=== PATIENT | female | born 1970 | race Caucasian/White ===

== ENCOUNTER 2016-07-18 14:28 | Inpatient (IN) | payer OTHER ==
[~2016-07-18] VITALS: Ht 172.7 cm; Wt 60.0 kg
[~2016-07-18 14:28] MED LIST: ASCO500C7 PO; DIPHENHYDRAMINE TOP; ERGO500014 PO; FER325 PO; FOLI-49 PO; FURO-109 PO; GABA100C PO; HYDR-906 PO; IPRA3AMP INHALATION; KENC1 TOP; LACT20SO12 GTB; LEVO175T38 PO; MONT10TA24 PO; MULTI PO; OXYC20TA41 PO; PANT40TA4 PO; RIFA550T4 PO; THIA100T10 PO; TRAZ50TA18 PO; VENL75TA PO; ZINC TOP; ZINC220T PO
[2016-07-18 14:32] VITALS: Ht 172.7 cm; Wt 60.0 kg
[2016-07-18] MEDS ORDERED: ONDANSETRON 4 MG INJ IV STA (15:21)
[2016-07-18] MEDS ORDERED: HYDROmorphONE 1 MG/ML SYG IV STA ×2 (15:21→18:22)
--- NOTE | 2016-07-18 15:51 | RADRPT ---
PROCEDURE: XR Chest 1 View. CLINICAL INDICATION: Abnormal breath sounds, abdominal pain. TECHNIQUE: AP view of the chest was obtained. COMPARISON: None. FINDINGS: The cardiomediastinal silhouette is within normal limits. The lungs are hyperexpanded. No consolidat ions are identified. No pneumothorax is seen. Mild elevation of the right hemidiaphragm is noted. O sseous structures are intact. IMPRESSION: Hyperexpanded, clear lungs. Mild elevation of the right hemidiaphragm. RPTAT: AA .Luis Gallegos MD, Date Time Electronically viewed and signed by .Luis Gallegos MD, on 07/18/2016 15:51 .P/
[2016-07-18] MEDS ORDERED: FUROSEMIDE 40 MG INJ IV ONE (16:00)
[2016-07-18 16:26] LABS: ADD SCAN DIFF NO
[2016-07-18 16:29] LABS: BASOPHILS % 0.5 % (0.0-2.0); EOSINOPHILS # 0.1 10^3/ul (0.0-0.5); EOSINOPHILS % 2.2 % (0.0-7.0); HEMATOCRIT 38.1 % (37.0-47.0); HEMOGLOBIN 12.8 g/dl (12.0-16.0); LYMPHOCYTES # 1.8 10^3/ul (0.8-2.9); LYMPHOCYTES % 29.9 % (15.0-51.0); MEAN CORPUSCULAR HEMOGLOBIN 30.1 pg (29.0-33.0); MEAN CORPUSCULAR HGB CONC 33.6 g/dl (32.0-37.0); MEAN CORPUSCULAR VOLUME 89.6 fl (82.0-101.0); MEAN PLATELET VOLUME 9.1 fl (7.4-10.4); MONOCYTE # 0.1 10^3/ul (0.3-0.9); MONOCYTES % 2.1 % (0.0-11.0); NEUTROPHIL # 3.8 10^3/ul (1.6-7.5); NEUTROPHILS % 65.1 % (39.0-77.0); PLATELET COUNT 371 10^3/UL (140-415); RED BLOOD COUNT 4.25 10^6/ul (4.20-5.40); RED CELL DISTRIBUTION WIDTH 15.6 % (11.5-14.5); WHITE BLOOD COUNT 5.9 10^3/ul (4.8-10.8)
[2016-07-18] MEDS ORDERED: LIDOCAINE 1% (MPF) 5 ML VIAL SC ONE ×2 (16:30→20:00)
[2016-07-18 16:44] LABS: ALANINE AMINOTRANSFERASE 155 IU/L (13-69); ALBUMIN 1.9 g/dl (3.3-4.9); ALBUMIN/GLOBULIN RATIO 0.59; ALKALINE PHOSPHATASE 193 IU/L (42-121); ANION GAP 10 (8-16); ASPARTATE AMINO TRANSFERASE 274 IU/L (15-46); BLOOD UREA NITROGEN 10 mg/dl (7-20); CALCIUM 7.2 mg/dl (8.4-10.2); CARBON DIOXIDE 21 mmol/L (21-31); CHLORIDE 102 mmol/L (97-110); CREATININE 0.74 mg/dl (0.44-1.00); GLUCOSE 114 mg/dl (70-220); POTASSIUM 3.6 mmol/L (3.5-5.1); SODIUM 129 mmol/L (135-144); TOTAL PROTEIN 5.1 g/dl (6.1-8.1)
[2016-07-18 16:57] LABS: TROPONIN-I < 0.012 ng/ml (0.00-0.12)
[2016-07-18 17:33] LABS: ADD UMIC YES; URINE BILIRUBIN (Dip) NEGATIVE (NEGATIVE); URINE BLOOD (Dip) NEGATIVE (NEGATIVE); URINE COLOR LT. YELLOW (YELLOW); URINE GLUCOSE (Dip) NEGATIVE (NEGATIVE); URINE KETONES (Dip) NEGATIVE (NEGATIVE); URINE LEUKOCYTE ESTERASE (Dip) 1+ (NEGATIVE); URINE NITRITE (Dip) POSITIVE (NEGATIVE); URINE TOTAL PROTEIN (Dip) NEGATIVE (NEGATIVE); URINE UROBILINOGEN (Dip) 0.2 E.U./dL (0.1-1.0)
[2016-07-18 17:41] LABS: BACTERIA,URINE FEW; URINE RBCS NONE SEEN /HPF (0)
[2016-07-18] MEDS ORDERED: CIPROFLOXACIN 400MG/D5W 200 ML IVPB ONE (18:00)
[2016-07-18] MEDS ORDERED: ONDANSETRON 4 MG INJ IV PRN (18:30)
[2016-07-18] MEDS ORDERED: ACETAMINOPHEN 325 MG TAB PO PRN ×2 (18:30→20:00)
--- NOTE | 2016-07-18 19:23 | ERA ---
ER Documentation Chief Complaint Date/Time DATE: 07/18/16 TIME: 19:21 Chief Complaint SWOLLEN LOWER EXTREMITIES,GENERALIZED BODY RASH,GEN BODY PAIN HPI Patient is a 45-year-old female with chronic pain and thyroid disease who presents with "a lot of pain". She also feels like she has a significant amount of swelling to her upper and lower extremities. She also has an allergic reaction over her body with a red rash. The symptoms started 2 days ago. She takes pain medicines but she has run out of her pain medicines. She denies any new soaps, lotions, or medications. Upon review of old medical records she has multiple been to the ER for various complaints and she frequently gets admitted. ROS All systems reviewed and are negative except as per history of present illness. Medications Home Meds Active Scripts Gabapentin* (Neurontin*) 100 Mg Capsule, 100 MG PO BID Y for PAIN, #1 CAP Prov:EYAD BECERRA MD 01/24/16 Furosemide* (Lasix*) 40 Mg Tablet, 40 MG PO DAILY for 30 Days, TAB Prov:CHENCHO BANUELOS NP 12/30/15 Venlafaxine Hcl* (Venlafaxine Hcl*) 75 Mg Tablet, 150 MG PO DAILY for 30 Days, TAB Prov:CHENCHO BANUELOS NP 12/30/15 Triamcinolone Acetonide* (Kenalog*) 0.1%-15GM Cr, 1 APPLIC TOP BID for 30 Days Prov:CHENCHO BANUELOS NP 12/30/15 Montelukast Sodium* (Montelukast Sodium*) 10 Mg Tablet, 10 MG PO HS for 30 Days , TAB Prov:CHENCHO BANUELOS NP 12/30/15 Levothyroxine Sodium* (Levoxyl*) 175 Mcg Tablet, 175 MCG PO DAILY@06 for 30 Days , TAB Prov:CHENCHO BANUELOS NP 12/30/15 [Diphenhydramine 1%/Zinc Cr] 1 APPLIC CR No Conflict Check, 1 APPLIC TOP Q6 for 30 Days Prov:CHENCHO BANUELOS NP 12/30/15 Reported Medications Ipratropium-Albuterol (Ipratropium-Albuterol) 0.5-3 Mg/3 Ml Ampul.neb, 3 ML INHALATION Q4 Y for SHORTNESS OF BREATH, #30 VIAL 01/27/16 Thiamine* (Thiamine*) 100 Mg Tablet, 100 MG PO DAILY, TAB 01/27/16 Ascorbic Acid* (Vitamin C*) 500 Mg Capsule.sa, 500 MG PO DAILY, CAP 01/06/16 Zinc Sulfate* (Zinc Sulfate*) 220 Mg Tablet, 220 MG PO DAILY, TAB 01/06/16 Oxycodone Hcl* (Oxycontin*) 20 Mg Tab.er.12h, 10 MG PO BID, TAB 01/06/16 Discontinued Reported Medications Hydrocodone/Acetaminophen ([place] 5-325 Tablet) 1 Each Tablet, 1 EACH PO Q6 Y for PAIN, TAB 01/27/16 Multivitamins* (Theragran*) 1 Tab Tab, 1 TAB PO DAILY, TAB 01/06/16 Trazodone Hcl* (Trazodone Hcl*) 50 Mg Tablet, 50 MG PO QHS, #30 TAB 09/22/15 Discontinued Scripts Pantoprazole* (Pantoprazole*) 40 Mg Tablet.dr, 40 MG PO DAILY for 30 Days Prov:EYAD BECERRA MD 01/19/16 Lactulose* (Cephulac*) 20 Gm/30 Ml Soln, 20 GM GTB Q6 for 30 Days Prov:EYAD BECERRA MD 01/19/16 Rifaximin* (Xifaxan*) 550 Mg Tablet, 550 MG PO BID for 15 Days, TAB Prov:EYAD BECERRA MD 01/19/16 Folic Acid* (Folic Acid*) 1 Mg Tablet, 1 MG PO DAILY for 30 Days, TAB Prov:CHENCHO BANUELOS NP 12/30/15 Ferrous Sulfate* (Ferrous Sulfate*) 325 Mg Tabec, 325 MG PO TID for 30 Days, TAB Prov:CHENCHO BANUELOS NP 12/30/15 Ergocalciferol* (Drisdol* (Vitamin D2)) 50,000 Unit Capsule, 12030 UNIT PO Th@ 09 for 90 Days, CAP needs level repeated in 3 months and adjust dose per level. Prov:CEHNCHO BANUELOS NP 12/30/15 Allergies Allergies: Coded Allergies: Sulfa (Sulfonamide Antibiotics) (Verified Allergy, Intermediate, 07/18/16) prochlorperazine (Verified Allergy, Intermediate, 07/18/16) Penicillins (Unverified Allergy, Unknown, 07/18/16) cefaclor (Unverified Allergy, Unknown, 07/18/16) penicillin V (Verified Allergy, Unknown, 07/18/16) PMhx/Soc History of Surgery: Yes (see notes) Anesthesia Reaction: No Hx Neurological Disorder: Yes (AMS,COMA) Hx Respiratory Disorders: Yes (ASTHMA) Hx Cardiac Disorders: No Hx Psychiatric Problems: Yes (DEPRESSION) Hx Miscellaneous Medical Probl: Yes (see notes) Hx Alcohol Use: Yes Hx Substance Use: No Hx Tobacco Use: No Smoking Status: Never smoker FmHx Family History: diabetes Physical Exam Vitals Vital Signs Date Time Temp Pulse Resp B/P Pulse Ox O2 Delivery O2 Flow Rate FiO2 07/18/16 16:35 88 17 113/71 99 Room Air 07/18/16 14:32 98.2 126 18 110/75 98 Physical Exam Const: Mild distress Head: Atraumatic Eyes: Normal Conjunctiva ENT: Normal External Ears, Nose and Mouth. Neck: Full range of motion..~ No meningismus. Resp: Clear to auscultation bilaterally Cardio: Regular rate and rhythm, no murmurs Abd: Soft, non tender, non distended. Normal bowel sounds Skin: Diffuse erythematous rash with blanching Back: No midline or flank tenderness Ext: Upper and lower extremity swelling bilaterally Neur: Awake and alert Psych: Normal Mood and Affect Result Diagram: 07/18/16 1610 07/18/16 1610 Results 24 hrs Laboratory Tests Test 07/18/16 16:10 07/18/16 16:15 White Blood Count 5.910^3/ul Red Blood Count 4.2510^6/ul Hemoglobin 12.8g/dl Hematocrit 38.1% Mean Corpuscular Volume 89.6fl Mean Corpuscular Hemoglobin 30.1pg Mean Corpuscular Hemoglobin Concent 33.6g/dl Red Cell Distribution Width 15.6% Platelet Count 81183^3/UL Mean Platelet Volume 9.1fl Neutrophils % 65.1% Lymphocytes % 29.9% Monocytes % 2.1% Eosinophils % 2.2% Basophils % 0.5% Nucleated Red Blood Cells % 0.0/100WBC Neutrophils # 3.810^3/ul Lymphocytes # 1.810^3/ul Monocytes # 0.110^3/ul Eosinophils # 0.110^3/ul Basophils # 0.010^3/ul Nucleated Red Blood Cells # 0.010^3/ul Sodium Level 129mmol/L Potassium Level 3.6mmol/L Chloride Level 102mmol/L Carbon Dioxide Level 21mmol/L Anion Gap 10 Blood Urea Nitrogen 10mg/dl Creatinine 0.74mg/dl Glucose Level 114mg/dl Calcium Level 7.2mg/dl Total Bilirubin 0.0mg/dl Direct Bilirubin 0.00mg/dl Indirect Bilirubin 0.0mg/dl Aspartate Amino Transf (AST/SGOT) 274IU/L Alanine Aminotransferase (ALT/SGPT) 155IU/L Alkaline Phosphatase 193IU/L Troponin I < 0.012ng/ml Total Protein 5.1g/dl Albumin 1.9g/dl Globulin 3.20g/dl Albumin/Globulin Ratio 0.59 Lipase < 10U/L Urine Color LT. YELLOW Urine Clarity CLEAR Urine pH 6.0 Urine Specific [place] <=1.005 Urine Ketones NEGATIVE Urine Nitrite POSITIVE Urine Bilirubin NEGATIVE Urine Urobilinogen 0.2 E.U./dL Urine Leukocyte Esterase 1+ Urine Microscopic RBC NONE SEEN/HPF Urine Microscopic WBC 2-5/HPF Urine Bacteria FEW Urine Hemoglobin NEGATIVE Urine Glucose NEGATIVE% Urine Total Protein NEGATIVE Current Medications Medications (Trade) Dose Ordered Sig/Kristy Route PRN Reason Start Time Stop Time Status Last Admin Dose Admin Hydromorphone HCl (Dilaudid) 1 mg ONCE STAT IV 07/18/16 15:21 07/18/16 15:22 DC 07/18/16 16:33 Ondansetron HCl (Zofran Inj) 4 mg ONCE STAT IV 07/18/16 15:21 07/18/16 15:22 DC 07/18/16 16:33 Furosemide (Lasix) 40 mg ONCE ONCE IV 07/18/16 16:00 07/18/16 16:01 DC 07/18/16 16:35 Lidocaine 5 ml 5 ml ONCE ONCE SC 07/18/16 16:30 07/18/16 16:31 DC Ciprofloxacin/ Dextrose (Cipro Ivpb) 200 ml @ 200 mls/hr ONCE ONCE IVPB 07/18/16 18:00 07/18/16 18:59 DC 07/18/16 18:07 Ondansetron HCl (Zofran Inj) 4 mg BRIDGE ORDER PRN IV NAUSEA AND/OR VOMITING 07/18/16 18:30 07/19/16 18:29 Acetaminophen (Tylenol Tab) 650 mg ER BRIDGE PRN PO MILD PAIN/FEVER 07/18/16 18:30 07/19/16 18:29 Hydromorphone HCl (Dilaudid) 1 mg ONCE STAT IV 07/18/16 18:22 07/18/16 18:23 DC 07/18/16 19:13 Procedures/MDM EKG read by me: Rate/Rhythm: Regular rate and rhythm at a normal rate Intervals: Normal Impression: No evidence of ischemia or arrhythmia Patient is a 45-year-old female presents with acute anasarca. She has lymphedema diffusely. The patient was also found to have acute cystitis and will be given Cipro IV as she does have allergies to sulfa and penicillin. She has hyponatremia with a sodium of 129. I do believe that she requires admission to the hospital I spoke with Dr. Montanez from the panel team for admission. The patient will be admitted to a medical surgical bed. I am unclear as to the cause of her rash at this time but it does not appear to be cellulitis. There is no petechia or purpura. Departure Diagnosis: Primary Impression: Hyponatremia Additional Impressions: Swelling Anasarca Cystitis Condition: GRACE Cooley MD Jul 18, 2016 19:23
[2016-07-18] MEDS ORDERED: GABAPENTIN 100 MG CAP PO PRN (20:00)
[2016-07-18] MEDS ORDERED: NACL 0.9% 3 ML SYG IV SCH (20:00)
[2016-07-18] MEDS ORDERED: hydrALAzine 20 MG INJ IV PRN (20:00)
[2016-07-18] MEDS ORDERED: NA PHOSPHATE/BIPHOS 133 ML ENEMA PR PRN (20:00)
[2016-07-18] MEDS ORDERED: LORAZEPAM 2 MG INJ IV PRN (20:00)
[2016-07-18] MEDS ORDERED: ALBUTEROL/IPRATROPIUM (NEB) 3 ML AMP HHN PRN (20:00)
[2016-07-18] MEDS ORDERED: DOCUSATE SODIUM 100 MG CAP PO PRN (20:00)
[2016-07-18] MEDS ORDERED: NITROGLYCERIN (SL) 0.4 MG TAB SL PRN (20:00)
[2016-07-18] MEDS ORDERED: oxyCODONE (CR) 20 MG TAB [oxyCONTIN] PO SCH (21:00)
[2016-07-18 21:44] VITALS: TEMP 98
[2016-07-18 22:39] VITALS: BP 113/68; PULSE 81; RESP 18
[2016-07-18] MEDS: oxyCODONE (CR) 10 MG TAB [oxyCONTIN] PO SCH (23:48)
[2016-07-18] MEDS: MONTELUKAST 10 MG TAB PO SCH (23:48)
[2016-07-18] MEDS: HEPARIN 5,000 UNIT/0.5 ML VIAL SC SCH (23:49)
[2016-07-19] MEDS: morphine 2 MG INJ IV PRN ×5 (01:29→19:51)
[2016-07-19] MEDS: TRIAMCINOLONE ACET 0.1% 15 GM CR TOP SCH ×3 (01:29→21:37)
[2016-07-19] MEDS: HYDROCODONE/APAP (5/325) TAB PO PRN ×3 (02:53→22:55)
[2016-07-19] MEDS ORDERED: ZOLPIDEM 5 MG TAB PO PRN (04:00)
[2016-07-19] MEDS: PANTOPRAZOLE (EC) 40 MG TAB PO SCH (05:59)
[2016-07-19] MEDS: LEVOTHYROXINE 175 MCG TAB PO SCH (05:59)
[2016-07-19 06:19] LABS: CHOL/HDL RATIO 2.8 RATIO
[2016-07-19 06:41] LABS: THYROID STIMULATING HORMONE 41.2 MIU/L (0.465-4.680)
[2016-07-19 08:25] VITALS: BP 111/59; RESP 16
[2016-07-19] MEDS: ZINC SULFATE 220 MG CAP PO SCH (09:58)
[2016-07-19] MEDS: ASCORBIC ACID 500 MG TAB PO SCH (09:58)
[2016-07-19] MEDS: oxyCODONE (CR) 10 MG TAB [oxyCONTIN] PO SCH ×2 (09:58→21:36)
[2016-07-19] MEDS: VENLAFAXINE 75 MG TABLET PO SCH (09:58)
[2016-07-19] MEDS: THIAMINE 100 MG TAB PO SCH (09:58)
[2016-07-19] MEDS: HEPARIN 5,000 UNIT/0.5 ML VIAL SC SCH ×2 (10:01→21:38)
[2016-07-19 10:55] LABS: ADD SCAN DIFF NO
[2016-07-19 11:01] LABS: POTASSIUM 3.3 mmol/L (3.5-5.1)
[2016-07-19 11:03] LABS: CREATININE 0.88 mg/dl (0.44-1.00)
[2016-07-19 11:04] LABS: CALCIUM 6.9 mg/dl (8.4-10.2); MAGNESIUM 1.4 mg/dl (1.7-2.5); PHOSPHORUS 3.2 mg/dl (2.5-4.9)
[2016-07-19 11:05] LABS: BASOPHILS % 0.5 % (0.0-2.0); EOSINOPHILS # 0.2 10^3/ul (0.0-0.5); EOSINOPHILS % 2.3 % (0.0-7.0); HEMATOCRIT 34.4 % (37.0-47.0); HEMOGLOBIN 11.7 g/dl (12.0-16.0); LYMPHOCYTES # 2.6 10^3/ul (0.8-2.9); LYMPHOCYTES % 39.3 % (15.0-51.0); MEAN CORPUSCULAR HEMOGLOBIN 30.2 pg (29.0-33.0); MEAN CORPUSCULAR VOLUME 88.7 fl (82.0-101.0); MEAN PLATELET VOLUME 9.9 fl (7.4-10.4); MONOCYTE # 0.2 10^3/ul (0.3-0.9); MONOCYTES % 3.5 % (0.0-11.0); NEUTROPHIL # 3.5 10^3/ul (1.6-7.5); NEUTROPHILS % 54.2 % (39.0-77.0); PLATELET COUNT 344 10^3/UL (140-415); RED BLOOD COUNT 3.88 10^6/ul (4.20-5.40); RED CELL DISTRIBUTION WIDTH 15.5 % (11.5-14.5); WHITE BLOOD COUNT 6.5 10^3/ul (4.8-10.8)
[2016-07-19] MEDS ORDERED: MAGNESIUM SULFATE 2 GM/50 ML 50 ML IVPB ONE (14:30)
[2016-07-19] MEDS ORDERED: DIPHENHYDRAMINE 25 MG CAP PO PRN (15:00)
[2016-07-19] MEDS: FUROSEMIDE 40 MG INJ IV SCH ×2 (15:00→17:44)
--- NOTE | 2016-07-19 15:28 | HP ---
DATE OF ADMISSION: 07/18/2016 The patient was seen and examined by me on 07/18/2016. CHIEF COMPLAINT: Lower extremity swelling and body rash. HISTORY OF PRESENT ILLNESS: A 45-year-old female with a past medical history of chronic pain syndro me, hypothyroidism, status post gastric bypass surgery in the past, pain and opioid dependence, depr ession, GERD, prior diarrhea, alcoholic liver disease and asthma, who presents with significant swel ling of her both upper and lower extremities. She is also complaining of "a lot of pain". Apparent ly she has not been taking her home thyroid medicine or her Lasix medicine as well. She was last ad mitted at our hospital from 02/03/2016 to 2015. At that time she was treated for acute jernigan es in the sensation of her bilateral legs, chronic anemia and also for possible inflammatory bowel d isease at that time. Presently the patient has been having some nausea symptoms, but no upper or lo wer GI bleeding, no fevers or chills, no chest pain or shortness of breath. Apparently, she has bee n living at home with her parents over the last 2 weeks after spending some time in a nursing facili ty before that. PAST MEDICAL HISTORY: As stated above. ALLERGIES: 1. PENICILLIN. 2. SULFA MEDICINES. 3. CEFACLOR. 4. PENICILLIN V. 5. PROCHLORPERAZINE. HOME MEDICATIONS: Based on documentation includes: 1. Ipratropium/albuterol 2. Neurontin 100 mg b.i.d. p.r.n. 3. OxyContin 100 mg b.i.d. 4. Venlafaxine 150 mg daily. 5. Lasix 40 mg p.o. daily. 6. Zinc sulfate 220 mg daily. 7. Singulair 10 mg at bedtime. 8. Levoxyl 175 mcg daily. 9. Kenalog, apply topically b.i.d. 10. Vitamin C 500 mg daily. 11. Thiamine 100 mg daily. 12. Benadryl/zinc topically every 6 hours. SOCIAL HISTORY: Former heavy alcohol abuse history and former smoker. No IV drug abuse. FAMILY HISTORY: Positive for diabetes. PAST SURGICAL HISTORY: Looks like SVT with ablation in the past. Gastric bypass surgery in the pas t. Cholecystectomy in the past. PHYSICAL EXAMINATION: VITAL SIGNS: Today T-max 98.2, pulse 88 to 126, respirations 17 to 18, blood pressure 113/71, satur ating at 99% on room air. GENERAL: The patient is lying in bed, answering questions appropriately, slightly lethargic, but in no acute distress. HEENT: Pupils are equal, round, and react to light. Extraocular muscles intact. NECK: Supple. No thyromegaly. LUNGS: Clear to auscultation bilaterally. CARDIOVASCULAR: S1, S2 heard. No rubs or gallops. ABDOMEN: Soft, nontender, nondistended. Normal bowel sounds. No rebound or guarding. MUSCULOSKELETAL: 1+ pitting edema of the bilateral lower extremities to the thighs. SKIN: Diffuse erythematous rash with blanching. NEUROLOGIC: No focal deficits. LABORATORIES: CBC is completely normal. The basic metabolic panel is normal, except sodium is 129. AST is 274, ALT is 155, alkaline phosphatase is 193. Troponin is negative x1. Lipase is normal. Free T4 is low at 0.09 and TSH is high at 41.2. IMAGING: Chest x-ray was performed and shows hyperexpanded clear lungs. ASSESSMENT AND PLAN: This is a 45-year-old female coming in with generalized weakness and lower ext remity swelling. 1. Generalized weakness and lower extremity swelling, most likely secondary to medicine noncomplian ce, as she has history of what looks like end-stage liver disease. Possibly rule out , so will admit the patient to the med/surg floor. Will put her on Lasix medication as well and get a PT and OT consult as well, as she will need physical therapy. 2. Blanching rash. Unclear source. Will continue Kenalog and order for Benadryl as well. Will ch stephanie a TSH, A1c, and lipid panel. 3. History of pain and opioid dependence. Will continue her long-acting opioid medicines at home a nd also morphine p.r.n. Will monitor for any signs of any respiratory depression or hypotension. 4. History of gastric bypass surgery. Continue to monitor for now. 5. Hypothyroidism. Again, will put her back on levothyroxine. Apparently, she admits to not takin g her medicines every day at home and her thyroid panel seems to indicate that. 6. History of depression. Again, she is on Ativan p.r.n. Also continue Effexor. 7. History of gastroesophageal reflux disease. She is on Protonix. 8. Questionable alcoholic liver disease. Continue to monitor for now. Check an ammonia level as w ell. 9. Gastrointestinal prophylaxis. PPI. 10. Deep venous thrombosis prophylaxis. Heparin subcutaneously. Dictated By: TOSIN MACIAS Conf#: [id number] DID#: [id number]
[2016-07-19] MEDS ORDERED: AZTREONAM 2 GM in SOD CHLORIDE 0.9% 100 ML IVPB SCH (15:30)
[2016-07-19 19:54] VITALS: BP 112/69; PULSE 101; RESP 18
[2016-07-19] MEDS: MONTELUKAST 10 MG TAB PO SCH (21:37)
[2016-07-20] MEDS: morphine 2 MG INJ IV PRN ×4 (00:18→10:16)
[2016-07-20 05:28] LABS: ADD SCAN DIFF NO
[2016-07-20 05:36] LABS: BASOPHILS % 0.4 % (0.0-2.0); EOSINOPHILS # 0.3 10^3/ul (0.0-0.5); HEMATOCRIT 30.4 % (37.0-47.0); HEMOGLOBIN 10.6 g/dl (12.0-16.0); LYMPHOCYTES # 3.2 10^3/ul (0.8-2.9); LYMPHOCYTES % 61.4 % (15.0-51.0); MEAN CORPUSCULAR HEMOGLOBIN 30.6 pg (29.0-33.0); MEAN CORPUSCULAR HGB CONC 34.9 g/dl (32.0-37.0); MEAN CORPUSCULAR VOLUME 87.9 fl (82.0-101.0); MEAN PLATELET VOLUME 9.4 fl (7.4-10.4); MONOCYTE # 0.2 10^3/ul (0.3-0.9); MONOCYTES % 4.4 % (0.0-11.0); NEUTROPHIL # 1.5 10^3/ul (1.6-7.5); NEUTROPHILS % 28.6 % (39.0-77.0); PLATELET COUNT 234 10^3/UL (140-415); RED BLOOD COUNT 3.46 10^6/ul (4.20-5.40); RED CELL DISTRIBUTION WIDTH 15.1 % (11.5-14.5); WHITE BLOOD COUNT 5.2 10^3/ul (4.8-10.8)
[2016-07-20 05:44] LABS: MAGNESIUM 1.7 mg/dl (1.7-2.5)
[2016-07-20] MEDS: LEVOTHYROXINE 175 MCG TAB PO SCH (05:49)
[2016-07-20] MEDS: FUROSEMIDE 40 MG INJ IV SCH ×2 (05:49→19:25)
[2016-07-20] MEDS: PANTOPRAZOLE (EC) 40 MG TAB PO SCH (05:49)
[2016-07-20 06:07] LABS: POTASSIUM 3.6 mmol/L (3.5-5.1)
[2016-07-20 06:10] LABS: CREATININE 0.84 mg/dl (0.44-1.00)
--- NOTE | 2016-07-20 07:42 | PN ---
DATE: 07/19/2016 SUBJECTIVE: The patient more awake, asking about pain medications, complaining of a rash, slightly itchy, but otherwise no acute events overnight. Seen by physical therapy, nutrition team. OBJECTIVE: VITAL SIGNS: Stable. GENERAL: The patient is lying in bed, in no acute distress. HEENT: Pupils equal, round, reactive to light. Extraocular muscles intact. NECK: Supple, no thyromegaly. LUNGS: Clear to auscultation bilaterally. CARDIOVASCULAR: S1, S2 heard. No rubs or gallops. ABDOMEN: Soft, nontender, nondistended. Normal bowel sounds. No rebound or guarding. MUSCULOSKELETAL: 1+ pitting edema bilateral lower extremities to the thighs. NEUROLOGIC: No focal deficits. SKIN: There is still a diffuse erythematous rash with blanching noted on the upper and lower extrem ities bilaterally. LABORATORY DATA: CBC is normal. Basic metabolic panel is normal except the magnesium is 1.4, sodiu m is 131, potassium is 3.3. ASSESSMENT AND PLAN: A 45-year-old female coming in with lower extremity swelling, possible noncomp liance of medications, cystitis and weakness. 1. Weakness and lower extremity swelling. Again, continue Lasix for now. Continue PT monitoring a s well. Check an ammonia level given her history of possible end-stage liver disease as well. Lucy tor ins and outs. 2. Rash. Again, continue Kenalog and Benadryl as well. Follow up wound care nurse recommendations as well. 3. History of opioid dependency and cautiously use OxyContin for now. 4. History of gastric bypass. Continue proton pump inhibitor. 5. History of depression. Continue Effexor and Ativan p.r.n. 6. History of liver disease with lower extremity swelling. Continue Lasix. 7. Gastrointestinal prophylaxis, proton pump inhibitor. 8. Deep venous thrombosis prophylaxis, heparin. Dictated By: TOSIN MACIAS Conf#: [id number] DID#: [id number]
[2016-07-20] MEDS: HYDROCODONE/APAP (5/325) TAB PO PRN (07:50)
[2016-07-20 08:43] VITALS: BP 102/67; RESP 16
[2016-07-20] MEDS ORDERED: AZTREONAM 2 GM in SOD CHLORIDE 0.9% 100 ML IVPB SCH (09:00)
[2016-07-20] MEDS: ASCORBIC ACID 500 MG TAB PO SCH (09:14)
[2016-07-20] MEDS: ZINC SULFATE 220 MG CAP PO SCH (09:14)
[2016-07-20] MEDS: THIAMINE 100 MG TAB PO SCH (09:14)
[2016-07-20] MEDS: VENLAFAXINE 75 MG TABLET PO SCH (09:14)
[2016-07-20] MEDS: oxyCODONE (CR) 10 MG TAB [oxyCONTIN] PO SCH ×2 (09:15→21:27)
[2016-07-20] MEDS: HEPARIN 5,000 UNIT/0.5 ML VIAL SC SCH ×2 (09:15→21:28)
--- NOTE | 2016-07-20 10:11 | RADRPT ---
PROCEDURE: Left upper extremity venous ultrasound CLINICAL INDICATION: Left arm pain and swelling. Deep venous thrombosis. TECHNIQUE: Ricci scale, color doppler, spectral doppler ultrasound imaging of the venous system of the left upper extremity. Augmentation maneuvers were utilized. COMPARISON: No prior studies are available for comparison. FINDINGS: LEFT: Internal jugular vein: Patent. Subclavian vein: Patent. Axillary vein: Patent. Brachial vein: Patent. Basilic vein: Patent. Cephalic vein: Patent. Radial vein: Patent. Ulnar vein: Patent. IMPRESSION: No evidence of a deep vein thrombosis involving the left upper extremity. RPTAT: AADD .Tim Armijo MD, MD Date Time Electronically viewed and signed by .Tim Armijo MD, on 07/20/2016 10:10 .B/
[2016-07-20] MEDS: GABAPENTIN 100 MG CAP PO SCH ×2 (10:15→21:26)
[2016-07-20] MEDS: TRIAMCINOLONE ACET 0.1% 15 GM CR TOP SCH ×2 (13:00→21:00)
[2016-07-20] MEDS: IMIPENEM-CILAST 500MG IV (PMX) 100 ML IVPB SCH ×2 (13:14→22:10)
[2016-07-20] MEDS ORDERED: oxyCODONE 15 MG TAB PO PRN (14:00)
--- NOTE | 2016-07-20 14:10 | PN ---
Date/Time of Note Date/Time of Note DATE: 07/20/16 TIME: 14:06 Assessment/Plan VTE Prophylaxis VTE Prophylaxis Intervention: heparin Lines/Catheters IV Catheter Type (from Nrs): Saline Lock Urinary Cath still in place: Yes Reason Cath still needed: urinary retention Assessment/Plan Chief Complaint/Hosp Course ASSESSMENT AND PLAN: 45-year-old female coming in with lower extremity swelling , possible noncompliance of medications, cystitis and weakness. 1. Weakness and lower extremity swelling - slowly improving, possibly sec to liver ds and non-compliance. - Again, continue Lasix for now. - f/u ammonia level given her history of possible end-stage liver disease as well. - Monitor ins and outs. 2. Rash: - will continue Kenalog and Benadryl as well. - will also add solumedrol - Follow up wound care nurse recommendations as well. 3. History of opioid dependency - appreciate pain/palliative consult - pain meds per their rec's 4. History of gastric bypass. Continue proton pump inhibitor. 5. History of depression. Continue Effexor and Ativan p.r.n. 6. History of liver disease with lower extremity swelling. - Continue Lasix. 7. Gastrointestinal prophylaxis, proton pump inhibitor. 8. Deep venous thrombosis prophylaxis, heparin. Problems: Subjective 24 Hr Interval Summary Free Text/Dictation No acute events overnight, seen by palliative team. Exam/Review of Systems Vital Signs Vitals Vital Signs Date Time Temp Pulse Resp B/P Pulse Ox O2 Delivery O2 Flow Rate FiO2 07/20/16 08:43 98.1 91 16 102/67 93 07/19/16 19:54 Room Air Intake and Output 07/19/16 07/19/16 07/20/16 15:00 23:00 07:00 Intake Total 1190 ml 400 ml Output Total 300 ml Balance 1190 ml 100 ml Exam GENERAL: The patient is lying in bed, in no acute distress. HEENT: Pupils equal, round, reactive to light. Extraocular muscles intact. NECK: Supple, no thyromegaly. LUNGS: Clear to auscultation bilaterally. CARDIOVASCULAR: S1, S2 heard. No rubs or gallops. ABDOMEN: Soft, nontender, nondistended. Normal bowel sounds. No rebound or guarding. MUSCULOSKELETAL: 1+ pitting edema bilateral lower extremities to the thighs. NEUROLOGIC: No focal deficits. SKIN: some diffuse erythematous rash with blanching noted on the upper and lower extremities bilaterally. Results Result Diagram: 07/20/16 0500 07/20/16 0500 Results 24 hrs Laboratory Tests Test 07/20/16 05:00 White Blood Count 5.2 Red Blood Count 3.46 L Hemoglobin 10.6 L Hematocrit 30.4 L Mean Corpuscular Volume 87.9 Mean Corpuscular Hemoglobin 30.6 Mean Corpuscular Hemoglobin Concent 34.9 Red Cell Distribution Width 15.1 H Platelet Count 234 # Mean Platelet Volume 9.4 Neutrophils % 28.6 L Lymphocytes % 61.4 H Monocytes % 4.4 Eosinophils % 5.0 Basophils % 0.4 Nucleated Red Blood Cells % 0.0 Neutrophils # 1.5 L Lymphocytes # 3.2 H Monocytes # 0.2 L Eosinophils # 0.3 Basophils # 0.0 Nucleated Red Blood Cells # 0.0 Sodium Level 128 L Potassium Level 3.6 Chloride Level 95 L Carbon Dioxide Level 27 Anion Gap 10 Blood Urea Nitrogen 14 Creatinine 0.84 Glucose Level 70 # Calcium Level 7.0 L Phosphorus Level 3.0 Magnesium Level 1.7 Medications Medications Current Medications Ondansetron HCl (Zofran Inj) 4 mg Q6H PRN IV NAUSEA AND/OR VOMITING; Start at 20:00 Acetaminophen (Tylenol Tab) 650 mg Q6H PRN PO PAIN LEVEL 1-3 OR FEVER; Start at 20:00 Docusate Sodium (Colace) 100 mg Q12H PRN PO CONSTIPATION; Start 07/18/16 at 20: 00 Magnesium Hydroxide (Milk Of Mag) 30 ml DAILY PRN PO CONSTIPATION; Start at 20:00 Sodium Biphosphate/ Sodium Phosphate (Fleet Enema) 133 ml DAILY PRN [place] CONSTIPATION; Start 07/18/16 at 20:00 Pantoprazole (Protonix Tab) 40 mg DAILY@06 PO Last administered on 07/20/16 05 :49; Admin Dose 40 MG; Start 07/19/16 at 06:00 Heparin Sodium (Porcine) (Heparin (5000 Units/0.5 ml)) 5,000 unit Q12 SC Last administered on 07/20/16 09:15; Admin Dose 5,000 UNIT; Start 07/18/16 at 21:00 Hydralazine HCl (Apresoline) 10 mg Q6H PRN IV ELEVATED BLOOD PRESSURE; Start at 20:00 Nitroglycerin (Nitroglycerin (Sl Tab) 0.4 Mg) 1 tab Q5M PRN SL ANGINA; Start at 20:00 Ascorbic Acid (Vitamin C) 500 mg DAILY PO Last administered on 07/20/16 09:14 ; Admin Dose 500 MG; Start 07/19/16 at 09:00 Levothyroxine Sodium (Synthroid) 175 mcg DAILY@06 PO Last administered on 05:49; Admin Dose 175 MCG; Start 07/19/16 at 06:00 Montelukast Sodium (Singulair) 10 mg HS PO Last administered on 07/19/16 21:37 ; Admin Dose 10 MG; Start 07/18/16 at 21:00 Thiamine HCl (Vitamin B1) 100 mg DAILY PO Last administered on 07/20/16 09:14 ; Admin Dose 100 MG; Start 07/19/16 at 09:00 Triamcinolone Acetonide (Kenalog 0.1% Cr) 1 applic BID TOP Last administered on 07/20/16 13:00; Admin Dose 1 APPLIC; Start 07/18/16 at 21:00 Venlafaxine HCl (Effexor) 150 mg DAILY PO Last administered on 07/20/16 09:14 ; Admin Dose 150 MG; Start 07/19/16 at 09:00 Zinc Sulfate (Zinc Sulfate) 220 mg DAILY PO Last administered on 07/20/16 09: 14; Admin Dose 220 MG; Start 07/19/16 at 09:00 Diphenhydramine HCl (Benadryl) 25 mg Q6H PRN PO ITCHING; Start 07/19/16 at 15: 00 Gabapentin 100 mg 100 mg BID PO Last administered on 07/20/16 10:15; Admin Dose 100 MG; Start 07/20/16 at 09:00 Imipenem/ Cilastatin Sodium (Primaxin 500 Mg/ 100 ml (Pmx)) 100 ml @ 100 mls/ hr Q8 IVPB Last administered on 07/20/16 13:14; Admin Dose 100 MLS/HR; Start 07/20/16 at 12:00 Non-Formulary Medication . BID TOP ; Start 07/20/16 at 21:00 Oxycodone HCl (Oxycontin) 30 mg BID PO ; Start 07/20/16 at 21:00 Oxycodone HCl (Roxicodone) 15 mg Q6H PRN PO PAIN LEVEL 4-6; Start 07/20/16 at 14:00 TOSIN ENCARNACION Jul 20, 2016 14:10
[2016-07-20] MEDS ORDERED: LIDOCAINE 1% (MPF) 5 ML VIAL SC ONE ×2 (14:30→15:00)
--- NOTE | 2016-07-20 18:57 | RADRPT ---
PROCEDURE: XR Chest. CLINICAL INDICATION: PICC placement TECHNIQUE: AP chest x-ray, portable COMPARISON: 07/18/2016 FINDINGS: There is interval placement of a left PICC with the tip at the cavoatrial junction. The lungs are h yperexpanded but clear. No focal opacification is seen. The patient's right arm soft tissues overl ies the right lateral thorax. The cardiomediastinal silhouette is unremarkable. The osseous struct ures are unremarkable. Surgical clips are noted in the right lower neck. IMPRESSION: Interval placement of left PICC with the tip overlying the cavoatrial junction. No evidence of pneum othorax. Otherwise, no significant interval change. RPTAT: QQ .Dov Adair MD, Date Time Electronically viewed and signed by .Dov Adair MD, on 07/20/2016 18:57 .A/
[2016-07-20] MEDS: METHYLPREDNISOLONE 40 MG INJ IV SCH ×2 (19:25→22:10)
[2016-07-20] MEDS ORDERED: SOD CHLORIDE 0.9% 100 ML ONE (20:52)
[2016-07-20] MEDS: MONTELUKAST 10 MG TAB PO SCH (21:27)
[2016-07-20 21:39] VITALS: BP 108/79; RESP 18
[2016-07-20] MEDS: TRIAMCINOLONE ACETONIDE 0.1% TOP SCH (21:59)
[2016-07-21] MEDS: oxyCODONE 5 MG TAB PO PRN ×4 (00:26→18:40)
[2016-07-21] MEDS: LEVOTHYROXINE 175 MCG TAB PO SCH (05:40)
[2016-07-21] MEDS: PANTOPRAZOLE (EC) 40 MG TAB PO SCH (05:40)
[2016-07-21] MEDS: METHYLPREDNISOLONE 40 MG INJ IV SCH ×3 (05:40→21:40)
[2016-07-21] MEDS: IMIPENEM-CILAST 500MG IV (PMX) 100 ML IVPB SCH ×3 (05:40→21:40)
[2016-07-21] MEDS: FUROSEMIDE 40 MG INJ IV SCH ×2 (05:46→18:05)
[2016-07-21 07:27] LABS: ADD SCAN DIFF NO
[2016-07-21 07:35] LABS: HEMOGLOBIN 12.1 g/dl (12.0-16.0); MEAN CORPUSCULAR HGB CONC 35.6 g/dl (32.0-37.0); MEAN CORPUSCULAR VOLUME 87.2 fl (82.0-101.0); MEAN PLATELET VOLUME 9.8 fl (7.4-10.4); PLATELET COUNT 238 10^3/UL (140-415); RED CELL DISTRIBUTION WIDTH 14.4 % (11.5-14.5); WHITE BLOOD COUNT 2.1 10^3/ul (4.8-10.8)
[2016-07-21 07:52] LABS: POTASSIUM 3.7 mmol/L (3.5-5.1)
[2016-07-21 07:53] VITALS: BP 132/73; RESP 20
[2016-07-21 07:54] LABS: CREATININE 0.77 mg/dl (0.44-1.00)
[2016-07-21 07:55] LABS: CALCIUM 7.2 mg/dl (8.4-10.2)
[2016-07-21] MEDS: TRIAMCINOLONE ACET 0.1% 15 GM CR TOP SCH ×2 (09:00→21:00)
[2016-07-21 10:17] LABS: LYMPHOCYTES # 0.8 10^3/ul (0.8-2.9); NEUTROPHIL # 1.3 10^3/ul (1.6-7.5)
[2016-07-21 10:26] LABS: PLATELET ESTIMATE PLT APPEAR ADEQUATE
[2016-07-21] MEDS: HEPARIN 5,000 UNIT/0.5 ML VIAL SC SCH ×2 (10:26→20:40)
[2016-07-21] MEDS: ONDANSETRON 4 MG INJ IV PRN ×2 (10:28→20:48)
[2016-07-21] MEDS: GABAPENTIN 100 MG CAP PO SCH ×2 (10:28→20:38)
[2016-07-21] MEDS: THIAMINE 100 MG TAB PO SCH (10:28)
[2016-07-21] MEDS: oxyCODONE (CR) 10 MG TAB [oxyCONTIN] PO SCH ×2 (10:29→20:39)
[2016-07-21] MEDS: VENLAFAXINE 75 MG TABLET PO SCH (10:29)
[2016-07-21] MEDS: ZINC SULFATE 220 MG CAP PO SCH (10:30)
[2016-07-21] MEDS: TRIAMCINOLONE ACETONIDE 0.1% TOP SCH ×2 (10:30→20:41)
[2016-07-21] MEDS: ASCORBIC ACID 500 MG TAB PO SCH (10:30)
--- NOTE | 2016-07-21 10:45 | RADRPT ---
PROCEDURE: Ultrasound guidance for placement of needle in left upper extremity vein. CLINICAL INDICATION: Venous access. TECHNIQUE: Limited sonography of the left upper extremity was performed. Ultrasound images were recorded and s tored in the patient's medical record. COMPARISON: None. FINDINGS: The ultrasound images demonstrate a patent left upper extremity vein. The PICC line was inserted by the PICC line nurse. IMPRESSION: 1. Ultrasound guidance for a needle placement in a left upper extremity vein. 2. The left upper extremity vein is patent. RPTAT: QQ .Abebe Goel MD, MD Date Time Electronically viewed and signed by .Abebe Goel MD, MD on 07/21/2016 10:44 .R/
--- NOTE | 2016-07-21 14:40 | PN ---
Date/Time of Note Date/Time of Note DATE: 07/21/16 TIME: 14:28 Assessment/Plan VTE Prophylaxis VTE Prophylaxis Intervention: heparin Lines/Catheters IV Catheter Type (from Nrs): PICC Line Central line still needed: Yes Urinary Cath still in place: Yes Reason Cath still needed: urinary retention Assessment/Plan Chief Complaint/Hosp Course ASSESSMENT AND PLAN: 45-year-old female coming in with lower extremity swelling , possible noncompliance of medications, cystitis and weakness. 1. Weakness and lower extremity swelling - slowly improving, possibly sec to liver ds and non-compliance. - Again, continue Lasix for now. - f/u ammonia level given her history of possible end-stage liver disease as well. - Monitor ins and outs. 2. Rash: - will continue Kenalog and Benadryl as well. - continue solumedrol IV for now - Follow up wound care nurse recommendations as well. 3. History of opioid dependency - appreciate pain/palliative consult - pain meds per their rec's 4. History of gastric bypass. Continue proton pump inhibitor. 5. History of depression. Continue Effexor and Ativan p.r.n. 6. History of liver disease with lower extremity swelling. - Continue Lasix. 7. Gastrointestinal prophylaxis, proton pump inhibitor. 8. Deep venous thrombosis prophylaxis, heparin. Problems: Subjective 24 Hr Interval Summary Free Text/Dictation No acute events overnight, had PICC placement yesterday. Exam/Review of Systems Vital Signs Vitals Vital Signs Date Time Temp Pulse Resp B/P Pulse Ox O2 Delivery O2 Flow Rate FiO2 07/21/16 07:53 98.6 81 20 132/73 98 07/19/16 19:54 Room Air Intake and Output 07/20/16 07/20/16 07/21/16 15:00 23:00 07:00 Intake Total 100 ml 1280 ml 200 ml Output Total 2400 ml Balance 100 ml -1120 ml 200 ml Exam GENERAL: The patient is lying in bed, in no acute distress. HEENT: Pupils equal, round, reactive to light. Extraocular muscles intact. NECK: Supple, no thyromegaly. LUNGS: Clear to auscultation bilaterally. CARDIOVASCULAR: S1, S2 heard. No rubs or gallops. ABDOMEN: Soft, nontender, nondistended. Normal bowel sounds. No rebound or guarding. MUSCULOSKELETAL: 1+ pitting edema bilateral lower extremities to the thighs. NEUROLOGIC: No focal deficits. SKIN: some diffuse erythematous rash with blanching noted on the upper and lower extremities bilaterally. Results Result Diagram: 07/21/1642907/21/16429 Results 24 hrs Laboratory Tests Test 07/21/16 04:30 White Blood Count 2.1 #L Red Blood Count 3.90 L Hemoglobin 12.1 Hematocrit 34.0 L Mean Corpuscular Volume 87.2 Mean Corpuscular Hemoglobin 31.0 Mean Corpuscular Hemoglobin Concent 35.6 Red Cell Distribution Width 14.4 Platelet Count 238 Mean Platelet Volume 9.8 Neutrophils % 62.0 Band Neutrophils % 1.0 Lymphocytes % 36.0 Monocytes % 1.0 Neutrophils # 1.3 L Lymphocytes # 0.8 Monocytes # 0.0 L Platelet Estimate PLT APPEAR ADEQUATE Sodium Level 127 L Potassium Level 3.7 Chloride Level 89 L Carbon Dioxide Level 28 Anion Gap 14 Blood Urea Nitrogen 17 Creatinine 0.77 Glucose Level 108 Calcium Level 7.2 L Ammonia 31 H Medications Medications Current Medications Ondansetron HCl (Zofran Inj) 4 mg Q6H PRN IV NAUSEA AND/OR VOMITING Last administered on 07/21/16 10:28; Admin Dose 4 MG; Start 07/18/16 at 20:00 Acetaminophen (Tylenol Tab) 650 mg Q6H PRN PO PAIN LEVEL 1-3 OR FEVER; Start at 20:00 Docusate Sodium (Colace) 100 mg Q12H PRN PO CONSTIPATION; Start 07/18/16 at 20: 00 Magnesium Hydroxide (Milk Of Mag) 30 ml DAILY PRN PO CONSTIPATION; Start at 20:00 Sodium Biphosphate/ Sodium Phosphate (Fleet Enema) 133 ml DAILY PRN [place] CONSTIPATION; Start 07/18/16 at 20:00 Pantoprazole (Protonix Tab) 40 mg DAILY@06 PO Last administered on 07/21/16 05 :40; Admin Dose 40 MG; Start 07/19/16 at 06:00 Heparin Sodium (Porcine) (Heparin (5000 Units/0.5 ml)) 5,000 unit Q12 SC Last administered on 07/21/16 10:26; Admin Dose 5,000 UNIT; Start 07/18/16 at 21:00 Hydralazine HCl (Apresoline) 10 mg Q6H PRN IV ELEVATED BLOOD PRESSURE; Start at 20:00 Nitroglycerin (Nitroglycerin (Sl Tab) 0.4 Mg) 1 tab Q5M PRN SL ANGINA; Start at 20:00 Ascorbic Acid (Vitamin C) 500 mg DAILY PO Last administered on 07/21/16 10:30 ; Admin Dose 500 MG; Start 07/19/16 at 09:00 Levothyroxine Sodium (Synthroid) 175 mcg DAILY@06 PO Last administered on 05:40; Admin Dose 175 MCG; Start 07/19/16 at 06:00 Montelukast Sodium (Singulair) 10 mg HS PO Last administered on 07/20/16 21:27 ; Admin Dose 10 MG; Start 07/18/16 at 21:00 Thiamine HCl (Vitamin B1) 100 mg DAILY PO Last administered on 07/21/16 10:28 ; Admin Dose 100 MG; Start 07/19/16 at 09:00 Triamcinolone Acetonide (Kenalog 0.1% Cr) 1 applic BID TOP Last administered on 07/20/16 13:00; Admin Dose 1 APPLIC; Start 07/18/16 at 21:00 Venlafaxine HCl (Effexor) 150 mg DAILY PO Last administered on 07/21/16 10:29 ; Admin Dose 150 MG; Start 07/19/16 at 09:00 Zinc Sulfate (Zinc Sulfate) 220 mg DAILY PO Last administered on 07/21/16 10: 30; Admin Dose 220 MG; Start 07/19/16 at 09:00 Diphenhydramine HCl (Benadryl) 25 mg Q6H PRN PO ITCHING; Start 07/19/16 at 15: 00 Gabapentin 100 mg 100 mg BID PO Last administered on 07/21/16 10:28; Admin Dose 100 MG; Start 07/20/16 at 09:00 Imipenem/ Cilastatin Sodium (Primaxin 500 Mg/ 100 ml (Pmx)) 100 ml @ 100 mls/ hr Q8 IVPB Last administered on 07/21/16 13:42; Admin Dose 100 MLS/HR; Start 07/20/16 at 12:00 Non-Formulary Medication . BID TOP Last administered on 07/21/16 10:30; Admin Dose 1 EA; Start 07/20/16 at 21:00 Oxycodone HCl (Oxycontin) 30 mg BID PO Last administered on 07/21/16 10:29; Admin Dose 30 MG; Start 07/20/16 at 21:00 Methylprednisolone Sodium Succinate (Solu-Medrol) 40 mg Q8 IV Last administered on 07/21/16 13:42; Admin Dose 40 MG; Start 07/20/16 at 14:30 Oxycodone HCl (Roxicodone) 15 mg Q6H PRN PO PAIN LEVEL 4-6 Last administered on 07/21/16 12:49; Admin Dose 15 MG; Start 07/20/16 at 15:00 IV Flush (NS 10 ml) 10 ml PRN PRN IV IV PROTOCOL; Start 07/20/16 at 21:30 TOSIN ENCARNACION Jul 21, 2016 14:40
[2016-07-21 20:20] VITALS: BP 108/75; RESP 18
[2016-07-21] MEDS: MONTELUKAST 10 MG TAB PO SCH (20:41)
[2016-07-22] MEDS: DIPHENHYDRAMINE 50 MG INJ IV PRN (00:35)
[2016-07-22] MEDS: oxyCODONE 5 MG TAB PO PRN ×3 (04:29→18:39)
[2016-07-22] MEDS: IMIPENEM-CILAST 500MG IV (PMX) 100 ML IVPB SCH ×3 (05:27→21:55)
[2016-07-22] MEDS: LEVOTHYROXINE 175 MCG TAB PO SCH (05:27)
[2016-07-22] MEDS: PANTOPRAZOLE (EC) 40 MG TAB PO SCH (05:27)
[2016-07-22] MEDS: METHYLPREDNISOLONE 40 MG INJ IV SCH ×3 (05:27→21:53)
[2016-07-22] MEDS: FUROSEMIDE 40 MG INJ IV SCH ×2 (05:28→17:31)
[2016-07-22 08:08] LABS: ADD SCAN DIFF NO
[2016-07-22 08:15] LABS: HEMATOCRIT 34.5 % (37.0-47.0); HEMOGLOBIN 11.8 g/dl (12.0-16.0); LYMPHOCYTES # 1.5 10^3/ul (0.8-2.9); LYMPHOCYTES % 37.1 % (15.0-51.0); MEAN CORPUSCULAR HEMOGLOBIN 30.1 pg (29.0-33.0); MEAN CORPUSCULAR HGB CONC 34.2 g/dl (32.0-37.0); MEAN PLATELET VOLUME 9.5 fl (7.4-10.4); MONOCYTE # 0.2 10^3/ul (0.3-0.9); MONOCYTES % 3.9 % (0.0-11.0); NEUTROPHIL # 2.4 10^3/ul (1.6-7.5); NEUTROPHILS % 57.8 % (39.0-77.0); PLATELET COUNT 225 10^3/UL (140-415); RED BLOOD COUNT 3.92 10^6/ul (4.20-5.40); RED CELL DISTRIBUTION WIDTH 14.1 % (11.5-14.5); WHITE BLOOD COUNT 4.1 10^3/ul (4.8-10.8)
[2016-07-22 08:16] VITALS: BP 115/78; RESP 17
[2016-07-22 08:27] LABS: POTASSIUM 3.4 mmol/L (3.5-5.1)
[2016-07-22 08:30] LABS: CREATININE 1.01 mg/dl (0.44-1.00)
[2016-07-22 08:31] LABS: CALCIUM 7.5 mg/dl (8.4-10.2)
[2016-07-22] MEDS: HEPARIN 5,000 UNIT/0.5 ML VIAL SC SCH ×2 (08:34→21:55)
[2016-07-22] MEDS: THIAMINE 100 MG TAB PO SCH (08:34)
[2016-07-22] MEDS: ZINC SULFATE 220 MG CAP PO SCH (08:34)
[2016-07-22] MEDS: GABAPENTIN 100 MG CAP PO SCH ×2 (08:35→21:52)
[2016-07-22] MEDS: VENLAFAXINE 75 MG TABLET PO SCH (08:35)
[2016-07-22] MEDS: ASCORBIC ACID 500 MG TAB PO SCH (08:35)
[2016-07-22] MEDS: oxyCODONE (CR) 10 MG TAB [oxyCONTIN] PO SCH ×2 (08:35→21:52)
[2016-07-22] MEDS: TRIAMCINOLONE ACETONIDE 0.1% TOP SCH ×2 (08:41→22:02)
--- NOTE | 2016-07-22 12:45 | PN ---
Date/Time of Note Date/Time of Note DATE: 07/22/16 TIME: 12:42 Assessment/Plan VTE Prophylaxis VTE Prophylaxis Intervention: heparin Lines/Catheters IV Catheter Type (from Nrsg): PICC Line Central line still needed: Yes Urinary Cath still in place: Yes Reason Cath still needed: urinary retention Assessment/Plan Chief Complaint/Hosp Course ASSESSMENT AND PLAN: 45-year-old female coming in with lower extremity swelling , possible noncompliance of medications, cystitis and weakness. 1. Weakness and lower extremity swelling - slowly improving, possibly sec to liver ds and non-compliance. - Again, continue Lasix for now. - f/u ammonia level given her history of possible end-stage liver disease as well. - Monitor ins and outs. 2. Rash - improved - will continue Kenalog and Benadryl as well. - continue solumedrol IV for now - Follow up wound care nurse recommendations as well. 3. History of opioid dependency - appreciate pain/palliative consult - pain meds per their rec's 4. History of gastric bypass. Continue proton pump inhibitor. 5. History of depression. Continue Effexor and Ativan p.r.n. 6. History of liver disease with lower extremity swelling. - Continue Lasix. 7. Gastrointestinal prophylaxis, proton pump inhibitor. 8. Deep venous thrombosis prophylaxis, heparin. Problems: Subjective 24 Hr Interval Summary Free Text/Dictation Pt had no acute events overnight. Exam/Review of Systems Vital Signs Vitals Vital Signs Date Time Temp Pulse Resp B/P Pulse Ox O2 Delivery O2 Flow Rate FiO2 07/22/16 08:16 98.3 89 17 115/78 92 07/19/16 19:54 Room Air Intake and Output 07/21/16 07/21/16 07/22/16 15:00 23:00 07:00 Intake Total 100 ml 1120 ml 680 ml Output Total 1450 ml 1800 ml Balance 100 ml -330 ml -1120 ml Exam GENERAL: The patient is lying in bed, in no acute distress. HEENT: Pupils equal, round, reactive to light. Extraocular muscles intact. NECK: Supple, no thyromegaly. LUNGS: Clear to auscultation bilaterally. CARDIOVASCULAR: S1, S2 heard. No rubs or gallops. ABDOMEN: Soft, nontender, nondistended. Normal bowel sounds. No rebound or guarding. MUSCULOSKELETAL: 1+ pitting edema bilateral lower extremities to the thighs. NEUROLOGIC: No focal deficits. SKIN: less erythematous rash with blanching noted on the upper and lower extremities bilaterally. Results Result Diagram: 07/22/16 0740 07/22/16 0740 Results 24 hrs Laboratory Tests Test 07/22/16 07:40 White Blood Count 4.1 #L Red Blood Count 3.92 L Hemoglobin 11.8 L Hematocrit 34.5 L Mean Corpuscular Volume 88.0 Mean Corpuscular Hemoglobin 30.1 Mean Corpuscular Hemoglobin Concent 34.2 Red Cell Distribution Width 14.1 Platelet Count 225 Mean Platelet Volume 9.5 Neutrophils % 57.8 Lymphocytes % 37.1 Monocytes % 3.9 Eosinophils % 0.0 Basophils % 0.0 Nucleated Red Blood Cells % 0.0 Neutrophils # 2.4 Lymphocytes # 1.5 Monocytes # 0.2 L Eosinophils # 0.0 Basophils # 0.0 Nucleated Red Blood Cells # 0.0 Sodium Level 128 L Potassium Level 3.4 L Chloride Level 84 L Carbon Dioxide Level 36 H Anion Gap 11 Blood Urea Nitrogen 21 H Creatinine 1.01 H Glucose Level 96 Calcium Level 7.5 L Medications Medications Current Medications Ondansetron HCl (Zofran Inj) 4 mg Q6H PRN IV NAUSEA AND/OR VOMITING Last administered on 07/21/16 20:48; Admin Dose 4 MG; Start 07/18/16 at 20:00 Acetaminophen (Tylenol Tab) 650 mg Q6H PRN PO PAIN LEVEL 1-3 OR FEVER; Start at 20:00 Docusate Sodium (Colace) 100 mg Q12H PRN PO CONSTIPATION; Start 07/18/16 at 20: 00 Magnesium Hydroxide (Milk Of Mag) 30 ml DAILY PRN PO CONSTIPATION; Start at 20:00 Sodium Biphosphate/ Sodium Phosphate (Fleet Enema) 133 ml DAILY PRN HI CONSTIPATION; Start 07/18/16 at 20:00 Pantoprazole (Protonix Tab) 40 mg DAILY@06 PO Last administered on 07/22/16 05 :27; Admin Dose 40 MG; Start 07/19/16 at 06:00 Heparin Sodium (Porcine) (Heparin (5000 Units/0.5 ml)) 5,000 unit Q12 SC Last administered on 07/22/16 08:34; Admin Dose 5,000 UNIT; Start 07/18/16 at 21:00 Hydralazine HCl (Apresoline) 10 mg Q6H PRN IV ELEVATED BLOOD PRESSURE; Start at 20:00 Nitroglycerin (Nitroglycerin (Sl Tab) 0.4 Mg) 1 tab Q5M PRN SL ANGINA; Start at 20:00 Ascorbic Acid (Vitamin C) 500 mg DAILY PO Last administered on 07/22/16 08:35 ; Admin Dose 500 MG; Start 07/19/16 at 09:00 Levothyroxine Sodium (Synthroid) 175 mcg DAILY@06 PO Last administered on 05:27; Admin Dose 175 MCG; Start 07/19/16 at 06:00 Montelukast Sodium (Singulair) 10 mg HS PO Last administered on 07/21/16 20:41 ; Admin Dose 10 MG; Start 07/18/16 at 21:00 Thiamine HCl (Vitamin B1) 100 mg DAILY PO Last administered on 07/22/16 08:34 ; Admin Dose 100 MG; Start 07/19/16 at 09:00 Triamcinolone Acetonide (Kenalog 0.1% Cr) 1 applic BID TOP Last administered on 07/20/16 13:00; Admin Dose 1 APPLIC; Start 07/18/16 at 21:00; Status Future Hold Venlafaxine HCl (Effexor) 150 mg DAILY PO Last administered on 07/22/16 08:35 ; Admin Dose 150 MG; Start 07/19/16 at 09:00 Zinc Sulfate (Zinc Sulfate) 220 mg DAILY PO Last administered on 07/22/16 08: 34; Admin Dose 220 MG; Start 07/19/16 at 09:00 Diphenhydramine HCl (Benadryl) 25 mg Q6H PRN PO ITCHING; Start 07/19/16 at 15: 00 Gabapentin 100 mg 100 mg BID PO Last administered on 07/22/16 08:35; Admin Dose 100 MG; Start 07/20/16 at 09:00 Imipenem/ Cilastatin Sodium (Primaxin 500 Mg/ 100 ml (Pmx)) 100 ml @ 100 mls/ hr Q8 IVPB Last administered on 07/22/16 05:27; Admin Dose 100 MLS/HR; Start 07/20/16 at 12:00 Non-Formulary Medication . BID TOP Last administered on 07/22/16 08:41; Admin Dose 1 EA; Start 07/20/16 at 21:00 Oxycodone HCl (Oxycontin) 30 mg BID PO Last administered on 07/22/16 08:35; Admin Dose 30 MG; Start 07/20/16 at 21:00 Methylprednisolone Sodium Succinate (Solu-Medrol) 40 mg Q8 IV Last administered on 07/22/16 05:27; Admin Dose 40 MG; Start 07/20/16 at 14:30 Oxycodone HCl (Roxicodone) 15 mg Q6H PRN PO PAIN LEVEL 4-6 Last administered on 07/22/16 12:23; Admin Dose 15 MG; Start 07/20/16 at 15:00 IV Flush (NS 10 ml) 10 ml PRN PRN IV IV PROTOCOL; Start 07/20/16 at 21:30 Diphenhydramine HCl (Benadryl) 50 mg QHS PRN IV INSOMNIA Last administered on 00:35; Admin Dose 50 MG; Start 07/21/16 at 18:30 Lactulose (Enulose) 10 gm Q8 PO ; Start 07/22/16 at 14:00 TOSIN ENCARNACION Jul 22, 2016 12:45
[2016-07-22] MEDS: LACTULOSE 30ML CUP PO SCH ×2 (13:26→21:55)
[2016-07-22] MEDS: ONDANSETRON 4 MG INJ IV PRN (15:15)
[2016-07-22 21:20] VITALS: BP 109/79; RESP 18
[2016-07-22] MEDS: MONTELUKAST 10 MG TAB PO SCH (21:53)
[2016-07-23] MEDS: oxyCODONE 5 MG TAB PO PRN ×3 (01:21→18:47)
[2016-07-23] MEDS: DIPHENHYDRAMINE 50 MG INJ IV PRN (01:22)
[2016-07-23] MEDS: LACTULOSE 30ML CUP PO SCH ×3 (05:37→21:58)
[2016-07-23] MEDS: FUROSEMIDE 40 MG INJ IV SCH (05:37)
[2016-07-23] MEDS: LEVOTHYROXINE 175 MCG TAB PO SCH (05:38)
[2016-07-23] MEDS: METHYLPREDNISOLONE 40 MG INJ IV SCH ×3 (05:38→21:56)
[2016-07-23] MEDS: PANTOPRAZOLE (EC) 40 MG TAB PO SCH (05:38)
[2016-07-23] MEDS: IMIPENEM-CILAST 500MG IV (PMX) 100 ML IVPB SCH ×3 (05:42→21:57)
[2016-07-23 06:52] LABS: ADD SCAN DIFF NO
[2016-07-23 06:54] LABS: HEMATOCRIT 33.3 % (37.0-47.0); HEMOGLOBIN 11.4 g/dl (12.0-16.0); LYMPHOCYTES # 1.7 10^3/ul (0.8-2.9); LYMPHOCYTES % 35.7 % (15.0-51.0); MEAN CORPUSCULAR HEMOGLOBIN 30.6 pg (29.0-33.0); MEAN CORPUSCULAR HGB CONC 34.2 g/dl (32.0-37.0); MEAN CORPUSCULAR VOLUME 89.5 fl (82.0-101.0); MEAN PLATELET VOLUME 9.7 fl (7.4-10.4); MONOCYTE # 0.2 10^3/ul (0.3-0.9); MONOCYTES % 4.8 % (0.0-11.0); NEUTROPHIL # 2.9 10^3/ul (1.6-7.5); NEUTROPHILS % 58.9 % (39.0-77.0); PLATELET COUNT 181 10^3/UL (140-415); RED BLOOD COUNT 3.72 10^6/ul (4.20-5.40); RED CELL DISTRIBUTION WIDTH 14.4 % (11.5-14.5); WHITE BLOOD COUNT 4.8 10^3/ul (4.8-10.8)
[2016-07-23 07:41] VITALS: BP 118/80; RESP 20
[2016-07-23 07:44] LABS: POTASSIUM 3.7 mmol/L (3.5-5.1)
[2016-07-23 07:46] LABS: CREATININE 0.82 mg/dl (0.44-1.00)
[2016-07-23 07:47] LABS: CALCIUM 7.3 mg/dl (8.4-10.2)
[2016-07-23] MEDS: GABAPENTIN 100 MG CAP PO SCH ×2 (08:53→21:59)
[2016-07-23] MEDS: VENLAFAXINE 75 MG TABLET PO SCH (08:53)
[2016-07-23] MEDS: ASCORBIC ACID 500 MG TAB PO SCH (08:53)
[2016-07-23] MEDS: ZINC SULFATE 220 MG CAP PO SCH (08:53)
[2016-07-23] MEDS: THIAMINE 100 MG TAB PO SCH (08:53)
[2016-07-23] MEDS: oxyCODONE (CR) 10 MG TAB [oxyCONTIN] PO SCH ×2 (08:54→22:06)
[2016-07-23] MEDS: HEPARIN 5,000 UNIT/0.5 ML VIAL SC SCH ×2 (08:54→21:58)
[2016-07-23] MEDS: TRIAMCINOLONE ACETONIDE 0.1% TOP SCH ×2 (08:56→22:11)
--- NOTE | 2016-07-23 11:17 | PN ---
Date/Time of Note Date/Time of Note DATE: 07/23/16 TIME: 11:15 Assessment/Plan VTE Prophylaxis VTE Prophylaxis Intervention: SCD's Lines/Catheters IV Catheter Type (from Nrsg): PICC Line Central line still needed: Yes Urinary Cath still in place: Yes Reason Cath still needed: other (indicate) (Patient requests to leave in place despite awareness of riskd) Assessment/Plan Assessment/Plan 45-year-old female coming in with lower extremity swelling, skin rash and weakness. 1. Weakness and lower extremity swelling 2. Rash : ?Vasculitis- improved 3. Opioid dependency - appreciate pain/palliative consult - pain meds per their rec's 4. S/p gastric bypass. Continue proton pump inhibitor. 5. Chronic depression. : stable 6. Alcoholic liver disease with lower extremity swelling. 7. ESBL UTI 8. Weight loss + elevated CA 19-9, CA 125. and CEA 9. Colonic ulcerations on last colonoscopy with possible IBD on path 10. Episodes of confusion with elevated ammonia 11. Hyponatremia: ?cause 12. Constipation, ?OIC 13. Noncompliance Plan: * Nephro consult for hyponatremia * Oncology consult for elevated tumor markers * GI consult for IBD mgt * increase dosing of lactulose to help with constipation as well as ammonia levels * Continue abx for UTI * Continue steroids for rash * Continue all meds and supportive care * Gastrointestinal prophylaxis, proton pump inhibitor. * Deep venous thrombosis prophylaxis, heparin. Subjective 24 Hr Interval Summary Free Text/Dictation rash is improving sweling has gone down c/o constipation Exam/Review of Systems Vital Signs Vitals Vital Signs Date Time Temp Pulse Resp B/P Pulse Ox O2 Delivery O2 Flow Rate FiO2 07/23/16 07:41 97.7 85 20 118/80 95 07/19/16 19:54 Room Air Intake and Output 07/22/16 07/22/16 07/23/16 14:59 22:59 06:59 Intake Total 100 ml 600 ml 920 ml Output Total 2750 ml 2000 ml Balance 100 ml -2150 ml -1080 ml Exam Constitutional: alert, frail, oriented, No distress Psych: nl mood/affect Head: atraumatic, normocephalic Eyes: PERRL, No icteric ENMT: mucosa pink and moist Neck: supple Respiratory: clear to auscultation, diminished breath sounds Cardiovascular: regular rate and rhythm, No murmurs/extra sounds Gastrointestinal: bowel sounds, distended (mildly), soft Extremities: No edema Neurological: nl mental status, nl speech Skin: No rash or lesions Results Result Diagram: 07/23/1653407/23/16534 Results 24 hrs Laboratory Tests Test 07/23/16 05:35 White Blood Count 4.8 Red Blood Count 3.72 L Hemoglobin 11.4 L Hematocrit 33.3 L Mean Corpuscular Volume 89.5 Mean Corpuscular Hemoglobin 30.6 Mean Corpuscular Hemoglobin Concent 34.2 Red Cell Distribution Width 14.4 Platelet Count 181 Mean Platelet Volume 9.7 Neutrophils % 58.9 Lymphocytes % 35.7 Monocytes % 4.8 Eosinophils % 0.0 Basophils % 0.0 Nucleated Red Blood Cells % 0.0 Neutrophils # 2.9 Lymphocytes # 1.7 Monocytes # 0.2 L Eosinophils # 0.0 Basophils # 0.0 Nucleated Red Blood Cells # 0.0 Sodium Level 128 L Potassium Level 3.7 Chloride Level 85 L Carbon Dioxide Level 35 H Anion Gap 12 Blood Urea Nitrogen 28 H Creatinine 0.82 Glucose Level 73 Calcium Level 7.3 L Ammonia 32 H Medications Medications Current Medications Ondansetron HCl (Zofran Inj) 4 mg Q6H PRN IV NAUSEA AND/OR VOMITING Last administered on 07/22/16 15:15; Admin Dose 4 MG; Start 07/18/16 at 20:00 Acetaminophen (Tylenol Tab) 650 mg Q6H PRN PO PAIN LEVEL 1-3 OR FEVER Last administered on 07/23/16 05:39; Admin Dose 650 MG; Start 07/18/16 at 20:00 Docusate Sodium (Colace) 100 mg Q12H PRN PO CONSTIPATION Last administered on 21:58; Admin Dose 100 MG; Start 07/18/16 at 20:00 Magnesium Hydroxide (Milk Of Mag) 30 ml DAILY PRN PO CONSTIPATION; Start at 20:00 Sodium Biphosphate/ Sodium Phosphate (Fleet Enema) 133 ml DAILY PRN [place] CONSTIPATION; Start 07/18/16 at 20:00 Pantoprazole (Protonix Tab) 40 mg DAILY@06 PO Last administered on 07/23/16 05: 38; Admin Dose 40 MG; Start 07/19/16 at 06:00 Heparin Sodium (Porcine) (Heparin (5000 Units/0.5 ml)) 5,000 unit Q12 SC Last administered on 07/23/16 08:54; Admin Dose 5,000 UNIT; Start 07/18/16 at 21:00 Hydralazine HCl (Apresoline) 10 mg Q6H PRN IV ELEVATED BLOOD PRESSURE; Start at 20:00 Nitroglycerin (Nitroglycerin (Sl Tab) 0.4 Mg) 1 tab Q5M PRN SL ANGINA; Start at 20:00 Ascorbic Acid (Vitamin C) 500 mg DAILY PO Last administered on 07/23/16 08:53; Admin Dose 500 MG; Start 07/19/16 at 09:00 Levothyroxine Sodium (Synthroid) 175 mcg DAILY@06 PO Last administered on 05:38; Admin Dose 175 MCG; Start 07/19/16 at 06:00 Montelukast Sodium (Singulair) 10 mg HS PO Last administered on 07/22/16 21:53 ; Admin Dose 10 MG; Start 07/18/16 at 21:00 Thiamine HCl (Vitamin B1) 100 mg DAILY PO Last administered on 07/23/16 08:53; Admin Dose 100 MG; Start 07/19/16 at 09:00 Triamcinolone Acetonide (Kenalog 0.1% Cr) 1 applic BID TOP Last administered on 07/20/16 13:00; Admin Dose 1 APPLIC; Start 07/18/16 at 21:00; Status Future Hold Venlafaxine HCl (Effexor) 150 mg DAILY PO Last administered on 07/23/16 08:53; Admin Dose 150 MG; Start 07/19/16 at 09:00 Zinc Sulfate (Zinc Sulfate) 220 mg DAILY PO Last administered on 07/23/16 08:53 ; Admin Dose 220 MG; Start 07/19/16 at 09:00 Diphenhydramine HCl (Benadryl) 25 mg Q6H PRN PO ITCHING; Start 07/19/16 at 15: 00 Gabapentin 100 mg 100 mg BID PO Last administered on 07/23/16 08:53; Admin Dose 100 MG; Start 07/20/16 at 09:00 Imipenem/ Cilastatin Sodium (Primaxin 500 Mg/ 100 ml (Pmx)) 100 ml @ 100 mls/ hr Q8 IVPB Last administered on 07/23/16 05:42; Admin Dose 100 MLS/HR; Start at 12:00 Non-Formulary Medication . BID TOP Last administered on 07/23/16 08:56; Admin Dose 1 EA; Start 07/20/16 at 21:00 Oxycodone HCl (Oxycontin) 30 mg BID PO Last administered on 07/23/16 08:54; Admin Dose 30 MG; Start 07/20/16 at 21:00 Methylprednisolone Sodium Succinate (Solu-Medrol) 40 mg Q8 IV Last administered on 07/23/16 05:38; Admin Dose 40 MG; Start 07/20/16 at 14:30 Oxycodone HCl (Roxicodone) 15 mg Q6H PRN PO PAIN LEVEL 4-6 Last administered on 07/23/16 01:21; Admin Dose 15 MG; Start 07/20/16 at 15:00 IV Flush (NS 10 ml) 10 ml PRN PRN IV IV PROTOCOL; Start 07/20/16 at 21:30 Diphenhydramine HCl (Benadryl) 50 mg QHS PRN IV INSOMNIA Last administered on 01:22; Admin Dose 50 MG; Start 07/21/16 at 18:30 Lactulose (Enulose) 10 gm Q8 PO Last administered on 07/23/16 05:37; Admin Dose 10 GM; Start 07/22/16 at 14:00 Procedures Procedures PT EVALUATION Pt is a 45 y.o. female admitted due to sudden onset of rashes/B UE and LE swelling. PMH: chronic pain, thyroidectomy, asthma, depression/anxiety. Pt agreeable to work with PT. PLOF: Per pt, was hospitalized for a coma in Mar 2016 > SNF x 2 months > currently staying with parents in a single level home with no steps in/out. Was I with bed mob, transfers, self care, ADLs. I with household mobility (uses FWW prn) and a W/C for community mobility. Father helps on "bad days" but not frequently. Also owns 3n1 commode Precautions: Fall risk CLOF: Pt A/Ox4. Pleasant and cooperative. Follows commands well. Reports 9/10 constant headache/L/S pain, also reported wrist pain at IV site. Refer to eval for details. Pt presents with generalized weakness: grossly 4-/5 with no ROM limitations. Has h/o peripheral neuropathy but light touch/pressure intact. + pitting edema L>R LE. Pt educated on safety, POC, recommendations, bed mob/log roll, transfers, gt using FWW with good return understanding. Pt req min A w/ bed mob: HOB elevated/BR used - max cues for log roll tech with fair return demo. Req assist along trunk to achieve upright sitting due to pain in wrist when pushing off. Min A with STS and Mod A with toilet transfers due to LE weakness. Gt x 30' with CGA: slow reciprocal step pattern, wide SUSHANT, antalgic w / mild instability due to neuropathy/weakness/dizziness/lightheadedness but no LOB. Pt deferred progressing gt due to pain/fatigue. Pt returned back to bed in semi landers w/ call light within reach/bed alarm activated/lines in place. Pt 's mobility limited by L/S pain, deconditioned state, generalized weakness, neuropathy, dizziness/lightheadedness, gt instability. Pt cleared to perform OOB with nursing using FWW. Pt will be seen daily x 5 for LOS or until goals met. D/C recommendations: Home with HHPT vs SNF pending pt's hospital course. Owns recommended equipment. Ct chest abd pelvis with contrast shows 1. multiple pulmonary nodular opcities abd peribronchial thickening suspicious for infection / inflammation 2. s/p thyroid surgery 3. s/p gastric bypass 4. Non specific colonic wall thickening 5. Uterine soft tissue masses concerning for fibroids TRINIDAD GOODE July 23, 2016 11:17
[2016-07-23] MEDS ORDERED: MAGNESIUM CITRATE 300 ML BTL PO ONE (12:00)
[2016-07-23 13:11] LABS: CARCINOEMBRYONIC ANTIGEN 33.4 ng/ml (0.0-5.0)
--- NOTE | 2016-07-23 17:08 | CONS ---
DATE OF ADMISSION: 07/18/2016 DATE OF CONSULTATION: 07/23/2016 TYPE OF CONSULTATION: Nephrology. REASON FOR CONSULTATION: Anasarca with acute kidney injury, hyponatremia, sodium was persistently l ow to 127. HISTORY OF PRESENT ILLNESS: This is a 45-year-old female who has a past medical history of supraven tricular tachycardia in 2011, asthma, depression, anxiety, history of previous thyroidectomy in 1996 , history of gastric bypass surgery done in 2002, history of cholecystectomy in 1996. The patient w as recently admitted to the outside hospital and had a very long rehabilitation course at the [facility] where she had a CT chest, abdomen and pelvis with an oral and IV contrast done which was negative for any acute intraabdominal finding but the patient persistent ly has weight loss and she becomes gradually cachectic. She had tumor markers checked over there wh ich shows elevated tumor markers. In the [facility], the patient had a CEA of 33, CA 19-9 is 199. CA125 is 119. Her ammonia level was also slightly elevated. The patient has acute k idney injury with her creatinine bumped up to 1.01, which is very much higher than her baseline crea tinine and her sodium dropped down to 127. Renal has been consulted for anasarca, fluid overload an d hyponatremia. REVIEW OF SYSTEMS: Positive for generalized swelling, shortness of breath, weakness, fatigue and le g edema. Other review of systems has been obtained and is negative except what is mentioned in the history of present illness. PAST MEDICAL HISTORY: As per the HPI. PAST SURGICAL HISTORY: History of a thyroidectomy, cholecystectomy and gastric bypass 2002. SOCIAL HISTORY: The patient denies any smoking, alcohol or recreational drug use. FAMILY HISTORY: Not available. PHYSICAL EXAMINATION: VITAL SIGNS: Temperature 97.7, heart rate 85, respiration 20, blood pressure 118/80, saturation is 95% on room air. GENERAL: Awake, alert, in no distress. HEENT: Normal. Oropharynx clear. NECK: Supple, no JVD, no lymphadenopathy. LUNGS: Decreased breath sounds at both lung bases. HEART: S1, S2, tachycardia, no murmur. GENERAL: Cachectic, thin built lady. HEART: S1, S2, with regular rhythm. ABDOMEN: Soft, tender to palpation diffusely with a protuberant abdomen. EXTREMITIES: 2+ pitting edema diffusely. Also has sacral and buttock edema. NEUROLOGICAL: Nonfocal, intact. PSYCHIATRIC: Appropriate affect and mood. LABORATORY DATA/DIAGNOSTIC IMAGING: Sodium 127, potassium 3.7, chloride 85, bicarbonate 35, BUN 28, creatinine 0.8, glucose 73, calcium 7.3, ammonia 32, magnesium 1.7. Urinalysis shows 1+ leukocyte esterase, positive nitrite and negative protein. WBC 4.8, hemoglobin 11.4, platelet count 181. The re is a PICC line insertion in place. Chest x-ray shows hyperexpanded clear lungs, mild elevation o f the right hemidiaphragm. Left upper extremity Doppler ultrasound negative for DVT. IMPRESSION AND PLAN: This is a 45-year-old female with: 1. Anasarca with significant lower extremity edema, rule out nephrotic syndrome. 2. Hyponatremia likely secondary to fluid overload in the setting of anasarca. 3. Possible chronic kidney disease, low proteinuric. 4. Acute kidney injury on chronic kidney disease secondary to prerenal azotemia and the fluid overl oad secondary to anasarca. 5. Cachexia, rule out malignancy. 6. History of gastric bypass surgery. 7. History of a thyroidectomy. 8. History of gallbladder removal. 9. History of depression, anxiety and asthma. 10. The patient likely has anasarca. I will order I albumin 25% at 100 mL prior to getting her di uresis with Lasix. 11. Heparin for DVT prophylaxis. 12. The patient currently seen in the med/surg floor. She had a previous CT abdomen and pelvis don e. 13. The patient previously had a CT chest, abdomen and pelvis with oral and IV contrast done at the [facility] which has been unremarkable, but she has a persistently e levated tumor marker including a CEA, CA 19-9 and CA125. She will likely need a GI consultation for workup of this Cachexia to rule out any malignancy. 14. Continue the current diuresis with Lasix 40 mg IV daily along with IV albumin. 15. Ultrasound of the pelvis has been done. Report is pending at this time. We will continue to f ollow this patient along with the primary service. 16. The patient currently seen in the med/surg floor and she will be followed up along with the [facility] pitalist service. Thank you, Dr. Srinivasan, for this consultation. Dictated By: BECCA CALDERÓN MD, KP/PAUL Conf#: [id number] DID#: [id number]
--- NOTE | 2016-07-23 17:12 | RADRPT ---
PROCEDURE: US Pelvis. CLINICAL INDICATION: Pelvic pain. TECHNIQUE: The pelvis was evaluated with transabdominal and transvaginal sonography in the axial a nd sagittal planes. COMPARISON: No prior study is available for comparison. FINDINGS: The uterus measures 5.7 x 3.0 x 3.4 cm. There is no uterine enlargement or mass. The endometrium i s not well seen. The ovaries are not visualized. There is a small amount of free fluid. A Bojorquez c atheter is present in the bladder. There is no pelvic mass visualized. IMPRESSION: 1. Normal appearance of the uterus. 2. Endometrium and ovaries not visualized. 3. Small amount of free fluid, likely physiologic. 4. Bojorquez catheter in the bladder. RPTAT: QQ .Abebe Goel MD, Date Time Electronically viewed and signed by .Abebe Goel MD, on 07/23/2016 17:12 .R/
[2016-07-23 18:08] LABS: IRON 43 ug/dl (35-150)
[2016-07-23 18:17] LABS: TOTAL IRON BINDING CAPACITY 166 ug/dl (241-421)
[2016-07-23 19:15] LABS: FOLATE 12.1 ng/ml (2.8-20.0)
[2016-07-23 20:09] VITALS: BP 110/75; RESP 20
[2016-07-23] MEDS ORDERED: ALBUMIN HUMAN 25% 100 ML IV SCH (21:00)
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
[2016-07-23] MEDS: MONTELUKAST 10 MG TAB PO SCH (22:00)
[2016-07-23] MEDS: MAGNESIUM HYDROXIDE 30ML CUP PO PRN (22:04)
[2016-07-24] MEDS: oxyCODONE 5 MG TAB PO PRN ×4 (01:16→17:47)
[2016-07-24] MEDS: LACTULOSE 30ML CUP PO SCH ×3 (05:11→21:40)
[2016-07-24] MEDS: METHYLPREDNISOLONE 40 MG INJ IV SCH ×3 (05:11→21:40)
[2016-07-24] MEDS: LEVOTHYROXINE 175 MCG TAB PO SCH (05:11)
[2016-07-24] MEDS: PANTOPRAZOLE (EC) 40 MG TAB PO SCH (05:13)
[2016-07-24] MEDS: IMIPENEM-CILAST 500MG IV (PMX) 100 ML IVPB SCH ×3 (05:31→21:40)
[2016-07-24 07:39] VITALS: BP 107/66; RESP 20
[2016-07-24 08:39] LABS: ADD SCAN DIFF NO
[2016-07-24 08:49] LABS: HEMATOCRIT 32.3 % (37.0-47.0); HEMOGLOBIN 10.7 g/dl (12.0-16.0); LYMPHOCYTES # 0.9 10^3/ul (0.8-2.9); LYMPHOCYTES % 20.2 % (15.0-51.0); MEAN CORPUSCULAR HGB CONC 33.1 g/dl (32.0-37.0); MEAN CORPUSCULAR VOLUME 90.5 fl (82.0-101.0); MEAN PLATELET VOLUME 9.8 fl (7.4-10.4); MONOCYTE # 0.2 10^3/ul (0.3-0.9); NEUTROPHIL # 3.4 10^3/ul (1.6-7.5); NEUTROPHILS % 75.4 % (39.0-77.0); PLATELET COUNT 178 10^3/UL (140-415); RED BLOOD COUNT 3.57 10^6/ul (4.20-5.40); RED CELL DISTRIBUTION WIDTH 14.4 % (11.5-14.5); WHITE BLOOD COUNT 4.5 10^3/ul (4.8-10.8)
[2016-07-24 08:59] LABS: CALCIUM 7.4 mg/dl (8.4-10.2); CREATININE 0.68 mg/dl (0.44-1.00); POTASSIUM 3.7 mmol/L (3.5-5.1)
[2016-07-24] MEDS: oxyCODONE (CR) 10 MG TAB [oxyCONTIN] PO SCH ×2 (08:59→21:39)
[2016-07-24] MEDS ORDERED: FUROSEMIDE 40 MG INJ IV SCH (09:00)
[2016-07-24] MEDS: HEPARIN 5,000 UNIT/0.5 ML VIAL SC SCH ×4 (09:00→21:39)
[2016-07-24] MEDS: THIAMINE 100 MG TAB PO SCH (09:40)
[2016-07-24] MEDS: GABAPENTIN 100 MG CAP PO SCH ×2 (09:40→21:39)
[2016-07-24] MEDS: VENLAFAXINE 75 MG TABLET PO SCH (09:40)
[2016-07-24] MEDS: ASCORBIC ACID 500 MG TAB PO SCH (09:40)
[2016-07-24] MEDS: ZINC SULFATE 220 MG CAP PO SCH (09:41)
[2016-07-24] MEDS: TRIAMCINOLONE ACETONIDE 0.1% TOP SCH ×2 (09:42→21:41)
[2016-07-24] MEDS: ALBUMIN HUMAN 25% 100 ML IV SCH (11:14)
[2016-07-24] MEDS ORDERED: SOD CHLORIDE 0.45% 1,000 ML IV SCH (11:30)
--- NOTE | 2016-07-24 13:35 | PN ---
Date/Time of Note Date/Time of Note DATE: 07/24/16 TIME: 13:32 Assessment/Plan VTE Prophylaxis VTE Prophylaxis Intervention: other (per primary) Lines/Catheters IV Catheter Type (from Nrs): PICC Line Central line still needed: Yes Urinary Cath still in place: Yes Reason Cath still needed: other (indicate) (debility) Assessment/Plan Assessment/Plan No site for tumor so far. These may be false positive results. HE4 pending but US of pelvis is not suggestive of ovarian tumor. We will f/u tomorrow. Subjective 24 Hr Interval Summary Free Text/Dictation Pt alert and comfortable. Exam/Review of Systems Vital Signs Vitals Vital Signs Date Time Temp Pulse Resp B/P Pulse Ox O2 Delivery O2 Flow Rate FiO2 07/24/16 07:39 97.8 83 20 107/66 96 Intake and Output 07/23/16 07/23/16 07/24/16 15:00 23:00 07:00 Intake Total 980 ml 800 ml Output Total 1000 ml 700 ml Balance -20 ml 100 ml Exam Constitutional: alert, oriented Respiratory: clear to auscultation Cardiovascular: regular rate and rhythm Gastrointestinal: soft Results Result Diagram: 07/24/16 0728 07/24/1628 Results 24 hrs Laboratory Tests Test 07/23/16 14:25 07/24/16 07:28 Iron Level 43 Total Iron Binding Capacity 166 L Percent Iron Saturation 26 Ferritin 105.0 Alpha Fetoprotein 3.06 Vitamin B12 Level 781 Folate 12.1 White Blood Count 4.5 L Red Blood Count 3.57 L Hemoglobin 10.7 L Hematocrit 32.3 L Mean Corpuscular Volume 90.5 Mean Corpuscular Hemoglobin 30.0 Mean Corpuscular Hemoglobin Concent 33.1 Red Cell Distribution Width 14.4 Platelet Count 178 Mean Platelet Volume 9.8 Neutrophils % 75.4 Lymphocytes % 20.2 Monocytes % 4.0 Eosinophils % 0.0 Basophils % 0.0 Nucleated Red Blood Cells % 0.0 Neutrophils # 3.4 Lymphocytes # 0.9 Monocytes # 0.2 L Eosinophils # 0.0 Basophils # 0.0 Nucleated Red Blood Cells # 0.0 Sodium Level 127 L Potassium Level 3.7 Chloride Level 88 L Carbon Dioxide Level 36 H Anion Gap 7 L Blood Urea Nitrogen 21 H Creatinine 0.68 Glucose Level 222 #H Calcium Level 7.4 L Medications Medications Current Medications Ondansetron HCl (Zofran Inj) 4 mg Q6H PRN IV NAUSEA AND/OR VOMITING Last administered on 07/22/16 15:15; Admin Dose 4 MG; Start 07/18/16 at 20:00 Acetaminophen (Tylenol Tab) 650 mg Q6H PRN PO PAIN LEVEL 1-3 OR FEVER Last administered on 07/23/16 05:39; Admin Dose 650 MG; Start 07/18/16 at 20:00 Docusate Sodium (Colace) 100 mg Q12H PRN PO CONSTIPATION Last administered on 21:58; Admin Dose 100 MG; Start 07/18/16 at 20:00 Magnesium Hydroxide (Milk Of Mag) 30 ml DAILY PRN PO CONSTIPATION Last administered on 07/23/16 22:04; Admin Dose 30 ML; Start 07/18/16 at 20:00 Sodium Biphosphate/ Sodium Phosphate (Fleet Enema) 133 ml DAILY PRN NC CONSTIPATION; Start 07/18/16 at 20:00 Pantoprazole (Protonix Tab) 40 mg DAILY@06 PO Last administered on 07/24/16 05: 13; Admin Dose 40 MG; Start 07/19/16 at 06:00 Heparin Sodium (Porcine) (Heparin (5000 Units/0.5 ml)) 5,000 unit Q12 SC Last administered on 07/23/16 21:58; Admin Dose 5,000 UNIT; Start 07/18/16 at 21:00 Hydralazine HCl (Apresoline) 10 mg Q6H PRN IV ELEVATED BLOOD PRESSURE; Start at 20:00 Nitroglycerin (Nitroglycerin (Sl Tab) 0.4 Mg) 1 tab Q5M PRN SL ANGINA; Start at 20:00 Ascorbic Acid (Vitamin C) 500 mg DAILY PO Last administered on 07/24/16 09:40; Admin Dose 500 MG; Start 07/19/16 at 09:00 Levothyroxine Sodium (Synthroid) 175 mcg DAILY@06 PO Last administered on 05:11; Admin Dose 175 MCG; Start 07/19/16 at 06:00 Montelukast Sodium (Singulair) 10 mg HS PO Last administered on 07/23/16 22:00 ; Admin Dose 10 MG; Start 07/18/16 at 21:00 Thiamine HCl (Vitamin B1) 100 mg DAILY PO Last administered on 07/24/16 09:40; Admin Dose 100 MG; Start 07/19/16 at 09:00 Triamcinolone Acetonide (Kenalog 0.1% Cr) 1 applic BID TOP Last administered on 07/20/16 13:00; Admin Dose 1 APPLIC; Start 07/18/16 at 21:00; Status Future Hold Venlafaxine HCl (Effexor) 150 mg DAILY PO Last administered on 07/24/16 09:40; Admin Dose 150 MG; Start 07/19/16 at 09:00 Zinc Sulfate (Zinc Sulfate) 220 mg DAILY PO Last administered on 07/24/16 09:41 ; Admin Dose 220 MG; Start 07/19/16 at 09:00 Diphenhydramine HCl (Benadryl) 25 mg Q6H PRN PO ITCHING; Start 07/19/16 at 15: 00 Gabapentin 100 mg 100 mg BID PO Last administered on 07/24/16 09:40; Admin Dose 100 MG; Start 07/20/16 at 09:00 Imipenem/ Cilastatin Sodium (Primaxin 500 Mg/ 100 ml (Pmx)) 100 ml @ 100 mls/ hr Q8 IVPB Last administered on 07/24/16 05:31; Admin Dose 100 MLS/HR; Start at 12:00 Non-Formulary Medication . BID TOP Last administered on 07/24/16 09:42; Admin Dose 1 EA; Start 07/20/16 at 21:00 Oxycodone HCl (Oxycontin) 30 mg BID PO Last administered on 07/24/16 08:59; Admin Dose 30 MG; Start 07/20/16 at 21:00 Methylprednisolone Sodium Succinate (Solu-Medrol) 40 mg Q8 IV Last administered on 07/24/16 13:26; Admin Dose 40 MG; Start 07/20/16 at 14:30 Oxycodone HCl (Roxicodone) 15 mg Q6H PRN PO PAIN LEVEL 4-6 Last administered on 07/24/16 11:14; Admin Dose 15 MG; Start 07/20/16 at 15:00 IV Flush (NS 10 ml) 10 ml PRN PRN IV IV PROTOCOL; Start 07/20/16 at 21:30 Diphenhydramine HCl (Benadryl) 50 mg QHS PRN IV INSOMNIA Last administered on 01:22; Admin Dose 50 MG; Start 07/21/16 at 18:30 Lactulose 20 gm 20 gm Q8 PO Last administered on 07/24/16 13:26; Admin Dose 20 GM; Start 07/23/16 at 14:00 Albumin Human 100 ml @ 100 mls/hr DAILY IV Last administered on 07/24/16 11:14 ; Admin Dose 100 MLS/HR; Start 07/24/16 at 09:00 Sodium Chloride (1/2 NS) 1,000 ml @ 60 mls/hr [id number] IV Last administered on 07/24/16 13:26; Admin Dose 60 MLS/HR; Start 07/24/16 at 11:30; Stop 07/25/16 at 04 :09 Furosemide (Lasix) 20 mg DAILY IV ; Start 07/25/16 at 09:00 ALEXA LYNN MD July 24, 2016 13:35
--- NOTE | 2016-07-24 15:16 | PN ---
Date/Time of Note Date/Time of Note DATE: 07/24/16 TIME: 15:13 Assessment/Plan VTE Prophylaxis VTE Prophylaxis Intervention: heparin Lines/Catheters IV Catheter Type (from Nrsg): PICC Line Central line still needed: Yes Urinary Cath still in place: Yes Reason Cath still needed: other (indicate) Assessment/Plan Assessment/Plan 45-year-old female coming in with lower extremity swelling, skin rash and weakness. 1. Weakness and lower extremity swelling: resolved 2. Rash : ?Vasculitis- improved 3. Opioid dependency - appreciate pain/palliative consult - pain meds per their rec's 4. S/p gastric bypass. Continue proton pump inhibitor. 5. Chronic depression. : stable 6. Alcoholic liver disease with lower extremity swelling. 7. ESBL UTI 8. Weight loss + elevated CA 19-9, CA 125. and CEA 9. Colonic ulcerations on last colonoscopy with possible IBD on path 10. Episodes of confusion with elevated ammonia 11. Hyponatremia: 2/2 fluid overload 12. Constipation, ?OIC 13. Noncompliance Plan: * Confusion is l;ikely opioid associated, patient is resistant to adjusting pain meds at this time, will defer to pain mgt * GI consult for IBD mgt * Continue lactulose * Continue abx for UTI * Continue steroids for rash * Continue all meds and supportive care * Gastrointestinal prophylaxis, proton pump inhibitor. * Deep venous thrombosis prophylaxis, heparin. * Case mgt to wok on placment if indicated by PT, patient should be ready for d/ c by tomorrow Subjective 24 Hr Interval Summary Free Text/Dictation * mild episode of confusion overnight Exam/Review of Systems Vital Signs Vitals Vital Signs Date Time Temp Pulse Resp B/P Pulse Ox O2 Delivery O2 Flow Rate FiO2 07/24/16 07:39 97.8 83 20 107/66 96 Intake and Output 07/23/16 07/23/16 07/24/16 15:00 23:00 07:00 Intake Total 980 ml 800 ml Output Total 1000 ml 700 ml Balance -20 ml 100 ml Exam Constitutional: alert, frail, oriented, No distress Psych: nl mood/affect Head: atraumatic, normocephalic Eyes: PERRL, No icteric ENMT: mucosa pink and moist Neck: supple Respiratory: clear to auscultation, diminished breath sounds Cardiovascular: regular rate and rhythm, No murmurs/extra sounds Gastrointestinal: bowel sounds, distended (mildly), soft Extremities: No edema Neurological: nl mental status, nl speech Skin: No rash or lesions Results Result Diagram: 07/24/1672707/24/16 0728 Results 24 hrs Laboratory Tests Test 07/24/16 07:28 White Blood Count 4.5 L Red Blood Count 3.57 L Hemoglobin 10.7 L Hematocrit 32.3 L Mean Corpuscular Volume 90.5 Mean Corpuscular Hemoglobin 30.0 Mean Corpuscular Hemoglobin Concent 33.1 Red Cell Distribution Width 14.4 Platelet Count 178 Mean Platelet Volume 9.8 Neutrophils % 75.4 Lymphocytes % 20.2 Monocytes % 4.0 Eosinophils % 0.0 Basophils % 0.0 Nucleated Red Blood Cells % 0.0 Neutrophils # 3.4 Lymphocytes # 0.9 Monocytes # 0.2 L Eosinophils # 0.0 Basophils # 0.0 Nucleated Red Blood Cells # 0.0 Sodium Level 127 L Potassium Level 3.7 Chloride Level 88 L Carbon Dioxide Level 36 H Anion Gap 7 L Blood Urea Nitrogen 21 H Creatinine 0.68 Glucose Level 222 #H Calcium Level 7.4 L Medications Medications Current Medications Ondansetron HCl (Zofran Inj) 4 mg Q6H PRN IV NAUSEA AND/OR VOMITING Last administered on 07/22/16 15:15; Admin Dose 4 MG; Start 07/18/16 at 20:00 Acetaminophen (Tylenol Tab) 650 mg Q6H PRN PO PAIN LEVEL 1-3 OR FEVER Last administered on 07/23/16 05:39; Admin Dose 650 MG; Start 07/18/16 at 20:00 Docusate Sodium (Colace) 100 mg Q12H PRN PO CONSTIPATION Last administered on 21:58; Admin Dose 100 MG; Start 07/18/16 at 20:00 Magnesium Hydroxide (Milk Of Mag) 30 ml DAILY PRN PO CONSTIPATION Last administered on 07/23/16 22:04; Admin Dose 30 ML; Start 07/18/16 at 20:00 Sodium Biphosphate/ Sodium Phosphate (Fleet Enema) 133 ml DAILY PRN [place] CONSTIPATION; Start 07/18/16 at 20:00 Pantoprazole (Protonix Tab) 40 mg DAILY@06 PO Last administered on 07/24/16 05: 13; Admin Dose 40 MG; Start 07/19/16 at 06:00 Heparin Sodium (Porcine) (Heparin (5000 Units/0.5 ml)) 5,000 unit Q12 SC Last administered on 07/23/16 21:58; Admin Dose 5,000 UNIT; Start 07/18/16 at 21:00 Hydralazine HCl (Apresoline) 10 mg Q6H PRN IV ELEVATED BLOOD PRESSURE; Start at 20:00 Nitroglycerin (Nitroglycerin (Sl Tab) 0.4 Mg) 1 tab Q5M PRN SL ANGINA; Start at 20:00 Ascorbic Acid (Vitamin C) 500 mg DAILY PO Last administered on 07/24/16 09:40; Admin Dose 500 MG; Start 07/19/16 at 09:00 Levothyroxine Sodium (Synthroid) 175 mcg DAILY@06 PO Last administered on 05:11; Admin Dose 175 MCG; Start 07/19/16 at 06:00 Montelukast Sodium (Singulair) 10 mg HS PO Last administered on 07/23/16 22:00 ; Admin Dose 10 MG; Start 07/18/16 at 21:00 Thiamine HCl (Vitamin B1) 100 mg DAILY PO Last administered on 07/24/16 09:40; Admin Dose 100 MG; Start 07/19/16 at 09:00 Triamcinolone Acetonide (Kenalog 0.1% Cr) 1 applic BID TOP Last administered on 07/20/16 13:00; Admin Dose 1 APPLIC; Start 07/18/16 at 21:00; Status Future Hold Venlafaxine HCl (Effexor) 150 mg DAILY PO Last administered on 07/24/16 09:40; Admin Dose 150 MG; Start 07/19/16 at 09:00 Zinc Sulfate (Zinc Sulfate) 220 mg DAILY PO Last administered on 07/24/16 09:41 ; Admin Dose 220 MG; Start 07/19/16 at 09:00 Diphenhydramine HCl (Benadryl) 25 mg Q6H PRN PO ITCHING; Start 07/19/16 at 15: 00 Gabapentin 100 mg 100 mg BID PO Last administered on 07/24/16 09:40; Admin Dose 100 MG; Start 07/20/16 at 09:00 Imipenem/ Cilastatin Sodium (Primaxin 500 Mg/ 100 ml (Pmx)) 100 ml @ 100 mls/ hr Q8 IVPB Last administered on 07/24/16 14:56; Admin Dose 100 MLS/HR; Start at 12:00 Non-Formulary Medication . BID TOP Last administered on 07/24/16 09:42; Admin Dose 1 EA; Start 07/20/16 at 21:00 Oxycodone HCl (Oxycontin) 30 mg BID PO Last administered on 07/24/16 08:59; Admin Dose 30 MG; Start 07/20/16 at 21:00 Methylprednisolone Sodium Succinate (Solu-Medrol) 40 mg Q8 IV Last administered on 07/24/16 13:26; Admin Dose 40 MG; Start 07/20/16 at 14:30 Oxycodone HCl (Roxicodone) 15 mg Q6H PRN PO PAIN LEVEL 4-6 Last administered on 07/24/16 11:14; Admin Dose 15 MG; Start 07/20/16 at 15:00 IV Flush (NS 10 ml) 10 ml PRN PRN IV IV PROTOCOL; Start 07/20/16 at 21:30 Diphenhydramine HCl (Benadryl) 50 mg QHS PRN IV INSOMNIA Last administered on 01:22; Admin Dose 50 MG; Start 07/21/16 at 18:30 Lactulose 20 gm 20 gm Q8 PO Last administered on 07/24/16 13:26; Admin Dose 20 GM; Start 07/23/16 at 14:00 Albumin Human 100 ml @ 100 mls/hr DAILY IV Last administered on 07/24/16 11:14 ; Admin Dose 100 MLS/HR; Start 07/24/16 at 09:00 Sodium Chloride (1/2 NS) 1,000 ml @ 60 mls/hr [id number] IV Last administered on 07/24/16 13:26; Admin Dose 60 MLS/HR; Start 07/24/16 at 11:30; Stop 07/25/16 at 04 :09 Furosemide (Lasix) 20 mg DAILY IV ; Start 07/25/16 at 09:00 Procedures Procedures PROCEDURE: US Pelvis. CLINICAL INDICATION: Pelvic pain. TECHNIQUE: The pelvis was evaluated with transabdominal and transvaginal sonography in the axial and sagittal planes. COMPARISON: No prior study is available for comparison. FINDINGS: The uterus measures 5.7 x 3.0 x 3.4 cm. There is no uterine enlargement or mass. The endometrium is not well seen. The ovaries are not visualized. There is a small amount of free fluid. A Bojorquez catheter is present in the bladder. There is no pelvic mass visualized. IMPRESSION: 1. Normal appearance of the uterus. 2. Endometrium and ovaries not visualized. 3. Small amount of free fluid, likely physiologic. 4. Bojorquez catheter in the bladder. RPTAT: QQ .Abebe Goel MD, MD Date Time Electronically viewed and signed by .Abebe Goel MD, on 07/23/2016 17:12 .R/ CC: TRINIDAD GOODE BOLATITO M. July 24, 2016 15:16
--- NOTE | 2016-07-24 16:03 | CONS ---
DATE OF ADMISSION: 07/18/2016 DATE OF CONSULTATION: 07/24/2016 PAIN MANAGEMENT CONSULTATION REFERRING PHYSICIAN: Dr. Rogerio Montanez. REASON FOR REFERRAL: The patient has total body pain by history. HISTORY OF PRESENT ILLNESS: This is a 45-year-old female who has a history of cirrhosis and chronic pain syndrome who is being seen by a pain management physician outside the hospital for a history o f upper back pain, bilateral shoulder discomfort of unclear etiology. She states she is having pain all the time in her bilateral shoulders and back, exacerbated by minimal movement associated with i t. Denies systemic symptoms, nausea, vomiting, fevers, chills, cough, shortness of breath and state s this a lancinating radiating pain, but only located in bilateral shoulders and upper neck. There is no radiation into her lower spine and/or flanks or anterior chest wall or in her head. She state s that as an outpatient, she has been taking a combination of Neurontin, OxyContin and oxycodone fo r pain management. With those medications, states she gets significant relief of her discomfort. F rom her history, she has not asked for higher doses of pain control medications in a long time, seem s to be controlled on those dosages of 100 mg b.i.d. of oxycodone. The patient is nonalcoholic or s ubstance abuser. She has rated her pain as 5/10, alleviated with her current pain control medicatio ns and p.r.n. pain control medications. She rates it as a 10/10 when it is exacerbated severely. Current medications are enough, according to the patient, to control her pain and clinically on exam ination she appears to be comfortable. Physical functioning is acceptable, according to the patien t. Family or social relationships are not significant for this consultation. Her mood seems to be p ositive. Sleep patterns are good. Overall function is good prior to this hospitalization. She has no other symptoms of itching, mental cloudiness or sweating. She was admitted for generalized fat igue, presumably secondary to complications and end-stage liver disease. Severity of her pain is co nsidered moderate to severe. MEDICATIONS: Please refer to reconciliation sheet. ALLERGIES: 1. PENICILLIN. 2. SULFA DRUGS. 3. CEFACLOR. 4. PEN-VEE K. 5. PROCHLORPERAZINE. SOCIAL HISTORY: The patient lives with friends. She is not . She has never been . She has no children. She has no brothers or sisters or parents alive. Former alcohol user, nonsmo ker. REVIEW OF SYSTEMS: Entirely per history of present illness. PHYSICAL EXAMINATION: GENERAL: Shows an ashen-appearing female who is in no major acute distress. HEENT: She is normocephalic and atraumatic. Anicteric, acyanotic on examination. CHEST: Distant breath sounds throughout both lung carmona. COR: S1, S2, without S3, S4, murmur, gallop, rub. Normal rate, normal rhythm. ABDOMEN: Grossly benign and nontender, without organomegaly, masses, tenderness, rebound or periton eal signs. EXTREMITIES: Grossly without clubbing, cyanosis or edema. LABORATORY TESTS: White blood cell count of 4.5, hemoglobin is 10.7, hematocrit 32.3, MCV of 90.5, platelet count 178,000. Chemistries: Serum sodium 127, potassium 3.7, chloride ____, bicarbonate 3 6, BUN of ____, creatinine 0.68, blood sugar 222. ASSESSMENT AND PLAN: This is a 45-year-old female who unfortunately has end-stage liver disease, pr esumed to be secondary to excessive alcohol consumption who has been clean and dry for many, many ye ars prior to this hospitalization, but still suffers the consequences of end-stage liver disease. S he has a plain management history. Please refer to the above. She is being seen by a pain managem ent physician is now treatment outpatient. She does not seem to be drug seeking under any circumsta nces. The amount of OxyContin that is listed in her admission medications are wrong, and in fact, s he states she takes lesser amounts of OxyContin, 30 mg b.i.d., which I will represcribe. There is n o indication to change her medications and she is well controlled. I will lower the dose of p.r.n. medications of oxycodone to 15 mg q. 6 hours as compared to 30 mg q. 6 hours. She is in agreement w ith the treatment plan. My only concern is that the conflicting data on the use of oxycodone with e nd-stage liver disease. Pain control medications at that time are absolutely contraindicated includ e morphine, Vicodin and [place] , those medications. Oxycodone is still unclear. Dilaudid seems to b e safe, but still not necessarily agreed upon by all clinicians. Fentanyl is safe as well as morph ine, but I believe this lady is high risk of complications associated with long-acting opioids excep t the ones she is currently taking, which she seems to have tolerated very well. I will restart tho se and patient should be referred back to her pain management doctor in the community. I suggest no t writing any pain control medications at discharge. Dictated By: MARIA LUZ MARIE MD LP/NTS Conf#: [id number] DID#: [id number]
[2016-07-24] MEDS ORDERED: BISACODYL (EC) 5 MG TAB PO ONE (17:00)
[2016-07-24] MEDS ORDERED: MAGNESIUM CITRATE 300 ML BTL PO ONE (17:30)
[2016-07-24] MEDS ORDERED: POLYETHYLENE GLYCOL 3350 119 GM POWDER PO ONE (18:30)
--- NOTE | 2016-07-24 19:01 | CONS ---
Date/Time of Note Date/Time of Note DATE: 07/24/16 TIME: 18:30 Assessment/Plan Assessment/Plan Additional Assessment/Plan Assessment * Abdominal pain/Constipation * Chronic pain syndrome * Alcoholic Liver disease * Hx of gastric bypass * Hx of colonic ulcers * Elevated CEA,19-9,125 * UTI resolving Plan * continue present management * colonoscopy risk and benefits ex[plained to patient and agreed with planned [ procedure Consultation Date/Type/Reason Admit Date/Time Jul 18, 2016 at 18:02 Date of Consultation: July 24, 2016 Type of Consultation: Gastroenterology Reason for Consultation IBD Referring Provider: TRINIDAD GOODE Hx of Present Illness 45 year old female with past medical history of chronic pain syndrome, hypothyroidism,s/p gastric bypass,opiod dependence ,GERD,alcoholic liver cirrhosis,hx of colonoscopy deep segmental areas of ulceration in the hepatic flexure,ileocecal valve and cecum who was admitted with chief complaint significant swelling of arms and legs.Patient stayed in the [facility] still complaining on and off abdominal pain with constipation denies any diarrhea, hematochezia,nausea ,vomiting and afebrile .Present hemoglobin 11.4 anemia,WBC 4.5,CEA 33.4 Ca 19-9 199, Ca 125 119.Pelvic ultrasound is unremarkable. Psychological: nl mood/affect Past Surgical History Past Surgical Hx: other Social History Smoking Status: Never smoker Exam/Review of Systems Vital Signs Vitals Vital Signs Date Time Temp Pulse Resp B/P Pulse Ox O2 Delivery O2 Flow Rate FiO2 07/24/16 07:39 97.8 83 20 107/66 96 Intake and Output 07/23/16 07/23/16 07/24/16 15:00 23:00 07:00 Intake Total 980 ml 800 ml Output Total 1000 ml 700 ml Balance -20 ml 100 ml Results Result Diagram: 07/24/16 0728 07/24/16 0728 Results 24 hrs Laboratory Tests Test 07/24/16 07:28 White Blood Count 4.5 L Red Blood Count 3.57 L Hemoglobin 10.7 L Hematocrit 32.3 L Mean Corpuscular Volume 90.5 Mean Corpuscular Hemoglobin 30.0 Mean Corpuscular Hemoglobin Concent 33.1 Red Cell Distribution Width 14.4 Platelet Count 178 Mean Platelet Volume 9.8 Neutrophils % 75.4 Lymphocytes % 20.2 Monocytes % 4.0 Eosinophils % 0.0 Basophils % 0.0 Nucleated Red Blood Cells % 0.0 Neutrophils # 3.4 Lymphocytes # 0.9 Monocytes # 0.2 L Eosinophils # 0.0 Basophils # 0.0 Nucleated Red Blood Cells # 0.0 Sodium Level 127 L Potassium Level 3.7 Chloride Level 88 L Carbon Dioxide Level 36 H Anion Gap 7 L Blood Urea Nitrogen 21 H Creatinine 0.68 Glucose Level 222 #H Calcium Level 7.4 L Medications Medications Current Medications Ondansetron HCl (Zofran Inj) 4 mg Q6H PRN IV NAUSEA AND/OR VOMITING Last administered on 07/22/16 15:15; Admin Dose 4 MG; Start 07/18/16 at 20:00 Acetaminophen (Tylenol Tab) 650 mg Q6H PRN PO PAIN LEVEL 1-3 OR FEVER Last administered on 07/23/16 05:39; Admin Dose 650 MG; Start 07/18/16 at 20:00 Docusate Sodium (Colace) 100 mg Q12H PRN PO CONSTIPATION Last administered on 21:58; Admin Dose 100 MG; Start 07/18/16 at 20:00 Magnesium Hydroxide (Milk Of Mag) 30 ml DAILY PRN PO CONSTIPATION Last administered on 07/23/16 22:04; Admin Dose 30 ML; Start 07/18/16 at 20:00 Sodium Biphosphate/ Sodium Phosphate (Fleet Enema) 133 ml DAILY PRN [place] CONSTIPATION; Start 07/18/16 at 20:00 Pantoprazole (Protonix Tab) 40 mg DAILY@06 PO Last administered on 07/24/16 05: 13; Admin Dose 40 MG; Start 07/19/16 at 06:00 Heparin Sodium (Porcine) (Heparin (5000 Units/0.5 ml)) 5,000 unit Q12 SC Last administered on 07/23/16 21:58; Admin Dose 5,000 UNIT; Start 07/18/16 at 21:00 Hydralazine HCl (Apresoline) 10 mg Q6H PRN IV ELEVATED BLOOD PRESSURE; Start at 20:00 Nitroglycerin (Nitroglycerin (Sl Tab) 0.4 Mg) 1 tab Q5M PRN SL ANGINA; Start at 20:00 Ascorbic Acid (Vitamin C) 500 mg DAILY PO Last administered on 07/24/16 09:40; Admin Dose 500 MG; Start 07/19/16 at 09:00 Levothyroxine Sodium (Synthroid) 175 mcg DAILY@06 PO Last administered on 05:11; Admin Dose 175 MCG; Start 07/19/16 at 06:00 Montelukast Sodium (Singulair) 10 mg HS PO Last administered on 07/23/16 22:00 ; Admin Dose 10 MG; Start 07/18/16 at 21:00 Thiamine HCl (Vitamin B1) 100 mg DAILY PO Last administered on 07/24/16 09:40; Admin Dose 100 MG; Start 07/19/16 at 09:00 Triamcinolone Acetonide (Kenalog 0.1% Cr) 1 applic BID TOP Last administered on 07/20/16 13:00; Admin Dose 1 APPLIC; Start 07/18/16 at 21:00; Status Future Hold Venlafaxine HCl (Effexor) 150 mg DAILY PO Last administered on 07/24/16 09:40; Admin Dose 150 MG; Start 07/19/16 at 09:00 Zinc Sulfate (Zinc Sulfate) 220 mg DAILY PO Last administered on 07/24/16 09:41 ; Admin Dose 220 MG; Start 07/19/16 at 09:00 Diphenhydramine HCl (Benadryl) 25 mg Q6H PRN PO ITCHING; Start 07/19/16 at 15: 00 Gabapentin 100 mg 100 mg BID PO Last administered on 07/24/16 09:40; Admin Dose 100 MG; Start 07/20/16 at 09:00 Imipenem/ Cilastatin Sodium (Primaxin 500 Mg/ 100 ml (Pmx)) 100 ml @ 100 mls/ hr Q8 IVPB Last administered on 07/24/16 14:56; Admin Dose 100 MLS/HR; Start at 12:00 Non-Formulary Medication . BID TOP Last administered on 07/24/16 09:42; Admin Dose 1 EA; Start 07/20/16 at 21:00 Oxycodone HCl (Oxycontin) 30 mg BID PO Last administered on 07/24/16 08:59; Admin Dose 30 MG; Start 07/20/16 at 21:00 Methylprednisolone Sodium Succinate (Solu-Medrol) 40 mg Q8 IV Last administered on 07/24/16 13:26; Admin Dose 40 MG; Start 07/20/16 at 14:30 Oxycodone HCl (Roxicodone) 15 mg Q6H PRN PO PAIN LEVEL 4-6 Last administered on 07/24/16 17:47; Admin Dose 15 MG; Start 07/20/16 at 15:00 IV Flush (NS 10 ml) 10 ml PRN PRN IV IV PROTOCOL; Start 07/20/16 at 21:30 Diphenhydramine HCl (Benadryl) 50 mg QHS PRN IV INSOMNIA Last administered on 01:22; Admin Dose 50 MG; Start 07/21/16 at 18:30 Lactulose 20 gm 20 gm Q8 PO Last administered on 07/24/16 13:26; Admin Dose 20 GM; Start 07/23/16 at 14:00 Albumin Human 100 ml @ 100 mls/hr DAILY IV Last administered on 07/24/16 11:14 ; Admin Dose 100 MLS/HR; Start 07/24/16 at 09:00 Sodium Chloride (1/2 NS) 1,000 ml @ 60 mls/hr [id number] IV Last administered on 07/24/16 13:26; Admin Dose 60 MLS/HR; Start 07/24/16 at 11:30; Stop 07/25/16 at 04 :09 Furosemide (Lasix) 20 mg DAILY IV ; Start 07/25/16 at 09:00 Polyethylene Glycol (Miralax) 119 gm ONCE ONCE PO ; Start 07/24/16 at 18:30; Stop 07/24/16 at 18:31 THUY VILLELA MD July 24, 2016 18:40
--- NOTE | 2016-07-24 19:03 | CONS ---
Date/Time of Note Date/Time of Note DATE: 07/24/16 TIME: 19:01 Assessment/Plan Assessment/Plan Additional Assessment/Plan 1. Anasarca with significant lower extremity edema, rule out nephrotic syndrome. 2. Hyponatremia likely secondary to fluid overload in the setting of anasarca. 3. Possible chronic kidney disease, low proteinuric. 4. Acute kidney injury on chronic kidney disease secondary to prerenal azotemia and the fluid overload secondary to anasarca. 5. Cachexia, rule out malignancy. 6. History of gastric bypass surgery. 7. History of a thyroidectomy. 8. History of gallbladder removal. 9. History of depression, anxiety and asthma. plan: IV lasix with IV albumin Pelvis US normal BP stable Cr stable but Na still low change lasix to 20mg IV daily [place] gray Consultation Date/Type/Reason Admit Date/Time Jul 18, 2016 at 18:02 Initial Consult Date Type of Consultation: Gastroenterology Referring Provider: TRINIDAD GOODE Exam/Review of Systems Vital Signs Vitals Vital Signs Date Time Temp Pulse Resp B/P Pulse Ox O2 Delivery O2 Flow Rate FiO2 07/24/16 07:39 97.8 83 20 107/66 96 Intake and Output 07/23/16 07/23/16 07/24/16 15:00 23:00 07:00 Intake Total 980 ml 800 ml Output Total 1000 ml 700 ml Balance -20 ml 100 ml Exam GENERAL: Awake, alert, in no distress. HEENT: Normal. Oropharynx clear. NECK: Supple, no JVD, no lymphadenopathy. LUNGS: Decreased breath sounds at both lung bases. HEART: S1, S2, tachycardia, no murmur. GENERAL: Cachectic, thin built lady. HEART: S1, S2, with regular rhythm. ABDOMEN: Soft, tender to palpation diffusely with a protuberant abdomen. EXTREMITIES: 2+ pitting edema diffusely. Also has sacral and buttock edema. NEUROLOGICAL: Nonfocal, intact. PSYCHIATRIC: Appropriate affect and mood. Results Result Diagram: 07/24/1628 07/24/16727 Results 24 hrs Laboratory Tests Test 07/24/16 07:28 White Blood Count 4.5 L Red Blood Count 3.57 L Hemoglobin 10.7 L Hematocrit 32.3 L Mean Corpuscular Volume 90.5 Mean Corpuscular Hemoglobin 30.0 Mean Corpuscular Hemoglobin Concent 33.1 Red Cell Distribution Width 14.4 Platelet Count 178 Mean Platelet Volume 9.8 Neutrophils % 75.4 Lymphocytes % 20.2 Monocytes % 4.0 Eosinophils % 0.0 Basophils % 0.0 Nucleated Red Blood Cells % 0.0 Neutrophils # 3.4 Lymphocytes # 0.9 Monocytes # 0.2 L Eosinophils # 0.0 Basophils # 0.0 Nucleated Red Blood Cells # 0.0 Sodium Level 127 L Potassium Level 3.7 Chloride Level 88 L Carbon Dioxide Level 36 H Anion Gap 7 L Blood Urea Nitrogen 21 H Creatinine 0.68 Glucose Level 222 #H Calcium Level 7.4 L Medications Medications Current Medications Ondansetron HCl (Zofran Inj) 4 mg Q6H PRN IV NAUSEA AND/OR VOMITING Last administered on 07/22/16 15:15; Admin Dose 4 MG; Start 07/18/16 at 20:00 Acetaminophen (Tylenol Tab) 650 mg Q6H PRN PO PAIN LEVEL 1-3 OR FEVER Last administered on 07/23/16 05:39; Admin Dose 650 MG; Start 07/18/16 at 20:00 Docusate Sodium (Colace) 100 mg Q12H PRN PO CONSTIPATION Last administered on 21:58; Admin Dose 100 MG; Start 07/18/16 at 20:00 Magnesium Hydroxide (Milk Of Mag) 30 ml DAILY PRN PO CONSTIPATION Last administered on 07/23/16 22:04; Admin Dose 30 ML; Start 07/18/16 at 20:00 Sodium Biphosphate/ Sodium Phosphate (Fleet Enema) 133 ml DAILY PRN [place] CONSTIPATION; Start 07/18/16 at 20:00 Pantoprazole (Protonix Tab) 40 mg DAILY@06 PO Last administered on 07/24/16 05: 13; Admin Dose 40 MG; Start 07/19/16 at 06:00 Heparin Sodium (Porcine) (Heparin (5000 Units/0.5 ml)) 5,000 unit Q12 SC Last administered on 07/23/16 21:58; Admin Dose 5,000 UNIT; Start 07/18/16 at 21:00 Hydralazine HCl (Apresoline) 10 mg Q6H PRN IV ELEVATED BLOOD PRESSURE; Start at 20:00 Nitroglycerin (Nitroglycerin (Sl Tab) 0.4 Mg) 1 tab Q5M PRN SL ANGINA; Start at 20:00 Ascorbic Acid (Vitamin C) 500 mg DAILY PO Last administered on 07/24/16 09:40; Admin Dose 500 MG; Start 07/19/16 at 09:00 Levothyroxine Sodium (Synthroid) 175 mcg DAILY@06 PO Last administered on 05:11; Admin Dose 175 MCG; Start 07/19/16 at 06:00 Montelukast Sodium (Singulair) 10 mg HS PO Last administered on 07/23/16 22:00 ; Admin Dose 10 MG; Start 07/18/16 at 21:00 Thiamine HCl (Vitamin B1) 100 mg DAILY PO Last administered on 07/24/16 09:40; Admin Dose 100 MG; Start 07/19/16 at 09:00 Triamcinolone Acetonide (Kenalog 0.1% Cr) 1 applic BID TOP Last administered on 07/20/16 13:00; Admin Dose 1 APPLIC; Start 07/18/16 at 21:00; Status Future Hold Venlafaxine HCl (Effexor) 150 mg DAILY PO Last administered on 07/24/16 09:40; Admin Dose 150 MG; Start 07/19/16 at 09:00 Zinc Sulfate (Zinc Sulfate) 220 mg DAILY PO Last administered on 07/24/16 09:41 ; Admin Dose 220 MG; Start 07/19/16 at 09:00 Diphenhydramine HCl (Benadryl) 25 mg Q6H PRN PO ITCHING; Start 07/19/16 at 15: 00 Gabapentin 100 mg 100 mg BID PO Last administered on 07/24/16 09:40; Admin Dose 100 MG; Start 07/20/16 at 09:00 Imipenem/ Cilastatin Sodium (Primaxin 500 Mg/ 100 ml (Pmx)) 100 ml @ 100 mls/ hr Q8 IVPB Last administered on 07/24/16 14:56; Admin Dose 100 MLS/HR; Start at 12:00 Non-Formulary Medication . BID TOP Last administered on 07/24/16 09:42; Admin Dose 1 EA; Start 07/20/16 at 21:00 Oxycodone HCl (Oxycontin) 30 mg BID PO Last administered on 07/24/16 08:59; Admin Dose 30 MG; Start 07/20/16 at 21:00 Methylprednisolone Sodium Succinate (Solu-Medrol) 40 mg Q8 IV Last administered on 07/24/16 13:26; Admin Dose 40 MG; Start 07/20/16 at 14:30 Oxycodone HCl (Roxicodone) 15 mg Q6H PRN PO PAIN LEVEL 4-6 Last administered on 07/24/16 17:47; Admin Dose 15 MG; Start 07/20/16 at 15:00 IV Flush (NS 10 ml) 10 ml PRN PRN IV IV PROTOCOL; Start 07/20/16 at 21:30 Diphenhydramine HCl (Benadryl) 50 mg QHS PRN IV INSOMNIA Last administered on 01:22; Admin Dose 50 MG; Start 07/21/16 at 18:30 Lactulose 20 gm 20 gm Q8 PO Last administered on 07/24/16 13:26; Admin Dose 20 GM; Start 07/23/16 at 14:00 Albumin Human 100 ml @ 100 mls/hr DAILY IV Last administered on 07/24/16 11:14 ; Admin Dose 100 MLS/HR; Start 07/24/16 at 09:00 Sodium Chloride (1/2 NS) 1,000 ml @ 60 mls/hr [id number] IV Last administered on 07/24/16 13:26; Admin Dose 60 MLS/HR; Start 07/24/16 at 11:30; Stop 07/25/16 at 04 :09 Furosemide (Lasix) 20 mg DAILY IV ; Start 07/25/16 at 09:00 BECCA CALDERÓN MD July 24, 2016 19:03
[2016-07-24 20:06] LABS: CARCINOEMBRYONIC ANTIGEN 29.8 ng/ml (0.0-5.0)
[2016-07-24 20:43] VITALS: BP 109/78; RESP 19
[2016-07-24] MEDS: MONTELUKAST 10 MG TAB PO SCH (21:39)
[2016-07-25] MEDS: MAGNESIUM HYDROXIDE 30ML CUP PO PRN (04:43)
[2016-07-25 05:20] LABS: ADD SCAN DIFF NO
[2016-07-25 05:25] LABS: HEMATOCRIT 31.5 % (37.0-47.0); HEMOGLOBIN 10.5 g/dl (12.0-16.0); LYMPHOCYTES # 1.2 10^3/ul (0.8-2.9); LYMPHOCYTES % 26.8 % (15.0-51.0); MEAN CORPUSCULAR HEMOGLOBIN 30.3 pg (29.0-33.0); MEAN CORPUSCULAR HGB CONC 33.3 g/dl (32.0-37.0); MEAN CORPUSCULAR VOLUME 90.8 fl (82.0-101.0); MEAN PLATELET VOLUME 9.3 fl (7.4-10.4); MONOCYTE # 0.2 10^3/ul (0.3-0.9); MONOCYTES % 3.5 % (0.0-11.0); NEUTROPHIL # 3.2 10^3/ul (1.6-7.5); NEUTROPHILS % 69.1 % (39.0-77.0); PLATELET COUNT 142 10^3/UL (140-415); RED BLOOD COUNT 3.47 10^6/ul (4.20-5.40); RED CELL DISTRIBUTION WIDTH 14.6 % (11.5-14.5); WHITE BLOOD COUNT 4.6 10^3/ul (4.8-10.8)
[2016-07-25] MEDS: POLYETHYLENE GLYCOL 3350 119 GM POWDER PO ONE ×2 (05:38→05:46)
[2016-07-25 05:39] LABS: POTASSIUM 3.4 mmol/L (3.5-5.1)
[2016-07-25] MEDS: LEVOTHYROXINE 175 MCG TAB PO SCH (05:39)
[2016-07-25] MEDS: IMIPENEM-CILAST 500MG IV (PMX) 100 ML IVPB SCH ×3 (05:39→22:21)
[2016-07-25] MEDS: METHYLPREDNISOLONE 40 MG INJ IV SCH ×3 (05:39→22:21)
[2016-07-25] MEDS: LACTULOSE 30ML CUP PO SCH ×3 (05:39→22:21)
[2016-07-25] MEDS: oxyCODONE 5 MG TAB PO PRN ×3 (05:39→19:01)
[2016-07-25] MEDS: PANTOPRAZOLE (EC) 40 MG TAB PO SCH (05:40)
[2016-07-25 05:41] LABS: CREATININE 0.5 mg/dl (0.44-1.00)
[2016-07-25] MEDS ORDERED: BISACODYL (EC) 5 MG TAB PO ONE (08:00)
[2016-07-25] MEDS: VENLAFAXINE 75 MG TABLET PO SCH (08:33)
[2016-07-25] MEDS: THIAMINE 100 MG TAB PO SCH (08:33)
[2016-07-25] MEDS: ZINC SULFATE 220 MG CAP PO SCH (08:34)
[2016-07-25] MEDS: GABAPENTIN 100 MG CAP PO SCH ×2 (08:34→20:53)
[2016-07-25] MEDS: ASCORBIC ACID 500 MG TAB PO SCH (08:34)
[2016-07-25] MEDS: oxyCODONE (CR) 10 MG TAB [oxyCONTIN] PO SCH ×2 (08:34→20:53)
[2016-07-25] MEDS: ALBUMIN HUMAN 25% 100 ML IV SCH (08:37)
[2016-07-25] MEDS ORDERED: FUROSEMIDE 20 MG INJ IV SCH (09:00)
[2016-07-25] MEDS: TRIAMCINOLONE ACETONIDE 0.1% TOP SCH ×3 (09:00→20:57)
[2016-07-25] MEDS: HEPARIN 5,000 UNIT/0.5 ML VIAL SC SCH ×2 (09:00→20:54)
--- NOTE | 2016-07-25 14:24 | CONS ---
DATE OF ADMISSION: 07/18/2016 DATE OF CONSULTATION: 07/25/2016 HEMATOLOGY/ONCOLOGY PROGRESS NOTE SUBJECTIVE: Patient has no new complaints other than being hungry. She is being kept n.p.o. for c olonoscopy. OBJECTIVE: VITAL SIGNS: Temperature 98.5, pulse 76 per minute, respirations 19, blood pressure 109/78 and puls e oximetry is 100%, SKIN: No ecchymosis or petechiae. There is an erythematous, dry rash along the belt line on the a nterior abdomen. Does not carrie. No bullae or vesicles. HEENT: No mucosal lesions. No scleral icterus. NECK: Supple, no jugular venous distention or thyroid enlargement. CHEST: Clear to auscultation and percussion. No rhonchi, wheezes, rales or rubs. NODES: No palpable lymphadenopathy in lymph node bearing area. ABDOMEN: Flat and soft. There are no distinct masses. The liver, however, is palpable 5 to 6 cm b elow the right costal margin in the midclavicular line. It is firm to the touch. EXTREMITIES: No clubbing, edema or cyanosis. No palpable cords or Homans sign. NEUROLOGIC: Normal. Sodium 132, potassium 4.2, creatinine 0.5, BUN 13. Repeat CEA is 29.8, CA 19-9 is 269 and CA-125 is 27. Alpha fetoprotein is 3.06. ASSESSMENT: 1. Alcoholic liver disease. 2. Elevated tumor markers, etiology unknown. PLAN: The patient is to have a colonoscopy today to further evaluate for possible colonic lesion ve rsus colitis or inflammatory bowel disease. Dictated By: JACKSON BENITEZ MD, SR/NTS Conf#: [id number] DID#: [id number]
[2016-07-25 15:45] VITALS: BP 120/88; PULSE 78; RESP 18
[2016-07-25 18:04] VITALS: BP 123/83; PULSE 70; RESP 18
--- NOTE | 2016-07-25 18:38 | PN ---
Date/Time of Note Date/Time of Note DATE: 07/25/16 TIME: 18:35 Assessment/Plan VTE Prophylaxis VTE Prophylaxis Intervention: heparin Lines/Catheters IV Catheter Type (from Nrsg): PICC Line Central line still needed: Yes Urinary Cath still in place: Yes Reason Cath still needed: other (indicate) Assessment/Plan Assessment/Plan 45-year-old female coming in with lower extremity swelling, skin rash and weakness. 1. Weakness and lower extremity swelling: resolved 2. Rash : ?Vasculitis- improved 3. Opioid dependency - appreciate pain/palliative consult - pain meds per their rec's 4. S/p gastric bypass. Continue proton pump inhibitor. 5. Chronic depression. : stable 6. Alcoholic liver disease with lower extremity swelling. 7. ESBL UTI 8. Weight loss + elevated CA 19-9, CA 125. and CEA : these could be related to Gastric bypass surgery? 9. Colonic ulcerations on last colonoscopy with possible IBD on path 10. Episodes of confusion with elevated ammonia 11. Hyponatremia: 2/2 fluid overload 12. Constipation, ?OIC 13. Noncompliance Plan: * Colonoscopy today * Continue lactulose * Continue abx for UTI * Continue steroids for rash * Continue all meds and supportive care * Gastrointestinal prophylaxis, proton pump inhibitor. * Deep venous thrombosis prophylaxis, heparin. * Case mgt to wok on placement if indicated by PT, patient should be ready for d /c by tomorrow Subjective 24 Hr Interval Summary Constitutional: improved, no complaints Exam/Review of Systems Vital Signs Vitals Vital Signs Date Time Temp Pulse Resp B/P Pulse Ox O2 Delivery O2 Flow Rate FiO2 07/25/16 18:04 70 18 123/83 100 Room Air 07/24/16 20:43 98.5 Intake and Output 07/24/16 07/24/16 07/25/16 15:00 23:00 07:00 Intake Total 100 ml 2380 ml 760 ml Output Total 4300 ml 800 ml Balance 100 ml -1920 ml -40 ml Exam Constitutional: alert, frail, oriented, No distress Psych: nl mood/affect Head: atraumatic, normocephalic Eyes: PERRL, No icteric ENMT: mucosa pink and moist Neck: supple Respiratory: clear to auscultation, diminished breath sounds Cardiovascular: regular rate and rhythm, No murmurs/extra sounds Gastrointestinal: bowel sounds, distended (mildly), soft Extremities: No edema Neurological: nl mental status, nl speech Skin: No rash or lesions Results Result Diagram: 07/25/1643907/25/16439 Results 24 hrs Laboratory Tests Test 07/25/16 04:40 White Blood Count 4.6 L Red Blood Count 3.47 L Hemoglobin 10.5 L Hematocrit 31.5 L Mean Corpuscular Volume 90.8 Mean Corpuscular Hemoglobin 30.3 Mean Corpuscular Hemoglobin Concent 33.3 Red Cell Distribution Width 14.6 H Platelet Count 142 # Mean Platelet Volume 9.3 Neutrophils % 69.1 Lymphocytes % 26.8 Monocytes % 3.5 Eosinophils % 0.0 Basophils % 0.0 Nucleated Red Blood Cells % 0.0 Neutrophils # 3.2 Lymphocytes # 1.2 Monocytes # 0.2 L Eosinophils # 0.0 Basophils # 0.0 Nucleated Red Blood Cells # 0.0 Sodium Level 132 L Potassium Level 3.4 L Chloride Level 90 L Carbon Dioxide Level 33 H Anion Gap 12 Blood Urea Nitrogen 13 Creatinine 0.50 Glucose Level 130 # Calcium Level 8.0 L Medications Medications Current Medications Ondansetron HCl (Zofran Inj) 4 mg Q6H PRN IV NAUSEA AND/OR VOMITING Last administered on 07/22/16 15:15; Admin Dose 4 MG; Start 07/18/16 at 20:00 Acetaminophen (Tylenol Tab) 650 mg Q6H PRN PO PAIN LEVEL 1-3 OR FEVER Last administered on 07/23/16 05:39; Admin Dose 650 MG; Start 07/18/16 at 20:00 Docusate Sodium (Colace) 100 mg Q12H PRN PO CONSTIPATION Last administered on 21:58; Admin Dose 100 MG; Start 07/18/16 at 20:00 Magnesium Hydroxide (Milk Of Mag) 30 ml DAILY PRN PO CONSTIPATION Last administered on 07/25/16 04:43; Admin Dose 30 ML; Start 07/18/16 at 20:00 Sodium Biphosphate/ Sodium Phosphate (Fleet Enema) 133 ml DAILY PRN [place] CONSTIPATION; Start 07/18/16 at 20:00 Pantoprazole (Protonix Tab) 40 mg DAILY@06 PO Last administered on 07/25/16 05: 40; Admin Dose 40 MG; Start 07/19/16 at 06:00 Heparin Sodium (Porcine) (Heparin (5000 Units/0.5 ml)) 5,000 unit Q12 SC Last administered on 07/23/16 21:58; Admin Dose 5,000 UNIT; Start 07/18/16 at 21:00 Hydralazine HCl (Apresoline) 10 mg Q6H PRN IV ELEVATED BLOOD PRESSURE; Start at 20:00 Nitroglycerin (Nitroglycerin (Sl Tab) 0.4 Mg) 1 tab Q5M PRN SL ANGINA; Start at 20:00 Ascorbic Acid (Vitamin C) 500 mg DAILY PO Last administered on 07/25/16 08:34; Admin Dose 500 MG; Start 07/19/16 at 09:00 Levothyroxine Sodium (Synthroid) 175 mcg DAILY@06 PO Last administered on 05:39; Admin Dose 175 MCG; Start 07/19/16 at 06:00 Montelukast Sodium (Singulair) 10 mg HS PO Last administered on 07/24/16 21:39 ; Admin Dose 10 MG; Start 07/18/16 at 21:00 Thiamine HCl (Vitamin B1) 100 mg DAILY PO Last administered on 07/25/16 08:33; Admin Dose 100 MG; Start 07/19/16 at 09:00 Triamcinolone Acetonide (Kenalog 0.1% Cr) 1 applic BID TOP Last administered on 07/20/16 13:00; Admin Dose 1 APPLIC; Start 07/18/16 at 21:00; Status Future Hold Venlafaxine HCl (Effexor) 150 mg DAILY PO Last administered on 07/25/16 08:33; Admin Dose 150 MG; Start 07/19/16 at 09:00 Zinc Sulfate (Zinc Sulfate) 220 mg DAILY PO Last administered on 07/25/16 08:34 ; Admin Dose 220 MG; Start 07/19/16 at 09:00 Diphenhydramine HCl (Benadryl) 25 mg Q6H PRN PO ITCHING; Start 07/19/16 at 15: 00 Gabapentin 100 mg 100 mg BID PO Last administered on 07/25/16 08:34; Admin Dose 100 MG; Start 07/20/16 at 09:00 Imipenem/ Cilastatin Sodium (Primaxin 500 Mg/ 100 ml (Pmx)) 100 ml @ 100 mls/ hr Q8 IVPB Last administered on 07/25/16 05:39; Admin Dose 100 MLS/HR; Start at 12:00; Stop 07/25/16 at 23:45 Non-Formulary Medication . BID TOP Last administered on 07/25/16 09:00; Admin Dose 1 EA; Start 07/20/16 at 21:00 Oxycodone HCl (Oxycontin) 30 mg BID PO Last administered on 07/25/16 08:34; Admin Dose 30 MG; Start 07/20/16 at 21:00 Methylprednisolone Sodium Succinate (Solu-Medrol) 40 mg Q8 IV Last administered on 07/25/16 05:39; Admin Dose 40 MG; Start 07/20/16 at 14:30 Oxycodone HCl (Roxicodone) 15 mg Q6H PRN PO PAIN LEVEL 4-6 Last administered on 07/25/16 12:27; Admin Dose 15 MG; Start 07/20/16 at 15:00 IV Flush (NS 10 ml) 10 ml PRN PRN IV IV PROTOCOL; Start 07/20/16 at 21:30 Diphenhydramine HCl (Benadryl) 50 mg QHS PRN IV INSOMNIA Last administered on 01:22; Admin Dose 50 MG; Start 07/21/16 at 18:30 Lactulose 20 gm 20 gm Q8 PO Last administered on 07/25/16 05:39; Admin Dose 20 GM; Start 07/23/16 at 14:00 Albumin Human 100 ml @ 100 mls/hr DAILY IV Last administered on 07/25/16 08:37 ; Admin Dose 100 MLS/HR; Start 07/24/16 at 09:00 Meropenem (Merrem 1 Gm/100 ml (Pmx)) 100 ml @ 200 mls/hr Q8 IVPB ; Start at 06:00 Furosemide (Lasix) 20 mg DAILY PO ; Start 07/26/16 at 09:00 TRINIDAD GODOE July 25, 2016 18:38
[2016-07-25] MEDS: MONTELUKAST 10 MG TAB PO SCH (20:54)
[2016-07-25 21:03] VITALS: BP 120/81; RESP 18
[2016-07-26] MEDS: MEROPENEM 1 GM/100 ML (PMX) 100 ML IVPB SCH ×3 (05:31→23:24)
[2016-07-26] MEDS: PANTOPRAZOLE (EC) 40 MG TAB PO SCH (05:32)
[2016-07-26] MEDS: LACTULOSE 30ML CUP PO SCH ×3 (05:32→21:20)
[2016-07-26] MEDS: METHYLPREDNISOLONE 40 MG INJ IV SCH ×2 (05:32→14:17)
[2016-07-26 05:53] LABS: ADD SCAN DIFF NO
[2016-07-26] MEDS: oxyCODONE 5 MG TAB PO PRN ×3 (05:57→18:06)
[2016-07-26 06:09] LABS: HEMATOCRIT 31.6 % (37.0-47.0); HEMOGLOBIN 10.3 g/dl (12.0-16.0); LYMPHOCYTES # 1.2 10^3/ul (0.8-2.9); LYMPHOCYTES % 29.2 % (15.0-51.0); MEAN CORPUSCULAR HEMOGLOBIN 29.9 pg (29.0-33.0); MEAN CORPUSCULAR HGB CONC 32.6 g/dl (32.0-37.0); MEAN CORPUSCULAR VOLUME 91.6 fl (82.0-101.0); MEAN PLATELET VOLUME 9.6 fl (7.4-10.4); MONOCYTE # 0.1 10^3/ul (0.3-0.9); MONOCYTES % 2.7 % (0.0-11.0); NEUTROPHIL # 2.7 10^3/ul (1.6-7.5); NEUTROPHILS % 67.4 % (39.0-77.0); PLATELET COUNT 171 10^3/UL (140-415); RED BLOOD COUNT 3.45 10^6/ul (4.20-5.40); RED CELL DISTRIBUTION WIDTH 14.7 % (11.5-14.5)
[2016-07-26 06:29] LABS: POTASSIUM 3.7 mmol/L (3.5-5.1)
[2016-07-26 06:32] LABS: CALCIUM 8.2 mg/dl (8.4-10.2); CREATININE 0.56 mg/dl (0.44-1.00)
[2016-07-26 08:00] VITALS: BP 107/67; RESP 18
[2016-07-26] MEDS: oxyCODONE (CR) 10 MG TAB [oxyCONTIN] PO SCH ×2 (09:03→21:22)
[2016-07-26] MEDS: ZINC SULFATE 220 MG CAP PO SCH (09:04)
[2016-07-26] MEDS: ASCORBIC ACID 500 MG TAB PO SCH (09:04)
[2016-07-26] MEDS: GABAPENTIN 100 MG CAP PO SCH ×2 (09:04→21:22)
[2016-07-26] MEDS: LEVOTHYROXINE 175 MCG TAB PO SCH (09:04)
[2016-07-26] MEDS: VENLAFAXINE 75 MG TABLET PO SCH (09:04)
[2016-07-26] MEDS: THIAMINE 100 MG TAB PO SCH (09:04)
[2016-07-26] MEDS: ALBUMIN HUMAN 25% 100 ML IV SCH (09:09)
[2016-07-26] MEDS: FUROSEMIDE 20 MG TAB PO SCH (09:12)
[2016-07-26] MEDS: HEPARIN 5,000 UNIT/0.5 ML VIAL SC SCH ×2 (09:13→21:00)
[2016-07-26] MEDS: TRIAMCINOLONE ACETONIDE 0.1% TOP SCH ×2 (09:21→21:25)
--- NOTE | 2016-07-26 10:56 | CONS ---
Date/Time of Note Date/Time of Note DATE: 07/26/16 TIME: 10:54 Assessment/Plan Assessment/Plan Additional Assessment/Plan 1. Anasarca with significant lower extremity edema, rule out nephrotic syndrome. 2. Hyponatremia likely secondary to fluid overload in the setting of anasarca. 3. Possible chronic kidney disease, low proteinuric. 4. Acute kidney injury on chronic kidney disease secondary to prerenal azotemia and the fluid overload secondary to anasarca. 5. Cachexia, rule out malignancy. 6. History of gastric bypass surgery. 7. History of a thyroidectomy. 8. History of gallbladder removal. 9. History of depression, anxiety and asthma. plan: S/p IV lasix with albumin Pelvis US normal S/p Colonoscopy na normal, BP stable, Cr normal change lasix to 20mg po daily will vanessa gray Consultation Date/Type/Reason Admit Date/Time Jul 18, 2016 at 18:02 Type of Consultation: NEPHROLOGY Reason for Consultation acute kidney injury, Hyponatremia Referring Provider: TRINIDAD GOODE 24 HR Interval Summary Free Text/Dictation doing ok, BP stable, Na normal, Cr normal Exam/Review of Systems Vital Signs Vitals Vital Signs Date Time Temp Pulse Resp B/P Pulse Ox O2 Delivery O2 Flow Rate FiO2 07/25/16 21:03 97.8 88 18 120/81 100 07/25/16 18:04 Room Air Intake and Output 07/25/16 07/25/16 07/26/16 15:00 23:00 07:00 Intake Total 100 ml 100 ml 680 ml Output Total 1500 ml 800 ml Balance -1400 ml 100 ml -120 ml Exam GENERAL: Awake, alert, in no distress. HEENT: Normal. Oropharynx clear. NECK: Supple, no JVD, no lymphadenopathy. LUNGS: Decreased breath sounds at both lung bases. HEART: S1, S2, tachycardia, no murmur. GENERAL: Cachectic, thin built lady. HEART: S1, S2, with regular rhythm. ABDOMEN: Soft, tender to palpation diffusely with a protuberant abdomen. EXTREMITIES: 2+ pitting edema diffusely. Also has sacral and buttock edema. NEUROLOGICAL: Nonfocal, intact. PSYCHIATRIC: Appropriate affect and mood. Results Result Diagram: 07/26/16 0537 07/26/16 0537 Results 24 hrs Laboratory Tests Test 07/26/16 05:37 White Blood Count 4.0 L Red Blood Count 3.45 L Hemoglobin 10.3 L Hematocrit 31.6 L Mean Corpuscular Volume 91.6 Mean Corpuscular Hemoglobin 29.9 Mean Corpuscular Hemoglobin Concent 32.6 Red Cell Distribution Width 14.7 H Platelet Count 171 # Mean Platelet Volume 9.6 Neutrophils % 67.4 Lymphocytes % 29.2 Monocytes % 2.7 Eosinophils % 0.0 Basophils % 0.0 Nucleated Red Blood Cells % 0.0 Neutrophils # 2.7 Lymphocytes # 1.2 Monocytes # 0.1 L Eosinophils # 0.0 Basophils # 0.0 Nucleated Red Blood Cells # 0.0 Sodium Level 132 L Potassium Level 3.7 Chloride Level 93 L Carbon Dioxide Level 30 Anion Gap 13 Blood Urea Nitrogen 9 Creatinine 0.56 Glucose Level 134 Calcium Level 8.2 L Medications Medications Current Medications Ondansetron HCl (Zofran Inj) 4 mg Q6H PRN IV NAUSEA AND/OR VOMITING Last administered on 07/22/16 15:15; Admin Dose 4 MG; Start 07/18/16 at 20:00 Acetaminophen (Tylenol Tab) 650 mg Q6H PRN PO PAIN LEVEL 1-3 OR FEVER Last administered on 07/23/16 05:39; Admin Dose 650 MG; Start 07/18/16 at 20:00 Docusate Sodium (Colace) 100 mg Q12H PRN PO CONSTIPATION Last administered on 21:58; Admin Dose 100 MG; Start 07/18/16 at 20:00 Magnesium Hydroxide (Milk Of Mag) 30 ml DAILY PRN PO CONSTIPATION Last administered on 07/25/16 04:43; Admin Dose 30 ML; Start 07/18/16 at 20:00 Sodium Biphosphate/ Sodium Phosphate (Fleet Enema) 133 ml DAILY PRN [place] CONSTIPATION; Start 07/18/16 at 20:00 Pantoprazole (Protonix Tab) 40 mg DAILY@06 PO Last administered on 07/26/16 05: 32; Admin Dose 40 MG; Start 07/19/16 at 06:00 Heparin Sodium (Porcine) (Heparin (5000 Units/0.5 ml)) 5,000 unit Q12 SC Last administered on 07/26/16 09:13; Admin Dose 5,000 UNIT; Start 07/18/16 at 21:00 Hydralazine HCl (Apresoline) 10 mg Q6H PRN IV ELEVATED BLOOD PRESSURE; Start at 20:00 Nitroglycerin (Nitroglycerin (Sl Tab) 0.4 Mg) 1 tab Q5M PRN SL ANGINA; Start at 20:00 Ascorbic Acid (Vitamin C) 500 mg DAILY PO Last administered on 07/26/16 09:04; Admin Dose 500 MG; Start 07/19/16 at 09:00 Montelukast Sodium (Singulair) 10 mg HS PO Last administered on 07/25/16 20:54 ; Admin Dose 10 MG; Start 07/18/16 at 21:00 Thiamine HCl (Vitamin B1) 100 mg DAILY PO Last administered on 07/26/16 09:04; Admin Dose 100 MG; Start 07/19/16 at 09:00 Triamcinolone Acetonide (Kenalog 0.1% Cr) 1 applic BID TOP Last administered on 07/20/16 13:00; Admin Dose 1 APPLIC; Start 07/18/16 at 21:00; Status Future Hold Venlafaxine HCl (Effexor) 150 mg DAILY PO Last administered on 07/26/16 09:04; Admin Dose 150 MG; Start 07/19/16 at 09:00 Zinc Sulfate (Zinc Sulfate) 220 mg DAILY PO Last administered on 07/26/16 09:04 ; Admin Dose 220 MG; Start 07/19/16 at 09:00 Diphenhydramine HCl (Benadryl) 25 mg Q6H PRN PO ITCHING; Start 07/19/16 at 15: 00 Gabapentin (Neurontin) 100 mg BID PO Last administered on 07/26/16 09:04; Admin Dose 100 MG; Start 07/20/16 at 09:00 Non-Formulary Medication . BID TOP Last administered on 07/26/16 09:21; Admin Dose 1 EA; Start 07/20/16 at 21:00 Oxycodone HCl (Oxycontin) 30 mg BID PO Last administered on 07/26/16 09:03; Admin Dose 30 MG; Start 07/20/16 at 21:00 Methylprednisolone Sodium Succinate (Solu-Medrol) 40 mg Q8 IV Last administered on 07/26/16 05:32; Admin Dose 40 MG; Start 07/20/16 at 14:30 Oxycodone HCl (Roxicodone) 15 mg Q6H PRN PO PAIN LEVEL 4-6 Last administered on 07/26/16 05:57; Admin Dose 15 MG; Start 07/20/16 at 15:00 IV Flush (NS 10 ml) 10 ml PRN PRN IV IV PROTOCOL; Start 07/20/16 at 21:30 Diphenhydramine HCl (Benadryl) 50 mg QHS PRN IV INSOMNIA Last administered on 01:22; Admin Dose 50 MG; Start 07/21/16 at 18:30 Lactulose 20 gm 20 gm Q8 PO Last administered on 07/26/16 05:32; Admin Dose 20 GM; Start 07/23/16 at 14:00 Albumin Human 100 ml @ 100 mls/hr DAILY IV Last administered on 07/26/16 09:09 ; Admin Dose 100 MLS/HR; Start 07/24/16 at 09:00 Meropenem (Merrem 1 Gm/100 ml (Pmx)) 100 ml @ 200 mls/hr Q8 IVPB Last administered on 07/26/16 05:31; Admin Dose 200 MLS/HR; Start 07/26/16 at 06:00 Furosemide (Lasix) 20 mg DAILY PO Last administered on 07/26/16 09:12; Admin Dose 20 MG; Start 07/26/16 at 09:00 Levothyroxine Sodium (Synthroid) 175 mcg DAILY@06 PO Last administered on 09:04; Admin Dose 175 MCG; Start 07/26/16 at 06:00 BECCA CALDERÓN MD July 26, 2016 10:56
--- NOTE | 2016-07-26 13:41 | QN ---
Documentation Comment Pt had colonoscopy done but report not available. I will check back later. Note that elevated tumor markers were found but these are not diagnostic for malignancy. ALEXA LYNN MD July 26, 2016 13:41
--- NOTE | 2016-07-26 14:44 | PN ---
Date/Time of Note Date/Time of Note DATE: 07/26/16 TIME: 14:37 Assessment/Plan VTE Prophylaxis VTE Prophylaxis Intervention: SCD's Lines/Catheters IV Catheter Type (from Nrsg): PICC Line Central line still needed: Yes Urinary Cath still in place: Yes Reason Cath still needed: other (indicate) (not needed) Assessment/Plan Assessment/Plan 45-year-old female coming in with lower extremity swelling, skin rash and weakness. 1. Weakness and lower extremity swelling: resolved 2. Rash : ?Vasculitis- improved 3. Opioid dependency - appreciate pain/palliative consult - pain meds per their rec's 4. S/p gastric bypass. Continue proton pump inhibitor. 5. Chronic depression. : stable 6. Alcoholic liver disease with lower extremity swelling. 7. ESBL UTI 8. Weight loss + elevated CA 19-9, CA 125. and CEA : these could be related to Gastric bypass surgery? 9. Colonic ulcerations on last colonoscopy with possible IBD on path 10. Episodes of confusion with elevated ammonia 11. Hyponatremia: 2/2 fluid overload 12. Constipation, ?OIC 13. Noncompliance Plan: * MRI brain / d/c howard / PT assessment * Continue all meds and supportive care * Gastrointestinal prophylaxis, proton pump inhibitor. * Deep venous thrombosis prophylaxis, heparin. * Case mgt to wok on placement if indicated by PT, patient should be ready for d /c by tomorrow Subjective 24 Hr Interval Summary Free Text/Dictation still reporting confusion and now blurry vision Exam/Review of Systems Vital Signs Vitals Vital Signs Date Time Temp Pulse Resp B/P Pulse Ox O2 Delivery O2 Flow Rate FiO2 07/26/16 08:00 98.4 104 18 107/67 96 07/25/16 18:04 Room Air Intake and Output 07/25/16 07/25/16 07/26/16 15:00 23:00 07:00 Intake Total 100 ml 100 ml 680 ml Output Total 1500 ml 800 ml Balance -1400 ml 100 ml -120 ml Exam Constitutional: alert, frail, oriented, No distress Psych: nl mood/affect Head: normocephalic Eyes: PERRL, icteric ENMT: mucosa pink and moist Neck: supple Respiratory: clear to auscultation, diminished breath sounds Cardiovascular: regular rate and rhythm, No murmurs/extra sounds Gastrointestinal: ascites, bowel sounds, distended, soft Extremities: No edema Neurological: nl mental status, No focal weakness Results Result Diagram: 07/26/16 0537 07/26/16 0537 Results 24 hrs Laboratory Tests Test 07/26/16 05:37 White Blood Count 4.0 L Red Blood Count 3.45 L Hemoglobin 10.3 L Hematocrit 31.6 L Mean Corpuscular Volume 91.6 Mean Corpuscular Hemoglobin 29.9 Mean Corpuscular Hemoglobin Concent 32.6 Red Cell Distribution Width 14.7 H Platelet Count 171 # Mean Platelet Volume 9.6 Neutrophils % 67.4 Lymphocytes % 29.2 Monocytes % 2.7 Eosinophils % 0.0 Basophils % 0.0 Nucleated Red Blood Cells % 0.0 Neutrophils # 2.7 Lymphocytes # 1.2 Monocytes # 0.1 L Eosinophils # 0.0 Basophils # 0.0 Nucleated Red Blood Cells # 0.0 Sodium Level 132 L Potassium Level 3.7 Chloride Level 93 L Carbon Dioxide Level 30 Anion Gap 13 Blood Urea Nitrogen 9 Creatinine 0.56 Glucose Level 134 Calcium Level 8.2 L Medications Medications Current Medications Ondansetron HCl (Zofran Inj) 4 mg Q6H PRN IV NAUSEA AND/OR VOMITING Last administered on 07/22/16 15:15; Admin Dose 4 MG; Start 07/18/16 at 20:00 Acetaminophen (Tylenol Tab) 650 mg Q6H PRN PO PAIN LEVEL 1-3 OR FEVER Last administered on 07/23/16 05:39; Admin Dose 650 MG; Start 07/18/16 at 20:00 Docusate Sodium (Colace) 100 mg Q12H PRN PO CONSTIPATION Last administered on 21:58; Admin Dose 100 MG; Start 07/18/16 at 20:00 Magnesium Hydroxide (Milk Of Mag) 30 ml DAILY PRN PO CONSTIPATION Last administered on 07/25/16 04:43; Admin Dose 30 ML; Start 07/18/16 at 20:00 Sodium Biphosphate/ Sodium Phosphate (Fleet Enema) 133 ml DAILY PRN [place] CONSTIPATION; Start 07/18/16 at 20:00 Pantoprazole (Protonix Tab) 40 mg DAILY@06 PO Last administered on 07/26/16 05: 32; Admin Dose 40 MG; Start 07/19/16 at 06:00 Heparin Sodium (Porcine) (Heparin (5000 Units/0.5 ml)) 5,000 unit Q12 SC Last administered on 07/26/16 09:13; Admin Dose 5,000 UNIT; Start 07/18/16 at 21:00 Hydralazine HCl (Apresoline) 10 mg Q6H PRN IV ELEVATED BLOOD PRESSURE; Start at 20:00 Nitroglycerin (Nitroglycerin (Sl Tab) 0.4 Mg) 1 tab Q5M PRN SL ANGINA; Start at 20:00 Ascorbic Acid (Vitamin C) 500 mg DAILY PO Last administered on 07/26/16 09:04; Admin Dose 500 MG; Start 07/19/16 at 09:00 Montelukast Sodium (Singulair) 10 mg HS PO Last administered on 07/25/16 20:54 ; Admin Dose 10 MG; Start 07/18/16 at 21:00 Thiamine HCl (Vitamin B1) 100 mg DAILY PO Last administered on 07/26/16 09:04; Admin Dose 100 MG; Start 07/19/16 at 09:00 Triamcinolone Acetonide (Kenalog 0.1% Cr) 1 applic BID TOP Last administered on 07/20/16 13:00; Admin Dose 1 APPLIC; Start 07/18/16 at 21:00; Status Future Hold Venlafaxine HCl (Effexor) 150 mg DAILY PO Last administered on 07/26/16 09:04; Admin Dose 150 MG; Start 07/19/16 at 09:00 Zinc Sulfate (Zinc Sulfate) 220 mg DAILY PO Last administered on 07/26/16 09:04 ; Admin Dose 220 MG; Start 07/19/16 at 09:00 Diphenhydramine HCl (Benadryl) 25 mg Q6H PRN PO ITCHING; Start 07/19/16 at 15: 00 Gabapentin (Neurontin) 100 mg BID PO Last administered on 07/26/16 09:04; Admin Dose 100 MG; Start 07/20/16 at 09:00 Non-Formulary Medication . BID TOP Last administered on 07/26/16 09:21; Admin Dose 1 EA; Start 07/20/16 at 21:00 Oxycodone HCl (Oxycontin) 30 mg BID PO Last administered on 07/26/16 09:03; Admin Dose 30 MG; Start 07/20/16 at 21:00 Methylprednisolone Sodium Succinate (Solu-Medrol) 40 mg Q8 IV Last administered on 07/26/16 14:17; Admin Dose 40 MG; Start 07/20/16 at 14:30 Oxycodone HCl (Roxicodone) 15 mg Q6H PRN PO PAIN LEVEL 4-6 Last administered on 07/26/16 12:10; Admin Dose 15 MG; Start 07/20/16 at 15:00 IV Flush (NS 10 ml) 10 ml PRN PRN IV IV PROTOCOL; Start 07/20/16 at 21:30 Diphenhydramine HCl (Benadryl) 50 mg QHS PRN IV INSOMNIA Last administered on 01:22; Admin Dose 50 MG; Start 07/21/16 at 18:30 Lactulose 20 gm 20 gm Q8 PO Last administered on 07/26/16 14:17; Admin Dose 20 GM; Start 07/23/16 at 14:00 Albumin Human 100 ml @ 100 mls/hr DAILY IV Last administered on 07/26/16 09:09 ; Admin Dose 100 MLS/HR; Start 07/24/16 at 09:00 Meropenem (Merrem 1 Gm/100 ml (Pmx)) 100 ml @ 200 mls/hr Q8 IVPB Last administered on 07/26/16 14:17; Admin Dose 200 MLS/HR; Start 07/26/16 at 06:00 Furosemide (Lasix) 20 mg DAILY PO Last administered on 07/26/16 09:12; Admin Dose 20 MG; Start 07/26/16 at 09:00 Levothyroxine Sodium (Synthroid) 175 mcg DAILY@06 PO Last administered on 09:04; Admin Dose 175 MCG; Start 07/26/16 at 06:00 TRINIDAD GOODE July 26, 2016 14:44
[2016-07-26 16:39] LABS: ANA SCREEN NEGATIVE (NEGATIVE)
--- NOTE | 2016-07-26 17:58 | PN ---
Date/Time of Note Date/Time of Note DATE: 07/26/16 TIME: 17:55 Assessment/Plan VTE Prophylaxis VTE Prophylaxis Intervention: SCD's Lines/Catheters IV Catheter Type (from Nrs): PICC Line Central line still needed: Yes Urinary Cath still in place: Yes Reason Cath still needed: urinary retention Assessment/Plan Chief Complaint/Hosp Course Problems: Assessment/Plan Assessment * Abdominal pain/Constipation * Chronic pain syndrome * Alcoholic Liver disease * Hx of gastric bypass * Hx of colonic ulcers * Elevated CEA,19-9,125 * UTI resolving Plan * continue present management Subjective 24 Hr Interval Summary Free Text/Dictation * Course reviewed with RN * patient seen and examined * Colonoscopy 07/25/2016 suboptimal preparation no gross lesions moderate sized internal hemorrhoids Exam/Review of Systems Vital Signs Vitals Vital Signs Date Time Temp Pulse Resp B/P Pulse Ox O2 Delivery O2 Flow Rate FiO2 07/26/16 08:00 98.4 104 18 107/67 96 07/25/16 18:04 Room Air Intake and Output 07/25/16 07/25/16 07/26/16 15:00 23:00 07:00 Intake Total 100 ml 100 ml 680 ml Output Total 1500 ml 800 ml Balance -1400 ml 100 ml -120 ml Exam Constitutional: alert, oriented Neck: non-tender, supple Respiratory: clear to auscultation, normal air movement Cardiovascular: nl pulses, regular rate and rhythm Gastrointestinal: non-tender, soft Musculoskeletal: nl gait and stance Extremities: normal pulses Neurological: nl speech Results Result Diagram: 07/26/16 0537 07/26/16 0537 Results 24 hrs Laboratory Tests Test 07/26/16 05:37 White Blood Count 4.0 L Red Blood Count 3.45 L Hemoglobin 10.3 L Hematocrit 31.6 L Mean Corpuscular Volume 91.6 Mean Corpuscular Hemoglobin 29.9 Mean Corpuscular Hemoglobin Concent 32.6 Red Cell Distribution Width 14.7 H Platelet Count 171 # Mean Platelet Volume 9.6 Neutrophils % 67.4 Lymphocytes % 29.2 Monocytes % 2.7 Eosinophils % 0.0 Basophils % 0.0 Nucleated Red Blood Cells % 0.0 Neutrophils # 2.7 Lymphocytes # 1.2 Monocytes # 0.1 L Eosinophils # 0.0 Basophils # 0.0 Nucleated Red Blood Cells # 0.0 Sodium Level 132 L Potassium Level 3.7 Chloride Level 93 L Carbon Dioxide Level 30 Anion Gap 13 Blood Urea Nitrogen 9 Creatinine 0.56 Glucose Level 134 Calcium Level 8.2 L Medications Medications Current Medications Ondansetron HCl (Zofran Inj) 4 mg Q6H PRN IV NAUSEA AND/OR VOMITING Last administered on 07/22/16 15:15; Admin Dose 4 MG; Start 07/18/16 at 20:00 Acetaminophen (Tylenol Tab) 650 mg Q6H PRN PO PAIN LEVEL 1-3 OR FEVER Last administered on 07/23/16 05:39; Admin Dose 650 MG; Start 07/18/16 at 20:00 Docusate Sodium (Colace) 100 mg Q12H PRN PO CONSTIPATION Last administered on 21:58; Admin Dose 100 MG; Start 07/18/16 at 20:00 Magnesium Hydroxide (Milk Of Mag) 30 ml DAILY PRN PO CONSTIPATION Last administered on 07/25/16 04:43; Admin Dose 30 ML; Start 07/18/16 at 20:00 Sodium Biphosphate/ Sodium Phosphate (Fleet Enema) 133 ml DAILY PRN [place] CONSTIPATION; Start 07/18/16 at 20:00 Pantoprazole (Protonix Tab) 40 mg DAILY@06 PO Last administered on 07/26/16 05: 32; Admin Dose 40 MG; Start 07/19/16 at 06:00 Heparin Sodium (Porcine) (Heparin (5000 Units/0.5 ml)) 5,000 unit Q12 SC Last administered on 07/26/16 09:13; Admin Dose 5,000 UNIT; Start 07/18/16 at 21:00 Hydralazine HCl (Apresoline) 10 mg Q6H PRN IV ELEVATED BLOOD PRESSURE; Start at 20:00 Nitroglycerin (Nitroglycerin (Sl Tab) 0.4 Mg) 1 tab Q5M PRN SL ANGINA; Start at 20:00 Ascorbic Acid (Vitamin C) 500 mg DAILY PO Last administered on 07/26/16 09:04; Admin Dose 500 MG; Start 07/19/16 at 09:00 Montelukast Sodium (Singulair) 10 mg HS PO Last administered on 07/25/16 20:54 ; Admin Dose 10 MG; Start 07/18/16 at 21:00 Thiamine HCl (Vitamin B1) 100 mg DAILY PO Last administered on 07/26/16 09:04; Admin Dose 100 MG; Start 07/19/16 at 09:00 Triamcinolone Acetonide (Kenalog 0.1% Cr) 1 applic BID TOP Last administered on 07/20/16 13:00; Admin Dose 1 APPLIC; Start 07/18/16 at 21:00; Status Future Hold Venlafaxine HCl (Effexor) 150 mg DAILY PO Last administered on 07/26/16 09:04; Admin Dose 150 MG; Start 07/19/16 at 09:00 Zinc Sulfate (Zinc Sulfate) 220 mg DAILY PO Last administered on 07/26/16 09:04 ; Admin Dose 220 MG; Start 07/19/16 at 09:00 Diphenhydramine HCl (Benadryl) 25 mg Q6H PRN PO ITCHING; Start 07/19/16 at 15: 00 Gabapentin (Neurontin) 100 mg BID PO Last administered on 07/26/16 09:04; Admin Dose 100 MG; Start 07/20/16 at 09:00 Non-Formulary Medication . BID TOP Last administered on 07/26/16 09:21; Admin Dose 1 EA; Start 07/20/16 at 21:00 Oxycodone HCl (Oxycontin) 30 mg BID PO Last administered on 07/26/16 09:03; Admin Dose 30 MG; Start 07/20/16 at 21:00 Oxycodone HCl (Roxicodone) 15 mg Q6H PRN PO PAIN LEVEL 4-6 Last administered on 07/26/16 12:10; Admin Dose 15 MG; Start 07/20/16 at 15:00 IV Flush (NS 10 ml) 10 ml PRN PRN IV IV PROTOCOL; Start 07/20/16 at 21:30 Diphenhydramine HCl (Benadryl) 50 mg QHS PRN IV INSOMNIA Last administered on 01:22; Admin Dose 50 MG; Start 07/21/16 at 18:30 Lactulose 20 gm 20 gm Q8 PO Last administered on 07/26/16 14:17; Admin Dose 20 GM; Start 07/23/16 at 14:00 Albumin Human 100 ml @ 100 mls/hr DAILY IV Last administered on 07/26/16 09:09 ; Admin Dose 100 MLS/HR; Start 07/24/16 at 09:00 Meropenem (Merrem 1 Gm/100 ml (Pmx)) 100 ml @ 200 mls/hr Q8 IVPB Last administered on 07/26/16 14:17; Admin Dose 200 MLS/HR; Start 07/26/16 at 06:00 Furosemide (Lasix) 20 mg DAILY PO Last administered on 07/26/16 09:12; Admin Dose 20 MG; Start 07/26/16 at 09:00 Levothyroxine Sodium (Synthroid) 175 mcg DAILY@06 PO Last administered on 09:04; Admin Dose 175 MCG; Start 07/26/16 at 06:00 Prednisone (Prednisone) 40 mg ONCE ONCE PO ; Start 07/27/16 at 09:00; Stop at 09:01 Prednisone (Prednisone) 30 mg ONCE ONCE PO ; Start 07/28/16 at 09:00; Stop at 09:01 Prednisone (Prednisone) 20 mg ONCE ONCE PO ; Start 07/29/16 at 09:00; Stop at 09:01 Prednisone (Prednisone) 10 mg ONCE ONCE PO ; Start 07/30/16 at 09:00; Stop at 09:01 THUY VILLELA MD July 26, 2016 17:58
[2016-07-26 21:20] VITALS: BP 113/77; RESP 20
[2016-07-26] MEDS: MONTELUKAST 10 MG TAB PO SCH (21:23)
[2016-07-27] MEDS: oxyCODONE 5 MG TAB PO PRN ×3 (00:12→12:30)
[2016-07-27] MEDS: MEROPENEM 1 GM/100 ML (PMX) 100 ML IVPB SCH ×2 (06:18→14:19)
[2016-07-27] MEDS: PANTOPRAZOLE (EC) 40 MG TAB PO SCH (06:19)
[2016-07-27] MEDS: LEVOTHYROXINE 175 MCG TAB PO SCH (06:19)
[2016-07-27] MEDS: LACTULOSE 30ML CUP PO SCH (06:19)
--- NOTE | 2016-07-27 07:40 | RADRPT ---
PROCEDURE: MR Brain without contrast. CLINICAL INDICATION: Altered level of consciousness. Visual disturbance. TECHNIQUE: MRI brain without contrast was performed. Examination was performed on the high field MRI with the following sequences: Coronal gradient echo, sagittal T1-weighted, fast spin echo axial T2-weighted, axial FLAIR, axial diffusion-weighted images, and axial ADC map images. COMPARISON: CT scan of the brain dated 01/06/2016 which was normal. FINDINGS: The ventricles and sulci are symmetric and normal. The escoto-white matter differentiation is preserv ed. No abnormal intra-axial or extra-axial fluid collection or mass lesion is identified. No hemor rhage or midline shift is seen. The clivus, sella turcica, corpus callosum, and midline structures are all unremarkable. The brainstem and posterior fossa structures are unremarkable. The cerebellop ontine angle regions are clear. No skull base abnormality is seen. The diffusion weighted images demonstrate no evidence of infarct. The surrounding bony calvarium and soft tissue scalp is unremarkable. The orbits, as visualized, ar e unremarkable. The paranasal sinuses are clear IMPRESSION: 1. Normal noncontrast MRI of the brain. RPTAT: QQ .Abebe Goel MD, MD Date Time Electronically viewed and signed by .Abebe Goel MD, on 07/27/2016 07:40 .R/
[2016-07-27 08:01] VITALS: BP 119/82; RESP 16
[2016-07-27] MEDS: oxyCODONE (CR) 10 MG TAB [oxyCONTIN] PO SCH (08:40)
[2016-07-27] MEDS: VENLAFAXINE 75 MG TABLET PO SCH (08:40)
[2016-07-27] MEDS: FUROSEMIDE 20 MG TAB PO SCH (08:42)
[2016-07-27] MEDS: GABAPENTIN 100 MG CAP PO SCH (08:42)
[2016-07-27] MEDS: ZINC SULFATE 220 MG CAP PO SCH (08:43)
[2016-07-27] MEDS: THIAMINE 100 MG TAB PO SCH (08:43)
[2016-07-27] MEDS: ASCORBIC ACID 500 MG TAB PO SCH (08:43)
[2016-07-27] MEDS: ALBUMIN HUMAN 25% 100 ML IV SCH (08:44)
[2016-07-27] MEDS: HEPARIN 5,000 UNIT/0.5 ML VIAL SC SCH ×2 (08:49→09:00)
[2016-07-27] MEDS ORDERED: predniSONE 20 MG TAB PO ONE ×2 (09:00→11:00)
[2016-07-27] MEDS ORDERED: hydrOXYzine HCL 25 MG TAB PO PRN (11:00)
--- NOTE | 2016-07-27 11:22 | PN ---
Date/Time of Note Date/Time of Note DATE: 07/27/16 TIME: 11:19 Assessment/Plan VTE Prophylaxis VTE Prophylaxis Intervention: other (per primary) Lines/Catheters IV [facility] Line Urinary Cath still in place: Yes Assessment/Plan Assessment/Plan Colonoscopy did not show tumor. No further evaluation suggested. Nonspecific elevation of a variety of tumor markers is likely false positive result due to her other medical issues. Suggest serial f/u in a few months to see if there is any trend or change. Subjective 24 Hr Interval Summary Free Text/Dictation No new issues. Exam/Review of Systems Vital Signs Vitals Vital Signs Date Time Temp Pulse Resp B/P Pulse Ox O2 Delivery O2 Flow Rate FiO2 07/27/16 08:01 98.7 84 16 119/82 93 07/25/16 18:04 Room Air Intake and Output 07/26/16 07/26/16 07/27/16 15:00 23:00 07:00 Intake Total 960 ml 840 ml Output Total 500 ml Balance -500 ml 960 ml 840 ml Exam Constitutional: alert, oriented Head: normocephalic Neck: supple Respiratory: clear to auscultation Cardiovascular: regular rate and rhythm Results Result Diagram: 07/26/16 0537 07/26/16 0537 Medications Medications Current Medications Ondansetron HCl (Zofran Inj) 4 mg Q6H PRN IV NAUSEA AND/OR VOMITING Last administered on 07/22/16 15:15; Admin Dose 4 MG; Start 07/18/16 at 20:00 Acetaminophen (Tylenol Tab) 650 mg Q6H PRN PO PAIN LEVEL 1-3 OR FEVER Last administered on 07/23/16 05:39; Admin Dose 650 MG; Start 07/18/16 at 20:00 Docusate Sodium (Colace) 100 mg Q12H PRN PO CONSTIPATION Last administered on 21:58; Admin Dose 100 MG; Start 07/18/16 at 20:00 Magnesium Hydroxide (Milk Of Mag) 30 ml DAILY PRN PO CONSTIPATION Last administered on 07/25/16 04:43; Admin Dose 30 ML; Start 07/18/16 at 20:00 Sodium Biphosphate/ Sodium Phosphate (Fleet Enema) 133 ml DAILY PRN [place] CONSTIPATION; Start 07/18/16 at 20:00 Pantoprazole (Protonix Tab) 40 mg DAILY@06 PO Last administered on 07/27/16 06: 19; Admin Dose 40 MG; Start 07/19/16 at 06:00 Heparin Sodium (Porcine) (Heparin (5000 Units/0.5 ml)) 5,000 unit Q12 SC Last administered on 07/26/16 09:13; Admin Dose 5,000 UNIT; Start 07/18/16 at 21:00 Hydralazine HCl (Apresoline) 10 mg Q6H PRN IV ELEVATED BLOOD PRESSURE; Start at 20:00 Nitroglycerin (Nitroglycerin (Sl Tab) 0.4 Mg) 1 tab Q5M PRN SL ANGINA; Start at 20:00 Ascorbic Acid (Vitamin C) 500 mg DAILY PO Last administered on 07/27/16 08:43; Admin Dose 500 MG; Start 07/19/16 at 09:00 Montelukast Sodium (Singulair) 10 mg HS PO Last administered on 07/26/16 21:23 ; Admin Dose 10 MG; Start 07/18/16 at 21:00 Thiamine HCl (Vitamin B1) 100 mg DAILY PO Last administered on 07/27/16 08:43; Admin Dose 100 MG; Start 07/19/16 at 09:00 Triamcinolone Acetonide (Kenalog 0.1% Cr) 1 applic BID TOP Last administered on 07/20/16 13:00; Admin Dose 1 APPLIC; Start 07/18/16 at 21:00; Status Future Hold Venlafaxine HCl (Effexor) 150 mg DAILY PO Last administered on 07/27/16 08:40; Admin Dose 150 MG; Start 07/19/16 at 09:00 Zinc Sulfate (Zinc Sulfate) 220 mg DAILY PO Last administered on 07/27/16 08:43 ; Admin Dose 220 MG; Start 07/19/16 at 09:00 Diphenhydramine HCl (Benadryl) 25 mg Q6H PRN PO ITCHING; Start 07/19/16 at 15: 00 Gabapentin (Neurontin) 100 mg BID PO Last administered on 07/27/16 08:42; Admin Dose 100 MG; Start 07/20/16 at 09:00 Non-Formulary Medication . BID TOP Last administered on 07/26/16 21:25; Admin Dose 1 EA; Start 07/20/16 at 21:00 Oxycodone HCl (Oxycontin) 30 mg BID PO Last administered on 07/27/16 08:40; Admin Dose 30 MG; Start 07/20/16 at 21:00 Oxycodone HCl (Roxicodone) 15 mg Q6H PRN PO PAIN LEVEL 4-6 Last administered on 07/27/16 06:18; Admin Dose 15 MG; Start 07/20/16 at 15:00 IV Flush (NS 10 ml) 10 ml PRN PRN IV IV PROTOCOL; Start 07/20/16 at 21:30 Diphenhydramine HCl (Benadryl) 50 mg QHS PRN IV INSOMNIA Last administered on 01:22; Admin Dose 50 MG; Start 07/21/16 at 18:30 Lactulose 20 gm 20 gm Q8 PO Last administered on 07/27/16 06:19; Admin Dose 20 GM; Start 07/23/16 at 14:00 Albumin Human 100 ml @ 100 mls/hr DAILY IV Last administered on 07/27/16 08:44 ; Admin Dose 100 MLS/HR; Start 07/24/16 at 09:00 Meropenem (Merrem 1 Gm/100 ml (Pmx)) 100 ml @ 200 mls/hr Q8 IVPB Last administered on 07/27/16 06:18; Admin Dose 200 MLS/HR; Start 07/26/16 at 06:00 Furosemide (Lasix) 20 mg DAILY PO Last administered on 07/27/16 08:42; Admin Dose 20 MG; Start 07/26/16 at 09:00 Levothyroxine Sodium (Synthroid) 175 mcg DAILY@06 PO Last administered on 06:19; Admin Dose 175 MCG; Start 07/26/16 at 06:00 Prednisone (Prednisone) 30 mg ONCE ONCE PO ; Start 07/28/16 at 09:00; Stop at 09:01 Prednisone (Prednisone) 20 mg ONCE ONCE PO ; Start 07/29/16 at 09:00; Stop at 09:01 Prednisone (Prednisone) 10 mg ONCE ONCE PO ; Start 07/30/16 at 09:00; Stop at 09:01 Hydroxyzine HCl (Atarax) 50 mg Q6 PRN PO ITCHING; Start 07/27/16 at 11:00 ALEXA LYNN MD July 27, 2016 11:22
--- NOTE | 2016-07-27 11:47 | CONS ---
Date/Time of Note Date/Time of Note DATE: 07/27/16 TIME: 11:46 Assessment/Plan Assessment/Plan Additional Assessment/Plan 1. Anasarca with significant lower extremity edema, rule out nephrotic syndrome. 2. Hyponatremia likely secondary to fluid overload in the setting of anasarca. 3. Possible chronic kidney disease, low proteinuric. 4. Acute kidney injury on chronic kidney disease secondary to prerenal azotemia and the fluid overload secondary to anasarca. 5. Cachexia, rule out malignancy. 6. History of gastric bypass surgery. 7. History of a thyroidectomy. 8. History of gallbladder removal. 9. History of depression, anxiety and asthma. plan: S/p IV lasix with albumin - improved anasarca Pelvis US normal colonoscopy negative for any tumour Na 132, BP stable, Cr normal changed lasix to 20mg po daily will vanessa gray Consultation Date/Type/Reason Admit Date/Time Jul 18, 2016 at 18:02 Type of Consultation: NEPHROLOGY Referring Provider: TRINIDAD GOODE 24 HR Interval Summary Free Text/Dictation c/o dizziness, blurry vision, Headache, Multiple Complaints, MRI brain negative Exam/Review of Systems Vital Signs Vitals Vital Signs Date Time Temp Pulse Resp B/P Pulse Ox O2 Delivery O2 Flow Rate FiO2 07/27/16 08:01 98.7 84 16 119/82 93 07/25/16 18:04 Room Air Intake and Output 07/26/16 07/26/16 07/27/16 15:00 23:00 07:00 Intake Total 960 ml 840 ml Output Total 500 ml Balance -500 ml 960 ml 840 ml Exam GENERAL: Awake, alert, in no distress. HEENT: Normal. Oropharynx clear. NECK: Supple, no JVD, no lymphadenopathy. LUNGS: Decreased breath sounds at both lung bases. HEART: S1, S2, tachycardia, no murmur. GENERAL: Cachectic, thin built lady. HEART: S1, S2, with regular rhythm. ABDOMEN: Soft, tender to palpation diffusely with a protuberant abdomen. EXTREMITIES: 2+ pitting edema diffusely. Also has sacral and buttock edema. NEUROLOGICAL: Nonfocal, intact. PSYCHIATRIC: Appropriate affect and mood. Results Result Diagram: 07/26/16 0537 07/26/16 05 Medications Medications Current Medications Ondansetron HCl (Zofran Inj) 4 mg Q6H PRN IV NAUSEA AND/OR VOMITING Last administered on 07/22/16 15:15; Admin Dose 4 MG; Start 07/18/16 at 20:00 Acetaminophen (Tylenol Tab) 650 mg Q6H PRN PO PAIN LEVEL 1-3 OR FEVER Last administered on 07/23/16 05:39; Admin Dose 650 MG; Start 07/18/16 at 20:00 Docusate Sodium (Colace) 100 mg Q12H PRN PO CONSTIPATION Last administered on 21:58; Admin Dose 100 MG; Start 07/18/16 at 20:00 Magnesium Hydroxide (Milk Of Mag) 30 ml DAILY PRN PO CONSTIPATION Last administered on 07/25/16 04:43; Admin Dose 30 ML; Start 07/18/16 at 20:00 Sodium Biphosphate/ Sodium Phosphate (Fleet Enema) 133 ml DAILY PRN DE CONSTIPATION; Start 07/18/16 at 20:00 Pantoprazole (Protonix Tab) 40 mg DAILY@06 PO Last administered on 07/27/16 06: 19; Admin Dose 40 MG; Start 07/19/16 at 06:00 Heparin Sodium (Porcine) (Heparin (5000 Units/0.5 ml)) 5,000 unit Q12 SC Last administered on 07/26/16 09:13; Admin Dose 5,000 UNIT; Start 07/18/16 at 21:00 Hydralazine HCl (Apresoline) 10 mg Q6H PRN IV ELEVATED BLOOD PRESSURE; Start at 20:00 Nitroglycerin (Nitroglycerin (Sl Tab) 0.4 Mg) 1 tab Q5M PRN SL ANGINA; Start at 20:00 Ascorbic Acid (Vitamin C) 500 mg DAILY PO Last administered on 07/27/16 08:43; Admin Dose 500 MG; Start 07/19/16 at 09:00 Montelukast Sodium (Singulair) 10 mg HS PO Last administered on 07/26/16 21:23 ; Admin Dose 10 MG; Start 07/18/16 at 21:00 Thiamine HCl (Vitamin B1) 100 mg DAILY PO Last administered on 07/27/16 08:43; Admin Dose 100 MG; Start 07/19/16 at 09:00 Triamcinolone Acetonide (Kenalog 0.1% Cr) 1 applic BID TOP Last administered on 07/20/16 13:00; Admin Dose 1 APPLIC; Start 07/18/16 at 21:00; Status Future Hold Venlafaxine HCl (Effexor) 150 mg DAILY PO Last administered on 07/27/16 08:40; Admin Dose 150 MG; Start 07/19/16 at 09:00 Zinc Sulfate (Zinc Sulfate) 220 mg DAILY PO Last administered on 07/27/16 08:43 ; Admin Dose 220 MG; Start 07/19/16 at 09:00 Diphenhydramine HCl (Benadryl) 25 mg Q6H PRN PO ITCHING; Start 07/19/16 at 15: 00 Gabapentin (Neurontin) 100 mg BID PO Last administered on 07/27/16 08:42; Admin Dose 100 MG; Start 07/20/16 at 09:00 Non-Formulary Medication . BID TOP Last administered on 07/26/16 21:25; Admin Dose 1 EA; Start 07/20/16 at 21:00 Oxycodone HCl (Oxycontin) 30 mg BID PO Last administered on 07/27/16 08:40; Admin Dose 30 MG; Start 07/20/16 at 21:00 Oxycodone HCl (Roxicodone) 15 mg Q6H PRN PO PAIN LEVEL 4-6 Last administered on 07/27/16 06:18; Admin Dose 15 MG; Start 07/20/16 at 15:00 IV Flush (NS 10 ml) 10 ml PRN PRN IV IV PROTOCOL; Start 07/20/16 at 21:30 Diphenhydramine HCl (Benadryl) 50 mg QHS PRN IV INSOMNIA Last administered on 01:22; Admin Dose 50 MG; Start 07/21/16 at 18:30 Lactulose 20 gm 20 gm Q8 PO Last administered on 07/27/16 06:19; Admin Dose 20 GM; Start 07/23/16 at 14:00 Albumin Human 100 ml @ 100 mls/hr DAILY IV Last administered on 07/27/16 08:44 ; Admin Dose 100 MLS/HR; Start 07/24/16 at 09:00 Meropenem (Merrem 1 Gm/100 ml (Pmx)) 100 ml @ 200 mls/hr Q8 IVPB Last administered on 07/27/16 06:18; Admin Dose 200 MLS/HR; Start 07/26/16 at 06:00 Furosemide (Lasix) 20 mg DAILY PO Last administered on 07/27/16 08:42; Admin Dose 20 MG; Start 07/26/16 at 09:00 Levothyroxine Sodium (Synthroid) 175 mcg DAILY@06 PO Last administered on 06:19; Admin Dose 175 MCG; Start 07/26/16 at 06:00 Prednisone (Prednisone) 30 mg ONCE ONCE PO ; Start 07/28/16 at 09:00; Stop at 09:01 Prednisone (Prednisone) 20 mg ONCE ONCE PO ; Start 07/29/16 at 09:00; Stop at 09:01 Prednisone (Prednisone) 10 mg ONCE ONCE PO ; Start 07/30/16 at 09:00; Stop at 09:01 Hydroxyzine HCl (Atarax) 50 mg Q6 PRN PO ITCHING; Start 07/27/16 at 11:00 BECCA CALDERÓN MD July 27, 2016 11:47
--- NOTE | 2016-07-27 12:42 | CONS ---
Date/Time of Note Date/Time of Note DATE: 07/27/16 TIME: 12:34 Assessment/Plan Assessment/Plan Additional Assessment/Plan Abdominal pain/Constipation, improved Chronic pain syndrome Alcoholic Liver disease Hx of gastric bypass Hx of colonic ulcers Elevated CEA,19-9,125 UTI Plan: Monitor LFTs Continue with hemodynamic recommendation of repeat tumor markers in a few months to see if there is any trend or change. Advance diet as tolerated Further recommendations pending clinical course Patient seen in collaboration with Dr. Castro Consultation Date/Type/Reason Admit Date/Time Jul 18, 2016 at 18:02 Initial Consult Date 07/24/16 Type of Consultation: Gastroenterology Referring Provider: TRINIDAD GOODE 24 HR Interval Summary Free Text/Dictation Tolerating diet Denies abdominal pain Exam/Review of Systems Vital Signs Vitals Vital Signs Date Time Temp Pulse Resp B/P Pulse Ox O2 Delivery O2 Flow Rate FiO2 07/27/16 08:01 98.7 84 16 119/82 93 07/25/16 18:04 Room Air Intake and Output 07/26/16 07/26/16 07/27/16 15:00 23:00 07:00 Intake Total 100 ml 1060 ml 840 ml Output Total 500 ml Balance -400 ml 1060 ml 840 ml Exam Constitutional: alert, oriented, thin Psych: nl mood/affect Head: normocephalic Eyes: EOMI, nl conjunctiva, nl lids ENMT: nl external ears & nose, nl lips & teeth, nl nasal mucosa & septum Respiratory: clear to auscultation, normal air movement Cardiovascular: regular rate and rhythm Gastrointestinal: soft, nontender Musculoskeletal: nl extremities to inspection Neurological: ICU REGISTERED NURSE II-XII intact Results Result Diagram: 07/26/16 0537 07/26/16 0537 Medications Medications Current Medications Ondansetron HCl (Zofran Inj) 4 mg Q6H PRN IV NAUSEA AND/OR VOMITING Last administered on 07/22/16 15:15; Admin Dose 4 MG; Start 07/18/16 at 20:00 Acetaminophen (Tylenol Tab) 650 mg Q6H PRN PO PAIN LEVEL 1-3 OR FEVER Last administered on 07/23/16 05:39; Admin Dose 650 MG; Start 07/18/16 at 20:00 Docusate Sodium (Colace) 100 mg Q12H PRN PO CONSTIPATION Last administered on 21:58; Admin Dose 100 MG; Start 07/18/16 at 20:00 Magnesium Hydroxide (Milk Of Mag) 30 ml DAILY PRN PO CONSTIPATION Last administered on 07/25/16 04:43; Admin Dose 30 ML; Start 07/18/16 at 20:00 Sodium Biphosphate/ Sodium Phosphate (Fleet Enema) [address] CONSTIPATION; Start 07/18/16 at 20:00 Pantoprazole (Protonix Tab) 40 mg DAILY@06 PO Last administered on 07/27/16 06: 19; Admin Dose 40 MG; Start 07/19/16 at 06:00 Heparin Sodium (Porcine) (Heparin (5000 Units/0.5 ml)) 5,000 unit Q12 SC Last administered on 07/26/16 09:13; Admin Dose 5,000 UNIT; Start 07/18/16 at 21:00 Hydralazine HCl (Apresoline) 10 mg Q6H PRN IV ELEVATED BLOOD PRESSURE; Start at 20:00 Nitroglycerin (Nitroglycerin (Sl Tab) 0.4 Mg) 1 tab Q5M PRN SL ANGINA; Start at 20:00 Ascorbic Acid (Vitamin C) 500 mg DAILY PO Last administered on 07/27/16 08:43; Admin Dose 500 MG; Start 07/19/16 at 09:00 Montelukast Sodium (Singulair) 10 mg HS PO Last administered on 07/26/16 21:23 ; Admin Dose 10 MG; Start 07/18/16 at 21:00 Thiamine HCl (Vitamin B1) 100 mg DAILY PO Last administered on 07/27/16 08:43; Admin Dose 100 MG; Start 07/19/16 at 09:00 Triamcinolone Acetonide (Kenalog 0.1% Cr) 1 applic BID TOP Last administered on 07/20/16 13:00; Admin Dose 1 APPLIC; Start 07/18/16 at 21:00; Status Future Hold Venlafaxine HCl (Effexor) 150 mg DAILY PO Last administered on 07/27/16 08:40; Admin Dose 150 MG; Start 07/19/16 at 09:00 Zinc Sulfate (Zinc Sulfate) 220 mg DAILY PO Last administered on 07/27/16 08:43 ; Admin Dose 220 MG; Start 07/19/16 at 09:00 Diphenhydramine HCl (Benadryl) 25 mg Q6H PRN PO ITCHING; Start 07/19/16 at 15: 00 Gabapentin (Neurontin) 100 mg BID PO Last administered on 07/27/16 08:42; Admin Dose 100 MG; Start 07/20/16 at 09:00 Non-Formulary Medication . BID TOP Last administered on 07/26/16 21:25; Admin Dose 1 EA; Start 07/20/16 at 21:00 Oxycodone HCl (Oxycontin) 30 mg BID PO Last administered on 07/27/16 08:40; Admin Dose 30 MG; Start 07/20/16 at 21:00 Oxycodone HCl (Roxicodone) 15 mg Q6H PRN PO PAIN LEVEL 4-6 Last administered on 07/27/16 06:18; Admin Dose 15 MG; Start 07/20/16 at 15:00 IV Flush (NS 10 ml) 10 ml PRN PRN IV IV PROTOCOL; Start 07/20/16 at 21:30 Diphenhydramine HCl (Benadryl) 50 mg QHS PRN IV INSOMNIA Last administered on 01:22; Admin Dose 50 MG; Start 07/21/16 at 18:30 Lactulose 20 gm 20 gm Q8 PO Last administered on 07/27/16 06:19; Admin Dose 20 GM; Start 07/23/16 at 14:00 Albumin Human 100 ml @ 100 mls/hr DAILY IV Last administered on 07/27/16 08:44 ; Admin Dose 100 MLS/HR; Start 07/24/16 at 09:00 Meropenem (Merrem 1 Gm/100 ml (Pmx)) 100 ml @ 200 mls/hr Q8 IVPB Last administered on 07/27/16 06:18; Admin Dose 200 MLS/HR; Start 07/26/16 at 06:00 Furosemide (Lasix) 20 mg DAILY PO Last administered on 07/27/16 08:42; Admin Dose 20 MG; Start 07/26/16 at 09:00 Levothyroxine Sodium (Synthroid) 175 mcg DAILY@06 PO Last administered on 06:19; Admin Dose 175 MCG; Start 07/26/16 at 06:00 Prednisone (Prednisone) 30 mg ONCE ONCE PO ; Start 07/28/16 at 09:00; Stop at 09:01 Prednisone (Prednisone) 20 mg ONCE ONCE PO ; Start 07/29/16 at 09:00; Stop at 09:01 Prednisone (Prednisone) 10 mg ONCE ONCE PO ; Start 07/30/16 at 09:00; Stop at 09:01 Hydroxyzine HCl (Atarax) 50 mg Q6 PRN PO ITCHING Last administered on 07/27/16t 11:47; Admin Dose 50 MG; Start 07/27/16 at 11:00 BRANDI LINDSEY July 27, 2016 12:42
[2016-07-27] MEDS ORDERED: GABA100C14 PO (13:28)
[2016-07-27] MEDS ORDERED: Lactulose PO (13:28)
[2016-07-27] MEDS ORDERED: CLOB60CR2 TOP (13:28)
[2016-07-27] MEDS ORDERED: LAS20 PO (13:28)
[2016-07-27] MEDS ORDERED: PANT40TA4 PO (13:28)
[2016-07-27] MEDS ORDERED: HYDR-842 PO (13:28)
[2016-07-27] MEDS ORDERED: POTA20LI5 PO (13:29)
[2016-07-27] MEDS ORDERED: BEN25 PO (13:30)
--- NOTE | 2016-07-27 13:33 | PDOCDIS ---
Discharge Instructions DIAGNOSIS Discharge Diagnosis: Weakness and swelling CONDITION Patient Condition: Stable HOME CARE INSTRUCTIONS: Special Diet: 2 gm Na ACTIVITY: Activity Restrictions: Slowly Increase Activity Rest between Activity FOLLOW UP/APPOINTMENTS Appointments 1. Call Dr. Lerma's office for follow-up. He can help with your cancer or blood issues. Name, Degree: Cornell Lerma MD Specialty: Oncology, Hematology Comments: Office Address: [address] [place] [address] [address] [place] [address] Office Office 2. Followup with your primary doctor within the next 1-2 weeks. If you don't have one please let someone know, we can give you resources that may help you pick one. You may call Dr Murray Hartman's office. he's accepting new patients Name, Degree: Murray Hartman MD Specialty: Internal Medicine Comments: Office Address: [address] [place] [address] [address] [place] [address] Office Office You may also call your insurance company to assign one to you. Review your medication list with your nurse before leaving and if you need new prescriptions please let your nurse know. I may have made changes to your home medications or given you new prescriptions , please let your primary doctor know as well. Stay compliant with your medications and report any side effects to your PCP or pharmacist. Return to the ER if you have any concerns and cannot reach your doctors or call your insurance company, they usually have a nurse that can help you. TRINIDAD GOODE July 27, 2016 13:33
[2016-07-27] MEDS ORDERED: MULTI PO (13:36)
[2016-07-27] MEDS ORDERED: PRED10TA PO (13:36)
[2016-07-27] MEDS ORDERED: OXYC10TA63 PO (13:37)
--- NOTE | 2016-07-27 13:48 | DS ---
Date/Time of Note Date/Time of Note DATE: 07/27/16 TIME: 13:41 Discharge Summary Admission/Discharge Info Admit Date/Time Jul 18, 2016 at 18:02 Discharge Date/Time 07/27/16 . Final Diagnosis 45-year-old female coming in with lower extremity swelling, skin rash and weakness. 1. Weakness and lower extremity swelling: resolved 2. Rash : ?Vasculitis- improved 3. Opioid dependency - appreciate pain/palliative consult - pain meds per their rec's 4. S/p gastric bypass. Continue proton pump inhibitor. 5. Chronic depression. : stable 6. Alcoholic liver disease with lower extremity swelling. 7. ESBL UTI : s/p treatment 8. Weight loss + elevated CA 19-9, CA 125. and CEA : these could be related to Gastric bypass surgery? 9. Colonic ulcerations on last colonoscopy, resolved on colonoscopy 10. Episodes of confusion with elevated ammonia 11. Hyponatremia: 2/2 fluid overload: improved 12. Constipation, ?OIC : resolved 13. Noncompliance . Patient Condition: Stable Consults * K Devan: Nephrology * Lenin Castro: GI * L Hemant: Pain mgt * S Maria Guadalupe: Oncology . Procedures 1. Colonoscopy 07/25/2016 suboptimal preparation no gross lesions moderate sized internal hemorrhoids 2. PROCEDURE: Ultrasound guidance for placement of needle in left upper extremity vein. CLINICAL INDICATION: Venous access. TECHNIQUE: Limited sonography of the left upper extremity was performed. Ultrasound images were recorded and stored in the patient's medical record. COMPARISON: None. FINDINGS: The ultrasound images demonstrate a patent left upper extremity vein. The PICC line was inserted by the PICC line nurse. IMPRESSION: 1. Ultrasound guidance for a needle placement in a left upper extremity vein. 2. The left upper extremity vein is patent. RPTAT: QQ .Abebe Goel MD, Date Time Electronically viewed and signed by .Abebe Goel MD, MD on 07/21/2016 10:44 .R/ CC: TOSIN ENCARNACION. 3. PROCEDURE: Left upper extremity venous ultrasound CLINICAL INDICATION: Left arm pain and swelling. Deep venous thrombosis. TECHNIQUE: Ricci scale, color doppler, spectral doppler ultrasound imaging of the venous system of the left upper extremity. Augmentation maneuvers were utilized. COMPARISON: No prior studies are available for comparison. FINDINGS: LEFT: Internal jugular vein: Patent. Subclavian vein: Patent. Axillary vein: Patent. Brachial vein: Patent. Basilic vein: Patent. Cephalic vein: Patent. Radial vein: Patent. Ulnar vein: Patent. IMPRESSION: No evidence of a deep vein thrombosis involving the left upper extremity. RPTAT: AADD .Tim Armijo MD, Date Time Electronically viewed and signed by .Tim Armijo MD, MD on 07/20/2016 10:10 PROCEDURE: US Pelvis. CLINICAL INDICATION: Pelvic pain. TECHNIQUE: The pelvis was evaluated with transabdominal and transvaginal sonography in the axial and sagittal planes. COMPARISON: No prior study is available for comparison. FINDINGS: The uterus measures 5.7 x 3.0 x 3.4 cm. There is no uterine enlargement or mass. The endometrium is not well seen. The ovaries are not visualized. There is a small amount of free fluid. A Bojorquez catheter is present in the bladder. There is no pelvic mass visualized. IMPRESSION: 1. Normal appearance of the uterus. 2. Endometrium and ovaries not visualized. 3. Small amount of free fluid, likely physiologic. 4. Bojorquez catheter in the bladder. RPTAT: QQ .Abebe Goel MD, MD Date Time Electronically viewed and signed by .Abebe Goel MD, on 07/23/2016 17:12 PROCEDURE: MR Brain without contrast. CLINICAL INDICATION: Altered level of consciousness. Visual disturbance. TECHNIQUE: MRI brain without contrast was performed. Examination was performed on the high field MRI with the following sequences: Coronal gradient echo, sagittal T1-weighted, fast spin echo axial T2-weighted, axial FLAIR, axial diffusion-weighted images, and axial ADC map images. COMPARISON: CT scan of the brain dated 01/06/2016 which was normal. FINDINGS: The ventricles and sulci are symmetric and normal. The ricci-white matter differentiation is preserved. No abnormal intra-axial or extra-axial fluid collection or mass lesion is identified. No hemorrhage or midline shift is seen. The clivus, sella turcica, corpus callosum, and midline structures are all unremarkable. The brainstem and posterior fossa structures are unremarkable. The cerebellopontine angle regions are clear. No skull base abnormality is seen. The diffusion weighted images demonstrate no evidence of infarct. The surrounding bony calvarium and soft tissue scalp is unremarkable. The orbits, as visualized, are unremarkable. The paranasal sinuses are clear IMPRESSION: 1. Normal noncontrast MRI of the brain. RPTAT: QQ .Abebe Goel MD, MD Date Time Electronically viewed and signed by .Abebe Goel MD, MD on 07/27/2016 07:40 Hospital Course 45-year-old unfortunate female with multiple comorbidities who came in because of weakness and rash primarily. She was found to have ESBL UTI which likely was the source of her weakness and her rash responded to steroid therapy. The cause of it however is still unclear. She is recommended to follow-up outpatient with dermatology. However her hospitalization was complicated by a history of elevated tumor markers for which the source was unclear. She was worked up with CT of the chest abdomen and pelvis with IV contrast which displayed no masses or tumor source. She was seen by gastroenterology and underwent a colonoscopy that was also unremarkable. Except for hemorrhoids. She has had a previous colonoscopy that was concerning for colonic ulcers and possible inflammatory bowel disease, but this was not seen on the repeat colonoscopy. She also had an MRI of the brain that also showed no acute abnormalities. She was seen by physical therapy, and the patient did well in terms of regaining her strength I was able to ambulate around the house multiple times prior to being discharged on her own. At this time the patient has been assessed by myself and is stable for discharge. Of note is that she also has a history of opioid dependence and chronic pain and she was managed for this by Pain management. . Home Meds Active Scripts Oxycodone Hcl* (Oxycontin*) 10 Mg Tab.sr.12h, 30 MG PO BID for 30 Days Prov:MONICA GOODEAMBROSIO Rhoades07/27/16 Prednisone (Prednisone) 10 Mg Tab, 10 MG PO DAILY, #21 TAB Take 6 tablets tomorrow July 28, 2016 Take 5 tablets on July 29, 2016 Take 4 tablets on July 30, 2016 Take 3 tablets on July 31, 2016 Take 2 tablets on August 01, 2016 Take 1 tablet on August 02, 2016 Then stop. Prov:RUSSELTRINIDAD Rhoades07/27/16 Multivitamins* (Theragran*) 1 Tab Tab, 1 TAB PO DAILY for 30 Days, TAB Prov:MONICA GOODEAMBROSIO 07/27/16 Diphenhydramine Hcl* (Benadryl*) 25 Mg Cap, 25 MG PO Q6H Y for ITCHING, #30 CAP Prov:TRINIDAD GOODE07/27/16 Potassium Chloride* (Potassium Chloride*) 20 Meq/15 Ml Liquid, 10 MEQ PO DAILY for 30 Days, ML Prov:TRINIDAD GOODE 07/27/16 Clobetasol Propionate* (Clobetasol Propionate*) 60 Gm Cream.gm., 1 APPLIC TOP BID, #1 TUB Prov:RUSSELTRINIDAD 07/27/16 Pantoprazole* (Pantoprazole*) 40 Mg Tablet.dr, 40 MG PO DAILY@06 for 30 Days, 2 Refills Prov:TRINIDAD GOODE 07/27/16 [Lactulose] 20 GM/30 ML SOLN No Conflict Check, 20 GM PO Q8 for 30 Days, 4 Refills Prov:PIEDAD GOODEO M. 07/27/16 Furosemide (Lasix) 20 Mg Tab, 20 MG PO DAILY for 30 Days, TAB Prov:PIEDAD GOODEO M. 07/27/16 Hydroxyzine Hcl* (Atarax*) 25 Mg Tab, 50 MG PO Q6 Y for ITCHING, #30 TAB 1 Refill Prov:PIEDAD GOODEO M. 07/27/16 Gabapentin* (Gabapentin*) 100 Mg Capsule, 100 MG PO BID for 30 Days, CAP 2 Refills Prov:PIEDAD GOODEO M. 07/27/16 Venlafaxine Hcl* (Venlafaxine Hcl*) 75 Mg Tablet, 150 MG PO DAILY for 30 Days, TAB Prov:CHENCHO BANUELOS NP 12/30/15 Montelukast Sodium* (Montelukast Sodium*) 10 Mg Tablet, 10 MG PO HS for 30 Days , TAB Prov:CHENCHO BANUELOS V. [employer] 12/30/15 Levothyroxine Sodium* (Levoxyl*) 175 Mcg Tablet, 175 MCG PO DAILY@06 for 30 Days , TAB Prov:CHENCHO BANUELOS V. [employer] SCI[employer]IST 12/30/15 [Diphenhydramine 1%/Zinc Cr] 1 APPLIC CR No Conflict Check, 1 APPLIC TOP Q6 for 30 Days Prov:CHENCHO BANUELOS V. [employer] SCI[employer]IST 12/30/15 Reported Medications Ipratropium-Albuterol (Ipratropium-Albuterol) 0.5-3 Mg/3 Ml Ampul.neb, 3 ML INHALATION Q4 Y for SHORTNESS OF BREATH, #30 VIAL 01/27/16 Thiamine* (Thiamine*) 100 Mg Tablet, 100 MG PO DAILY, TAB 01/27/16 Ascorbic Acid* (Vitamin C*) 500 Mg Capsule.sa, 500 MG PO DAILY, CAP 01/06/16 Zinc Sulfate* (Zinc Sulfate*) 220 Mg Tablet, 220 MG PO DAILY, TAB 01/06/16 Discontinued Scripts Gabapentin* (Neurontin*) 100 Mg Capsule, 100 MG PO BID Y for PAIN, #1 CAP Prov:EYAD BECERRA MD 01/24/16 Furosemide* (Lasix*) 40 Mg Tablet, 40 MG PO DAILY for 30 Days, TAB Prov:CHENCHO BANUELOS NP 12/30/15 Triamcinolone Acetonide* (Kenalog*) 0.1%-15GM Cr, 1 APPLIC TOP BID for 30 Days Prov:CHENCHO BANUELOS NP 12/30/15 Follow-up Plan * Patient needs close outpatient follow-up with the following doctors: 1. Oncology Dr. Cornell Lerma 2. Primary care doctor to get a referral to dermatology for rash. 3. Dr. Dick Hartman for nephrology. TRINIDAD GOODE July 27, 2016 13:48
--- NOTE | 2016-07-27 16:09 | GILP ---
DATE OF PROCEDURE: 07/25/2016 PROCEDURE: Colonoscopy to cecum. BRIEF HISTORY AND INDICATIONS: The patient is being evaluated for colorectal cancer screening. PREMEDICATION: Monitored anesthesia care by anesthesiologist. SURGEON: Thuy Castro MD INSTRUMENT USED: Olympus colonoscope. PREPARATION: Suboptimal. TECHNIQUE: After informed consent, with the patient/relatives understanding the procedure, its indic ations potential risks and complications, including but not limited to: allergic reaction, bleeding, perforation, infection, missed lesions and after all pertinent questions were answered to the patie nt's satisfaction, the patient/relatives signed the witnessed informed consent. Following this, premedication was administered slowly IV push by under careful cardiovascular and re spiratory monitoring with pulse oximetry, automatic blood pressure and wooden furniture polisher. Once the sedativ e effect was achieved, the patient was placed in the left lateral decubitus position, digital rectal examination was performed. The colonoscope was then introduced and advanced under visual control th roughout all segments of the colon including: the rectum, sigmoid, descending colon, splenic flexure , transverse colon, hepatic flexure, ascending colon and finally reaching the cecum which was clearl y identified by transillumination, finger indentation and the ileocecal valve. Careful examination o f the mucosa of the lower gastrointestinal tract both on insertion as well as withdrawal of the inst rument disclosed the following findings: Rectal Examination: No evidence of perirectal disease, no masses. Colonic Mucosa: The colonic mucosa is partially obscured, approximately 30 to 40% due to suboptimal preparation. No gross lesions are identified. The ileocecal valve is clearly identified and appea rs unremarkable. The instrument was then withdrawn, and on withdrawal of the instrument, no additional abnormalities were noted with the exception of moderate sized internal hemorrhoids. The patient tolerated the pro cedure well and was transferred out of the Endoscopy Suite awake and in good condition to continue r ecovery under observation. IMPRESSION: 1. Suboptimal preparation with 30% of the colonic mucosa obscured. 2. No gross lesions identified. 3. Moderate sized internal hemorrhoids. PLAN: Advance diet and reevaluate in 6 to 12 months. Dictated By: THUY CASTRO MS/PAUL Conf#: [id number] DID#: [id number]
[2016-07-28] MEDS ORDERED: predniSONE 10 MG TAB PO ONE (09:00)
[2016-07-29] MEDS ORDERED: predniSONE 20 MG TAB PO ONE (09:00)
[2016-07-30] MEDS ORDERED: predniSONE 10 MG TAB PO ONE (09:00)
== END 2016-07-27 15:29 | disposition home or self-care (01) | DRG 698 ==
LOC: E/R 14:28 → PP2 18:02
PROVIDERS: ADMIT Hospitalist; ATTEND Hospitalist
PROC: 02HV33Z Insertion of Infusion Device into Superior Vena Cava, Percutaneous Approach (ICD-10-PCS; principal; 2016-07-20)
PROC: 0DJD8ZZ Inspection of Lower Intestinal Tract, Via Natural or Artificial Opening Endoscopic (ICD-10-PCS; 2016-07-25)
DX: N04.9 Nephrotic syndrome with unspecified morphologic changes (principal); E43 Unspecified severe protein-calorie malnutrition; N17.9 Acute kidney failure, unspecified; E87.1 Hypo-osmolality and hyponatremia; N30.00 Acute cystitis without hematuria; F11.20 Opioid dependence, uncomplicated; K70.9 Alcoholic liver disease, unspecified; G89.29 Other chronic pain; R21 Rash and other nonspecific skin eruption; E03.9 Hypothyroidism, unspecified; Z98.84 Bariatric surgery status; Z87.891 Personal history of nicotine dependence; F32.9 Major depressive disorder, single episode, unspecified; K21.9 Gastro-esophageal reflux disease without esophagitis; T38.1X6A Underdosing of thyroid hormones and substitutes, initial encounter; R97.0 Elevated carcinoembryonic antigen [CEA]; R97.1 Elevated cancer antigen 125 [CA 125]; B96.20 Unspecified Escherichia coli [E. coli] as the cause of diseases classified elsewhere; Z16.12 Extended spectrum beta lactamase (ESBL) resistance; R63.4 Abnormal weight loss; Z68.20 Body mass index [BMI] 20.0-20.9, adult; M25.512 Pain in left shoulder; M25.511 Pain in right shoulder; M54.9 Dorsalgia, unspecified; R41.82 Altered mental status, unspecified; Z66 Do not resuscitate
CPT/HCPCS: 36415; 36569; 70551; 71010; 76830; 76856; 76937; 80048; 80053; 80061; 81001; 81003; 82105; 82140; 82378; 82607; 82728; 82746; 83036; 83540; 83690; 83735; 84100; 84439; 84443; 84484; 85025; 86038; 86226; 86300; 86301; 86304; 86305; 86430; 86800; 87081; 87086; 93005; 93971; 96365; 96366; 96375; 96376; 97110; 97116; 97162; 97530; J1940; J0743; J0744; J1170; J1200; J1644; J2185; J2270; J2405; J2920; J3475; J7512; P9047

== ENCOUNTER 2016-08-28 22:59 | Inpatient (IN) | payer OTHER ==
[~2016-08-28] VITALS: Ht 172.7 cm; Wt 51.8 kg
[~2016-08-28 22:59] MED LIST changes: +BEN25 PO; +CLOB60CR2 TOP; -ERGO500014 PO; -FER325 PO; -FOLI-49 PO; -FURO-109 PO; -GABA100C PO; +GABA100C14 PO; +HYDR-842 PO; -HYDR-906 PO; -KENC1 TOP; -LACT20SO12 GTB; +LAS20 PO; +Lactulose PO; +OXYC10TA63 PO; -OXYC20TA41 PO; +POTA20LI5 PO; +PRED10TA PO; -RIFA550T4 PO; -TRAZ50TA18 PO
[2016-08-28 23:49] VITALS: Ht 172.7 cm; Wt 51.8 kg
[2016-08-29 00:19] VITALS: BP 108/58; RESP 16
[2016-08-29] MEDS ORDERED: VANCOMYCIN IV PER PHARMACY XX SCH (00:30)
[2016-08-29] MEDS ORDERED: ONDANSETRON 4 MG INJ IV PRN (00:30)
[2016-08-29] MEDS ORDERED: VANCOMYCIN 1 GM in NS 250 ML IVPB ONE (01:00)
[2016-08-29] MEDS: oxyCODONE (CR) 10 MG TAB [oxyCONTIN] PO SCH ×3 (01:18→13:19)
[2016-08-29 01:52] LABS: ADD SCAN DIFF NO
[2016-08-29 01:54] LABS: BASOPHILS % 0.3 % (0.0-2.0); EOSINOPHILS % 0.3 % (0.0-7.0); HEMATOCRIT 29.2 % (37.0-47.0); HEMOGLOBIN 9.4 g/dl (12.0-16.0); LYMPHOCYTES # 2.6 10^3/ul (0.8-2.9); LYMPHOCYTES % 38.5 % (15.0-51.0); MEAN CORPUSCULAR HGB CONC 32.2 g/dl (32.0-37.0); MEAN CORPUSCULAR VOLUME 93.3 fl (82.0-101.0); MEAN PLATELET VOLUME 10.2 fl (7.4-10.4); MONOCYTE # 0.6 10^3/ul (0.3-0.9); MONOCYTES % 9.4 % (0.0-11.0); NEUTROPHIL # 3.4 10^3/ul (1.6-7.5); NEUTROPHILS % 51.2 % (39.0-77.0); PLATELET COUNT 325 10^3/UL (140-415); RED BLOOD COUNT 3.13 10^6/ul (4.20-5.40); RED CELL DISTRIBUTION WIDTH 18.2 % (11.5-14.5); WHITE BLOOD COUNT 6.6 10^3/ul (4.8-10.8)
[2016-08-29 02:20] LABS: ALBUMIN 2.5 g/dl (3.3-4.9); BILIRUBIN,DIRECT 0.1 mg/dl (0.00-0.20); BILIRUBIN,INDIRECT 0.9 mg/dl (0-1.1); CALCIUM 7.7 mg/dl (8.4-10.2); CREATININE 0.58 mg/dl (0.44-1.00); MAGNESIUM 1.6 mg/dl (1.7-2.5); PHOSPHORUS 2.5 mg/dl (2.5-4.9); POTASSIUM 3.6 mmol/L (3.5-5.1)
[2016-08-29] MEDS: morphine 2 MG INJ IV PRN ×4 (02:26→16:03)
[2016-08-29] MEDS: LEVOTHYROXINE 150 MCG TAB PO SCH (06:51)
[2016-08-29] MEDS ORDERED: FURO-110 PO (07:07)
[2016-08-29] MEDS ORDERED: TOLT4CAP PO (07:09)
[2016-08-29 07:48] VITALS: BP 107/60; RESP 19
[2016-08-29] MEDS ORDERED: morphine (ER) 15 MG TAB PO SCH (09:00)
[2016-08-29] MEDS ORDERED: VANCOMYCIN 750 MG in SOD CHLORIDE 0.9% 150 ML IVPB SCH (09:00)
[2016-08-29] MEDS: FOLIC ACID 1 MG TAB PO SCH (09:50)
[2016-08-29] MEDS: MULTIVITAMINS/MINERALS TAB PO SCH (09:50)
[2016-08-29] MEDS: THIAMINE 100 MG TAB PO SCH (09:50)
[2016-08-29] MEDS: FAMOTIDINE 20 MG TAB PO SCH (09:50)
[2016-08-29] MEDS: GABAPENTIN 300 MG CAP PO SCH ×3 (09:50→21:04)
[2016-08-29] MEDS: VENLAFAXINE 75 MG TABLET PO SCH ×2 (09:55→21:04)
[2016-08-29] MEDS: HEPARIN 5,000 UNIT/0.5 ML VIAL SC SCH ×2 (10:06→22:17)
[2016-08-29] MEDS ORDERED: MAGNESIUM SULFATE 1 GM/D5W 100 ML IVPB ONE (11:30)
[2016-08-29 12:32] LABS: COMPLEMENT C3 50 mg/dl (88-165); COMPLEMENT C4 25 mg/dl (14-44)
[2016-08-29] MEDS: METHYLPREDNISOLONE 125 MG INJ IV SCH ×2 (13:19→22:09)
[2016-08-29] MEDS: GENTAMICIN 0.3% 5 ML OPH BOTH EYES SCH ×2 (13:20→21:07)
[2016-08-29] MEDS: FUROSEMIDE 40 MG INJ IV SCH ×2 (13:39→18:08)
[2016-08-29] MEDS: AZTREONAM 2 GM in SOD CHLORIDE 0.9% 100 ML IVPB SCH ×2 (13:49→21:07)
[2016-08-29] MEDS ORDERED: MULTIVIT/MIN/FOLATE/IRON/PREN TAB PO SCH (14:30)
[2016-08-29] MEDS: LACTOBACILLUS RHAMNOSUS CAP PO SCH ×2 (18:08→21:05)
[2016-08-29] MEDS: MULTIVIT/MIN/FOLATE/IRON/PREN TAB PO SCH (18:08)
[2016-08-29 18:35] LABS: ADD UMIC NO; UR BILIRUBIN (Dip) NEGATIVE (NEGATIVE); UR BLOOD (Dip) NEGATIVE (NEGATIVE); UR CLARITY CLEAR (CLEAR); UR COLOR LT. YELLOW (YELLOW); UR GLUCOSE (Dip) NEGATIVE (NEGATIVE); UR KETONES (Dip) NEGATIVE (NEGATIVE); UR LEUKOCYTE ESTERASE (Dip) NEGATIVE (NEGATIVE); UR NITRITE (Dip) NEGATIVE (NEGATIVE); UR TOTAL PROTEIN (Dip) NEGATIVE (NEGATIVE); UR UROBILINOGEN (Dip) 0.2 E.U./dL (0.1-1.0)
[2016-08-29] MEDS: morphine 4 MG/ML VIAL IV PRN ×2 (19:02→22:10)
[2016-08-29 20:10] VITALS: BP 126/76; RESP 18
[2016-08-29] MEDS: traZODone 50 MG TAB PO SCH (21:00)
[2016-08-29] MEDS: MONTELUKAST 10 MG TAB PO SCH (21:04)
[2016-08-29] MEDS: morphine (ER) 30 MG TAB PO SCH ×2 (21:04→21:49)
[2016-08-29] MEDS: FISH OIL 1,000 MG CAP PO SCH (21:05)
--- NOTE | 2016-08-29 23:11 | CONS ---
DATE OF ADMISSION: 08/28/2016 DATE OF CONSULTATION: 08/29/2016 TYPE OF CONSULTATION: Infectious Disease. REASON FOR CONSULTATION: Antibiotic management. HISTORY OF PRESENT ILLNESS: Dawna Hung is a 46-year-old white female who comes in now with diffuse r jesu and is being seen for antibiotic management. She was last hospitalized in June of 2016. At th at time, she had also lower extremity swelling and body rash. Her past problems include: 1. Chronic pain syndrome. 2. Hypothyroidism. 3. Status post gastric bypass surgery in the past. 4. Pain and opioid dependence. 5. Depression. 6. GERD. 7. Prior history of diarrhea. 8. Alcoholic liver disease and asthma. At that time, she presented with swelling of both of her upper and lower extremities. She HAS MULTI PLE ALLERGIES. At the present time, she comes in complaining of rash on both of her legs but with t he left leg much worse. She is also edematous and was given some diuretics for that. PAST MEDICAL HISTORY: Operations: Status post gastric bypass, status post cholecystectomy, status post SVT with ablation. FAMILY HISTORY: Positive for diabetes. SOCIAL HISTORY: She was a heavy alcohol abuser. Former smoker. No IV drug abuse. ALLERGIES: 1. PENICILLIN. 2. SULFA. 3. CEFACLOR. 3. PROCHLORPERAZINE. REVIEW OF SYSTEMS: Otherwise is noncontributory. PHYSICAL EXAMINATION: GENERAL: The patient is a thin female who looks older than her stated age, in no acute distress. VITAL SIGNS: Stable. She is afebrile. SKIN: She has significant rash. Cellulitis on the left lower extremity going all the way up to her thigh and groin, and she has cellulitis in the right lower extremity. There is also some evidence of loosening of the skin, maybe some exfoliation. HEENT: Within normal limits. NECK: Supple. LYMPH NODES: None palpable. CHEST: Decreased breath sounds at the bases. HEART: Without murmur or gallop. ABDOMEN: Soft, nontender, without organosplenomegaly or masses. EXTREMITIES: As noted, she has edema of the lower extremities with diffuse erythematous rash with b lanching. During her last hospitalization, question whether she had vasculitis as the result of rash. She was opioid dependent. She had a history of gastric bypass, chronic depression. She also had ESBL UTI during her last hospitalization. Currently, we have no other history to go on. She had a laparosco pic ventral hernia repair in the past. LABORATORY DATA: Her white count was 6.6, H and H 9.4 and 29.2, platelet count 325,000. BUN and cr eatinine was 12/0.58. Urine was negative. Complement C3 was 50, C4 was 25. She was started on vancomycin and aztreonam because of her allergies and also on methylprednisolone 60 mg q.8. I would also wonder as to whether pemphigus has been worked up in this particular patient. Vasculit is certainly is a possibility or probability. I will dictate my findings to the hospitalist. Dictated By: PIPPA HUNTLEY MD, JD/PAUL Conf#: [id number] DID#: [id number]
[2016-08-30] MEDS: VANCOMYCIN 1 GM in NS 250 ML IVPB SCH (00:41)
[2016-08-30] MEDS: morphine 4 MG/ML VIAL IV PRN ×7 (01:12→21:58)
[2016-08-30] MEDS: METHYLPREDNISOLONE 125 MG INJ IV SCH ×3 (05:19→21:56)
[2016-08-30] MEDS: FUROSEMIDE 40 MG INJ IV SCH ×2 (05:19→18:05)
[2016-08-30] MEDS: LEVOTHYROXINE 150 MCG TAB PO SCH (05:19)
[2016-08-30 05:30] LABS: ADD SCAN DIFF NO
[2016-08-30 06:11] LABS: CALCIUM 7.9 mg/dl (8.4-10.2); CREATININE 0.59 mg/dl (0.44-1.00); POTASSIUM 4.7 mmol/L (3.5-5.1)
[2016-08-30 06:17] LABS: MAGNESIUM 1.6 mg/dl (1.7-2.5); PHOSPHORUS 3.3 mg/dl (2.5-4.9)
[2016-08-30 06:37] LABS: HEMATOCRIT 31.1 % (37.0-47.0); HEMOGLOBIN 10.2 g/dl (12.0-16.0); LYMPHOCYTES # 0.7 10^3/ul (0.8-2.9); LYMPHOCYTES % 19.2 % (15.0-51.0); MEAN CORPUSCULAR HEMOGLOBIN 30.4 pg (29.0-33.0); MEAN CORPUSCULAR HGB CONC 32.8 g/dl (32.0-37.0); MEAN CORPUSCULAR VOLUME 92.6 fl (82.0-101.0); MEAN PLATELET VOLUME 10.6 fl (7.4-10.4); MONOCYTE # 0.1 10^3/ul (0.3-0.9); MONOCYTES % 2.4 % (0.0-11.0); NEUTROPHIL # 2.6 10^3/ul (1.6-7.5); NEUTROPHILS % 78.1 % (39.0-77.0); PLATELET COUNT 278 10^3/UL (140-415); RED BLOOD COUNT 3.36 10^6/ul (4.20-5.40); RED CELL DISTRIBUTION WIDTH 17.6 % (11.5-14.5); WHITE BLOOD COUNT 3.4 10^3/ul (4.8-10.8)
[2016-08-30 08:21] VITALS: BP 128/80; RESP 16
[2016-08-30] MEDS: FISH OIL 1,000 MG CAP PO SCH ×2 (09:00→21:00)
[2016-08-30] MEDS: AZTREONAM 2 GM in SOD CHLORIDE 0.9% 100 ML IVPB SCH ×2 (09:02→22:35)
[2016-08-30] MEDS: LACTOBACILLUS RHAMNOSUS CAP PO SCH ×2 (09:04→21:56)
[2016-08-30] MEDS: GABAPENTIN 300 MG CAP PO SCH ×3 (09:04→21:57)
[2016-08-30] MEDS: MULTIVIT/MIN/FOLATE/IRON/PREN TAB PO SCH (09:05)
[2016-08-30] MEDS: FAMOTIDINE 20 MG TAB PO SCH (09:05)
[2016-08-30] MEDS: VENLAFAXINE 75 MG TABLET PO SCH ×2 (09:05→21:57)
[2016-08-30] MEDS: THIAMINE 100 MG TAB PO SCH (09:05)
[2016-08-30] MEDS: MULTIVITAMINS/MINERALS TAB PO SCH (09:05)
[2016-08-30] MEDS: FOLIC ACID 1 MG TAB PO SCH (09:06)
[2016-08-30] MEDS: morphine (ER) 30 MG TAB PO SCH ×2 (09:07→21:56)
[2016-08-30] MEDS: GENTAMICIN 0.3% 5 ML OPH BOTH EYES SCH ×2 (09:07→21:55)
[2016-08-30] MEDS: HEPARIN 5,000 UNIT/0.5 ML VIAL SC SCH ×2 (09:26→22:20)
[2016-08-30] MEDS ORDERED: MAGNESIUM SULFATE 1 GM/D5W 100 ML IVPB ONE (12:00)
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
[2016-08-30 12:55] LABS: ANA SCREEN NEGATIVE (NEGATIVE)
[2016-08-30] MEDS: FLUTICASONE 0.05% 16 GM NAS SPRAY NASAL SCH (13:52)
--- NOTE | 2016-08-30 16:13 | PN ---
DATE: 08/30/2016 INFECTIOUS DISEASE PROGRESS NOTE SUBJECTIVE: No acute changes. The patient is alert, looks comfortable. No fevers. WBC 3.4, platelets 278, BUN 12, creatinine 0.59. MICROBIOLOGY: Cultures remain negative. ANTIMICROBIALS: The patient is on vancomycin and aztreonam. ALLERGIES: 1. PENICILLIN. 2. SULFA. 3. CEFACLOR. PHYSICAL EXAMINATION: GENERAL: This is a cachectic, well-developed, middle-aged woman, who is alert, in no distress. HEENT: Head atraumatic, normocephalic. Sclerae anicteric. Buccal mucosa pink. NECK: Supple. CHEST: Chest rise is symmetrical. Breath sounds clear. HEART: S1, S2. ABDOMEN: Soft. Bowel tones present. EXTREMITIES: With bilateral edema, erythema, left lower extremity more than right, with multiple lesions and peeling skin peeling, mostly on the soles and palms. ASSESSMENT: 1. Lower extremity cellulitis, left more than right, with some peeling of the skin. Rule out pemphigoid disease. 2. History of ETOH abuse. 3. History of recurrent sepsis, urinary tract infection, pneumonia. 4. Cachexia and chronic pain syndrome. 5. Alcoholic liver cirrhosis. 6. History of gastric bypass surgery in the past. PLAN: The patient remains stable, overall improving. Continue the present care. Continue on the current antibiotics. Pain management as per primary team. Consider skin bx Dictated By: SAMEER ESQUEDA OCEAN LIFEGUARD SPECIALIST for [facility]/PAUL Conf#: [id number] DID#: [id number] MILLY
[2016-08-30 19:48] VITALS: BP 143/95; RESP 18
[2016-08-30] MEDS: traZODone 50 MG TAB PO SCH (21:00)
[2016-08-30] MEDS: MONTELUKAST 10 MG TAB PO SCH (21:56)
[2016-08-31] MEDS: morphine 4 MG/ML VIAL IV PRN ×7 (00:42→21:13)
[2016-08-31] MEDS: VANCOMYCIN 1 GM in NS 250 ML IVPB SCH (00:48)
[2016-08-31] MEDS ORDERED: VITAMIN A & D 5 GM OINT PACKET TOP ONE (01:42)
[2016-08-31] MEDS: FUROSEMIDE 40 MG INJ IV SCH (05:51)
[2016-08-31] MEDS: LEVOTHYROXINE 150 MCG TAB PO SCH (05:51)
[2016-08-31] MEDS: METHYLPREDNISOLONE 125 MG INJ IV SCH (05:52)
[2016-08-31 06:03] LABS: ADD SCAN DIFF NO
[2016-08-31 06:07] LABS: BASOPHILS % 0.1 % (0.0-2.0); HEMATOCRIT 27.8 % (37.0-47.0); HEMOGLOBIN 9.3 g/dl (12.0-16.0); LYMPHOCYTES # 1.3 10^3/ul (0.8-2.9); LYMPHOCYTES % 9.6 % (15.0-51.0); MEAN CORPUSCULAR HEMOGLOBIN 31.2 pg (29.0-33.0); MEAN CORPUSCULAR HGB CONC 33.5 g/dl (32.0-37.0); MEAN CORPUSCULAR VOLUME 93.3 fl (82.0-101.0); MEAN PLATELET VOLUME 9.8 fl (7.4-10.4); MONOCYTE # 0.7 10^3/ul (0.3-0.9); MONOCYTES % 4.6 % (0.0-11.0); NEUTROPHIL # 11.9 10^3/ul (1.6-7.5); NEUTROPHILS % 85.1 % (39.0-77.0); PLATELET COUNT 349 10^3/UL (140-415); RED BLOOD COUNT 2.98 10^6/ul (4.20-5.40); RED CELL DISTRIBUTION WIDTH 17.4 % (11.5-14.5)
[2016-08-31 06:25] LABS: MAGNESIUM 1.7 mg/dl (1.7-2.5); PHOSPHORUS 3.3 mg/dl (2.5-4.9)
[2016-08-31 06:26] LABS: CALCIUM 8.5 mg/dl (8.4-10.2); CREATININE 0.63 mg/dl (0.44-1.00); POTASSIUM 3.6 mmol/L (3.5-5.1)
[2016-08-31 07:29] VITALS: BP 119/80; RESP 18
--- NOTE | 2016-08-31 07:38 | PN ---
DATE: 08/30/2016 SUBJECTIVE: The patient seen by pain management and infectious disease team. States some improveme nt in her overall symptoms. No acute events overnight. Awaiting the results of the rheumatology la b workup. OBJECTIVE: VITAL SIGNS: The patient is with mild tachycardia, otherwise stable. GENERAL: The patient is lying in bed, appears lethargic but alert and answering questions. No acut e distress. HEENT: Pupils equal, round, react to light. Extraocular muscles intact. NECK: Supple, no thyromegaly. LUNGS: Clear to auscultation bilaterally. CARDIOVASCULAR: S1, S2 heard. No rubs or gallops. ABDOMEN: Soft, nontender, nondistended. Normal bowel sounds. No rebound or guarding. MUSCULOSKELETAL: Slightly decreased redness on her anterior thighs and feet. Only 1+ pitting edema bilateral lower extremities to the mid calves now. Still slightly warm and red, right greater than left, but again improved since yesterday. Bilateral hands on the palmar aspects less redness, less warmth, although still present. Less bullous findings on the bilateral heels of the feet, no disch arge noted. NEUROLOGIC: No focal deficits. LABORATORY DATA: CBC is normal. Magnesium is 1.6, phosphorus 3.3. Basic metabolic panel was orestes l. The complement levels show C3 is a little low at 50, C4 is normal at 25. ASSESSMENT AND PLAN: A 46-year-old female with history of chronic pain syndrome, prior alcohol use, pain and opioid dependence, cirrhosis, hypothyroidism, history of gastric bypass surgery and depre ssion, who presents with weakness and bilateral hands and lower extremity rash and cellulitis with p ossible bullous skin findings as well. 1. Bilateral cellulitis and rash in the hands and feet again along with bullous findings. Unclear if this is pemphigus. In any event, the patient has family member, specifically mom has a history o f lupus. The patient has had this on and off rash going on for the last few months. She has had at least 3 or 4 admissions to the hospital because of this. We are waiting the final results of SHARONA, anti-double stranded DNA, antismooth muscle antibody test. Complement 3 was low, complement 4 level s are normal. Follow up the final results of these tests. If there are any abnormalities, will con occupational therapist aide rheumatology consult at that time. In the meantime, for her hands and feet continue steroids and broad-spectrum antibiotics. Give Tylenol p.r.n. pain, fevers. There appears to be improvement in the redness and symptoms as well. Less warmth. Follow up recommendations from wound consult car e team and ID team as well. 2. History of cirrhosis. Again, she has lower extremity edema as well. She is on Lasix as well. She has less lower extremity edema since admission. Continue Lasix cautiously. Monitor BUN and cre atinine levels, monitor urine output, monitor the lower extremity swelling as well. 3. History of depression. Continue Effexor and trazodone. 4. Chronic pain syndrome and history of opioid dependence. Appreciate pain management consult neri mmendations. Continue MS Contin at current dose and also morphine sulfate IV p.r.n. 5. History of hypothyroidism. Continue levothyroxine. Also, follow up OT and PT consults, those a re pending. 6. History of gastric bypass. Continue to monitor for now. 7. Gastrointestinal prophylaxis. Pepcid. 8. Deep venous thrombosis prophylaxis. Heparin subcutaneously. Dictated By: TOSIN MACIAS Conf#: [id number] DID#: [id number]
[2016-08-31] MEDS: FISH OIL 1,000 MG CAP PO SCH (09:00)
[2016-08-31] MEDS: THIAMINE 100 MG TAB PO SCH (09:05)
[2016-08-31] MEDS: FLUTICASONE 0.05% 16 GM NAS SPRAY NASAL SCH (09:05)
[2016-08-31] MEDS: GENTAMICIN 0.3% 5 ML OPH BOTH EYES SCH ×2 (09:05→21:12)
[2016-08-31] MEDS: FAMOTIDINE 20 MG TAB PO SCH (09:06)
[2016-08-31] MEDS: MULTIVIT/MIN/FOLATE/IRON/PREN TAB PO SCH (09:06)
[2016-08-31] MEDS: LACTOBACILLUS RHAMNOSUS CAP PO SCH ×2 (09:06→21:14)
[2016-08-31] MEDS: FOLIC ACID 1 MG TAB PO SCH (09:06)
[2016-08-31] MEDS: GABAPENTIN 300 MG CAP PO SCH ×3 (09:06→21:15)
[2016-08-31] MEDS: VENLAFAXINE 75 MG TABLET PO SCH ×2 (09:06→21:14)
[2016-08-31] MEDS: morphine (ER) 30 MG TAB PO SCH ×2 (09:07→21:15)
[2016-08-31] MEDS: HEPARIN 5,000 UNIT/0.5 ML VIAL SC SCH ×2 (09:17→21:32)
[2016-08-31] MEDS: AZTREONAM 2 GM in SOD CHLORIDE 0.9% 100 ML IVPB SCH ×2 (09:20→21:35)
[2016-08-31] MEDS: MULTIVITAMINS/MINERALS TAB PO SCH (09:20)
--- NOTE | 2016-08-31 11:06 | PN ---
Date/Time of Note Date/Time of Note DATE: 08/31/16 TIME: 10:57 Assessment/Plan VTE Prophylaxis VTE Prophylaxis Intervention: heparin Lines/Catheters IV Catheter Type (from Nrsg): Saline Lock Urinary Cath still in place: Yes Reason Cath still needed: urinary retention Assessment/Plan Chief Complaint/Hosp Course ASSESSMENT AND PLAN: 46-year-old female with history of chronic pain syndrome, prior alcohol use, pain and opioid dependence, cirrhosis, hypothyroidism, history of gastric bypass surgery and depression, who presents with weakness and bilateral hands and lower extremity rash and cellulitis with possible bullous skin findings as well. 1. Bilateral cellulitis and rash in the hands and feet again along with bullous findings - much improved now. There appears to be improvement in the redness and symptoms as well. Less warmth. Unclear if this is pemphigus. In any event, the patient has family member, specifically mom has a history of lupus. The patient has had this on and off rash going on for the last few months. She has had at least 3 or 4 admissions to the hospital because of this. SHARONA neg. anti-double stranded DNA, antismooth muscle antibody test are pending. Complement 3 was low, complement 4 levels are normal. - Follow up the final results of these tests. If there are any abnormalities , will consider rheumatology consult at that time. - continue steroids and broad-spectrum antibiotics. - Give Tylenol p.r.n. pain, fevers. - Follow up recommendations from wound consult care team and ID team as well. 2. LE swelling - looking back at last CT A/P, this was Jan 2016 - and it actually showed nL liver contour at that time - so unclear if pt actually has cirrhosis. Again, she has lower extremity edema as well. She is on Lasix as well. She has less lower extremity edema since admission on Lasix IV. - Monitor BUN and creatinine levels, monitor urine output, monitor the lower extremity swelling as well. - will check 2D ECHO and BNP levels - r/o CHF - will get GI consult (she saw Dr Munoz last week in office, was awaiting outpt EGD then) - consider repeat CT A/P as well. 3. History of depression. Continue Effexor and trazodone. 4. Chronic pain syndrome and history of opioid dependence. Appreciate pain management consult recommendations. Continue MS Contin at current dose and also morphine sulfate IV p.r.n. 5. History of hypothyroidism. Continue levothyroxine. Also, follow up OT and PT consults, those are pending. 6. History of gastric bypass. Continue to monitor for now. 7. Gastrointestinal prophylaxis. Pepcid. 8. Deep venous thrombosis prophylaxis. Heparin subcutaneously. 10. elevated tumor markers - last admission one month ago she was evaluated by Heme/Onc team who determined her elevated tumor markers was a non-specific finding, likely non-cancer related. But they recommended repeat tumor markers - which we will do today. Problems: Subjective 24 Hr Interval Summary Free Text/Dictation Pt has less LE swelling. Asking about her tumor markers (ordered on last admssion). Exam/Review of Systems Vital Signs Vitals Vital Signs Date Time Temp Pulse Resp B/P Pulse Ox O2 Delivery O2 Flow Rate FiO2 08/31/16 07:29 97.3 105 18 119/80 95 Intake and Output 08/30/16 08/30/16 08/31/16 15:00 23:00 07:00 Intake Total 200 ml 1380 ml 750 ml Output Total 700 ml 1200 ml Balance 200 ml 680 ml -450 ml Exam GENERAL: The patient is lying in bed, appears lethargic but alert and answering questions. No acute distress. HEENT: Pupils equal, round, react to light. Extraocular muscles intact. NECK: Supple, no thyromegaly. LUNGS: Clear to auscultation bilaterally. CARDIOVASCULAR: S1, S2 heard. No rubs or gallops. ABDOMEN: Soft, nontender, nondistended. Normal bowel sounds. No rebound or guarding. MUSCULOSKELETAL: Decreased redness on her anterior thighs and feet.1+ pitting edema bilateral lower extremities to the mid calves now. Less warm and red, right greater than left, but again improved since yesterday. Bilateral hands on the palmar aspects less redness, less warmth. Less bullous findings on the bilateral heels of the feet, dry blister now, no discharge noted. NEUROLOGIC: No focal deficits. Results Result Diagram: 08/31/16 0520 08/31/16 0520 Results 24 hrs Laboratory Tests Test 08/31/16 05:20 White Blood Count 14.0 #H Red Blood Count 2.98 L Hemoglobin 9.3 L Hematocrit 27.8 L Mean Corpuscular Volume 93.3 Mean Corpuscular Hemoglobin 31.2 Mean Corpuscular Hemoglobin Concent 33.5 Red Cell Distribution Width 17.4 H Platelet Count 349 # Mean Platelet Volume 9.8 Neutrophils % 85.1 H Lymphocytes % 9.6 L Monocytes % 4.6 Eosinophils % 0.0 Basophils % 0.1 Nucleated Red Blood Cells % 0.0 Neutrophils # 11.9 H Lymphocytes # 1.3 Monocytes # 0.7 Eosinophils # 0.0 Basophils # 0.0 Nucleated Red Blood Cells # 0.0 Sodium Level 140 Potassium Level 3.6 Chloride Level 104 Carbon Dioxide Level 28 Anion Gap 12 Blood Urea Nitrogen 14 Creatinine 0.63 Glucose Level 178 Calcium Level 8.5 Phosphorus Level 3.3 Magnesium Level 1.7 Medications Medications Current Medications Famotidine (Pepcid) 20 mg DAILY PO Last administered on 08/31/16 09:06; Admin Dose 20 MG; Start 08/29/16 at 09:00 Thiamine HCl (Vitamin B1) 100 mg DAILY PO Last administered on 08/31/16 09:05; Admin Dose 100 MG; Start 08/29/16 at 09:00 Gabapentin (Neurontin) 300 mg TID PO Last administered on 08/31/16 09:06; Admin Dose 300 MG; Start 08/29/16 at 09:00 Levothyroxine Sodium (Synthroid) 150 mcg DAILY@06 PO Last administered on 05:51; Admin Dose 150 MCG; Start 08/29/16 at 06:00 Folic Acid (Folic Acid) 1 mg DAILY PO Last administered on 08/31/16 09:06; Admin Dose 1 MG; Start 08/29/16 at 09:00 Montelukast Sodium (Singulair) 10 mg HS PO Last administered on 08/30/16 21:56 ; Admin Dose 10 MG; Start 08/29/16 at 21:00 Multivitamins/ Minerals (Theragran-M) 1 tab DAILY PO Last administered on 09:20; Admin Dose 1 TAB; Start 08/29/16 at 09:00 Ondansetron HCl (Zofran Inj) 4 mg Q6H PRN IV NAUSEA AND/OR VOMITING; Start 08/29 at 00:30 Heparin Sodium (Porcine) (Heparin (5000 Units/0.5 ml)) 5,000 unit BID SC Last administered on 08/31/16 09:17; Admin Dose 5,000 UNIT; Start 08/29/16 at 09:00 Trazodone HCl (Desyrel) 50 mg HS PO ; Start 08/29/16 at 21:00 Venlafaxine HCl (Effexor) 150 mg DAILY PO Last administered on 08/31/16 09:06; Admin Dose 150 MG; Start 08/29/16 at 09:00 Venlafaxine HCl 75 mg 75 mg HS PO Last administered on 08/30/16 21:57; Admin Dose 75 MG; Start 08/29/16 at 21:00 Vancomycin HCl 250 ml @ 125 mls/hr Q24H IVPB Last administered on 08/31/16 00: 48; Admin Dose 125 MLS/HR; Start 08/30/16 at 00:00 Aztreonam/Sodium Chloride (Azactam/NS) 100 ml @ 100 mls/hr Q12 IVPB Last administered on 08/31/16 09:20; Admin Dose 100 MLS/HR; Start 08/29/16 at 11:30 Gentamicin Sulfate (Gentamicin 0.3% Oph Drop) 1 drop BID BOTH EYES Last administered on 08/31/16 09:05; Admin Dose 1 DROP; Start 08/29/16 at 12:00 Methylprednisolone Sodium Succinate (Solu-Medrol) 60 mg Q8 IV Last administered on 08/31/16 05:52; Admin Dose 60 MG; Start 08/29/16 at 12:00 Prenat Multivit/ [place]/Iron/Folic Ac ( S) 1 tab DAILY PO Last administered on 08/31/16 09:06; Admin Dose 1 TAB; Start 08/29/16 at 14:30 Lactobacillus Acidophilus/ Rhamnosus (Culturelle) 1 cap BID PO Last administered on 08/31/16 09:06; Admin Dose 1 CAP; Start 08/29/16 at 14:30 Morphine Sulfate (Ms Contin (Er)) 30 mg BID PO Last administered on 08/31/16 09 :07; Admin Dose 30 MG; Start 08/29/16 at 21:00 Morphine Sulfate (morphine) 3 mg Q3H PRN IV BREAKTHROUGH PAIN Last administered on 08/31/16 09:07; Admin Dose 3 MG; Start 08/29/16 at 18:00 Fluticasone Propionate (Flonase 0.05% Nasal) 1 spray DAILY NASAL Last administered on 08/31/16t 09:05; Admin Dose 1 SPRAY; Start 08/30/16 at 13:30 Miscellaneous Information (*Rx Drug Level Order Reminder*) VANCOMYCIN TROUGH LEVEL... ONCE ONCE XX ; Start 08/31/16 at 23:00; Stop 08/31/16 at 23:01 Tolterodine Tartrate (Detrol La) 2 mg DAILY PO ; Start 08/31/16 at 12:00 TOSIN ENCARNACION Aug 31, 2016 11:06
[2016-08-31] MEDS ORDERED: BARIUM SULF 2% 450 ML BTL (BERRY SMOOTHIE) PO ONE (11:30)
[2016-08-31] MEDS ORDERED: TOLTERODINE (SR) 2 MG CAP PO SCH (12:00)
[2016-08-31 13:11] LABS: CANCER ANTIGEN 125 68.8 U/ml (0.0-35.0); CARCINOEMBRYONIC ANTIGEN 34.8 ng/ml (0.0-5.0)
--- NOTE | 2016-08-31 13:23 | CONS ---
Date/Time of Note Date/Time of Note DATE: 08/31/16 TIME: 13:22 Assessment/Plan Assessment/Plan Chief Complaint/Hosp Course SUBJECTIVE: No acute changes. The patient is alert, eating lunch, c/o extremities pain, looks comfortable. No fevers. MICROBIOLOGY: Cultures remain negative. ANTIMICROBIALS: Vancomycin and aztreonam. ALLERGIES: 1. PENICILLIN. 2. SULFA. 3. CEFACLOR. PHYSICAL EXAMINATION: GENERAL: This is a cachectic, well-developed, middle-aged woman, who is alert, in no distress. HEENT: Head atraumatic, normocephalic. Sclerae anicteric. Buccal mucosa pink. NECK: Supple. CHEST: Chest rise is symmetrical. Breath sounds clear. HEART: S1, S2. ABDOMEN: Soft. Bowel tones present. EXTREMITIES: With bilateral edema, erythema, left lower extremity more than right, with multiple lesions and peeling skin peeling, mostly on the soles and palms. ASSESSMENT: 1. Lower extremity cellulitis, left more than right, with increased peeling of the skin on palms and soles==> rule out pemphigoid disease, started on steroids. 2. History of ETOH abuse. 3. History of recurrent sepsis, urinary tract infection, pneumonia. 4. Cachexia and chronic pain syndrome. 5. Alcoholic liver cirrhosis. 6. History of gastric bypass surgery in the past. PLAN: The patient remains stable. Continue the present care. Continue on the current antibiotics. Pain management as per primary team. Consider skin bx DW pt Problems: Consultation Date/Type/Reason Admit Date/Time Aug 28, 2016 at 22:59 Initial Consult Date Type of Consultation: ID Exam/Review of Systems Vital Signs Vitals Vital Signs Date Time Temp Pulse Resp B/P Pulse Ox O2 Delivery O2 Flow Rate FiO2 08/31/16 07:29 97.3 105 18 119/80 95 Intake and Output 08/30/16 08/30/16 08/31/16 15:00 23:00 07:00 Intake Total 200 ml 1380 ml 750 ml Output Total 700 ml 1200 ml Balance 200 ml 680 ml -450 ml Results Result Diagram: 08/31/16 0520 08/31/16 0520 Results 24 hrs Laboratory Tests Test 08/31/16 05:20 08/31/16 11:48 White Blood Count 14.0 #H Red Blood Count 2.98 L Hemoglobin 9.3 L Hematocrit 27.8 L Mean Corpuscular Volume 93.3 Mean Corpuscular Hemoglobin 31.2 Mean Corpuscular Hemoglobin Concent 33.5 Red Cell Distribution Width 17.4 H Platelet Count 349 # Mean Platelet Volume 9.8 Neutrophils % 85.1 H Lymphocytes % 9.6 L Monocytes % 4.6 Eosinophils % 0.0 Basophils % 0.1 Nucleated Red Blood Cells % 0.0 Neutrophils # 11.9 H Lymphocytes # 1.3 Monocytes # 0.7 Eosinophils # 0.0 Basophils # 0.0 Nucleated Red Blood Cells # 0.0 Sodium Level 140 Potassium Level 3.6 Chloride Level 104 Carbon Dioxide Level 28 Anion Gap 12 Blood Urea Nitrogen 14 Creatinine 0.63 Glucose Level 178 Calcium Level 8.5 Phosphorus Level 3.3 Magnesium Level 1.7 B-Type Natriuretic Peptide 2310 H Medications Medications Current Medications Famotidine (Pepcid) 20 mg DAILY PO Last administered on 08/31/16 09:06; Admin Dose 20 MG; Start 08/29/16 at 09:00 Thiamine HCl (Vitamin B1) 100 mg DAILY PO Last administered on 08/31/16 09:05; Admin Dose 100 MG; Start 08/29/16 at 09:00 Gabapentin (Neurontin) 300 mg TID PO Last administered on 08/31/16 12:11; Admin Dose 300 MG; Start 08/29/16 at 09:00 Levothyroxine Sodium (Synthroid) 150 mcg DAILY@06 PO Last administered on 05:51; Admin Dose 150 MCG; Start 08/29/16 at 06:00 Folic Acid (Folic Acid) 1 mg DAILY PO Last administered on 08/31/16 09:06; Admin Dose 1 MG; Start 08/29/16 at 09:00 Montelukast Sodium (Singulair) 10 mg HS PO Last administered on 08/30/16 21:56 ; Admin Dose 10 MG; Start 08/29/16 at 21:00 Multivitamins/ Minerals (Theragran-M) 1 tab DAILY PO Last administered on 09:20; Admin Dose 1 TAB; Start 08/29/16 at 09:00 Ondansetron HCl (Zofran Inj) 4 mg Q6H PRN IV NAUSEA AND/OR VOMITING; Start 08/29 at 00:30 Heparin Sodium (Porcine) (Heparin (5000 Units/0.5 ml)) 5,000 unit BID SC Last administered on 08/31/16 09:17; Admin Dose 5,000 UNIT; Start 08/29/16 at 09:00 Trazodone HCl (Desyrel) 50 mg HS PO ; Start 08/29/16 at 21:00 Venlafaxine HCl (Effexor) 150 mg DAILY PO Last administered on 08/31/16 09:06; Admin Dose 150 MG; Start 08/29/16 at 09:00 Venlafaxine HCl 75 mg 75 mg HS PO Last administered on 08/30/16 21:57; Admin Dose 75 MG; Start 08/29/16 at 21:00 Vancomycin HCl 250 ml @ 125 mls/hr Q24H IVPB Last administered on 08/31/16 00: 48; Admin Dose 125 MLS/HR; Start 08/30/16 at 00:00 Aztreonam/Sodium Chloride (Azactam/NS) 100 ml @ 100 mls/hr Q12 IVPB Last administered on 08/31/16 09:20; Admin Dose 100 MLS/HR; Start 08/29/16 at 11:30 Gentamicin Sulfate (Gentamicin 0.3% Oph Drop) 1 drop BID BOTH EYES Last administered on 08/31/16 09:05; Admin Dose 1 DROP; Start 08/29/16 at 12:00 Prenat Multivit/ Addison/Iron/Folic Ac ( S) 1 tab DAILY PO Last administered on 08/31/16 09:06; Admin Dose 1 TAB; Start 08/29/16 at 14:30 Lactobacillus Acidophilus/ Rhamnosus (Culturelle) 1 cap BID PO Last administered on 08/31/16 09:06; Admin Dose 1 CAP; Start 08/29/16 at 14:30 Morphine Sulfate (Ms Contin (Er)) 30 mg BID PO Last administered on 08/31/16 09 :07; Admin Dose 30 MG; Start 08/29/16 at 21:00 Morphine Sulfate (morphine) 3 mg Q3H PRN IV BREAKTHROUGH PAIN Last administered on 08/31/16 12:12; Admin Dose 3 MG; Start 08/29/16 at 18:00 Fluticasone Propionate (Flonase 0.05% Nasal) 1 spray DAILY NASAL Last administered on 6/9/17at 09:05; Admin Dose 1 SPRAY; Start 08/30/16 at 13:30 Miscellaneous Information (*Rx Drug Level Order Reminder*) VANCOMYCIN TROUGH LEVEL... ONCE ONCE XX ; Start 08/31/16 at 23:00; Stop 08/31/16 at 23:01 Methylprednisolone Sodium Succinate (Solu-Medrol) 40 mg BID IV ; Start 08/31/16 at 21:00 Furosemide (Lasix) 40 mg DAILY@06 IV ; Start 09/01/16 at 06:00 Mupirocin (Bactroban) 1 applic BID TOP ; Start 08/31/16 at 12:30 Tolterodine Tartrate (Detrol La) 2 mg QHS PO ; Start 08/31/16 at 21:00 SAMEER ESQUEDA NP Aug 31, 2016 13:23
[2016-08-31] MEDS: MUPIROCIN 2% 22 GM OINT TOP SCH ×2 (13:30→21:14)
[2016-08-31] MEDS ORDERED: BARIUM SULFATE 0.1% 450 ML BTL (VOLUMEN) PO ONE (14:49)
--- NOTE | 2016-08-31 15:12 | PN ---
DATE: 08/31/2016 PAIN MANAGEMENT FOLLOWUP NOTE SUBJECTIVE: Today I had a long conversation with Ms. Hung once again. She still tends to bargain f or more pain medication, higher doses, but does state that her pain is under better control with the current regimen that she is taking compared to her prehospitalization medications. Her mood does n ot appear to be depressed. If anything, she looks improved from that standpoint, and she is smiling . Denies any side effects, mental confusion, nausea, vomiting, constipation, fatigue, or excessive drowsiness. I get no reports from nursing staff that she is demanding higher doses nor is she aminah ng the on-call physician to have him prescribe higher doses of current medications. OBJECTIVE: CHEST: Clear. CORONARY: S1, S2, without S3, S4, murmur, gallop, rub. Normal rate, normal rhythm. ABDOMEN: Grossly benign. NEUROLOGICAL: She is oriented x3. Cranial nerves II through XII are grossly intact. Motor and sen tunde findings are grossly within normal limits. ASSESSMENT AND PLAN: From a pain management standpoint, she seems to be doing well. Reviewing her laboratory tests, her white blood cell count is up to 14,000, hemoglobin 9.3, hematocrit 27.8. Prim curtis care provider is Dr. Montanez, and he is, I am sure, addressing those issues. Dictated By: MARIA LUZ MARIE MD, LP/PAUL Conf#: [id number] DID#: [id number]
--- NOTE | 2016-08-31 15:54 | RADRPT ---
Echocardiogram Report Patient Name: CHAVO GODINEZ Gender: Female Date: 1970 Study Date: 31-Aug-2016 [employer] Investigator: Oneil [facility] Location: [id number] Ref. Physician: TOSIN ENCARNACION Quality: Adequate Procedures: Transthoracic echocardiogram with complete 2D, M-Mode, and doppler examination. Indications: LE Swelling. 2D/M Mode Doppler Measurement Value Normal Ranges Measurement Value Normal Ranges LVIDd 2D 3.8 3.5 - 5.6 cm AV Peak Mohan 1.3 m/sec LVIDs 2D 2.5 2.1 - 4.1 cm AV Peak PG 6.6 mmHg LVPWd 2D 1.1 0.6 - 1.1 cm LVOT Peak Mohan 1.1 m/sec IVSd 2D 1.1 0.6 - 1.1 cm LVOT Peak PG 5.0 mmHg AoR Diam 2D 2.1 2.0 - 3.7 cm MV E Peak Mohan 1.0 m/sec EDV 2D 63.7 cm3 MV A Peak Mohan 0.8 m/sec ESV 2D 15.2 cm3 MV E/A 1.2 LA Dimen 2D 3.4 2.3 - 4.0 cm MV Decel Time 196 msec MV Decel Cheatham 5 MV E/A 1.2 TR Peak Mohan 3.0 m/sec TR Peak PG 36.3 mmHg RVSP 39.0 mmHg Findings Left Ventricle: Normal left ventricular systolic function. Normal left ventricular cavity size. Left ventricular wall thickness upper limits of normal. Ejection fraction is visually estimated at 5560 %. Tissue Doppler/Mitral Doppler indices are consistent with impaired relaxation (Stage I diastolic dysfunction). Right Ventricle: Normal right ventricular size. Normal right ventricular systolic function. Left Atrium: The left atrium is normal in size. Right Atrium: The right atrium is normal in size. Mitral Valve: Mitral valve leaflets appear mildly thickened. Moderate mitral valve regurgitation. Aortic Valve: Normal appearance of the aortic valve. No significant aortic stenosis or insufficiency. Tricuspid Valve: Normal appearance of the tricuspid valve. Estimated peak PA systolic pressure 39 mmHg. There is mild tricuspid regurgitation. Pericardium: Normal pericardium with no significant pericardial effusion. Aorta: Normal aortic root. IVC: Normal size and normal respiratory collapse consistent with normal right atrial pressure. Conclusions 1.Normal left ventricular systolic function. Normal left ventricular cavity size. Left ventricular wall thickness upper limits of normal. Ejection fraction is visually estimated at 55-60 %. Tissue Doppler/Mitral Doppler indices are consistent with impaired relaxation (Stage I diastolic dysfunction). 2.Mitral valve leaflets appear mildly thickened. Moderate mitral valve regurgitation. 3.Normal appearance of the tricuspid valve. Estimated peak PA systolic pressure 39 mmHg. There is mild tricuspid regurgitation. Electronically Signed By: Blaise Tomlin 31-Aug-2016 15:53:27 -0700 Patient Name: CHAVO GODINEZ Study Date: 31-Aug-2016 [id number]
[2016-08-31] MEDS ORDERED: IOHEXOL 100 ML ONE (16:12)
[2016-08-31] MEDS ORDERED: SOD CHLORIDE 0.9% 100 ML ONE (16:12)
[2016-08-31] MEDS ORDERED: LIDOCAINE 1% (MPF) 5 ML VIAL SC ONE (17:00)
[2016-08-31 19:38] VITALS: BP 130/86; RESP 20
[2016-08-31] MEDS: traZODone 50 MG TAB PO SCH (21:00)
[2016-08-31] MEDS: METHYLPREDNISOLONE 40 MG INJ IV SCH (21:13)
[2016-08-31] MEDS: MONTELUKAST 10 MG TAB PO SCH (21:14)
[2016-08-31] MEDS: TOLTERODINE (SR) 2 MG CAP PO SCH (21:42)
[2016-09-01] MEDS: VANCOMYCIN 1 GM in NS 250 ML IVPB SCH (00:20)
[2016-09-01] MEDS: morphine 4 MG/ML VIAL IV PRN ×7 (00:20→21:09)
[2016-09-01] MEDS: traZODone 50 MG TAB PO SCH ×2 (00:21→21:00)
[2016-09-01] MEDS: FUROSEMIDE 40 MG INJ IV SCH (05:29)
[2016-09-01] MEDS: LEVOTHYROXINE 150 MCG TAB PO SCH (05:30)
[2016-09-01 05:44] LABS: ADD SCAN DIFF NO
[2016-09-01 05:49] LABS: BASOPHILS % 0.1 % (0.0-2.0); HEMATOCRIT 27.9 % (37.0-47.0); HEMOGLOBIN 8.9 g/dl (12.0-16.0); LYMPHOCYTES # 1.1 10^3/ul (0.8-2.9); LYMPHOCYTES % 15.3 % (15.0-51.0); MEAN CORPUSCULAR HEMOGLOBIN 30.1 pg (29.0-33.0); MEAN CORPUSCULAR HGB CONC 31.9 g/dl (32.0-37.0); MEAN CORPUSCULAR VOLUME 94.3 fl (82.0-101.0); MEAN PLATELET VOLUME 9.9 fl (7.4-10.4); MONOCYTE # 0.2 10^3/ul (0.3-0.9); NEUTROPHIL # 5.9 10^3/ul (1.6-7.5); NEUTROPHILS % 81.2 % (39.0-77.0); PLATELET COUNT 319 10^3/UL (140-415); RED BLOOD COUNT 2.96 10^6/ul (4.20-5.40); RED CELL DISTRIBUTION WIDTH 17.8 % (11.5-14.5); WHITE BLOOD COUNT 7.3 10^3/ul (4.8-10.8)
[2016-09-01 06:19] LABS: CALCIUM 8.3 mg/dl (8.4-10.2); CREATININE 0.82 mg/dl (0.44-1.00); POTASSIUM 3.8 mmol/L (3.5-5.1)
[2016-09-01 07:41] VITALS: BP 108/72; RESP 18
[2016-09-01] MEDS: GENTAMICIN 0.3% 5 ML OPH BOTH EYES SCH ×2 (08:26→21:23)
[2016-09-01] MEDS: MUPIROCIN 2% 22 GM OINT TOP SCH ×2 (08:26→21:23)
[2016-09-01] MEDS: THIAMINE 100 MG TAB PO SCH (08:26)
[2016-09-01] MEDS: MULTIVIT/MIN/FOLATE/IRON/PREN TAB PO SCH (08:27)
[2016-09-01] MEDS: VENLAFAXINE 75 MG TABLET PO SCH ×2 (08:27→21:22)
[2016-09-01] MEDS: LACTOBACILLUS RHAMNOSUS CAP PO SCH ×2 (08:27→21:22)
[2016-09-01] MEDS: FOLIC ACID 1 MG TAB PO SCH (08:27)
[2016-09-01] MEDS: FAMOTIDINE 20 MG TAB PO SCH (08:27)
[2016-09-01] MEDS: METHYLPREDNISOLONE 40 MG INJ IV SCH ×2 (08:27→21:22)
[2016-09-01] MEDS: MULTIVITAMINS/MINERALS TAB PO SCH (08:27)
[2016-09-01] MEDS: GABAPENTIN 300 MG CAP PO SCH ×3 (08:27→21:22)
[2016-09-01] MEDS: FLUTICASONE 0.05% 16 GM NAS SPRAY NASAL SCH (08:28)
[2016-09-01] MEDS: HEPARIN 5,000 UNIT/0.5 ML VIAL SC SCH ×2 (09:01→21:35)
[2016-09-01] MEDS: morphine (ER) 30 MG TAB PO SCH ×2 (09:17→22:07)
[2016-09-01] MEDS: AZTREONAM 2 GM in SOD CHLORIDE 0.9% 100 ML IVPB SCH ×2 (09:18→21:39)
--- NOTE | 2016-09-01 10:56 | PN ---
Date/Time of Note Date/Time of Note DATE: 09/01/16 TIME: 10:48 Assessment/Plan VTE Prophylaxis VTE Prophylaxis Intervention: heparin Lines/Catheters IV Catheter Type (from Nrsg): Saline Lock Urinary Cath still in place: Yes Reason Cath still needed: urinary retention Assessment/Plan Chief Complaint/Hosp Course ASSESSMENT AND PLAN: 46-year-old female with history of chronic pain syndrome, prior alcohol use, pain and opioid dependence, cirrhosis, hypothyroidism, history of gastric bypass surgery and depression, who presents with weakness and bilateral hands and lower extremity rash and cellulitis with possible bullous skin findings as well. 1. Bilateral cellulitis and rash in the hands and feet again along with bullous findings - much improved now. There appears to be improvement in the redness and symptoms as well. Less warmth. Unclear if this is pemphigus. In any event, the patient has family member, specifically mom has a history of lupus. The patient has had this on and off rash going on for the last few months. She has had at least 3 or 4 admissions to the hospital because of this. SHARONA neg. anti-double stranded DNA = nL levels; antismooth muscle antibody test are pending. Complement 3 was low, complement 4 levels are normal. - Follow up the final results of these tests. Based on prelim results, does not appear to be lupus at this point. - continue steroids (tapering down) and broad-spectrum antibiotics. - Tylenol p.r.n. pain, fevers. - Follow up recommendations from wound consult care team and ID team as well. 2. LE swelling - looking back at last CT A/P, this was Jan 2016 - and it actually showed nL liver contour at that time - so unclear if pt actually has cirrhosis. Again, she has lower extremity edema as well. She is on Lasix as well. ECHO performed (see results below). She has less lower extremity edema since admission on Lasix IV. BNP = 2300. - Monitor BUN and creatinine levels, monitor urine output, monitor the lower extremity swelling as well. - continue IV lasix for now 3. History of depression. Continue Effexor and trazodone. 4. Chronic pain syndrome and history of opioid dependence. Appreciate pain management consult recommendations. - Continue MS Contin at current dose, morphine sulfate IV p.r.n. 5. History of hypothyroidism. - Continue levothyroxine. Also, follow up OT and PT consults, those are pending. 6. History of gastric bypass. Continue to monitor for now. 7. Gastrointestinal prophylaxis. Pepcid. 8. Deep venous thrombosis prophylaxis. Heparin subcutaneously. 10. elevated tumor markers - last admission one month ago she was evaluated by Heme/Onc team who determined her elevated tumor markers was a non-specific finding, likely non-cancer related. But they recommended repeat tumor markers as outpt, they are still elevated . - f/u GI consult rec's (she saw Dr Munoz last week in the office, was awaiting outpt EGD then) - CT A/P w/pancreatic protocol is pending - r/p pancreas pathology since tumor markers elevated (elevated Ca 19-9, 125, and CEA) Problems: Subjective 24 Hr Interval Summary Free Text/Dictation Pt worked with PT. Could not get CT scan yesterday, awaiting PICC placement today, then CT A/P (Pancreas protocol) to be performed after that. Exam/Review of Systems Vital Signs Vitals Vital Signs Date Time Temp Pulse Resp B/P Pulse Ox O2 Delivery O2 Flow Rate FiO2 09/01/16 07:41 97.8 100 18 108/72 98 Intake and Output 08/31/16 08/31/16 09/01/16 15:00 23:00 07:00 Intake Total 100 ml 1060 ml 1050 ml Output Total 1900 ml 1500 ml Balance 100 ml -840 ml -450 ml Exam GENERAL: The patient is lying in bed, appears lethargic but alert and answering questions. No acute distress. HEENT: Pupils equal, round, react to light. Extraocular muscles intact. NECK: Supple, no thyromegaly. LUNGS: Clear to auscultation bilaterally. CARDIOVASCULAR: S1, S2 heard. No rubs or gallops. ABDOMEN: Soft, nontender, nondistended. Normal bowel sounds. No rebound or guarding. MUSCULOSKELETAL: Decreased redness on her anterior thighs and feet. 1+ pitting edema bilateral lower extremities to the mid calves now. Less warm and red, right greater than left, but again improved since yesterday. Bilateral hands on the palmar aspects less redness, less warmth. Less bullous findings on the bilateral heels of the feet, dry blister now, no discharge noted. NEUROLOGIC: No focal deficits. Results Result Diagram: 09/01/16 0518 09/01/16 0518 Results 24 hrs Laboratory Tests Test 08/31/16 11:48 08/31/16 23:11 09/01/16 05:18 B-Type Natriuretic Peptide 2310 H Alpha Fetoprotein 1.56 Carcinoembryonic Antigen 34.8 H CA 19-9 Antigen 141.0 H CA 125 Antigen 68.8 H Vancomycin Level Trough 7.7 L White Blood Count 7.3 # Red Blood Count 2.96 L Hemoglobin 8.9 L Hematocrit 27.9 L Mean Corpuscular Volume 94.3 Mean Corpuscular Hemoglobin 30.1 Mean Corpuscular Hemoglobin Concent 31.9 L Red Cell Distribution Width 17.8 H Platelet Count 319 Mean Platelet Volume 9.9 Neutrophils % 81.2 H Lymphocytes % 15.3 Monocytes % 3.0 Eosinophils % 0.0 Basophils % 0.1 Nucleated Red Blood Cells % 0.0 Neutrophils # 5.9 Lymphocytes # 1.1 Monocytes # 0.2 L Eosinophils # 0.0 Basophils # 0.0 Nucleated Red Blood Cells # 0.0 Sodium Level 140 Potassium Level 3.8 Chloride Level 104 Carbon Dioxide Level 31 Anion Gap 9 Blood Urea Nitrogen 12 Creatinine 0.82 Glucose Level 154 Calcium Level 8.3 L Medications Medications Current Medications Famotidine (Pepcid) 20 mg DAILY PO Last administered on 09/01/16 08:27; Admin Dose 20 MG; Start 08/29/16 at 09:00 Thiamine HCl (Vitamin B1) 100 mg DAILY PO Last administered on 09/01/16 08:26 ; Admin Dose 100 MG; Start 08/29/16 at 09:00 Gabapentin (Neurontin) 300 mg TID PO Last administered on 09/01/16 08:27; Admin Dose 300 MG; Start 08/29/16 at 09:00 Levothyroxine Sodium (Synthroid) 150 mcg DAILY@06 PO Last administered on 05:30; Admin Dose 150 MCG; Start 08/29/16 at 06:00 Folic Acid (Folic Acid) 1 mg DAILY PO Last administered on 09/01/16 08:27; Admin Dose 1 MG; Start 08/29/16 at 09:00 Montelukast Sodium (Singulair) 10 mg HS PO Last administered on 08/31/16 21:14 ; Admin Dose 10 MG; Start 08/29/16 at 21:00 Multivitamins/ Minerals (Theragran-M) 1 tab DAILY PO Last administered on 08:27; Admin Dose 1 TAB; Start 08/29/16 at 09:00 Ondansetron HCl (Zofran Inj) 4 mg Q6H PRN IV NAUSEA AND/OR VOMITING; Start 08/29 at 00:30 Heparin Sodium (Porcine) (Heparin (5000 Units/0.5 ml)) 5,000 unit BID SC Last administered on 09/01/16 09:01; Admin Dose 5,000 UNIT; Start 08/29/16 at 09:00 Trazodone HCl (Desyrel) 50 mg HS PO Last administered on 09/01/16 00:21; Admin Dose 50 MG; Start 08/29/16 at 21:00 Venlafaxine HCl (Effexor) 150 mg DAILY PO Last administered on 09/01/16 08:27 ; Admin Dose 150 MG; Start 08/29/16 at 09:00 Venlafaxine HCl 75 mg 75 mg HS PO Last administered on 08/31/16 21:14; Admin Dose 75 MG; Start 08/29/16 at 21:00 Aztreonam/Sodium Chloride (Azactam/NS) 100 ml @ 100 mls/hr Q12 IVPB Last administered on 09/01/16 09:18; Admin Dose 100 MLS/HR; Start 08/29/16 at 11:30 Gentamicin Sulfate (Gentamicin 0.3% Oph Drop) 1 drop BID BOTH EYES Last administered on 09/01/16 08:26; Admin Dose 1 DROP; Start 08/29/16 at 12:00 Prenat Multivit/ Hat Conditioner/Iron/Folic Ac ( S) 1 tab DAILY PO Last administered on 09/01/16 08:27; Admin Dose 1 TAB; Start 08/29/16 at 14:30 Lactobacillus Acidophilus/ Rhamnosus (Culturelle) 1 cap BID PO Last administered on 09/01/16 08:27; Admin Dose 1 CAP; Start 08/29/16 at 14:30 Morphine Sulfate (Ms Contin (Er)) 30 mg BID PO Last administered on 09/01/16 09:17; Admin Dose 30 MG; Start 08/29/16 at 21:00 Morphine Sulfate (morphine) 3 mg Q3H PRN IV BREAKTHROUGH PAIN Last administered on 09/01/16 08:29; Admin Dose 3 MG; Start 08/29/16 at 18:00 Fluticasone Propionate (Flonase 0.05% Nasal) 1 spray DAILY NASAL Last administered on 09/01/16 08:28; Admin Dose 1 SPRAY; Start 08/30/16 at 13:30 Methylprednisolone Sodium Succinate (Solu-Medrol) 40 mg BID IV Last administered on 09/01/16 08:27; Admin Dose 40 MG; Start 08/31/16 at 21:00 Furosemide (Lasix) 40 mg DAILY@06 IV Last administered on 09/01/16 05:29; Admin Dose 40 MG; Start 09/01/16 at 06:00 Mupirocin (Bactroban) 1 applic BID TOP Last administered on 09/01/16 08:26; Admin Dose 1 APPLIC; Start 08/31/16 at 12:30 Tolterodine Tartrate 2 mg 2 mg QHS PO Last administered on 08/31/16 21:42; Admin Dose 2 MG; Start 08/31/16 at 21:00 Vancomycin HCl/ Sodium Chloride (Vancocin/NS) 150 ml @ 75 mls/hr Q12H IVPB ; Start 09/01/16 at 12:00 Procedures Procedures 2D ECHO (08/31/16): Conclusions 1. Normal left ventricular systolic function. Normal left ventricular cavity size. Left ventricular wall thickness upper limits of normal. Ejection fraction is visually estimated at 55-60 %. Tissue Doppler/Mitral Doppler indices are consistent with impaired relaxation (Stage I diastolic dysfunction). 2. Mitral valve leaflets appear mildly thickened. Moderate mitral valve regurgitation. 3. Normal appearance of the tricuspid valve. Estimated peak PA systolic pressure 39 mmHg. There is mild tricuspid regurgitation. TOSIN ENCARNACION Sep 01, 2016 10:56
[2016-09-01] MEDS: VANCOMYCIN 750 MG in SOD CHLORIDE 0.9% 150 ML IVPB SCH (11:34)
[2016-09-01] MEDS ORDERED: VANCOMYCIN 1 GM in NS 250 ML IVPB SCH (12:00)
[2016-09-01] MEDS ORDERED: LIDOCAINE 1% (MPF) 5 ML VIAL SC ONE (12:30)
--- NOTE | 2016-09-01 13:30 | RADRPT ---
PROCEDURE: Ultrasound guidance for PICC line placement by PICC line nurse. CLINICAL INDICATION: Central IV access TECHNIQUE: Ultrasound guidance was provided to PICC line nurse. Limited scanning of the upper ext remity veins is performed. COMPARISON: None FINDINGS: Limited scans of the upper extremity shows patent upper extremity veins. IMPRESSION: Ultrasound guidance provided to PICC line nurse for PICC line placement. RPTAT: QQ .Bruno Rubio MD, Date Time Electronically viewed and signed by .Bruno Rubio MD, on 09/01/2016 13:30 .L/
--- NOTE | 2016-09-01 13:34 | RADRPT ---
PROCEDURE: XR Chest. CLINICAL INDICATION: PICC line placement TECHNIQUE: Single frontal chest x-ray. COMPARISON: 07/20/2016 FINDINGS: The lungs are clear of acute infiltrates, edema, effusions, or masses. There is a left arm PICC line in place with tip in the superior vena cava.. The cardiomediastinal silhouette is unremarkable. Th e osseous structures are intact. IMPRESSION: No acute cardiopulmonary disease. Left arm PICC line in place with tip in the superior vena cava. Call report: A call report of the findings was made to patient's nurse on 09/01/2016 1:33:51 PM. RPTAT: QQ .Bruno Rubio MD, Date Time Electronically viewed and signed by .Bruno Rubio MD, on 09/01/2016 13:34 .L/
--- NOTE | 2016-09-01 14:20 | CONS ---
DATE OF ADMISSION: 08/28/2016 DATE OF CONSULTATION: 08/31/2016 TYPE OF CONSULTATION: Gastroenterology. Dear Dr. Encarnacion, Thank you for the referral. HISTORY OF PRESENT ILLNESS: The patient is a 46-year-old female admitted to the hospital for diffus e ____. She has chronic pain syndrome, hypothyroidism. She is status post gastric bypass surgery in the past. Also opioid dependence, depression, GERD, alcoholic liver disease and bronchial asthma. During her last hospitalization her CEA was elevated, it was around 34, patient underwent colonosco py which was negative. She was referred to my office and we were planning to do endoscopy as an out patient, but patient got admitted to this facility. PAST MEDICAL HISTORY: Gastric bypass surgery, cholecystectomy, SVT ablation. FAMILY HISTORY: Positive for diabetes. SOCIAL HISTORY: Heavy alcohol abuser, former smoker. ALLERGIES 1. PENICILLIN. 2. SULFA. 3. CEFACLOR. 4. PROCHLORPERAZINE. REVIEW OF SYSTEMS: Negative. PHYSICAL EXAMINATION GENERAL: Thin built, nourished, not in distress. VITAL SIGNS: Stable. HEENT: Unremarkable. NECK: Supple, no thyromegaly, no lymphadenopathy. CARDIOVASCULAR: No murmur, gallop or click. LUNGS: Clear. ABDOMEN: Benign. EXTREMITIES: No edema. CENTRAL NERVOUS SYSTEM: Grossly within normal limit. LABORATORY DATA: Shows hematocrit of 29 to 27, normochromic, normocytic. RDW is elevated to ____, p latelet count is normal. The chemistry shows a CEA of 34.8. CA 19-9 is 141, which is elevated and CA-125 is also elevated to 68, that is a mild elevation. Liver function test shows a mild elevation of her SGOT to 64 and alkaline phosphatase was also elevated to 159. The patient had a CAT scan do ne on 02/11/2016 which showed cholecystectomy and physiological dilatation of extrahepatic duct, gas tric bypass and hiatal hernia. IMPRESSION: 1. Bilateral cellulitis of the hands and feet with a bullous finding, much improved on a steroid an d antibiotic. 2. Depression. 3. Chronic pain syndrome. 4. Hypothyroidism. 5. Status post gastric bypass surgery. 6. Elevated CA 19-9 and CEA. PLAN: At this point, is to do a pancreatic protocol CAT scan. Continue present care. The patient is already scheduled for EGD as an outpatient. Will review CT scan once it is done. The patient's pedal edema may be due to hypoalbuminemia, which in turn is due to gastric bypass surg robbi. Again, cirrhosis also needs to be ruled out. Dictated By: AMBER NELSON/PAUL Conf#: [id number] DID#: [id number] CC: AMBER FERRO MD; TOSIN ENCARNACION;*EndCC*
--- NOTE | 2016-09-01 15:06 | CONS ---
Date/Time of Note Date/Time of Note DATE: 09/01/16 TIME: 15:05 Assessment/Plan Assessment/Plan Additional Assessment/Plan IMPRESSION: 1. Bilateral cellulitis of the hands and feet with a bullous finding, much improved on a steroid and antibiotic. 2. Depression. 3. Chronic pain syndrome. 4. Hypothyroidism. 5. Status post gastric bypass surgery. 6. Elevated CA 19-9 and CEA. 7. Severe palmar erythema 8. Hypoalbuminemia Plan We will review CT scan of abdomen once it is done. If it is negative we will proceed with EGD. Consultation Date/Type/Reason Admit Date/Time Aug 28, 2016 at 22:59 Initial Consult Date Type of Consultation: ID [id number] HR Interval Summary Constitutional: improved Exam/Review of Systems Vital Signs Vitals Vital Signs Date Time Temp Pulse Resp B/P Pulse Ox O2 Delivery O2 Flow Rate FiO2 09/01/16 07:41 97.8 100 18 108/72 98 Intake and Output 08/31/16 08/31/16 09/01/16 15:00 23:00 07:00 Intake Total 100 ml 1060 ml 1050 ml Output Total 1900 ml 1500 ml Balance 100 ml -840 ml -450 ml Exam Constitutional: alert, oriented, well developed Psych: nl mood/affect, no complaints Head: atraumatic, normocephalic Eyes: EOMI, PERRL, nl conjunctiva, nl lids, nl sclera ENMT: nl external ears & nose, nl lips & teeth, nl nasal mucosa & septum Neck: non-tender, supple Respiratory: clear to auscultation, normal air movement Cardiovascular: nl pulses, regular rate and rhythm Gastrointestinal: nl liver, spleen, non-tender, soft Musculoskeletal: nl extremities to inspection, nl gait and stance Extremities: normal pulses 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0 Eosinophils % 0.0 Basophils % 0.1 Nucleated Red Blood Cells % 0.0 Neutrophils # 5.9 Lymphocytes # 1.1 Monocytes # 0.2 L Eosinophils # 0.0 Basophils # 0.0 Nucleated Red Blood Cells # 0.0 Sodium Level 140 Potassium Level 3.8 Chloride Level 104 Carbon Dioxide Level 31 Anion Gap 9 Blood Urea Nitrogen 12 Creatinine 0.82 Glucose Level 154 Calcium Level 8.3 L Medications Medications Current Medications Famotidine (Pepcid) 20 mg DAILY PO Last administered on 09/01/16 08:27; Admin Dose 20 MG; Start 08/29/16 at 09:00 Thiamine HCl (Vitamin B1) 100 mg DAILY PO Last administered on 09/01/16 08:26 ; Admin Dose 100 MG; Start 08/29/16 at 09:00 Gabapentin (Neurontin) 300 mg TID PO Last administered on 09/01/16 14:31; Admin Dose 300 MG; Start 08/29/16 at 09:00 Levothyroxine Sodium (Synthroid) 150 mcg DAILY@06 PO Last administered on 05:30; Admin Dose 150 MCG; Start 08/29/16 at 06:00 Folic Acid (Folic Acid) 1 mg DAILY PO Last administered on 09/01/16 08:27; Admin Dose 1 MG; Start 08/29/16 at 09:00 Montelukast Sodium (Singulair) 10 mg HS PO Last administered on 08/31/16 21:14 ; Admin Dose 10 MG; Start 08/29/16 at 21:00 Multivitamins/ Minerals (Theragran-M) 1 tab DAILY PO Last administered on 08:27; Admin Dose 1 TAB; Start 08/29/16 at 09:00 Ondansetron HCl (Zofran Inj) 4 mg Q6H PRN IV NAUSEA AND/OR VOMITING; Start 08/29 at 00:30 Heparin Sodium (Porcine) (Heparin (5000 Units/0.5 ml)) 5,000 unit BID SC Last administered on 09/01/16 09:01; Admin Dose 5,000 UNIT; Start 08/29/16 at 09:00 Trazodone HCl (Desyrel) 50 mg HS PO Last administered on 09/01/16 00:21; Admin Dose 50 MG; Start 08/29/16 at 21:00 Venlafaxine HCl (Effexor) 150 mg DAILY PO Last administered on 09/01/16 08:27 ; Admin Dose 150 MG; Start 08/29/16 at 09:00 Venlafaxine HCl 75 mg 75 mg HS PO Last administered on 08/31/16 21:14; Admin Dose 75 MG; Start 08/29/16 at 21:00 Aztreonam/Sodium Chloride (Azactam/NS) 100 ml @ 100 mls/hr Q12 IVPB Last administered on 09/01/16 09:18; Admin Dose 100 MLS/HR; Start 08/29/16 at 11:30 Gentamicin Sulfate (Gentamicin 0.3% Oph Drop) 1 drop BID BOTH EYES Last administered on 09/01/16 08:26; Admin Dose 1 DROP; Start 08/29/16 at 12:00; Stop 09/02/16 at 08:00 Prenat Multivit/ Pediatric Genetic Counselor/Iron/Folic Ac ( S) 1 tab DAILY PO Last administered on 09/01/16 08:27; Admin Dose 1 TAB; Start 08/29/16 at 14:30 Lactobacillus Acidophilus/ Rhamnosus (Culturelle) 1 cap BID PO Last administered on 09/01/16 08:27; Admin Dose 1 CAP; Start 08/29/16 at 14:30 Morphine Sulfate (Ms Contin (Er)) 30 mg BID PO Last administered on 09/01/16 09:17; Admin Dose 30 MG; Start 08/29/16 at 21:00 Morphine Sulfate (morphine) 3 mg Q3H PRN IV BREAKTHROUGH PAIN Last administered on 09/01/16 14:32; Admin Dose 3 MG; Start 08/29/16 at 18:00 Fluticasone Propionate (Flonase 0.05% Nasal) 1 spray DAILY NASAL Last administered on 09/01/16 08:28; Admin Dose 1 SPRAY; Start 08/30/16 at 13:30 Methylprednisolone Sodium Succinate (Solu-Medrol) 40 mg BID IV Last administered on 09/01/16 08:27; Admin Dose 40 MG; Start 08/31/16 at 21:00 Furosemide (Lasix) 40 mg DAILY@06 IV Last administered on 09/01/16 05:29; Admin Dose 40 MG; Start 09/01/16 at 06:00 Mupirocin (Bactroban) 1 applic BID TOP Last administered on 09/01/16 08:26; Admin Dose 1 APPLIC; Start 08/31/16 at 12:30 Tolterodine Tartrate 2 mg 2 mg QHS PO Last administered on 08/31/16 21:42; Admin Dose 2 MG; Start 08/31/16 at 21:00 Vancomycin HCl/ Sodium Chloride (Vancocin/NS) 150 ml @ 75 mls/hr Q12H IVPB Last administered on 09/01/16 11:34; Admin Dose 75 MLS/HR; Start 09/01/16 at 12 :00 AMBER FERRO MD Sep 01, 2016 15:06
[2016-09-01] MEDS ORDERED: BARIUM SULFATE 0.1% 450 ML BTL (VOLUMEN) PO ONE (15:07)
[2016-09-01] MEDS ORDERED: SOD CHLORIDE 0.9% 100 ML ONE (18:18)
[2016-09-01] MEDS ORDERED: IODIXANOL LOCM 100 ML BTL ONE (18:18)
--- NOTE | 2016-09-01 18:51 | CONS ---
Date/Time of Note Date/Time of Note DATE: 09/01/16 TIME: 18:49 Assessment/Plan Assessment/Plan Chief Complaint/Hosp Course SUBJECTIVE: No acute changes. The patient is alert, looks comfortable. No fevers. MICROBIOLOGY: Cultures remain negative. ANTIMICROBIALS: Vancomycin and aztreonam. ALLERGIES: 1. PENICILLIN. 2. SULFA. 3. CEFACLOR. PHYSICAL EXAMINATION: GENERAL: This is a cachectic, well-developed, middle-aged woman, who is alert, in no distress. HEENT: Head atraumatic, normocephalic. Sclerae anicteric. Buccal mucosa pink. NECK: Supple. CHEST: Chest rise is symmetrical. Breath sounds clear. HEART: S1, S2. ABDOMEN: Soft. Bowel tones present. EXTREMITIES: With bilateral edema, erythema, left lower extremity more than right, with multiple lesions and peeling skin peeling, mostly on the soles and palms. ASSESSMENT: 1. Lower extremity cellulitis, left more than right, with increased peeling of the skin on palms and soles==> rule out pemphigoid disease, remains on steroids. 2. History of ETOH abuse. 3. History of recurrent sepsis, urinary tract infection, pneumonia. 4. Cachexia and chronic pain syndrome. 5. Alcoholic liver cirrhosis. 6. History of gastric bypass surgery in the past. 7. Elevated CA 19-9 and CEA. 8. 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 Continue the present care. Continue on the current antibiotics. Pain management as per primary team. GI rec-s noted, pending EGD [facility] staff Problems: Consultation Date/Type/Reason Admit Date/Time Aug 28, 2016 at 22:59 Type of Consultation: ID Exam/Review of Systems Vital Signs Vitals Vital Signs Date Time Temp Pulse Resp B/P Pulse Ox O2 Delivery O2 Flow Rate FiO2 09/01/16 07:41 97.8 100 18 108/72 98 Intake and Output 08/31/16 08/31/16 09/01/16 15:00 23:00 07:00 Intake Total 100 ml 1060 ml 1050 ml Output Total 1900 ml 1500 ml Balance 100 ml -840 ml -450 ml Results Result Diagram: 09/01/16 0518 09/01/16517 Results 24 hrs Laboratory Tests Test 08/31/16 23:11 09/01/16 05:18 Vancomycin Level Trough 7.7 L White Blood Count 7.3 # Red Blood Count 2.96 L Hemoglobin 8.9 L Hematocrit 27.9 L Mean Corpuscular Volume 94.3 Mean Corpuscular Hemoglobin 30.1 Mean Corpuscular Hemoglobin Concent 31.9 L Red Cell Distribution Width 17.8 H Platelet Count 319 Mean Platelet Volume 9.9 Neutrophils % 81.2 H Lymphocytes % 15.3 Monocytes % 3.0 Eosinophils % 0.0 Basophils % 0.1 Nucleated Red Blood Cells % 0.0 Neutrophils # 5.9 Lymphocytes # 1.1 Monocytes # 0.2 L Eosinophils # 0.0 Basophils # 0.0 Nucleated Red Blood Cells # 0.0 Sodium Level 140 Potassium Level 3.8 Chloride Level 104 Carbon Dioxide Level 31 Anion Gap 9 Blood Urea Nitrogen 12 Creatinine 0.82 Glucose Level 154 Calcium Level 8.3 L Medications Medications Current Medications Famotidine (Pepcid) 20 mg DAILY PO Last administered on 09/01/16 08:27; Admin Dose 20 MG; Start 08/29/16 at 09:00 Thiamine HCl (Vitamin B1) 100 mg DAILY PO Last administered on 09/01/16 08:26 ; Admin Dose 100 MG; Start 08/29/16 at 09:00 Gabapentin (Neurontin) 300 mg TID PO Last administered on 09/01/16 14:31; Admin Dose 300 MG; Start 08/29/16 at 09:00 Levothyroxine Sodium (Synthroid) 150 mcg DAILY@06 PO Last administered on 05:30; Admin Dose 150 MCG; Start 08/29/16 at 06:00 Folic Acid (Folic Acid) 1 mg DAILY PO Last administered on 09/01/16 08:27; Admin Dose 1 MG; Start 08/29/16 at 09:00 Montelukast Sodium (Singulair) 10 mg HS PO Last administered on 08/31/16 21:14 ; Admin Dose 10 MG; Start 08/29/16 at 21:00 Multivitamins/ Minerals (Theragran-M) 1 tab DAILY PO Last administered on 08:27; Admin Dose 1 TAB; Start 08/29/16 at 09:00 Ondansetron HCl (Zofran Inj) 4 mg Q6H PRN IV NAUSEA AND/OR VOMITING; Start 08/29 at 00:30 Heparin Sodium (Porcine) (Heparin (5000 Units/0.5 ml)) 5,000 unit BID SC Last administered on 09/01/16 09:01; Admin Dose 5,000 UNIT; Start 08/29/16 at 09:00 Trazodone HCl (Desyrel) 50 mg HS PO Last administered on 09/01/16 00:21; Admin Dose 50 MG; Start 08/29/16 at 21:00 Venlafaxine HCl (Effexor) 150 mg DAILY PO Last administered on 09/01/16 08:27 ; Admin Dose 150 MG; Start 08/29/16 at 09:00 Venlafaxine HCl 75 mg 75 mg HS PO Last administered on 08/31/16 21:14; Admin Dose 75 MG; Start 08/29/16 at 21:00 Aztreonam/Sodium Chloride (Azactam/NS) 100 ml @ 100 mls/hr Q12 IVPB Last administered on 09/01/16 09:18; Admin Dose 100 MLS/HR; Start 08/29/16 at 11:30 Gentamicin Sulfate (Gentamicin 0.3% Oph Drop) 1 drop BID BOTH EYES Last administered on 09/01/16 08:26; Admin Dose 1 DROP; Start 08/29/16 at 12:00; Stop 09/02/16 at 08:00 Prenat Multivit/ Buggyman/Iron/Folic Ac ( S) 1 tab DAILY PO Last administered on 09/01/16 08:27; Admin Dose 1 TAB; Start 08/29/16 at 14:30 Lactobacillus Acidophilus/ Rhamnosus (Culturelle) 1 cap BID PO Last administered on 09/01/16 08:27; Admin Dose 1 CAP; Start 08/29/16 at 14:30 Morphine Sulfate (Ms Contin (Er)) 30 mg BID PO Last administered on 09/01/16 09:17; Admin Dose 30 MG; Start 08/29/16 at 21:00 Morphine Sulfate (morphine) 3 mg Q3H PRN IV BREAKTHROUGH PAIN Last administered on 09/01/16 17:34; Admin Dose 3 MG; Start 08/29/16 at 18:00 Fluticasone Propionate (Flonase 0.05% Nasal) 1 spray DAILY NASAL Last administered on 09/01/16 08:28; Admin Dose 1 SPRAY; Start 08/30/16 at 13:30 Methylprednisolone Sodium Succinate (Solu-Medrol) 40 mg BID IV Last administered on 09/01/16 08:27; Admin Dose 40 MG; Start 08/31/16 at 21:00 Furosemide (Lasix) 40 mg DAILY@06 IV Last administered on 09/01/16 05:29; Admin Dose 40 MG; Start 09/01/16 at 06:00 Mupirocin (Bactroban) 1 applic BID TOP Last administered on 09/01/16 08:26; Admin Dose 1 APPLIC; Start 08/31/16 at 12:30 Tolterodine Tartrate 2 mg 2 mg QHS PO Last administered on 08/31/16 21:42; Admin Dose 2 MG; Start 08/31/16 at 21:00 Vancomycin HCl/ Sodium Chloride (Vancocin/NS) 150 ml @ 75 mls/hr Q12H IVPB Last administered on 09/01/16 11:34; Admin Dose 75 MLS/HR; Start 09/01/16 at 12 :00 SAMEER ESQUEDA NP Sep 01, 2016 18:51
--- NOTE | 2016-09-01 19:07 | RADRPT ---
PROCEDURE: CT Abdomen and Pelvis with and without contrast. Multiphasic contrast and enterography protocol. CLINICAL INDICATION: Abdominal pain. Rule out cirrhosis versus pancreatic carcinoma. TECHNIQUE: CT scan of the abdomen and pelvis with and without contrast was performed. The patient was scanned both before and following the uncomplicated intravenous administration of 100 cc of Vis ipaque 320. Arterial and venous phase scanning following contrast administration was performed. Amish ginal precontrast scan obtained on 08/31/2016 however due to contrast extravasation, postcontrast sc ans were obtained on 09/01/2016. 800 cc of Volumen administered orally. Coronal and sagittal reform atted images were obtained from the axial source images. Images were reviewed on a high-resolution [employer] workstation. Total DLP = 686 mGy-cm. CTDIVol = 12 mGy. COMPARISON: 02/11/2016 FINDINGS: CT abdomen and pelvis: The lung bases are clear. The heart size is normal in size. The liver is normal in size and densit y without focal mass or intrahepatic biliary dilatation. The spleen is normal in size and homogeneo us in density. The pancreas is atrophic without evidence of mass or ductal dilatation.. The gallb ladder has been removed. There is physiologic ectasia of the common bile duct unchanged.. The adre nal glands are normal. The kidneys are symmetrically unremarkable. No urolithiasis, obstructive ur opathy, or solid mass lesion is seen. The stomach is partially collapsed, but is grossly unremarkable. There is a moderate hiatal hernia. Postsurgical changes are seen in the gastric fundus from prior bypass surgery. The small bowels are mildly distended throughout the abdomen.. The colon and rectum are mildly distended with retained f eces.. The pelvic organs are normal. The bladder is partially decompressed with balloon tip Bojorquez c atheter in place.. There is no abdominal or pelvic adenopathy, free fluid, free air, mass or mesente julia inflammation. The aorta is normal in caliber. The osseous structures are unremarkable. No osteolytic or osteoblast ic lesions are identified. There is mild diffuse subcutaneous edema and pelvis.. IMPRESSION: 1. Status post cholecystectomy with physiologic ectasia of the common bile duct. 2. Moderate hiatal hernia. 3. Status post gastric bypass surgery. 4. Mild small and large bowel distension suggestive of ileus. 5. Diffuse subcutaneous edema. 6. Otherwise unremarkable multiphasic CT abdomen and pelvis without acute pathology identified. The re is no CT evidence of cirrhosis or pancreatic mass. Overall findings appear unchanged since prior exam. RPTAT: QQ .Bruno Rubio MD, MD Date Time Electronically viewed and signed by .Bruno Rubio MD, MD on 09/01/2016 19:06 .L/
[2016-09-01 19:25] VITALS: BP 137/89; RESP 20
[2016-09-01] MEDS: TOLTERODINE (SR) 2 MG CAP PO SCH (21:21)
[2016-09-01] MEDS: MONTELUKAST 10 MG TAB PO SCH (21:22)
[2016-09-01] MEDS ORDERED: VITAMIN A & D 5 GM OINT PACKET TOP ONE (22:14)
[2016-09-02] MEDS: morphine 4 MG/ML VIAL IV PRN ×8 (00:15→21:50)
[2016-09-02] MEDS: VANCOMYCIN 750 MG in SOD CHLORIDE 0.9% 150 ML IVPB SCH ×2 (00:25→12:36)
[2016-09-02 05:59] LABS: ADD SCAN DIFF NO
[2016-09-02 06:13] LABS: HEMATOCRIT 27.8 % (37.0-47.0); LYMPHOCYTES # 0.8 10^3/ul (0.8-2.9); LYMPHOCYTES % 7.3 % (15.0-51.0); MEAN CORPUSCULAR HEMOGLOBIN 30.7 pg (29.0-33.0); MEAN CORPUSCULAR HGB CONC 32.4 g/dl (32.0-37.0); MEAN CORPUSCULAR VOLUME 94.9 fl (82.0-101.0); MEAN PLATELET VOLUME 9.7 fl (7.4-10.4); MONOCYTE # 0.6 10^3/ul (0.3-0.9); MONOCYTES % 5.6 % (0.0-11.0); NEUTROPHIL # 9.5 10^3/ul (1.6-7.5); NEUTROPHILS % 86.5 % (39.0-77.0); PLATELET COUNT 303 10^3/UL (140-415); RED BLOOD COUNT 2.93 10^6/ul (4.20-5.40); RED CELL DISTRIBUTION WIDTH 17.7 % (11.5-14.5)
[2016-09-02] MEDS: FUROSEMIDE 40 MG INJ IV SCH (06:37)
[2016-09-02] MEDS: LEVOTHYROXINE 150 MCG TAB PO SCH (06:37)
[2016-09-02 06:42] LABS: CALCIUM 8.2 mg/dl (8.4-10.2); CREATININE 0.66 mg/dl (0.44-1.00); POTASSIUM 3.5 mmol/L (3.5-5.1)
[2016-09-02 08:07] VITALS: BP 129/92; RESP 18
[2016-09-02] MEDS: LACTOBACILLUS RHAMNOSUS CAP PO SCH ×2 (09:24→20:31)
[2016-09-02] MEDS: GABAPENTIN 300 MG CAP PO SCH ×3 (09:24→20:30)
[2016-09-02] MEDS: THIAMINE 100 MG TAB PO SCH (09:24)
[2016-09-02] MEDS: FAMOTIDINE 20 MG TAB PO SCH (09:24)
[2016-09-02] MEDS: VENLAFAXINE 75 MG TABLET PO SCH ×2 (09:24→20:30)
[2016-09-02] MEDS: MULTIVITAMINS/MINERALS TAB PO SCH (09:24)
[2016-09-02] MEDS: FOLIC ACID 1 MG TAB PO SCH (09:24)
[2016-09-02] MEDS: MULTIVIT/MIN/FOLATE/IRON/PREN TAB PO SCH (09:24)
[2016-09-02] MEDS: MUPIROCIN 2% 22 GM OINT TOP SCH ×2 (09:25→20:31)
[2016-09-02] MEDS: METHYLPREDNISOLONE 40 MG INJ IV SCH ×2 (09:25→20:28)
[2016-09-02] MEDS: FLUTICASONE 0.05% 16 GM NAS SPRAY NASAL SCH (09:25)
[2016-09-02] MEDS: HEPARIN 5,000 UNIT/0.5 ML VIAL SC SCH ×2 (09:28→20:41)
[2016-09-02] MEDS: morphine (ER) 30 MG TAB PO SCH ×2 (10:30→20:31)
[2016-09-02] MEDS: AZTREONAM 2 GM in SOD CHLORIDE 0.9% 100 ML IVPB SCH ×2 (11:06→20:29)
[2016-09-02] MEDS ORDERED: NA PHOSPHATE/BIPHOS 133 ML ENEMA PR ONE ×2 (13:30→17:30)
--- NOTE | 2016-09-02 13:54 | PN ---
Date/Time of Note Date/Time of Note DATE: 09/02/16 TIME: 13:40 Assessment/Plan VTE Prophylaxis VTE Prophylaxis Intervention: heparin Lines/Catheters IV Catheter Type (from Nrsg): PICC Line Central line still needed: Yes Urinary Cath still in place: Yes Reason Cath still needed: urinary retention Assessment/Plan Chief Complaint/Hosp Course ASSESSMENT AND PLAN: 46-year-old female with history of chronic pain syndrome, prior alcohol use, pain and opioid dependence, cirrhosis, hypothyroidism, history of gastric bypass surgery and depression, who presents with weakness and bilateral hands and lower extremity rash and cellulitis with possible bullous skin findings as well. 1. Bilateral cellulitis and rash in the hands and feet again along with bullous findings - was improving, but redness in palms more pronounced now. There appears to be improvement in the redness and symptoms in B/L LE. Less warmth. Unclear if this is pemphigus. In any event, the patient has family member, specifically mom has a history of lupus. The patient has had this on and off rash going on for the last few months. She has had at least 3 or 4 admissions to the hospital because of this. SHARONA neg. anti-double stranded DNA = nL levels; antismooth muscle antibody test are pending. Complement 3 was low, complement 4 levels are normal. - Follow up the final results of these tests. Based on prelim results, does not appear to be lupus at this point. - continue steroids (tapering down) and broad-spectrum antibiotics. - Tylenol p.r.n. pain, fevers. - kenalog cream to palms today BID - Follow up recommendations from wound consult care team and ID team as well. 2. LE swelling - looking back at last CT A/P, this was Jan 2016 - and it actually showed nL liver contour at that time - so unclear if pt actually has cirrhosis. Again, she has lower extremity edema as well. She is on Lasix as well. ECHO performed and CT A/P with pancreatic protocol (see results below) - actually shows no signs of pancreas mass or any cirrhosis. She has less lower extremity edema since admission on Lasix IV. BNP = 2300. - Monitor BUN and creatinine levels, monitor urine output, monitor the lower extremity swelling as well. - continue IV lasix for now 3. History of depression. Continue Effexor and trazodone. 4. Chronic pain syndrome and history of opioid dependence. Appreciate pain management consult recommendations. - Continue MS Contin at current dose, morphine sulfate IV p.r.n. 5. History of hypothyroidism. - Continue levothyroxine. Also, follow up OT and PT consults, those are pending. 6. History of gastric bypass. Continue to monitor for now. 7. Gastrointestinal prophylaxis. Pepcid. 8. Deep venous thrombosis prophylaxis. Heparin subcutaneously. 10. elevated tumor markers - last admission one month ago she was evaluated by Heme/Onc team who determined her elevated tumor markers was a non-specific finding, likely non-cancer related. But they recommended repeat tumor markers as outpt, they are still elevated on repeat draws this admission. Pt also complains of some lymph node enlargement in her inguinal areas B/L. CT A/P with pancreatic protocol (see results below) - actually shows no signs of pancreas mass or any cirrhosis. - f/u GI consult rec's - for EGD tomorrow - will reconsult Heme/Onc team to evalutate the elevated tumor markers and consideration for possible BM biopsy? Dispo: with pt's palmar rash reappearing, may need transfer to teaching facility (ie: [facility], [facility], [facility]) for further derm workup (ie: pemphigus or other ), especially if EGD results neg, and no further Heme/Onc rec's. F/u final lupus w/u lab's, and HIV test (pending) Problems: Subjective 24 Hr Interval Summary Free Text/Dictation Pt complaining of redness in palms again. Seen by GI team, Ct A/P performed. Exam/Review of Systems Vital Signs Vitals Vital Signs Date Time Temp Pulse Resp B/P Pulse Ox O2 Delivery O2 Flow Rate FiO2 09/02/16 08:07 98.1 102 18 129/92 97 Intake and Output 09/01/16 09/01/16 09/02/16 15:00 23:00 07:00 Intake Total 100 ml 1330 ml 950 ml Output Total 2100 ml 2000 ml Balance 100 ml -770 ml -1050 ml Exam GENERAL: The patient is lying in bed, answering questions. No acute distress. HEENT: Pupils equal, round, react to light. Extraocular muscles intact. NECK: Supple, no thyromegaly. LUNGS: Clear to auscultation bilaterally. CARDIOVASCULAR: S1, S2 heard. No rubs or gallops. ABDOMEN: Soft, nontender, nondistended. Normal bowel sounds. No rebound or guarding. MUSCULOSKELETAL: Decreased redness on her anterior thighs and feet. 1+ pitting edema bilateral lower extremities to the mid calves now. Less warm and red, right greater than left, but again improved since yesterday. Bilateral hands on the palmar aspects actually show increased redness, some warmth. Some + bullous findings on the bilateral heels of the feet, dry blisters, no discharge noted. NEUROLOGIC: No focal deficits. Results Result Diagram: 09/02/1615 09/02/1615 Results 24 hrs Laboratory Tests Test 09/02/16 05:15 White Blood Count 11.0 #H Red Blood Count 2.93 L Hemoglobin 9.0 L Hematocrit 27.8 L Mean Corpuscular Volume 94.9 Mean Corpuscular Hemoglobin 30.7 Mean Corpuscular Hemoglobin Concent 32.4 Red Cell Distribution Width 17.7 H Platelet Count 303 Mean Platelet Volume 9.7 Neutrophils % 86.5 H Lymphocytes % 7.3 L Monocytes % 5.6 Eosinophils % 0.0 Basophils % 0.0 Nucleated Red Blood Cells % 0.0 Neutrophils # 9.5 H Lymphocytes # 0.8 Monocytes # 0.6 Eosinophils # 0.0 Basophils # 0.0 Nucleated Red Blood Cells # 0.0 Sodium Level 139 Potassium Level 3.5 Chloride Level 101 Carbon Dioxide Level 32 H Anion Gap 10 Blood Urea Nitrogen 12 Creatinine 0.66 Glucose Level 119 Calcium Level 8.2 L Medications Medications Current Medications Famotidine (Pepcid) 20 mg DAILY PO Last administered on 09/02/16 09:24; Admin Dose 20 MG; Start 08/29/16 at 09:00 Thiamine HCl (Vitamin B1) 100 mg DAILY PO Last administered on 09/02/16 09:24 ; Admin Dose 100 MG; Start 08/29/16 at 09:00 Gabapentin (Neurontin) 300 mg TID PO Last administered on 09/02/16 12:41; Admin Dose 300 MG; Start 08/29/16 at 09:00 Levothyroxine Sodium (Synthroid) 150 mcg DAILY@06 PO Last administered on 06:37; Admin Dose 150 MCG; Start 08/29/16 at 06:00 Folic Acid (Folic Acid) 1 mg DAILY PO Last administered on 09/02/16 09:24; Admin Dose 1 MG; Start 08/29/16 at 09:00 Montelukast Sodium (Singulair) 10 mg HS PO Last administered on 09/01/16 21:22 ; Admin Dose 10 MG; Start 08/29/16 at 21:00 Multivitamins/ Minerals (Theragran-M) 1 tab DAILY PO Last administered on 09:24; Admin Dose 1 TAB; Start 08/29/16 at 09:00 Ondansetron HCl (Zofran Inj) 4 mg Q6H PRN IV NAUSEA AND/OR VOMITING; Start 08/29 at 00:30 Heparin Sodium (Porcine) (Heparin (5000 Units/0.5 ml)) 5,000 unit BID SC Last administered on 09/02/16 09:28; Admin Dose 5,000 UNIT; Start 08/29/16 at 09:00 Trazodone HCl (Desyrel) 50 mg HS PO Last administered on 09/01/16 00:21; Admin Dose 50 MG; Start 08/29/16 at 21:00 Venlafaxine HCl (Effexor) 150 mg DAILY PO Last administered on 09/02/16 09:24 ; Admin Dose 150 MG; Start 08/29/16 at 09:00 Venlafaxine HCl 75 mg 75 mg HS PO Last administered on 09/01/16 21:22; Admin Dose 75 MG; Start 08/29/16 at 21:00 Aztreonam/Sodium Chloride (Azactam/NS) 100 ml @ 100 mls/hr Q12 IVPB Last administered on 09/02/16 11:06; Admin Dose 100 MLS/HR; Start 08/29/16 at 11:30 Prenat Multivit/ [place]/Iron/Folic Ac ( S) 1 tab DAILY PO Last administered on 09/02/16 09:24; Admin Dose 1 TAB; Start 08/29/16 at 14:30 Lactobacillus Acidophilus/ Rhamnosus (Culturelle) 1 cap BID PO Last administered on 09/02/16 09:24; Admin Dose 1 CAP; Start 08/29/16 at 14:30 Morphine Sulfate (Ms Contin (Er)) 30 mg BID PO Last administered on 09/02/16 10:30; Admin Dose 30 MG; Start 08/29/16 at 21:00 Morphine Sulfate (morphine) 3 mg Q3H PRN IV BREAKTHROUGH PAIN Last administered on 09/02/16 12:36; Admin Dose 3 MG; Start 08/29/16 at 18:00 Fluticasone Propionate (Flonase 0.05% Nasal) 1 spray DAILY NASAL Last administered on 09/02/16 09:25; Admin Dose 1 SPRAY; Start 08/30/16 at 13:30 Methylprednisolone Sodium Succinate (Solu-Medrol) 40 mg BID IV Last administered on 09/02/16 09:25; Admin Dose 40 MG; Start 08/31/16 at 21:00 Furosemide (Lasix) 40 mg DAILY@06 IV Last administered on 09/02/16 06:37; Admin Dose 40 MG; Start 09/01/16 at 06:00 Mupirocin (Bactroban) 1 applic BID TOP Last administered on 09/02/16 09:25; Admin Dose 1 APPLIC; Start 08/31/16 at 12:30 Tolterodine Tartrate 2 mg 2 mg QHS PO Last administered on 09/01/16 21:21; Admin Dose 2 MG; Start 08/31/16 at 21:00 Vancomycin HCl/ Sodium Chloride (Vancocin/NS) 150 ml @ 75 mls/hr Q12H IVPB Last administered on 09/02/16 12:36; Admin Dose 75 MLS/HR; Start 09/01/16 at 12 :00 IV Flush (NS 10 ml) 10 ml PRN PRN IV FLUSH LINE; Start 09/01/16 at 19:30 Miscellaneous Information (*Rx Drug Level Order Reminder*) VANCOMYCIN TROUGH AT 2300 ONCE ONCE XX ; Start 09/02/16 at 23:00; Stop 09/02/16 at 23:01 Triamcinolone Acetonide (Kenalog 0.025% Lotion) 1 applic BID TOP ; Start at 14:00; Status UNV Procedures Procedures CT A/P with pancreatic protocol: IMPRESSION: 1. Status post cholecystectomy with physiologic ectasia of the common bile duct. 2. Moderate hiatal hernia. 3. Status post gastric bypass surgery. 4. Mild small and large bowel distension suggestive of ileus. 5. Diffuse subcutaneous edema. 6. Otherwise unremarkable multiphasic CT abdomen and pelvis without acute pathology identified. There is no CT evidence of cirrhosis or pancreatic mass. Overall findings appear unchanged since prior exam. TOSIN ENCARNACION. Sep 02, 2016 13:54
[2016-09-02] MEDS: TRIAMCINOLONE ACET 0.025% 60 ML LOT TOP SCH ×2 (15:32→20:32)
[2016-09-02] MEDS: LACTULOSE 30ML CUP PO SCH ×2 (18:31→21:49)
--- NOTE | 2016-09-02 19:10 | CONS ---
Date/Time of Note Date/Time of Note DATE: 09/02/16 TIME: 19:08 Assessment/Plan Assessment/Plan Additional Assessment/Plan IMPRESSION: 1. Bilateral cellulitis of the hands and feet with a bullous finding, much improved on a steroid and antibiotic. 2. Depression. 3. Chronic pain syndrome. 4. Hypothyroidism. 5. Status post gastric bypass surgery. 6. Elevated CA 19-9 and CEA. 7. Severe palmar erythema 8. Hypoalbuminemia Plan CT scan abdomen negative,EGD tomorrow Consultation Date/Type/Reason Admit Date/Time Aug 28, 2016 at 22:59 Type of Consultation: ID [id number] HR Interval Summary Free Text/Dictation abdominal pain Exam/Review of Systems Vital Signs Vitals Vital Signs Date Time Temp Pulse Resp B/P Pulse Ox O2 Delivery O2 Flow Rate FiO2 09/02/16 08:07 98.1 102 18 129/92 97 Intake and Output 09/01/16 09/01/16 09/02/16 15:00 23:00 07:00 Intake Total 100 ml 1330 ml 950 ml Output Total 2100 ml 2000 ml Balance 100 ml -770 ml -1050 ml Exam Constitutional: alert, oriented, well developed Psych: nl mood/affect, no complaints Head: atraumatic, normocephalic Eyes: EOMI, PERRL, nl conjunctiva, nl lids, nl sclera ENMT: nl external ears & nose, nl lips & teeth, nl nasal mucosa & septum Neck: non-tender, supple Respiratory: clear to auscultation, normal air movement Cardiovascular: nl pulses, regular rate and rhythm Gastrointestinal: nl liver, spleen, non-tender, soft Musculoskeletal: nl extremities to inspection, nl gait and stance Extremities: normal pulses Neurological: [employer] II-XII intact, nl mental status, nl speech, nl strength Skin: nl turgor, No rash or lesions Lymph: nl lymph nodes Results Result Diagram: 09/02/16 0515 09/02/16 0515 Results 24 hrs Laboratory Tests Test 09/02/16 05:15 09/02/16 14:25 White Blood Count 11.0 #H Red Blood Count 2.93 L Hemoglobin 9.0 L Hematocrit 27.8 L Mean Corpuscular Volume 94.9 Mean Corpuscular Hemoglobin 30.7 Mean Corpuscular Hemoglobin Concent 32.4 Red Cell Distribution Width 17.7 H Platelet Count 303 Mean Platelet Volume 9.7 Neutrophils % 86.5 H Lymphocytes % 7.3 L Monocytes % 5.6 Eosinophils % 0.0 Basophils % 0.0 Nucleated Red Blood Cells % 0.0 Neutrophils # 9.5 H Lymphocytes # 0.8 Monocytes # 0.6 Eosinophils # 0.0 Basophils # 0.0 Nucleated Red Blood Cells # 0.0 Sodium Level 139 Potassium Level 3.5 Chloride Level 101 Carbon Dioxide Level 32 H Anion Gap 10 Blood Urea Nitrogen 12 Creatinine 0.66 Glucose Level 119 Calcium Level 8.2 L Ammonia 34 H HIV (1&2) Antibody NEGATIVE Medications Medications Current Medications Famotidine (Pepcid) 20 mg DAILY PO Last administered on 09/02/16 09:24; Admin Dose 20 MG; Start 08/29/16 at 09:00 Thiamine HCl (Vitamin B1) 100 mg DAILY PO Last administered on 09/02/16 09:24 ; Admin Dose 100 MG; Start 08/29/16 at 09:00 Gabapentin (Neurontin) 300 mg TID PO Last administered on 09/02/16 12:41; Admin Dose 300 MG; Start 08/29/16 at 09:00 Levothyroxine Sodium (Synthroid) 150 mcg DAILY@06 PO Last administered on 06:37; Admin Dose 150 MCG; Start 08/29/16 at 06:00 Folic Acid (Folic Acid) 1 mg DAILY PO Last administered on 09/02/16 09:24; Admin Dose 1 MG; Start 08/29/16 at 09:00 Montelukast Sodium (Singulair) 10 mg HS PO Last administered on 09/01/16 21:22 ; Admin Dose 10 MG; Start 08/29/16 at 21:00 Multivitamins/ Minerals (Theragran-M) 1 tab DAILY PO Last administered on 09:24; Admin Dose 1 TAB; Start 08/29/16 at 09:00 Ondansetron HCl (Zofran Inj) 4 mg Q6H PRN IV NAUSEA AND/OR VOMITING; Start 08/29 at 00:30 Heparin Sodium (Porcine) (Heparin (5000 Units/0.5 ml)) 5,000 unit BID SC Last administered on 09/02/16 09:28; Admin Dose 5,000 UNIT; Start 08/29/16 at 09:00 Trazodone HCl (Desyrel) 50 mg HS PO Last administered on 09/01/16 00:21; Admin Dose 50 MG; Start 08/29/16 at 21:00 Venlafaxine HCl (Effexor) 150 mg DAILY PO Last administered on 09/02/16 09:24 ; Admin Dose 150 MG; Start 08/29/16 at 09:00 Venlafaxine HCl 75 mg 75 mg HS PO Last administered on 09/01/16 21:22; Admin Dose 75 MG; Start 08/29/16 at 21:00 Aztreonam/Sodium Chloride (Azactam/NS) 100 ml @ 100 mls/hr Q12 IVPB Last administered on 09/02/16 11:06; Admin Dose 100 MLS/HR; Start 08/29/16 at 11:30 Prenat Multivit/ [place]/Iron/Folic Ac ( S) 1 tab DAILY PO Last administered on 09/02/16 09:24; Admin Dose 1 TAB; Start 08/29/16 at 14:30 Lactobacillus Acidophilus/ Rhamnosus (Culturelle) 1 cap BID PO Last administered on 09/02/16 09:24; Admin Dose 1 CAP; Start 08/29/16 at 14:30 Morphine Sulfate (Ms Contin (Er)) 30 mg BID PO Last administered on 09/02/16 10:30; Admin Dose 30 MG; Start 08/29/16 at 21:00 Morphine Sulfate (morphine) 3 mg Q3H PRN IV BREAKTHROUGH PAIN Last administered on 09/02/16 18:31; Admin Dose 3 MG; Start 08/29/16 at 18:00 Fluticasone Propionate (Flonase 0.05% Nasal) 1 spray DAILY NASAL Last administered on 09/02/16 09:25; Admin Dose 1 SPRAY; Start 08/30/16 at 13:30 Methylprednisolone Sodium Succinate (Solu-Medrol) 40 mg BID IV Last administered on 09/02/16 09:25; Admin Dose 40 MG; Start 08/31/16 at 21:00 Furosemide (Lasix) 40 mg DAILY@06 IV Last administered on 09/02/16 06:37; Admin Dose 40 MG; Start 09/01/16 at 06:00 Mupirocin (Bactroban) 1 applic BID TOP Last administered on 09/02/16 09:25; Admin Dose 1 APPLIC; Start 08/31/16 at 12:30 Tolterodine Tartrate 2 mg 2 mg QHS PO Last administered on 09/01/16 21:21; Admin Dose 2 MG; Start 08/31/16 at 21:00 Vancomycin HCl/ Sodium Chloride (Vancocin/NS) 150 ml @ 75 mls/hr Q12H IVPB Last administered on 09/02/16 12:36; Admin Dose 75 MLS/HR; Start 09/01/16 at 12 :00 IV Flush (NS 10 ml) 10 ml PRN PRN IV FLUSH LINE; Start 09/01/16 at 19:30 Miscellaneous Information (*Rx Drug Level Order Reminder*) VANCOMYCIN TROUGH AT 2300 ONCE ONCE XX ; Start 09/02/16 at 23:00; Stop 09/02/16 at 23:01 Triamcinolone Acetonide (Kenalog 0.025% Lotion) APPLY TO palms of hand BID TOP Last administered on 09/02/16 15:32; Admin Dose 1 APPLIC; Start 09/02/16 at 14: 30 Lactulose (Enulose) 20 gm Q8 PO Last administered on 09/02/16 18:31; Admin Dose 20 GM; Start 09/02/16 at 17:30 AMBER FERRO MD Sep 02, 2016 19:10
[2016-09-02 19:40] VITALS: BP 117/74; RESP 18
[2016-09-02] MEDS: MONTELUKAST 10 MG TAB PO SCH (20:31)
--- NOTE | 2016-09-02 20:45 | CONS ---
Date/Time of Note Date/Time of Note DATE: 09/02/16 TIME: 20:41 Assessment/Plan Assessment/Plan Chief Complaint/Hosp Course SUBJECTIVE: No acute changes. The patient is alert, looks comfortable. No fevers. C/o pain in her palms MICROBIOLOGY: Cultures remain negative. ANTIMICROBIALS: Vancomycin, Aztreonam==> day #5. ALLERGIES: 1. PENICILLIN. 2. SULFA. 3. CEFACLOR. PHYSICAL EXAMINATION: GENERAL: This is a cachectic, well-developed, middle-aged woman, who is alert, in no distress. HEENT: Head atraumatic, normocephalic. Sclerae anicteric. Buccal mucosa pink. NECK: Supple. CHEST: Chest rise is symmetrical. Breath sounds clear. HEART: S1, S2. ABDOMEN: Soft. Bowel tones present. EXTREMITIES: With bilateral edema, erythema, left lower extremity more than right, with multiple lesions and peeling skin peeling, mostly on the soles and palms. ASSESSMENT: 1. B lower extremity cellulitis, left more than right, with peeling of the skin on palms and soles==> now with skin completed peeled of her palms with erythema 2. History of ETOH abuse. 3. History of recurrent sepsis, urinary tract infection, pneumonia. 4. Cachexia and chronic pain syndrome. 5. Alcoholic liver cirrhosis. 6. History of gastric bypass surgery in the past. 7. Elevated CA 19-9 and CEA. 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 PLAN: Clinically stable. Continue the present care. Continue on the current antibiotics. Apply moisturizer to palms [facility] staff Problems: Consultation Date/Type/Reason Admit Date/Time Aug 28, 2016 at 22:59 Type of Consultation: ID Exam/Review of Systems Vital Signs Vitals Vital Signs Date Time Temp Pulse Resp B/P Pulse Ox O2 Delivery O2 Flow Rate FiO2 09/02/16 19:40 97.6 106 18 117/74 97 Intake and Output 09/01/16 09/01/16 09/02/16 15:00 23:00 07:00 Intake Total 100 ml 1330 ml 950 ml Output Total 2100 ml 2000 ml Balance 100 ml -770 ml -1050 ml Results Result Diagram: 09/02/16 0515 09/02/16 0515 Results 24 hrs Laboratory Tests Test 09/02/16 05:15 09/02/16 14:25 White Blood Count 11.0 #H Red Blood Count 2.93 L Hemoglobin 9.0 L Hematocrit 27.8 L Mean Corpuscular Volume 94.9 Mean Corpuscular Hemoglobin 30.7 Mean Corpuscular Hemoglobin Concent 32.4 Red Cell Distribution Width 17.7 H Platelet Count 303 Mean Platelet Volume 9.7 Neutrophils % 86.5 H Lymphocytes % 7.3 L Monocytes % 5.6 Eosinophils % 0.0 Basophils % 0.0 Nucleated Red Blood Cells % 0.0 Neutrophils # 9.5 H Lymphocytes # 0.8 Monocytes # 0.6 Eosinophils # 0.0 Basophils # 0.0 Nucleated Red Blood Cells # 0.0 Sodium Level 139 Potassium Level 3.5 Chloride Level 101 Carbon Dioxide Level 32 H Anion Gap 10 Blood Urea Nitrogen 12 Creatinine 0.66 Glucose Level 119 Calcium Level 8.2 L Ammonia 34 H HIV (1&2) Antibody NEGATIVE Medications Medications Current Medications Famotidine (Pepcid) 20 mg DAILY PO Last administered on 09/02/16 09:24; Admin Dose 20 MG; Start 08/29/16 at 09:00 Thiamine HCl (Vitamin B1) 100 mg DAILY PO Last administered on 09/02/16 09:24 ; Admin Dose 100 MG; Start 08/29/16 at 09:00 Gabapentin (Neurontin) 300 mg TID PO Last administered on 09/02/16 20:30; Admin Dose 300 MG; Start 08/29/16 at 09:00 Levothyroxine Sodium (Synthroid) 150 mcg DAILY@06 PO Last administered on 06:37; Admin Dose 150 MCG; Start 08/29/16 at 06:00 Folic Acid (Folic Acid) 1 mg DAILY PO Last administered on 09/02/16 09:24; Admin Dose 1 MG; Start 08/29/16 at 09:00 Montelukast Sodium (Singulair) 10 mg HS PO Last administered on 09/02/16 20:31 ; Admin Dose 10 MG; Start 08/29/16 at 21:00 Multivitamins/ Minerals (Theragran-M) 1 tab DAILY PO Last administered on 09:24; Admin Dose 1 TAB; Start 08/29/16 at 09:00 Ondansetron HCl (Zofran Inj) 4 mg Q6H PRN IV NAUSEA AND/OR VOMITING; Start 08/29 at 00:30 Heparin Sodium (Porcine) (Heparin (5000 Units/0.5 ml)) 5,000 unit BID SC Last administered on 09/02/16 09:28; Admin Dose 5,000 UNIT; Start 08/29/16 at 09:00 Trazodone HCl (Desyrel) 50 mg HS PO Last administered on 09/01/16 00:21; Admin Dose 50 MG; Start 08/29/16 at 21:00 Venlafaxine HCl (Effexor) 150 mg DAILY PO Last administered on 09/02/16 09:24 ; Admin Dose 150 MG; Start 08/29/16 at 09:00 Venlafaxine HCl 75 mg 75 mg HS PO Last administered on 09/02/16 20:30; Admin Dose 75 MG; Start 08/29/16 at 21:00 Aztreonam/Sodium Chloride (Azactam/NS) 100 ml @ 100 mls/hr Q12 IVPB Last administered on 09/02/16 20:29; Admin Dose 100 MLS/HR; Start 08/29/16 at 11:30 Prenat Multivit/ [place]/Iron/Folic Ac ( S) 1 tab DAILY PO Last administered on 09/02/16 09:24; Admin Dose 1 TAB; Start 08/29/16 at 14:30 Lactobacillus Acidophilus/ Rhamnosus (Culturelle) 1 cap BID PO Last administered on 09/02/16 20:31; Admin Dose 1 CAP; Start 08/29/16 at 14:30 Morphine Sulfate (Ms Contin (Er)) 30 mg BID PO Last administered on 09/02/16 20:31; Admin Dose 30 MG; Start 08/29/16 at 21:00 Morphine Sulfate (morphine) 3 mg Q3H PRN IV BREAKTHROUGH PAIN Last administered on 09/02/16 18:31; Admin Dose 3 MG; Start 08/29/16 at 18:00 Fluticasone Propionate (Flonase 0.05% Nasal) 1 spray DAILY NASAL Last administered on 09/02/16 09:25; Admin Dose 1 SPRAY; Start 08/30/16 at 13:30 Methylprednisolone Sodium Succinate (Solu-Medrol) 40 mg BID IV Last administered on 09/02/16 20:28; Admin Dose 40 MG; Start 08/31/16 at 21:00 Furosemide (Lasix) 40 mg DAILY@06 IV Last administered on 09/02/16 06:37; Admin Dose 40 MG; Start 09/01/16 at 06:00 Mupirocin (Bactroban) 1 applic BID TOP Last administered on 09/02/16 20:31; Admin Dose 1 APPLIC; Start 08/31/16 at 12:30 Tolterodine Tartrate 2 mg 2 mg QHS PO Last administered on 09/01/16 21:21; Admin Dose 2 MG; Start 08/31/16 at 21:00 Vancomycin HCl/ Sodium Chloride (Vancocin/NS) 150 ml @ 75 mls/hr Q12H IVPB Last administered on 09/02/16 12:36; Admin Dose 75 MLS/HR; Start 09/01/16 at 12 :00 IV Flush (NS 10 ml) 10 ml PRN PRN IV FLUSH LINE; Start 09/01/16 at 19:30 Miscellaneous Information (*Rx Drug Level Order Reminder*) VANCOMYCIN TROUGH AT 2300 ONCE ONCE XX ; Start 09/02/16 at 23:00; Stop 09/02/16 at 23:01 Triamcinolone Acetonide (Kenalog 0.025% Lotion) APPLY TO palms of hand BID TOP Last administered on 09/02/16 20:32; Admin Dose 1 APPLIC; Start 09/02/16 at 14: 30 Lactulose (Enulose) 20 gm Q8 PO Last administered on 09/02/16 18:31; Admin Dose 20 GM; Start 09/02/16 at 17:30 SAMEER ESQUEDA NP Sep 02, 2016 20:45
[2016-09-02] MEDS: traZODone 50 MG TAB PO SCH (21:00)
[2016-09-02] MEDS: TOLTERODINE (SR) 2 MG CAP PO SCH (21:49)
[2016-09-03] VITALS (9 sets, daily range): BP systolic 136–157; BP diastolic 87–106; PULSE 80–101; RESP 15–36
[2016-09-03] MEDS: traZODone 50 MG TAB PO SCH (00:21)
[2016-09-03] MEDS: VANCOMYCIN 750 MG in SOD CHLORIDE 0.9% 150 ML IVPB SCH ×3 (01:20→14:24)
[2016-09-03] MEDS: morphine 4 MG/ML VIAL IV PRN ×5 (01:21→21:30)
[2016-09-03] MEDS: LEVOTHYROXINE 150 MCG TAB PO SCH (06:00)
[2016-09-03] MEDS: FUROSEMIDE 40 MG INJ IV SCH ×2 (06:00→10:39)
[2016-09-03] MEDS: LACTULOSE 30ML CUP PO SCH ×3 (06:00→21:35)
[2016-09-03 06:38] LABS: ADD SCAN DIFF NO
[2016-09-03 06:54] LABS: HEMATOCRIT 26.7 % (37.0-47.0); HEMOGLOBIN 8.5 g/dl (12.0-16.0); LYMPHOCYTES # 1.1 10^3/ul (0.8-2.9); LYMPHOCYTES % 14.9 % (15.0-51.0); MEAN CORPUSCULAR HEMOGLOBIN 30.9 pg (29.0-33.0); MEAN CORPUSCULAR HGB CONC 31.8 g/dl (32.0-37.0); MEAN CORPUSCULAR VOLUME 97.1 fl (82.0-101.0); MONOCYTE # 0.3 10^3/ul (0.3-0.9); MONOCYTES % 3.8 % (0.0-11.0); NEUTROPHIL # 6.2 10^3/ul (1.6-7.5); NEUTROPHILS % 80.8 % (39.0-77.0); PLATELET COUNT 268 10^3/UL (140-415); RED BLOOD COUNT 2.75 10^6/ul (4.20-5.40); RED CELL DISTRIBUTION WIDTH 17.9 % (11.5-14.5); WHITE BLOOD COUNT 7.6 10^3/ul (4.8-10.8)
[2016-09-03] MEDS ORDERED: LIDOCAINE 2% (SDV) 5 ML INJ ONE (07:00)
[2016-09-03 07:06] LABS: CALCIUM 8.5 mg/dl (8.4-10.2); CREATININE 0.61 mg/dl (0.44-1.00); POTASSIUM 3.6 mmol/L (3.5-5.1)
[2016-09-03] MEDS: FAMOTIDINE 20 MG TAB PO SCH ×2 (09:00→10:38)
[2016-09-03] MEDS: HEPARIN 5,000 UNIT/0.5 ML VIAL SC SCH ×2 (09:00→21:00)
[2016-09-03] MEDS: GABAPENTIN 300 MG CAP PO SCH ×5 (09:00→21:32)
[2016-09-03] MEDS: THIAMINE 100 MG TAB PO SCH ×2 (09:00→10:38)
[2016-09-03] MEDS: LACTOBACILLUS RHAMNOSUS CAP PO SCH ×3 (09:00→21:31)
[2016-09-03] MEDS: MUPIROCIN 2% 22 GM OINT TOP SCH ×3 (09:00→21:36)
[2016-09-03] MEDS: morphine (ER) 30 MG TAB PO SCH ×3 (09:00→21:59)
[2016-09-03] MEDS: FLUTICASONE 0.05% 16 GM NAS SPRAY NASAL SCH ×2 (09:00→10:40)
[2016-09-03] MEDS: TRIAMCINOLONE ACET 0.025% 60 ML LOT TOP SCH ×3 (09:00→21:37)
[2016-09-03] MEDS: FOLIC ACID 1 MG TAB PO SCH ×2 (09:00→10:39)
[2016-09-03] MEDS: MULTIVIT/MIN/FOLATE/IRON/PREN TAB PO SCH ×2 (09:00→10:38)
[2016-09-03] MEDS: METHYLPREDNISOLONE 40 MG INJ IV SCH ×3 (09:00→21:33)
[2016-09-03] MEDS: MULTIVITAMINS/MINERALS TAB PO SCH ×2 (09:00→10:38)
[2016-09-03] MEDS: VENLAFAXINE 75 MG TABLET PO SCH ×3 (09:00→21:35)
[2016-09-03] MEDS: AZTREONAM 2 GM in SOD CHLORIDE 0.9% 100 ML IVPB SCH ×2 (09:44→21:35)
--- NOTE | 2016-09-03 10:49 | CONS ---
Date/Time of Note Date/Time of Note DATE: 09/03/16 TIME: 10:43 Consultation Date/Type/Reason Admit Date/Time Aug 28, 2016 at 22:59 Initial Consult Date Type of Consultation: ID 24 HR Interval Summary Free Text/Dictation HISTORY OF PRESENT ILLNESS: This is a 46-year-old female who is well known to me from prior hospitalizations who presented at this time with left lower extremity cellulitis and groin cellulitis. Patient was admitted primarily for left lower extremity cellulitis but diffuse rash in her upper medial aspect of her thigh also. She has a history of chronic pain syndrome that I have seen her for in the past. She describes generalized pain that she was seen by a pain management doctor in the community for. She states that bilateral shoulders and cervical spine has been a constant chronic discomfort. Patient continues to attempt to bargain with me for higher doses of pain control medications. I have discussed her clinical findings with nursing staff and I agree based on physical examination that there are no indications to change her current dose rescheduling of opioids, especially since her left lower extremity cellulitis is improving Constitutional: requiring IVF Exam/Review of Systems Vital Signs Vitals Vital Signs Date Time Temp Pulse Resp B/P Pulse Ox O2 Delivery O2 Flow Rate FiO2 09/02/16 19:40 97.6 106 18 117/74 97 Intake and Output 09/02/16 09/02/16 09/03/16 15:00 23:00 07:00 Intake Total 250 ml 1900 ml 1030 ml Output Total 2100 ml 900 ml Balance 250 ml -200 ml 130 ml Exam Skin: other Additional Comments Left lower extremity rachel decrease in erythema, non-streaking without flocculence , lymphadenopathy and 2+ pitting edema. Results Pain management No change in her current opioid prescribing. Alternative encouragement and distraction. Supportive measures encouraged to patient. Result Diagram: 09/03/16 0615 09/03/16 0615 Results 24 hrs Laboratory Tests Test 09/02/16 14:25 09/02/16 23:10 09/03/16 06:15 Ammonia 34 H HIV (1&2) Antibody NEGATIVE Vancomycin Level Trough 11.1 White Blood Count 7.6 # Red Blood Count 2.75 L Hemoglobin 8.5 L Hematocrit 26.7 L Mean Corpuscular Volume 97.1 Mean Corpuscular Hemoglobin 30.9 Mean Corpuscular Hemoglobin Concent 31.8 L Red Cell Distribution Width 17.9 H Platelet Count 268 Mean Platelet Volume 10.0 Neutrophils % 80.8 H Lymphocytes % 14.9 L Monocytes % 3.8 Eosinophils % 0.0 Basophils % 0.0 Nucleated Red Blood Cells % 0.0 Neutrophils # 6.2 Lymphocytes # 1.1 Monocytes # 0.3 Eosinophils # 0.0 Basophils # 0.0 Nucleated Red Blood Cells # 0.0 Sodium Level 144 Potassium Level 3.6 Chloride Level 105 Carbon Dioxide Level 30 Anion Gap 13 Blood Urea Nitrogen 14 Creatinine 0.61 Glucose Level 94 Calcium Level 8.5 Medications Medications Current Medications Famotidine (Pepcid) 20 mg DAILY PO Last administered on 09/03/16 10:38; Admin Dose 20 MG; Start 08/29/16 at 09:00 Thiamine HCl (Vitamin B1) 100 mg DAILY PO Last administered on 09/03/16 10:38 ; Admin Dose 100 MG; Start 08/29/16 at 09:00 Gabapentin (Neurontin) 300 mg TID PO Last administered on 09/03/16 10:38; Admin Dose 300 MG; Start 08/29/16 at 09:00 Levothyroxine Sodium (Synthroid) 150 mcg DAILY@06 PO Last administered on 06:37; Admin Dose 150 MCG; Start 08/29/16 at 06:00 Folic Acid (Folic Acid) 1 mg DAILY PO Last administered on 09/03/16 10:39; Admin Dose 1 MG; Start 08/29/16 at 09:00 Montelukast Sodium (Singulair) 10 mg HS PO Last administered on 09/02/16 20:31 ; Admin Dose 10 MG; Start 08/29/16 at 21:00 Multivitamins/ Minerals (Theragran-M) 1 tab DAILY PO Last administered on 10:38; Admin Dose 1 TAB; Start 08/29/16 at 09:00 Ondansetron HCl (Zofran Inj) 4 mg Q6H PRN IV NAUSEA AND/OR VOMITING; Start 08/29 at 00:30 Heparin Sodium (Porcine) (Heparin (5000 Units/0.5 ml)) 5,000 unit BID SC Last administered on 09/02/16 09:28; Admin Dose 5,000 UNIT; Start 08/29/16 at 09:00 Trazodone HCl (Desyrel) 50 mg HS PO Last administered on 09/03/16 00:21; Admin Dose 50 MG; Start 08/29/16 at 21:00 Venlafaxine HCl (Effexor) 150 mg DAILY PO Last administered on 09/03/16 10:39 ; Admin Dose 150 MG; Start 08/29/16 at 09:00 Venlafaxine HCl 75 mg 75 mg HS PO Last administered on 09/02/16 20:30; Admin Dose 75 MG; Start 08/29/16 at 21:00 Aztreonam/Sodium Chloride (Azactam/NS) 100 ml @ 100 mls/hr Q12 IVPB Last administered on 09/03/16 09:44; Admin Dose 100 MLS/HR; Start 08/29/16 at 11:30 Prenat Multivit/ [place]/Iron/Folic Ac ( S) 1 tab DAILY PO Last administered on 09/03/16 10:38; Admin Dose 1 TAB; Start 08/29/16 at 14:30 Lactobacillus Acidophilus/ Rhamnosus (Culturelle) 1 cap BID PO Last administered on 09/03/16 10:38; Admin Dose 1 CAP; Start 08/29/16 at 14:30 Morphine Sulfate (Ms Contin (Er)) 30 mg BID PO Last administered on 09/03/16 10:39; Admin Dose 30 MG; Start 08/29/16 at 21:00 Morphine Sulfate (morphine) 3 mg Q3H PRN IV BREAKTHROUGH PAIN Last administered on 09/03/16 09:52; Admin Dose 3 MG; Start 08/29/16 at 18:00 Fluticasone Propionate (Flonase 0.05% Nasal) 1 spray DAILY NASAL Last administered on 09/03/16 10:40; Admin Dose 1 SPRAY; Start 08/30/16 at 13:30 Methylprednisolone Sodium Succinate (Solu-Medrol) 40 mg BID IV Last administered on 09/03/16 09:40; Admin Dose 40 MG; Start 08/31/16 at 21:00 Furosemide (Lasix) 40 mg DAILY@06 IV Last administered on 09/03/16 10:39; Admin Dose 40 MG; Start 09/01/16 at 06:00 Mupirocin (Bactroban) 1 applic BID TOP Last administered on 09/03/16 10:40; Admin Dose 1 APPLIC; Start 08/31/16 at 12:30 Tolterodine Tartrate 2 mg 2 mg QHS PO Last administered on 09/02/16 21:49; Admin Dose 2 MG; Start 08/31/16 at 21:00 Vancomycin HCl/ Sodium Chloride (Vancocin/NS) 150 ml @ 75 mls/hr Q12H IVPB Last administered on 09/03/16 01:20; Admin Dose 75 MLS/HR; Start 09/01/16 at 12 :00 IV Flush (NS 10 ml) 10 ml PRN PRN IV FLUSH LINE; Start 09/01/16 at 19:30 Triamcinolone Acetonide (Kenalog 0.025% Lotion) APPLY TO palms of hand BID TOP Last administered on 09/03/16 10:41; Admin Dose 1 APPLIC; Start 09/02/16 at 14: 30 Lactulose (Enulose) 20 gm Q8 PO Last administered on 09/02/16 21:49; Admin Dose 20 GM; Start 09/02/16 at 17:30 MARIA LUZ MARIE Sep 03, 2016 10:49
--- NOTE | 2016-09-03 12:53 | PN ---
Date/Time of Note Date/Time of Note DATE: 09/03/16 TIME: 12:53 Assessment/Plan VTE Prophylaxis VTE Prophylaxis Intervention: SCD's Lines/Catheters IV Catheter Type (from Nrsg): PICC Line Central line still needed: No Urinary Cath still in place: No Assessment/Plan Assessment/Plan 46-year-old female with history of chronic pain syndrome, prior alcohol use, pain and opioid dependence, cirrhosis, hypothyroidism, history of gastric bypass surgery and depression, presented with weakness and bilateral hands and lower extremity rash #rash: d/dx includes cellulitis v pemphigus v other -abx as advised by ID -cont steroids (topical and systemic) #elevated tumor markers: etio unclear. CT 02/07 without pancreatic/hepatic mass -EGD today #chronic pain: palliative/pain management on consult, appreciate assistance #depression: cont home meds:hypothyroid: cont synthroid dispo pending improvement in rash, EGD results Subjective 24 Hr Interval Summary Free Text/Dictation Pt in endoscopy suite at time of my attempted evaluation (1230pm) Exam/Review of Systems Vital Signs Vitals Vital Signs Date Time Temp Pulse Resp B/P Pulse Ox O2 Delivery O2 Flow Rate FiO2 09/02/16 19:40 97.6 106 18 117/74 97 Intake and Output 09/02/16 09/02/16 09/03/16 15:00 23:00 07:00 Intake Total 250 ml 1900 ml 1030 ml Output Total 2100 ml 900 ml Balance 250 ml -200 ml 130 ml Exam unable to exam pt as she was not in her room at time of my attempted evaluation Results Result Diagram: 09/03/16 0615 09/03/16 0615 Results 24 hrs Laboratory Tests Test 09/02/16 14:25 09/02/16 23:10 09/03/16 06:15 Ammonia 34 H HIV (1&2) Antibody NEGATIVE Vancomycin Level Trough 11.1 White Blood Count 7.6 # Red Blood Count 2.75 L Hemoglobin 8.5 L Hematocrit 26.7 L Mean Corpuscular Volume 97.1 Mean Corpuscular Hemoglobin 30.9 Mean Corpuscular Hemoglobin Concent 31.8 L Red Cell Distribution Width 17.9 H Platelet Count 268 Mean Platelet Volume 10.0 Neutrophils % 80.8 H Lymphocytes % 14.9 L Monocytes % 3.8 Eosinophils % 0.0 Basophils % 0.0 Nucleated Red Blood Cells % 0.0 Neutrophils # 6.2 Lymphocytes # 1.1 Monocytes # 0.3 Eosinophils # 0.0 Basophils # 0.0 Nucleated Red Blood Cells # 0.0 Sodium Level 144 Potassium Level 3.6 Chloride Level 105 Carbon Dioxide Level 30 Anion Gap 13 Blood Urea Nitrogen 14 Creatinine 0.61 Glucose Level 94 Calcium Level 8.5 Medications Medications Current Medications Famotidine (Pepcid) 20 mg DAILY PO Last administered on 09/03/16 10:38; Admin Dose 20 MG; Start 08/29/16 at 09:00 Thiamine HCl (Vitamin B1) 100 mg DAILY PO Last administered on 09/03/16 10:38 ; Admin Dose 100 MG; Start 08/29/16 at 09:00 Gabapentin (Neurontin) 300 mg TID PO Last administered on 09/03/16 10:38; Admin Dose 300 MG; Start 08/29/16 at 09:00 Levothyroxine Sodium (Synthroid) 150 mcg DAILY@06 PO Last administered on 06:37; Admin Dose 150 MCG; Start 08/29/16 at 06:00 Folic Acid (Folic Acid) 1 mg DAILY PO Last administered on 09/03/16 10:39; Admin Dose 1 MG; Start 08/29/16 at 09:00 Montelukast Sodium (Singulair) 10 mg HS PO Last administered on 09/02/16 20:31 ; Admin Dose 10 MG; Start 08/29/16 at 21:00 Multivitamins/ Minerals (Theragran-M) 1 tab DAILY PO Last administered on 10:38; Admin Dose 1 TAB; Start 08/29/16 at 09:00 Ondansetron HCl (Zofran Inj) 4 mg Q6H PRN IV NAUSEA AND/OR VOMITING; Start 08/29 at 00:30 Heparin Sodium (Porcine) (Heparin (5000 Units/0.5 ml)) 5,000 unit BID SC Last administered on 09/02/16 09:28; Admin Dose 5,000 UNIT; Start 08/29/16 at 09:00 Trazodone HCl (Desyrel) 50 mg HS PO Last administered on 09/03/16 00:21; Admin Dose 50 MG; Start 08/29/16 at 21:00 Venlafaxine HCl (Effexor) 150 mg DAILY PO Last administered on 09/03/16 10:39 ; Admin Dose 150 MG; Start 08/29/16 at 09:00 Venlafaxine HCl 75 mg 75 mg HS PO Last administered on 09/02/16 20:30; Admin Dose 75 MG; Start 08/29/16 at 21:00 Aztreonam/Sodium Chloride (Azactam/NS) 100 ml @ 100 mls/hr Q12 IVPB Last administered on 09/03/16 09:44; Admin Dose 100 MLS/HR; Start 08/29/16 at 11:30 Prenat Multivit/ [place]/Iron/Folic Ac ( S) 1 tab DAILY PO Last administered on 09/03/16 10:38; Admin Dose 1 TAB; Start 08/29/16 at 14:30 Lactobacillus Acidophilus/ Rhamnosus (Culturelle) 1 cap BID PO Last administered on 09/03/16 10:38; Admin Dose 1 CAP; Start 08/29/16 at 14:30 Morphine Sulfate (Ms Contin (Er)) 30 mg BID PO Last administered on 09/03/16 10:39; Admin Dose 30 MG; Start 08/29/16 at 21:00 Morphine Sulfate (morphine) 3 mg Q3H PRN IV BREAKTHROUGH PAIN Last administered on 09/03/16 09:52; Admin Dose 3 MG; Start 08/29/16 at 18:00 Fluticasone Propionate (Flonase 0.05% Nasal) 1 spray DAILY NASAL Last administered on 09/03/16 10:40; Admin Dose 1 SPRAY; Start 08/30/16 at 13:30 Methylprednisolone Sodium Succinate (Solu-Medrol) 40 mg BID IV Last administered on 09/03/16 09:40; Admin Dose 40 MG; Start 08/31/16 at 21:00 Furosemide (Lasix) 40 mg DAILY@06 IV Last administered on 09/03/16 10:39; Admin Dose 40 MG; Start 09/01/16 at 06:00 Mupirocin (Bactroban) 1 applic BID TOP Last administered on 09/03/16 10:40; Admin Dose 1 APPLIC; Start 08/31/16 at 12:30 Tolterodine Tartrate 2 mg 2 mg QHS PO Last administered on 09/02/16 21:49; Admin Dose 2 MG; Start 08/31/16 at 21:00 Vancomycin HCl/ Sodium Chloride (Vancocin/NS) 150 ml @ 75 mls/hr Q12H IVPB Last administered on 09/03/16 01:20; Admin Dose 75 MLS/HR; Start 09/01/16 at 12 :00 IV Flush (NS 10 ml) 10 ml PRN PRN IV FLUSH LINE; Start 09/01/16 at 19:30 Triamcinolone Acetonide (Kenalog 0.025% Lotion) APPLY TO palms of hand BID TOP Last administered on 09/03/16 10:41; Admin Dose 1 APPLIC; Start 09/02/16 at 14: 30 Lactulose (Enulose) 20 gm Q8 PO Last administered on 09/02/16 21:49; Admin Dose 20 GM; Start 09/02/16 at 17:30 Procedures Procedures HIV neg, SHARONA neg, C3 slightly low OLLIE YUEN MD Sep 03, 2016 12:53
[2016-09-03] MEDS ORDERED: PROPOFOL 40 ML ONE (12:57)
--- NOTE | 2016-09-03 13:39 | CONS ---
Date/Time of Note Date/Time of Note DATE: 09/03/16 TIME: 13:39 Assessment/Plan Assessment/Plan Chief Complaint/Hosp Course SUBJECTIVE: No acute changes. The patient is alert, looks comfortable. No fevers. MICROBIOLOGY: Cultures remain negative. ANTIMICROBIALS: Vancomycin, Aztreonam==> day #6 ALLERGIES: 1. PENICILLIN. 2. SULFA. 3. CEFACLOR. PHYSICAL EXAMINATION: GENERAL: This is a cachectic, well-developed, middle-aged woman, who is alert, in no distress. HEENT: Head atraumatic, normocephalic. Sclerae anicteric. Buccal mucosa pink. NECK: Supple. CHEST: Chest rise is symmetrical. Breath sounds clear. HEART: S1, S2. ABDOMEN: Soft. Bowel tones present. EXTREMITIES: With bilateral edema, erythema, left lower extremity more than right, with multiple lesions and peeling skin peeling, mostly on the soles and palms. ASSESSMENT: 1. B lower extremity cellulitis, left more than right, with peeling of the skin on palms and soles==> now with skin completed peeled of her palms with erythema 2. History of ETOH abuse. 3. History of recurrent sepsis, urinary tract infection, pneumonia. 4. Cachexia and chronic pain syndrome. 5. Alcoholic liver cirrhosis. 6. History of gastric bypass surgery in the past. 7. Elevated CA 19-9 and CEA. 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 PLAN: Clinically stable. Continue the present care. Continue on the current antibiotics. Apply moisturizer to palms DW staff Problems: Consultation Date/Type/Reason Admit Date/Time Aug 28, 2016 at 22:59 Type of Consultation: ID Exam/Review of Systems Vital Signs Vitals Vital Signs Date Time Temp Pulse Resp B/P Pulse Ox O2 Delivery O2 Flow Rate FiO2 09/03/16 13:09 Non Rebreather 15 09/03/16 12:57 98.1 101 24 138/94 94 Intake and Output 09/02/16 09/02/16 09/03/16 15:00 23:00 07:00 Intake Total 250 ml 1900 ml 1030 ml Output Total 2100 ml 900 ml Balance 250 ml -200 ml 130 ml Results Result Diagram: 6/12/17 0615 6/12/17 0615 Results 24 hrs Laboratory Tests Test 09/02/16 14:25 09/02/16 23:10 09/03/16 06:15 Ammonia 34 H HIV (1&2) Antibody NEGATIVE Vancomycin Level Trough 11.1 White Blood Count 7.6 # Red Blood Count 2.75 L Hemoglobin 8.5 L Hematocrit 26.7 L Mean Corpuscular Volume 97.1 Mean Corpuscular Hemoglobin 30.9 Mean Corpuscular Hemoglobin Concent 31.8 L Red Cell Distribution Width 17.9 H Platelet Count 268 Mean Platelet Volume 10.0 Neutrophils % 80.8 H Lymphocytes % 14.9 L Monocytes % 3.8 Eosinophils % 0.0 Basophils % 0.0 Nucleated Red Blood Cells % 0.0 Neutrophils # 6.2 Lymphocytes # 1.1 Monocytes # 0.3 Eosinophils # 0.0 Basophils # 0.0 Nucleated Red Blood Cells # 0.0 Sodium Level 144 Potassium Level 3.6 Chloride Level 105 Carbon Dioxide Level 30 Anion Gap 13 Blood Urea Nitrogen 14 Creatinine 0.61 Glucose Level 94 Calcium Level 8.5 Medications Medications Current Medications Famotidine (Pepcid) 20 mg DAILY PO Last administered on 09/03/16 10:38; Admin Dose 20 MG; Start 08/29/16 at 09:00 Thiamine HCl (Vitamin B1) 100 mg DAILY PO Last administered on 09/03/16 10:38 ; Admin Dose 100 MG; Start 08/29/16 at 09:00 Gabapentin (Neurontin) 300 mg TID PO Last administered on 09/03/16 10:38; Admin Dose 300 MG; Start 08/29/16 at 09:00 Levothyroxine Sodium (Synthroid) 150 mcg DAILY@06 PO Last administered on 06:37; Admin Dose 150 MCG; Start 08/29/16 at 06:00 Folic Acid (Folic Acid) 1 mg DAILY PO Last administered on 09/03/16 10:39; Admin Dose 1 MG; Start 08/29/16 at 09:00 Montelukast Sodium (Singulair) 10 mg HS PO Last administered on 09/02/16 20:31 ; Admin Dose 10 MG; Start 08/29/16 at 21:00 Multivitamins/ Minerals (Theragran-M) 1 tab DAILY PO Last administered on 10:38; Admin Dose 1 TAB; Start 08/29/16 at 09:00 Ondansetron HCl (Zofran Inj) 4 mg Q6H PRN IV NAUSEA AND/OR VOMITING; Start 08/29 at 00:30 Heparin Sodium (Porcine) (Heparin (5000 Units/0.5 ml)) 5,000 unit BID SC Last administered on 09/02/16 09:28; Admin Dose 5,000 UNIT; Start 08/29/16 at 09:00 Trazodone HCl (Desyrel) 50 mg HS PO Last administered on 09/03/16 00:21; Admin Dose 50 MG; Start 08/29/16 at 21:00 Venlafaxine HCl (Effexor) 150 mg DAILY PO Last administered on 09/03/16 10:39 ; Admin Dose 150 MG; Start 08/29/16 at 09:00 Venlafaxine HCl 75 mg 75 mg HS PO Last administered on 09/02/16 20:30; Admin Dose 75 MG; Start 08/29/16 at 21:00 Aztreonam/Sodium Chloride (Azactam/NS) 100 ml @ 100 mls/hr Q12 IVPB Last administered on 09/03/16 09:44; Admin Dose 100 MLS/HR; Start 08/29/16 at 11:30 Prenat Multivit/ [employer]/Iron/Folic Ac ( S) 1 tab DAILY PO Last administered on 09/03/16 10:38; Admin Dose 1 TAB; Start 08/29/16 at 14:30 Lactobacillus Acidophilus/ Rhamnosus (Culturelle) 1 cap BID PO Last administered on 09/03/16 10:38; Admin Dose 1 CAP; Start 08/29/16 at 14:30 Morphine Sulfate (Ms Contin (Er)) 30 mg BID PO Last administered on 09/03/16 10:39; Admin Dose 30 MG; Start 08/29/16 at 21:00 Morphine Sulfate (morphine) 3 mg Q3H PRN IV BREAKTHROUGH PAIN Last administered on 09/03/16 13:32; Admin Dose 3 MG; Start 08/29/16 at 18:00 Fluticasone Propionate (Flonase 0.05% Nasal) 1 spray DAILY NASAL Last administered on 09/03/16 10:40; Admin Dose 1 SPRAY; Start 08/30/16 at 13:30 Methylprednisolone Sodium Succinate (Solu-Medrol) 40 mg BID IV Last administered on 09/03/16 09:40; Admin Dose 40 MG; Start 08/31/16 at 21:00 Furosemide (Lasix) 40 mg DAILY@06 IV Last administered on 09/03/16 10:39; Admin Dose 40 MG; Start 09/01/16 at 06:00 Mupirocin (Bactroban) 1 applic BID TOP Last administered on 09/03/16 10:40; Admin Dose 1 APPLIC; Start 08/31/16 at 12:30 Tolterodine Tartrate 2 mg 2 mg QHS PO Last administered on 09/02/16 21:49; Admin Dose 2 MG; Start 08/31/16 at 21:00 Vancomycin HCl/ Sodium Chloride (Vancocin/NS) 150 ml @ 75 mls/hr Q12H IVPB Last administered on 09/03/16 01:20; Admin Dose 75 MLS/HR; Start 09/01/16 at 12 :00 IV Flush (NS 10 ml) 10 ml PRN PRN IV FLUSH LINE; Start 09/01/16 at 19:30 Triamcinolone Acetonide (Kenalog 0.025% Lotion) APPLY TO palms of hand BID TOP Last administered on 09/03/16 10:41; Admin Dose 1 APPLIC; Start 09/02/16 at 14: 30 Lactulose (Enulose) 20 gm Q8 PO Last administered on 09/02/16 21:49; Admin Dose 20 GM; Start 09/02/16 at 17:30 Metoclopramide HCl (Reglan) 10 mg Q6 IV ; Start 09/03/16 at 18:00 SAMEER ESQUEDA NP Sep 03, 2016 13:39
[2016-09-03] MEDS ORDERED: SOD CHLORIDE 0.9% 100 ML ONE (17:39)
[2016-09-03] MEDS ORDERED: IOHEXOL 300MG/ML 150 ML BTL ONE (17:39)
--- NOTE | 2016-09-03 17:40 | CONS ---
DATE OF ADMISSION: 08/28/2016 DATE OF CONSULTATION: 09/03/2016 MEDICAL ONCOLOGY CONSULTATION REQUESTING PHYSICIAN: Dr. Montanez REASON FOR CONSULTATION: Possible malignancy. Dear Dr. Montanez, Thank you very much for asking me to see this very interesting and pleasant patient in oncologic con sultation. As you may recall, I did see this patient on her last admission to [facility] on 07/18/2016. At that time, the patient was admitted because of elevated tumor markers. T cindye markers had originally been drawn in early May of 2016 at the senior [facility] where the patient is a resident. At that time, the patient had a CA-125 of 32.4, CA19-9 was 30.8, and CEA was 31.7. The patient, upon admission to the hospital, had a CEA of 34, CA19-1 of 199, and a CA-12 5 of 119. It is not clear why the patient ever had the original marker studies drawn. The workup did not reve al any evidence of malignancy. The patient is now admitted to [facility] on 08/29/2016. Apparently, the patient at that time had a diffuse rash and bilateral edema of the arms and legs. Since that time, the patient has had resolution of edema but has had desquamation of the plantar and palmar aspects of feet and hands. On admission to the hospital, the patient had a white count of 6600, hemoglobin 9.4, hematocrit 29.2 , MCV 93.3, MCH 30, MCHC 32.2, RDW 18.2, and platelet count of 325,000. Today, the patient's white count is 6700, hemoglobin 8.5, hematocrit 26.7, and platelet count 268,000. On admission, the patie nt's comprehensive metabolic panel was normal except for calcium of 7.7 and albumin of 2.5. Protein was 5. Alkaline phosphatase 159, AST 64, ALT 45. Total bilirubin 1 and indirect 0.1. Today, the patient's sodium is 144, potassium 3.6, creatinine 0.61, BUN 14. Ammonia on 09/02/2016 was 34. Repeat marker studies have included a CEA of 34.8, CA19-9 of 141, and CA-125 of 68.8. The patient has had a CT scan of the abdomen and pelvis which shows evidence of previous cholecystec bernard. There is also history of a previous gastric bypass surgery with mild small and large bowel di stention suggestive of ileus. There is diffuse subcutaneous edema. There were no other abnormaliti es noted. There was no evidence of cirrhosis or any pancreatic abnormalities noted. The patient's past history is included in my previous consultation of 07/23/2016. The patient has h ad multiple medical problems in the past. She has a history of chronic pain syndrome and has been o n chronic opioids because of this. The patient has had recurrent lower extremity edema in the past. PAST MEDICAL PROBLEMS: Include iatrogenic hypothyroidism. She had a thyroidectomy done many years ago for what appears to have been a goiter. The patient's other medical problems include a history of IBS with intermittent diarrhea and constipation. She does have a history of heavy alcohol use in the past and states she has a history of alcoholic liver disease. The patient has had a cholecystectomy and also gastric bypass surgery done laparoscopically in the p ast. The patient has lost over 180 pounds. She has not had symptoms of "dumping." The patient has had ablation for paroxysmal supraventricular tachycardia. MEDICATIONS: At the time of admission included 1. Neurontin 100 mg twice a day. 2. OxyContin 100 mg twice a day. 3. Venlafaxine 150 mg daily. 4. Singulair 10 mg at bedtime. 5. Levothyroxine 175 mcg daily. 6. Vitamin C 500 mg daily. 7. Thiamine 100 mg daily. ALLERGIES: THE PATIENT IS STATED TO BE ALLERGIC TO 1. PENICILLIN. 2. SULFA. 3. CEFACLOR 4. PROCHLORPERAZINE. SOCIAL HISTORY: The patient is unmarried. As noted, she has been a previously heavy alcohol user a nd smoker. She is rather vague about all these findings. FAMILY HISTORY: Includes a history of diabetes. PHYSICAL EXAMINATION: GENERAL: At this time reveals a well-developed but chronically ill-appearing female who is in no ac yared distress. VITAL SIGNS: Temperature 98.1, pulse 80 per minute and regular, respirations 15, blood pressure 147 /96, and pulse oximetry is 99% on room air. SKIN: Pale. No ecchymoses or petechiae. There is marked erythema and desquamation of the palmar a spects of the hands and plantar aspects of the feet. HEENT: Normocephalic. No evidence of trauma. The pupils are equal, round, and reactive to light a nd accommodation. Sclerae are nonicteric. Oral mucosa is pale but without lesions, although there seems to be some mild erythema surrounding the lips. There are no mucosal ulcerations. Tongue is w ell papillated. No gingival hyperplasia. NECK: Supple, no jugular venous distention or thyroid enlargement. No carotid bruits. CHEST: Clear to auscultation and percussion. No rhonchi, wheezes, rales, or rubs. BREASTS: No masses, skin retraction, or nipple inversion. NODES: No palpable lymphadenopathy in lymph node bearing area. HEART: Regular sinus rhythm, no S3, S4, or murmurs. ABDOMEN: Mildly distended but soft. There are no distinct masses or ascites. Bowel sounds are act marlon. EXTREMITIES: Good range of motion. No clubbing or cyanosis. There is trace edema of bilateral ank les. No palpable cords or Homans sign. As noted, there is diffuse erythema and desquamation of the palms of the hands and soles of the feet. No vesicles or bolus formations seen at this time. DISCUSSION: At this time, it is unclear what the cause for the patient's initial rash and desquamat ion of the palms of the hands and soles and feet. The patient states that this, she feels, is due t o edema, and definitely, some skin changes can occur from edema, but it is rarely on the palms and s oles. The patient has not been on any new medications or had any other evidence of infection. She has not been on any chemotherapeutic agents which would cause a "hand-foot syndrome." The patient has had excessive weight loss since her gastric bypass and does look poorly nourished. I doubt that these findings are related to a vitamin deficiency as she apparently has been on thiami n. We will, however, check thiamin levels, riboflavin levels, and Pyridoxine levels. Although unlikely, I would also consider the possibility of porphyria cutanea tarda as a cause for t he hand and foot changes. We will request serum for total porphyrins as well as spot urine for porp hyrin. Other possibilities for this type of change in hands and feet can include dyshidrotic eczema. The patient was initially seen because of the elevated marker levels. It is still unclear why these were ever drawn to begin with. Fortunately, there are no signs or symptoms to suggest a malignancy . The patient has had a CT scan of the abdomen and pelvis on this admission. On last admission, magali mcrae did have an MRI of the brain as well as a pelvic ultrasound. These were normal. A chest x-ray do ne on last admission was normal as well. A previous CT scan of the chest done on 06/05/2016 demonstrated "numerous bilateral tree-in-bud like opacities in the lung which were felt to most likely represent bronchiolitis. There were no parenc hymal masses or lymphadenopathy. We will repeat a CT scan of the chest with and without contrast. We will also obtain a bone scan. I do not see any organ to biopsy at this time. I am not clear that a random bone marrow aspiration and biopsy is necessary. Once again, thank you very much for the opportunity of participating in the medical care of this james y interesting and pleasant patient. I will be happy to follow this patient with you and assist in h er oncologic evaluation and followup as necessary. Dictated By: JACKSON BENITEZ MD SR/NTS Conf#: [id number] DID#: [id number]
[2016-09-03] MEDS: METOCLOPRAMIDE 10 MG INJ IV SCH (18:07)
--- NOTE | 2016-09-03 19:58 | RADRPT ---
PROCEDURE: CT CHEST WITH AND WITHOUT CONTRAST CLINICAL INDICATION: Possible lung cancer, tobacco use TECHNIQUE: Volumetrically acquired images of the thorax obtained with and without intravenous cont rast were reformatted in the axial, coronal, and sagittal planes. A total of 90 cc of Omnipaque-300 was used intravenously without complication. CTDI = 0.4 mGy; DLP = 140, 172 mGy-cm. One or more of t he following dose reduction techniques were used: Automated exposure control. Adjustment of the mA and/or kV according to patient size. Use of iterative reconstruction technique . COMPARISON: CT abdomen from 09/01/2016 and chest x-ray from 09/01/2016. FINDINGS: FINDINGS: LOWER NECK AND CHEST WALL: Surgical clips are seen in the thyroid bed. AIRWAYS: The trachea and large airways are normal. Mild bronchial wall thickening is seen. LUNGS: Mild centrilobular emphysema is seen as well as peribronchiolar ground-glass seen in the midd le lobe and left lower lobe. No definite suspicious nodules, masses, or consolidation. PLEURA: Unremarkable. No pleural thickening or effusions. MEDIASTINUM: No mediastinal mass. LYMPH NODES: No significant axillary, hilar, or mediastinal lymphadenopathy by CT size criteria. CARDIAC: The heart size is normal. No pericardial effusion. VASCULAR: The aorta and main pulmonary artery are normal in caliber. There is a PICC line from the left with the tip terminating in the deep right atrium. OSSEOUS: No suspicious osseous lesions. Limited evaluation of the upper abdomen demonstrates a prior cholecystectomy. There is dilatation of the esophagus with a fluid level. There is postsurgical changes seen in the fascial esophageal jillian ction. Minimal wall thickening of the distal esophagus is present. IMPRESSION: 1. Mild centrilobular emphysema and smoking related airways disease/chronic bronchitis. Areas of pe ribronchial ground-glass is seen in the middle lobe and left lower lobe which may represent peribron chiolar inflammation from aspiration. No definite suspicious nodules or masses. 2. Aortic and coronary atherosclerosis. 3. Status post gastric bypass surgery. There is thickening of the distal esophagus/gastroesophagea l anastomosis. Findings may suggest inflammation, or other process cannot be fully excluded. Consi jose correlation with endoscopy if clinically indicated. There is a patulous esophagus with a fluid level. 4. Status post cholecystectomy. RPTAT:PP .Raul Marcano MD, MD Date Time Electronically viewed and signed by .Raul Marcano MD, on 09/03/2016 19:58 .V/
--- NOTE | 2016-09-03 21:31 | GILP ---
DATE OF PROCEDURE: PROCEDURE PERFORMED: EGD with biopsy. INDICATION: A 46-year-old female undergoing this procedure for dysphagia. She had a surgery for hi atal hernia and also gastric bypass surgery. Besides, patient has palmar erythema called tylosis. The purpose of this procedure is to rule out esophageal malignancy or stomal ulcer. INFORMED CONSENT: The risk of the procedure, related and unrelated complications, anesthetic risks, alternatives discussed. Informed consent was obtained. DESCRIPTION OF PROCEDURE: The patient was brought to the GI lab, sedated by the anesthesiologist. After optimal sedation, scope was passed with much ease into esophagus. Multiple whitish plaques se en. Each one was about 2 to 3 mm in diameter in the proximal and mid portion of the esophagus. Sco pe was advanced further down and from the GE junction at the anastomotic site, the entire stomach wa s filled with solid food. Managed to push the food to the side and enter through the anastomosis in to both the loops and both the loops appeared normal. Scope was withdrawn. The whitish plaques wer e biopsied, making sure that no veins were involved in taking biopsy. Some of the whitish plaques w ere on the veins, which were running in the center varicose vein, grade I. Scope was removed with g ood patient tolerance. IMPRESSION: 1. Severe gastroparesis. 2. Food in the stomach obstructing the view. 3. Patent afferent and efferent loops. 4. Whitish plaque in the esophagus, diminutive. Two of them were biopsied. No bleeding seen. PLAN: Start the patient on Reglan. Keep her on a liquid diet. The patient's gastroparesis might b e related to the vagotomy. Also will review histopathology and patient definitely would need EGD pe riodically to rule out or to look for early esophageal cancer. Dictated By: AMBER NELSON/PAUL Conf#: [id number] DID#: [id number] CC: AMBER FERRO MD; TOSIN ENCARNACION;*EndCC*
[2016-09-03] MEDS: TOLTERODINE (SR) 2 MG CAP PO SCH (21:32)
[2016-09-03] MEDS: MONTELUKAST 10 MG TAB PO SCH (21:33)
[2016-09-04] MEDS ORDERED: ALBUTEROL 18 GM INHALER INH PRN
[2016-09-04] MEDS ORDERED: ALBUTEROL/IPRATROPIUM (NEB) 3 ML AMP HHN PRN
[2016-09-04] MEDS: morphine 4 MG/ML VIAL IV PRN ×6 (00:28→23:07)
[2016-09-04] MEDS: traZODone 50 MG TAB PO SCH ×2 (00:28→23:08)
[2016-09-04] MEDS: VANCOMYCIN 750 MG in SOD CHLORIDE 0.9% 150 ML IVPB SCH ×2 (00:28→12:39)
[2016-09-04] MEDS: METOCLOPRAMIDE 10 MG INJ IV SCH ×5 (00:28→23:07)
[2016-09-04] MEDS: LEVOTHYROXINE 150 MCG TAB PO SCH (06:09)
[2016-09-04] MEDS: LACTULOSE 30ML CUP PO SCH ×3 (06:09→23:07)
[2016-09-04] MEDS: FUROSEMIDE 40 MG INJ IV SCH (06:16)
[2016-09-04 07:41] VITALS: BP 118/74; RESP 20
[2016-09-04] MEDS: HEPARIN 5,000 UNIT/0.5 ML VIAL SC SCH ×2 (09:48→21:00)
[2016-09-04] MEDS: METHYLPREDNISOLONE 40 MG INJ IV SCH ×2 (09:50→20:58)
[2016-09-04] MEDS: FLUTICASONE 0.05% 16 GM NAS SPRAY NASAL SCH (09:50)
[2016-09-04] MEDS: THIAMINE 100 MG TAB PO SCH (09:51)
[2016-09-04] MEDS: GABAPENTIN 300 MG CAP PO SCH ×3 (09:51→20:59)
[2016-09-04] MEDS: MUPIROCIN 2% 22 GM OINT TOP SCH ×2 (09:51→21:00)
[2016-09-04] MEDS: MULTIVITAMINS/MINERALS TAB PO SCH (09:51)
[2016-09-04] MEDS: FAMOTIDINE 20 MG TAB PO SCH (09:51)
[2016-09-04] MEDS: VENLAFAXINE 75 MG TABLET PO SCH ×2 (09:51→20:59)
[2016-09-04] MEDS: LACTOBACILLUS RHAMNOSUS CAP PO SCH ×2 (09:51→20:59)
[2016-09-04] MEDS: FOLIC ACID 1 MG TAB PO SCH (09:51)
[2016-09-04] MEDS: MULTIVIT/MIN/FOLATE/IRON/PREN TAB PO SCH (09:51)
[2016-09-04] MEDS: morphine (ER) 30 MG TAB PO SCH ×2 (09:52→20:58)
[2016-09-04] MEDS: AZTREONAM 2 GM in SOD CHLORIDE 0.9% 100 ML IVPB SCH (09:52)
[2016-09-04] MEDS: TRIAMCINOLONE ACET 0.025% 60 ML LOT TOP SCH ×2 (09:53→21:00)
--- NOTE | 2016-09-04 13:11 | CONS ---
Date/Time of Note Date/Time of Note DATE: 09/04/16 TIME: 13:09 Assessment/Plan Assessment/Plan Chief Complaint/Hosp Course SUBJECTIVE: No acute changes. The patient is alert, looks comfortable. No fevers. MICROBIOLOGY: Cultures remain negative. ANTIMICROBIALS: Vancomycin, Aztreonam==> day #7 ALLERGIES: 1. PENICILLIN. 2. SULFA. 3. CEFACLOR. PHYSICAL EXAMINATION: GENERAL: This is a cachectic, well-developed, middle-aged woman, who is alert, in no distress. HEENT: Head atraumatic, normocephalic. Sclerae anicteric. Buccal mucosa pink. NECK: Supple. CHEST: Chest rise is symmetrical. Breath sounds clear. HEART: S1, S2. ABDOMEN: Soft. Bowel tones present. EXTREMITIES: Resolved BLE edema and erythema ASSESSMENT: 1. B lower extremity cellulitis==> resolved 2. History of ETOH abuse. 3. History of recurrent sepsis, urinary tract infection, pneumonia. 4. Cachexia and chronic pain syndrome. 5. Alcoholic liver cirrhosis. 6. History of gastric bypass surgery in the past. 7. Elevated CA 19-9 and CEA. 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 Severe gastroparesis===> s/p EGD PLAN: Clinically stable. Will dc abx and monitor. Continue the present care. Apply moisturizer to palms, f/u GI rec-s [facility] staff Problems: Consultation Date/Type/Reason Admit Date/Time Aug 28, 2016 at 22:59 Type of Consultation: ID Exam/Review of Systems Vital Signs Vitals Vital Signs Date Time Temp Pulse Resp B/P Pulse Ox O2 Delivery O2 Flow Rate FiO2 09/04/16 07:41 98.1 109 20 118/74 96 09/03/16 13:57 Room Air 09/03/16 13:27 2.0 Intake and Output 09/03/16 09/03/16 09/04/16 15:00 23:00 07:00 Intake Total 300 ml 1410 ml 750 ml Output Total 3400 ml 400 ml Balance 300 ml -1990 ml 350 ml Results Result Diagram: 09/03/16 0615 09/03/16 0615 Medications Medications Current Medications Famotidine (Pepcid) 20 mg DAILY PO Last administered on 09/04/16t 09:51; Admin Dose 20 MG; Start 08/29/16 at 09:00 Thiamine HCl (Vitamin B1) 100 mg DAILY PO Last administered on 09/04/16 09:51 ; Admin Dose 100 MG; Start 08/29/16 at 09:00 Gabapentin (Neurontin) 300 mg TID PO Last administered on 09/04/16 12:39; Admin Dose 300 MG; Start 08/29/16 at 09:00 Levothyroxine Sodium (Synthroid) 150 mcg DAILY@06 PO Last administered on 06:09; Admin Dose 150 MCG; Start 08/29/16 at 06:00 Folic Acid (Folic Acid) 1 mg DAILY PO Last administered on 09/04/16 09:51; Admin Dose 1 MG; Start 08/29/16 at 09:00 Montelukast Sodium (Singulair) 10 mg HS PO Last administered on 09/03/16 21:33 ; Admin Dose 10 MG; Start 08/29/16 at 21:00 Multivitamins/ Minerals (Theragran-M) 1 tab DAILY PO Last administered on 09:51; Admin Dose 1 TAB; Start 08/29/16 at 09:00 Ondansetron HCl (Zofran Inj) 4 mg Q6H PRN IV NAUSEA AND/OR VOMITING; Start 08/29 at 00:30 Heparin Sodium (Porcine) (Heparin (5000 Units/0.5 ml)) 5,000 unit BID SC Last administered on 09/04/16 09:48; Admin Dose 5,000 UNIT; Start 08/29/16 at 09:00 Trazodone HCl (Desyrel) 50 mg HS PO Last administered on 09/04/16 00:28; Admin Dose 50 MG; Start 08/29/16 at 21:00 Venlafaxine HCl (Effexor) 150 mg DAILY PO Last administered on 09/04/16 09:51 ; Admin Dose 150 MG; Start 08/29/16 at 09:00 Venlafaxine HCl 75 mg 75 mg HS PO Last administered on 09/03/16 21:35; Admin Dose 75 MG; Start 08/29/16 at 21:00 Aztreonam/Sodium Chloride (Azactam/NS) 100 ml @ 100 mls/hr Q12 IVPB Last administered on 6/13/17at 09:52; Admin Dose 100 MLS/HR; Start 08/29/16 at 11:30 Prenat Multivit/ [place]/Iron/Folic Ac ( S) 1 tab DAILY PO Last administered on 09/04/16 09:51; Admin Dose 1 TAB; Start 08/29/16 at 14:30 Lactobacillus Acidophilus/ Rhamnosus (Culturelle) 1 cap BID PO Last administered on 09/04/16 09:51; Admin Dose 1 CAP; Start 08/29/16 at 14:30 Morphine Sulfate (Ms Contin (Er)) 30 mg BID PO Last administered on 09/04/16 09:52; Admin Dose 30 MG; Start 08/29/16 at 21:00 Morphine Sulfate (morphine) 3 mg Q3H PRN IV BREAKTHROUGH PAIN Last administered on 09/04/16 11:11; Admin Dose 3 MG; Start 08/29/16 at 18:00 Fluticasone Propionate (Flonase 0.05% Nasal) 1 spray DAILY NASAL Last administered on 09/04/16 09:50; Admin Dose 1 SPRAY; Start 08/30/16 at 13:30 Methylprednisolone Sodium Succinate (Solu-Medrol) 40 mg BID IV Last administered on 09/04/16 09:50; Admin Dose 40 MG; Start 08/31/16 at 21:00 Furosemide (Lasix) 40 mg DAILY@06 IV Last administered on 09/04/16 06:16; Admin Dose 40 MG; Start 09/01/16 at 06:00 Mupirocin (Bactroban) 1 applic BID TOP Last administered on 09/04/16 09:51; Admin Dose 1 APPLIC; Start 08/31/16 at 12:30 Tolterodine Tartrate 2 mg 2 mg QHS PO Last administered on 09/03/16 21:32; Admin Dose 2 MG; Start 08/31/16 at 21:00 Vancomycin HCl/ Sodium Chloride (Vancocin/NS) 150 ml @ 75 mls/hr Q12H IVPB Last administered on 09/04/16 12:39; Admin Dose 75 MLS/HR; Start 09/01/16 at 12 :00 IV Flush (NS 10 ml) 10 ml PRN PRN IV FLUSH LINE; Start 09/01/16 at 19:30 Triamcinolone Acetonide (Kenalog 0.025% Lotion) APPLY TO palms of hand BID TOP Last administered on 09/04/16 09:53; Admin Dose 1 APPLIC; Start 09/02/16 at 14: 30 Lactulose (Enulose) 20 gm Q8 PO Last administered on 09/04/16 06:09; Admin Dose 20 GM; Start 09/02/16 at 17:30 Metoclopramide HCl (Reglan) 10 mg Q6 IV Last administered on 09/04/16 12:39; Admin Dose 10 MG; Start 09/03/16 at 18:00 SAMEER ESQUEDA NP Sep 04, 2016 13:11
--- NOTE | 2016-09-04 13:42 | CONS ---
Date/Time of Note Date/Time of Note DATE: 09/04/16 TIME: 13:36 Assessment/Plan Assessment/Plan Additional Assessment/Plan Cervical spine osteoarthritis osteopenia Left lower extremity cellulitis... Resolved Left lower extremity edema.... Resolved Chronic pain syndrome Opioid dependency Anxiety syndrome Patient is still bargaining with me for higher doses of opioids I have explained to her the rationale that she is improving and there is no indication to increase her opioids. In addition I explained her that intravenous opioids are much stronger than oral that she was taking prior to admission. We will continue to support but not increase opioids, encouraged distraction therapy alternative forms of pain management other than opioid. Consultation Date/Type/Reason Admit Date/Time Aug 28, 2016 at 22:59 Type of Consultation: ID Reason for Consultation She denies nausea vomiting constipation itching mental cloudiness or fatigue, she continues to bargain for higher doses of pain control. When I tell her this is not indicated she becomes anxious and agitated. She asked for frequent and early renewal I believe she is his pain medication response to situational stressors or anxiety and she has insists on certain pain control medications. On presentation she appeared to be unkempt dehydrated malnourished patient has no overall severe side effect associate with her current pain medication physical functioning is improved mood is has continued to be the same which is passive sleep patterns and overall functioning is unchanged Exam/Review of Systems Vital Signs Vitals Vital Signs Date Time Temp Pulse Resp B/P Pulse Ox O2 Delivery O2 Flow Rate FiO2 09/04/16 07:41 98.1 109 20 118/74 96 09/03/16 13:57 Room Air 09/03/16 13:27 2.0 Intake and Output 09/03/16 09/03/16 09/04/16 15:00 23:00 07:00 Intake Total 300 ml 1410 ml 750 ml Output Total 3400 ml 400 ml Balance 300 ml -1990 ml 350 ml Exam Extremities: No calf tenderness, No clubbing, No cyanosis, No edema, No normal pulses, No other, No palpable cord, No pitting pedal edema, No tenderness Neurological: No NURSING AIDE II-XII intact, No DTR's symmetric, No confused, No focal weakness, No lethargic, No nl mental status, No nl speech, No nl strength, No numbness, No other, No reflexes, No unresponsive Results Result Diagram: 09/03/1615 09/03/1615 Medications Medications Current Medications Famotidine (Pepcid) 20 mg DAILY PO Last administered on 09/04/16 09:51; Admin Dose 20 MG; Start 08/29/16 at 09:00 Thiamine HCl (Vitamin B1) 100 mg DAILY PO Last administered on 09/04/16 09:51 ; Admin Dose 100 MG; Start 08/29/16 at 09:00 Gabapentin (Neurontin) 300 mg TID PO Last administered on 09/04/16 12:39; Admin Dose 300 MG; Start 08/29/16 at 09:00 Levothyroxine Sodium (Synthroid) 150 mcg DAILY@06 PO Last administered on 06:09; Admin Dose 150 MCG; Start 08/29/16 at 06:00 Folic Acid (Folic Acid) 1 mg DAILY PO Last administered on 09/04/16 09:51; Admin Dose 1 MG; Start 08/29/16 at 09:00 Montelukast Sodium (Singulair) 10 mg HS PO Last administered on 09/03/16 21:33 ; Admin Dose 10 MG; Start 08/29/16 at 21:00 Multivitamins/ Minerals (Theragran-M) 1 tab DAILY PO Last administered on 09:51; Admin Dose 1 TAB; Start 08/29/16 at 09:00 Ondansetron HCl (Zofran Inj) 4 mg Q6H PRN IV NAUSEA AND/OR VOMITING; Start 08/29 at 00:30 Heparin Sodium (Porcine) (Heparin (5000 Units/0.5 ml)) 5,000 unit BID SC Last administered on 09/04/16 09:48; Admin Dose 5,000 UNIT; Start 08/29/16 at 09:00 Trazodone HCl (Desyrel) 50 mg HS PO Last administered on 09/04/16 00:28; Admin Dose 50 MG; Start 08/29/16 at 21:00 Venlafaxine HCl (Effexor) 150 mg DAILY PO Last administered on 09/04/16 09:51 ; Admin Dose 150 MG; Start 08/29/16 at 09:00 Venlafaxine HCl (Effexor) 75 mg HS PO Last administered on 09/03/16 21:35; Admin Dose 75 MG; Start 08/29/16 at 21:00 Prenat Multivit/ [place]/Iron/Folic Ac ( S) 1 tab DAILY PO Last administered on 09/04/16 09:51; Admin Dose 1 TAB; Start 08/29/16 at 14:30 Lactobacillus Acidophilus/ Rhamnosus (Culturelle) 1 cap BID PO Last administered on 09/04/16 09:51; Admin Dose 1 CAP; Start 08/29/16 at 14:30 Morphine Sulfate (Ms Contin (Er)) 30 mg BID PO Last administered on 09/04/16 09:52; Admin Dose 30 MG; Start 08/29/16 at 21:00 Morphine Sulfate (morphine) 3 mg Q3H PRN IV BREAKTHROUGH PAIN Last administered on 09/04/16 11:11; Admin Dose 3 MG; Start 08/29/16 at 18:00 Fluticasone Propionate (Flonase 0.05% Nasal) 1 spray DAILY NASAL Last administered on 09/04/16 09:50; Admin Dose 1 SPRAY; Start 08/30/16 at 13:30 Methylprednisolone Sodium Succinate (Solu-Medrol) 40 mg BID IV Last administered on 09/04/16 09:50; Admin Dose 40 MG; Start 08/31/16 at 21:00 Furosemide (Lasix) 40 mg DAILY@06 IV Last administered on 09/04/16 06:16; Admin Dose 40 MG; Start 09/01/16 at 06:00 Mupirocin (Bactroban) 1 applic BID TOP Last administered on 09/04/16 09:51; Admin Dose 1 APPLIC; Start 08/31/16 at 12:30 Tolterodine Tartrate (Detrol La) 2 mg QHS PO Last administered on 09/03/16 21: 32; Admin Dose 2 MG; Start 08/31/16 at 21:00 IV Flush (NS 10 ml) 10 ml PRN PRN IV FLUSH LINE; Start 09/01/16 at 19:30 Triamcinolone Acetonide (Kenalog 0.025% Lotion) APPLY TO palms of hand BID TOP Last administered on 09/04/16 09:53; Admin Dose 1 APPLIC; Start 09/02/16 at 14: 30 Lactulose (Enulose) 20 gm Q8 PO Last administered on 09/04/16 06:09; Admin Dose 20 GM; Start 09/02/16 at 17:30 Metoclopramide HCl (Reglan) 10 mg Q6 IV Last administered on 09/04/16 12:39; Admin Dose 10 MG; Start 09/03/16 at 18:00 MARIA LUZ MARIE Sep 04, 2016 13:42
--- NOTE | 2016-09-04 14:39 | PN ---
Date/Time of Note Date/Time of Note DATE: 09/04/16 TIME: 14:32 Assessment/Plan VTE Prophylaxis VTE Prophylaxis Intervention: SCD's Lines/Catheters IV Catheter Type (from Nrsg): PICC Line Central line still needed: No Urinary Cath still in place: Yes Reason Cath still needed: other (indicate) (24 hours urine collection) Assessment/Plan Assessment/Plan 46-year-old female with history of chronic pain syndrome, prior alcohol use, pain and opioid dependence, cirrhosis, hypothyroidism, history of gastric bypass surgery and depression, presented with weakness and bilateral hands and lower extremity rash #rash: d/dx includes cellulitis v pemphigus v other -LE cellulitis resolved per ID. abx to be stopped -cont steroids (topical and systemic) for hands #protein calorie malnutrition: etio unclear. possibly 2/2 insufficient food access v consequence of her previous bypass surgery v other -work up ongoing. 24 urine collection ordered by other provider. Of note, UA without protein -check pre albumin #elevated tumor markers: etio and clinical significanc unclear. CT 02/07 without pancreatic/hepatic mass CT chest and EGD yesterdday also unremarkable heme/onc following, appreciated assistance #chronic pain: palliative/pain management on consult, appreciate assistance #depression: cont home meds #hypothyroid: cont synthroid dispo pending discharge arrangements Subjective 24 Hr Interval Summary Free Text/Dictation Pt reports LE swelling MUCH MUCH improved from admission. She is very concerned about her discharge disposition as she is homeless. Exam/Review of Systems Vital Signs Vitals Vital Signs Date Time Temp Pulse Resp B/P Pulse Ox O2 Delivery O2 Flow Rate FiO2 09/04/16 07:41 98.1 109 20 118/74 96 09/03/16 13:57 Room Air 09/03/16 13:27 2.0 Intake and Output 09/03/16 09/03/16 09/04/16 15:00 23:00 07:00 Intake Total 300 ml 1410 ml 750 ml Output Total 3400 ml 400 ml Balance 300 ml -1990 ml 350 ml Exam nad, thin, laying in bed +cachectic with temporal wasting no mrg lungs clear abd soft erythema of palms and soles, evidence of denudation of top layer of skin Results Result Diagram: 09/03/1661409/03/16614 Medications Medications Current Medications Famotidine (Pepcid) 20 mg DAILY PO Last administered on 09/04/16 09:51; Admin Dose 20 MG; Start 08/29/16 at 09:00 Thiamine HCl (Vitamin B1) 100 mg DAILY PO Last administered on 09/04/16 09:51 ; Admin Dose 100 MG; Start 08/29/16 at 09:00 Gabapentin (Neurontin) 300 mg TID PO Last administered on 09/04/16 12:39; Admin Dose 300 MG; Start 08/29/16 at 09:00 Levothyroxine Sodium (Synthroid) 150 mcg DAILY@06 PO Last administered on 06:09; Admin Dose 150 MCG; Start 08/29/16 at 06:00 Folic Acid (Folic Acid) 1 mg DAILY PO Last administered on 09/04/16 09:51; Admin Dose 1 MG; Start 08/29/16 at 09:00 Montelukast Sodium (Singulair) 10 mg HS PO Last administered on 09/03/16 21:33 ; Admin Dose 10 MG; Start 08/29/16 at 21:00 Multivitamins/ Minerals (Theragran-M) 1 tab DAILY PO Last administered on 09:51; Admin Dose 1 TAB; Start 08/29/16 at 09:00 Ondansetron HCl (Zofran Inj) 4 mg Q6H PRN IV NAUSEA AND/OR VOMITING; Start 08/29 at 00:30 Heparin Sodium (Porcine) (Heparin (5000 Units/0.5 ml)) 5,000 unit BID SC Last administered on 09/04/16 09:48; Admin Dose 5,000 UNIT; Start 08/29/16 at 09:00 Trazodone HCl (Desyrel) 50 mg HS PO Last administered on 09/04/16 00:28; Admin Dose 50 MG; Start 08/29/16 at 21:00 Venlafaxine HCl (Effexor) 150 mg DAILY PO Last administered on 09/04/16 09:51 ; Admin Dose 150 MG; Start 08/29/16 at 09:00 Venlafaxine HCl (Effexor) 75 mg HS PO Last administered on 09/03/16 21:35; Admin Dose 75 MG; Start 08/29/16 at 21:00 Prenat Multivit/ [place]/Iron/Folic Ac ( S) 1 tab DAILY PO Last administered on 09/04/16 09:51; Admin Dose 1 TAB; Start 08/29/16 at 14:30 Lactobacillus Acidophilus/ Rhamnosus (Culturelle) 1 cap BID PO Last administered on 09/04/16 09:51; Admin Dose 1 CAP; Start 08/29/16 at 14:30 Morphine Sulfate (Ms Contin (Er)) 30 mg BID PO Last administered on 09/04/16 09:52; Admin Dose 30 MG; Start 08/29/16 at 21:00 Morphine Sulfate (morphine) 3 mg Q3H PRN IV BREAKTHROUGH PAIN Last administered on 09/04/16 11:11; Admin Dose 3 MG; Start 08/29/16 at 18:00 Fluticasone Propionate (Flonase 0.05% Nasal) 1 spray DAILY NASAL Last administered on 09/04/16 09:50; Admin Dose 1 SPRAY; Start 08/30/16 at 13:30 Methylprednisolone Sodium Succinate (Solu-Medrol) 40 mg BID IV Last administered on 09/04/16 09:50; Admin Dose 40 MG; Start 08/31/16 at 21:00 Furosemide (Lasix) 40 mg DAILY@06 IV Last administered on 09/04/16 06:16; Admin Dose 40 MG; Start 09/01/16 at 06:00 Mupirocin (Bactroban) 1 applic BID TOP Last administered on 09/04/16 09:51; Admin Dose 1 APPLIC; Start 08/31/16 at 12:30 Tolterodine Tartrate (Detrol La) 2 mg QHS PO Last administered on 09/03/16 21: 32; Admin Dose 2 MG; Start 08/31/16 at 21:00 IV Flush (NS 10 ml) 10 ml PRN PRN IV FLUSH LINE; Start 09/01/16 at 19:30 Triamcinolone Acetonide (Kenalog 0.025% Lotion) APPLY TO palms of hand BID TOP Last administered on 09/04/16 09:53; Admin Dose 1 APPLIC; Start 09/02/16 at 14: 30 Lactulose (Enulose) 20 gm Q8 PO Last administered on 09/04/16 13:37; Admin Dose 20 GM; Start 09/02/16 at 17:30 Metoclopramide HCl (Reglan) 10 mg Q6 IV Last administered on 09/04/16t 12:39; Admin Dose 10 MG; Start 09/03/16 at 18:00 Procedures Procedures EGD and CT results reviewed and discussed with patient OLLIE YUEN MD Sep 04, 2016 14:39
--- NOTE | 2016-09-04 19:12 | CONS ---
Date/Time of Note Date/Time of Note DATE: 09/04/16 TIME: 19:11 Assessment/Plan Assessment/Plan Additional Assessment/Plan Additional Assessment/Plan IMPRESSION: 1. Bilateral cellulitis of the hands and feet with a bullous finding, much improved on a steroid and antibiotic. 2. Depression. 3. Chronic pain syndrome. 4. Hypothyroidism. 5. Status post gastric bypass surgery. 6. Elevated CA 19-9 and CEA. 7. Severe palmar erythema 8. Hypoalbuminemia Plan Advance her diet Reglan IV Monitor CEA periodically Consultation Date/Type/Reason Admit Date/Time Aug 28, 2016 at 22:59 Type of Consultation: ID 24 HR Interval Summary Free Text/Dictation Patient is hungry, wants solid food Exam/Review of Systems Vital Signs Vitals Vital Signs Date Time Temp Pulse Resp B/P Pulse Ox O2 Delivery O2 Flow Rate FiO2 09/04/16 07:41 98.1 109 20 118/74 96 09/03/16 13:57 Room Air 09/03/16 13:27 2.0 Intake and Output 09/03/16 09/03/16 09/04/16 15:00 23:00 07:00 Intake Total 300 ml 1410 ml 750 ml Output Total 3400 ml 400 ml Balance 300 ml -1990 ml 350 ml Exam Constitutional: alert, oriented, well developed Psych: nl mood/affect, no complaints Head: atraumatic, normocephalic Eyes: EOMI, PERRL, nl conjunctiva, nl lids, nl sclera ENMT: nl external ears & nose, nl lips & teeth, nl nasal mucosa & septum Neck: non-tender, supple Respiratory: clear to auscultation, normal air movement Cardiovascular: nl pulses, regular rate and rhythm Gastrointestinal: nl liver, spleen, non-tender, soft Musculoskeletal: nl extremities to inspection, nl gait and stance Extremities: normal pulses Neurological: CAN LINE OPERATOR II-XII intact, nl mental status, nl speech, nl strength Skin: nl turgor, No rash or lesions Lymph: nl lymph nodes Results Result Diagram: 09/03/1661409/03/16614 Results 24 hrs Laboratory Tests Test 09/04/16 16:35 Prealbumin 11.4 L Medications Medications Current Medications Famotidine (Pepcid) 20 mg DAILY PO Last administered on 09/04/16t 09:51; Admin Dose 20 MG; Start 08/29/16 at 09:00 Thiamine HCl (Vitamin B1) 100 mg DAILY PO Last administered on 09/04/16 09:51 ; Admin Dose 100 MG; Start 08/29/16 at 09:00 Gabapentin (Neurontin) 300 mg TID PO Last administered on 09/04/16 12:39; Admin Dose 300 MG; Start 08/29/16 at 09:00 Levothyroxine Sodium (Synthroid) 150 mcg DAILY@06 PO Last administered on 06:09; Admin Dose 150 MCG; Start 08/29/16 at 06:00 Folic Acid (Folic Acid) 1 mg DAILY PO Last administered on 09/04/16 09:51; Admin Dose 1 MG; Start 08/29/16 at 09:00 Montelukast Sodium (Singulair) 10 mg HS PO Last administered on 09/03/16 21:33 ; Admin Dose 10 MG; Start 08/29/16 at 21:00 Multivitamins/ Minerals (Theragran-M) 1 tab DAILY PO Last administered on 09:51; Admin Dose 1 TAB; Start 08/29/16 at 09:00 Ondansetron HCl (Zofran Inj) 4 mg Q6H PRN IV NAUSEA AND/OR VOMITING; Start 08/29 at 00:30 Heparin Sodium (Porcine) (Heparin (5000 Units/0.5 ml)) 5,000 unit BID SC Last administered on 09/04/16 09:48; Admin Dose 5,000 UNIT; Start 08/29/16 at 09:00 Trazodone HCl (Desyrel) 50 mg HS PO Last administered on 09/04/16 00:28; Admin Dose 50 MG; Start 08/29/16 at 21:00 Venlafaxine HCl (Effexor) 150 mg DAILY PO Last administered on 09/04/16 09:51 ; Admin Dose 150 MG; Start 08/29/16 at 09:00 Venlafaxine HCl (Effexor) 75 mg HS PO Last administered on 09/03/16 21:35; Admin Dose 75 MG; Start 08/29/16 at 21:00 Prenat Multivit/ School Librarian/Iron/Folic Ac ( S) 1 tab DAILY PO Last administered on 09/04/16 09:51; Admin Dose 1 TAB; Start 08/29/16 at 14:30 Lactobacillus Acidophilus/ Rhamnosus (Culturelle) 1 cap BID PO Last administered on 09/04/16 09:51; Admin Dose 1 CAP; Start 08/29/16 at 14:30 Morphine Sulfate (Ms Contin (Er)) 30 mg BID PO Last administered on 09/04/16 09:52; Admin Dose 30 MG; Start 08/29/16 at 21:00 Morphine Sulfate (morphine) 3 mg Q3H PRN IV BREAKTHROUGH PAIN Last administered on 09/04/16 18:01; Admin Dose 3 MG; Start 08/29/16 at 18:00 Fluticasone Propionate (Flonase 0.05% Nasal) 1 spray DAILY NASAL Last administered on 09/04/16 09:50; Admin Dose 1 SPRAY; Start 08/30/16 at 13:30 Methylprednisolone Sodium Succinate (Solu-Medrol) 40 mg BID IV Last administered on 09/04/16 09:50; Admin Dose 40 MG; Start 08/31/16 at 21:00 Mupirocin (Bactroban) 1 applic BID TOP Last administered on 09/04/16 09:51; Admin Dose 1 APPLIC; Start 08/31/16 at 12:30 Tolterodine Tartrate (Detrol La) 2 mg QHS PO Last administered on 09/03/16 21: 32; Admin Dose 2 MG; Start 08/31/16 at 21:00 IV Flush (NS 10 ml) 10 ml PRN PRN IV FLUSH LINE; Start 09/01/16 at 19:30 Triamcinolone Acetonide (Kenalog 0.025% Lotion) APPLY TO palms of hand BID TOP Last administered on 09/04/16 09:53; Admin Dose 1 APPLIC; Start 09/02/16 at 14: 30 Lactulose (Enulose) 20 gm Q8 PO Last administered on 09/04/16 13:37; Admin Dose 20 GM; Start 09/02/16 at 17:30 Metoclopramide HCl (Reglan) 10 mg Q6 IV Last administered on 09/04/16 18:01; Admin Dose 10 MG; Start 09/03/16 at 18:00 Furosemide (Lasix) 40 mg DAILY@06 PO ; Start 09/05/16 at 06:00 AMBER FERRO MD Sep 04, 2016 19:12
[2016-09-04 20:00] VITALS: BP 133/85; RESP 18
--- NOTE | 2016-09-04 20:34 | PN ---
DATE: 09/04/2016 SUBJECTIVE: The patient states she is not feeling well today. States that she has felt "sweaty." She denies any shaking chills. OBJECTIVE: GENERAL: The patient is a well-developed, but chronically ill-appearing female who is in no acute d istress. VITAL SIGNS: Temperature 98.1, pulse 110 per minute and regular, respirations 20, blood pressure 11 8/74, pulse oximetry 96%. SKIN: Pale. No ecchymoses. No petechiae or rashes. There is palmar and plantar erythema noted pr eviously, although it is less pronounced today. The desquamation is present. There is no bullous o r vesicle formation. HEENT: Normocephalic. No scleral icterus. Oral mucosa is moist without lesions. Mucosa is pale. NECK: Supple. No jugular venous distention or thyroid enlargement. CHEST: Decreased breath sounds in both bases, but no rhonchi, wheezes, rales, or rubs. HEART: Sinus tachycardia. No S3, S4, or murmurs. NODES: No palpable lymphadenopathy in lymph node bearing area. ABDOMEN: Soft. Mildly distended. There are no masses. Bowel sounds are active. EXTREMITIES: Good range of motion. No clubbing or cyanosis. There is bilateral trace pedal edema. The desquamation and erythema of the palmar aspects of the hands and plantar aspects of the feet a re noted above. LABORATORY DATA: All the lab ordered yesterday is still pending. IMAGING: CT scan of the chest does show some evidence of mild central lobular emphysema. There is evidence of the known gastric bypass. No other abnormalities are noted. There are no masses. No m esenteric or retroperitoneal lymphadenopathy. ASSESSMENT: 1. Rash with cellulitis and desquamation of palms and soles. 2. Malnutrition. 3. Elevated tumor markers, unclear etiology. 4. Chronic pain syndrome. PLAN: There is still no evidence of any malignancy. The patient's clinical presentation also suggests the possibility of bullous pemphigus. Unfortunate ly, the patient has received systemic corticosteroids and had what appears to be a resolution of the acute process. This, however, will make a biopsy proven diagnosis difficult until the process beco mes acute again. Other studies such as urine and serum porphyrin levels are pending. Dictated By: JACKSON BENITEZ MD SR/NTS Conf#: [id number] DID#: [id number] CC: TOSIN ENCARNACION;*[facility]*
[2016-09-04] MEDS: TOLTERODINE (SR) 2 MG CAP PO SCH (20:59)
[2016-09-04] MEDS: MONTELUKAST 10 MG TAB PO SCH (20:59)
--- NOTE | 2016-09-04 22:10 | RADRPT ---
PROCEDURE: Nuclear medicine whole-body bone scan CLINICAL INDICATION: History of cancer. Evaluate for metastatic disease. TECHNIQUE: 22.8 mCi of technetium-99m MDP was administered intravenously. Planar imaging of the w hole-body was performed in the anterior and posterior views. Spot images were obtained as well. Im ages were reviewed on the high resolution PACS workstation. COMPARISON: CT scan chest dated 09/03/2016 FINDINGS: There is normal uptake throughout the appendicular and axial skeleton. Normal physiologic activity is seen within the kidneys and bladder. Increase activity in the large joints of the body are seen as well consistent with degenerative disease. No abnormal hypermetabolic focus is identified to chavez sole neoplasm. The patient has a Bojorquez catheter in place. IMPRESSION: 1. Negative whole body bone scan. 2. No evidence for neoplastic disease. RPTAT: PP .Lane Wilson MD, Date Time Electronically viewed and signed by .Lane Wilson MD, on 09/04/2016 22:09 .B/
[2016-09-05] MEDS: LACTULOSE 30ML CUP PO SCH ×3 (05:56→21:12)
[2016-09-05] MEDS: morphine 4 MG/ML VIAL IV PRN ×6 (05:56→23:45)
[2016-09-05] MEDS: METOCLOPRAMIDE 10 MG INJ IV SCH ×4 (05:56→23:45)
[2016-09-05] MEDS: LEVOTHYROXINE 150 MCG TAB PO SCH (05:57)
[2016-09-05] MEDS: FUROSEMIDE 40 MG TAB PO SCH (06:00)
[2016-09-05 07:40] VITALS: BP 128/82; RESP 19
[2016-09-05] MEDS: VENLAFAXINE 75 MG TABLET PO SCH ×2 (08:13→20:35)
[2016-09-05] MEDS: LACTOBACILLUS RHAMNOSUS CAP PO SCH ×2 (08:13→20:35)
[2016-09-05] MEDS: MULTIVITAMINS/MINERALS TAB PO SCH (08:13)
[2016-09-05] MEDS: FOLIC ACID 1 MG TAB PO SCH (08:13)
[2016-09-05] MEDS: THIAMINE 100 MG TAB PO SCH (08:13)
[2016-09-05] MEDS: FLUTICASONE 0.05% 16 GM NAS SPRAY NASAL SCH (08:14)
[2016-09-05] MEDS: METHYLPREDNISOLONE 40 MG INJ IV SCH (08:14)
[2016-09-05] MEDS: GABAPENTIN 300 MG CAP PO SCH ×3 (08:14→20:34)
[2016-09-05] MEDS: FAMOTIDINE 20 MG TAB PO SCH (08:14)
[2016-09-05] MEDS: MULTIVIT/MIN/FOLATE/IRON/PREN TAB PO SCH (08:14)
[2016-09-05] MEDS: morphine (ER) 30 MG TAB PO SCH ×2 (08:14→21:12)
[2016-09-05] MEDS: MUPIROCIN 2% 22 GM OINT TOP SCH ×2 (08:15→20:38)
[2016-09-05] MEDS: TRIAMCINOLONE ACET 0.025% 60 ML LOT TOP SCH ×2 (08:16→20:38)
[2016-09-05] MEDS: HEPARIN 5,000 UNIT/0.5 ML VIAL SC SCH ×2 (08:31→20:41)
--- NOTE | 2016-09-05 09:24 | PN ---
Date/Time of Note Date/Time of Note DATE: 09/05/16 TIME: 09:23 Assessment/Plan VTE Prophylaxis VTE Prophylaxis Intervention: SCD's Lines/Catheters IV Catheter Type (from Nrsg): PICC Line Central line still needed: No Urinary Cath still in place: Yes Reason Cath still needed: other (indicate) (NOT NEEDED) Assessment/Plan Assessment/Plan 46-year-old female with history of chronic pain syndrome, prior alcohol use, pain and opioid dependence, cirrhosis, hypothyroidism, history of gastric bypass surgery and depression, presented with weakness and bilateral hands and lower extremity rash #rash: d/dx includes cellulitis v pemphigus v other -LE cellulitis resolved per ID. abx to be stopped -cont steroids (topical and systemic) for hands and feet-->CONVERT IV STEROIDS TO PO high dose steroids started .. Consider dose reduction 7 days after steroid initiation to prednisone 0.75 mg/kg (currently on 1 mg/kg) #LE edema: resolved -lasix converted to PO #protein calorie malnutrition: etio unclear. possibly 2/2 insufficient food access v consequence of her previous bypass surgery v other -work up ongoing. 24 urine collection ordered by other provider completed this AM -check pre albumin #elevated tumor markers: etio and clinical significanc unclear. CT 02/07 without pancreatic/hepatic mass CT chest and EGD 09.03 also unremarkable heme/onc following, appreciated assistance-->no evidence of malignancy #chronic pain: palliative/pain management on consult, appreciate assistance #depression: cont home meds #hypothyroid: cont synthroid dispo pending discharge arrangements Subjective 24 Hr Interval Summary Free Text/Dictation Pt feeling a little fatigued today. Hasn't been out of bed much. Exam/Review of Systems Vital Signs Vitals Vital Signs Date Time Temp Pulse Resp B/P Pulse Ox O2 Delivery O2 Flow Rate FiO2 09/05/16 07:40 98.5 87 19 128/82 96 09/03/16 13:57 Room Air 09/03/16 13:27 2.0 Intake and Output 09/04/16 09/04/16 09/05/16 15:00 23:00 07:00 Intake Total 250 ml 680 ml Output Total 600 ml Balance 250 ml 80 ml Exam nad, laying in bed no mrg lungs clear abd soft palms less red than yesterday, soles of feet unchanged Results Result Diagram: 09/03/1615 09/03/16 0615 Results 24 hrs Laboratory Tests Test 09/04/16 16:35 Prealbumin 11.4 L Medications Medications Current Medications Famotidine (Pepcid) 20 mg DAILY PO Last administered on 09/05/16 08:14; Admin Dose 20 MG; Start 08/29/16 at 09:00 Thiamine HCl (Vitamin B1) 100 mg DAILY PO Last administered on 09/05/16 08:13 ; Admin Dose 100 MG; Start 08/29/16 at 09:00 Gabapentin (Neurontin) 300 mg TID PO Last administered on 09/05/16 08:14; Admin Dose 300 MG; Start 08/29/16 at 09:00 Levothyroxine Sodium (Synthroid) 150 mcg DAILY@06 PO Last administered on 05:57; Admin Dose 150 MCG; Start 08/29/16 at 06:00 Folic Acid (Folic Acid) 1 mg DAILY PO Last administered on 09/05/16 08:13; Admin Dose 1 MG; Start 08/29/16 at 09:00 Montelukast Sodium (Singulair) 10 mg HS PO Last administered on 09/04/16 20:59 ; Admin Dose 10 MG; Start 08/29/16 at 21:00 Multivitamins/ Minerals (Theragran-M) 1 tab DAILY PO Last administered on 08:13; Admin Dose 1 TAB; Start 08/29/16 at 09:00 Ondansetron HCl (Zofran Inj) 4 mg Q6H PRN IV NAUSEA AND/OR VOMITING; Start 08/29 at 00:30 Heparin Sodium (Porcine) (Heparin (5000 Units/0.5 ml)) 5,000 unit BID SC Last administered on 09/05/16 08:31; Admin Dose 5,000 UNIT; Start 08/29/16 at 09:00 Trazodone HCl (Desyrel) 50 mg HS PO Last administered on 09/04/16 23:08; Admin Dose 50 MG; Start 08/29/16 at 21:00 Venlafaxine HCl (Effexor) 150 mg DAILY PO Last administered on 09/05/16 08:13 ; Admin Dose 150 MG; Start 08/29/16 at 09:00 Venlafaxine HCl (Effexor) 75 mg HS PO Last administered on 09/04/16 20:59; Admin Dose 75 MG; Start 08/29/16 at 21:00 Prenat Multivit/ Meat Cutter/Iron/Folic Ac ( S) 1 tab DAILY PO Last administered on 09/05/16 08:14; Admin Dose 1 TAB; Start 08/29/16 at 14:30 Lactobacillus Acidophilus/ Rhamnosus (Culturelle) 1 cap BID PO Last administered on 09/05/16 08:13; Admin Dose 1 CAP; Start 08/29/16 at 14:30 Morphine Sulfate (Ms Contin (Er)) 30 mg BID PO Last administered on 09/05/16 08:14; Admin Dose 30 MG; Start 08/29/16 at 21:00 Morphine Sulfate (morphine) 3 mg Q3H PRN IV BREAKTHROUGH PAIN Last administered on 09/05/16 05:56; Admin Dose 3 MG; Start 08/29/16 at 18:00 Fluticasone Propionate (Flonase 0.05% Nasal) 1 spray DAILY NASAL Last administered on 09/05/16 08:14; Admin Dose 1 SPRAY; Start 08/30/16 at 13:30 Methylprednisolone Sodium Succinate (Solu-Medrol) 40 mg BID IV Last administered on 09/05/16 08:14; Admin Dose 40 MG; Start 08/31/16 at 21:00 Mupirocin (Bactroban) 1 applic BID TOP Last administered on 09/05/16 08:15; Admin Dose 1 APPLIC; Start 08/31/16 at 12:30 Tolterodine Tartrate (Detrol La) 2 mg QHS PO Last administered on 09/04/16 20: 59; Admin Dose 2 MG; Start 08/31/16 at 21:00 IV Flush (NS 10 ml) 10 ml PRN PRN IV FLUSH LINE; Start 09/01/16 at 19:30 Triamcinolone Acetonide (Kenalog 0.025% Lotion) APPLY TO palms of hand BID TOP Last administered on 09/05/16 08:16; Admin Dose 1 APPLIC; Start 09/02/16 at 14: 30 Lactulose (Enulose) 20 gm Q8 PO Last administered on 09/05/16 05:56; Admin Dose 20 GM; Start 09/02/16 at 17:30 Metoclopramide HCl (Reglan) 10 mg Q6 IV Last administered on 09/05/16 05:56; Admin Dose 10 MG; Start 09/03/16 at 18:00 Furosemide (Lasix) 40 mg DAILY@06 PO Last administered on 09/05/16 06:00; Admin Dose 40 MG; Start 09/05/16 at 06:00 OLLIE YUEN MD Sep 05, 2016 09:24
[2016-09-05] MEDS: NYSTATIN SUSP 5 ML CUP PO SCH ×3 (13:27→20:34)
--- NOTE | 2016-09-05 14:37 | CONS ---
Date/Time of Note Date/Time of Note DATE: 09/05/16 TIME: 14:35 Assessment/Plan Assessment/Plan Chief Complaint/Hosp Course SUBJECTIVE: No acute changes. The patient is alert, feels weak, looks comfortable. No fevers. MICROBIOLOGY: Cultures remain negative. ALLERGIES: 1. PENICILLIN. 2. SULFA. 3. CEFACLOR. PHYSICAL EXAMINATION: GENERAL: This is a cachectic, well-developed, middle-aged woman, who is alert, in no distress. HEENT: Head atraumatic, normocephalic. Sclerae anicteric. Buccal mucosa pink. NECK: Supple. CHEST: Chest rise is symmetrical. Breath sounds clear. HEART: S1, S2. ABDOMEN: Soft. Bowel tones present. EXTREMITIES: Resolved BLE edema and erythema ASSESSMENT: 1. B lower extremity cellulitis==> resolved ?pemphigoid 2. History of ETOH abuse. 3. History of recurrent sepsis, urinary tract infection, pneumonia. 4. Cachexia and chronic pain syndrome. 5. Alcoholic liver cirrhosis. 6. History of gastric bypass surgery in the past. 7. Elevated CA 19-9 and CEA. 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 Severe gastroparesis===> s/p EGD PLAN: Stable. Off abx. Continue the present care. F/u recommendations of consultants DW staff/pt Problems: Consultation Date/Type/Reason Admit Date/Time Aug 28, 2016 at 22:59 Type of Consultation: ID Exam/Review of Systems Vital Signs Vitals Vital Signs Date Time Temp Pulse Resp B/P Pulse Ox O2 Delivery O2 Flow Rate FiO2 09/05/16 07:40 98.5 87 19 128/82 96 09/03/16 13:57 Room Air 09/03/16 13:27 2.0 Intake and Output 09/04/16 09/04/16 09/05/16 15:00 23:00 07:00 Intake Total 250 ml 680 ml Output Total 600 ml Balance 250 ml 80 ml Results Result Diagram: 09/03/16 0615 09/03/16 0615 Results 24 hrs Laboratory Tests Test 09/04/16 16:35 Prealbumin 11.4 L Medications Medications Current Medications Famotidine (Pepcid) 20 mg DAILY PO Last administered on 09/05/16t 08:14; Admin Dose 20 MG; Start 08/29/16 at 09:00 Thiamine HCl (Vitamin B1) 100 mg DAILY PO Last administered on 09/05/16 08:13 ; Admin Dose 100 MG; Start 08/29/16 at 09:00 Gabapentin (Neurontin) 300 mg TID PO Last administered on 09/05/16 12:20; Admin Dose 300 MG; Start 08/29/16 at 09:00 Levothyroxine Sodium (Synthroid) 150 mcg DAILY@06 PO Last administered on 05:57; Admin Dose 150 MCG; Start 08/29/16 at 06:00 Folic Acid (Folic Acid) 1 mg DAILY PO Last administered on 09/05/16 08:13; Admin Dose 1 MG; Start 08/29/16 at 09:00 Montelukast Sodium (Singulair) 10 mg HS PO Last administered on 09/04/16 20:59 ; Admin Dose 10 MG; Start 08/29/16 at 21:00 Multivitamins/ Minerals (Theragran-M) 1 tab DAILY PO Last administered on 08:13; Admin Dose 1 TAB; Start 08/29/16 at 09:00 Ondansetron HCl (Zofran Inj) 4 mg Q6H PRN IV NAUSEA AND/OR VOMITING; Start 08/29 at 00:30 Heparin Sodium (Porcine) (Heparin (5000 Units/0.5 ml)) 5,000 unit BID SC Last administered on 09/05/16 08:31; Admin Dose 5,000 UNIT; Start 08/29/16 at 09:00 Trazodone HCl (Desyrel) 50 mg HS PO Last administered on 09/04/16 23:08; Admin Dose 50 MG; Start 08/29/16 at 21:00 Venlafaxine HCl (Effexor) 150 mg DAILY PO Last administered on 09/05/16 08:13 ; Admin Dose 150 MG; Start 08/29/16 at 09:00 Venlafaxine HCl (Effexor) 75 mg HS PO Last administered on 09/04/16 20:59; Admin Dose 75 MG; Start 08/29/16 at 21:00 Prenat Multivit/ [place]/Iron/Folic Ac ( S) 1 tab DAILY PO Last administered on 09/05/16 08:14; Admin Dose 1 TAB; Start 08/29/16 at 14:30 Lactobacillus Acidophilus/ Rhamnosus (Culturelle) 1 cap BID PO Last administered on 09/05/16 08:13; Admin Dose 1 CAP; Start 08/29/16 at 14:30 Morphine Sulfate (Ms Contin (Er)) 30 mg BID PO Last administered on 09/05/16 08:14; Admin Dose 30 MG; Start 08/29/16 at 21:00 Morphine Sulfate (morphine) 3 mg Q3H PRN IV BREAKTHROUGH PAIN Last administered on 09/05/16 13:33; Admin Dose 3 MG; Start 08/29/16 at 18:00 Fluticasone Propionate (Flonase 0.05% Nasal) 1 spray DAILY NASAL Last administered on 09/05/16 08:14; Admin Dose 1 SPRAY; Start 08/30/16 at 13:30 Mupirocin (Bactroban) 1 applic BID TOP Last administered on 09/05/16 08:15; Admin Dose 1 APPLIC; Start 08/31/16 at 12:30 Tolterodine Tartrate (Detrol La) 2 mg QHS PO Last administered on 09/04/16 20: 59; Admin Dose 2 MG; Start 08/31/16 at 21:00 IV Flush (NS 10 ml) 10 ml PRN PRN IV FLUSH LINE; Start 09/01/16 at 19:30 Triamcinolone Acetonide (Kenalog 0.025% Lotion) APPLY TO palms of hand BID TOP Last administered on 09/05/16 08:16; Admin Dose 1 APPLIC; Start 09/02/16 at 14: 30 Lactulose (Enulose) 20 gm Q8 PO Last administered on 09/05/16 13:27; Admin Dose 20 GM; Start 09/02/16 at 17:30 Metoclopramide HCl (Reglan) 10 mg Q6 IV Last administered on 09/05/16 12:20; Admin Dose 10 MG; Start 09/03/16 at 18:00 Furosemide (Lasix) 40 mg DAILY@06 PO Last administered on 09/05/16 06:00; Admin Dose 40 MG; Start 09/05/16 at 06:00 Prednisone (Prednisone) 50 mg DAILY PO ; Start 09/06/16 at 09:00 Nystatin (Nystatin Susp) 5 ml QID PO Last administered on 6/14/17at 13:27; Admin Dose 5 ML; Start 09/05/16 at 13:00 SAMEER ESQUEDA NP Sep 05, 2016 14:36
--- NOTE | 2016-09-05 17:26 | PN ---
DATE: 09/05/2016 MEDICAL ONCOLOGY PROGRESS NOTE The patient is basically unchanged. The patient has had a bone scan which does not show any evidence of metastatic disease or any other abnormalities. The patient has had upper GI endoscopy which did show evidence of gastroparesis. Th e patient has been started metoclopramide. Biopsies taken during that procedure show no significant pathology. There is no evidence of maligna ncy, no evidence of fungal organisms. Still pending are the studies for porphyria, although I certainly feel this is highly unlikely. As noted, it will be difficult at this time to make any diagnosis regarding the patient's dermatolog ic issues as she has been started on corticosteroids which have been effective in relieving symptoms . Dictated By: JACKSON BENITEZ MD, SR/PAUL Conf#: [id number] DID#: [id number]
[2016-09-05] MEDS: MONTELUKAST 10 MG TAB PO SCH (20:35)
[2016-09-05] MEDS: TOLTERODINE (SR) 2 MG CAP PO SCH (20:35)
[2016-09-05 20:42] VITALS: BP 135/83; RESP 18
[2016-09-05] MEDS: traZODone 50 MG TAB PO SCH ×2 (21:00→23:52)
--- NOTE | 2016-09-06 03:13 | CONS ---
DATE OF ADMISSION: 08/28/2016 DATE OF CONSULTATION: GASTROINTESTINAL CONSULTATION HISTORY OF PRESENT ILLNESS: A 46-year-old female with a history of gastric bypass surgery, was admi tted for abdominal pain and redness in the arm, and also rash in the lower extremity. The patient w as started on steroids and antibiotics and condition improved. The patient underwent upper endoscop y for abdominal pain and high CEA level. Colonoscopy a few months ago was negative. Upper endoscop y revealed severe gastroparesis, and there was some whitish plaque-like lesion in the esophagus. Bi opsies came negative and patient was started on Reglan for her gastroparesis. She has no nausea, no vomiting. OBJECTIVE: VITALS: Stable. ABDOMEN: Benign. LUNGS: Clear. EXTREMITIES: No edema except for a palmar erythema. CENTRAL NERVOUS SYSTEM: Grossly within normal limits. IMPRESSION: 1. Lower extremity cellulitis which is responding to antibiotic and steroid. 2. Chronic pain syndrome. 3. Gastroparesis. 4. Status post gastric bypass surgery. 5. High CEA level, the etiology is unclear at this point. CAT scan is negative. EGD and colonosco py both negative. Bone scan also was negative. 6. Depression. 7. Hypothyroidism. PLAN: At this point is to continue PPI and Reglan. Continue antibiotic as per ID. Patient's CEA n eeds to be monitored periodically. Dictated By: AMBER NELSON/NTS Conf#: [id number] DID#: [id number] CC: TOSIN ENCARNACION;*EndCC*
[2016-09-06] MEDS: morphine 4 MG/ML VIAL IV PRN ×6 (05:31→21:50)
[2016-09-06] MEDS: LACTULOSE 30ML CUP PO SCH ×3 (05:31→21:49)
[2016-09-06] MEDS: METOCLOPRAMIDE 10 MG INJ IV SCH ×3 (05:31→17:36)
[2016-09-06] MEDS: LEVOTHYROXINE 150 MCG TAB PO SCH (05:31)
[2016-09-06] MEDS: FUROSEMIDE 40 MG TAB PO SCH ×2 (06:00→08:52)
[2016-09-06 07:32] VITALS: BP 147/88; RESP 20
[2016-09-06] MEDS: NYSTATIN SUSP 5 ML CUP PO SCH ×4 (08:50→20:56)
[2016-09-06] MEDS: predniSONE 50 MG TAB PO SCH (08:51)
[2016-09-06] MEDS: MULTIVIT/MIN/FOLATE/IRON/PREN TAB PO SCH (08:51)
[2016-09-06] MEDS: MULTIVITAMINS/MINERALS TAB PO SCH (08:51)
[2016-09-06] MEDS: VENLAFAXINE 75 MG TABLET PO SCH ×2 (08:51→20:57)
[2016-09-06] MEDS: FOLIC ACID 1 MG TAB PO SCH (08:51)
[2016-09-06] MEDS: THIAMINE 100 MG TAB PO SCH (08:51)
[2016-09-06] MEDS: FAMOTIDINE 20 MG TAB PO SCH (08:51)
[2016-09-06] MEDS: LACTOBACILLUS RHAMNOSUS CAP PO SCH ×2 (08:51→20:57)
[2016-09-06] MEDS: FLUTICASONE 0.05% 16 GM NAS SPRAY NASAL SCH (08:53)
[2016-09-06] MEDS: morphine (ER) 30 MG TAB PO SCH ×2 (08:53→20:57)
[2016-09-06] MEDS: MUPIROCIN 2% 22 GM OINT TOP SCH ×2 (08:53→20:58)
[2016-09-06] MEDS: GABAPENTIN 300 MG CAP PO SCH ×3 (08:53→20:57)
[2016-09-06] MEDS: TRIAMCINOLONE ACET 0.025% 60 ML LOT TOP SCH ×2 (08:54→20:58)
[2016-09-06] MEDS: HEPARIN 5,000 UNIT/0.5 ML VIAL SC SCH ×2 (09:19→21:12)
--- NOTE | 2016-09-06 12:54 | PN ---
Date/Time of Note Date/Time of Note DATE: 09/06/16 TIME: 12:50 Assessment/Plan VTE Prophylaxis VTE Prophylaxis Intervention: other (per primary MD) Lines/Catheters IV Catheter Type (from Nrsg): PICC Line Central line still needed: Yes Urinary Cath still in place: Yes Reason Cath still needed: other (indicate) (weakness) Assessment/Plan Assessment/Plan Rash is slowly improving per patient and other notes. Porphyria studies pending. Malnutrition is still present but she says she is eating better. Continue current plans. No signs of cancer despite marginally elevated tumor markers. Subjective 24 Hr Interval Summary Free Text/Dictation Pt is comfortable. She says that rash is improving. Exam/Review of Systems Vital Signs Vitals Vital Signs Date Time Temp Pulse Resp B/P Pulse Ox O2 Delivery O2 Flow Rate FiO2 09/06/16 07:32 98.4 20 147/88 93 09/05/16 20:42 94 09/05/16 20:00 Room Air 09/03/16 13:27 2.0 Intake and Output 09/05/16 09/05/16 09/06/16 15:00 23:00 07:00 Intake Total 1340 ml 340 ml Output Total 2400 ml 400 ml Balance -1060 ml -60 ml Exam Constitutional: alert, oriented Head: normocephalic Eyes: nl conjunctiva ENMT: nl external ears & nose Neck: supple Respiratory: clear to auscultation Cardiovascular: regular rate and rhythm Gastrointestinal: soft Skin: other (redness and desquamation of the palms and soles) Results Result Diagram: 09/03/16 0615 09/03/16 0615 Medications Medications Current Medications Famotidine (Pepcid) 20 mg DAILY PO Last administered on 09/06/16 08:51; Admin Dose 20 MG; Start 08/29/16 at 09:00 Thiamine HCl (Vitamin B1) 100 mg DAILY PO Last administered on 09/06/16 08:51 ; Admin Dose 100 MG; Start 08/29/16 at 09:00 Gabapentin (Neurontin) 300 mg TID PO Last administered on 09/06/16 12:14; Admin Dose 300 MG; Start 08/29/16 at 09:00 Levothyroxine Sodium (Synthroid) 150 mcg DAILY@06 PO Last administered on 05:31; Admin Dose 150 MCG; Start 08/29/16 at 06:00 Folic Acid (Folic Acid) 1 mg DAILY PO Last administered on 09/06/16 08:51; Admin Dose 1 MG; Start 08/29/16 at 09:00 Montelukast Sodium (Singulair) 10 mg HS PO Last administered on 09/05/16 20:35 ; Admin Dose 10 MG; Start 08/29/16 at 21:00 Multivitamins/ Minerals (Theragran-M) 1 tab DAILY PO Last administered on 08:51; Admin Dose 1 TAB; Start 08/29/16 at 09:00 Ondansetron HCl (Zofran Inj) 4 mg Q6H PRN IV NAUSEA AND/OR VOMITING; Start 08/29 at 00:30 Heparin Sodium (Porcine) (Heparin (5000 Units/0.5 ml)) 5,000 unit BID SC Last administered on 09/06/16 09:19; Admin Dose 5,000 UNIT; Start 08/29/16 at 09:00 Trazodone HCl (Desyrel) 50 mg HS PO Last administered on 09/05/16 23:52; Admin Dose 50 MG; Start 08/29/16 at 21:00 Venlafaxine HCl (Effexor) 150 mg DAILY PO Last administered on 09/06/16 08:51 ; Admin Dose 150 MG; Start 08/29/16 at 09:00 Venlafaxine HCl (Effexor) 75 mg HS PO Last administered on 09/05/16 20:35; Admin Dose 75 MG; Start 08/29/16 at 21:00 Prenat Multivit/ [place]/Iron/Folic Ac ( S) 1 tab DAILY PO Last administered on 09/06/16 08:51; Admin Dose 1 TAB; Start 08/29/16 at 14:30 Lactobacillus Acidophilus/ Rhamnosus (Culturelle) 1 cap BID PO Last administered on 09/06/16 08:51; Admin Dose 1 CAP; Start 08/29/16 at 14:30 Morphine Sulfate (Ms Contin (Er)) 30 mg BID PO Last administered on 09/06/16 08:53; Admin Dose 30 MG; Start 08/29/16 at 21:00 Morphine Sulfate (morphine) 3 mg Q3H PRN IV BREAKTHROUGH PAIN Last administered on 09/06/16 12:15; Admin Dose 3 MG; Start 08/29/16 at 18:00 Fluticasone Propionate (Flonase 0.05% Nasal) 1 spray DAILY NASAL Last administered on 09/06/16 08:53; Admin Dose 1 SPRAY; Start 08/30/16 at 13:30 Mupirocin (Bactroban) 1 applic BID TOP Last administered on 09/06/16 08:53; Admin Dose 1 APPLIC; Start 08/31/16 at 12:30 Tolterodine Tartrate (Detrol La) 2 mg QHS PO Last administered on 09/05/16 20: 35; Admin Dose 2 MG; Start 08/31/16 at 21:00 IV Flush (NS 10 ml) 10 ml PRN PRN IV FLUSH LINE; Start 09/01/16 at 19:30 Triamcinolone Acetonide (Kenalog 0.025% Lotion) APPLY TO palms of hand BID TOP Last administered on 09/06/16 08:54; Admin Dose 1 APPLIC; Start 09/02/16 at 14: 30 Lactulose (Enulose) 20 gm Q8 PO Last administered on 09/06/16 05:31; Admin Dose 20 GM; Start 09/02/16 at 17:30 Metoclopramide HCl (Reglan) 10 mg Q6 IV Last administered on 09/06/16 12:14; Admin Dose 10 MG; Start 09/03/16 at 18:00 Furosemide (Lasix) 40 mg DAILY@06 PO Last administered on 09/06/16 08:52; Admin Dose 40 MG; Start 09/05/16 at 06:00 Prednisone (Prednisone) 50 mg DAILY PO Last administered on 09/06/16 08:51; Admin Dose 50 MG; Start 09/06/16 at 09:00 Nystatin (Nystatin Susp) 5 ml QID PO Last administered on 09/06/16 12:14; Admin Dose 5 ML; Start 09/05/16 at 13:00 ALEXA LYNN MD Sep 06, 2016 12:54
--- NOTE | 2016-09-06 17:09 | PN ---
Date/Time of Note Date/Time of Note DATE: 09/06/16 TIME: 17:09 Assessment/Plan VTE Prophylaxis VTE Prophylaxis Intervention: SCD's Lines/Catheters IV Catheter Type (from Nrsg): PICC Line Central line still needed: No Urinary Cath still in place: No Assessment/Plan Assessment/Plan 46-year-old female with history of chronic pain syndrome, prior alcohol use, pain and opioid dependence, cirrhosis, hypothyroidism, history of gastric bypass surgery and depression, presented with weakness and bilateral hands and lower extremity rash #rash: d/dx includes cellulitis v pemphigus v other -LE cellulitis resolved per ID. abx to be stopped -cont steroids (topical and systemic) for hands and feet-->CONVERTED IV STEROIDS TO PO high dose steroids started .. Consider dose reduction 7 days after steroid initiation to prednisone 0.75 mg/kg (currently on 1 mg/kg) #LE edema: resolved -cont PO lasix #protein calorie malnutrition: etio unclear. possibly 2/2 insufficient food access v consequence of her previous bypass surgery v other -work up ongoing. 24 urine collection ordered by other provider completed this AM #elevated tumor markers: etio and clinical significanc unclear. CT 02/07 without pancreatic/hepatic mass CT chest and EGD 09.03 also unremarkable heme/onc following, appreciated assistance-->no evidence of malignancy #chronic pain: palliative/pain management on consult, appreciate assistance #depression: cont home meds #hypothyroid: cont synthroid dispo pending discharge arrangements Subjective 24 Hr Interval Summary Free Text/Dictation Feels ok. Exam/Review of Systems Vital Signs Vitals Vital Signs Date Time Temp Pulse Resp B/P Pulse Ox O2 Delivery O2 Flow Rate FiO2 09/06/16 07:32 98.4 20 147/88 93 09/05/16 20:42 94 09/05/16 20:00 Room Air 09/03/16 13:27 2.0 Intake and Output 09/05/16 09/05/16 09/06/16 15:00 23:00 07:00 Intake Total 1340 ml 340 ml Output Total 2400 ml 400 ml Balance -1060 ml -60 ml Exam +cachectic no mrg lungs clear abd soft rash improving Results Result Diagram: 09/03/1661409/03/16614 Medications Medications Current Medications Famotidine (Pepcid) 20 mg DAILY PO Last administered on 09/06/16 08:51; Admin Dose 20 MG; Start 08/29/16 at 09:00 Thiamine HCl (Vitamin B1) 100 mg DAILY PO Last administered on 09/06/16 08:51 ; Admin Dose 100 MG; Start 08/29/16 at 09:00 Gabapentin (Neurontin) 300 mg TID PO Last administered on 09/06/16 12:14; Admin Dose 300 MG; Start 08/29/16 at 09:00 Levothyroxine Sodium (Synthroid) 150 mcg DAILY@06 PO Last administered on 05:31; Admin Dose 150 MCG; Start 08/29/16 at 06:00 Folic Acid (Folic Acid) 1 mg DAILY PO Last administered on 09/06/16 08:51; Admin Dose 1 MG; Start 08/29/16 at 09:00 Montelukast Sodium (Singulair) 10 mg HS PO Last administered on 09/05/16 20:35 ; Admin Dose 10 MG; Start 08/29/16 at 21:00 Multivitamins/ Minerals (Theragran-M) 1 tab DAILY PO Last administered on 08:51; Admin Dose 1 TAB; Start 08/29/16 at 09:00 Ondansetron HCl (Zofran Inj) 4 mg Q6H PRN IV NAUSEA AND/OR VOMITING; Start 08/29 at 00:30 Heparin Sodium (Porcine) (Heparin (5000 Units/0.5 ml)) 5,000 unit BID SC Last administered on 09/06/16 09:19; Admin Dose 5,000 UNIT; Start 08/29/16 at 09:00 Trazodone HCl (Desyrel) 50 mg HS PO Last administered on 09/05/16 23:52; Admin Dose 50 MG; Start 08/29/16 at 21:00 Venlafaxine HCl (Effexor) 150 mg DAILY PO Last administered on 09/06/16 08:51 ; Admin Dose 150 MG; Start 08/29/16 at 09:00 Venlafaxine HCl (Effexor) 75 mg HS PO Last administered on 09/05/16 20:35; Admin Dose 75 MG; Start 08/29/16 at 21:00 Prenat Multivit/ [place]/Iron/Folic Ac ( S) 1 tab DAILY PO Last administered on 09/06/16 08:51; Admin Dose 1 TAB; Start 08/29/16 at 14:30 Lactobacillus Acidophilus/ Rhamnosus (Culturelle) 1 cap BID PO Last administered on 09/06/16 08:51; Admin Dose 1 CAP; Start 08/29/16 at 14:30 Morphine Sulfate (Ms Contin (Er)) 30 mg BID PO Last administered on 09/06/16 08:53; Admin Dose 30 MG; Start 08/29/16 at 21:00 Morphine Sulfate (morphine) 3 mg Q3H PRN IV BREAKTHROUGH PAIN Last administered on 09/06/16 15:27; Admin Dose 3 MG; Start 08/29/16 at 18:00 Fluticasone Propionate (Flonase 0.05% Nasal) 1 spray DAILY NASAL Last administered on 09/06/16 08:53; Admin Dose 1 SPRAY; Start 08/30/16 at 13:30 Mupirocin (Bactroban) 1 applic BID TOP Last administered on 09/06/16 08:53; Admin Dose 1 APPLIC; Start 08/31/16 at 12:30 Tolterodine Tartrate (Detrol La) 2 mg QHS PO Last administered on 09/05/16 20: 35; Admin Dose 2 MG; Start 08/31/16 at 21:00 IV Flush (NS 10 ml) 10 ml PRN PRN IV FLUSH LINE; Start 09/01/16 at 19:30 Triamcinolone Acetonide (Kenalog 0.025% Lotion) APPLY TO palms of hand BID TOP Last administered on 09/06/16 08:54; Admin Dose 1 APPLIC; Start 09/02/16 at 14: 30 Lactulose (Enulose) 20 gm Q8 PO Last administered on 09/06/16 14:23; Admin Dose 20 GM; Start 09/02/16 at 17:30 Metoclopramide HCl (Reglan) 10 mg Q6 IV Last administered on 09/06/16 12:14; Admin Dose 10 MG; Start 09/03/16 at 18:00 Furosemide (Lasix) 40 mg DAILY@06 PO Last administered on 09/06/16 08:52; Admin Dose 40 MG; Start 09/05/16 at 06:00 Prednisone (Prednisone) 50 mg DAILY PO Last administered on 09/06/16 08:51; Admin Dose 50 MG; Start 09/06/16 at 09:00 Nystatin (Nystatin Susp) 5 ml QID PO Last administered on 09/06/16 12:14; Admin Dose 5 ML; Start 09/05/16 at 13:00 OLLIE YUEN MD Sep 06, 2016 17:09
--- NOTE | 2016-09-06 19:33 | CONS ---
Date/Time of Note Date/Time of Note DATE: 09/06/16 TIME: 19:32 Assessment/Plan Assessment/Plan Additional Assessment/Plan IMPRESSION: 1. Lower extremity cellulitis which is responding to antibiotic and steroid. 2. Chronic pain syndrome. 3. Gastroparesis. 4. Status post gastric bypass surgery. 5. High CEA level, the etiology is unclear at this point. CAT scan is negative. EGD and colonoscopy both negative. Bone scan also was negative. 6. Depression. 7. Hypothyroidism. 8. Palmar erythema 9. Anemia PLAN: At this point is to continue PPI and Reglan. Continue antibiotic as per ID. Patient's CEA needs to be monitored periodically. Workup for porphyria is in process Consultation Date/Type/Reason Admit Date/Time Aug 28, 2016 at 22:59 Type of Consultation: ID 24 HR Interval Summary Constitutional: improved Exam/Review of Systems Vital Signs Vitals Vital Signs Date Time Temp Pulse Resp B/P Pulse Ox O2 Delivery O2 Flow Rate FiO2 09/06/16 07:32 98.4 20 147/88 93 09/05/16 20:42 94 09/05/16 20:00 Room Air 09/03/16 13:27 2.0 Intake and Output 09/05/16 09/05/16 09/06/16 15:00 23:00 07:00 Intake Total 1340 ml 340 ml Output Total 2400 ml 400 ml Balance -1060 ml -60 ml Exam Constitutional: alert, oriented, well developed Psych: nl mood/affect, no complaints Head: atraumatic, normocephalic Eyes: EOMI, PERRL, nl conjunctiva, nl lids, nl sclera ENMT: nl external ears & nose, nl lips & teeth, nl nasal mucosa & septum Neck: non-tender, supple Respiratory: clear to auscultation, normal air movement Cardiovascular: nl pulses, regular rate and rhythm Gastrointestinal: nl liver, spleen, non-tender, soft Musculoskeletal: nl extremities to inspection, nl gait and stance Extremities: normal pulses Neurological: HOSPITAL [employer]INIC ASSISTANT II-XII intact, nl mental status, nl speech, nl strength Skin: nl turgor, No rash or lesions Lymph: nl lymph nodes Results Result Diagram: 09/03/1661409/03/16614 Medications Medications Current Medications Famotidine (Pepcid) 20 mg DAILY PO Last administered on 09/06/16 08:51; Admin Dose 20 MG; Start 08/29/16 at 09:00 Thiamine HCl (Vitamin B1) 100 mg DAILY PO Last administered on 09/06/16 08:51 ; Admin Dose 100 MG; Start 08/29/16 at 09:00 Gabapentin (Neurontin) 300 mg TID PO Last administered on 09/06/16 12:14; Admin Dose 300 MG; Start 08/29/16 at 09:00 Levothyroxine Sodium (Synthroid) 150 mcg DAILY@06 PO Last administered on 05:31; Admin Dose 150 MCG; Start 08/29/16 at 06:00 Folic Acid (Folic Acid) 1 mg DAILY PO Last administered on 09/06/16 08:51; Admin Dose 1 MG; Start 08/29/16 at 09:00 Montelukast Sodium (Singulair) 10 mg HS PO Last administered on 09/05/16 20:35 ; Admin Dose 10 MG; Start 08/29/16 at 21:00 Multivitamins/ Minerals (Theragran-M) 1 tab DAILY PO Last administered on 08:51; Admin Dose 1 TAB; Start 08/29/16 at 09:00 Ondansetron HCl (Zofran Inj) 4 mg Q6H PRN IV NAUSEA AND/OR VOMITING; Start 08/29 at 00:30 Heparin Sodium (Porcine) (Heparin (5000 Units/0.5 ml)) 5,000 unit BID SC Last administered on 09/06/16 09:19; Admin Dose 5,000 UNIT; Start 08/29/16 at 09:00 Trazodone HCl (Desyrel) 50 mg HS PO Last administered on 09/05/16 23:52; Admin Dose 50 MG; Start 08/29/16 at 21:00 Venlafaxine HCl (Effexor) 150 mg DAILY PO Last administered on 09/06/16 08:51 ; Admin Dose 150 MG; Start 08/29/16 at 09:00 Venlafaxine HCl (Effexor) 75 mg HS PO Last administered on 09/05/16 20:35; Admin Dose 75 MG; Start 08/29/16 at 21:00 Prenat Multivit/ [place]/Iron/Folic Ac ( S) 1 tab DAILY PO Last administered on 09/06/16 08:51; Admin Dose 1 TAB; Start 08/29/16 at 14:30 Lactobacillus Acidophilus/ Rhamnosus (Culturelle) 1 cap BID PO Last administered on 09/06/16 08:51; Admin Dose 1 CAP; Start 08/29/16 at 14:30 Morphine Sulfate (Ms Contin (Er)) 30 mg BID PO Last administered on 09/06/16 08:53; Admin Dose 30 MG; Start 08/29/16 at 21:00 Morphine Sulfate (morphine) 3 mg Q3H PRN IV BREAKTHROUGH PAIN Last administered on 09/06/16 18:45; Admin Dose 3 MG; Start 08/29/16 at 18:00 Fluticasone Propionate (Flonase 0.05% Nasal) 1 spray DAILY NASAL Last administered on 09/06/16 08:53; Admin Dose 1 SPRAY; Start 08/30/16 at 13:30 Mupirocin (Bactroban) 1 applic BID TOP Last administered on 09/06/16 08:53; Admin Dose 1 APPLIC; Start 08/31/16 at 12:30 Tolterodine Tartrate (Detrol La) 2 mg QHS PO Last administered on 09/05/16 20: 35; Admin Dose 2 MG; Start 08/31/16 at 21:00 IV Flush (NS 10 ml) 10 ml PRN PRN IV FLUSH LINE; Start 09/01/16 at 19:30 Triamcinolone Acetonide (Kenalog 0.025% Lotion) APPLY TO palms of hand BID TOP Last administered on 09/06/16 08:54; Admin Dose 1 APPLIC; Start 09/02/16 at 14: 30 Lactulose (Enulose) 20 gm Q8 PO Last administered on 09/06/16 14:23; Admin Dose 20 GM; Start 09/02/16 at 17:30 Metoclopramide HCl (Reglan) 10 mg Q6 IV Last administered on 09/06/16 17:36; Admin Dose 10 MG; Start 09/03/16 at 18:00 Furosemide (Lasix) 40 mg DAILY@06 PO Last administered on 09/06/16 08:52; Admin Dose 40 MG; Start 09/05/16 at 06:00 Prednisone (Prednisone) 50 mg DAILY PO Last administered on 09/06/16 08:51; Admin Dose 50 MG; Start 09/06/16 at 09:00 Nystatin (Nystatin Susp) 5 ml QID PO Last administered on 09/06/16 17:36; Admin Dose 5 ML; Start 09/05/16 at 13:00 AMBER FERRO MD Sep 06, 2016 19:33
[2016-09-06 20:00] VITALS: BP 147/94; RESP 18
[2016-09-06] MEDS: MONTELUKAST 10 MG TAB PO SCH (20:57)
[2016-09-06] MEDS: TOLTERODINE (SR) 2 MG CAP PO SCH (20:57)
[2016-09-06] MEDS: traZODone 50 MG TAB PO SCH (21:00)
[2016-09-07] MEDS: traZODone 50 MG TAB PO SCH ×2 (00:54→21:06)
[2016-09-07] MEDS: METOCLOPRAMIDE 10 MG INJ IV SCH ×5 (00:54→23:13)
[2016-09-07] MEDS: morphine 4 MG/ML VIAL IV PRN ×8 (00:54→23:25)
[2016-09-07] MEDS: FUROSEMIDE 40 MG TAB PO SCH ×2 (06:00→09:00)
[2016-09-07] MEDS: LACTULOSE 30ML CUP PO SCH ×3 (06:36→21:06)
[2016-09-07] MEDS: LEVOTHYROXINE 150 MCG TAB PO SCH (06:36)
[2016-09-07 08:20] VITALS: BP 115/75; RESP 18
[2016-09-07] MEDS: FLUTICASONE 0.05% 16 GM NAS SPRAY NASAL SCH (08:58)
[2016-09-07] MEDS: MUPIROCIN 2% 22 GM OINT TOP SCH ×2 (08:58→20:20)
[2016-09-07] MEDS: VENLAFAXINE 75 MG TABLET PO SCH ×2 (08:59→20:19)
[2016-09-07] MEDS: morphine (ER) 30 MG TAB PO SCH ×2 (09:00→21:06)
[2016-09-07] MEDS: FAMOTIDINE 20 MG TAB PO SCH (09:00)
[2016-09-07] MEDS: MULTIVITAMINS/MINERALS TAB PO SCH (09:00)
[2016-09-07] MEDS: THIAMINE 100 MG TAB PO SCH (09:00)
[2016-09-07] MEDS: GABAPENTIN 300 MG CAP PO SCH ×3 (09:00→20:19)
[2016-09-07] MEDS: MULTIVIT/MIN/FOLATE/IRON/PREN TAB PO SCH (09:01)
[2016-09-07] MEDS: predniSONE 50 MG TAB PO SCH (09:01)
[2016-09-07] MEDS: NYSTATIN SUSP 5 ML CUP PO SCH ×4 (09:01→20:18)
[2016-09-07] MEDS: LACTOBACILLUS RHAMNOSUS CAP PO SCH ×2 (09:01→20:19)
[2016-09-07] MEDS: FOLIC ACID 1 MG TAB PO SCH (09:01)
[2016-09-07] MEDS: TRIAMCINOLONE ACET 0.025% 60 ML LOT TOP SCH ×2 (09:02→20:22)
[2016-09-07] MEDS: HEPARIN 5,000 UNIT/0.5 ML VIAL SC SCH ×2 (09:10→20:27)
--- NOTE | 2016-09-07 09:43 | PN ---
DATE: 09/07/2016 SUBJECTIVE: The patient states that she is now feeling relatively well. Is tolerating metocloprami de. She has had no nausea, vomiting or symptoms of reflux. OBJECTIVE: GENERAL: The patient is a well-developed, chronically ill-appearing female, who is in no acute dist ress. VITAL SIGNS: Temperature 98.8, pulse 100 per minute and regular, respirations 18, blood pressure 11 5/75, pulse oximetry 95% on room air. SKIN: Pale. No ecchymosis, petechiae or rashes. There is desquamation of the palmar aspects of th e hands and plantar aspects of the feet. There is no bullous or vesicle formation. HEENT: Normocephalic. No evidence of trauma. The pupils are equal, round and react to light and a ccommodation. Sclerae are nonicteric. Oral mucosa is moist, without lesions. It is pale. Tongue is well papillated. No gingival hyperplasia, no hypertrophy of Waldeyer's ring. NECK: Supple. No jugular venous distention or thyroid enlargement. CHEST: Clear to auscultation and percussion. No rhonchi, wheezes, rales or rubs. NODES: No palpable lymphadenopathy in any lymph node-bearing area. HEART: Sinus tachycardia. No S3, S4 or murmurs. ABDOMEN: Soft. No masses, no ascites. EXTREMITIES: No clubbing or cyanosis. No palpable cords or Homans sign. There are changes noted o n the palmar aspects of the hands and the plantar aspects of the feet. NEUROLOGIC: Normal. ASSESSMENT: 1. Rash with cellulitis and desquamation of the palms of the hands and soles of the feet. 2. Malnutrition. 3. Elevated tumor markers, without obvious malignancy. 4. Chronic pain syndrome. The patient has no recurrence of the dermatologic issues that have resulted in the patient's admissi on. She does remain on prednisone, presently receiving 50 mg on a daily basis. The patient had another extensive evaluation and has not been found to have a malignancy. This is t he third such evaluation the patient has gone through since she was found to have elevated tumor mar kers. As previously noted, obtaining tumor markers as a "screening" often results in false positive results and initiates extensive workup, which is often not revealing. 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 There are no further hematologic or oncologic recommendations at this time. Discharge, however, may prove to be a problem, as this patient was admitted to the hospital from a homeless intermediate rather than from a halfway facility. Dictated By: JACKSON BENITEZ MD, SR/PAUL Conf#: [id number] DID#: [id number]
--- NOTE | 2016-09-07 09:51 | PN ---
Date/Time of Note Date/Time of Note DATE: 09/07/16 TIME: 09:51 Assessment/Plan VTE Prophylaxis VTE Prophylaxis Intervention: SCD's Lines/Catheters IV Catheter Type (from Nrsg): PICC Line Central line still needed: No Urinary Cath still in place: No Assessment/Plan Assessment/Plan 46-year-old female with history of chronic pain syndrome, prior alcohol use, pain and opioid dependence, cirrhosis, hypothyroidism, history of gastric bypass surgery and depression, presented with weakness and bilateral hands and lower extremity rash #rash: d/dx includes cellulitis v pemphigus v other -LE cellulitis resolved per ID. abx to be stopped -cont steroids (topical and systemic) for hands and feet-->CONVERTED IV STEROIDS TO PO high dose steroids started .. Consider dose reduction 7 days after steroid initiation to prednisone 0.75 mg/kg (currently on 1 mg/kg) defer for now given ongoing hand peeling WILL NEED DERM F/U AT DISCHARGE #LE edema: resolved -cont PO lasix #protein calorie malnutrition: etio unclear. possibly 2/2 insufficient food access v consequence of her previous bypass surgery v other -work up ongoing. 24 urine collection ordered by other provider completed 09.06 #elevated tumor markers: etio and clinical significanc unclear. CT 02/07 without pancreatic/hepatic mass CT chest and EGD 09.03 also unremarkable heme/onc following, appreciated assistance-->no evidence of malignancy #chronic pain: palliative/pain management on consult, appreciate assistance #depression: cont home meds #hypothyroid: cont synthroid dispo pending discharge arrangements Subjective 24 Hr Interval Summary Free Text/Dictation Feels ok. Hands still peeling. Anxious about potential discharge. Exam/Review of Systems Vital Signs Vitals Vital Signs Date Time Temp Pulse Resp B/P Pulse Ox O2 Delivery O2 Flow Rate FiO2 09/07/16 08:20 98.8 100 18 115/75 95 09/06/16 20:00 Room Air 09/03/16 13:27 2.0 Intake and Output 09/06/16 09/06/16 09/07/16 15:00 23:00 07:00 Intake Total 2480 ml 600 ml Output Total 2900 ml 450 ml Balance -420 ml 150 ml Exam nad, sitting up in bed, eating breakfast no mrg lungs clear abd soft still with peeling on pals Results Result Diagram: 09/03/1661409/03/16614 Medications Medications Current Medications Famotidine (Pepcid) 20 mg DAILY PO Last administered on 09/07/16 09:00; Admin Dose 20 MG; Start 08/29/16 at 09:00 Thiamine HCl (Vitamin B1) 100 mg DAILY PO Last administered on 09/07/16 09:00 ; Admin Dose 100 MG; Start 08/29/16 at 09:00 Gabapentin (Neurontin) 300 mg TID PO Last administered on 09/07/16 09:00; Admin Dose 300 MG; Start 08/29/16 at 09:00 Levothyroxine Sodium (Synthroid) 150 mcg DAILY@06 PO Last administered on 06:36; Admin Dose 150 MCG; Start 08/29/16 at 06:00 Folic Acid (Folic Acid) 1 mg DAILY PO Last administered on 09/07/16 09:01; Admin Dose 1 MG; Start 08/29/16 at 09:00 Montelukast Sodium (Singulair) 10 mg HS PO Last administered on 09/06/16 20:57 ; Admin Dose 10 MG; Start 08/29/16 at 21:00 Multivitamins/ Minerals (Theragran-M) 1 tab DAILY PO Last administered on 09:00; Admin Dose 1 TAB; Start 08/29/16 at 09:00 Ondansetron HCl (Zofran Inj) 4 mg Q6H PRN IV NAUSEA AND/OR VOMITING; Start 08/29 at 00:30 Heparin Sodium (Porcine) (Heparin (5000 Units/0.5 ml)) 5,000 unit BID SC Last administered on 09/07/16 09:10; Admin Dose 5,000 UNIT; Start 08/29/16 at 09:00 Trazodone HCl (Desyrel) 50 mg HS PO Last administered on 09/05/16 23:52; Admin Dose 50 MG; Start 08/29/16 at 21:00 Venlafaxine HCl (Effexor) 150 mg DAILY PO Last administered on 09/07/16 08:59 ; Admin Dose 150 MG; Start 08/29/16 at 09:00 Venlafaxine HCl (Effexor) 75 mg HS PO Last administered on 09/06/16 20:57; Admin Dose 75 MG; Start 08/29/16 at 21:00 Prenat Multivit/ [place]/Iron/Folic Ac ( S) 1 tab DAILY PO Last administered on 09/07/16 09:01; Admin Dose 1 TAB; Start 08/29/16 at 14:30 Lactobacillus Acidophilus/ Rhamnosus (Culturelle) 1 cap BID PO Last administered on 09/07/16 09:01; Admin Dose 1 CAP; Start 08/29/16 at 14:30 Morphine Sulfate (Ms Contin (Er)) 30 mg BID PO Last administered on 09/07/16 09:00; Admin Dose 30 MG; Start 08/29/16 at 21:00 Morphine Sulfate (morphine) 3 mg Q3H PRN IV BREAKTHROUGH PAIN Last administered on 09/07/16 08:03; Admin Dose 3 MG; Start 08/29/16 at 18:00 Fluticasone Propionate (Flonase 0.05% Nasal) 1 spray DAILY NASAL Last administered on 09/07/16 08:58; Admin Dose 1 SPRAY; Start 08/30/16 at 13:30 Mupirocin (Bactroban) 1 applic BID TOP Last administered on 09/07/16 08:58; Admin Dose 1 APPLIC; Start 08/31/16 at 12:30 Tolterodine Tartrate (Detrol La) 2 mg QHS PO Last administered on 09/06/16 20: 57; Admin Dose 2 MG; Start 08/31/16 at 21:00 IV Flush (NS 10 ml) 10 ml PRN PRN IV FLUSH LINE; Start 09/01/16 at 19:30 Triamcinolone Acetonide (Kenalog 0.025% Lotion) APPLY TO palms of hand BID TOP Last administered on 09/07/16 09:02; Admin Dose 1 APPLIC; Start 09/02/16 at 14: 30 Lactulose (Enulose) 20 gm Q8 PO Last administered on 09/07/16 06:36; Admin Dose 20 GM; Start 09/02/16 at 17:30 Metoclopramide HCl (Reglan) 10 mg Q6 IV Last administered on 09/07/16 06:36; Admin Dose 10 MG; Start 09/03/16 at 18:00 Furosemide (Lasix) 40 mg DAILY@06 PO Last administered on 09/07/16 09:00; Admin Dose 40 MG; Start 09/05/16 at 06:00 Prednisone (Prednisone) 50 mg DAILY PO Last administered on 09/07/16 09:01; Admin Dose 50 MG; Start 09/06/16 at 09:00 Nystatin (Nystatin Susp) 5 ml QID PO Last administered on 09/07/16 09:01; Admin Dose 5 ML; Start 09/05/16 at 13:00 OLLIE YUEN MD Sep 07, 2016 09:51
--- NOTE | 2016-09-07 12:11 | CONS ---
Date/Time of Note Date/Time of Note DATE: 09/07/16 TIME: 12:10 Assessment/Plan Assessment/Plan Additional Assessment/Plan OBJECTIVE: VITALS: Stable. ABDOMEN: Benign. LUNGS: Clear. EXTREMITIES: No edema except for a palmar erythema. CENTRAL NERVOUS SYSTEM: Grossly within normal limits. IMPRESSION: 1. Lower extremity cellulitis which is responding to antibiotic and steroid. 2. Chronic pain syndrome. 3. Gastroparesis. 4. Status post gastric bypass surgery. 5. High CEA level, high CA 19 9the etiology is unclear at this point. CAT scan is negative. EGD and colonoscopy both negative. Bone scan also was negative. 6. Depression. 7. Hypothyroidism. PLAN: At this point is to continue PPI and Reglan. Continue antibiotic as per ID. Patient's CEA needs to be monitored periodically. Patient's problem might be absorption of the nutrient. We will start her on thiamine Consultation Date/Type/Reason Admit Date/Time Aug 28, 2016 at 22:59 Type of Consultation: ID 24 HR Interval Summary Free Text/Dictation Patient is eating 100% despite that she is unable to gain weight and pre- albumin is also low Exam/Review of Systems Vital Signs Vitals Vital Signs Date Time Temp Pulse Resp B/P Pulse Ox O2 Delivery O2 Flow Rate FiO2 09/07/16 08:20 98.8 100 18 115/75 95 09/06/16 20:00 Room Air 09/03/16 13:27 2.0 Intake and Output 09/06/16 09/06/16 09/07/16 15:00 23:00 07:00 Intake Total 2480 ml 600 ml Output Total 2900 ml 450 ml Balance -420 ml 150 ml Exam Constitutional: alert, oriented, well developed Psych: nl mood/affect, no complaints Head: atraumatic, normocephalic Eyes: EOMI, PERRL, nl conjunctiva, nl lids, nl sclera ENMT: nl external ears & nose, nl lips & teeth, nl nasal mucosa & septum Neck: non-tender, supple Respiratory: clear to auscultation, normal air movement Cardiovascular: nl pulses, regular rate and rhythm Gastrointestinal: nl liver, spleen, non-tender, soft Musculoskeletal: nl extremities to inspection, nl gait and stance Extremities: normal pulses 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, nl mental status, nl speech, nl strength Skin: nl turgor, No rash or lesions Lymph: nl lymph nodes Results Result Diagram: 09/03/1615 09/03/16 0615 Results 24 hrs Laboratory Tests Test 09/07/16 11:47 Lab Scanned Report REFERENCE LAB Medications Medications Current Medications Famotidine (Pepcid) 20 mg DAILY PO Last administered on 09/07/16 09:00; Admin Dose 20 MG; Start 08/29/16 at 09:00 Thiamine HCl (Vitamin B1) 100 mg DAILY PO Last administered on 09/07/16 09:00 ; Admin Dose 100 MG; Start 08/29/16 at 09:00 Gabapentin (Neurontin) 300 mg TID PO Last administered on 09/07/16 09:00; Admin Dose 300 MG; Start 08/29/16 at 09:00 Levothyroxine Sodium (Synthroid) 150 mcg DAILY@06 PO Last administered on 06:36; Admin Dose 150 MCG; Start 08/29/16 at 06:00 Folic Acid (Folic Acid) 1 mg DAILY PO Last administered on 09/07/16 09:01; Admin Dose 1 MG; Start 08/29/16 at 09:00 Montelukast Sodium (Singulair) 10 mg HS PO Last administered on 09/06/16 20:57 ; Admin Dose 10 MG; Start 08/29/16 at 21:00 Multivitamins/ Minerals (Theragran-M) 1 tab DAILY PO Last administered on 09:00; Admin Dose 1 TAB; Start 08/29/16 at 09:00 Ondansetron HCl (Zofran Inj) 4 mg Q6H PRN IV NAUSEA AND/OR VOMITING; Start 08/29 at 00:30 Heparin Sodium (Porcine) (Heparin (5000 Units/0.5 ml)) 5,000 unit BID SC Last administered on 09/07/16 09:10; Admin Dose 5,000 UNIT; Start 08/29/16 at 09:00 Trazodone HCl (Desyrel) 50 mg HS PO Last administered on 09/05/16 23:52; Admin Dose 50 MG; Start 08/29/16 at 21:00 Venlafaxine HCl (Effexor) 150 mg DAILY PO Last administered on 09/07/16 08:59 ; Admin Dose 150 MG; Start 08/29/16 at 09:00 Venlafaxine HCl (Effexor) 75 mg HS PO Last administered on 09/06/16 20:57; Admin Dose 75 MG; Start 08/29/16 at 21:00 Prenat Multivit/ [place]/Iron/Folic Ac ( S) 1 tab DAILY PO Last administered on 09/07/16 09:01; Admin Dose 1 TAB; Start 08/29/16 at 14:30 Lactobacillus Acidophilus/ Rhamnosus (Culturelle) 1 cap BID PO Last administered on 09/07/16 09:01; Admin Dose 1 CAP; Start 08/29/16 at 14:30 Morphine Sulfate (Ms Contin (Er)) 30 mg BID PO Last administered on 09/07/16 09:00; Admin Dose 30 MG; Start 08/29/16 at 21:00 Morphine Sulfate (morphine) 3 mg Q3H PRN IV BREAKTHROUGH PAIN Last administered on 09/07/16 11:12; Admin Dose 3 MG; Start 08/29/16 at 18:00 Fluticasone Propionate (Flonase 0.05% Nasal) 1 spray DAILY NASAL Last administered on 09/07/16 08:58; Admin Dose 1 SPRAY; Start 08/30/16 at 13:30 Mupirocin (Bactroban) 1 applic BID TOP Last administered on 09/07/16 08:58; Admin Dose 1 APPLIC; Start 08/31/16 at 12:30 Tolterodine Tartrate (Detrol La) 2 mg QHS PO Last administered on 09/06/16 20: 57; Admin Dose 2 MG; Start 08/31/16 at 21:00 IV Flush (NS 10 ml) 10 ml PRN PRN IV FLUSH LINE; Start 09/01/16 at 19:30 Triamcinolone Acetonide (Kenalog 0.025% Lotion) APPLY TO palms of hand BID TOP Last administered on 09/07/16 09:02; Admin Dose 1 APPLIC; Start 09/02/16 at 14: 30 Lactulose (Enulose) 20 gm Q8 PO Last administered on 09/07/16 06:36; Admin Dose 20 GM; Start 09/02/16 at 17:30 Metoclopramide HCl (Reglan) 10 mg Q6 IV Last administered on 09/07/16 11:12; Admin Dose 10 MG; Start 09/03/16 at 18:00 Furosemide (Lasix) 40 mg DAILY@06 PO Last administered on 09/07/16 09:00; Admin Dose 40 MG; Start 09/05/16 at 06:00 Prednisone (Prednisone) 50 mg DAILY PO Last administered on 09/07/16 09:01; Admin Dose 50 MG; Start 09/06/16 at 09:00 Nystatin (Nystatin Susp) 5 ml QID PO Last administered on 09/07/16 09:01; Admin Dose 5 ML; Start 09/05/16 at 13:00 Acetaminophen (Tylenol Tab) 325 mg Q4H PRN PO PAIN AND OR ELEVATED TEMP; Start 09/07/16 at 10:00 AMBER FERRO MD Sep 07, 2016 12:11
[2016-09-07 20:00] VITALS: BP 135/97; RESP 20
[2016-09-07] MEDS: MONTELUKAST 10 MG TAB PO SCH (20:19)
[2016-09-07] MEDS: TOLTERODINE (SR) 2 MG CAP PO SCH (20:19)
[2016-09-08] MEDS: morphine 4 MG/ML VIAL IV PRN ×7 (02:49→21:19)
[2016-09-08] MEDS: FUROSEMIDE 40 MG TAB PO SCH ×2 (06:00→09:09)
[2016-09-08] MEDS: LEVOTHYROXINE 150 MCG TAB PO SCH (06:04)
[2016-09-08] MEDS: LACTULOSE 30ML CUP PO SCH ×3 (06:04→22:57)
[2016-09-08] MEDS: METOCLOPRAMIDE 10 MG INJ IV SCH ×3 (06:04→18:12)
[2016-09-08 08:12] VITALS: BP 110/76; RESP 18
[2016-09-08] MEDS: THIAMINE 100 MG TAB PO SCH (09:08)
[2016-09-08] MEDS: MULTIVIT/MIN/FOLATE/IRON/PREN TAB PO SCH (09:08)
[2016-09-08] MEDS: GABAPENTIN 300 MG CAP PO SCH ×3 (09:09→20:30)
[2016-09-08] MEDS: VENLAFAXINE 75 MG TABLET PO SCH ×2 (09:09→20:30)
[2016-09-08] MEDS: NYSTATIN SUSP 5 ML CUP PO SCH ×4 (09:09→20:30)
[2016-09-08] MEDS: MUPIROCIN 2% 22 GM OINT TOP SCH ×2 (09:09→20:31)
[2016-09-08] MEDS: LACTOBACILLUS RHAMNOSUS CAP PO SCH ×2 (09:09→20:30)
[2016-09-08] MEDS: predniSONE 50 MG TAB PO SCH (09:09)
[2016-09-08] MEDS: MULTIVITAMINS/MINERALS TAB PO SCH (09:09)
[2016-09-08] MEDS: FOLIC ACID 1 MG TAB PO SCH (09:09)
[2016-09-08] MEDS: FAMOTIDINE 20 MG TAB PO SCH (09:09)
[2016-09-08] MEDS: FLUTICASONE 0.05% 16 GM NAS SPRAY NASAL SCH (09:10)
[2016-09-08] MEDS: TRIAMCINOLONE ACET 0.025% 60 ML LOT TOP SCH ×2 (09:10→20:32)
[2016-09-08] MEDS: HEPARIN 5,000 UNIT/0.5 ML VIAL SC SCH (09:28)
[2016-09-08] MEDS: morphine (ER) 30 MG TAB PO SCH ×2 (09:53→20:30)
--- NOTE | 2016-09-08 13:15 | PN ---
Date/Time of Note Date/Time of Note DATE: 09/08/16 TIME: 13:14 Assessment/Plan VTE Prophylaxis VTE Prophylaxis Intervention: SCD's Lines/Catheters IV Catheter Type (from Nrsg): PICC Line Central line still needed: No Urinary Cath still in place: No Assessment/Plan Assessment/Plan 46-year-old female with history of chronic pain syndrome, prior alcohol use, pain and opioid dependence, cirrhosis, hypothyroidism, history of gastric bypass surgery and depression, presented with weakness and bilateral hands and lower extremity rash #rash: suspect pemphigus; s/p cellulitis treatment -cont steroids (topical and systemic) for hands and feet-->CONVERTED IV STEROIDS TO PO high dose steroids started .. Consider dose reduction 7 days after peeling significantly improves to prednisone 0.75 mg/kg (currently on 1 mg/kg) defer for now given ongoing hand peeling WILL NEED DERM F/U AT DISCHARGE #LE edema: resolved -cont PO lasix #protein calorie malnutrition: etio unclear. possibly 2/2 insufficient food access v consequence of her previous bypass surgery v other -work up ongoing. 24 urine collection ordered by other provider completed 09.06 #elevated tumor markers: etio and clinical significanc unclear. CT 02/07 without pancreatic/hepatic mass CT chest and EGD 09.03 also unremarkable heme/onc following, appreciated assistance-->no evidence of malignancy #chronic pain: palliative/pain management on consult, appreciate assistance #depression: cont home meds #hypothyroid: cont synthroid dispo pending discharge arrangements Subjective 24 Hr Interval Summary Free Text/Dictation Pt requesting DVT prophx be changed to daily Exam/Review of Systems Vital Signs Vitals Vital Signs Date Time Temp Pulse Resp B/P Pulse Ox O2 Delivery O2 Flow Rate FiO2 09/08/16 08:12 98.0 95 18 110/76 95 09/06/16 20:00 Room Air Intake and Output 09/07/16 09/07/16 09/08/16 15:00 23:00 07:00 Intake Total 1360 ml 800 ml Output Total 800 ml Balance 1360 ml 0 ml Exam nad, sitting up in bed, +temporal wasting no mrg lungs clear abd soft palmar peeling stable Medications Medications Current Medications Famotidine (Pepcid) 20 mg DAILY PO Last administered on 09/08/16t 09:09; Admin Dose 20 MG; Start 08/29/16 at 09:00 Thiamine HCl (Vitamin B1) 100 mg DAILY PO Last administered on 09/08/16 09:08 ; Admin Dose 100 MG; Start 08/29/16 at 09:00 Gabapentin (Neurontin) 300 mg TID PO Last administered on 09/08/16 12:17; Admin Dose 300 MG; Start 08/29/16 at 09:00 Levothyroxine Sodium (Synthroid) 150 mcg DAILY@06 PO Last administered on 06:04; Admin Dose 150 MCG; Start 08/29/16 at 06:00 Folic Acid (Folic Acid) 1 mg DAILY PO Last administered on 09/08/16 09:09; Admin Dose 1 MG; Start 08/29/16 at 09:00 Montelukast Sodium (Singulair) 10 mg HS PO Last administered on 09/07/16 20:19 ; Admin Dose 10 MG; Start 08/29/16 at 21:00 Multivitamins/ Minerals (Theragran-M) 1 tab DAILY PO Last administered on 09:09; Admin Dose 1 TAB; Start 08/29/16 at 09:00 Ondansetron HCl (Zofran Inj) 4 mg Q6H PRN IV NAUSEA AND/OR VOMITING; Start 08/29 at 00:30 Trazodone HCl (Desyrel) 50 mg HS PO Last administered on 09/07/16 21:06; Admin Dose 50 MG; Start 08/29/16 at 21:00 Venlafaxine HCl (Effexor) 150 mg DAILY PO Last administered on 09/08/16 09:09 ; Admin Dose 150 MG; Start 08/29/16 at 09:00 Venlafaxine HCl (Effexor) 75 mg HS PO Last administered on 09/07/16 20:19; Admin Dose 75 MG; Start 08/29/16 at 21:00 Prenat Multivit/ [place]/Iron/Folic Ac ( S) 1 tab DAILY PO Last administered on 09/08/16 09:08; Admin Dose 1 TAB; Start 08/29/16 at 14:30 Lactobacillus Acidophilus/ Rhamnosus (Culturelle) 1 cap BID PO Last administered on 09/08/16 09:09; Admin Dose 1 CAP; Start 08/29/16 at 14:30 Morphine Sulfate (Ms Contin (Er)) 30 mg BID PO Last administered on 09/08/16 09:53; Admin Dose 30 MG; Start 08/29/16 at 21:00 Morphine Sulfate (morphine) 3 mg Q3H PRN IV BREAKTHROUGH PAIN Last administered on 09/08/16 12:17; Admin Dose 3 MG; Start 08/29/16 at 18:00 Fluticasone Propionate (Flonase 0.05% Nasal) 1 spray DAILY NASAL Last administered on 09/08/16 09:10; Admin Dose 1 SPRAY; Start 08/30/16 at 13:30 Mupirocin (Bactroban) 1 applic BID TOP Last administered on 09/08/16 09:09; Admin Dose 1 APPLIC; Start 08/31/16 at 12:30 Tolterodine Tartrate (Detrol La) 2 mg QHS PO Last administered on 09/07/16 20: 19; Admin Dose 2 MG; Start 08/31/16 at 21:00 IV Flush (NS 10 ml) 10 ml PRN PRN IV FLUSH LINE; Start 09/01/16 at 19:30 Triamcinolone Acetonide (Kenalog 0.025% Lotion) APPLY TO palms of hand BID TOP Last administered on 09/08/16 09:10; Admin Dose 1 APPLIC; Start 09/02/16 at 14: 30 Lactulose (Enulose) 20 gm Q8 PO Last administered on 09/08/16 06:04; Admin Dose 20 GM; Start 09/02/16 at 17:30 Metoclopramide HCl (Reglan) 10 mg Q6 IV Last administered on 09/08/16 12:17; Admin Dose 10 MG; Start 09/03/16 at 18:00 Furosemide (Lasix) 40 mg DAILY@06 PO Last administered on 09/08/16 09:09; Admin Dose 40 MG; Start 09/05/16 at 06:00 Prednisone (Prednisone) 50 mg DAILY PO Last administered on 09/08/16 09:09; Admin Dose 50 MG; Start 09/06/16 at 09:00 Nystatin (Nystatin Susp) 5 ml QID PO Last administered on 09/08/16 12:17; Admin Dose 5 ML; Start 09/05/16 at 13:00 Acetaminophen (Tylenol Tab) 325 mg Q4H PRN PO PAIN AND OR ELEVATED TEMP; Start 09/07/16 at 10:00 OLLIE YUEN MD Sep 08, 2016 13:15
[2016-09-08] MEDS: ACETAMINOPHEN 325 MG TAB PO PRN (15:19)
[2016-09-08 20:00] VITALS: BP 108/74; RESP 20
[2016-09-08] MEDS: MONTELUKAST 10 MG TAB PO SCH (20:30)
[2016-09-08] MEDS: TOLTERODINE (SR) 2 MG CAP PO SCH (20:31)
[2016-09-08] MEDS: traZODone 50 MG TAB PO SCH (22:57)
[2016-09-09] MEDS: morphine 4 MG/ML VIAL IV PRN ×7 (00:30→23:19)
[2016-09-09] MEDS: METOCLOPRAMIDE 10 MG INJ IV SCH ×5 (00:30→23:18)
[2016-09-09] MEDS: ACETAMINOPHEN 325 MG TAB PO PRN (00:31)
[2016-09-09] MEDS: LACTULOSE 30ML CUP PO SCH ×3 (06:10→21:28)
[2016-09-09] MEDS: LEVOTHYROXINE 150 MCG TAB PO SCH (06:11)
[2016-09-09 07:27] VITALS: BP 111/75; RESP 18
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
[2016-09-09] MEDS: FAMOTIDINE 20 MG TAB PO SCH (09:24)
[2016-09-09] MEDS: NYSTATIN SUSP 5 ML CUP PO SCH ×4 (09:24→21:26)
[2016-09-09] MEDS: GABAPENTIN 300 MG CAP PO SCH ×3 (09:24→21:26)
[2016-09-09] MEDS: FOLIC ACID 1 MG TAB PO SCH (09:24)
[2016-09-09] MEDS: LACTOBACILLUS RHAMNOSUS CAP PO SCH ×2 (09:24→21:26)
[2016-09-09] MEDS: MULTIVIT/MIN/FOLATE/IRON/PREN TAB PO SCH (09:25)
[2016-09-09] MEDS: FLUTICASONE 0.05% 16 GM NAS SPRAY NASAL SCH (09:25)
[2016-09-09] MEDS: FUROSEMIDE 40 MG TAB PO SCH (09:25)
[2016-09-09] MEDS: MUPIROCIN 2% 22 GM OINT TOP SCH ×2 (09:25→21:27)
[2016-09-09] MEDS: THIAMINE 100 MG TAB PO SCH (09:26)
[2016-09-09] MEDS: MULTIVITAMINS/MINERALS TAB PO SCH (09:26)
[2016-09-09] MEDS: morphine (ER) 30 MG TAB PO SCH ×2 (09:26→21:26)
[2016-09-09] MEDS: predniSONE 50 MG TAB PO SCH (09:26)
[2016-09-09] MEDS: TRIAMCINOLONE ACET 0.025% 60 ML LOT TOP SCH ×2 (09:27→21:31)
[2016-09-09] MEDS: VENLAFAXINE 75 MG TABLET PO SCH ×2 (09:38→21:26)
[2016-09-09] MEDS: ENOXAPARIN 40 MG/0.4 ML SYG SC SCH (10:14)
--- NOTE | 2016-09-09 11:50 | PN ---
Date/Time of Note Date/Time of Note DATE: 09/09/16 TIME: 11:49 Assessment/Plan VTE Prophylaxis VTE Prophylaxis Intervention: SCD's Lines/Catheters IV Catheter Type (from Nrsg): PICC Line Central line still needed: No Urinary Cath still in place: No Assessment/Plan Assessment/Plan 46-year-old female with history of chronic pain syndrome, prior alcohol use, pain and opioid dependence, cirrhosis, hypothyroidism, history of gastric bypass surgery and depression, presented with weakness and bilateral hands and lower extremity rash #sweating: check TSH, HIV #rash: suspect pemphigus; s/p cellulitis treatment -cont steroids (topical and systemic) for hands and feet-->CONVERTED IV STEROIDS TO PO high dose steroids started .. Consider dose reduction 7 days after peeling significantly improves to prednisone 0.75 mg/kg (currently on 1 mg/kg) defer for now given ongoing hand peeling WILL NEED DERM F/U AT DISCHARGE #LE edema: resolved -cont PO lasix #protein calorie malnutrition: etio unclear. possibly 2/2 insufficient food access v consequence of her previous bypass surgery v other -work up ongoing. 24 urine collection ordered by other provider completed . #elevated tumor markers: etio and clinical significanc unclear. CT 02/07 without pancreatic/hepatic mass CT chest and EGD 09.03 also unremarkable heme/onc following, appreciated assistance-->no evidence of malignancy #chronic pain: palliative/pain management on consult, appreciate assistance #depression: cont home meds #hypothyroid: cont synthroid dispo pending discharge arrangements Subjective 24 Hr Interval Summary Free Text/Dictation nad, reports occ nighttime sweating Exam/Review of Systems Vital Signs Vitals Vital Signs Date Time Temp Pulse Resp B/P Pulse Ox O2 Delivery O2 Flow Rate FiO2 09/09/16 07:27 98.2 101 18 111/75 99 09/06/16 20:00 Room Air Intake and Output 09/08/16 09/08/16 09/09/16 15:00 23:00 07:00 Intake Total 1440 ml 1000 ml Output Total 1100 ml Balance 1440 ml -100 ml Exam nad, temporal wasting no mrg lungs clear abd soft +mild palmar peeling Results Results 24 hrs Laboratory Tests Test 09/09/16 10:50 Ammonia 19 Medications Medications Current Medications Famotidine (Pepcid) 20 mg DAILY PO Last administered on 09/09/16 09:24; Admin Dose 20 MG; Start 08/29/16 at 09:00 Thiamine HCl (Vitamin B1) 100 mg DAILY PO Last administered on 09/09/16 09:26 ; Admin Dose 100 MG; Start 08/29/16 at 09:00 Gabapentin (Neurontin) 300 mg TID PO Last administered on 09/09/16 09:24; Admin Dose 300 MG; Start 08/29/16 at 09:00 Levothyroxine Sodium (Synthroid) 150 mcg DAILY@06 PO Last administered on 06:11; Admin Dose 150 MCG; Start 08/29/16 at 06:00 Folic Acid (Folic Acid) 1 mg DAILY PO Last administered on 09/09/16 09:24; Admin Dose 1 MG; Start 08/29/16 at 09:00 Montelukast Sodium (Singulair) 10 mg HS PO Last administered on 09/08/16 20:30 ; Admin Dose 10 MG; Start 08/29/16 at 21:00 Multivitamins/ Minerals (Theragran-M) 1 tab DAILY PO Last administered on 09:26; Admin Dose 1 TAB; Start 08/29/16 at 09:00 Ondansetron HCl (Zofran Inj) 4 mg Q6H PRN IV NAUSEA AND/OR VOMITING; Start 08/29 at 00:30 Trazodone HCl (Desyrel) 50 mg HS PO Last administered on 09/08/16 22:57; Admin Dose 50 MG; Start 08/29/16 at 21:00 Venlafaxine HCl (Effexor) 150 mg DAILY PO Last administered on 09/09/16 09:38 ; Admin Dose 150 MG; Start 08/29/16 at 09:00 Venlafaxine HCl (Effexor) 75 mg HS PO Last administered on 09/08/16 20:30; Admin Dose 75 MG; Start 08/29/16 at 21:00 Prenat Multivit/ [place]ermon/Iron/Folic Ac ( S) 1 tab DAILY PO Last administered on 09/09/16 09:25; Admin Dose 1 TAB; Start 08/29/16 at 14:30 Lactobacillus Acidophilus/ Rhamnosus (Culturelle) 1 cap BID PO Last administered on 09/09/16 09:24; Admin Dose 1 CAP; Start 08/29/16 at 14:30 Morphine Sulfate (Ms Contin (Er)) 30 mg BID PO Last administered on 09/09/16 09:26; Admin Dose 30 MG; Start 08/29/16 at 21:00 Morphine Sulfate (morphine) 3 mg Q3H PRN IV BREAKTHROUGH PAIN Last administered on 09/09/16 09:30; Admin Dose 3 MG; Start 08/29/16 at 18:00 Fluticasone Propionate (Flonase 0.05% Nasal) 1 spray DAILY NASAL Last administered on 09/09/16 09:25; Admin Dose 1 SPRAY; Start 08/30/16 at 13:30 Mupirocin (Bactroban) 1 applic BID TOP Last administered on 09/09/16 09:25; Admin Dose 1 APPLIC; Start 08/31/16 at 12:30 Tolterodine Tartrate (Detrol La) 2 mg QHS PO Last administered on 09/08/16 20: 31; Admin Dose 2 MG; Start 08/31/16 at 21:00 IV Flush (NS 10 ml) 10 ml PRN PRN IV FLUSH LINE; Start 09/01/16 at 19:30 Triamcinolone Acetonide (Kenalog 0.025% Lotion) APPLY TO palms of hand BID TOP Last administered on 09/09/16 09:27; Admin Dose 1 APPLIC; Start 09/02/16 at 14: 30 Lactulose (Enulose) 20 gm Q8 PO Last administered on 09/09/16 06:10; Admin Dose 20 GM; Start 09/02/16 at 17:30 Metoclopramide HCl (Reglan) 10 mg Q6 IV Last administered on 09/09/16 06:10; Admin Dose 10 MG; Start 09/03/16 at 18:00 Furosemide (Lasix) 40 mg DAILY@06 PO Last administered on 09/09/16 09:25; Admin Dose 40 MG; Start 09/05/16 at 06:00 Prednisone (Prednisone) 50 mg DAILY PO Last administered on 09/09/16 09:26; Admin Dose 50 MG; Start 09/06/16 at 09:00 Nystatin (Nystatin Susp) 5 ml QID PO Last administered on 09/09/16 09:24; Admin Dose 5 ML; Start 09/05/16 at 13:00 Acetaminophen (Tylenol Tab) 325 mg Q4H PRN PO PAIN AND OR ELEVATED TEMP Last administered on 09/09/16 00:31; Admin Dose 325 MG; Start 09/07/16 at 10:00 Enoxaparin Sodium (Lovenox) 40 mg DAILY SC Last administered on 09/09/16 10:14 ; Admin Dose 40 MG; Start 09/09/16 at 09:00 OLLIE YUEN MD Sep 09, 2016 11:50
[2016-09-09] MEDS: HYDROPHILIC BASE 454 GM OINT TOP SCH ×2 (13:00→21:00)
[2016-09-09] MEDS: MINERAL OIL 240 ML LOT TOP SCH ×2 (15:00→21:00)
--- NOTE | 2016-09-09 19:02 | CONS ---
Date/Time of Note Date/Time of Note DATE: 09/09/16 TIME: 19:01 Assessment/Plan Assessment/Plan Additional Assessment/Plan IMPRESSION: 1. Lower extremity cellulitis which is responding to antibiotic and steroid. 2. Chronic pain syndrome. 3. Gastroparesis. 4. Status post gastric bypass surgery. 5. High CEA level, high CA 19 9the etiology is unclear at this point. CAT scan is negative. EGD and colonoscopy both negative. Bone scan also was negative. 6. Depression. 7. Hypothyroidism. PLAN: At this point is to continue PPI and Reglan. Continue antibiotic as per ID. Patient's CEA needs to be monitored periodically. Patient's problem might be absorption of the nutrient. continue thiamine Consultation Date/Type/Reason Admit Date/Time Aug 28, 2016 at 22:59 Type of Consultation: ID 24 HR Interval Summary Constitutional: improved Exam/Review of Systems Vital Signs Vitals Vital Signs Date Time Temp Pulse Resp B/P Pulse Ox O2 Delivery O2 Flow Rate FiO2 09/09/16 07:27 98.2 101 18 111/75 99 09/06/16 20:00 Room Air Intake and Output 09/08/16 09/08/16 09/09/16 15:00 23:00 07:00 Intake Total 1440 ml 1000 ml Output Total 1100 ml Balance 1440 ml -100 ml Exam Constitutional: alert, oriented, well developed Psych: nl mood/affect, no complaints Head: atraumatic, normocephalic Eyes: EOMI, PERRL, nl conjunctiva, nl lids, nl sclera ENMT: nl external ears & nose, nl lips & teeth, nl nasal mucosa & septum Neck: non-tender, supple Respiratory: clear to auscultation, normal air movement Cardiovascular: nl pulses, regular rate and rhythm Gastrointestinal: nl liver, spleen, non-tender, soft Musculoskeletal: nl extremities to inspection, nl gait and stance Extremities: normal pulses Neurological: 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-XII 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, nl mental status, nl speech, nl strength Skin: nl turgor, No rash or lesions Lymph: nl lymph nodes Results Results 24 hrs Laboratory Tests Test 09/09/16 10:50 09/09/16 11:58 09/09/16 11:59 Ammonia 19 Lab Scanned Report REFERENCE LAB REFERENCE LAB Medications Medications Current Medications Famotidine (Pepcid) 20 mg DAILY PO Last administered on 09/09/16 09:24; Admin Dose 20 MG; Start 08/29/16 at 09:00 Thiamine HCl (Vitamin B1) 100 mg DAILY PO Last administered on 09/09/16 09:26 ; Admin Dose 100 MG; Start 08/29/16 at 09:00 Gabapentin (Neurontin) 300 mg TID PO Last administered on 09/09/16 12:37; Admin Dose 300 MG; Start 08/29/16 at 09:00 Levothyroxine Sodium (Synthroid) 150 mcg DAILY@06 PO Last administered on 06:11; Admin Dose 150 MCG; Start 08/29/16 at 06:00 Folic Acid (Folic Acid) 1 mg DAILY PO Last administered on 09/09/16 09:24; Admin Dose 1 MG; Start 08/29/16 at 09:00 Montelukast Sodium (Singulair) 10 mg HS PO Last administered on 09/08/16 20:30 ; Admin Dose 10 MG; Start 08/29/16 at 21:00 Multivitamins/ Minerals (Theragran-M) 1 tab DAILY PO Last administered on 09:26; Admin Dose 1 TAB; Start 08/29/16 at 09:00 Ondansetron HCl (Zofran Inj) 4 mg Q6H PRN IV NAUSEA AND/OR VOMITING; Start 08/29 at 00:30 Trazodone HCl (Desyrel) 50 mg HS PO Last administered on 09/08/16 22:57; Admin Dose 50 MG; Start 08/29/16 at 21:00 Venlafaxine HCl (Effexor) 150 mg DAILY PO Last administered on 09/09/16 09:38 ; Admin Dose 150 MG; Start 08/29/16 at 09:00 Venlafaxine HCl (Effexor) 75 mg HS PO Last administered on 09/08/16 20:30; Admin Dose 75 MG; Start 08/29/16 at 21:00 Prenat Multivit/ Reed/Iron/Folic Ac ( S) 1 tab DAILY PO Last administered on 09/09/16 09:25; Admin Dose 1 TAB; Start 08/29/16 at 14:30 Lactobacillus Acidophilus/ Rhamnosus (Culturelle) 1 cap BID PO Last administered on 09/09/16 09:24; Admin Dose 1 CAP; Start 08/29/16 at 14:30 Morphine Sulfate (Ms Contin (Er)) 30 mg BID PO Last administered on 09/09/16 09:26; Admin Dose 30 MG; Start 08/29/16 at 21:00 Morphine Sulfate (morphine) 3 mg Q3H PRN IV BREAKTHROUGH PAIN Last administered on 09/09/16 16:40; Admin Dose 3 MG; Start 08/29/16 at 18:00 Fluticasone Propionate (Flonase 0.05% Nasal) 1 spray DAILY NASAL Last administered on 09/09/16 09:25; Admin Dose 1 SPRAY; Start 08/30/16 at 13:30 Mupirocin (Bactroban) 1 applic BID TOP Last administered on 09/09/16 09:25; Admin Dose 1 APPLIC; Start 08/31/16 at 12:30 Tolterodine Tartrate (Detrol La) 2 mg QHS PO Last administered on 09/08/16 20: 31; Admin Dose 2 MG; Start 08/31/16 at 21:00 IV Flush (NS 10 ml) 10 ml PRN PRN IV FLUSH LINE; Start 09/01/16 at 19:30 Triamcinolone Acetonide (Kenalog 0.025% Lotion) APPLY TO palms of hand BID TOP Last administered on 09/09/16 09:27; Admin Dose 1 APPLIC; Start 09/02/16 at 14: 30 Lactulose (Enulose) 20 gm Q8 PO Last administered on 09/09/16 14:53; Admin Dose 20 GM; Start 09/02/16 at 17:30 Metoclopramide HCl (Reglan) 10 mg Q6 IV Last administered on 09/09/16 18:37; Admin Dose 10 MG; Start 09/03/16 at 18:00 Furosemide (Lasix) 40 mg DAILY@06 PO Last administered on 09/09/16 09:25; Admin Dose 40 MG; Start 09/05/16 at 06:00 Prednisone (Prednisone) 50 mg DAILY PO Last administered on 09/09/16 09:26; Admin Dose 50 MG; Start 09/06/16 at 09:00 Nystatin (Nystatin Susp) 5 ml QID PO Last administered on 09/09/16 16:39; Admin Dose 5 ML; Start 09/05/16 at 13:00 Acetaminophen (Tylenol Tab) 325 mg Q4H PRN PO PAIN AND OR ELEVATED TEMP Last administered on 09/09/16 00:31; Admin Dose 325 MG; Start 09/07/16 at 10:00 Enoxaparin Sodium (Lovenox) 40 mg DAILY SC Last administered on 09/09/16 10:14 ; Admin Dose 40 MG; Start 09/09/16 at 09:00 Mineral Oil (Eucerin Lotion) 1 applic BID TOP ; Start 09/09/16 at 15:00 Hydrophilic Base (Aquaphor Oint 454 Gm) 1 applic BID TOP ; Start 09/09/16 at 13: 00 AMBER FERRO MD Sep 09, 2016 19:02
[2016-09-09 20:21] VITALS: BP 118/76; RESP 18
[2016-09-09] MEDS: traZODone 50 MG TAB PO SCH (21:00)
--- NOTE | 2016-09-09 21:12 | CONS ---
DATE OF ADMISSION: 08/28/2016 DATE OF CONSULTATION: HISTORY OF PRESENT ILLNESS: The patient is a 46-year-old female with a history of gastric bypass villatoro mario, came with a rash both in the lower extremities and upper extremities and was started on stero id and antibiotic. Rash improved, but she continues to have palmar erythema. The patient has been losing weight despite good appetite and albumin remains low. OBJECTIVE: VITAL SIGNS: Stable. ABDOMEN: Benign. LUNGS: Clear. EXTREMITIES: No edema. CENTRAL NERVOUS SYSTEM: Grossly within normal limits. LABORATORY DATA: Hematocrit is stable, which is at 26.7. IMPRESSION: 1. Anemia. 2. Status post gastric bypass surgery. 3. 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 4. Cachexia, most probably related to poor absorption of nutrients. 5. High CEA around 34. 6. Palmar erythema. PLAN: Continue present care. Continue thiamine. Refrain from alcohol altogether and will repeat E GD as an outpatient, examining the gastric pouch and both the limbs of gastric bypass surgery. Dictated By: AMBER NELSON/PAUL Conf#: [id number] DID#: [id number] CC: TOSIN ENCARNACION;*EndCC*
[2016-09-09] MEDS: MONTELUKAST 10 MG TAB PO SCH (21:26)
[2016-09-09] MEDS: TOLTERODINE (SR) 2 MG CAP PO SCH (21:33)
[2016-09-10] MEDS: morphine 4 MG/ML VIAL IV PRN ×5 (05:16→20:51)
[2016-09-10] MEDS: LEVOTHYROXINE 150 MCG TAB PO SCH (05:16)
[2016-09-10] MEDS: LACTULOSE 30ML CUP PO SCH ×3 (05:16→21:41)
[2016-09-10] MEDS: METOCLOPRAMIDE 10 MG INJ IV SCH ×3 (05:16→17:43)
[2016-09-10 06:52] LABS: THYROID STIMULATING HORMONE 0.106 MIU/L (0.465-4.680)
[2016-09-10 07:22] VITALS: BP 103/62; RESP 18
[2016-09-10 07:53] LABS: MISC REFERRAL TEST SEE SCANNED REPORT.
--- NOTE | 2016-09-10 08:03 | PN ---
DATE: 09/10/2016 SUBJECTIVE: The patient states that she is feeling well. She has no complaints at this time. She does feel that she has had some abdominal distention and some facial swelling. She is having normal bowel movements and no nausea or vomiting. OBJECTIVE GENERAL: The patient is a well-developed, chronically ill-appearing female who is in no acute distr ess. VITAL SIGNS: Temperature 98.3, pulse 104, respirations 18, blood pressure 103/62, pulse oximetry 94 % on room air. SKIN: Pale. No ecchymosis, no petechiae or rashes. There is minimal palmar or plantar erythema at this time. No further desquamation. No vesicle or bullous formation. HEENT: Mild alopecia. No mucosal lesions. No scleral icterus. NECK: Supple, no jugular venous distention or thyroid enlargement. CHEST: Clear to auscultation and percussion. No rhonchi, wheezes, rales or rubs. NODES: No palpable lymphadenopathy in lymph node bearing area. HEART: Sinus tachycardia. No S3, S4 or murmurs. ABDOMEN: Distended but soft. Bowel sounds are active. There is no ascites. EXTREMITIES: No clubbing, no edema or cyanosis. No palpable cords or Homans sign is noted. There is no further desquamation of the palmar aspects of hands or plantar aspect of the feet. No vesicle or bullous formation. LABORATORIES: The total plasma porphyrin is 3.4, which is within normal range. Still pending is th e urine porphyrin studies. All of vitamin assays which were obtained are normal as well including v itamin B2 and B6. ASSESSMENT: 1. 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 2. Malnutrition. 3. Elevated tumor markers without evidence of malignancy. 4. Chronic pain syndrome. At this time, I have no further recommendations. PLAN: Still awaiting urine results to rule out the possibility porphyria cutanea tarda as reasons f or the patient's desquamating lesions on the hands and feet. I would emphasized again that elevated tumor markers do not necessarily mean a presence of malignanc y and should not be used "screening" as was done in this patient. Dictated By: JACKSON BENITEZ MD, SR/NTS Conf#: [id number] [facility]#: [id number]
[2016-09-10] MEDS: HYDROPHILIC BASE 454 GM OINT TOP SCH ×2 (09:00→21:40)
[2016-09-10] MEDS: MINERAL OIL 240 ML LOT TOP SCH ×2 (09:00→21:00)
[2016-09-10] MEDS: NYSTATIN SUSP 5 ML CUP PO SCH ×4 (09:39→21:36)
[2016-09-10] MEDS: THIAMINE 100 MG TAB PO SCH (09:39)
[2016-09-10] MEDS: VENLAFAXINE 75 MG TABLET PO SCH ×2 (09:39→21:36)
[2016-09-10] MEDS: FOLIC ACID 1 MG TAB PO SCH (09:39)
[2016-09-10] MEDS: FAMOTIDINE 20 MG TAB PO SCH (09:39)
[2016-09-10] MEDS: TRIAMCINOLONE ACET 0.025% 60 ML LOT TOP SCH ×2 (09:39→21:41)
[2016-09-10] MEDS: LACTOBACILLUS RHAMNOSUS CAP PO SCH ×2 (09:39→21:36)
[2016-09-10] MEDS: MULTIVIT/MIN/FOLATE/IRON/PREN TAB PO SCH (09:40)
[2016-09-10] MEDS: FUROSEMIDE 40 MG TAB PO SCH (09:40)
[2016-09-10] MEDS: GABAPENTIN 300 MG CAP PO SCH ×3 (09:40→21:36)
[2016-09-10] MEDS: predniSONE 50 MG TAB PO SCH (09:40)
[2016-09-10] MEDS: MULTIVITAMINS/MINERALS TAB PO SCH (09:40)
[2016-09-10] MEDS: MUPIROCIN 2% 22 GM OINT TOP SCH ×2 (09:42→21:38)
[2016-09-10] MEDS: FLUTICASONE 0.05% 16 GM NAS SPRAY NASAL SCH (09:42)
[2016-09-10] MEDS: morphine (ER) 30 MG TAB PO SCH ×2 (09:42→21:41)
[2016-09-10] MEDS: ENOXAPARIN 40 MG/0.4 ML SYG SC SCH (09:52)
[2016-09-10 20:00] VITALS: BP 118/82; RESP 18
[2016-09-10] MEDS: traZODone 50 MG TAB PO SCH (21:00)
[2016-09-10] MEDS: TOLTERODINE (SR) 2 MG CAP PO SCH (21:36)
[2016-09-10] MEDS: MONTELUKAST 10 MG TAB PO SCH (21:36)
--- NOTE | 2016-09-10 21:39 | CONS ---
Date/Time of Note Date/Time of Note DATE: 09/10/16 TIME: 21:37 Assessment/Plan Assessment/Plan Additional Assessment/Plan IMPRESSION: 1. Anemia. 2. Status post gastric bypass surgery. 3. 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 4. Cachexia, most probably related to poor absorption of nutrients. 5. High CEA around 34. 6. Palmar erythema. PLAN: Continue present care. Continue thiamine. Refrain from alcohol altogether and will repeat EGD as an outpatient, examining the gastric pouch and both the limbs of gastric bypass surgery. Consultation Date/Type/Reason Admit Date/Time Aug 28, 2016 at 22:59 Type of Consultation: ID Exam/Review of Systems Vital Signs Vitals Vital Signs Date Time Temp Pulse Resp B/P Pulse Ox O2 Delivery O2 Flow Rate FiO2 09/10/16 07:22 98.3 104 18 103/62 94 09/06/16 20:00 Room Air Intake and Output 09/09/16 09/09/16 09/10/16 15:00 23:00 07:00 Intake Total 600 ml Balance 600 ml Exam Constitutional: alert, oriented, well developed Psych: nl mood/affect, no complaints Head: atraumatic, normocephalic Eyes: EOMI, PERRL, nl conjunctiva, nl lids, nl sclera ENMT: nl external ears & nose, nl lips & teeth, nl nasal mucosa & septum Neck: non-tender, supple Respiratory: clear to auscultation, normal air movement Cardiovascular: nl pulses, regular rate and rhythm Gastrointestinal: nl liver, spleen, non-tender, soft Musculoskeletal: nl extremities to inspection, nl gait and stance Extremities: normal pulses 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, nl mental status, nl speech, nl strength Skin: nl turgor, No rash or lesions Lymph: nl lymph nodes Results Results 24 hrs Laboratory Tests Test 09/10/16 05:10 Thyroid Stimulating Hormone (TSH) 0.106 L HIV (1&2) Antibody NEGATIVE Medications Medications Current Medications Famotidine (Pepcid) 20 mg DAILY PO Last administered on 09/10/16 09:39; Admin Dose 20 MG; Start 08/29/16 at 09:00 Thiamine HCl (Vitamin B1) 100 mg DAILY PO Last administered on 09/10/16 09:39 ; Admin Dose 100 MG; Start 08/29/16 at 09:00 Gabapentin (Neurontin) 300 mg TID PO Last administered on 09/10/16 12:58; Admin Dose 300 MG; Start 08/29/16 at 09:00 Levothyroxine Sodium (Synthroid) 150 mcg DAILY@06 PO Last administered on 05:16; Admin Dose 150 MCG; Start 08/29/16 at 06:00 Folic Acid (Folic Acid) 1 mg DAILY PO Last administered on 09/10/16 09:39; Admin Dose 1 MG; Start 08/29/16 at 09:00 Montelukast Sodium (Singulair) 10 mg HS PO Last administered on 09/09/16 21:26 ; Admin Dose 10 MG; Start 08/29/16 at 21:00 Multivitamins/ Minerals (Theragran-M) 1 tab DAILY PO Last administered on 09:40; Admin Dose 1 TAB; Start 08/29/16 at 09:00 Ondansetron HCl (Zofran Inj) 4 mg Q6H PRN IV NAUSEA AND/OR VOMITING; Start 08/29 at 00:30 Trazodone HCl (Desyrel) 50 mg HS PO Last administered on 09/08/16 22:57; Admin Dose 50 MG; Start 08/29/16 at 21:00 Venlafaxine HCl (Effexor) 150 mg DAILY PO Last administered on 09/10/16 09:39 ; Admin Dose 150 MG; Start 08/29/16 at 09:00 Venlafaxine HCl (Effexor) 75 mg HS PO Last administered on 09/09/16 21:26; Admin Dose 75 MG; Start 08/29/16 at 21:00 Prenat Multivit/ [place]/Iron/Folic Ac ( S) 1 tab DAILY PO Last administered on 09/10/16 09:40; Admin Dose 1 TAB; Start 08/29/16 at 14:30 Lactobacillus Acidophilus/ Rhamnosus (Culturelle) 1 cap BID PO Last administered on 09/10/16 09:39; Admin Dose 1 CAP; Start 08/29/16 at 14:30 Morphine Sulfate (Ms Contin (Er)) 30 mg BID PO Last administered on 09/10/16 09:42; Admin Dose 30 MG; Start 08/29/16 at 21:00 Morphine Sulfate (morphine) 3 mg Q3H PRN IV BREAKTHROUGH PAIN Last administered on 09/10/16 20:51; Admin Dose 3 MG; Start 08/29/16 at 18:00 Fluticasone Propionate (Flonase 0.05% Nasal) 1 spray DAILY NASAL Last administered on 09/10/16 09:42; Admin Dose 1 SPRAY; Start 08/30/16 at 13:30 Mupirocin (Bactroban) 1 applic BID TOP Last administered on 09/10/16 09:42; Admin Dose 1 APPLIC; Start 08/31/16 at 12:30 Tolterodine Tartrate (Detrol La) 2 mg QHS PO Last administered on 09/09/16 21: 33; Admin Dose 2 MG; Start 08/31/16 at 21:00 IV Flush (NS 10 ml) 10 ml PRN PRN IV FLUSH LINE; Start 09/01/16 at 19:30 Triamcinolone Acetonide (Kenalog 0.025% Lotion) APPLY TO palms of hand BID TOP Last administered on 09/10/16 09:39; Admin Dose 1 APPLIC; Start 09/02/16 at 14: 30 Lactulose (Enulose) 20 gm Q8 PO Last administered on 09/10/16 13:44; Admin Dose 20 GM; Start 09/02/16 at 17:30 Metoclopramide HCl (Reglan) 10 mg Q6 IV Last administered on 09/10/16 17:43; Admin Dose 10 MG; Start 09/03/16 at 18:00 Furosemide (Lasix) 40 mg DAILY@06 PO Last administered on 09/10/16 09:40; Admin Dose 40 MG; Start 09/05/16 at 06:00 Prednisone (Prednisone) 50 mg DAILY PO Last administered on 09/10/16 09:40; Admin Dose 50 MG; Start 09/06/16 at 09:00 Nystatin (Nystatin Susp) 5 ml QID PO Last administered on 09/10/16 17:43; Admin Dose 5 ML; Start 09/05/16 at 13:00 Acetaminophen (Tylenol Tab) 325 mg Q4H PRN PO PAIN AND OR ELEVATED TEMP Last administered on 09/09/16 00:31; Admin Dose 325 MG; Start 09/07/16 at 10:00 Enoxaparin Sodium (Lovenox) 40 mg DAILY SC Last administered on 09/10/16t 09:52 ; Admin Dose 40 MG; Start 09/09/16 at 09:00 Mineral Oil (Eucerin Lotion) 1 applic BID TOP ; Start 09/09/16 at 15:00 Hydrophilic Base (Aquaphor Oint 454 Gm) 1 applic BID TOP ; Start 09/09/16 at 13: 00 AMBER FERRO MD Sep 10, 2016 21:39
--- NOTE | 2016-09-10 21:50 | PN ---
Date/Time of Note Date/Time of Note DATE: 09/10/16 TIME: 21:50 Assessment/Plan Lines/Catheters IV Catheter Type (from Nrsg): PICC Line Urinary Cath still in place: No Assessment/Plan Assessment/Plan #rash: suspect pemphigus; s/p cellulitis treatment -cont steroids (topical and systemic) for hands and feet #LE edema: resolved -cont PO lasix #protein calorie malnutrition: etio unclear. possibly 2/2 insufficient food access v consequence of her previous bypass surgery v other -work up ongoing. 24 urine collection ordered by other provider completed . #elevated tumor markers: etio and clinical significanc unclear. CT 02/07 without pancreatic/hepatic mass CT chest and EGD 09.03 also unremarkable heme/onc following, appreciated assistance-->no evidence of malignancy #chronic pain: palliative/pain management on consult, appreciate assistance #depression: cont home meds #hypothyroid: cont synthroid Exam/Review of Systems Vital Signs Vitals Vital Signs Date Time Temp Pulse Resp B/P Pulse Ox O2 Delivery O2 Flow Rate FiO2 09/10/16 07:22 98.3 104 18 103/62 94 09/06/16 20:00 Room Air Intake and Output 09/09/16 09/09/16 09/10/16 15:00 23:00 07:00 Intake Total 600 ml Balance 600 ml Exam Constitutional: alert, oriented Head: atraumatic, normocephalic Eyes: EOMI, PERRL Respiratory: clear to auscultation, normal air movement Cardiovascular: regular rate and rhythm Gastrointestinal: distended, soft Extremities: normal pulses Skin: rash or lesions Results Results 24 hrs Laboratory Tests Test 09/10/16 05:10 Thyroid Stimulating Hormone (TSH) 0.106 L HIV (1&2) Antibody NEGATIVE Medications Medications Current Medications Famotidine (Pepcid) 20 mg DAILY PO Last administered on 09/10/16 09:39; Admin Dose 20 MG; Start 08/29/16 at 09:00 Thiamine HCl (Vitamin B1) 100 mg DAILY PO Last administered on 09/10/16 09:39 ; Admin Dose 100 MG; Start 08/29/16 at 09:00 Gabapentin (Neurontin) 300 mg TID PO Last administered on 09/10/16 21:36; Admin Dose 300 MG; Start 08/29/16 at 09:00 Levothyroxine Sodium (Synthroid) 150 mcg DAILY@06 PO Last administered on 05:16; Admin Dose 150 MCG; Start 08/29/16 at 06:00 Folic Acid (Folic Acid) 1 mg DAILY PO Last administered on 09/10/16 09:39; Admin Dose 1 MG; Start 08/29/16 at 09:00 Montelukast Sodium (Singulair) 10 mg HS PO Last administered on 09/10/16 21:36 ; Admin Dose 10 MG; Start 08/29/16 at 21:00 Multivitamins/ Minerals (Theragran-M) 1 tab DAILY PO Last administered on 09:40; Admin Dose 1 TAB; Start 08/29/16 at 09:00 Ondansetron HCl (Zofran Inj) 4 mg Q6H PRN IV NAUSEA AND/OR VOMITING; Start 08/29 at 00:30 Trazodone HCl (Desyrel) 50 mg HS PO Last administered on 09/08/16 22:57; Admin Dose 50 MG; Start 08/29/16 at 21:00 Venlafaxine HCl (Effexor) 150 mg DAILY PO Last administered on 09/10/16 09:39 ; Admin Dose 150 MG; Start 08/29/16 at 09:00 Venlafaxine HCl (Effexor) 75 mg HS PO Last administered on 09/10/16 21:36; Admin Dose 75 MG; Start 08/29/16 at 21:00 Prenat Multivit/ [place]/Iron/Folic Ac ( S) 1 tab DAILY PO Last administered on 09/10/16 09:40; Admin Dose 1 TAB; Start 08/29/16 at 14:30 Lactobacillus Acidophilus/ Rhamnosus (Culturelle) 1 cap BID PO Last administered on 09/10/16 21:36; Admin Dose 1 CAP; Start 08/29/16 at 14:30 Morphine Sulfate (Ms Contin (Er)) 30 mg BID PO Last administered on 09/10/16 21:41; Admin Dose 30 MG; Start 08/29/16 at 21:00 Morphine Sulfate (morphine) 3 mg Q3H PRN IV BREAKTHROUGH PAIN Last administered on 09/10/16 20:51; Admin Dose 3 MG; Start 08/29/16 at 18:00 Fluticasone Propionate (Flonase 0.05% Nasal) 1 spray DAILY NASAL Last administered on 09/10/16 09:42; Admin Dose 1 SPRAY; Start 08/30/16 at 13:30 Mupirocin (Bactroban) 1 applic BID TOP Last administered on 09/10/16 21:38; Admin Dose 1 APPLIC; Start 08/31/16 at 12:30 Tolterodine Tartrate (Detrol La) 2 mg QHS PO Last administered on 09/10/16 21: 36; Admin Dose 2 MG; Start 08/31/16 at 21:00 IV Flush (NS 10 ml) 10 ml PRN PRN IV FLUSH LINE; Start 09/01/16 at 19:30 Triamcinolone Acetonide (Kenalog 0.025% Lotion) APPLY TO palms of hand BID TOP Last administered on 09/10/16 21:41; Admin Dose 1 APPLIC; Start 09/02/16 at 14: 30 Lactulose (Enulose) 20 gm Q8 PO Last administered on 09/10/16 13:44; Admin Dose 20 GM; Start 09/02/16 at 17:30 Metoclopramide HCl (Reglan) 10 mg Q6 IV Last administered on 09/10/16 17:43; Admin Dose 10 MG; Start 09/03/16 at 18:00 Furosemide (Lasix) 40 mg DAILY@06 PO Last administered on 09/10/16 09:40; Admin Dose 40 MG; Start 09/05/16 at 06:00 Prednisone (Prednisone) 50 mg DAILY PO Last administered on 09/10/16 09:40; Admin Dose 50 MG; Start 09/06/16 at 09:00 Nystatin (Nystatin Susp) 5 ml QID PO Last administered on 09/10/16 21:36; Admin Dose 5 ML; Start 09/05/16 at 13:00 Acetaminophen (Tylenol Tab) 325 mg Q4H PRN PO PAIN AND OR ELEVATED TEMP Last administered on 09/09/16 00:31; Admin Dose 325 MG; Start 09/07/16 at 10:00 Enoxaparin Sodium (Lovenox) 40 mg DAILY SC Last administered on 09/10/16 09:52 ; Admin Dose 40 MG; Start 09/09/16 at 09:00 Mineral Oil (Eucerin Lotion) 1 applic BID TOP ; Start 09/09/16 at 15:00 Hydrophilic Base (Aquaphor Oint 454 Gm) 1 applic BID TOP Last administered on t 21:40; Admin Dose 1 APPLIC; Start 09/09/16 at 13:00 DOMINICK MCKEON MD Sep 10, 2016 21:50 DOMINICK MCKEON MD Sep 10, 2016 21:50
[2016-09-11] MEDS: METOCLOPRAMIDE 10 MG INJ IV SCH ×4 (00:23→18:40)
[2016-09-11] MEDS: morphine 4 MG/ML VIAL IV PRN ×6 (00:26→21:04)
[2016-09-11] MEDS: LACTULOSE 30ML CUP PO SCH ×3 (06:00→22:07)
[2016-09-11] MEDS: FUROSEMIDE 40 MG TAB PO SCH ×2 (06:00→10:01)
[2016-09-11] MEDS: LEVOTHYROXINE 150 MCG TAB PO SCH (06:39)
[2016-09-11 07:31] VITALS: BP 112/77; RESP 18
--- NOTE | 2016-09-11 07:58 | PN ---
DATE: 09/11/2016 HEMATOLOGY AND ONCOLOGY PROGRESS NOTE SUBJECTIVE: The patient is stable. She has no new physical complaints, nor any findings on examina tion. LABORATORY DATA: The only lab pending is the urine for porphyrins. This was collected and submitte d on September 04. Remainder of workup has thus far been negative. As previously noted, I do not recommend repeated "m arker studies." There has been repeated evaluation for underlying malignancy which has been negativ e. As previously noted, these marker studies are not intended as diagnostic or screening studies. Dictated By: JACKSON BENITEZ MD SR/NTS Conf#: [id number] DID#: [id number]
[2016-09-11] MEDS: HYDROPHILIC BASE 454 GM OINT TOP SCH ×2 (09:00→21:03)
--- NOTE | 2016-09-11 09:00 | CONS ---
Date/Time of Note Date/Time of Note DATE: 09/11/16 TIME: 08:59 Assessment/Plan Assessment/Plan Additional Assessment/Plan Assessment/Plan Additional Assessment/Plan IMPRESSION: 1. Anemia. 2. Status post gastric bypass surgery. 3. 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 4. Cachexia, most probably related to poor absorption of nutrients. 5. High CEA around 34. 6. Palmar erythema. 7. Pedal edema resolved PLAN: Continue present care. Continue thiamine. Refrain from alcohol altogether and will repeat EGD as an outpatient, examining the gastric pouch and both the limbs of gastric bypass surgery. I doubt patient has porphyria Consultation Date/Type/Reason Admit Date/Time Aug 28, 2016 at 22:59 Type of Consultation: ID [id number] HR Interval Summary Free Text/Dictation Patient is a chronic pain Exam/Review of Systems Vital Signs Vitals Vital Signs Date Time Temp Pulse Resp B/P Pulse Ox O2 Delivery O2 Flow Rate FiO2 09/11/16 07:31 98.4 92 18 112/77 100 Intake and Output 09/10/16 09/10/16 09/11/16 15:00 23:00 07:00 Intake Total 960 ml 640 ml Output Total 900 ml Balance 960 ml -260 ml Exam Constitutional: alert, oriented, well developed Psych: nl mood/affect, no complaints Head: atraumatic, normocephalic Eyes: EOMI, PERRL, nl conjunctiva, nl lids, nl sclera ENMT: nl external ears & nose, nl lips & teeth, nl nasal mucosa & septum Neck: non-tender, supple Respiratory: clear to auscultation, normal air movement Cardiovascular: nl pulses, regular rate and rhythm Gastrointestinal: nl liver, spleen, non-tender, soft Musculoskeletal: nl extremities to inspection, nl gait and stance Extremities: normal pulses 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, nl mental status, nl speech, nl strength Skin: nl turgor, No rash or lesions Lymph: nl lymph nodes Medications Medications Current Medications Famotidine (Pepcid) 20 mg DAILY PO Last administered on 09/10/16 09:39; Admin Dose 20 MG; Start 08/29/16 at 09:00 Thiamine HCl (Vitamin B1) 100 mg DAILY PO Last administered on 09/10/16 09:39 ; Admin Dose 100 MG; Start 08/29/16 at 09:00 Gabapentin (Neurontin) 300 mg TID PO Last administered on 09/10/16 21:36; Admin Dose 300 MG; Start 08/29/16 at 09:00 Levothyroxine Sodium (Synthroid) 150 mcg DAILY@06 PO Last administered on 06:39; Admin Dose 150 MCG; Start 08/29/16 at 06:00 Folic Acid (Folic Acid) 1 mg DAILY PO Last administered on 09/10/16 09:39; Admin Dose 1 MG; Start 08/29/16 at 09:00 Montelukast Sodium (Singulair) 10 mg HS PO Last administered on 09/10/16 21:36 ; Admin Dose 10 MG; Start 08/29/16 at 21:00 Multivitamins/ Minerals (Theragran-M) 1 tab DAILY PO Last administered on 09:40; Admin Dose 1 TAB; Start 08/29/16 at 09:00 Ondansetron HCl (Zofran Inj) 4 mg Q6H PRN IV NAUSEA AND/OR VOMITING; Start 08/29 at 00:30 Trazodone HCl (Desyrel) 50 mg HS PO Last administered on 09/08/16 22:57; Admin Dose 50 MG; Start 08/29/16 at 21:00 Venlafaxine HCl (Effexor) 150 mg DAILY PO Last administered on 09/10/16 09:39 ; Admin Dose 150 MG; Start 08/29/16 at 09:00 Venlafaxine HCl (Effexor) 75 mg HS PO Last administered on 09/10/16 21:36; Admin Dose 75 MG; Start 08/29/16 at 21:00 Prenat Multivit/ Vice President Of Recruiting/Iron/Folic Ac ( S) 1 tab DAILY PO Last administered on 09/10/16 09:40; Admin Dose 1 TAB; Start 08/29/16 at 14:30 Lactobacillus Acidophilus/ Rhamnosus (Culturelle) 1 cap BID PO Last administered on 09/10/16 21:36; Admin Dose 1 CAP; Start 08/29/16 at 14:30 Morphine Sulfate (Ms Contin (Er)) 30 mg BID PO Last administered on 09/10/16 21:41; Admin Dose 30 MG; Start 08/29/16 at 21:00 Morphine Sulfate (morphine) 3 mg Q3H PRN IV BREAKTHROUGH PAIN Last administered on 09/11/16 08:23; Admin Dose 3 MG; Start 08/29/16 at 18:00 Fluticasone Propionate (Flonase 0.05% Nasal) 1 spray DAILY NASAL Last administered on 09/10/16 09:42; Admin Dose 1 SPRAY; Start 08/30/16 at 13:30 Mupirocin (Bactroban) 1 applic BID TOP Last administered on 09/10/16 21:38; Admin Dose 1 APPLIC; Start 08/31/16 at 12:30 Tolterodine Tartrate (Detrol La) 2 mg QHS PO Last administered on 09/10/16 21: 36; Admin Dose 2 MG; Start 08/31/16 at 21:00 IV Flush (NS 10 ml) 10 ml PRN PRN IV FLUSH LINE; Start 09/01/16 at 19:30 Triamcinolone Acetonide (Kenalog 0.025% Lotion) APPLY TO palms of hand BID TOP Last administered on 09/10/16 21:41; Admin Dose 1 APPLIC; Start 09/02/16 at 14: 30 Lactulose (Enulose) 20 gm Q8 PO Last administered on 09/10/16 13:44; Admin Dose 20 GM; Start 09/02/16 at 17:30 Metoclopramide HCl (Reglan) 10 mg Q6 IV Last administered on 09/11/16 06:39; Admin Dose 10 MG; Start 09/03/16 at 18:00 Furosemide (Lasix) 40 mg DAILY@06 PO Last administered on 09/10/16 09:40; Admin Dose 40 MG; Start 09/05/16 at 06:00 Prednisone (Prednisone) 50 mg DAILY PO Last administered on 09/10/16 09:40; Admin Dose 50 MG; Start 09/06/16 at 09:00 Nystatin (Nystatin Susp) 5 ml QID PO Last administered on 09/10/16 21:36; Admin Dose 5 ML; Start 09/05/16 at 13:00 Acetaminophen (Tylenol Tab) 325 mg Q4H PRN PO PAIN AND OR ELEVATED TEMP Last administered on 09/09/16 00:31; Admin Dose 325 MG; Start 09/07/16 at 10:00 Enoxaparin Sodium (Lovenox) 40 mg DAILY SC Last administered on 09/10/16 09:52 ; Admin Dose 40 MG; Start 09/09/16 at 09:00 Mineral Oil (Eucerin Lotion) 1 applic BID TOP ; Start 09/09/16 at 15:00 Hydrophilic Base (Aquaphor Oint 454 Gm) 1 applic BID TOP Last administered on 21:40; Admin Dose 1 APPLIC; Start 09/09/16 at 13:00 AMBER FERRO MD Sep 11, 2016 09:00
[2016-09-11] MEDS: predniSONE 50 MG TAB PO SCH (09:51)
[2016-09-11] MEDS: MULTIVITAMINS/MINERALS TAB PO SCH (09:51)
[2016-09-11] MEDS: VENLAFAXINE 75 MG TABLET PO SCH ×2 (09:51→21:02)
[2016-09-11] MEDS: GABAPENTIN 300 MG CAP PO SCH ×3 (09:51→21:02)
[2016-09-11] MEDS: FAMOTIDINE 20 MG TAB PO SCH (09:51)
[2016-09-11] MEDS: LACTOBACILLUS RHAMNOSUS CAP PO SCH ×2 (09:51→21:02)
[2016-09-11] MEDS: MULTIVIT/MIN/FOLATE/IRON/PREN TAB PO SCH (09:51)
[2016-09-11] MEDS: THIAMINE 100 MG TAB PO SCH (09:51)
[2016-09-11] MEDS: FOLIC ACID 1 MG TAB PO SCH (09:52)
[2016-09-11] MEDS: NYSTATIN SUSP 5 ML CUP PO SCH ×4 (09:52→21:02)
[2016-09-11] MEDS: MUPIROCIN 2% 22 GM OINT TOP SCH ×2 (09:52→21:03)
[2016-09-11] MEDS: FLUTICASONE 0.05% 16 GM NAS SPRAY NASAL SCH (09:52)
[2016-09-11] MEDS: morphine (ER) 30 MG TAB PO SCH ×2 (09:52→22:08)
[2016-09-11] MEDS: TRIAMCINOLONE ACET 0.025% 60 ML LOT TOP SCH ×2 (09:53→21:03)
[2016-09-11] MEDS: MINERAL OIL 240 ML LOT TOP SCH ×2 (09:54→21:00)
[2016-09-11] MEDS: ENOXAPARIN 40 MG/0.4 ML SYG SC SCH (10:10)
[2016-09-11 19:23] VITALS: BP 115/79; RESP 20
[2016-09-11] MEDS: traZODone 50 MG TAB PO SCH (21:00)
[2016-09-11] MEDS: MONTELUKAST 10 MG TAB PO SCH (21:02)
[2016-09-11] MEDS: TOLTERODINE (SR) 2 MG CAP PO SCH (21:02)
--- NOTE | 2016-09-11 23:52 | PN ---
Date/Time of Note Date/Time of Note DATE: 09/11/16 TIME: 23:51 Assessment/Plan VTE Prophylaxis VTE Prophylaxis Intervention: SCD's Lines/Catheters IV Catheter Type (from Nrs): Saline Lock Urinary Cath still in place: No Assessment/Plan Assessment/Plan #rash: suspect pemphigus; s/p cellulitis treatment -cont steroids (topical and systemic) for hands and feet #LE edema: resolved -cont PO lasix #protein calorie malnutrition: etio unclear. possibly 2/2 insufficient food access v consequence of her previous bypass surgery v other -work up ongoing. 24 urine collection ordered by other provider completed . #elevated tumor markers: etio and clinical significanc unclear. CT 02/07 without pancreatic/hepatic mass CT chest and EGD 09.03 also unremarkable heme/onc following, appreciated assistance-->no evidence of malignancy #chronic pain: palliative/pain management on consult, appreciate assistance #depression: cont home meds #hypothyroid: cont synthroid Subjective 24 Hr Interval Summary Free Text/Dictation c/o generalized pain Exam/Review of Systems Vital Signs Vitals Vital Signs Date Time Temp Pulse Resp B/P Pulse Ox O2 Delivery O2 Flow Rate FiO2 09/11/16 19:23 98.6 108 20 115/79 96 Intake and Output 09/10/16 09/10/16 09/11/16 15:00 23:00 07:00 Intake Total 960 ml 640 ml Output Total 900 ml Balance 960 ml -260 ml Exam Constitutional: alert, oriented Head: atraumatic, normocephalic Eyes: EOMI, PERRL Respiratory: clear to auscultation, normal air movement Cardiovascular: regular rate and rhythm Gastrointestinal: distended, soft Extremities: normal pulses Skin: rash or lesions Medications Medications Current Medications Famotidine (Pepcid) 20 mg DAILY PO Last administered on 09/11/16 09:51; Admin Dose 20 MG; Start 08/29/16 at 09:00 Thiamine HCl (Vitamin B1) 100 mg DAILY PO Last administered on 09/11/16 09:51 ; Admin Dose 100 MG; Start 08/29/16 at 09:00 Gabapentin (Neurontin) 300 mg TID PO Last administered on 09/11/16 21:02; Admin Dose 300 MG; Start 08/29/16 at 09:00 Levothyroxine Sodium (Synthroid) 150 mcg DAILY@06 PO Last administered on 06:39; Admin Dose 150 MCG; Start 08/29/16 at 06:00 Folic Acid (Folic Acid) 1 mg DAILY PO Last administered on 09/11/16 09:52; Admin Dose 1 MG; Start 08/29/16 at 09:00 Montelukast Sodium (Singulair) 10 mg HS PO Last administered on 09/11/16 21:02 ; Admin Dose 10 MG; Start 08/29/16 at 21:00 Multivitamins/ Minerals (Theragran-M) 1 tab DAILY PO Last administered on 09:51; Admin Dose 1 TAB; Start 08/29/16 at 09:00 Ondansetron HCl (Zofran Inj) 4 mg Q6H PRN IV NAUSEA AND/OR VOMITING; Start 08/29 at 00:30 Trazodone HCl (Desyrel) 50 mg HS PO Last administered on 09/08/16 22:57; Admin Dose 50 MG; Start 08/29/16 at 21:00 Venlafaxine HCl (Effexor) 150 mg DAILY PO Last administered on 09/11/16 09:51 ; Admin Dose 150 MG; Start 08/29/16 at 09:00 Venlafaxine HCl (Effexor) 75 mg HS PO Last administered on 09/11/16 21:02; Admin Dose 75 MG; Start 08/29/16 at 21:00 Prenat Multivit/ Nursery School Attendant/Iron/Folic Ac ( S) 1 tab DAILY PO Last administered on 09/11/16 09:51; Admin Dose 1 TAB; Start 08/29/16 at 14:30 Lactobacillus Acidophilus/ Rhamnosus (Culturelle) 1 cap BID PO Last administered on 09/11/16 21:02; Admin Dose 1 CAP; Start 08/29/16 at 14:30 Morphine Sulfate (Ms Contin (Er)) 30 mg BID PO Last administered on 09/11/16 22:08; Admin Dose 30 MG; Start 08/29/16 at 21:00 Morphine Sulfate (morphine) 3 mg Q3H PRN IV BREAKTHROUGH PAIN Last administered on 09/11/16 21:04; Admin Dose 3 MG; Start 08/29/16 at 18:00 Fluticasone Propionate (Flonase 0.05% Nasal) 1 spray DAILY NASAL Last administered on 09/11/16 09:52; Admin Dose 1 SPRAY; Start 08/30/16 at 13:30 Mupirocin (Bactroban) 1 applic BID TOP Last administered on 09/11/16 21:03; Admin Dose 1 APPLIC; Start 08/31/16 at 12:30 Tolterodine Tartrate (Detrol La) 2 mg QHS PO Last administered on 09/11/16 21: 02; Admin Dose 2 MG; Start 08/31/16 at 21:00 IV Flush (NS 10 ml) 10 ml PRN PRN IV FLUSH LINE; Start 09/01/16 at 19:30 Triamcinolone Acetonide (Kenalog 0.025% Lotion) APPLY TO palms of hand BID TOP Last administered on 09/11/16 21:03; Admin Dose 1 APPLIC; Start 09/02/16 at 14: 30 Lactulose (Enulose) 20 gm Q8 PO Last administered on 09/11/16 22:07; Admin Dose 20 GM; Start 09/02/16 at 17:30 Metoclopramide HCl (Reglan) 10 mg Q6 IV Last administered on 09/11/16 18:40; Admin Dose 10 MG; Start 09/03/16 at 18:00 Furosemide (Lasix) 40 mg DAILY@06 PO Last administered on 09/11/16 10:01; Admin Dose 40 MG; Start 09/05/16 at 06:00 Prednisone (Prednisone) 50 mg DAILY PO Last administered on 09/11/16 09:51; Admin Dose 50 MG; Start 09/06/16 at 09:00 Nystatin (Nystatin Susp) 5 ml QID PO Last administered on 09/11/16 21:02; Admin Dose 5 ML; Start 09/05/16 at 13:00 Acetaminophen (Tylenol Tab) 325 mg Q4H PRN PO PAIN AND OR ELEVATED TEMP Last administered on 09/09/16 00:31; Admin Dose 325 MG; Start 09/07/16 at 10:00 Enoxaparin Sodium (Lovenox) 40 mg DAILY SC Last administered on 09/11/16 10:10 ; Admin Dose 40 MG; Start 09/09/16 at 09:00 Hydrophilic Base (Aquaphor Oint 454 Gm) 1 applic BID TOP Last administered on 21:03; Admin Dose 1 APPLIC; Start 09/09/16 at 13:00 Mineral Oil (Eucerin Lotion) 1 applic BID TOP ; Start 09/11/16 at 10:21 DOMINICK MCKEON MD Sep 11, 2016 23:52 Gabapentin (Neurontin) 300 mg TID PO Last administered on 09/11/16 21:02; Admin Dose 300 MG; Start 08/29/16 at 09:00 Levothyroxine Sodium (Synthroid) 150 mcg DAILY@06 PO Last administered on 06:39; Admin Dose 150 MCG; Start 08/29/16 at 06:00 Folic Acid (Folic Acid) 1 mg DAILY PO Last administered on 09/11/16 09:52; Admin Dose 1 MG; Start 08/29/16 at 09:00 Montelukast Sodium (Singulair) 10 mg HS PO Last administered on 09/11/16 21:02 ; Admin Dose 10 MG; Start 08/29/16 at 21:00 Multivitamins/ Minerals (Theragran-M) 1 tab DAILY PO Last administered on 09:51; Admin Dose 1 TAB; Start 08/29/16 at 09:00 Ondansetron HCl (Zofran Inj) 4 mg Q6H PRN IV NAUSEA AND/OR VOMITING; Start 08/29 at 00:30 Trazodone HCl (Desyrel) 50 mg HS PO Last administered on 09/08/16 22:57; Admin Dose 50 MG; Start 08/29/16 at 21:00 Venlafaxine HCl (Effexor) 150 mg DAILY PO Last administered on 09/11/16 09:51 ; Admin Dose 150 MG; Start 08/29/16 at 09:00 Venlafaxine HCl (Effexor) 75 mg HS PO Last administered on 09/11/16 21:02; Admin Dose 75 MG; Start 08/29/16 at 21:00 Prenat Multivit/ [place]/Iron/Folic Ac ( S) 1 tab DAILY PO Last administered on 09/11/16 09:51; Admin Dose 1 TAB; Start 08/29/16 at 14:30 Lactobacillus Acidophilus/ Rhamnosus (Culturelle) 1 cap BID PO Last administered on 09/11/16 21:02; Admin Dose 1 CAP; Start 08/29/16 at 14:30 Morphine Sulfate (Ms Contin (Er)) 30 mg BID PO Last administered on 09/11/16 22:08; Admin Dose 30 MG; Start 08/29/16 at 21:00 Morphine Sulfate (morphine) 3 mg Q3H PRN IV BREAKTHROUGH PAIN Last administered on 09/11/16 21:04; Admin Dose 3 MG; Start 08/29/16 at 18:00 Fluticasone Propionate (Flonase 0.05% Nasal) 1 spray DAILY NASAL Last administered on 09/11/16 09:52; Admin Dose 1 SPRAY; Start 08/30/16 at 13:30 Mupirocin (Bactroban) 1 applic BID TOP Last administered on 09/11/16 21:03; Admin Dose 1 APPLIC; Start 08/31/16 at 12:30 Tolterodine Tartrate (Detrol La) 2 mg QHS PO Last administered on 09/11/16 21: 02; Admin Dose 2 MG; Start 08/31/16 at 21:00 IV Flush (NS 10 ml) 10 ml PRN PRN IV FLUSH LINE; Start 09/01/16 at 19:30 Triamcinolone Acetonide (Kenalog 0.025% Lotion) APPLY TO palms of hand BID TOP Last administered on 09/11/16 21:03; Admin Dose 1 APPLIC; Start 09/02/16 at 14: 30 Lactulose (Enulose) 20 gm Q8 PO Last administered on 09/11/16 22:07; Admin Dose 20 GM; Start 09/02/16 at 17:30 Metoclopramide HCl (Reglan) 10 mg Q6 IV Last administered on 09/11/16 18:40; Admin Dose 10 MG; Start 09/03/16 at 18:00 Furosemide (Lasix) 40 mg DAILY@06 PO Last administered on 09/11/16 10:01; Admin Dose 40 MG; Start 09/05/16 at 06:00 Prednisone (Prednisone) 50 mg DAILY PO Last administered on 09/11/16 09:51; Admin Dose 50 MG; Start 09/06/16 at 09:00 Nystatin (Nystatin Susp) 5 ml QID PO Last administered on 6/20/17at 21:02; Admin Dose 5 ML; Start 09/05/16 at 13:00 Acetaminophen (Tylenol Tab) 325 mg Q4H PRN PO PAIN AND OR ELEVATED TEMP Last administered on 09/09/16 00:31; Admin Dose 325 MG; Start 09/07/16 at 10:00 Enoxaparin Sodium (Lovenox) 40 mg DAILY SC Last administered on 09/11/16 10:10 ; Admin Dose 40 MG; Start 09/09/16 at 09:00 Hydrophilic Base (Aquaphor Oint 454 Gm) 1 applic BID TOP Last administered on 21:03; Admin Dose 1 APPLIC; Start 09/09/16 at 13:00 Mineral Oil (Eucerin Lotion) 1 applic BID TOP ; Start 09/11/16 at 10:21 DOMINICK MCKEON MD Sep 11, 2016 23:52
[2016-09-12] MEDS ORDERED: BISACODYL 10 MG SUPP PR PRN
[2016-09-12] MEDS ORDERED: MAGNESIUM HYDROXIDE 30ML CUP PO PRN
[2016-09-12] MEDS: METOCLOPRAMIDE 10 MG INJ IV SCH ×5 (00:09→23:43)
[2016-09-12] MEDS: morphine 4 MG/ML VIAL IV PRN ×7 (00:10→23:43)
[2016-09-12] MEDS: FUROSEMIDE 40 MG TAB PO SCH ×2 (06:00→10:13)
[2016-09-12] MEDS: LACTULOSE 30ML CUP PO SCH ×3 (06:38→21:52)
[2016-09-12] MEDS: LEVOTHYROXINE 150 MCG TAB PO SCH (06:38)
[2016-09-12 07:46] VITALS: BP 129/90; RESP 18
--- NOTE | 2016-09-12 07:57 | PN ---
DATE: 09/12/2016 HEMATOLOGY AND ONCOLOGY PROGRESS NOTE SUBJECTIVE: The patient again remains clinically unchanged. The patient has no recurrence of dermatologic findings which were present at the time of admission. Workup thus far has been negative. Still awaiting the results of the urine collection for porphyrin s. As previously noted, there is no evidence of malignancy to account for the patient's increased " tumor markers." I will follow the patient's medical record to awaiting the results of this urine study, but malena e will see the patient on a p.r.n. basis. Once again, thank you very much for the opportunity of participating in the medical care of this james y interesting and pleasant patient. Dictated By: JACKSON BENITEZ MD SR/NTS Conf#: [id number] DID#: [id number]
[2016-09-12] MEDS: HYDROPHILIC BASE 454 GM OINT TOP SCH ×2 (09:00→20:46)
[2016-09-12] MEDS: VENLAFAXINE 75 MG TABLET PO SCH ×2 (09:56→20:43)
[2016-09-12] MEDS: THIAMINE 100 MG TAB PO SCH (09:56)
[2016-09-12] MEDS: FAMOTIDINE 20 MG TAB PO SCH (09:57)
[2016-09-12] MEDS: MULTIVIT/MIN/FOLATE/IRON/PREN TAB PO SCH (09:57)
[2016-09-12] MEDS: MULTIVITAMINS/MINERALS TAB PO SCH (09:57)
[2016-09-12] MEDS: GABAPENTIN 300 MG CAP PO SCH ×3 (09:57→20:44)
[2016-09-12] MEDS: LACTOBACILLUS RHAMNOSUS CAP PO SCH ×2 (09:58→20:43)
[2016-09-12] MEDS: FOLIC ACID 1 MG TAB PO SCH (09:58)
[2016-09-12] MEDS: FLUTICASONE 0.05% 16 GM NAS SPRAY NASAL SCH (09:59)
[2016-09-12] MEDS: NYSTATIN SUSP 5 ML CUP PO SCH ×4 (09:59→22:02)
[2016-09-12 10:00] VITALS: BP 135/90; PULSE 101
[2016-09-12] MEDS: TRIAMCINOLONE ACET 0.025% 60 ML LOT TOP SCH ×2 (10:00→20:45)
[2016-09-12] MEDS: MUPIROCIN 2% 22 GM OINT TOP SCH ×2 (10:00→20:49)
[2016-09-12] MEDS: predniSONE 50 MG TAB PO SCH (10:11)
[2016-09-12] MEDS: MINERAL OIL 240 ML LOT TOP SCH ×2 (10:11→20:47)
[2016-09-12] MEDS: ENOXAPARIN 40 MG/0.4 ML SYG SC SCH (10:47)
[2016-09-12] MEDS: morphine (ER) 30 MG TAB PO SCH ×2 (11:27→21:52)
[2016-09-12] MEDS ORDERED: PRED10TA PO (12:35)
--- NOTE | 2016-09-12 12:39 | PDOCDIS ---
Discharge Instructions CONDITION Patient Condition: Stable HOME CARE INSTRUCTIONS: Special Diet: REGULAR DIET ACTIVITY: Activity Restrictions: Slowly Increase Activity FOLLOW UP/APPOINTMENTS Appointments follow-up with primary care doctor OTHER ORDERS: Other Orders: Call 911 and Go to the nearest ER if you if rash returns, for severe pain, shortness of breath, fever, chills DOMINICK MCKEON MD Sep 12, 2016 12:39
--- NOTE | 2016-09-12 19:45 | CONS ---
Date/Time of Note Date/Time of Note DATE: 09/12/16 TIME: 19:44 Assessment/Plan Assessment/Plan Additional Assessment/Plan IMPRESSION: 1. Anemia. 2. Status post gastric bypass surgery. 3. 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 4. Cachexia, most probably related to poor absorption of nutrients. 5. High CEA around 34. 6. Palmar erythema. 7. Pedal edema resolved PLAN: Continue present care. Continue thiamine. Refrain from alcohol altogether and will repeat EGD as an outpatient, examining the gastric pouch and both the limbs of gastric bypass surgery. Consultation Date/Type/Reason Admit Date/Time Aug 28, 2016 at 22:59 Type of Consultation: ID [id number] HR Interval Summary Constitutional: improved Exam/Review of Systems Vital Signs Vitals Vital Signs Date Time Temp Pulse Resp B/P Pulse Ox O2 Delivery O2 Flow Rate FiO2 09/12/16 10:00 101 135/90 09/12/16 07:46 98.1 18 98 Intake and Output 09/11/16 09/11/16 09/12/16 15:00 23:00 07:00 Intake Total 1850 ml 360 ml Output Total 1700 ml 700 ml Balance 150 ml -340 ml Exam Constitutional: alert, oriented, well developed Psych: nl mood/affect, no complaints Head: atraumatic, normocephalic Eyes: EOMI, PERRL, nl conjunctiva, nl lids, nl sclera ENMT: nl external ears & nose, nl lips & teeth, nl nasal mucosa & septum Neck: non-tender, supple Respiratory: clear to auscultation, normal air movement Cardiovascular: nl pulses, regular rate and rhythm Gastrointestinal: nl liver, spleen, non-tender, soft Musculoskeletal: nl extremities to inspection, nl gait and stance Extremities: normal pulses Neurological: CERTIFIED 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 TECHNICIAN II-XII intact, nl mental status, nl speech, nl strength Skin: nl turgor, No rash or lesions Lymph: nl lymph nodes Medications Medications Current Medications Famotidine (Pepcid) 20 mg DAILY PO Last administered on 09/12/16 09:57; Admin Dose 20 MG; Start 08/29/16 at 09:00 Thiamine HCl (Vitamin B1) 100 mg DAILY PO Last administered on 09/12/16 09:56 ; Admin Dose 100 MG; Start 08/29/16 at 09:00 Gabapentin (Neurontin) 300 mg TID PO Last administered on 09/12/16 13:15; Admin Dose 300 MG; Start 08/29/16 at 09:00 Levothyroxine Sodium (Synthroid) 150 mcg DAILY@06 PO Last administered on 06:38; Admin Dose 150 MCG; Start 08/29/16 at 06:00 Folic Acid (Folic Acid) 1 mg DAILY PO Last administered on 09/12/16 09:58; Admin Dose 1 MG; Start 08/29/16 at 09:00 Montelukast Sodium (Singulair) 10 mg HS PO Last administered on 09/11/16 21:02 ; Admin Dose 10 MG; Start 08/29/16 at 21:00 Multivitamins/ Minerals (Theragran-M) 1 tab DAILY PO Last administered on 09:57; Admin Dose 1 TAB; Start 08/29/16 at 09:00 Ondansetron HCl (Zofran Inj) 4 mg Q6H PRN IV NAUSEA AND/OR VOMITING; Start 08/29 at 00:30 Trazodone HCl (Desyrel) 50 mg HS PO Last administered on 09/08/16 22:57; Admin Dose 50 MG; Start 08/29/16 at 21:00 Venlafaxine HCl (Effexor) 150 mg DAILY PO Last administered on 09/12/16 09:56 ; Admin Dose 150 MG; Start 08/29/16 at 09:00 Venlafaxine HCl (Effexor) 75 mg HS PO Last administered on 09/11/16 21:02; Admin Dose 75 MG; Start 08/29/16 at 21:00 Prenat Multivit/ [place]/Iron/Folic Ac ( S) 1 tab DAILY PO Last administered on 09/12/16 09:57; Admin Dose 1 TAB; Start 08/29/16 at 14:30 Lactobacillus Acidophilus/ Rhamnosus (Culturelle) 1 cap BID PO Last administered on 09/12/16 09:58; Admin Dose 1 CAP; Start 08/29/16 at 14:30 Morphine Sulfate (Ms Contin (Er)) 30 mg BID PO Last administered on 09/12/16 11:27; Admin Dose 30 MG; Start 08/29/16 at 21:00 Morphine Sulfate (morphine) 3 mg Q3H PRN IV BREAKTHROUGH PAIN Last administered on 09/12/16 17:15; Admin Dose 3 MG; Start 08/29/16 at 18:00 Fluticasone Propionate (Flonase 0.05% Nasal) 1 spray DAILY NASAL Last administered on 09/12/16 09:59; Admin Dose 1 SPRAY; Start 08/30/16 at 13:30 Mupirocin (Bactroban) 1 applic BID TOP Last administered on 09/12/16 10:00; Admin Dose 1 APPLIC; Start 08/31/16 at 12:30 Tolterodine Tartrate (Detrol La) 2 mg QHS PO Last administered on 09/11/16 21: 02; Admin Dose 2 MG; Start 08/31/16 at 21:00 IV Flush (NS 10 ml) 10 ml PRN PRN IV FLUSH LINE; Start 09/01/16 at 19:30 Triamcinolone Acetonide (Kenalog 0.025% Lotion) APPLY TO palms of hand BID TOP Last administered on 09/12/16 10:00; Admin Dose 1 APPLIC; Start 09/02/16 at 14: 30 Lactulose (Enulose) 20 gm Q8 PO Last administered on 09/12/16 14:55; Admin Dose 20 GM; Start 09/02/16 at 17:30 Metoclopramide HCl (Reglan) 10 mg Q6 IV Last administered on 09/12/16 18:32; Admin Dose 10 MG; Start 09/03/16 at 18:00 Furosemide (Lasix) 40 mg DAILY@06 PO Last administered on 09/12/16 10:13; Admin Dose 40 MG; Start 09/05/16 at 06:00 Prednisone (Prednisone) 50 mg DAILY PO Last administered on 09/12/16 10:11; Admin Dose 50 MG; Start 09/06/16 at 09:00 Nystatin (Nystatin Susp) 5 ml QID PO Last administered on 09/12/16 18:31; Admin Dose 5 ML; Start 09/05/16 at 13:00 Acetaminophen (Tylenol Tab) 325 mg Q4H PRN PO PAIN AND OR ELEVATED TEMP Last administered on 09/09/16 00:31; Admin Dose 325 MG; Start 09/07/16 at 10:00 Enoxaparin Sodium (Lovenox) 40 mg DAILY SC Last administered on 09/12/16 10:47 ; Admin Dose 40 MG; Start 09/09/16 at 09:00 Hydrophilic Base (Aquaphor Oint 454 Gm) 1 applic BID TOP Last administered on 09:00; Admin Dose 1 APPLIC; Start 09/09/16 at 13:00 Mineral Oil (Eucerin Lotion) 1 applic BID TOP Last administered on 09/12/16 10 :11; Admin Dose 1 APPLIC; Start 09/11/16 at 10:21 Magnesium Hydroxide (Milk Of Mag) 30 ml DAILY PRN PO CONSTIPATION Last administered on 09/12/16 00:09; Admin Dose 30 ML; Start 09/12/16 at 00:00 Bisacodyl (Dulcolax Supp) 10 mg DAILY PRN [place] CONSTIPATION Last administered on 09/12/16 06:38; Admin Dose 10 MG; Start 09/12/16 at 00:00 AMBER FERRO MD Sep 12, 2016 19:45
[2016-09-12 19:53] VITALS: BP 127/60; RESP 20
[2016-09-12 20:03] VITALS: BP 126/75; RESP 20
[2016-09-12] MEDS: TOLTERODINE (SR) 2 MG CAP PO SCH (20:43)
[2016-09-12] MEDS: MONTELUKAST 10 MG TAB PO SCH (20:44)
[2016-09-12] MEDS: traZODone 50 MG TAB PO SCH (21:00)
[2016-09-13] MEDS: METOCLOPRAMIDE 10 MG INJ IV SCH ×3 (06:03→18:30)
[2016-09-13] MEDS: LACTULOSE 30ML CUP PO SCH ×3 (06:03→21:38)
[2016-09-13] MEDS: LEVOTHYROXINE 150 MCG TAB PO SCH (06:03)
[2016-09-13] MEDS: morphine 4 MG/ML VIAL IV PRN ×3 (06:03→14:05)
[2016-09-13 08:13] VITALS: BP 124/84; RESP 18
[2016-09-13] MEDS: morphine (ER) 30 MG TAB PO SCH ×2 (08:44→21:37)
[2016-09-13] MEDS: GABAPENTIN 300 MG CAP PO SCH ×3 (08:45→21:37)
[2016-09-13] MEDS: LACTOBACILLUS RHAMNOSUS CAP PO SCH ×2 (08:45→21:36)
[2016-09-13] MEDS: predniSONE 50 MG TAB PO SCH (08:45)
[2016-09-13] MEDS: FOLIC ACID 1 MG TAB PO SCH (08:45)
[2016-09-13] MEDS: THIAMINE 100 MG TAB PO SCH (08:45)
[2016-09-13] MEDS: NYSTATIN SUSP 5 ML CUP PO SCH ×4 (08:45→21:37)
[2016-09-13] MEDS: MULTIVITAMINS/MINERALS TAB PO SCH (08:45)
[2016-09-13] MEDS: VENLAFAXINE 75 MG TABLET PO SCH ×2 (08:45→21:37)
[2016-09-13] MEDS: MULTIVIT/MIN/FOLATE/IRON/PREN TAB PO SCH (08:45)
[2016-09-13] MEDS: FAMOTIDINE 20 MG TAB PO SCH (08:45)
[2016-09-13] MEDS: FLUTICASONE 0.05% 16 GM NAS SPRAY NASAL SCH (08:48)
[2016-09-13] MEDS: MUPIROCIN 2% 22 GM OINT TOP SCH ×2 (08:48→21:40)
[2016-09-13] MEDS: HYDROPHILIC BASE 454 GM OINT TOP SCH ×2 (08:49→21:38)
[2016-09-13] MEDS: MINERAL OIL 240 ML LOT TOP SCH ×2 (08:49→21:39)
[2016-09-13] MEDS: TRIAMCINOLONE ACET 0.025% 60 ML LOT TOP SCH ×2 (08:50→21:39)
[2016-09-13] MEDS: ENOXAPARIN 40 MG/0.4 ML SYG SC SCH (08:57)
--- NOTE | 2016-09-13 13:30 | PN ---
Date/Time of Note Date/Time of Note DATE: 09/13/16 TIME: 13:25 Assessment/Plan VTE Prophylaxis VTE Prophylaxis Intervention: LMWH Lines/Catheters IV Catheter Type (from Nrs): PICC Line Central line still needed: Yes Urinary Cath still in place: No Assessment/Plan Assessment/Plan #rash: suspect pemphigus; s/p cellulitis treatment -cont steroids (topical and systemic) for hands and feet #LE edema: resolved -cont PO lasix #protein calorie malnutrition: etio unclear. possibly 2/2 insufficient food access v consequence of her previous bypass surgery v other -work up ongoing. 24 urine collection ordered by other provider completed 09.06 #elevated tumor markers: etio and clinical significanc unclear. CT 02/07 without pancreatic/hepatic mass CT chest and EGD 09.03 also unremarkable heme/onc following, appreciated assistance-->no evidence of malignancy #chronic pain: palliative/pain management on consult, appreciate assistance #depression: cont home meds #hypothyroid: cont synthroid Subjective 24 Hr Interval Summary Free Text/Dictation no acute events overnight Exam/Review of Systems Vital Signs Vitals Vital Signs Date Time Temp Pulse Resp B/P Pulse Ox O2 Delivery O2 Flow Rate FiO2 09/13/16 08:13 98.3 92 18 124/84 96 Intake and Output 09/12/16 09/12/16 09/13/16 15:00 23:00 07:00 Intake Total 1600 ml 980 ml Balance 1600 ml 980 ml Results Results 24 hrs Laboratory Tests Test 09/13/16 11:22 Lab Scanned Report REFERENCE LAB Medications Medications Current Medications Famotidine (Pepcid) 20 mg DAILY PO Last administered on 09/13/16 08:45; Admin Dose 20 MG; Start 08/29/16 at 09:00 Thiamine HCl (Vitamin B1) 100 mg DAILY PO Last administered on 09/13/16 08:45 ; Admin Dose 100 MG; Start 08/29/16 at 09:00 Gabapentin (Neurontin) 300 mg TID PO Last administered on 09/13/16 08:45; Admin Dose 300 MG; Start 08/29/16 at 09:00 Levothyroxine Sodium (Synthroid) 150 mcg DAILY@06 PO Last administered on 06:03; Admin Dose 150 MCG; Start 08/29/16 at 06:00 Folic Acid (Folic Acid) 1 mg DAILY PO Last administered on 09/13/16 08:45; Admin Dose 1 MG; Start 08/29/16 at 09:00 Montelukast Sodium (Singulair) 10 mg HS PO Last administered on 09/12/16 20:44 ; Admin Dose 10 MG; Start 08/29/16 at 21:00 Multivitamins/ Minerals (Theragran-M) 1 tab DAILY PO Last administered on 08:45; Admin Dose 1 TAB; Start 08/29/16 at 09:00 Ondansetron HCl (Zofran Inj) 4 mg Q6H PRN IV NAUSEA AND/OR VOMITING; Start 08/29 at 00:30 Trazodone HCl (Desyrel) 50 mg HS PO Last administered on 09/08/16 22:57; Admin Dose 50 MG; Start 08/29/16 at 21:00 Venlafaxine HCl (Effexor) 150 mg DAILY PO Last administered on 09/13/16 08:45 ; Admin Dose 150 MG; Start 08/29/16 at 09:00 Venlafaxine HCl (Effexor) 75 mg HS PO Last administered on 09/12/16 20:43; Admin Dose 75 MG; Start 08/29/16 at 21:00 Prenat Multivit/ Service Crew Supervisor/Iron/Folic Ac ( S) 1 tab DAILY PO Last administered on 09/13/16 08:45; Admin Dose 1 TAB; Start 08/29/16 at 14:30 Lactobacillus Acidophilus/ Rhamnosus (Culturelle) 1 cap BID PO Last administered on 09/13/16 08:45; Admin Dose 1 CAP; Start 08/29/16 at 14:30 Morphine Sulfate (Ms Contin (Er)) 30 mg BID PO Last administered on 09/13/16 08:44; Admin Dose 30 MG; Start 08/29/16 at 21:00 Morphine Sulfate (morphine) 3 mg Q3H PRN IV BREAKTHROUGH PAIN Last administered on 09/13/16 10:38; Admin Dose 3 MG; Start 08/29/16 at 18:00 Fluticasone Propionate (Flonase 0.05% Nasal) 1 spray DAILY NASAL Last administered on 09/13/16 08:48; Admin Dose 1 SPRAY; Start 08/30/16 at 13:30 Mupirocin (Bactroban) 1 applic BID TOP Last administered on 09/13/16 08:48; Admin Dose 1 APPLIC; Start 08/31/16 at 12:30 Tolterodine Tartrate (Detrol La) 2 mg QHS PO Last administered on 09/12/16 20: 43; Admin Dose 2 MG; Start 08/31/16 at 21:00 IV Flush (NS 10 ml) 10 ml PRN PRN IV FLUSH LINE; Start 09/01/16 at 19:30 Triamcinolone Acetonide (Kenalog 0.025% Lotion) APPLY TO palms of hand BID TOP Last administered on 09/13/16 08:50; Admin Dose 1 APPLIC; Start 09/02/16 at 14: 30 Lactulose (Enulose) 20 gm Q8 PO Last administered on 09/13/16 06:03; Admin Dose 20 GM; Start 09/02/16 at 17:30 Metoclopramide HCl (Reglan) 10 mg Q6 IV Last administered on 09/13/16 12:19; Admin Dose 10 MG; Start 09/03/16 at 18:00 Furosemide (Lasix) 40 mg DAILY@06 PO Last administered on 09/12/16 10:13; Admin Dose 40 MG; Start 09/05/16 at 06:00 Prednisone (Prednisone) 50 mg DAILY PO Last administered on 09/13/16 08:45; Admin Dose 50 MG; Start 09/06/16 at 09:00 Nystatin (Nystatin Susp) 5 ml QID PO Last administered on 09/13/16 08:45; Admin Dose 5 ML; Start 09/05/16 at 13:00 Acetaminophen (Tylenol Tab) 325 mg Q4H PRN PO PAIN AND OR ELEVATED TEMP Last administered on 09/09/16 00:31; Admin Dose 325 MG; Start 09/07/16 at 10:00 Enoxaparin Sodium (Lovenox) 40 mg DAILY SC Last administered on 09/13/16 08:57 ; Admin Dose 40 MG; Start 09/09/16 at 09:00 Hydrophilic Base (Aquaphor Oint 454 Gm) 1 applic BID TOP Last administered on 08:49; Admin Dose 1 APPLIC; Start 09/09/16 at 13:00 Mineral Oil (Eucerin Lotion) 1 applic BID TOP Last administered on 09/13/16 08 :49; Admin Dose 1 APPLIC; Start 09/11/16 at 10:21 Magnesium Hydroxide (Milk Of Mag) 30 ml DAILY PRN PO CONSTIPATION Last administered on 09/12/16 00:09; Admin Dose 30 ML; Start 09/12/16 at 00:00 Bisacodyl (Dulcolax Supp) 10 mg DAILY PRN [place] CONSTIPATION Last administered on 09/12/16 06:38; Admin Dose 10 MG; Start 09/12/16 at 00:00 DOMINICK MCKEON MD Sep 13, 2016 13:30
[2016-09-13] MEDS ORDERED: PRED10TA PO (13:40)
--- NOTE | 2016-09-13 17:52 | CONS ---
Date/Time of Note Date/Time of Note DATE: 09/13/16 TIME: 17:50 Assessment/Plan Assessment/Plan Additional Assessment/Plan Assessment/Plan Cervical spine osteoarthritis osteopenia Left lower extremity cellulitis... Resolved Left lower extremity edema.... Resolved Chronic pain syndrome Opioid dependency Anxiety syndrome Suggest continue with current pain control, alternative forms of pain management including distraction yoga as an outpatient. Strongly suggested she goes into a [facility] environment or assisted living. Consultation Date/Type/Reason Admit Date/Time Aug 28, 2016 at 22:59 Type of Consultation: ID Exam/Review of Systems Vital Signs Vitals Vital Signs Date Time Temp Pulse Resp B/P Pulse Ox O2 Delivery O2 Flow Rate FiO2 09/13/16 08:13 98.3 92 18 124/84 96 Intake and Output 09/12/16 09/12/16 09/13/16 15:00 23:00 07:00 Intake Total 1600 ml 980 ml Balance 1600 ml 980 ml Results Results 24 hrs Laboratory Tests Test 09/13/16 11:22 Lab Scanned Report REFERENCE LAB Medications Medications Current Medications Famotidine (Pepcid) 20 mg DAILY PO Last administered on 09/13/16 08:45; Admin Dose 20 MG; Start 08/29/16 at 09:00 Thiamine HCl (Vitamin B1) 100 mg DAILY PO Last administered on 09/13/16 08:45 ; Admin Dose 100 MG; Start 08/29/16 at 09:00 Gabapentin (Neurontin) 300 mg TID PO Last administered on 09/13/16 14:02; Admin Dose 300 MG; Start 08/29/16 at 09:00 Levothyroxine Sodium (Synthroid) 150 mcg DAILY@06 PO Last administered on 06:03; Admin Dose 150 MCG; Start 08/29/16 at 06:00 Folic Acid (Folic Acid) 1 mg DAILY PO Last administered on 09/13/16 08:45; Admin Dose 1 MG; Start 08/29/16 at 09:00 Montelukast Sodium (Singulair) 10 mg HS PO Last administered on 09/12/16 20:44 ; Admin Dose 10 MG; Start 08/29/16 at 21:00 Multivitamins/ Minerals (Theragran-M) 1 tab DAILY PO Last administered on 08:45; Admin Dose 1 TAB; Start 08/29/16 at 09:00 Ondansetron HCl (Zofran Inj) 4 mg Q6H PRN IV NAUSEA AND/OR VOMITING; Start 08/29 at 00:30 Trazodone HCl (Desyrel) 50 mg HS PO Last administered on 09/08/16 22:57; Admin Dose 50 MG; Start 08/29/16 at 21:00 Venlafaxine HCl (Effexor) 150 mg DAILY PO Last administered on 09/13/16 08:45 ; Admin Dose 150 MG; Start 08/29/16 at 09:00 Venlafaxine HCl (Effexor) 75 mg HS PO Last administered on 09/12/16 20:43; Admin Dose 75 MG; Start 08/29/16 at 21:00 Prenat Multivit/ [place]/Iron/Folic Ac ( S) 1 tab DAILY PO Last administered on 09/13/16 08:45; Admin Dose 1 TAB; Start 08/29/16 at 14:30 Lactobacillus Acidophilus/ Rhamnosus (Culturelle) 1 cap BID PO Last administered on 09/13/16 08:45; Admin Dose 1 CAP; Start 08/29/16 at 14:30 Morphine Sulfate (Ms Contin (Er)) 30 mg BID PO Last administered on 09/13/16 08:44; Admin Dose 30 MG; Start 08/29/16 at 21:00; Status Future Hold Fluticasone Propionate (Flonase 0.05% Nasal) 1 spray DAILY NASAL Last administered on 09/13/16 08:48; Admin Dose 1 SPRAY; Start 08/30/16 at 13:30 Mupirocin (Bactroban) 1 applic BID TOP Last administered on 09/13/16 08:48; Admin Dose 1 APPLIC; Start 08/31/16 at 12:30 Tolterodine Tartrate (Detrol La) 2 mg QHS PO Last administered on 09/12/16 20: 43; Admin Dose 2 MG; Start 08/31/16 at 21:00 IV Flush (NS 10 ml) 10 ml PRN PRN IV FLUSH LINE; Start 09/01/16 at 19:30 Triamcinolone Acetonide (Kenalog 0.025% Lotion) APPLY TO palms of hand BID TOP Last administered on 09/13/16 08:50; Admin Dose 1 APPLIC; Start 09/02/16 at 14: 30 Lactulose (Enulose) 20 gm Q8 PO Last administered on 09/13/16 06:03; Admin Dose 20 GM; Start 09/02/16 at 17:30 Metoclopramide HCl (Reglan) 10 mg Q6 IV Last administered on 09/13/16 12:19; Admin Dose 10 MG; Start 09/03/16 at 18:00 Furosemide (Lasix) 40 mg DAILY@06 PO Last administered on 09/12/16 10:13; Admin Dose 40 MG; Start 09/05/16 at 06:00 Prednisone (Prednisone) 50 mg DAILY PO Last administered on 09/13/16 08:45; Admin Dose 50 MG; Start 09/06/16 at 09:00 Nystatin (Nystatin Susp) 5 ml QID PO Last administered on 09/13/16 14:02; Admin Dose 5 ML; Start 09/05/16 at 13:00 Acetaminophen (Tylenol Tab) 325 mg Q4H PRN PO PAIN AND OR ELEVATED TEMP Last administered on 09/09/16 00:31; Admin Dose 325 MG; Start 09/07/16 at 10:00 Enoxaparin Sodium (Lovenox) 40 mg DAILY SC Last administered on 09/13/16 08:57 ; Admin Dose 40 MG; Start 09/09/16 at 09:00 Hydrophilic Base (Aquaphor Oint 454 Gm) 1 applic BID TOP Last administered on 08:49; Admin Dose 1 APPLIC; Start 09/09/16 at 13:00 Mineral Oil (Eucerin Lotion) 1 applic BID TOP Last administered on 09/13/16 08 :49; Admin Dose 1 APPLIC; Start 09/11/16 at 10:21 Magnesium Hydroxide (Milk Of Mag) 30 ml DAILY PRN PO CONSTIPATION Last administered on 09/12/16 00:09; Admin Dose 30 ML; Start 09/12/16 at 00:00 Bisacodyl (Dulcolax Supp) 10 mg DAILY PRN [place] CONSTIPATION Last administered on 09/12/16 06:38; Admin Dose 10 MG; Start 09/12/16 at 00:00 Oxycodone HCl (Oxycontin) 30 mg Q12H PO ; Start 09/13/16 at 18:00; Status Future hold PEMBROOK,MARIA LUZ J Sep 13, 2016 17:51
[2016-09-13] MEDS ORDERED: oxyCODONE (CR) 10 MG TAB [oxyCONTIN] PO SCH ×2 (18:00→21:00)
[2016-09-13 19:28] VITALS: BP 140/90; RESP 20
[2016-09-13] MEDS ORDERED: traMADol 50 MG TAB PO PRN (19:30)
[2016-09-13] MEDS: OXYCODONE/ACETAMINOPHEN (5/325) TAB PO PRN (19:57)
[2016-09-13] MEDS: traZODone 50 MG TAB PO SCH (21:00)
[2016-09-13] MEDS: MONTELUKAST 10 MG TAB PO SCH (21:37)
[2016-09-13] MEDS: TOLTERODINE (SR) 2 MG CAP PO SCH (21:37)
[2016-09-14] MEDS: METOCLOPRAMIDE 10 MG INJ IV SCH ×3 (00:32→13:41)
[2016-09-14] MEDS: OXYCODONE/ACETAMINOPHEN (5/325) TAB PO PRN ×4 (00:33→13:41)
[2016-09-14] MEDS: LEVOTHYROXINE 150 MCG TAB PO SCH (06:36)
[2016-09-14] MEDS: LACTULOSE 30ML CUP PO SCH ×2 (06:36→13:40)
[2016-09-14] MEDS: FUROSEMIDE 40 MG TAB PO SCH (07:49)
[2016-09-14 07:52] VITALS: BP 139/94; RESP 18
[2016-09-14] MEDS: morphine (ER) 30 MG TAB PO SCH ×2 (09:00→10:33)
[2016-09-14] MEDS: FLUTICASONE 0.05% 16 GM NAS SPRAY NASAL SCH (09:08)
[2016-09-14] MEDS: NYSTATIN SUSP 5 ML CUP PO SCH ×2 (09:09→13:40)
[2016-09-14] MEDS: GABAPENTIN 300 MG CAP PO SCH ×2 (09:09→13:41)
[2016-09-14] MEDS: MULTIVITAMINS/MINERALS TAB PO SCH (09:09)
[2016-09-14] MEDS: THIAMINE 100 MG TAB PO SCH (09:09)
[2016-09-14] MEDS: MULTIVIT/MIN/FOLATE/IRON/PREN TAB PO SCH (09:10)
[2016-09-14] MEDS: predniSONE 50 MG TAB PO SCH (09:10)
[2016-09-14] MEDS: FOLIC ACID 1 MG TAB PO SCH (09:10)
[2016-09-14] MEDS: VENLAFAXINE 75 MG TABLET PO SCH (09:10)
[2016-09-14] MEDS: FAMOTIDINE 20 MG TAB PO SCH (09:11)
[2016-09-14] MEDS: LACTOBACILLUS RHAMNOSUS CAP PO SCH (09:11)
[2016-09-14] MEDS: MUPIROCIN 2% 22 GM OINT TOP SCH (09:13)
[2016-09-14] MEDS: HYDROPHILIC BASE 454 GM OINT TOP SCH (09:21)
[2016-09-14] MEDS: TRIAMCINOLONE ACET 0.025% 60 ML LOT TOP SCH (09:21)
[2016-09-14] MEDS: MINERAL OIL 240 ML LOT TOP SCH (09:21)
[2016-09-14] MEDS: ENOXAPARIN 40 MG/0.4 ML SYG SC SCH (09:26)
== END 2016-09-14 15:00 | disposition home or self-care (01) | DRG 603 ==
LOC: MS2 22:59
PROVIDERS: ADMIT Hospitalist; ATTEND Hospitalist
PROC: 02HV33Z Insertion of Infusion Device into Superior Vena Cava, Percutaneous Approach (ICD-10-PCS; principal; 2016-09-01)
PROC: 0DB28ZX Excision of Middle Esophagus, Via Natural or Artificial Opening Endoscopic, Diagnostic (ICD-10-PCS; 2016-09-03)
PROC: 0DB18ZX Excision of Upper Esophagus, Via Natural or Artificial Opening Endoscopic, Diagnostic (ICD-10-PCS; 2016-09-03)
DX: L03.116 Cellulitis of left lower limb (principal); R64 Cachexia; E46 Unspecified protein-calorie malnutrition; K70.30 Alcoholic cirrhosis of liver without ascites; K31.84 Gastroparesis; F11.20 Opioid dependence, uncomplicated; L12.9 Pemphigoid, unspecified; Z68.1 Body mass index [BMI] 19.9 or less, adult; E88.09 Other disorders of plasma-protein metabolism, not elsewhere classified; L03.115 Cellulitis of right lower limb; D64.9 Anemia, unspecified; E03.9 Hypothyroidism, unspecified; F32.9 Major depressive disorder, single episode, unspecified; F41.9 Anxiety disorder, unspecified; G89.4 Chronic pain syndrome; R23.8 Other skin changes; R60.0 Localized edema; L85.1 Acquired keratosis [keratoderma] palmaris et plantaris; L53.8 Other specified erythematous conditions; M85.88 Other specified disorders of bone density and structure, other site; M47.9 Spondylosis, unspecified; R97.0 Elevated carcinoembryonic antigen [CEA]; R23.4 Changes in skin texture; Z22.322 Carrier or suspected carrier of Methicillin resistant Staphylococcus aureus; Z98.84 Bariatric surgery status; Z87.440 Personal history of urinary (tract) infections; Z87.01 Personal history of pneumonia (recurrent); Z87.891 Personal history of nicotine dependence; Z88.0 Allergy status to penicillin; Z88.2 Allergy status to sulfonamides; Z88.8 Allergy status to other drugs, medicaments and biological substances
CPT/HCPCS: 36569; 71010; 71270; 74178; 76937; 78306; 80048; 80053; 80202; 80307; 81003; 82105; 82140; 82378; 83735; 83880; 84100; 84120; 84134; 84425; 84443; 85025; 86038; 86160; 86226; 86235; 86300; 86301; 86304; 86703; 87040; 87081; 87086; 88305; 88312; 88313; 93306; 97110; 97116; 97162; 97166; 97530; A9503; C1769; J1644; J1650; J1940; J2270; J2765; J2920; J2930; J3370; J3475; J7512; Q9967

== ENCOUNTER 2016-11-10 17:40 | Inpatient (IN) | payer OTHER ==
[~2016-11-10] VITALS: Ht 172.7 cm; Wt 57.4 kg
[~2016-11-10 17:40] MED LIST changes: -DIPHENHYDRAMINE TOP; +TOLT4CAP PO; -ZINC TOP
[2016-11-10 19:38] VITALS: Ht 172.7 cm; Wt 57.4 kg
[2016-11-10 20:02] VITALS: PULSE 100
[2016-11-10 20:21] VITALS: BP 112/85; RESP 18
[2016-11-10] MEDS ORDERED: LEVOFLOXACIN 500MG/D5W (PMX) 100 ML IVPB SCH (21:30)
[2016-11-10] MEDS ORDERED: ONDANSETRON 4 MG INJ IV PRN (21:30)
[2016-11-10] MEDS ORDERED: oxyCODONE 15 MG TAB PO PRN (23:00)
[2016-11-10] MEDS: morphine (ER) 15 MG TAB PO SCH (23:52)
[2016-11-11] VITALS (11 sets, daily range): BP systolic 113–131; BP diastolic 74–82; PULSE 98–119; RESP 16–18
[2016-11-11] MEDS: PANTOPRAZOLE (EC) 40 MG TAB PO SCH (05:43)
[2016-11-11] MEDS: LEVOTHYROXINE 150 MCG TAB PO SCH (05:43)
[2016-11-11] MEDS ORDERED: oxyCODONE (CR) 15 MG TAB [oxyCONTIN] PO SCH (06:00)
[2016-11-11] MEDS: morphine (ER) 15 MG TAB PO SCH ×3 (06:39→21:34)
[2016-11-11 07:37] LABS: ALBUMIN 1.6 g/dl (3.3-4.9); ALBUMIN/GLOBULIN RATIO 0.53; BILIRUBIN,DIRECT 0.3 mg/dl (0.00-0.20); BILIRUBIN,INDIRECT 0.9 mg/dl (0-1.1); BILIRUBIN,TOTAL 1.2 mg/dl (0.2-1.3); CALCIUM 6.8 mg/dl (8.4-10.2); CREATININE 0.93 mg/dl (0.44-1.00); MAGNESIUM 1.4 mg/dl (1.7-2.5); POTASSIUM 3.4 mmol/L (3.5-5.1); TOTAL PROTEIN 4.6 g/dl (6.1-8.1)
[2016-11-11] MEDS ORDERED: predniSONE 10 MG TAB PO SCH (09:00)
[2016-11-11] MEDS: ALBUMIN HUMAN 25% 100 ML IV SCH ×2 (09:06→18:21)
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
[2016-11-11] MEDS ORDERED: MAGNESIUM SULFATE 2 GM/50 ML 50 ML IVPB ONE ×2 (09:30→10:00)
[2016-11-11] MEDS ORDERED: LEVOFLOXACIN 500MG/D5W (PMX) 100 ML IVPB SCH ×2 (09:30→13:00)
[2016-11-11] MEDS ORDERED: METHYLPREDNISOLONE 40 MG INJ IV SCH (09:30)
[2016-11-11] MEDS ORDERED: POTASSIUM CHLORIDE 250 ML IVPB ONE ×2 (09:30→10:00)
[2016-11-11] MEDS: HEPARIN 5,000 UNIT/0.5 ML VIAL SC SCH ×2 (09:32→20:41)
[2016-11-11] MEDS: FUROSEMIDE 20 MG INJ IV SCH (09:34)
[2016-11-11] MEDS: SUCRALFATE 1 GM TAB PO SCH ×4 (09:34→20:38)
[2016-11-11] MEDS: DOCUSATE SODIUM 100 MG CAP PO SCH ×2 (09:34→20:38)
[2016-11-11] MEDS: FOLIC ACID 1 MG TAB PO SCH (09:35)
[2016-11-11] MEDS: METOPROLOL 25 MG TAB PO SCH ×2 (09:35→09:40)
[2016-11-11] MEDS: VENLAFAXINE (XR) 75 MG CAP PO SCH (09:35)
[2016-11-11] MEDS: GABAPENTIN 300 MG CAP PO SCH ×2 (09:35→20:38)
[2016-11-11] MEDS: MULTIVITAMINS THERAPEUTIC TAB PO SCH (09:36)
[2016-11-11 10:08] LABS: EOSINOPHILS % 0.5 % (0.0-7.0); HEMATOCRIT 24.9 % (37.0-47.0); HEMOGLOBIN 8.9 g/dl (12.0-16.0); LYMPHOCYTES # 1.8 10^3/ul (0.8-2.9); MEAN CORPUSCULAR HGB CONC 35.7 g/dl (32.0-37.0); MEAN CORPUSCULAR VOLUME 83.8 fl (82.0-101.0); MEAN PLATELET VOLUME 10.9 fl (7.4-10.4); MONOCYTE # 0.3 10^3/ul (0.3-0.9); MONOCYTES % 4.8 % (0.0-11.0); NEUTROPHILS % 64.2 % (39.0-77.0); PLATELET COUNT 104 10^3/UL (140-415); RED BLOOD COUNT 2.97 10^6/ul (4.20-5.40); RED CELL DISTRIBUTION WIDTH 17.2 % (11.5-14.5)
--- NOTE | 2016-11-11 10:19 | PN ---
Date/Time of Note Date/Time of Note DATE: 11/11/16 TIME: 10:12 Assessment/Plan VTE Prophylaxis VTE Prophylaxis Intervention: heparin Lines/Catheters IV Catheter Type (from Nrsg): Saline Lock Assessment/Plan Chief Complaint/Hosp Course Assessment/Plan: 46-year-old female with a past medical history of chronic pain syndrome, hypothyroidism, status post gastric bypass surgery in the past, pain and opioid dependence, depression, GERD, alcoholic liver disease, asthma presents with lower extremity redness and blistering, likely cellulitis, history of noncompliance as well. 1. Lower extremity erythema and swelling-likely secondary to cellulitis -Continue steroid and antibiotic -Continue Lasix IV -PT and OT consult 2. Headache: Head CT at the outside hospital was negative for acute processes -Pain management-we will consult 3. Hyponatremia, per outside hospital record-here is 127 Asymptomatic, monitor for now BMP every morning 4. History of alcoholic liver disease-although no cirrhosis identified on last CT scan from August 2016. Her liver disease could be a contributing factor to lower extremity swelling -Continue diuresis 5. Opioid dependency Pain management consult will be helpful here-placed -Based on prior plan of treatment for this, continue MS Contin 3 times daily only for now, follow-up final pain management consult recommendations 6. History of positive tumor markers with elevated CA 19-9, CA 125. and CEA : Patient has in the past been evaluated by oncology. CT chest/abdomen/pelvis was negative for malignancy. Colonoscopy also without finding of malignancy. -Per oncology on last admission in August 2069, no need to do additional workup and no need to order additional tumor markers, monitor for now 7. History of Gastric bypass. Continue proton pump inhibitor. 8. Chronic depression -Continue antidepressant Problems: Subjective 24 Hr Interval Summary Free Text/Dictation No acute events overnight, again patient still asking for increased pain meds. Exam/Review of Systems Vital Signs Vitals Vital Signs Date Time Temp Pulse Resp B/P Pulse Ox O2 Delivery O2 Flow Rate FiO2 11/11/16 08:47 106 11/11/16 08:47 98.7 17 113/74 97 Intake and Output 11/10/16 11/10/16 11/11/16 15:00 23:00 07:00 Intake Total 100 ml Balance 100 ml Exam Constitutional: other (Appears weak. In speaking slowly. sleepy but arousable) Head: other (There is a well-healed scar to upper forehead and frontal scalp) Neck: Supple Respiratory: clear to auscultation, normal air movement Cardiovascular: nl pulses, regular rate and rhythm Gastrointestinal: non-tender, soft Extremities: other (Bilateral upper and lower extremity erythema and pitting edema.) Results Result Diagram: 11/11/16 0821 11/11/16 0625 Results 24 hrs Laboratory Tests Test 11/11/16 06:25 11/11/16 08:21 Sodium Level 127 L Potassium Level 3.4 L Chloride Level 99 Carbon Dioxide Level 24 Anion Gap 7 L Blood Urea Nitrogen 9 Creatinine 0.93 Glucose Level 84 Calcium Level 6.8 L Phosphorus Level 3.0 Magnesium Level 1.4 L Total Bilirubin 1.2 Direct Bilirubin 0.30 H Indirect Bilirubin 0.9 Aspartate Amino Transf (AST/SGOT) 40 Alanine Aminotransferase (ALT/SGPT) 47 Alkaline Phosphatase 155 H Total Protein 4.6 L Albumin 1.6 L Globulin 3.00 Albumin/Globulin Ratio 0.53 White Blood Count 6.0 # Red Blood Count 2.97 L Hemoglobin 8.9 L Hematocrit 24.9 L Mean Corpuscular Volume 83.8 Mean Corpuscular Hemoglobin 30.0 Mean Corpuscular Hemoglobin Concent 35.7 Red Cell Distribution Width 17.2 H Platelet Count 104 #L Mean Platelet Volume 10.9 H Neutrophils % 64.2 Lymphocytes % 30.0 Monocytes % 4.8 Eosinophils % 0.5 Basophils % 0.0 Nucleated Red Blood Cells % 0.0 Neutrophils # (Manual) 4 Lymphocytes # 1.8 Monocytes # 0.3 Eosinophils # 0.0 Basophils # 0.0 Nucleated Red Blood Cells # 0.0 Medications Medications Current Medications Furosemide (Lasix) 20 mg DAILY IV Last administered on 11/11/16 09:34; Admin Dose 20 MG; Start 11/11/16 at 09:00 Ondansetron HCl (Zofran Inj) 4 mg Q6H PRN IV NAUSEA AND/OR VOMITING; Start at 21:30 Heparin Sodium (Porcine) (Heparin (5000 Units/0.5 ml)) 5,000 unit BID SC Last administered on 11/11/16 09:32; Admin Dose 5,000 UNIT; Start 11/11/16 at 09:00 Docusate Sodium (Colace) 100 mg BID PO Last administered on 11/11/16 09:34; Admin Dose 100 MG; Start 11/11/16 at 09:00 Folic Acid (Folic Acid) 1 mg DAILY PO Last administered on 11/11/16 09:35; Admin Dose 1 MG; Start 11/11/16 at 09:00 Multivitamins Therapeutic (Theragran) 1 tab DAILY PO Last administered on 09:36; Admin Dose 1 TAB; Start 11/11/16 at 09:00 Pantoprazole (Protonix Tab) 40 mg DAILY@06 PO Last administered on 11/11/16 05 :43; Admin Dose 40 MG; Start 11/11/16 at 06:00 Gabapentin (Neurontin) 300 mg BID PO Last administered on 11/11/16 09:35; Admin Dose 300 MG; Start 11/11/16 at 09:00 Levothyroxine Sodium (Synthroid) 150 mcg DAILY@06 PO Last administered on 05:43; Admin Dose 150 MCG; Start 11/11/16 at 06:00 Metoprolol Tartrate (Lopressor) 25 mg BID PO Last administered on 11/11/16 09: 35; Admin Dose 25 MG; Start 11/11/16 at 09:00 Montelukast Sodium (Singulair) 10 mg HS PO ; Start 11/11/16 at 21:00 Sucralfate (Carafate) 1 gm QID PO Last administered on 11/11/16 09:34; Admin Dose 1 GM; Start 11/11/16 at 09:00 Trazodone HCl 50 mg 50 mg HS PO ; Start 11/11/16 at 21:00 Levofloxacin/ Dextrose (Levaquin 500mg/ D5W 100 ml (Pmx)) 100 ml @ 100 mls/hr Q24H IVPB ; Start 11/11/16 at 13:00 Oxycodone HCl (Roxicodone) 15 mg TID PRN PO PAIN Last administered on 09:04; Admin Dose 15 MG; Start 11/10/16 at 23:00 Venlafaxine HCl 150 mg 150 mg DAILY PO Last administered on 11/11/16 09:35; Admin Dose 150 MG; Start 11/11/16 at 09:00 Albumin Human 100 ml @ 100 mls/hr Q8H IV Last administered on 8/20/17at 09:06 ; Admin Dose 100 MLS/HR; Start 11/11/16 at 09:00; Stop 11/12/16 at 01:59 Potassium Chloride 250 ml @ 62.5 mls/hr ONCE ONCE IVPB ; Start 11/11/16 at 10: 00; Stop 11/11/16 at 13:59 Magnesium Sulfate (Magnesium Sulfate 2 Gm/50 ml) 50 ml @ 25 mls/hr ONCE ONCE IVPB ; Start 11/11/16 at 10:00; Stop 11/11/16 at 11:59 Methylprednisolone Sodium Succinate (Solu-Medrol) 40 mg BID IV ; Start 11/11/16 at 21:00; Status UNTOSIN PRESTON Nov 11, 2016 10:19
[2016-11-11] MEDS: oxyCODONE 15 MG TAB PO PRN (18:37)
[2016-11-11] MEDS: MONTELUKAST 10 MG TAB PO SCH (20:38)
[2016-11-11] MEDS: traZODone 50 MG TAB PO SCH (20:38)
[2016-11-11] MEDS: METHYLPREDNISOLONE 40 MG INJ IV SCH (20:38)
[2016-11-12] VITALS (12 sets, daily range): BP systolic 97–116; BP diastolic 60–73; PULSE 80–97; RESP 16–18
[2016-11-12] MEDS: ALBUMIN HUMAN 25% 100 ML IV SCH (00:55)
[2016-11-12] MEDS: oxyCODONE 15 MG TAB PO PRN ×5 (00:58→22:53)
[2016-11-12] MEDS: LEVOTHYROXINE 150 MCG TAB PO SCH (05:31)
[2016-11-12] MEDS: PANTOPRAZOLE (EC) 40 MG TAB PO SCH (05:31)
[2016-11-12] MEDS: morphine (ER) 15 MG TAB PO SCH ×3 (05:32→21:24)
[2016-11-12 07:10] LABS: MAGNESIUM 1.9 mg/dl (1.7-2.5); PHOSPHORUS 3.3 mg/dl (2.5-4.9)
[2016-11-12 07:11] LABS: CALCIUM 7.7 mg/dl (8.4-10.2); CREATININE 0.79 mg/dl (0.44-1.00)
[2016-11-12 07:57] LABS: ABNORMAL IP MESSAGE 1; MEAN CORPUSCULAR HEMOGLOBIN 29.9 pg (29.0-33.0); MEAN CORPUSCULAR VOLUME 85.5 fl (82.0-101.0); MEAN PLATELET VOLUME 10.7 fl (7.4-10.4); PLATELET COUNT 80 10^3/UL (140-415); RED BLOOD COUNT 2.34 10^6/ul (4.20-5.40); RED CELL DISTRIBUTION WIDTH 17.5 % (11.5-14.5); WHITE BLOOD COUNT 7.3 10^3/ul (4.8-10.8)
[2016-11-12 07:58] LABS: POSITIVE DIFF @See below
[2016-11-12] MEDS: METHYLPREDNISOLONE 40 MG INJ IV SCH (08:49)
[2016-11-12] MEDS: MULTIVITAMINS THERAPEUTIC TAB PO SCH (08:50)
[2016-11-12] MEDS: DOCUSATE SODIUM 100 MG CAP PO SCH ×2 (08:50→20:10)
[2016-11-12] MEDS: SUCRALFATE 1 GM TAB PO SCH ×4 (08:50→20:10)
[2016-11-12] MEDS: GABAPENTIN 300 MG CAP PO SCH ×2 (08:50→20:10)
[2016-11-12] MEDS: FOLIC ACID 1 MG TAB PO SCH (08:50)
[2016-11-12] MEDS: VENLAFAXINE (XR) 75 MG CAP PO SCH (08:51)
[2016-11-12] MEDS: FUROSEMIDE 20 MG INJ IV SCH (08:59)
[2016-11-12] MEDS: METOPROLOL 25 MG TAB PO SCH ×2 (08:59→20:11)
[2016-11-12] MEDS: HEPARIN 5,000 UNIT/0.5 ML VIAL SC SCH ×2 (09:02→20:26)
[2016-11-12 10:55] LABS: ANISOCYTOSIS 3+ (0-0); EOSINOPHILS % (M) 1 % (0-7); GIANT THROMBO% (M) 2 % (0-0); HYPOCHROMASIA 1+ (0-0); MONOCYTES % (M) 1 % (0-11); PLATELET ESTIMATE DECREASED; POLYCHROMASIA 3+ (0-0)
[2016-11-12] MEDS ORDERED: hydrOXYzine HCL 25 MG TAB PO PRN (11:00)
[2016-11-12] MEDS ORDERED: ALBUTEROL/IPRATROPIUM (NEB) 3 ML AMP INH PRN (11:00)
[2016-11-12] MEDS ORDERED: DIPHENHYDRAMINE 25 MG CAP PO PRN (11:00)
[2016-11-12] MEDS: FUROSEMIDE 20 MG TAB PO SCH (11:53)
[2016-11-12] MEDS: POTASSIUM CHLORIDE 20 MEQ POWDER FOR ORAL SOLN PO SCH (11:53)
[2016-11-12] MEDS: LORAZEPAM 0.5 MG TAB PO PRN ×2 (13:00→20:10)
[2016-11-12] MEDS: LACTULOSE 30ML CUP PO SCH ×2 (14:08→21:24)
--- NOTE | 2016-11-12 18:17 | PN ---
Date/Time of Note Date/Time of Note DATE: 11/12/16 TIME: 18:13 Assessment/Plan VTE Prophylaxis VTE Prophylaxis Intervention: SCD's Lines/Catheters IV Catheter Type (from Nrsg): Saline Lock Urinary Cath still in place: Yes Reason Cath still needed: other (indicate) (will dc) Assessment/Plan Assessment/Plan 46 yo F with pmhx gastric bypass surgery, gastroparesis 2/2 vagotomy admitted for hand and foot swelling and peeling. Pt with multiple admissions for similar with extensive work up for malignancy which was negative. Given low albumin, I suspect etio is nutritional deficiency from inability to absorb nutrients from bypass surgery. PLAN [employer] services dean eval pain management cont home meds Subjective 24 Hr Interval Summary Free Text/Dictation Pt's overall condition has not much changed from when she left the hospital last Exam/Review of Systems Vital Signs Vitals Vital Signs Date Time Temp Pulse Resp B/P Pulse Ox O2 Delivery O2 Flow Rate FiO2 11/12/16 16:43 94 11/12/16 15:31 98.2 17 102/71 100 Intake and Output 11/11/16 11/11/16 11/12/16 15:00 23:00 07:00 Intake Total 250 ml 750 ml 300 ml Output Total 1500 ml 900 ml Balance 250 ml -750 ml -600 ml Exam cachectic +mild skin peeling under both eyes and around corners of pt's mouth +peeling of bl palms mild hand swelling +mild pedal edema, mild peeling on bottom of feet labs reviewed, albumin 1.6 Results Result Diagram: 11/12/16 0702 11/12/16 0531 Results 24 hrs Laboratory Tests Test 11/12/16 05:31 11/12/16 07:02 Sodium Level 133 L Potassium Level 4.0 Chloride Level 103 Carbon Dioxide Level 22 Anion Gap 12 Blood Urea Nitrogen 6 L Creatinine 0.79 Glucose Level 75 Calcium Level 7.7 L Phosphorus Level 3.3 Magnesium Level 1.9 White Blood Count 7.3 # Red Blood Count 2.34 #L Hemoglobin 7.0 #L Hematocrit 20.0 L Mean Corpuscular Volume 85.5 Mean Corpuscular Hemoglobin 29.9 Mean Corpuscular Hemoglobin Concent 35.0 Red Cell Distribution Width 17.5 H Platelet Count 80 #L Mean Platelet Volume 10.7 H Neutrophils % Segmented Neutrophils % (Manual) 83 H Lymphocytes % Lymphocytes % (Manual) 15 Monocytes % Monocytes % (Manual) 1 Eosinophils % Eosinophils % (Manual) 1 Basophils % Nucleated Red Blood Cells % 0.0 Neutrophils # (Manual) Absolute Lymphocytes (Manual) 1.0 Lymphocytes # Monocytes # Absolute Monocytes (Manual) 0.0 L Eosinophils # Basophils # Nucleated Red Blood Cells # Thrombocytosis 2 H Platelet Estimate DECREASED Polychromasia 3+ Hypochromasia 1+ Anisocytosis 3+ Macrocytosis 3+ Medications Medications Current Medications Ondansetron HCl (Zofran Inj) 4 mg Q6H PRN IV NAUSEA AND/OR VOMITING; Start at 21:30 Heparin Sodium (Porcine) (Heparin (5000 Units/0.5 ml)) 5,000 unit BID SC Last administered on 11/12/16 09:02; Admin Dose 5,000 UNIT; Start 11/11/16 at 09:00 Docusate Sodium (Colace) 100 mg BID PO Last administered on 11/12/16 08:50; Admin Dose 100 MG; Start 11/11/16 at 09:00 Folic Acid (Folic Acid) 1 mg DAILY PO Last administered on 11/12/16 08:50; Admin Dose 1 MG; Start 11/11/16 at 09:00 Multivitamins Therapeutic (Theragran) 1 tab DAILY PO Last administered on 08:50; Admin Dose 1 TAB; Start 11/11/16 at 09:00 Pantoprazole (Protonix Tab) 40 mg DAILY@06 PO Last administered on 11/12/16 05 :31; Admin Dose 40 MG; Start 11/11/16 at 06:00 Gabapentin (Neurontin) 300 mg BID PO Last administered on 11/12/16 08:50; Admin Dose 300 MG; Start 11/11/16 at 09:00 Levothyroxine Sodium (Synthroid) 150 mcg DAILY@06 PO Last administered on 05:31; Admin Dose 150 MCG; Start 11/11/16 at 06:00 Metoprolol Tartrate (Lopressor) 25 mg BID PO Last administered on 11/11/16 09: 35; Admin Dose 25 MG; Start 11/11/16 at 09:00 Montelukast Sodium (Singulair) 10 mg HS PO Last administered on 11/11/16 20:38 ; Admin Dose 10 MG; Start 11/11/16 at 21:00 Sucralfate (Carafate) 1 gm QID PO Last administered on 11/12/16 17:43; Admin Dose 1 GM; Start 11/11/16 at 09:00 Trazodone HCl (Desyrel) 50 mg HS PO Last administered on 11/11/16 20:38; Admin Dose 50 MG; Start 11/11/16 at 21:00 Venlafaxine HCl (Effexor Xr) 150 mg DAILY PO Last administered on 11/12/16 08: 51; Admin Dose 150 MG; Start 11/11/16 at 09:00 Morphine Sulfate (Ms Contin (Er)) 15 mg Q8 PO Last administered on 11/12/16 14 :08; Admin Dose 15 MG; Start 11/11/16 at 14:00 Oxycodone HCl (Roxicodone) 15 mg Q4H PRN PO PAIN LEVEL 6-10 Last administered on 11/12/16 11:57; Admin Dose 15 MG; Start 11/11/16 at 18:00 Ascorbic Acid (Vitamin C) 500 mg DAILY PO ; Start 11/13/16 at 09:00 Clobetasol Propionate (Temovate 0.05% Cr) 1 applic BID TOP ; Start 11/12/16 at 21:00 Diphenhydramine HCl (Benadryl) 25 mg Q6H PRN PO ITCHING; Start 11/12/16 at 11: 00 Furosemide (Lasix) 20 mg DAILY PO Last administered on 11/12/16 11:53; Admin Dose 20 MG; Start 11/12/16 at 11:00 Hydroxyzine HCl (Atarax) 50 mg Q6H PRN PO ITCHING; Start 11/12/16 at 11:00 Potassium Chloride (Potassium Chloride Pwd/Soln) 10 meq DAILY PO Last administered on 11/12/16 11:53; Admin Dose 10 MEQ; Start 11/12/16 at 11:30 Thiamine HCl (Vitamin B1) 100 mg DAILY PO ; Start 11/13/16 at 09:00 Tolterodine Tartrate (Detrol La) 4 mg DAILY PO ; Start 11/13/16 at 09:00 Zinc Sulfate (Zinc Sulfate) 220 mg DAILY PO ; Start 11/13/16 at 09:00 Lactulose (Enulose) 20 gm Q8 PO Last administered on 11/12/16 14:08; Admin Dose 20 GM; Start 11/12/16 at 14:00 Lorazepam (Ativan) 0.5 mg Q6H PRN PO ANXIETY Last administered on 11/12/16 13: 00; Admin Dose 0.5 MG; Start 11/12/16 at 12:30 Eye Lubricant (Artificial Tears Oph) 2 drop Q6H PRN BOTH EYES DRY EYES; Start 11/12/16 at 16:00 OLLIE YUEN MD Nov 12, 2016 18:16
[2016-11-12] MEDS: ARTIFICIAL TEARS 15 ML OPH BOTH EYES PRN (18:21)
[2016-11-12] MEDS ORDERED: ACETAMINOPHEN 325 MG TAB PO PRN (18:30)
[2016-11-12] MEDS: MONTELUKAST 10 MG TAB PO SCH (20:10)
[2016-11-12] MEDS: traZODone 50 MG TAB PO SCH (20:11)
[2016-11-12] MEDS: CLOBETASOL 0.05% 15 GM CR TOP SCH (20:11)
[2016-11-13] VITALS (12 sets, daily range): BP systolic 94–167; BP diastolic 57–92; PULSE 77–95; RESP 16–18
[2016-11-13] MEDS: LORAZEPAM 0.5 MG TAB PO PRN ×3 (02:13→17:47)
[2016-11-13] MEDS: LACTULOSE 30ML CUP PO SCH ×3 (05:06→22:00)
[2016-11-13] MEDS: LEVOTHYROXINE 150 MCG TAB PO SCH (05:06)
[2016-11-13] MEDS: PANTOPRAZOLE (EC) 40 MG TAB PO SCH (05:06)
[2016-11-13] MEDS: morphine (ER) 15 MG TAB PO SCH ×3 (05:06→22:27)
[2016-11-13 07:05] LABS: EOSINOPHILS # 0.2 10^3/ul (0.0-0.5); EOSINOPHILS % 1.9 % (0.0-7.0); HEMATOCRIT 22.1 % (37.0-47.0); HEMOGLOBIN 7.5 g/dl (12.0-16.0); LYMPHOCYTES # 4.3 10^3/ul (0.8-2.9); LYMPHOCYTES % 43.9 % (15.0-51.0); MEAN CORPUSCULAR HEMOGLOBIN 30.1 pg (29.0-33.0); MEAN CORPUSCULAR HGB CONC 33.9 g/dl (32.0-37.0); MEAN CORPUSCULAR VOLUME 88.8 fl (82.0-101.0); MEAN PLATELET VOLUME 11.2 fl (7.4-10.4); MONOCYTE # 0.4 10^3/ul (0.3-0.9); MONOCYTES % 3.8 % (0.0-11.0); NEUTROPHILS % 49.9 % (39.0-77.0); PLATELET COUNT 123 10^3/UL (140-415); RED BLOOD COUNT 2.49 10^6/ul (4.20-5.40); RED CELL DISTRIBUTION WIDTH 18.4 % (11.5-14.5); WHITE BLOOD COUNT 9.8 10^3/ul (4.8-10.8)
[2016-11-13 07:25] LABS: CALCIUM 7.6 mg/dl (8.4-10.2); CREATININE 0.71 mg/dl (0.44-1.00); POTASSIUM 3.4 mmol/L (3.5-5.1)
[2016-11-13] MEDS ORDERED: predniSONE 10 MG TAB PO SCH (09:00)
[2016-11-13] MEDS: TOLTERODINE (SR) 4 MG CAP PO SCH (09:00)
[2016-11-13] MEDS: DOCUSATE SODIUM 100 MG CAP PO SCH ×2 (09:00→20:56)
[2016-11-13] MEDS: VENLAFAXINE (XR) 75 MG CAP PO SCH (09:00)
[2016-11-13] MEDS: METOPROLOL 25 MG TAB PO SCH ×2 (09:00→20:56)
[2016-11-13] MEDS: SUCRALFATE 1 GM TAB PO SCH ×4 (09:00→20:36)
[2016-11-13] MEDS: FOLIC ACID 1 MG TAB PO SCH (09:01)
[2016-11-13] MEDS: FUROSEMIDE 20 MG TAB PO SCH (09:02)
[2016-11-13] MEDS: THIAMINE 100 MG TAB PO SCH (09:03)
[2016-11-13] MEDS: POTASSIUM CHLORIDE 20 MEQ POWDER FOR ORAL SOLN PO SCH (09:03)
[2016-11-13] MEDS: MULTIVITAMINS THERAPEUTIC TAB PO SCH (09:03)
[2016-11-13] MEDS: ZINC SULFATE 220 MG CAP PO SCH (09:04)
[2016-11-13] MEDS: ASCORBIC ACID 500 MG TAB PO SCH (09:04)
[2016-11-13] MEDS: GABAPENTIN 300 MG CAP PO SCH ×2 (09:05→20:42)
[2016-11-13] MEDS: ARTIFICIAL TEARS 15 ML OPH BOTH EYES PRN (09:06)
[2016-11-13] MEDS: CLOBETASOL 0.05% 15 GM CR TOP SCH ×2 (09:06→20:42)
[2016-11-13] MEDS: oxyCODONE 15 MG TAB PO PRN ×3 (09:08→20:42)
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
[2016-11-13] MEDS: HEPARIN 5,000 UNIT/0.5 ML VIAL SC SCH ×2 (09:26→20:56)
[2016-11-13] MEDS ORDERED: POTASSIUM CHLORIDE (SR) 20 MEQ TAB PO STA (12:51)
[2016-11-13] MEDS ORDERED: VITAMIN B COMPLEX/VIT C CAP PO ONE (14:00)
--- NOTE | 2016-11-13 15:39 | PN ---
Date/Time of Note Date/Time of Note DATE: 11/13/16 TIME: 15:34 Assessment/Plan VTE Prophylaxis VTE Prophylaxis Intervention: SCD's Lines/Catheters IV Catheter Type (from Nrsg): Saline Lock Urinary Cath still in place: Yes Reason Cath still needed: other (indicate) Assessment/Plan Assessment/Plan 46 yo F with pmhx gastric bypass surgery, gastroparesis 2/2 vagotomy admitted for hand and foot swelling and peeling. Pt with multiple admissions for similar with extensive work up for malignancy which was negative. 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 Pt with [facility] in January read as possibly IBD on biopsy however this was not seen on f/u [facility] in the spring. Will talk to pt tomorrow about if she is seeing GI as outpatient, consider inpatient endoscopy to eval for etio of ?enteropathy? v malabsorption Subjective 24 Hr Interval Summary Free Text/Dictation Pt states prior to admission she was living with her parents but might benefit from some help at home Exam/Review of Systems Vital Signs Vitals Vital Signs Date Time Temp Pulse Resp B/P Pulse Ox O2 Delivery O2 Flow Rate FiO2 11/13/16 12:39 95 11/13/16 12:15 98.6 16 107/79 100 Intake and Output 11/12/16 11/12/16 11/13/16 15:00 23:00 07:00 Intake Total 700 ml Output Total 600 ml Balance 100 ml Exam facial peeling marginally improved no mrg lungs clear abd soft +temporal wasting Results Result Diagram: 11/13/16 0637 11/13/16 0637 Results 24 hrs Laboratory Tests Test 11/12/16 18:38 11/12/16 18:44 11/13/16 06:37 Ammonia 29 Prealbumin 5.1 L White Blood Count 9.8 # Red Blood Count 2.49 L Hemoglobin 7.5 L Hematocrit 22.1 L Mean Corpuscular Volume 88.8 Mean Corpuscular Hemoglobin 30.1 Mean Corpuscular Hemoglobin Concent 33.9 Red Cell Distribution Width 18.4 H Platelet Count 123 #L Mean Platelet Volume 11.2 H Neutrophils % 49.9 Lymphocytes % 43.9 Monocytes % 3.8 Eosinophils % 1.9 Basophils % 0.0 Nucleated Red Blood Cells % 0.0 Neutrophils # (Manual) 5 Lymphocytes # 4.3 H Monocytes # 0.4 Eosinophils # 0.2 Basophils # 0.0 Nucleated Red Blood Cells # 0.0 Sodium Level 133 L Potassium Level 3.4 L Chloride Level 99 Carbon Dioxide Level 27 Anion Gap 10 Blood Urea Nitrogen 5 L Creatinine 0.71 Glucose Level 88 Calcium Level 7.6 L Medications Medications Current Medications Ondansetron HCl (Zofran Inj) 4 mg Q6H PRN IV NAUSEA AND/OR VOMITING; Start at 21:30 Heparin Sodium (Porcine) (Heparin (5000 Units/0.5 ml)) 5,000 unit BID SC Last administered on 11/13/16 09:26; Admin Dose 5,000 UNIT; Start 11/11/16 at 09:00 Docusate Sodium (Colace) 100 mg BID PO Last administered on 11/12/16 20:10; Admin Dose 100 MG; Start 11/11/16 at 09:00 Folic Acid (Folic Acid) 1 mg DAILY PO Last administered on 11/13/16 09:01; Admin Dose 1 MG; Start 11/11/16 at 09:00 Multivitamins Therapeutic (Theragran) 1 tab DAILY PO Last administered on 09:03; Admin Dose 1 TAB; Start 11/11/16 at 09:00 Pantoprazole (Protonix Tab) 40 mg DAILY@06 PO Last administered on 11/13/16 05 :06; Admin Dose 40 MG; Start 11/11/16 at 06:00 Gabapentin (Neurontin) 300 mg BID PO Last administered on 11/13/16 09:05; Admin Dose 300 MG; Start 11/11/16 at 09:00 Levothyroxine Sodium (Synthroid) 150 mcg DAILY@06 PO Last administered on 05:06; Admin Dose 150 MCG; Start 11/11/16 at 06:00 Metoprolol Tartrate (Lopressor) 25 mg BID PO Last administered on 11/11/16 09: 35; Admin Dose 25 MG; Start 11/11/16 at 09:00 Montelukast Sodium (Singulair) 10 mg HS PO Last administered on 11/12/16 20:10 ; Admin Dose 10 MG; Start 11/11/16 at 21:00 Sucralfate (Carafate) 1 gm QID PO Last administered on 11/13/16 13:17; Admin Dose 1 GM; Start 11/11/16 at 09:00 Trazodone HCl (Desyrel) 50 mg HS PO Last administered on 11/11/16 20:38; Admin Dose 50 MG; Start 11/11/16 at 21:00 Venlafaxine HCl (Effexor Xr) 150 mg DAILY PO Last administered on 11/13/16 09: 00; Admin Dose 150 MG; Start 11/11/16 at 09:00 Morphine Sulfate (Ms Contin (Er)) 15 mg Q8 PO Last administered on 11/13/16 13 :20; Admin Dose 15 MG; Start 11/11/16 at 14:00 Oxycodone HCl (Roxicodone) 15 mg Q4H PRN PO PAIN LEVEL 6-10 Last administered on 11/13/16 15:30; Admin Dose 15 MG; Start 11/11/16 at 18:00 Ascorbic Acid (Vitamin C) 500 mg DAILY PO Last administered on 11/13/16 09:04 ; Admin Dose 500 MG; Start 11/13/16 at 09:00 Clobetasol Propionate (Temovate 0.05% Cr) 1 applic BID TOP Last administered on 11/13/16 09:06; Admin Dose 1 APPLIC; Start 11/12/16 at 21:00 Diphenhydramine HCl (Benadryl) 25 mg Q6H PRN PO ITCHING; Start 11/12/16 at 11: 00 Furosemide (Lasix) 20 mg DAILY PO Last administered on 11/13/16 09:02; Admin Dose 20 MG; Start 11/12/16 at 11:00 Hydroxyzine HCl (Atarax) 50 mg Q6H PRN PO ITCHING; Start 11/12/16 at 11:00 Potassium Chloride (Potassium Chloride Pwd/Soln) 10 meq DAILY PO Last administered on 11/13/16 09:03; Admin Dose 10 MEQ; Start 11/12/16 at 11:30 Thiamine HCl (Vitamin B1) 100 mg DAILY PO Last administered on 11/13/16 09:03 ; Admin Dose 100 MG; Start 11/13/16 at 09:00 Tolterodine Tartrate (Detrol La) 4 mg DAILY PO ; Start 11/13/16 at 09:00 Zinc Sulfate (Zinc Sulfate) 220 mg DAILY PO Last administered on 11/13/16 09: 04; Admin Dose 220 MG; Start 11/13/16 at 09:00 Lactulose (Enulose) 20 gm Q8 PO Last administered on 11/13/16 14:24; Admin Dose 20 GM; Start 11/12/16 at 14:00 Lorazepam (Ativan) 0.5 mg Q6H PRN PO ANXIETY Last administered on 11/13/16 11: 01; Admin Dose 0.5 MG; Start 11/12/16 at 12:30 Eye Lubricant (Artificial Tears Oph) 2 drop Q6H PRN BOTH EYES DRY EYES Last administered on 11/13/16 09:06; Admin Dose 2 DROP; Start 11/12/16 at 16:00 Acetaminophen (Tylenol Tab) 325 mg Q4H PRN PO PAIN AND OR ELEVATED TEMP; Start 11/12/16 at 18:30 Vitamin B Complex/ Vitamin C (Ber[place]ca) 1 cap DAILY PO ; Start 11/14/16 at 09:00 OLLIE YUEN MD Nov 13, 2016 15:39
[2016-11-13] MEDS: MONTELUKAST 10 MG TAB PO SCH (20:35)
[2016-11-13] MEDS: traZODone 50 MG TAB PO SCH (21:00)
[2016-11-14 02:33] VITALS: BP 93/68; RESP 18
[2016-11-14] MEDS: oxyCODONE 15 MG TAB PO PRN ×5 (02:46→21:25)
[2016-11-14] MEDS: LACTULOSE 30ML CUP PO SCH ×3 (05:59→22:00)
[2016-11-14] MEDS: PANTOPRAZOLE (EC) 40 MG TAB PO SCH (05:59)
[2016-11-14] MEDS: LEVOTHYROXINE 150 MCG TAB PO SCH (05:59)
[2016-11-14] MEDS: morphine (ER) 15 MG TAB PO SCH ×3 (05:59→23:56)
[2016-11-14 06:01] VITALS: BP 107/82; PULSE 96
[2016-11-14 06:09] LABS: BASOPHILS % 0.1 % (0.0-2.0); EOSINOPHILS # 0.3 10^3/ul (0.0-0.5); EOSINOPHILS % 3.9 % (0.0-7.0); HEMATOCRIT 25.9 % (37.0-47.0); HEMOGLOBIN 8.7 g/dl (12.0-16.0); LYMPHOCYTES % 44.5 % (15.0-51.0); MEAN CORPUSCULAR HGB CONC 33.6 g/dl (32.0-37.0); MEAN CORPUSCULAR VOLUME 89.3 fl (82.0-101.0); MONOCYTE # 0.2 10^3/ul (0.3-0.9); MONOCYTES % 3.6 % (0.0-11.0); NEUTROPHILS % 47.6 % (39.0-77.0); PLATELET COUNT 114 10^3/UL (140-415); RED CELL DISTRIBUTION WIDTH 18.5 % (11.5-14.5); WHITE BLOOD COUNT 6.7 10^3/ul (4.8-10.8)
[2016-11-14 06:33] LABS: POSITIVE DIFF @See below
[2016-11-14 06:39] LABS: CALCIUM 7.2 mg/dl (8.4-10.2); CREATININE 0.6 mg/dl (0.44-1.00); POTASSIUM 4.1 mmol/L (3.5-5.1)
[2016-11-14] MEDS: LORAZEPAM 0.5 MG TAB PO PRN ×3 (07:41→20:07)
[2016-11-14 08:12] VITALS: BP 108/81; RESP 18
[2016-11-14] MEDS: VITAMIN B COMPLEX/VIT C CAP PO SCH (08:58)
[2016-11-14] MEDS: POTASSIUM CHLORIDE 20 MEQ POWDER FOR ORAL SOLN PO SCH (08:58)
[2016-11-14] MEDS: ASCORBIC ACID 500 MG TAB PO SCH (08:58)
[2016-11-14] MEDS: MULTIVITAMINS THERAPEUTIC TAB PO SCH (08:58)
[2016-11-14] MEDS: ZINC SULFATE 220 MG CAP PO SCH (08:58)
[2016-11-14] MEDS: GABAPENTIN 300 MG CAP PO SCH ×2 (08:59→20:07)
[2016-11-14] MEDS: DOCUSATE SODIUM 100 MG CAP PO SCH ×2 (08:59→20:08)
[2016-11-14] MEDS: METOPROLOL 25 MG TAB PO SCH ×2 (08:59→20:08)
[2016-11-14] MEDS: FUROSEMIDE 20 MG TAB PO SCH (08:59)
[2016-11-14] MEDS: VENLAFAXINE (XR) 75 MG CAP PO SCH (09:00)
[2016-11-14] MEDS: THIAMINE 100 MG TAB PO SCH (09:00)
[2016-11-14] MEDS: SUCRALFATE 1 GM TAB PO SCH ×4 (09:00→20:07)
[2016-11-14] MEDS: FOLIC ACID 1 MG TAB PO SCH (09:00)
[2016-11-14] MEDS: HEPARIN 5,000 UNIT/0.5 ML VIAL SC SCH ×2 (09:44→20:09)
[2016-11-14] MEDS: TOLTERODINE (SR) 4 MG CAP PO SCH (10:01)
[2016-11-14] MEDS: CLOBETASOL 0.05% 15 GM CR TOP SCH ×2 (11:46→20:07)
--- NOTE | 2016-11-14 14:09 | PN ---
Date/Time of Note Date/Time of Note DATE: 11/14/16 TIME: 14:07 Assessment/Plan VTE Prophylaxis VTE Prophylaxis Intervention: SCD's Lines/Catheters IV Catheter Type (from Nrsg): Saline Lock Urinary Cath still in place: Yes Reason Cath still needed: other (indicate) (dc'ed previously) Assessment/Plan Assessment/Plan 46 yo F with pmhx gastric bypass surgery, gastroparesis 2/2 vagotomy admitted for hand and foot swelling and peeling. Pt with multiple admissions for similar with extensive work up for malignancy which was negative. 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 Pt with CScope in January read as possibly IBD on biopsy however this was not seen on f/u CScope in the spring. Will talk to pt about if she is seeing GI as outpatient, consider inpatient endoscopy to eval for etio of ?enteropathy? v malabsorption Subjective 24 Hr Interval Summary Free Text/Dictation facial peeling improving Exam/Review of Systems Vital Signs Vitals Vital Signs Date Time Temp Pulse Resp B/P Pulse Ox O2 Delivery O2 Flow Rate FiO2 11/14/16 08:12 97.7 94 18 108/81 98 11/13/16 15:55 Room Air Intake and Output 11/13/16 11/13/16 11/14/16 15:00 23:00 07:00 Intake Total 740 ml 800 ml Output Total 1550 ml 653 ml Balance -810 ml 147 ml Exam nad no mrg lungs clear abd soft facial peeling improving, arm peeling still present Results Result Diagram: 11/14/16 0537 11/14/16 0537 Results 24 hrs Laboratory Tests Test 11/14/16 05:37 White Blood Count 6.7 # Red Blood Count 2.90 L Hemoglobin 8.7 L Hematocrit 25.9 L Mean Corpuscular Volume 89.3 Mean Corpuscular Hemoglobin 30.0 Mean Corpuscular Hemoglobin Concent 33.6 Red Cell Distribution Width 18.5 H Platelet Count 114 L Mean Platelet Volume 11.0 H Neutrophils % 47.6 Lymphocytes % 44.5 Monocytes % 3.6 Eosinophils % 3.9 Basophils % 0.1 Nucleated Red Blood Cells % 0.0 Neutrophils # (Manual) 3 Lymphocytes # 3.0 H Monocytes # 0.2 L Eosinophils # 0.3 Basophils # 0.0 Nucleated Red Blood Cells # 0.0 Sodium Level 131 L Potassium Level 4.1 Chloride Level 99 Carbon Dioxide Level 30 Anion Gap 6 L Blood Urea Nitrogen 4 L Creatinine 0.60 Glucose Level 62 #L Calcium Level 7.2 L Medications Medications Current Medications Ondansetron HCl (Zofran Inj) 4 mg Q6H PRN IV NAUSEA AND/OR VOMITING; Start at 21:30 Heparin Sodium (Porcine) (Heparin (5000 Units/0.5 ml)) 5,000 unit BID SC Last administered on 11/14/16 09:44; Admin Dose 5,000 UNIT; Start 11/11/16 at 09:00 Docusate Sodium (Colace) 100 mg BID PO Last administered on 11/12/16 20:10; Admin Dose 100 MG; Start 11/11/16 at 09:00 Folic Acid (Folic Acid) 1 mg DAILY PO Last administered on 11/14/16 09:00; Admin Dose 1 MG; Start 11/11/16 at 09:00 Multivitamins Therapeutic (Theragran) 1 tab DAILY PO Last administered on 08:58; Admin Dose 1 TAB; Start 11/11/16 at 09:00 Pantoprazole (Protonix Tab) 40 mg DAILY@06 PO Last administered on 11/14/16 05 :59; Admin Dose 40 MG; Start 11/11/16 at 06:00 Gabapentin (Neurontin) 300 mg BID PO Last administered on 11/14/16 08:59; Admin Dose 300 MG; Start 11/11/16 at 09:00 Levothyroxine Sodium (Synthroid) 150 mcg DAILY@06 PO Last administered on 05:59; Admin Dose 150 MCG; Start 11/11/16 at 06:00 Metoprolol Tartrate (Lopressor) 25 mg BID PO Last administered on 11/11/16 09: 35; Admin Dose 25 MG; Start 11/11/16 at 09:00 Montelukast Sodium (Singulair) 10 mg HS PO Last administered on 11/13/16 20:35 ; Admin Dose 10 MG; Start 11/11/16 at 21:00 Sucralfate (Carafate) 1 gm QID PO Last administered on 11/14/16 14:00; Admin Dose 1 GM; Start 11/11/16 at 09:00 Trazodone HCl (Desyrel) 50 mg HS PO Last administered on 11/11/16 20:38; Admin Dose 50 MG; Start 11/11/16 at 21:00 Venlafaxine HCl (Effexor Xr) 150 mg DAILY PO Last administered on 11/14/16 09: 00; Admin Dose 150 MG; Start 11/11/16 at 09:00 Morphine Sulfate (Ms Contin (Er)) 15 mg Q8 PO Last administered on 11/14/16 14 :00; Admin Dose 15 MG; Start 11/11/16 at 14:00 Oxycodone HCl (Roxicodone) 15 mg Q4H PRN PO PAIN LEVEL 6-10 Last administered on 11/14/16 11:46; Admin Dose 15 MG; Start 11/11/16 at 18:00 Ascorbic Acid (Vitamin C) 500 mg DAILY PO Last administered on 11/14/16 08:58 ; Admin Dose 500 MG; Start 11/13/16 at 09:00 Clobetasol Propionate (Temovate 0.05% Cr) 1 applic BID TOP Last administered on 11/14/16 11:46; Admin Dose 1 APPLIC; Start 11/12/16 at 21:00 Diphenhydramine HCl (Benadryl) 25 mg Q6H PRN PO ITCHING; Start 11/12/16 at 11: 00 Furosemide (Lasix) 20 mg DAILY PO Last administered on 11/14/16 08:59; Admin Dose 20 MG; Start 11/12/16 at 11:00 Hydroxyzine HCl (Atarax) 50 mg Q6H PRN PO ITCHING; Start 11/12/16 at 11:00 Potassium Chloride (Potassium Chloride Pwd/Soln) 10 meq DAILY PO Last administered on 11/14/16 08:58; Admin Dose 10 MEQ; Start 11/12/16 at 11:30 Thiamine HCl (Vitamin B1) 100 mg DAILY PO Last administered on 11/14/16 09:00 ; Admin Dose 100 MG; Start 11/13/16 at 09:00 Tolterodine Tartrate (Detrol La) 4 mg DAILY PO Last administered on 11/14/16 10:01; Admin Dose 4 MG; Start 11/13/16 at 09:00 Zinc Sulfate (Zinc Sulfate) 220 mg DAILY PO Last administered on 11/14/16 08: 58; Admin Dose 220 MG; Start 11/13/16 at 09:00 Lactulose (Enulose) 20 gm Q8 PO Last administered on 11/14/16 14:00; Admin Dose 20 GM; Start 11/12/16 at 14:00 Lorazepam (Ativan) 0.5 mg Q6H PRN PO ANXIETY Last administered on 11/14/16 14: 00; Admin Dose 0.5 MG; Start 11/12/16 at 12:30 Eye Lubricant (Artificial Tears Oph) 2 drop Q6H PRN BOTH EYES DRY EYES Last administered on 11/13/16 09:06; Admin Dose 2 DROP; Start 11/12/16 at 16:00 Acetaminophen (Tylenol Tab) 325 mg Q4H PRN PO PAIN AND OR ELEVATED TEMP; Start 11/12/16 at 18:30 Vitamin B Complex/ Vitamin C (Berocca) 1 cap DAILY PO Last administered on 11/14 08:58; Admin Dose 1 CAP; Start 11/14/16 at 09:00 OLLIE YUEN MD Nov 14, 2016 14:09
[2016-11-14 16:24] VITALS: BP 100/65; RESP 18
[2016-11-14] MEDS: EUCERIN 113 GM CR TOP SCH ×2 (17:19→21:25)
[2016-11-14 19:49] VITALS: BP 91/64; RESP 20
[2016-11-14 20:05] VITALS: BP 97/70
[2016-11-14] MEDS: MONTELUKAST 10 MG TAB PO SCH (20:07)
[2016-11-14] MEDS: traZODone 50 MG TAB PO SCH (21:00)
[2016-11-15 02:00] VITALS: BP 94/62; RESP 20
[2016-11-15] MEDS: morphine (ER) 15 MG TAB PO SCH ×4 (06:00→21:12)
[2016-11-15] MEDS: PANTOPRAZOLE (EC) 40 MG TAB PO SCH (06:00)
[2016-11-15] MEDS: LACTULOSE 30ML CUP PO SCH ×3 (06:00→21:12)
[2016-11-15] MEDS: LEVOTHYROXINE 150 MCG TAB PO SCH (06:00)
[2016-11-15 06:08] LABS: BASOPHILS % 0.1 % (0.0-2.0); EOSINOPHILS # 0.2 10^3/ul (0.0-0.5); EOSINOPHILS % 3.2 % (0.0-7.0); HEMATOCRIT 24.9 % (37.0-47.0); HEMOGLOBIN 8.2 g/dl (12.0-16.0); LYMPHOCYTES # 3.4 10^3/ul (0.8-2.9); LYMPHOCYTES % 47.9 % (15.0-51.0); MEAN CORPUSCULAR HEMOGLOBIN 29.6 pg (29.0-33.0); MEAN CORPUSCULAR HGB CONC 32.9 g/dl (32.0-37.0); MEAN CORPUSCULAR VOLUME 89.9 fl (82.0-101.0); MEAN PLATELET VOLUME 11.4 fl (7.4-10.4); MONOCYTE # 0.3 10^3/ul (0.3-0.9); MONOCYTES % 3.8 % (0.0-11.0); NEUTROPHILS % 44.7 % (39.0-77.0); PLATELET COUNT 131 10^3/UL (140-415); RED BLOOD COUNT 2.77 10^6/ul (4.20-5.40); RED CELL DISTRIBUTION WIDTH 18.6 % (11.5-14.5); WHITE BLOOD COUNT 7.1 10^3/ul (4.8-10.8)
[2016-11-15 06:47] LABS: CREATININE 0.57 mg/dl (0.44-1.00); POTASSIUM 3.9 mmol/L (3.5-5.1)
[2016-11-15 06:50] VITALS: BP 88/58; PULSE 86
[2016-11-15] MEDS ORDERED: SOD CHLORIDE 0.9% 500 ML IV ONE (07:00)
[2016-11-15 07:43] VITALS: BP 87/55; RESP 20
[2016-11-15] MEDS: METOPROLOL 25 MG TAB PO SCH ×2 (09:00→21:00)
[2016-11-15] MEDS: CLOBETASOL 0.05% 15 GM CR TOP SCH ×2 (09:31→21:21)
[2016-11-15] MEDS: NYSTATIN 30 GM POWDER BTL TOP SCH (09:31)
[2016-11-15] MEDS: VITAMIN B COMPLEX/VIT C CAP PO SCH (09:32)
[2016-11-15] MEDS: ASCORBIC ACID 500 MG TAB PO SCH (09:32)
[2016-11-15] MEDS: THIAMINE 100 MG TAB PO SCH (09:32)
[2016-11-15] MEDS: ZINC SULFATE 220 MG CAP PO SCH (09:32)
[2016-11-15] MEDS: VENLAFAXINE (XR) 75 MG CAP PO SCH (09:32)
[2016-11-15] MEDS: MULTIVITAMINS THERAPEUTIC TAB PO SCH (09:32)
[2016-11-15] MEDS: FOLIC ACID 1 MG TAB PO SCH (09:33)
[2016-11-15] MEDS: FUROSEMIDE 20 MG TAB PO SCH (09:33)
[2016-11-15] MEDS: DOCUSATE SODIUM 100 MG CAP PO SCH ×2 (09:33→21:00)
[2016-11-15] MEDS: TOLTERODINE (SR) 4 MG CAP PO SCH (09:33)
[2016-11-15] MEDS: SUCRALFATE 1 GM TAB PO SCH ×4 (09:33→21:00)
[2016-11-15] MEDS: GABAPENTIN 300 MG CAP PO SCH ×2 (09:33→21:00)
[2016-11-15] MEDS: EUCERIN 113 GM CR TOP SCH ×2 (09:38→21:21)
[2016-11-15] MEDS: POTASSIUM CHLORIDE 20 MEQ POWDER FOR ORAL SOLN PO SCH (09:42)
[2016-11-15] MEDS: HEPARIN 5,000 UNIT/0.5 ML VIAL SC SCH ×2 (09:58→21:20)
[2016-11-15] MEDS: LORAZEPAM 0.5 MG TAB PO PRN ×2 (10:42→17:03)
[2016-11-15] MEDS: oxyCODONE 15 MG TAB PO PRN ×3 (12:34→22:40)
[2016-11-15 14:23] VITALS: BP 114/78; RESP 18
--- NOTE | 2016-11-15 15:21 | PN ---
Date/Time of Note Date/Time of Note DATE: 11/15/16 TIME: 15:19 Assessment/Plan VTE Prophylaxis VTE Prophylaxis Intervention: SCD's Lines/Catheters IV Catheter Type (from Nrsg): Saline Lock Urinary Cath still in place: Yes Reason Cath still needed: other (indicate) (pt refusing removal) Assessment/Plan Assessment/Plan 46 yo F with pmhx gastric bypass surgery, gastroparesis 2/2 vagotomy admitted for hand and foot swelling and peeling. Pt with multiple admissions for similar with extensive work up for malignancy which was negative. 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 Pt with CScope in January read as possibly IBD on biopsy however this was not seen on f/u CScope in the spring. Will talk to pt about if she is seeing GI as outpatient, consider outpatient endoscopy to eval for etio of ?enteropathy? v malabsorption Subjective 24 Hr Interval Summary Free Text/Dictation Pt reports LE swelling has resolved. Exam/Review of Systems Vital Signs Vitals Vital Signs Date Time Temp Pulse Resp B/P Pulse Ox O2 Delivery O2 Flow Rate FiO2 11/15/16 14:23 97.4 83 18 114/78 99 11/13/16 15:55 Room Air Intake and Output 11/14/16 11/14/16 11/15/16 15:00 23:00 07:00 Intake Total 1000 ml 300 ml Output Total 1700 ml 500 ml Balance -700 ml -200 ml Exam cachectic no mrg lungs clear abd soft hand edema improving Results Result Diagram: 11/15/16 0536 11/15/16 0536 Results 24 hrs Laboratory Tests Test 11/15/16 05:36 White Blood Count 7.1 Red Blood Count 2.77 L Hemoglobin 8.2 L Hematocrit 24.9 L Mean Corpuscular Volume 89.9 Mean Corpuscular Hemoglobin 29.6 Mean Corpuscular Hemoglobin Concent 32.9 Red Cell Distribution Width 18.6 H Platelet Count 131 L Mean Platelet Volume 11.4 H Neutrophils % 44.7 Lymphocytes % 47.9 Monocytes % 3.8 Eosinophils % 3.2 Basophils % 0.1 Nucleated Red Blood Cells % 0.0 Neutrophils # (Manual) 3 Lymphocytes # 3.4 H Monocytes # 0.3 Eosinophils # 0.2 Basophils # 0.0 Nucleated Red Blood Cells # 0.0 Sodium Level 133 L Potassium Level 3.9 Chloride Level 97 Carbon Dioxide Level 32 H Anion Gap 8 Blood Urea Nitrogen 5 L Creatinine 0.57 Glucose Level 77 Calcium Level 7.0 L Medications Medications Current Medications Ondansetron HCl (Zofran Inj) 4 mg Q6H PRN IV NAUSEA AND/OR VOMITING; Start at 21:30 Heparin Sodium (Porcine) (Heparin (5000 Units/0.5 ml)) 5,000 unit BID SC Last administered on 11/15/16 09:58; Admin Dose 5,000 UNIT; Start 11/11/16 at 09:00 Docusate Sodium (Colace) 100 mg BID PO Last administered on 11/15/16 09:33; Admin Dose 100 MG; Start 11/11/16 at 09:00 Folic Acid (Folic Acid) 1 mg DAILY PO Last administered on 11/15/16 09:33; Admin Dose 1 MG; Start 11/11/16 at 09:00 Multivitamins Therapeutic (Theragran) 1 tab DAILY PO Last administered on 09:32; Admin Dose 1 TAB; Start 11/11/16 at 09:00 Pantoprazole (Protonix Tab) 40 mg DAILY@06 PO Last administered on 11/14/16 05 :59; Admin Dose 40 MG; Start 11/11/16 at 06:00 Gabapentin (Neurontin) 300 mg BID PO Last administered on 11/15/16 09:33; Admin Dose 300 MG; Start 11/11/16 at 09:00 Levothyroxine Sodium (Synthroid) 150 mcg DAILY@06 PO Last administered on 05:59; Admin Dose 150 MCG; Start 11/11/16 at 06:00 Metoprolol Tartrate (Lopressor) 25 mg BID PO Last administered on 11/11/16 09: 35; Admin Dose 25 MG; Start 11/11/16 at 09:00 Montelukast Sodium (Singulair) 10 mg HS PO Last administered on 11/14/16 20:07 ; Admin Dose 10 MG; Start 11/11/16 at 21:00 Sucralfate (Carafate) 1 gm QID PO Last administered on 11/15/16 12:34; Admin Dose 1 GM; Start 11/11/16 at 09:00 Trazodone HCl (Desyrel) 50 mg HS PO Last administered on 11/11/16 20:38; Admin Dose 50 MG; Start 11/11/16 at 21:00 Venlafaxine HCl (Effexor Xr) 150 mg DAILY PO Last administered on 11/15/16 09: 32; Admin Dose 150 MG; Start 11/11/16 at 09:00 Morphine Sulfate (Ms Contin (Er)) 15 mg Q8 PO Last administered on 11/15/16 09 :30; Admin Dose 15 MG; Start 11/11/16 at 14:00 Oxycodone HCl (Roxicodone) 15 mg Q4H PRN PO PAIN LEVEL 6-10 Last administered on 11/15/16 12:34; Admin Dose 15 MG; Start 11/11/16 at 18:00 Ascorbic Acid (Vitamin C) 500 mg DAILY PO Last administered on 11/15/16 09:32 ; Admin Dose 500 MG; Start 11/13/16 at 09:00 Clobetasol Propionate (Temovate 0.05% Cr) 1 applic BID TOP Last administered on 11/15/16 09:31; Admin Dose 1 APPLIC; Start 11/12/16 at 21:00 Diphenhydramine HCl (Benadryl) 25 mg Q6H PRN PO ITCHING; Start 11/12/16 at 11: 00 Furosemide (Lasix) 20 mg DAILY PO Last administered on 11/15/16 09:33; Admin Dose 20 MG; Start 11/12/16 at 11:00 Hydroxyzine HCl (Atarax) 50 mg Q6H PRN PO ITCHING; Start 11/12/16 at 11:00 Potassium Chloride (Potassium Chloride Pwd/Soln) 10 meq DAILY PO Last administered on 11/15/16 09:42; Admin Dose 10 MEQ; Start 11/12/16 at 11:30 Thiamine HCl (Vitamin B1) 100 mg DAILY PO Last administered on 11/15/16 09:32 ; Admin Dose 100 MG; Start 11/13/16 at 09:00 Tolterodine Tartrate (Detrol La) 4 mg DAILY PO Last administered on 11/15/16 09:33; Admin Dose 4 MG; Start 11/13/16 at 09:00 Zinc Sulfate (Zinc Sulfate) 220 mg DAILY PO Last administered on 11/15/16 09: 32; Admin Dose 220 MG; Start 11/13/16 at 09:00 Lactulose (Enulose) 20 gm Q8 PO Last administered on 11/14/16 14:00; Admin Dose 20 GM; Start 11/12/16 at 14:00 Lorazepam (Ativan) 0.5 mg Q6H PRN PO ANXIETY Last administered on 11/15/16 10: 42; Admin Dose 0.5 MG; Start 11/12/16 at 12:30 Eye Lubricant (Artificial Tears Oph) 2 drop Q6H PRN BOTH EYES DRY EYES Last administered on 11/13/16 09:06; Admin Dose 2 DROP; Start 11/12/16 at 16:00 Acetaminophen (Tylenol Tab) 325 mg Q4H PRN PO PAIN AND OR ELEVATED TEMP; Start 11/12/16 at 18:30 Vitamin B Complex/ Vitamin C (Berocca) 1 cap DAILY PO Last administered on 11/15 09:32; Admin Dose 1 CAP; Start 11/14/16 at 09:00 Multi-Ingredient Ointment (Eucerin Cream) 1 applic BID TOP Last administered on 11/15/16 09:38; Admin Dose 1 APPLIC; Start 11/14/16 at 14:30 Nystatin (Nystatin Powder) 1 applic DAILY TOP Last administered on 11/15/16 09 :31; Admin Dose 1 APPLIC; Start 11/15/16 at 09:00 OLLIE YUEN MD Nov 15, 2016 15:21
[2016-11-15 16:43] LABS: AMYLASE < 30 U/L (11-123)
[2016-11-15 20:00] VITALS: BP 108/77; RESP 20
[2016-11-15] MEDS: MONTELUKAST 10 MG TAB PO SCH (21:00)
[2016-11-15] MEDS: traZODone 50 MG TAB PO SCH (21:00)
[2016-11-15] MEDS: ARTIFICIAL TEARS 15 ML OPH BOTH EYES PRN (21:03)
[2016-11-16] MEDS: LORAZEPAM 0.5 MG TAB PO PRN ×3 (00:02→21:32)
[2016-11-16 02:00] VITALS: BP 104/75; RESP 20
[2016-11-16] MEDS: LACTULOSE 30ML CUP PO SCH ×3 (05:49→21:24)
[2016-11-16] MEDS: morphine (ER) 15 MG TAB PO SCH ×3 (05:49→21:32)
[2016-11-16] MEDS: PANTOPRAZOLE (EC) 40 MG TAB PO SCH (05:49)
[2016-11-16] MEDS: LEVOTHYROXINE 150 MCG TAB PO SCH (05:49)
[2016-11-16 06:06] LABS: BASOPHILS % 0.3 % (0.0-2.0); EOSINOPHILS # 0.2 10^3/ul (0.0-0.5); EOSINOPHILS % 3.5 % (0.0-7.0); HEMATOCRIT 22.8 % (37.0-47.0); HEMOGLOBIN 7.3 g/dl (12.0-16.0); LYMPHOCYTES # 2.9 10^3/ul (0.8-2.9); LYMPHOCYTES % 46.3 % (15.0-51.0); MEAN CORPUSCULAR HEMOGLOBIN 30.3 pg (29.0-33.0); MEAN CORPUSCULAR VOLUME 94.6 fl (82.0-101.0); MONOCYTE # 0.2 10^3/ul (0.3-0.9); MONOCYTES % 3.4 % (0.0-11.0); NEUTROPHILS % 46.2 % (39.0-77.0); PLATELET COUNT 142 10^3/UL (140-415); RED BLOOD COUNT 2.41 10^6/ul (4.20-5.40); RED CELL DISTRIBUTION WIDTH 19.6 % (11.5-14.5); WHITE BLOOD COUNT 6.2 10^3/ul (4.8-10.8)
[2016-11-16 06:42] LABS: CALCIUM 7.2 mg/dl (8.4-10.2); CREATININE 0.54 mg/dl (0.44-1.00); POTASSIUM 3.5 mmol/L (3.5-5.1)
[2016-11-16 07:37] VITALS: BP 91/60; RESP 20
[2016-11-16] MEDS: VENLAFAXINE (XR) 75 MG CAP PO SCH (08:32)
[2016-11-16] MEDS: oxyCODONE 15 MG TAB PO PRN ×3 (08:33→18:26)
[2016-11-16] MEDS: FOLIC ACID 1 MG TAB PO SCH (08:35)
[2016-11-16] MEDS: ASCORBIC ACID 500 MG TAB PO SCH (08:35)
[2016-11-16] MEDS: GABAPENTIN 300 MG CAP PO SCH ×2 (08:35→21:23)
[2016-11-16] MEDS: VITAMIN B COMPLEX/VIT C CAP PO SCH (08:35)
[2016-11-16] MEDS: THIAMINE 100 MG TAB PO SCH (08:35)
[2016-11-16] MEDS: ZINC SULFATE 220 MG CAP PO SCH (08:35)
[2016-11-16] MEDS: DOCUSATE SODIUM 100 MG CAP PO SCH ×2 (08:35→21:23)
[2016-11-16] MEDS: MULTIVITAMINS THERAPEUTIC TAB PO SCH (08:35)
[2016-11-16] MEDS: SUCRALFATE 1 GM TAB PO SCH ×4 (08:35→21:23)
[2016-11-16] MEDS: TOLTERODINE (SR) 4 MG CAP PO SCH (08:35)
[2016-11-16] MEDS: FUROSEMIDE 20 MG TAB PO SCH ×2 (08:36→18:30)
[2016-11-16] MEDS: METOPROLOL 25 MG TAB PO SCH ×2 (08:36→21:00)
[2016-11-16] MEDS: POTASSIUM CHLORIDE 20 MEQ POWDER FOR ORAL SOLN PO SCH (08:36)
[2016-11-16] MEDS: HEPARIN 5,000 UNIT/0.5 ML VIAL SC SCH ×2 (08:56→21:30)
[2016-11-16] MEDS: NYSTATIN 30 GM POWDER BTL TOP SCH ×2 (08:58→11:34)
[2016-11-16] MEDS: EUCERIN 113 GM CR TOP SCH ×3 (08:58→21:28)
[2016-11-16] MEDS: CLOBETASOL 0.05% 15 GM CR TOP SCH ×3 (08:59→21:27)
[2016-11-16 14:00] VITALS: BP 107/54; RESP 18
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
--- NOTE | 2016-11-16 16:53 | PN ---
Date/Time of Note Date/Time of Note DATE: 11/16/16 TIME: 16:51 Assessment/Plan VTE Prophylaxis VTE Prophylaxis Intervention: SCD's Lines/Catheters IV Catheter Type (from Nrsg): Saline Lock Urinary Cath still in place: Yes Reason Cath still needed: other (indicate) (not need) Assessment/Plan Assessment/Plan 46 yo F with pmhx gastric bypass surgery, gastroparesis 2/2 vagotomy admitted for hand and foot swelling and peeling. Pt with multiple admissions for similar with extensive work up for malignancy which was negative. 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 cont home meds Subjective 24 Hr Interval Summary Free Text/Dictation Pt states she was eating well at home though her low albumin speaks against this Exam/Review of Systems Vital Signs Vitals Vital Signs Date Time Temp Pulse Resp B/P Pulse Ox O2 Delivery O2 Flow Rate FiO2 11/16/16 14:00 97.8 115 18 107/54 98 11/13/16 15:55 Room Air Intake and Output 11/15/16 11/15/16 11/16/16 14:59 22:59 06:59 Intake Total 1500 ml 500 ml Output Total 1450 ml Balance 50 ml 500 ml Exam cachectic no mrg lungs clear abd soft hand swelling still present Results Result Diagram: 11/16/16 0527 11/16/16 0527 Results 24 hrs Laboratory Tests Test 11/16/16 05:27 White Blood Count 6.2 Red Blood Count 2.41 L Hemoglobin 7.3 L Hematocrit 22.8 L Mean Corpuscular Volume 94.6 Mean Corpuscular Hemoglobin 30.3 Mean Corpuscular Hemoglobin Concent 32.0 Red Cell Distribution Width 19.6 H Platelet Count 142 Mean Platelet Volume 11.0 H Neutrophils % 46.2 Lymphocytes % 46.3 Monocytes % 3.4 Eosinophils % 3.5 Basophils % 0.3 Nucleated Red Blood Cells % 0.0 Neutrophils # (Manual) 2.9 Lymphocytes # 2.9 Monocytes # 0.2 L Eosinophils # 0.2 Basophils # 0.0 Nucleated Red Blood Cells # 0.0 Sodium Level 135 Potassium Level 3.5 Chloride Level 97 Carbon Dioxide Level 32 H Anion Gap 10 Blood Urea Nitrogen 6 L Creatinine 0.54 Glucose Level 87 Calcium Level 7.2 L Medications Medications Current Medications Ondansetron HCl (Zofran Inj) 4 mg Q6H PRN IV NAUSEA AND/OR VOMITING; Start at 21:30 Heparin Sodium (Porcine) (Heparin (5000 Units/0.5 ml)) 5,000 unit BID SC Last administered on 11/16/16 08:56; Admin Dose 5,000 UNIT; Start 11/11/16 at 09:00 Docusate Sodium (Colace) 100 mg BID PO Last administered on 11/16/16 08:35; Admin Dose 100 MG; Start 11/11/16 at 09:00 Folic Acid (Folic Acid) 1 mg DAILY PO Last administered on 11/16/16 08:35; Admin Dose 1 MG; Start 11/11/16 at 09:00 Multivitamins Therapeutic (Theragran) 1 tab DAILY PO Last administered on 08:35; Admin Dose 1 TAB; Start 11/11/16 at 09:00 Pantoprazole (Protonix Tab) 40 mg DAILY@06 PO Last administered on 11/16/16 05 :49; Admin Dose 40 MG; Start 11/11/16 at 06:00 Gabapentin (Neurontin) 300 mg BID PO Last administered on 11/16/16 08:35; Admin Dose 300 MG; Start 11/11/16 at 09:00 Levothyroxine Sodium (Synthroid) 150 mcg DAILY@06 PO Last administered on 05:49; Admin Dose 150 MCG; Start 11/11/16 at 06:00 Metoprolol Tartrate (Lopressor) 25 mg BID PO Last administered on 11/11/16 09: 35; Admin Dose 25 MG; Start 11/11/16 at 09:00 Montelukast Sodium (Singulair) 10 mg HS PO Last administered on 11/15/16 21:00 ; Admin Dose 10 MG; Start 11/11/16 at 21:00 Sucralfate (Carafate) 1 gm QID PO Last administered on 11/16/16 15:02; Admin Dose 1 GM; Start 11/11/16 at 09:00 Trazodone HCl (Desyrel) 50 mg HS PO Last administered on 11/15/16 21:00; Admin Dose 50 MG; Start 11/11/16 at 21:00 Venlafaxine HCl (Effexor Xr) 150 mg DAILY PO Last administered on 11/16/16 08: 32; Admin Dose 150 MG; Start 11/11/16 at 09:00 Morphine Sulfate (Ms Contin (Er)) 15 mg Q8 PO Last administered on 11/16/16 15 :02; Admin Dose 15 MG; Start 11/11/16 at 14:00 Oxycodone HCl (Roxicodone) 15 mg Q4H PRN PO PAIN LEVEL 6-10 Last administered on 11/16/16 13:13; Admin Dose 15 MG; Start 11/11/16 at 18:00 Ascorbic Acid (Vitamin C) 500 mg DAILY PO Last administered on 11/16/16 08:35 ; Admin Dose 500 MG; Start 11/13/16 at 09:00 Clobetasol Propionate (Temovate 0.05% Cr) 1 applic BID TOP Last administered on 11/16/16 11:35; Admin Dose 1 APPLIC; Start 11/12/16 at 21:00 Diphenhydramine HCl (Benadryl) 25 mg Q6H PRN PO ITCHING; Start 11/12/16 at 11: 00 Hydroxyzine HCl (Atarax) 50 mg Q6H PRN PO ITCHING; Start 11/12/16 at 11:00 Potassium Chloride (Potassium Chloride Pwd/Soln) 10 meq DAILY PO Last administered on 11/16/16 08:36; Admin Dose 10 MEQ; Start 11/12/16 at 11:30 Thiamine HCl (Vitamin B1) 100 mg DAILY PO Last administered on 11/16/16 08:35 ; Admin Dose 100 MG; Start 11/13/16 at 09:00 Tolterodine Tartrate (Detrol La) 4 mg DAILY PO Last administered on 11/16/16 08:35; Admin Dose 4 MG; Start 11/13/16 at 09:00 Zinc Sulfate (Zinc Sulfate) 220 mg DAILY PO Last administered on 11/16/16 08: 35; Admin Dose 220 MG; Start 11/13/16 at 09:00 Lactulose (Enulose) 20 gm Q8 PO Last administered on 11/16/16 15:02; Admin Dose 20 GM; Start 11/12/16 at 14:00 Lorazepam (Ativan) 0.5 mg Q6H PRN PO ANXIETY Last administered on 11/16/16 11: 32; Admin Dose 0.5 MG; Start 11/12/16 at 12:30 Eye Lubricant (Artificial Tears Oph) 2 drop Q6H PRN BOTH EYES DRY EYES Last administered on 11/15/16 21:03; Admin Dose 2 DROP; Start 11/12/16 at 16:00 Acetaminophen (Tylenol Tab) 325 mg Q4H PRN PO PAIN AND OR ELEVATED TEMP; Start 11/12/16 at 18:30 Vitamin B Complex/ Vitamin C (Berocca) 1 cap DAILY PO Last administered on 11/16 08:35; Admin Dose 1 CAP; Start 11/14/16 at 09:00 Multi-Ingredient Ointment (Eucerin Cream) 1 applic BID TOP Last administered on 11/16/16 11:35; Admin Dose 1 APPLIC; Start 11/14/16 at 14:30 Nystatin (Nystatin Powder) 1 applic DAILY TOP Last administered on 11/16/16 11 :34; Admin Dose 1 APPLIC; Start 11/15/16 at 09:00 OLLIE YUEN MD Nov 16, 2016 16:53
[2016-11-16 19:49] VITALS: BP 107/73; RESP 20
[2016-11-16] MEDS: MONTELUKAST 10 MG TAB PO SCH (21:23)
[2016-11-16] MEDS: traZODone 50 MG TAB PO SCH (21:25)
[2016-11-17 02:00] VITALS: BP 102/65; PULSE 72; RESP 18
[2016-11-17] MEDS: morphine (ER) 15 MG TAB PO SCH ×4 (06:00→22:32)
[2016-11-17] MEDS: LEVOTHYROXINE 150 MCG TAB PO SCH (06:00)
[2016-11-17] MEDS: LACTULOSE 30ML CUP PO SCH ×4 (06:00→22:32)
[2016-11-17] MEDS: FUROSEMIDE 20 MG TAB PO SCH ×2 (06:31→17:20)
[2016-11-17] MEDS: PANTOPRAZOLE (EC) 40 MG TAB PO SCH (06:32)
[2016-11-17 07:39] VITALS: BP 100/62; RESP 16
[2016-11-17 07:59] LABS: ADD UMIC YES; UR ASCORBIC ACID NEGATIVE (NEGATIVE); UR BACTERIA FEW /HPF (NONE SEEN); UR BILIRUBIN (Dip) NEGATIVE (NEGATIVE); UR BLOOD (Dip) 1+ mg/dL (NEGATIVE); UR CLARITY SLIGHTLY CLOUDY (CLEAR); UR COLOR YELLOW (YELLOW); UR GLUCOSE (Dip) NEGATIVE (NEGATIVE); UR KETONES (Dip) NEGATIVE (NEGATIVE); UR LEUKOCYTE ESTERASE (Dip) 3+ Leu/ul (NEGATIVE); UR MUCUS FEW /HPF (NONE SEEN); UR NITRITE (Dip) NEGATIVE (NEGATIVE); UR RBC 3 /HPF (0-5); UR SPECIFIC GRAVITY (Dip) 1.006 (1.003-1.030); UR SQUAMOUS EPITHELIAL CELL FEW /HPF (FEW); UR TOTAL PROTEIN (Dip) NEGATIVE (NEGATIVE); UR UROBILINOGEN (Dip) NEGATIVE (NEGATIVE)
[2016-11-17] MEDS: oxyCODONE 15 MG TAB PO PRN ×3 (08:08→21:29)
[2016-11-17] MEDS: POTASSIUM CHLORIDE 20 MEQ POWDER FOR ORAL SOLN PO SCH (08:11)
[2016-11-17] MEDS: VITAMIN B COMPLEX/VIT C CAP PO SCH (08:11)
[2016-11-17] MEDS: SUCRALFATE 1 GM TAB PO SCH ×5 (08:11→20:38)
[2016-11-17] MEDS: TOLTERODINE (SR) 4 MG CAP PO SCH (08:12)
[2016-11-17] MEDS: ASCORBIC ACID 500 MG TAB PO SCH (08:15)
[2016-11-17] MEDS: THIAMINE 100 MG TAB PO SCH (08:15)
[2016-11-17] MEDS: FOLIC ACID 1 MG TAB PO SCH (08:15)
[2016-11-17] MEDS: DOCUSATE SODIUM 100 MG CAP PO SCH ×2 (08:15→20:38)
[2016-11-17] MEDS: GABAPENTIN 300 MG CAP PO SCH ×2 (08:15→20:38)
[2016-11-17] MEDS: ZINC SULFATE 220 MG CAP PO SCH (08:15)
[2016-11-17] MEDS: MULTIVITAMINS THERAPEUTIC TAB PO SCH (08:15)
[2016-11-17] MEDS: VENLAFAXINE (XR) 75 MG CAP PO SCH (08:16)
[2016-11-17] MEDS: METOPROLOL 25 MG TAB PO SCH ×2 (08:16→20:39)
[2016-11-17] MEDS: NYSTATIN 30 GM POWDER BTL TOP SCH (08:18)
[2016-11-17] MEDS: CLOBETASOL 0.05% 15 GM CR TOP SCH ×2 (08:19→20:42)
[2016-11-17] MEDS: EUCERIN 113 GM CR TOP SCH ×2 (08:48→20:41)
[2016-11-17] MEDS: HEPARIN 5,000 UNIT/0.5 ML VIAL SC SCH ×2 (08:49→20:50)
[2016-11-17] MEDS: LORAZEPAM 0.5 MG TAB PO PRN ×2 (10:17→20:38)
[2016-11-17 14:46] VITALS: BP 86/55; RESP 18
--- NOTE | 2016-11-17 17:32 | PN ---
Date/Time of Note Date/Time of Note DATE: 11/17/16 TIME: 17:31 Assessment/Plan VTE Prophylaxis VTE Prophylaxis Intervention: SCD's Lines/Catheters IV Catheter Type (from Nrsg): Saline Lock Urinary Cath still in place: Yes Reason Cath still needed: other (indicate) (pt refusing) Assessment/Plan Assessment/Plan 46 yo F with pmhx gastric bypass surgery, gastroparesis 2/2 vagotomy admitted for hand and foot swelling and peeling. Pt with multiple admissions for similar with extensive work up for malignancy which was negative. 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 pain management cont home meds Subjective 24 Hr Interval Summary Free Text/Dictation Pt briefly seen from doorway Exam/Review of Systems Vital Signs Vitals Vital Signs Date Time Temp Pulse Resp B/P Pulse Ox O2 Delivery O2 Flow Rate FiO2 11/17/16 14:46 98.2 74 18 86/55 96 11/17/16 02:00 Room Air Intake and Output 11/16/16 11/16/16 11/17/16 15:00 23:00 07:00 Intake Total 1460 ml 480 ml Output Total 1090 ml 1600 ml Balance 370 ml -1120 ml Exam nad resp nonlabored no gross abd distension no supplemental O2 skin unchanged Results Result Diagram: 11/16/16 0527 11/16/16 0527 Results 24 hrs Laboratory Tests Test 11/16/16 23:55 Urine Color YELLOW Urine Clarity SLIGHTLY CLOUDY A Urine pH 8.0 Urine Specific [place] 1.006 Urine Ketones NEGATIVE Urine Nitrite NEGATIVE Urine Bilirubin NEGATIVE Urine Urobilinogen NEGATIVE Urine Leukocyte Esterase 3+ H Urine Microscopic RBC 3 Urine Microscopic WBC 90 H Urine Squamous Epithelial Cells FEW Urine Bacteria FEW A Urine Mucus FEW A Urine Hemoglobin 1+ H Urine Glucose NEGATIVE Urine Total Protein NEGATIVE Medications Medications Current Medications Ondansetron HCl (Zofran Inj) 4 mg Q6H PRN IV NAUSEA AND/OR VOMITING; Start at 21:30 Heparin Sodium (Porcine) (Heparin (5000 Units/0.5 ml)) 5,000 unit BID SC Last administered on 11/16/16t 21:30; Admin Dose 5,000 UNIT; Start 11/11/16 at 09:00 Docusate Sodium (Colace) 100 mg BID PO Last administered on 11/17/16 08:15; Admin Dose 100 MG; Start 11/11/16 at 09:00 Folic Acid (Folic Acid) 1 mg DAILY PO Last administered on 11/17/16 08:15; Admin Dose 1 MG; Start 11/11/16 at 09:00 Multivitamins Therapeutic (Theragran) 1 tab DAILY PO Last administered on 08:15; Admin Dose 1 TAB; Start 11/11/16 at 09:00 Pantoprazole (Protonix Tab) 40 mg DAILY@06 PO Last administered on 11/17/16 06 :32; Admin Dose 40 MG; Start 11/11/16 at 06:00 Gabapentin (Neurontin) 300 mg BID PO Last administered on 11/17/16 08:15; Admin Dose 300 MG; Start 11/11/16 at 09:00 Levothyroxine Sodium (Synthroid) 150 mcg DAILY@06 PO Last administered on 06:00; Admin Dose 150 MCG; Start 11/11/16 at 06:00 Metoprolol Tartrate (Lopressor) 25 mg BID PO Last administered on 11/11/16 09: 35; Admin Dose 25 MG; Start 11/11/16 at 09:00 Montelukast Sodium (Singulair) 10 mg HS PO Last administered on 11/16/16 21:23 ; Admin Dose 10 MG; Start 11/11/16 at 21:00 Sucralfate (Carafate) 1 gm QID PO Last administered on 11/17/16 14:57; Admin Dose 1 GM; Start 11/11/16 at 09:00 Trazodone HCl (Desyrel) 50 mg HS PO Last administered on 11/16/16 21:25; Admin Dose 50 MG; Start 11/11/16 at 21:00 Venlafaxine HCl (Effexor Xr) 150 mg DAILY PO Last administered on 11/17/16 08: 16; Admin Dose 150 MG; Start 11/11/16 at 09:00 Morphine Sulfate (Ms Contin (Er)) 15 mg Q8 PO Last administered on 11/17/16 14 :57; Admin Dose 15 MG; Start 11/11/16 at 14:00 Oxycodone HCl (Roxicodone) 15 mg Q4H PRN PO PAIN LEVEL 6-10 Last administered on 11/17/16 17:20; Admin Dose 15 MG; Start 11/11/16 at 18:00 Ascorbic Acid (Vitamin C) 500 mg DAILY PO Last administered on 11/17/16 08:15 ; Admin Dose 500 MG; Start 11/13/16 at 09:00 Clobetasol Propionate (Temovate 0.05% Cr) 1 applic BID TOP Last administered on 11/17/16 08:19; Admin Dose 1 APPLIC; Start 11/12/16 at 21:00 Diphenhydramine HCl (Benadryl) 25 mg Q6H PRN PO ITCHING; Start 11/12/16 at 11: 00 Hydroxyzine HCl (Atarax) 50 mg Q6H PRN PO ITCHING; Start 11/12/16 at 11:00 Potassium Chloride (Potassium Chloride Pwd/Soln) 10 meq DAILY PO Last administered on 11/17/16 08:11; Admin Dose 10 MEQ; Start 11/12/16 at 11:30 Thiamine HCl (Vitamin B1) 100 mg DAILY PO Last administered on 11/17/16 08:15 ; Admin Dose 100 MG; Start 11/13/16 at 09:00 Tolterodine Tartrate (Detrol La) 4 mg DAILY PO Last administered on 11/17/16 08:12; Admin Dose 4 MG; Start 11/13/16 at 09:00 Zinc Sulfate (Zinc Sulfate) 220 mg DAILY PO Last administered on 11/17/16 08: 15; Admin Dose 220 MG; Start 11/13/16 at 09:00 Lactulose (Enulose) 20 gm Q8 PO Last administered on 11/17/16 14:57; Admin Dose 20 GM; Start 11/12/16 at 14:00 Lorazepam (Ativan) 0.5 mg Q6H PRN PO ANXIETY Last administered on 11/17/16 10: 17; Admin Dose 0.5 MG; Start 11/12/16 at 12:30 Eye Lubricant (Artificial Tears Oph) 2 drop Q6H PRN BOTH EYES DRY EYES Last administered on 11/15/16 21:03; Admin Dose 2 DROP; Start 11/12/16 at 16:00 Acetaminophen (Tylenol Tab) 325 mg Q4H PRN PO PAIN AND OR ELEVATED TEMP; Start 11/12/16 at 18:30 Vitamin B Complex/ Vitamin C (Berocca) 1 cap DAILY PO Last administered on 11/17 08:11; Admin Dose 1 CAP; Start 11/14/16 at 09:00 Nystatin (Nystatin Powder) 1 applic DAILY TOP Last administered on 11/17/16 08 :18; Admin Dose 1 APPLIC; Start 11/15/16 at 09:00 Multi-Ingredient Ointment (Eucerin Cream) 1 applic BID TOP ; Start 11/17/16 at 08:22 OLLIE YUEN MD Nov 17, 2016 17:32
[2016-11-17 19:50] VITALS: BP 104/64; RESP 19
[2016-11-17] MEDS: MONTELUKAST 10 MG TAB PO SCH (20:38)
[2016-11-17] MEDS: traZODone 50 MG TAB PO SCH (20:40)
[2016-11-18] MEDS: oxyCODONE 15 MG TAB PO PRN ×4 (01:56→21:03)
[2016-11-18 02:45] VITALS: BP 90/52; RESP 18
[2016-11-18] MEDS: FUROSEMIDE 20 MG TAB PO SCH ×2 (06:00→17:13)
[2016-11-18] MEDS: PANTOPRAZOLE (EC) 40 MG TAB PO SCH (06:44)
[2016-11-18] MEDS: LEVOTHYROXINE 150 MCG TAB PO SCH (06:44)
[2016-11-18] MEDS: morphine (ER) 15 MG TAB PO SCH ×3 (06:44→22:32)
[2016-11-18] MEDS: LACTULOSE 30ML CUP PO SCH ×3 (06:44→22:32)
[2016-11-18 08:27] VITALS: BP 86/54; RESP 16
[2016-11-18] MEDS: METOPROLOL 25 MG TAB PO SCH ×2 (09:00→21:00)
[2016-11-18] MEDS: CLOBETASOL 0.05% 15 GM CR TOP SCH ×2 (09:27→21:09)
[2016-11-18] MEDS: EUCERIN 113 GM CR TOP SCH ×2 (09:28→21:04)
[2016-11-18] MEDS: TOLTERODINE (SR) 4 MG CAP PO SCH (09:29)
[2016-11-18] MEDS: VITAMIN B COMPLEX/VIT C CAP PO SCH (09:29)
[2016-11-18] MEDS: THIAMINE 100 MG TAB PO SCH (09:29)
[2016-11-18] MEDS: DOCUSATE SODIUM 100 MG CAP PO SCH ×2 (09:30→21:03)
[2016-11-18] MEDS: ASCORBIC ACID 500 MG TAB PO SCH (09:30)
[2016-11-18] MEDS: ZINC SULFATE 220 MG CAP PO SCH (09:30)
[2016-11-18] MEDS: MULTIVITAMINS THERAPEUTIC TAB PO SCH (09:30)
[2016-11-18] MEDS: GABAPENTIN 300 MG CAP PO SCH ×2 (09:30→21:03)
[2016-11-18] MEDS: SUCRALFATE 1 GM TAB PO SCH ×4 (09:31→21:03)
[2016-11-18] MEDS: FOLIC ACID 1 MG TAB PO SCH (09:31)
[2016-11-18] MEDS: VENLAFAXINE (XR) 75 MG CAP PO SCH (09:32)
[2016-11-18] MEDS: POTASSIUM CHLORIDE 20 MEQ POWDER FOR ORAL SOLN PO SCH (09:34)
[2016-11-18] MEDS: HEPARIN 5,000 UNIT/0.5 ML VIAL SC SCH ×2 (09:45→21:04)
[2016-11-18] MEDS: NYSTATIN 30 GM POWDER BTL TOP SCH (09:55)
[2016-11-18] MEDS: LORAZEPAM 0.5 MG TAB PO PRN ×2 (09:55→17:30)
--- NOTE | 2016-11-18 12:47 | PN ---
Date/Time of Note Date/Time of Note DATE: 11/18/16 TIME: 12:45 Assessment/Plan VTE Prophylaxis VTE Prophylaxis Intervention: SCD's Lines/Catheters IV Catheter Type (from Nrsg): Saline Lock Urinary Cath still in place: Yes Reason Cath still needed: other (indicate) (pt refusing removal) Assessment/Plan Assessment/Plan 46 yo F with pmhx gastric bypass surgery, gastroparesis 2/2 vagotomy admitted for hand and foot swelling and peeling. Pt with multiple admissions for similar with extensive work up for malignancy which was negative. Given low albumin, suspect etio is nutritional deficiency from inability to absorb nutrients from bypass surgery + decreased PO intake-->pt with severe protein calorie malnutrition, also likely B vitamin deficiency PLAN gre tutor following added B complex vitamin pain management cont home meds Pt requested PEG when she talked to nurse today. Given pt able to take PO, I am unclear what the indication would be at this time though defer to incoming hospitalist team CM working on dispo Subjective 24 Hr Interval Summary Free Text/Dictation Doesn't feel great. Still not eating much Exam/Review of Systems Vital Signs Vitals Vital Signs Date Time Temp Pulse Resp B/P Pulse Ox O2 Delivery O2 Flow Rate FiO2 11/18/16 08:27 98.0 87 16 86/54 96 11/17/16 02:00 Room Air Intake and Output 11/17/16 11/17/16 11/18/16 15:00 23:00 07:00 Intake Total 440 ml Output Total 1200 ml Balance -760 ml Exam cachectic no mrg lungs clear abd soft +edema Results Result Diagram: 11/16/1627 11/16/16526 Medications Medications Current Medications Ondansetron HCl (Zofran Inj) 4 mg Q6H PRN IV NAUSEA AND/OR VOMITING; Start at 21:30 Heparin Sodium (Porcine) (Heparin (5000 Units/0.5 ml)) 5,000 unit BID SC Last administered on 11/18/16 09:45; Admin Dose 5,000 UNIT; Start 11/11/16 at 09:00 Docusate Sodium (Colace) 100 mg BID PO Last administered on 11/18/16 09:30; Admin Dose 100 MG; Start 11/11/16 at 09:00 Folic Acid (Folic Acid) 1 mg DAILY PO Last administered on 11/18/16 09:31; Admin Dose 1 MG; Start 11/11/16 at 09:00 Multivitamins Therapeutic (Theragran) 1 tab DAILY PO Last administered on 09:30; Admin Dose 1 TAB; Start 11/11/16 at 09:00 Pantoprazole (Protonix Tab) 40 mg DAILY@06 PO Last administered on 11/18/16 06 :44; Admin Dose 40 MG; Start 11/11/16 at 06:00 Gabapentin (Neurontin) 300 mg BID PO Last administered on 11/18/16 09:30; Admin Dose 300 MG; Start 11/11/16 at 09:00 Levothyroxine Sodium (Synthroid) 150 mcg DAILY@06 PO Last administered on 06:44; Admin Dose 150 MCG; Start 11/11/16 at 06:00 Metoprolol Tartrate (Lopressor) 25 mg BID PO Last administered on 11/11/16 09: 35; Admin Dose 25 MG; Start 11/11/16 at 09:00 Montelukast Sodium (Singulair) 10 mg HS PO Last administered on 11/17/16 20:38 ; Admin Dose 10 MG; Start 11/11/16 at 21:00 Sucralfate (Carafate) 1 gm QID PO Last administered on 11/18/16 09:31; Admin Dose 1 GM; Start 11/11/16 at 09:00 Trazodone HCl (Desyrel) 50 mg HS PO Last administered on 11/17/16 20:40; Admin Dose 50 MG; Start 11/11/16 at 21:00 Venlafaxine HCl (Effexor Xr) 150 mg DAILY PO Last administered on 11/18/16 09: 32; Admin Dose 150 MG; Start 11/11/16 at 09:00 Morphine Sulfate (Ms Contin (Er)) 15 mg Q8 PO Last administered on 11/18/16 06 :44; Admin Dose 15 MG; Start 11/11/16 at 14:00 Oxycodone HCl (Roxicodone) 15 mg Q4H PRN PO PAIN LEVEL 6-10 Last administered on 11/18/16 09:56; Admin Dose 15 MG; Start 11/11/16 at 18:00 Ascorbic Acid (Vitamin C) 500 mg DAILY PO Last administered on 11/18/16 09:30 ; Admin Dose 500 MG; Start 11/13/16 at 09:00 Clobetasol Propionate (Temovate 0.05% Cr) 1 applic BID TOP Last administered on 11/18/16 09:27; Admin Dose 1 APPLIC; Start 11/12/16 at 21:00 Diphenhydramine HCl (Benadryl) 25 mg Q6H PRN PO ITCHING; Start 11/12/16 at 11: 00 Hydroxyzine HCl (Atarax) 50 mg Q6H PRN PO ITCHING; Start 11/12/16 at 11:00 Potassium Chloride (Potassium Chloride Pwd/Soln) 10 meq DAILY PO Last administered on 11/18/16 09:34; Admin Dose 10 MEQ; Start 11/12/16 at 11:30 Thiamine HCl (Vitamin B1) 100 mg DAILY PO Last administered on 11/18/16 09:29 ; Admin Dose 100 MG; Start 11/13/16 at 09:00 Tolterodine Tartrate (Detrol La) 4 mg DAILY PO Last administered on 11/18/16 09:29; Admin Dose 4 MG; Start 11/13/16 at 09:00 Zinc Sulfate (Zinc Sulfate) 220 mg DAILY PO Last administered on 11/18/16 09: 30; Admin Dose 220 MG; Start 11/13/16 at 09:00 Lactulose (Enulose) 20 gm Q8 PO Last administered on 11/18/16 06:44; Admin Dose 20 GM; Start 11/12/16 at 14:00 Lorazepam (Ativan) 0.5 mg Q6H PRN PO ANXIETY Last administered on 11/18/16 09: 55; Admin Dose 0.5 MG; Start 11/12/16 at 12:30 Eye Lubricant (Artificial Tears Oph) 2 drop Q6H PRN BOTH EYES DRY EYES Last administered on 11/15/16 21:03; Admin Dose 2 DROP; Start 11/12/16 at 16:00 Acetaminophen (Tylenol Tab) 325 mg Q4H PRN PO PAIN AND OR ELEVATED TEMP; Start 11/12/16 at 18:30 Vitamin B Complex/ Vitamin C (Berocca) 1 cap DAILY PO Last administered on 11/18 09:29; Admin Dose 1 CAP; Start 11/14/16 at 09:00 Nystatin (Nystatin Powder) 1 applic DAILY TOP Last administered on 11/18/16 09 :55; Admin Dose 1 APPLIC; Start 11/15/16 at 09:00 Multi-Ingredient Ointment (Eucerin Cream) 1 applic BID TOP Last administered on 11/18/16 09:28; Admin Dose 1 APPLIC; Start 11/17/16 at 08:22 OLLIE YUEN MD Nov 18, 2016 12:47
[2016-11-18 14:00] VITALS: BP 99/68; RESP 16
[2016-11-18 20:00] VITALS: BP 99/70; RESP 18
[2016-11-18] MEDS: traZODone 50 MG TAB PO SCH (21:00)
[2016-11-18] MEDS: MONTELUKAST 10 MG TAB PO SCH (21:03)
[2016-11-19] MEDS: oxyCODONE 15 MG TAB PO PRN ×5 (01:09→19:41)
[2016-11-19] MEDS: LORAZEPAM 0.5 MG TAB PO PRN ×3 (02:54→17:37)
[2016-11-19 03:01] VITALS: BP 100/75; RESP 18
[2016-11-19] MEDS: PANTOPRAZOLE (EC) 40 MG TAB PO SCH (05:37)
[2016-11-19] MEDS: LEVOTHYROXINE 150 MCG TAB PO SCH (05:37)
[2016-11-19] MEDS: morphine (ER) 15 MG TAB PO SCH ×3 (05:37→23:58)
[2016-11-19] MEDS: LACTULOSE 30ML CUP PO SCH ×3 (05:37→22:00)
[2016-11-19] MEDS: FUROSEMIDE 20 MG TAB PO SCH ×3 (05:38→17:40)
[2016-11-19 07:24] VITALS: BP 102/66; RESP 20
[2016-11-19] MEDS: METOPROLOL 25 MG TAB PO SCH (09:00)
[2016-11-19] MEDS: EUCERIN 113 GM CR TOP SCH ×2 (09:30→21:00)
[2016-11-19] MEDS: NYSTATIN 30 GM POWDER BTL TOP SCH (09:31)
[2016-11-19] MEDS: CLOBETASOL 0.05% 15 GM CR TOP SCH ×2 (09:31→21:00)
[2016-11-19] MEDS: VITAMIN B COMPLEX/VIT C CAP PO SCH (09:31)
[2016-11-19] MEDS: DOCUSATE SODIUM 100 MG CAP PO SCH ×2 (09:32→21:00)
[2016-11-19] MEDS: MULTIVITAMINS THERAPEUTIC TAB PO SCH (09:32)
[2016-11-19] MEDS: TOLTERODINE (SR) 4 MG CAP PO SCH (09:32)
[2016-11-19] MEDS: SUCRALFATE 1 GM TAB PO SCH ×4 (09:33→21:00)
[2016-11-19] MEDS: GABAPENTIN 300 MG CAP PO SCH ×3 (09:34→23:57)
[2016-11-19] MEDS: ZINC SULFATE 220 MG CAP PO SCH (09:34)
[2016-11-19] MEDS: FOLIC ACID 1 MG TAB PO SCH (09:35)
[2016-11-19] MEDS: THIAMINE 100 MG TAB PO SCH (09:35)
[2016-11-19] MEDS: ASCORBIC ACID 500 MG TAB PO SCH (09:35)
[2016-11-19] MEDS: VENLAFAXINE (XR) 75 MG CAP PO SCH (09:35)
[2016-11-19 09:37] LABS: BASOPHILS % 0.5 % (0.0-2.0); EOSINOPHILS # 0.3 10^3/ul (0.0-0.5); EOSINOPHILS % 4.3 % (0.0-7.0); HEMATOCRIT 24.4 % (37.0-47.0); HEMOGLOBIN 7.9 g/dl (12.0-16.0); LYMPHOCYTES # 2.4 10^3/ul (0.8-2.9); LYMPHOCYTES % 39.2 % (15.0-51.0); MEAN CORPUSCULAR HEMOGLOBIN 28.8 pg (29.0-33.0); MEAN CORPUSCULAR HGB CONC 32.4 g/dl (32.0-37.0); MEAN CORPUSCULAR VOLUME 89.1 fl (82.0-101.0); MEAN PLATELET VOLUME 10.9 fl (7.4-10.4); MONOCYTE # 0.4 10^3/ul (0.3-0.9); MONOCYTES % 6.3 % (0.0-11.0); NEUTROPHILS % 49.2 % (39.0-77.0); PLATELET COUNT 171 10^3/UL (140-415); RED BLOOD COUNT 2.74 10^6/ul (4.20-5.40); RED CELL DISTRIBUTION WIDTH 20.7 % (11.5-14.5); WHITE BLOOD COUNT 6.1 10^3/ul (4.8-10.8)
[2016-11-19] MEDS: HEPARIN 5,000 UNIT/0.5 ML VIAL SC SCH ×2 (09:49→21:00)
[2016-11-19 10:05] LABS: CALCIUM 7.8 mg/dl (8.4-10.2); CREATININE 0.63 mg/dl (0.44-1.00); MAGNESIUM 1.5 mg/dl (1.7-2.5); PHOSPHORUS 3.7 mg/dl (2.5-4.9); POTASSIUM 3.6 mmol/L (3.5-5.1)
[2016-11-19] MEDS: ARTIFICIAL TEARS 15 ML OPH BOTH EYES PRN (10:11)
[2016-11-19] MEDS: POTASSIUM CHLORIDE 20 MEQ POWDER FOR ORAL SOLN PO SCH (10:12)
[2016-11-19 10:25] VITALS: BP 119/85; PULSE 89
--- NOTE | 2016-11-19 10:49 | PN ---
Date/Time of Note Date/Time of Note DATE: 11/19/16 TIME: 10:29 Assessment/Plan VTE Prophylaxis VTE Prophylaxis Intervention: heparin Lines/Catheters IV Catheter Type (from Nrsg): Saline Lock Urinary Cath still in place: Yes Reason Cath still needed: urinary retention Assessment/Plan Chief Complaint/Hosp Course Assessment/Plan: 46-year-old female with a past medical history of chronic pain syndrome, hypothyroidism, gastroparesis 2/2 vagotomy, status post gastric bypass surgery in the past, pain and opioid dependence, depression, GERD, alcoholic liver disease, asthma presents with lower extremity redness and blistering, likely cellulitis, history of noncompliance as well. 1. Lower extremity erythema and swelling-patient has admissions for this before, initial thought on admission was secondary to cellulitis. However, given low albumin, because may be nutritional deficiency from inability to absorb nutrients from bypass surgery + decreased PO intake-->pt with severe protein calorie malnutrition, also B vitamin deficiency. -monitor for now -Continue Lasix PO BID -PT and OT consult -parcel post officer following -added B complex vitamin, thiamine, multivitamin, consider appetite stimulant as well 2. Headache: Head CT at the outside hospital was negative for acute processes -Pain management- f/u rec's 3. Hyponatremia-resolved Asymptomatic, monitor for now BMP every morning 4. History of alcoholic liver disease-although no cirrhosis identified on last CT scan from August 2016 -Continue diuresis 5. Opioid dependency Pain management consult on the case -For now continue MS Contin 3 times daily only for now, oxy IR as needed, follow -up final pain management consult recommendations 6. History of positive tumor markers with elevated CA 19-9, CA 125. and CEA : Patient has in the past been evaluated by oncology. CT chest/abdomen/pelvis was negative for malignancy. Colonoscopy also without finding of malignancy at that time. -Per oncology on last admission in August 2016, no need to do additional workup and no need to order additional tumor markers, monitor for now 7. History of Gastric bypass. Continue proton pump inhibitor. 8. Chronic depression -Continue antidepressant 9. Eye irritation: No signs of any discharge, although patient claims to have discharge from the right eye. -We will add gentamicin drops twice daily 3 days 10. Dispo: Hospice eval pending, they want repeat MRSA screen to be performed before evaluating patient, we will order this today Problems: Subjective 24 Hr Interval Summary Free Text/Dictation Patient complaining of some discharge from the right eye. Saying she does not "enjoy her food anymore", although per nursing staff appears to be eating well today. Exam/Review of Systems Vital Signs Vitals Vital Signs Date Time Temp Pulse Resp B/P Pulse Ox O2 Delivery O2 Flow Rate FiO2 11/19/16 10:25 89 119/85 11/19/16 07:24 98.1 20 99 11/17/16 02:00 Room Air Intake and Output 11/18/16 11/18/16 11/19/16 15:00 23:00 07:00 Intake Total 1320 ml 400 ml Output Total 850 ml 2600 ml Balance 470 ml -2200 ml Exam Lying in bed, eating food, cachectic Pupils equal round reactive to light, extraocular muscles intact no mrg lungs clear bilaterally abd soft +edema and some redness bilateral lower extremities, no warmth Results Result Diagram: 11/19/16 0846 11/16/16 0527 Results 24 hrs Laboratory Tests Test 11/19/16 08:46 White Blood Count 6.1 Red Blood Count 2.74 L Hemoglobin 7.9 L Hematocrit 24.4 L Mean Corpuscular Volume 89.1 Mean Corpuscular Hemoglobin 28.8 L Mean Corpuscular Hemoglobin Concent 32.4 Red Cell Distribution Width 20.7 H Platelet Count 171 # Mean Platelet Volume 10.9 H Neutrophils % 49.2 Lymphocytes % 39.2 Monocytes % 6.3 Eosinophils % 4.3 Basophils % 0.5 Nucleated Red Blood Cells % 0.0 Neutrophils # (Manual) 3.0 Lymphocytes # 2.4 Monocytes # 0.4 Eosinophils # 0.3 Basophils # 0.0 Nucleated Red Blood Cells # 0.0 Medications Medications Current Medications Ondansetron HCl (Zofran Inj) 4 mg Q6H PRN IV NAUSEA AND/OR VOMITING; Start at 21:30 Heparin Sodium (Porcine) (Heparin (5000 Units/0.5 ml)) 5,000 unit BID SC Last administered on 11/19/16 09:49; Admin Dose 5,000 UNIT; Start 11/11/16 at 09:00 Docusate Sodium (Colace) 100 mg BID PO Last administered on 11/19/16 09:32; Admin Dose 100 MG; Start 11/11/16 at 09:00 Folic Acid (Folic Acid) 1 mg DAILY PO Last administered on 11/19/16 09:35; Admin Dose 1 MG; Start 11/11/16 at 09:00 Multivitamins Therapeutic (Theragran) 1 tab DAILY PO Last administered on 09:32; Admin Dose 1 TAB; Start 11/11/16 at 09:00 Pantoprazole (Protonix Tab) 40 mg DAILY@06 PO Last administered on 11/19/16 05 :37; Admin Dose 40 MG; Start 11/11/16 at 06:00 Gabapentin (Neurontin) 300 mg BID PO Last administered on 11/19/16 09:34; Admin Dose 300 MG; Start 11/11/16 at 09:00 Levothyroxine Sodium (Synthroid) 150 mcg DAILY@06 PO Last administered on 05:37; Admin Dose 150 MCG; Start 11/11/16 at 06:00 Metoprolol Tartrate (Lopressor) 25 mg BID PO Last administered on 11/11/16 09: 35; Admin Dose 25 MG; Start 11/11/16 at 09:00 Montelukast Sodium (Singulair) 10 mg HS PO Last administered on 11/18/16 21:03 ; Admin Dose 10 MG; Start 11/11/16 at 21:00 Sucralfate (Carafate) 1 gm QID PO Last administered on 11/19/16 09:33; Admin Dose 1 GM; Start 11/11/16 at 09:00 Trazodone HCl (Desyrel) 50 mg HS PO Last administered on 11/17/16 20:40; Admin Dose 50 MG; Start 11/11/16 at 21:00 Venlafaxine HCl (Effexor Xr) 150 mg DAILY PO Last administered on 11/19/16 09: 35; Admin Dose 150 MG; Start 11/11/16 at 09:00 Morphine Sulfate (Ms Contin (Er)) 15 mg Q8 PO Last administered on 11/19/16 05 :37; Admin Dose 15 MG; Start 11/11/16 at 14:00 Oxycodone HCl (Roxicodone) 15 mg Q4H PRN PO PAIN LEVEL 6-10 Last administered on 11/19/16 06:51; Admin Dose 15 MG; Start 11/11/16 at 18:00 Ascorbic Acid (Vitamin C) 500 mg DAILY PO Last administered on 11/19/16 09:35 ; Admin Dose 500 MG; Start 11/13/16 at 09:00 Clobetasol Propionate (Temovate 0.05% Cr) 1 applic BID TOP Last administered on 11/19/16 09:31; Admin Dose 1 APPLIC; Start 11/12/16 at 21:00 Diphenhydramine HCl (Benadryl) 25 mg Q6H PRN PO ITCHING; Start 11/12/16 at 11: 00 Hydroxyzine HCl (Atarax) 50 mg Q6H PRN PO ITCHING; Start 11/12/16 at 11:00 Potassium Chloride (Potassium Chloride Pwd/Soln) 10 meq DAILY PO Last administered on 11/19/16 10:12; Admin Dose 10 MEQ; Start 11/12/16 at 11:30 Thiamine HCl (Vitamin B1) 100 mg DAILY PO Last administered on 11/19/16 09:35 ; Admin Dose 100 MG; Start 11/13/16 at 09:00 Tolterodine Tartrate (Detrol La) 4 mg DAILY PO Last administered on 11/19/16 09:32; Admin Dose 4 MG; Start 11/13/16 at 09:00 Zinc Sulfate (Zinc Sulfate) 220 mg DAILY PO Last administered on 11/19/16 09: 34; Admin Dose 220 MG; Start 11/13/16 at 09:00 Lactulose (Enulose) 20 gm Q8 PO Last administered on 11/19/16 05:37; Admin Dose 20 GM; Start 11/12/16 at 14:00 Lorazepam (Ativan) 0.5 mg Q6H PRN PO ANXIETY Last administered on 11/19/16 10: 10; Admin Dose 0.5 MG; Start 11/12/16 at 12:30 Eye Lubricant (Artificial Tears Oph) 2 drop Q6H PRN BOTH EYES DRY EYES Last administered on 11/19/16 10:11; Admin Dose 2 DROP; Start 11/12/16 at 16:00 Acetaminophen (Tylenol Tab) 325 mg Q4H PRN PO PAIN AND OR ELEVATED TEMP; Start 11/12/16 at 18:30 Vitamin B Complex/ Vitamin C (Berocca) 1 cap DAILY PO Last administered on 11/19 09:31; Admin Dose 1 CAP; Start 11/14/16 at 09:00 Nystatin (Nystatin Powder) 1 applic DAILY TOP Last administered on 11/19/16 09 :31; Admin Dose 1 APPLIC; Start 11/15/16 at 09:00 Multi-Ingredient Ointment (Eucerin Cream) 1 applic BID TOP Last administered on 11/19/16 09:30; Admin Dose 1 APPLIC; Start 11/17/16 at 08:22 TOSIN ENCARNACION Nov 19, 2016 10:49
[2016-11-19] MEDS: GENTAMICIN 0.3% 5 ML OPH BOTH EYES SCH ×2 (11:00→21:00)
[2016-11-19] MEDS ORDERED: MAGNESIUM SULFATE 2 GM/50 ML 50 ML IVPB ONE (12:00)
[2016-11-19] MEDS: LEVOFLOXACIN 750 MG TABLET PO SCH (12:50)
[2016-11-19] MEDS: MUPIROCIN 2% 22 GM OINT TOP SCH ×2 (12:50→21:00)
[2016-11-19] MEDS: MEGESTROL (40 MG/ML) 10ML CUP PO SCH (12:50)
[2016-11-19 13:09] VITALS: BP 103/70; RESP 20
[2016-11-19 20:00] VITALS: BP 91/62; RESP 20
[2016-11-19] MEDS: MONTELUKAST 10 MG TAB PO SCH (21:00)
[2016-11-19] MEDS: traZODone 50 MG TAB PO SCH (21:00)
[2016-11-20] MEDS: HEPARIN 5,000 UNIT/0.5 ML VIAL SC SCH ×3 (00:02→22:39)
[2016-11-20 02:00] VITALS: BP 111/73; RESP 20
[2016-11-20] MEDS: oxyCODONE 15 MG TAB PO PRN ×5 (02:08→20:44)
[2016-11-20] MEDS: LORAZEPAM 0.5 MG TAB PO PRN ×4 (02:39→23:56)
[2016-11-20] MEDS: PANTOPRAZOLE (EC) 40 MG TAB PO SCH (06:23)
[2016-11-20] MEDS: LACTULOSE 30ML CUP PO SCH ×3 (06:23→22:33)
[2016-11-20] MEDS: LEVOFLOXACIN 750 MG TABLET PO SCH (06:23)
[2016-11-20] MEDS: FUROSEMIDE 20 MG TAB PO SCH ×2 (06:24→17:55)
[2016-11-20] MEDS: LEVOTHYROXINE 175 MCG TAB PO SCH (06:32)
[2016-11-20 07:19] VITALS: BP 90/59; RESP 20
[2016-11-20] MEDS: EUCERIN 113 GM CR TOP SCH ×2 (09:00→20:44)
[2016-11-20] MEDS: NYSTATIN 30 GM POWDER BTL TOP SCH (09:00)
[2016-11-20] MEDS: TOLTERODINE (SR) 4 MG CAP PO SCH (09:00)
[2016-11-20] MEDS: morphine (ER) 15 MG TAB PO SCH ×3 (09:13→22:34)
[2016-11-20] MEDS: METOPROLOL 25 MG TAB PO SCH ×2 (10:00→20:42)
--- NOTE | 2016-11-20 10:02 | PN ---
Date/Time of Note Date/Time of Note DATE: 11/20/16 TIME: 09:57 Assessment/Plan VTE Prophylaxis VTE Prophylaxis Intervention: heparin Lines/Catheters IV Catheter Type (from Nrsg): Saline Lock Urinary Cath still in place: Yes Reason Cath still needed: urinary retention Assessment/Plan Chief Complaint/Hosp Course Assessment/Plan: 46-year-old female with a past medical history of chronic pain syndrome, hypothyroidism, gastroparesis 2/2 vagotomy, status post gastric bypass surgery in the past, pain and opioid dependence, depression, GERD, alcoholic liver disease, asthma presents with lower extremity redness and blistering, likely cellulitis, history of noncompliance as well. 1. Lower extremity erythema and swelling- patient has multiple admissions for this before, initial thought on admission was this was secondary to cellulitis. However, given low albumin, this may be from nutritional deficiency from inability to absorb nutrients from bypass surgery + decreased PO intake-->pt with severe protein calorie malnutrition, also B vitamin deficiency. -monitor for now -Continue Lasix PO BID -PT and OT consult -vp of digital marketing following -Continue B complex vitamin, thiamine, multivitamin, and now Megace daily 2. Headache: Head CT at the outside hospital was negative for acute processes -Pain management- f/u rec's 3. Hyponatremia-resolved Asymptomatic, monitor for now BMP every morning 4. History of alcoholic liver disease-although no cirrhosis identified on last CT scan from August 2016 -Continue diuresis 5. Opioid dependency Pain management consult on the case -For now continue MS Contin 3 times daily only for now, oxy IR as needed, follow -up final pain management consult recommendations 6. History of positive tumor markers with elevated CA 19-9, CA 125. and CEA : Patient has in the past been evaluated by oncology. CT chest/abdomen/pelvis was negative for malignancy. Colonoscopy also without finding of malignancy at that time. -Per oncology on last admission in August 2016, no need to do additional workup and no need to order additional tumor markers, monitor for now 7. History of Gastric bypass. Continue proton pump inhibitor. 8. Chronic depression -Continue antidepressant 9. Eye irritation: No signs of any discharge, although patient claims to have discharge from the right eye. -Continue gentamicin drops twice daily 3 days told 10. Dispo: Hospice eval pending, they want repeat MRSA screen, which appears to be positive for now, will continue Bactroban. -Patient DNR now, tentatively accepted to [facility] hosp[facility], follow-up with them regarding transfer to their care Problems: Subjective 24 Hr Interval Summary Free Text/Dictation Patient upset this morning because of changes made to her MS Contin. Worked with physical therapy yesterday. Per nursing staff, food intake appears to be adequate in the last 24 hours. Tentatively accepted to hospice yesterday, although they are waiting on final MRSA screen results. Exam/Review of Systems Vital Signs Vitals Vital Signs Date Time Temp Pulse Resp B/P Pulse Ox O2 Delivery O2 Flow Rate FiO2 11/20/16 07:19 98.4 113 20 90/59 96 11/17/16 02:00 Room Air Intake and Output 11/19/16 11/19/16 11/20/16 15:00 23:00 07:00 Intake Total 1990 ml 800 ml Output Total 650 ml 1600 ml Balance 1340 ml -800 ml Exam Lying in bed, cachectic Pupils equal round reactive to light, extraocular muscles intact no mrg lungs clear bilaterally abd soft +edema and some redness bilateral lower extremities, no warmth Results Result Diagram: 11/19/1684511/19/1646 Medications Medications Current Medications Ondansetron HCl (Zofran Inj) 4 mg Q6H PRN IV NAUSEA AND/OR VOMITING; Start at 21:30 Heparin Sodium (Porcine) (Heparin (5000 Units/0.5 ml)) 5,000 unit BID SC Last administered on 11/20/16 00:02; Admin Dose 5,000 UNIT; Start 11/11/16 at 09:00 Docusate Sodium (Colace) 100 mg BID PO Last administered on 11/19/16 09:32; Admin Dose 100 MG; Start 11/11/16 at 09:00 Folic Acid (Folic Acid) 1 mg DAILY PO Last administered on 11/19/16 09:35; Admin Dose 1 MG; Start 11/11/16 at 09:00 Pantoprazole (Protonix Tab) 40 mg DAILY@06 PO Last administered on 11/20/16 06 :23; Admin Dose 40 MG; Start 11/11/16 at 06:00 Gabapentin (Neurontin) 300 mg BID PO Last administered on 11/19/16 23:57; Admin Dose 300 MG; Start 11/11/16 at 09:00 Sucralfate (Carafate) 1 gm QID PO Last administered on 11/19/16 17:38; Admin Dose 1 GM; Start 11/11/16 at 09:00 Trazodone HCl (Desyrel) 50 mg HS PO Last administered on 11/17/16 20:40; Admin Dose 50 MG; Start 11/11/16 at 21:00 Venlafaxine HCl (Effexor Xr) 150 mg DAILY PO Last administered on 11/19/16 09: 35; Admin Dose 150 MG; Start 11/11/16 at 09:00 Oxycodone HCl (Roxicodone) 15 mg Q4H PRN PO PAIN LEVEL 6-10 Last administered on 11/20/16 06:25; Admin Dose 15 MG; Start 11/11/16 at 18:00 Ascorbic Acid (Vitamin C) 500 mg DAILY PO Last administered on 11/19/16 09:35 ; Admin Dose 500 MG; Start 11/13/16 at 09:00 Clobetasol Propionate (Temovate 0.05% Cr) 1 applic BID TOP Last administered on 11/19/16 09:31; Admin Dose 1 APPLIC; Start 11/12/16 at 21:00 Diphenhydramine HCl (Benadryl) 25 mg Q6H PRN PO ITCHING; Start 11/12/16 at 11: 00 Hydroxyzine HCl (Atarax) 50 mg Q6H PRN PO ITCHING; Start 11/12/16 at 11:00 Potassium Chloride (Potassium Chloride Pwd/Soln) 10 meq DAILY PO Last administered on 11/19/16 10:12; Admin Dose 10 MEQ; Start 11/12/16 at 11:30 Thiamine HCl (Vitamin B1) 100 mg DAILY PO Last administered on 11/19/16 09:35 ; Admin Dose 100 MG; Start 11/13/16 at 09:00 Tolterodine Tartrate (Detrol La) 4 mg DAILY PO Last administered on 11/19/16 09:32; Admin Dose 4 MG; Start 11/13/16 at 09:00 Zinc Sulfate (Zinc Sulfate) 220 mg DAILY PO Last administered on 11/19/16 09: 34; Admin Dose 220 MG; Start 11/13/16 at 09:00 Lactulose (Enulose) 20 gm Q8 PO Last administered on 11/20/16 06:23; Admin Dose 20 GM; Start 11/12/16 at 14:00 Lorazepam (Ativan) 0.5 mg Q6H PRN PO ANXIETY Last administered on 11/20/16 09: 13; Admin Dose 0.5 MG; Start 11/12/16 at 12:30 Eye Lubricant (Artificial Tears Oph) 2 drop Q6H PRN BOTH EYES DRY EYES Last administered on 11/19/16 10:11; Admin Dose 2 DROP; Start 11/12/16 at 16:00 Acetaminophen (Tylenol Tab) 325 mg Q4H PRN PO PAIN AND OR ELEVATED TEMP; Start 11/12/16 at 18:30 Vitamin B Complex/ Vitamin C (Berocca) 1 cap DAILY PO Last administered on 11/19 09:31; Admin Dose 1 CAP; Start 11/14/16 at 09:00 Nystatin (Nystatin Powder) 1 applic DAILY TOP Last administered on 11/19/16 09 :31; Admin Dose 1 APPLIC; Start 11/15/16 at 09:00 Multi-Ingredient Ointment (Eucerin Cream) 1 applic BID TOP Last administered on 11/19/16 09:30; Admin Dose 1 APPLIC; Start 11/17/16 at 08:22 Levothyroxine Sodium (Synthroid) 175 mcg DAILY@06 PO Last administered on 06:32; Admin Dose 175 MCG; Start 11/20/16 at 06:00 Montelukast Sodium (Singulair) 10 mg HS PO ; Start 11/19/16 at 21:00 Multivitamins Therapeutic (Theragran) 1 tab DAILY PO ; Start 11/20/16 at 09:00 Megestrol Acetate (Megace Susp) 400 mg DAILY PO Last administered on 11/19/16 12:50; Admin Dose 400 MG; Start 11/19/16 at 11:00; Stop 11/20/16 at 23:55 Gentamicin Sulfate (Gentamicin 0.3% Oph Drop) 1 drop BID BOTH EYES ; Start 11/19 at 11:00; Stop 11/21/16 at 23:55 Mupirocin (Bactroban) 1 applic BID TOP Last administered on 11/19/16 12:50; Admin Dose 1 APPLIC; Start 11/19/16 at 11:30 Nitrofurantoin Macrocrystals (Macrobid) 100 mg BID PO ; Start 11/20/16 at 11:00 Morphine Sulfate (Ms Contin (Er)) 15 mg Q8 PO ; Start 11/20/16 at 14:00; Status TOSIN CABAN Nov 20, 2016 10:02
[2016-11-20] MEDS: ZINC SULFATE 220 MG CAP PO SCH (10:55)
[2016-11-20] MEDS: MEGESTROL (40 MG/ML) 10ML CUP PO SCH (10:55)
[2016-11-20] MEDS: DOCUSATE SODIUM 100 MG CAP PO SCH ×2 (10:55→20:44)
[2016-11-20] MEDS: POTASSIUM CHLORIDE 20 MEQ POWDER FOR ORAL SOLN PO SCH (10:55)
[2016-11-20] MEDS: THIAMINE 100 MG TAB PO SCH (10:56)
[2016-11-20] MEDS: SUCRALFATE 1 GM TAB PO SCH ×4 (10:56→20:44)
[2016-11-20] MEDS: ASCORBIC ACID 500 MG TAB PO SCH (10:56)
[2016-11-20] MEDS: FOLIC ACID 1 MG TAB PO SCH (10:56)
[2016-11-20] MEDS: GENTAMICIN 0.3% 5 ML OPH BOTH EYES SCH ×2 (10:57→20:44)
[2016-11-20] MEDS: VENLAFAXINE (XR) 75 MG CAP PO SCH (10:57)
[2016-11-20] MEDS: GABAPENTIN 300 MG CAP PO SCH ×2 (10:57→20:43)
[2016-11-20] MEDS: MULTIVITAMINS THERAPEUTIC TAB PO SCH (10:57)
[2016-11-20] MEDS: VITAMIN B COMPLEX/VIT C CAP PO SCH (10:57)
[2016-11-20] MEDS: NITROFURANTOIN (SR) 100 MG CAP PO SCH ×2 (10:58→20:44)
[2016-11-20] MEDS: MUPIROCIN 2% 22 GM OINT TOP SCH ×2 (11:00→20:45)
[2016-11-20 11:01] LABS: BASOPHILS % 0.5 % (0.0-2.0); EOSINOPHILS # 0.2 10^3/ul (0.0-0.5); EOSINOPHILS % 2.5 % (0.0-7.0); HEMATOCRIT 22.2 % (37.0-47.0); HEMOGLOBIN 7.2 g/dl (12.0-16.0); LYMPHOCYTES # 2.5 10^3/ul (0.8-2.9); LYMPHOCYTES % 42.7 % (15.0-51.0); MEAN CORPUSCULAR HEMOGLOBIN 29.1 pg (29.0-33.0); MEAN CORPUSCULAR HGB CONC 32.4 g/dl (32.0-37.0); MEAN CORPUSCULAR VOLUME 89.9 fl (82.0-101.0); MEAN PLATELET VOLUME 10.8 fl (7.4-10.4); MONOCYTE # 0.5 10^3/ul (0.3-0.9); NEUTROPHILS % 46.1 % (39.0-77.0); PLATELET COUNT 164 10^3/UL (140-415); RED BLOOD COUNT 2.47 10^6/ul (4.20-5.40); RED CELL DISTRIBUTION WIDTH 21.4 % (11.5-14.5); WHITE BLOOD COUNT 5.9 10^3/ul (4.8-10.8)
[2016-11-20 11:20] LABS: MAGNESIUM 1.7 mg/dl (1.7-2.5); PHOSPHORUS 2.9 mg/dl (2.5-4.9)
[2016-11-20 13:35] VITALS: BP 101/67; RESP 20
[2016-11-20] MEDS: CLOBETASOL 0.05% 15 GM CR TOP SCH ×2 (14:18→20:45)
[2016-11-20 14:22] VITALS: BP 110/74; PULSE 101; RESP 18
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
[2016-11-20 19:34] VITALS: BP 121/93; RESP 20
[2016-11-20] MEDS: MONTELUKAST 10 MG TAB PO SCH (20:44)
[2016-11-20] MEDS: traZODone 50 MG TAB PO SCH (23:56)
[2016-11-21] MEDS: oxyCODONE 15 MG TAB PO PRN ×4 (00:38→21:31)
[2016-11-21] MEDS: LEVOTHYROXINE 175 MCG TAB PO SCH (07:01)
[2016-11-21] MEDS: morphine (ER) 15 MG TAB PO SCH ×3 (07:01→22:27)
[2016-11-21] MEDS: LACTULOSE 30ML CUP PO SCH ×3 (07:01→21:18)
[2016-11-21] MEDS: PANTOPRAZOLE (EC) 40 MG TAB PO SCH (07:01)
[2016-11-21] MEDS: FUROSEMIDE 20 MG TAB PO SCH ×2 (07:02→17:00)
[2016-11-21] MEDS: METOPROLOL 25 MG TAB PO SCH ×2 (09:00→21:00)
[2016-11-21] MEDS: TOLTERODINE (SR) 4 MG CAP PO SCH (09:22)
[2016-11-21] MEDS: VITAMIN B COMPLEX/VIT C CAP PO SCH (09:22)
[2016-11-21] MEDS: GENTAMICIN 0.3% 5 ML OPH BOTH EYES SCH ×2 (09:22→21:17)
[2016-11-21] MEDS: SUCRALFATE 1 GM TAB PO SCH ×4 (09:23→21:16)
[2016-11-21] MEDS: NITROFURANTOIN (SR) 100 MG CAP PO SCH ×2 (09:23→21:16)
[2016-11-21] MEDS: GABAPENTIN 300 MG CAP PO SCH ×2 (09:23→21:17)
[2016-11-21] MEDS: DOCUSATE SODIUM 100 MG CAP PO SCH ×2 (09:23→21:00)
[2016-11-21] MEDS: ZINC SULFATE 220 MG CAP PO SCH (09:23)
[2016-11-21] MEDS: ASCORBIC ACID 500 MG TAB PO SCH (09:23)
[2016-11-21] MEDS: FOLIC ACID 1 MG TAB PO SCH (09:24)
[2016-11-21] MEDS: MULTIVITAMINS THERAPEUTIC TAB PO SCH (09:24)
[2016-11-21] MEDS: THIAMINE 100 MG TAB PO SCH (09:24)
[2016-11-21] MEDS: VENLAFAXINE (XR) 75 MG CAP PO SCH (09:25)
[2016-11-21] MEDS: POTASSIUM CHLORIDE 20 MEQ POWDER FOR ORAL SOLN PO SCH (09:26)
[2016-11-21] MEDS: MUPIROCIN 2% 22 GM OINT TOP SCH ×2 (09:27→21:17)
[2016-11-21] MEDS: CLOBETASOL 0.05% 15 GM CR TOP SCH ×2 (09:27→21:00)
[2016-11-21] MEDS: EUCERIN 113 GM CR TOP SCH ×2 (09:27→21:17)
[2016-11-21] MEDS: NYSTATIN 30 GM POWDER BTL TOP SCH (09:28)
[2016-11-21] MEDS: LORAZEPAM 0.5 MG TAB PO PRN ×3 (09:35→22:28)
[2016-11-21] MEDS: HEPARIN 5,000 UNIT/0.5 ML VIAL SC SCH ×2 (09:42→21:30)
[2016-11-21 11:53] LABS: BASOPHIL # 0.1 10^3/ul (0.0-0.1); BASOPHILS % 0.5 % (0.0-2.0); EOSINOPHILS # 0.2 10^3/ul (0.0-0.5); HEMATOCRIT 26.6 % (37.0-47.0); HEMOGLOBIN 8.9 g/dl (12.0-16.0); LYMPHOCYTES # 3.8 10^3/ul (0.8-2.9); LYMPHOCYTES % 37.9 % (15.0-51.0); MEAN CORPUSCULAR HEMOGLOBIN 30.5 pg (29.0-33.0); MEAN CORPUSCULAR HGB CONC 33.5 g/dl (32.0-37.0); MEAN CORPUSCULAR VOLUME 91.1 fl (82.0-101.0); MEAN PLATELET VOLUME 10.7 fl (7.4-10.4); MONOCYTE # 0.8 10^3/ul (0.3-0.9); MONOCYTES % 8.3 % (0.0-11.0); PLATELET COUNT 215 10^3/UL (140-415); RED BLOOD COUNT 2.92 10^6/ul (4.20-5.40); RED CELL DISTRIBUTION WIDTH 21.8 % (11.5-14.5)
--- NOTE | 2016-11-21 12:20 | PN ---
Date/Time of Note Date/Time of Note DATE: 11/21/16 TIME: 12:16 Assessment/Plan VTE Prophylaxis VTE Prophylaxis Intervention: heparin Lines/Catheters IV Catheter Type (from Nrsg): Saline Lock Urinary Cath still in place: Yes Reason Cath still needed: urinary retention Assessment/Plan Chief Complaint/Hosp Course Assessment/Plan: 46-year-old female with a past medical history of chronic pain syndrome, hypothyroidism, gastroparesis 2/2 vagotomy, status post gastric bypass surgery in the past, pain and opioid dependence, depression, GERD, alcoholic liver disease, asthma presents with lower extremity redness and blistering, likely cellulitis, history of noncompliance as well. 1. Lower extremity erythema and swelling- patient has multiple admissions for this before, initial thought on admission was this was secondary to cellulitis. However, given low albumin, this may be from nutritional deficiency from inability to absorb nutrients from bypass surgery + decreased PO intake-->pt with severe protein calorie malnutrition, also B vitamin deficiency. -monitor for now -Continue Lasix PO BID -PT and OT consult follow-up their recommendations -cosmetic consultant following -Continue B complex vitamin, thiamine, multivitamin, and now Megace daily 2. Headache: Head CT at the outside hospital was negative for acute processes -Pain management- f/u rec's 3. Hyponatremia-resolved Asymptomatic, monitor for now BMP every morning 4. History of alcoholic liver disease-although no cirrhosis identified on last CT scan from August 2016 -Continue diuresis 5. Opioid dependency Pain management consult on the case -For now continue MS Contin 3 times daily only for now, oxy IR as needed, follow -up final pain management consult recommendations 6. History of positive tumor markers with elevated CA 19-9, CA 125. and CEA : Patient has in the past been evaluated by oncology. CT chest/abdomen/pelvis was negative for malignancy. Colonoscopy also without finding of malignancy at that time. -Per oncology on last admission in August 2016, no need to do additional workup and no need to order additional tumor markers, monitor for now 7. History of Gastric bypass. Continue proton pump inhibitor. 8. Chronic depression -Continue antidepressant 9. Eye irritation: No signs of any discharge, although patient claims to have discharge from the right eye. -Continue gentamicin drops twice daily 3 days told 10. 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 Seen by another hospice team yesterday. Having slightly better diet in the last couple of days. Exam/Review of Systems Vital Signs Vitals Vital Signs Date Time Temp Pulse Resp B/P Pulse Ox O2 Delivery O2 Flow Rate FiO2 11/20/16 19:34 98.3 102 20 121/93 100 11/20/16 15:33 21 11/20/16 14:22 Room Air Intake and Output 11/20/16 11/20/16 11/21/16 15:00 23:00 07:00 Intake Total 1500 ml 480 ml Output Total 1875 ml 2100 ml Balance -375 ml -1620 ml Exam Lying in bed, cachectic Pupils equal round reactive to light, extraocular muscles intact no mrg lungs clear bilaterally abd soft +edema and some redness bilateral lower extremities, no warmth Results Result Diagram: 11/21/16 0950 11/19/16 0846 Results 24 hrs Laboratory Tests Test 11/21/16 09:50 White Blood Count 10.0 # Red Blood Count 2.92 L Hemoglobin 8.9 #L Hematocrit 26.6 L Mean Corpuscular Volume 91.1 Mean Corpuscular Hemoglobin 30.5 Mean Corpuscular Hemoglobin Concent 33.5 Red Cell Distribution Width 21.8 H Platelet Count 215 # Mean Platelet Volume 10.7 H Neutrophils % 51.0 Lymphocytes % 37.9 Monocytes % 8.3 Eosinophils % 2.0 Basophils % 0.5 Nucleated Red Blood Cells % 0.0 Neutrophils # (Manual) 5.1 Lymphocytes # 3.8 H Monocytes # 0.8 Eosinophils # 0.2 Basophils # 0.1 Nucleated Red Blood Cells # 0.0 Medications Medications Current Medications Ondansetron HCl (Zofran Inj) 4 mg Q6H PRN IV NAUSEA AND/OR VOMITING; Start at 21:30 Heparin Sodium (Porcine) (Heparin (5000 Units/0.5 ml)) 5,000 unit BID SC Last administered on 11/21/16 09:42; Admin Dose 5,000 UNIT; Start 11/11/16 at 09:00 Docusate Sodium (Colace) 100 mg BID PO Last administered on 11/21/16 09:23; Admin Dose 100 MG; Start 11/11/16 at 09:00 Folic Acid (Folic Acid) 1 mg DAILY PO Last administered on 11/21/16 09:24; Admin Dose 1 MG; Start 11/11/16 at 09:00 Pantoprazole (Protonix Tab) 40 mg DAILY@06 PO Last administered on 11/21/16 07 :01; Admin Dose 40 MG; Start 11/11/16 at 06:00 Gabapentin (Neurontin) 300 mg BID PO Last administered on 11/21/16 09:23; Admin Dose 300 MG; Start 11/11/16 at 09:00 Sucralfate (Carafate) 1 gm QID PO Last administered on 11/21/16 09:23; Admin Dose 1 GM; Start 11/11/16 at 09:00 Trazodone HCl (Desyrel) 50 mg HS PO Last administered on 11/20/16 23:56; Admin Dose 50 MG; Start 11/11/16 at 21:00 Venlafaxine HCl (Effexor Xr) 150 mg DAILY PO Last administered on 11/21/16 09: 25; Admin Dose 150 MG; Start 11/11/16 at 09:00 Oxycodone HCl (Roxicodone) 15 mg Q4H PRN PO PAIN LEVEL 6-10 Last administered on 11/21/16 09:35; Admin Dose 15 MG; Start 11/11/16 at 18:00 Ascorbic Acid (Vitamin C) 500 mg DAILY PO Last administered on 11/21/16 09:23 ; Admin Dose 500 MG; Start 11/13/16 at 09:00 Clobetasol Propionate (Temovate 0.05% Cr) 1 applic BID TOP Last administered on 11/21/16 09:27; Admin Dose 1 APPLIC; Start 11/12/16 at 21:00 Diphenhydramine HCl (Benadryl) 25 mg Q6H PRN PO ITCHING; Start 11/12/16 at 11: 00 Hydroxyzine HCl (Atarax) 50 mg Q6H PRN PO ITCHING; Start 11/12/16 at 11:00 Potassium Chloride (Potassium Chloride Pwd/Soln) 10 meq DAILY PO Last administered on 11/21/16 09:26; Admin Dose 10 MEQ; Start 11/12/16 at 11:30 Thiamine HCl (Vitamin B1) 100 mg DAILY PO Last administered on 11/21/16 09:24 ; Admin Dose 100 MG; Start 11/13/16 at 09:00 Tolterodine Tartrate (Detrol La) 4 mg DAILY PO Last administered on 11/21/16 09:22; Admin Dose 4 MG; Start 11/13/16 at 09:00 Zinc Sulfate (Zinc Sulfate) 220 mg DAILY PO Last administered on 11/21/16 09: 23; Admin Dose 220 MG; Start 11/13/16 at 09:00 Lactulose (Enulose) 20 gm Q8 PO Last administered on 11/21/16 07:01; Admin Dose 20 GM; Start 11/12/16 at 14:00 Lorazepam (Ativan) 0.5 mg Q6H PRN PO ANXIETY Last administered on 11/21/16 09: 35; Admin Dose 0.5 MG; Start 11/12/16 at 12:30 Eye Lubricant (Artificial Tears Oph) 2 drop Q6H PRN BOTH EYES DRY EYES Last administered on 11/19/16 10:11; Admin Dose 2 DROP; Start 11/12/16 at 16:00 Acetaminophen (Tylenol Tab) 325 mg Q4H PRN PO PAIN AND OR ELEVATED TEMP; Start 11/12/16 at 18:30 Vitamin B Complex/ Vitamin C (Berocca) 1 cap DAILY PO Last administered on 11/21 09:22; Admin Dose 1 CAP; Start 11/14/16 at 09:00 Nystatin (Nystatin Powder) 1 applic DAILY TOP Last administered on 11/21/16 09 :28; Admin Dose 1 APPLIC; Start 11/15/16 at 09:00 Multi-Ingredient Ointment (Eucerin Cream) 1 applic BID TOP Last administered on 11/21/16 09:27; Admin Dose 1 APPLIC; Start 11/17/16 at 08:22 Levothyroxine Sodium (Synthroid) 175 mcg DAILY@06 PO Last administered on 07:01; Admin Dose 175 MCG; Start 11/20/16 at 06:00 Montelukast Sodium (Singulair) 10 mg HS PO Last administered on 11/20/16 20:44 ; Admin Dose 10 MG; Start 11/19/16 at 21:00 Multivitamins Therapeutic (Theragran) 1 tab DAILY PO Last administered on 09:24; Admin Dose 1 TAB; Start 11/20/16 at 09:00 Gentamicin Sulfate (Gentamicin 0.3% Oph Drop) 1 drop BID BOTH EYES Last administered on 11/21/16 09:22; Admin Dose 1 DROP; Start 11/19/16 at 11:00; Stop 11/21/16 at 23:55 Mupirocin (Bactroban) 1 applic BID TOP Last administered on 11/21/16 09:27; Admin Dose 1 APPLIC; Start 11/19/16 at 11:30 Nitrofurantoin Macrocrystals (Macrobid) 100 mg BID PO Last administered on 11/21 09:23; Admin Dose 100 MG; Start 11/20/16 at 11:00 Morphine Sulfate (Ms Contin (Er)) 15 mg Q8 PO Last administered on 11/21/16 07 :01; Admin Dose 15 MG; Start 11/20/16 at 14:00 Metoprolol Tartrate (Lopressor) 12.5 mg BID PO ; Start 11/20/16 at 10:00 TOSIN ENCARNACION Nov 21, 2016 12:20
[2016-11-21 12:57] VITALS: BP 113/69; RESP 20
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
[2016-11-21 20:00] VITALS: BP 98/66; RESP 16
[2016-11-21] MEDS: traZODone 50 MG TAB PO SCH (21:00)
[2016-11-21] MEDS: MONTELUKAST 10 MG TAB PO SCH (21:17)
[2016-11-22] MEDS: oxyCODONE 15 MG TAB PO PRN ×5 (01:30→21:40)
[2016-11-22 02:00] VITALS: BP 101/62; RESP 18
[2016-11-22] MEDS: PANTOPRAZOLE (EC) 40 MG TAB PO SCH (05:37)
[2016-11-22] MEDS: LEVOTHYROXINE 175 MCG TAB PO SCH (05:37)
[2016-11-22] MEDS: FUROSEMIDE 20 MG TAB PO SCH ×2 (05:39→18:02)
[2016-11-22] MEDS: LACTULOSE 30ML CUP PO SCH ×3 (05:40→22:10)
[2016-11-22] MEDS: LORAZEPAM 0.5 MG TAB PO PRN ×3 (06:09→21:30)
[2016-11-22] MEDS: morphine (ER) 15 MG TAB PO SCH ×3 (06:09→22:10)
[2016-11-22 08:32] VITALS: BP 95/63; RESP 18
[2016-11-22] MEDS: METOPROLOL 25 MG TAB PO SCH ×2 (09:00→21:00)
[2016-11-22] MEDS: HEPARIN 5,000 UNIT/0.5 ML VIAL SC SCH ×2 (09:00→21:00)
[2016-11-22] MEDS: DOCUSATE SODIUM 100 MG CAP PO SCH ×2 (09:00→21:00)
[2016-11-22] MEDS: TOLTERODINE (SR) 4 MG CAP PO SCH (09:53)
[2016-11-22] MEDS: VITAMIN B COMPLEX/VIT C CAP PO SCH (09:53)
[2016-11-22] MEDS: ZINC SULFATE 220 MG CAP PO SCH (09:53)
[2016-11-22] MEDS: THIAMINE 100 MG TAB PO SCH (09:53)
[2016-11-22] MEDS: FOLIC ACID 1 MG TAB PO SCH (09:54)
[2016-11-22] MEDS: ASCORBIC ACID 500 MG TAB PO SCH (09:54)
[2016-11-22] MEDS: VENLAFAXINE (XR) 75 MG CAP PO SCH (09:54)
[2016-11-22] MEDS: GABAPENTIN 300 MG CAP PO SCH ×2 (09:54→21:30)
[2016-11-22] MEDS: SUCRALFATE 1 GM TAB PO SCH ×4 (09:54→21:30)
[2016-11-22] MEDS: MULTIVITAMINS THERAPEUTIC TAB PO SCH (09:55)
[2016-11-22] MEDS: NITROFURANTOIN (SR) 100 MG CAP PO SCH ×2 (09:56→21:30)
[2016-11-22] MEDS: MUPIROCIN 2% 22 GM OINT TOP SCH ×2 (09:57→21:31)
[2016-11-22] MEDS: POTASSIUM CHLORIDE 20 MEQ POWDER FOR ORAL SOLN PO SCH (09:57)
[2016-11-22] MEDS: EUCERIN 113 GM CR TOP SCH ×2 (09:57→21:32)
[2016-11-22] MEDS: CLOBETASOL 0.05% 15 GM CR TOP SCH ×2 (09:58→21:00)
[2016-11-22] MEDS: NYSTATIN 30 GM POWDER BTL TOP SCH (09:58)
--- NOTE | 2016-11-22 11:09 | PN ---
Date/Time of Note Date/Time of Note DATE: 11/22/16 TIME: 11:03 Assessment/Plan VTE Prophylaxis VTE Prophylaxis Intervention: heparin Lines/Catheters IV Catheter Type (from Nrsg): Saline Lock Urinary Cath still in place: Yes Reason Cath still needed: urinary retention Assessment/Plan Chief Complaint/Hosp Course Assessment/Plan: 46-year-old female with a past medical history of chronic pain syndrome, hypothyroidism, gastroparesis 2/2 vagotomy, status post gastric bypass surgery in the past, pain and opioid dependence, depression, GERD, alcoholic liver disease, asthma presents with lower extremity redness and blistering, likely cellulitis, history of noncompliance as well. 1. Lower extremity erythema and swelling- patient has multiple admissions for this before, initial thought on admission was this was secondary to cellulitis. However, given low albumin, this may be from nutritional deficiency from inability to absorb nutrients from bypass surgery + decreased PO intake-->pt with severe protein calorie malnutrition, also B vitamin deficiency. 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 Headache: Head CT at the outside hospital was negative for acute processes -Pain management- f/u rec's 3. Hyponatremia-resolved Asymptomatic, monitor for now BMP every morning 4. History of alcoholic liver disease-although no cirrhosis identified on last CT scan from August 2016 -Continue diuresis 5. Opioid dependency Pain management consult on the case -For now continue MS Contin 3 times daily only for now, oxy IR as needed, follow -up final pain management consult recommendations 6. History of positive tumor markers with elevated CA 19-9, CA 125. and CEA : Patient has in the past been evaluated by oncology. CT chest/abdomen/pelvis was negative for malignancy. Colonoscopy also without finding of malignancy at that time. -Per oncology on last admission in August 2016, no need to do additional workup and no need to order additional tumor markers, monitor for now 7. History of Gastric bypass. Continue proton pump inhibitor. 8. Chronic depression -Continue antidepressant 9. Eye irritation: No signs of any discharge, although patient claims to have discharge from the right eye. -Continue gentamicin drops twice daily 3 days told 10. Hypothyroidism: Patient on levothyroxine. Her last thyroid panel is her back in June in August 2016. She is having some tachycardia presently as well. -We will recheck thyroid panel today, and make adjustments accordingly to the levothyroxine if needed. 10. 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 Otherwise no acute events overnight although patient did refuse physical therapy yesterday. Exam/Review of Systems Vital Signs Vitals Vital Signs Date Time Temp Pulse Resp B/P Pulse Ox O2 Delivery O2 Flow Rate FiO2 11/22/16 08:32 98.2 97 18 95/63 98 11/20/16 15:33 21 11/20/16 14:22 Room Air Intake and Output 11/21/16 11/21/16 11/22/16 15:00 23:00 07:00 Intake Total 360 ml 960 ml Output Total 600 ml 1500 ml Balance -240 ml -540 ml Exam Lying in bed, cachectic Pupils equal round reactive to light, extraocular muscles intact no mrg lungs clear bilaterally abd soft +edema and some redness bilateral lower extremities, no warmth Results Result Diagram: 11/21/16 0950 11/19/16 0846 Medications Medications Current Medications Ondansetron HCl (Zofran Inj) 4 mg Q6H PRN IV NAUSEA AND/OR VOMITING; Start at 21:30 Heparin Sodium (Porcine) (Heparin (5000 Units/0.5 ml)) 5,000 unit BID SC Last administered on 11/21/16 21:30; Admin Dose 5,000 UNIT; Start 11/11/16 at 09:00 Docusate Sodium (Colace) 100 mg BID PO Last administered on 11/21/16 09:23; Admin Dose 100 MG; Start 11/11/16 at 09:00 Folic Acid (Folic Acid) 1 mg DAILY PO Last administered on 11/22/16 09:54; Admin Dose 1 MG; Start 11/11/16 at 09:00 Pantoprazole (Protonix Tab) 40 mg DAILY@06 PO Last administered on 11/22/16 05 :37; Admin Dose 40 MG; Start 11/11/16 at 06:00 Gabapentin (Neurontin) 300 mg BID PO Last administered on 11/22/16 09:54; Admin Dose 300 MG; Start 11/11/16 at 09:00 Sucralfate (Carafate) 1 gm QID PO Last administered on 11/22/16 09:54; Admin Dose 1 GM; Start 11/11/16 at 09:00 Trazodone HCl (Desyrel) 50 mg HS PO Last administered on 11/20/16 23:56; Admin Dose 50 MG; Start 11/11/16 at 21:00 Venlafaxine HCl (Effexor Xr) 150 mg DAILY PO Last administered on 11/22/16 09: 54; Admin Dose 150 MG; Start 11/11/16 at 09:00 Oxycodone HCl (Roxicodone) 15 mg Q4H PRN PO PAIN LEVEL 6-10 Last administered on 11/22/16 10:01; Admin Dose 15 MG; Start 11/11/16 at 18:00 Ascorbic Acid (Vitamin C) 500 mg DAILY PO Last administered on 11/22/16 09:54 ; Admin Dose 500 MG; Start 11/13/16 at 09:00 Clobetasol Propionate (Temovate 0.05% Cr) 1 applic BID TOP Last administered on 11/22/16 09:58; Admin Dose 1 APPLIC; Start 11/12/16 at 21:00 Diphenhydramine HCl (Benadryl) 25 mg Q6H PRN PO ITCHING; Start 11/12/16 at 11: 00 Hydroxyzine HCl (Atarax) 50 mg Q6H PRN PO ITCHING; Start 11/12/16 at 11:00 Potassium Chloride (Potassium Chloride Pwd/Soln) 10 meq DAILY PO Last administered on 11/22/16 09:57; Admin Dose 10 MEQ; Start 11/12/16 at 11:30 Thiamine HCl (Vitamin B1) 100 mg DAILY PO Last administered on 11/22/16 09:53 ; Admin Dose 100 MG; Start 11/13/16 at 09:00 Tolterodine Tartrate (Detrol La) 4 mg DAILY PO Last administered on 11/22/16 09:53; Admin Dose 4 MG; Start 11/13/16 at 09:00 Zinc Sulfate (Zinc Sulfate) 220 mg DAILY PO Last administered on 11/22/16 09: 53; Admin Dose 220 MG; Start 11/13/16 at 09:00 Lactulose (Enulose) 20 gm Q8 PO Last administered on 11/21/16 07:01; Admin Dose 20 GM; Start 11/12/16 at 14:00 Lorazepam (Ativan) 0.5 mg Q6H PRN PO ANXIETY Last administered on 11/22/16 06: 09; Admin Dose 0.5 MG; Start 11/12/16 at 12:30 Eye Lubricant (Artificial Tears Oph) 2 drop Q6H PRN BOTH EYES DRY EYES Last administered on 11/19/16 10:11; Admin Dose 2 DROP; Start 11/12/16 at 16:00 Acetaminophen (Tylenol Tab) 325 mg Q4H PRN PO PAIN AND OR ELEVATED TEMP; Start 11/12/16 at 18:30 Vitamin B Complex/ Vitamin C (Berocca) 1 cap DAILY PO Last administered on 11/22 09:53; Admin Dose 1 CAP; Start 11/14/16 at 09:00 Nystatin (Nystatin Powder) 1 applic DAILY TOP Last administered on 11/22/16 09 :58; Admin Dose 1 APPLIC; Start 11/15/16 at 09:00 Multi-Ingredient Ointment (Eucerin Cream) 1 applic BID TOP Last administered on 11/22/16 09:57; Admin Dose 1 APPLIC; Start 11/17/16 at 08:22 Levothyroxine Sodium (Synthroid) 175 mcg DAILY@06 PO Last administered on 05:37; Admin Dose 175 MCG; Start 11/20/16 at 06:00 Montelukast Sodium (Singulair) 10 mg HS PO Last administered on 11/21/16 21:17 ; Admin Dose 10 MG; Start 11/19/16 at 21:00 Multivitamins Therapeutic (Theragran) 1 tab DAILY PO Last administered on 09:55; Admin Dose 1 TAB; Start 11/20/16 at 09:00 Mupirocin (Bactroban) 1 applic BID TOP Last administered on 11/22/16 09:57; Admin Dose 1 APPLIC; Start 11/19/16 at 11:30 Nitrofurantoin Macrocrystals (Macrobid) 100 mg BID PO Last administered on 11/22 09:56; Admin Dose 100 MG; Start 11/20/16 at 11:00 Morphine Sulfate (Ms Contin (Er)) 15 mg Q8 PO Last administered on 11/22/16 06 :09; Admin Dose 15 MG; Start 11/20/16 at 14:00 Metoprolol Tartrate (Lopressor) 12.5 mg BID PO ; Start 11/20/16 at 10:00 TOSIN ENCARNACION Nov 22, 2016 11:09
[2016-11-22 14:00] VITALS: BP 101/62; PULSE 104; RESP 19
[2016-11-22 14:56] LABS: BASOPHILS % 0.6 % (0.0-2.0); EOSINOPHILS # 0.3 10^3/ul (0.0-0.5); EOSINOPHILS % 3.9 % (0.0-7.0); HEMATOCRIT 25.4 % (37.0-47.0); HEMOGLOBIN 8.1 g/dl (12.0-16.0); LYMPHOCYTES # 2.7 10^3/ul (0.8-2.9); LYMPHOCYTES % 38.9 % (15.0-51.0); MEAN CORPUSCULAR HEMOGLOBIN 30.2 pg (29.0-33.0); MEAN CORPUSCULAR HGB CONC 31.9 g/dl (32.0-37.0); MEAN CORPUSCULAR VOLUME 94.8 fl (82.0-101.0); MEAN PLATELET VOLUME 10.7 fl (7.4-10.4); MONOCYTE # 0.5 10^3/ul (0.3-0.9); MONOCYTES % 7.2 % (0.0-11.0); NEUTROPHILS % 49.3 % (39.0-77.0); PLATELET COUNT 194 10^3/UL (140-415); RED BLOOD COUNT 2.68 10^6/ul (4.20-5.40); RED CELL DISTRIBUTION WIDTH 21.9 % (11.5-14.5); WHITE BLOOD COUNT 6.9 10^3/ul (4.8-10.8)
[2016-11-22 20:28] VITALS: BP 103/75; RESP 18
[2016-11-22] MEDS: traZODone 50 MG TAB PO SCH (21:00)
[2016-11-22] MEDS: MONTELUKAST 10 MG TAB PO SCH (21:30)
[2016-11-23 02:00] VITALS: BP 87/57; RESP 18
[2016-11-23] MEDS: LEVOTHYROXINE 175 MCG TAB PO SCH (06:38)
[2016-11-23] MEDS: PANTOPRAZOLE (EC) 40 MG TAB PO SCH (06:38)
[2016-11-23 06:39] VITALS: BP 103/61; PULSE 104; RESP 18
[2016-11-23] MEDS: FUROSEMIDE 20 MG TAB PO SCH ×2 (06:39→17:41)
[2016-11-23] MEDS: morphine (ER) 15 MG TAB PO SCH ×3 (06:39→22:36)
[2016-11-23] MEDS: LACTULOSE 30ML CUP PO SCH ×3 (06:39→22:36)
[2016-11-23 08:22] VITALS: BP 97/66; RESP 18
[2016-11-23] MEDS: METOPROLOL 25 MG TAB PO SCH ×2 (09:00→20:57)
[2016-11-23] MEDS: HEPARIN 5,000 UNIT/0.5 ML VIAL SC SCH ×2 (09:00→20:58)
[2016-11-23] MEDS: POTASSIUM CHLORIDE 20 MEQ POWDER FOR ORAL SOLN PO SCH (09:32)
[2016-11-23] MEDS: VENLAFAXINE (XR) 75 MG CAP PO SCH (09:32)
[2016-11-23] MEDS: TOLTERODINE (SR) 4 MG CAP PO SCH (09:32)
[2016-11-23] MEDS: NITROFURANTOIN (SR) 100 MG CAP PO SCH ×2 (09:32→20:57)
[2016-11-23] MEDS: ZINC SULFATE 220 MG CAP PO SCH (09:33)
[2016-11-23] MEDS: THIAMINE 100 MG TAB PO SCH (09:33)
[2016-11-23] MEDS: VITAMIN B COMPLEX/VIT C CAP PO SCH (09:33)
[2016-11-23] MEDS: DOCUSATE SODIUM 100 MG CAP PO SCH ×2 (09:34→20:57)
[2016-11-23] MEDS: MULTIVITAMINS THERAPEUTIC TAB PO SCH (09:34)
[2016-11-23] MEDS: ASCORBIC ACID 500 MG TAB PO SCH (09:34)
[2016-11-23] MEDS: SUCRALFATE 1 GM TAB PO SCH ×4 (09:34→20:57)
[2016-11-23] MEDS: FOLIC ACID 1 MG TAB PO SCH (09:34)
[2016-11-23] MEDS: GABAPENTIN 300 MG CAP PO SCH ×2 (09:34→20:57)
[2016-11-23] MEDS: EUCERIN 113 GM CR TOP SCH ×2 (09:35→20:58)
[2016-11-23] MEDS: MUPIROCIN 2% 22 GM OINT TOP SCH ×2 (09:36→20:59)
[2016-11-23] MEDS: NYSTATIN 30 GM POWDER BTL TOP SCH (09:37)
[2016-11-23] MEDS: CLOBETASOL 0.05% 15 GM CR TOP SCH ×2 (09:38→20:59)
[2016-11-23 09:41] LABS: ABNORMAL IP MESSAGE 1; BASOPHILS % 0.7 % (0.0-2.0); EOSINOPHILS # 0.2 10^3/ul (0.0-0.5); EOSINOPHILS % 3.1 % (0.0-7.0); HEMATOCRIT 26.5 % (37.0-47.0); HEMOGLOBIN 8.5 g/dl (12.0-16.0); LYMPHOCYTES # 2.3 10^3/ul (0.8-2.9); LYMPHOCYTES % 42.5 % (15.0-51.0); MEAN CORPUSCULAR HGB CONC 32.1 g/dl (32.0-37.0); MEAN CORPUSCULAR VOLUME 93.6 fl (82.0-101.0); MEAN PLATELET VOLUME 10.7 fl (7.4-10.4); MONOCYTE # 0.5 10^3/ul (0.3-0.9); MONOCYTES % 9.3 % (0.0-11.0); NEUTROPHILS % 44.2 % (39.0-77.0); PLATELET COUNT 209 10^3/UL (140-415); RED BLOOD COUNT 2.83 10^6/ul (4.20-5.40); RED CELL DISTRIBUTION WIDTH 22.1 % (11.5-14.5); WHITE BLOOD COUNT 5.5 10^3/ul (4.8-10.8)
[2016-11-23] MEDS: LORAZEPAM 0.5 MG TAB PO PRN ×2 (10:03→20:57)
[2016-11-23 10:04] LABS: POSITIVE DIFF @See below
[2016-11-23] MEDS: oxyCODONE 15 MG TAB PO PRN ×3 (10:04→21:31)
[2016-11-23 10:13] LABS: CALCIUM 7.6 mg/dl (8.4-10.2); CREATININE 0.58 mg/dl (0.44-1.00)
--- NOTE | 2016-11-23 11:56 | PN ---
Date/Time of Note Date/Time of Note DATE: 11/23/16 TIME: 11:54 Assessment/Plan VTE Prophylaxis VTE Prophylaxis Intervention: heparin Lines/Catheters IV Catheter Type (from Nrsg): Saline Lock Urinary Cath still in place: Yes Reason Cath still needed: urinary retention Assessment/Plan Chief Complaint/Hosp Course Assessment/Plan: 46-year-old female with a past medical history of chronic pain syndrome, hypothyroidism, gastroparesis 2/2 vagotomy, status post gastric bypass surgery in the past, pain and opioid dependence, depression, GERD, alcoholic liver disease, asthma presents with lower extremity redness and blistering, likely cellulitis, history of noncompliance as well. 1. Lower extremity erythema and swelling- patient has multiple admissions for this before, initial thought on admission was this was secondary to cellulitis. However, given low albumin, this may be from nutritional deficiency from inability to absorb nutrients from bypass surgery + decreased PO intake-->pt with severe protein calorie malnutrition, also B vitamin deficiency. 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 Headache: Head CT at the outside hospital was negative for acute processes -Pain management- f/u rec's 3. Hyponatremia-resolved Asymptomatic, monitor for now BMP every morning 4. History of alcoholic liver disease-although no cirrhosis identified on last CT scan from August 2016 -Continue diuresis 5. Opioid dependency Pain management consult on the case -For now continue MS Contin 3 times daily only for now, oxy IR as needed, follow -up final pain management consult recommendations 6. History of positive tumor markers with elevated CA 19-9, CA 125. and CEA : Patient has in the past been evaluated by oncology. CT chest/abdomen/pelvis was negative for malignancy. Colonoscopy also without finding of malignancy at that time. -Per oncology on last admission in August 2016, no need to do additional workup and no need to order additional tumor markers, monitor for now 7. History of Gastric bypass. Continue proton pump inhibitor. 8. Chronic depression -Continue antidepressant 9. Eye irritation: No signs of any discharge, although patient claims to have discharge from the right eye. -Continue gentamicin drops twice daily 3 days told 10. Hypothyroidism: Patient on levothyroxine. Her last thyroid panel is her back in June in August 2016. She is having some tachycardia presently as well. Her repeat thyroid panel does show low free T4 levels and slightly high TSH levels. -We will hold levothyroxine today, and start lower dose of levothyroxine at 88 mcg on November 25, 2016 10. 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 Otherwise no acute events overnight. Exam/Review of Systems Vital Signs Vitals Vital Signs Date Time Temp Pulse Resp B/P Pulse Ox O2 Delivery O2 Flow Rate FiO2 11/23/16 08:22 99.0 106 18 97/66 98 11/22/16 14:00 Room Air 11/20/16 15:33 21 Intake and Output 11/22/16 11/22/16 11/23/16 15:00 23:00 07:00 Intake Total 940 ml 500 ml Output Total 1600 ml 800 ml Balance -660 ml -300 ml Exam Lying in bed, cachectic Pupils equal round reactive to light, extraocular muscles intact no mrg lungs clear bilaterally abd soft +edema and some redness bilateral lower extremities, no warmth Results Result Diagram: 11/23/16 0916 11/23/16 0916 Results 24 hrs Laboratory Tests Test 11/22/16 14:32 11/23/16 09:16 White Blood Count 6.9 # 5.5 # Red Blood Count 2.68 L 2.83 L Hemoglobin 8.1 L 8.5 L Hematocrit 25.4 L 26.5 L Mean Corpuscular Volume 94.8 93.6 Mean Corpuscular Hemoglobin 30.2 30.0 Mean Corpuscular Hemoglobin Concent 31.9 L 32.1 Red Cell Distribution Width 21.9 H 22.1 H Platelet Count 194 209 Mean Platelet Volume 10.7 H 10.7 H Neutrophils % 49.3 44.2 Lymphocytes % 38.9 42.5 Monocytes % 7.2 9.3 Eosinophils % 3.9 3.1 Basophils % 0.6 0.7 Nucleated Red Blood Cells % 0.0 0.0 Neutrophils # (Manual) 3.4 2.4 Lymphocytes # 2.7 2.3 Monocytes # 0.5 0.5 Eosinophils # 0.3 0.2 Basophils # 0.0 0.0 Nucleated Red Blood Cells # 0.0 0.0 Thyroid Stimulating Hormone (TSH) 0.075 L Free Thyroxine 3.31 H Sodium Level 137 Potassium Level 4.0 Chloride Level 106 Carbon Dioxide Level 25 Anion Gap 10 Blood Urea Nitrogen 4 L Creatinine 0.58 Glucose Level 76 Calcium Level 7.6 L Medications Medications Current Medications Ondansetron HCl (Zofran Inj) 4 mg Q6H PRN IV NAUSEA AND/OR VOMITING; Start at 21:30 Heparin Sodium (Porcine) (Heparin (5000 Units/0.5 ml)) 5,000 unit BID SC Last administered on 11/21/16 21:30; Admin Dose 5,000 UNIT; Start 11/11/16 at 09:00 Docusate Sodium (Colace) 100 mg BID PO Last administered on 11/23/16 09:34; Admin Dose 100 MG; Start 11/11/16 at 09:00 Folic Acid (Folic Acid) 1 mg DAILY PO Last administered on 11/23/16 09:34; Admin Dose 1 MG; Start 11/11/16 at 09:00 Pantoprazole (Protonix Tab) 40 mg DAILY@06 PO Last administered on 11/23/16 06: 38; Admin Dose 40 MG; Start 11/11/16 at 06:00 Gabapentin (Neurontin) 300 mg BID PO Last administered on 11/23/16 09:34; Admin Dose 300 MG; Start 11/11/16 at 09:00 Sucralfate (Carafate) 1 gm QID PO Last administered on 11/23/16 09:34; Admin Dose 1 GM; Start 11/11/16 at 09:00 Trazodone HCl (Desyrel) 50 mg HS PO Last administered on 11/20/16 23:56; Admin Dose 50 MG; Start 11/11/16 at 21:00 Venlafaxine HCl (Effexor Xr) 150 mg DAILY PO Last administered on 11/23/16 09: 32; Admin Dose 150 MG; Start 11/11/16 at 09:00 Oxycodone HCl (Roxicodone) 15 mg Q4H PRN PO PAIN LEVEL 6-10 Last administered on 11/23/16 10:04; Admin Dose 15 MG; Start 11/11/16 at 18:00 Ascorbic Acid (Vitamin C) 500 mg DAILY PO Last administered on 11/23/16 09:34; Admin Dose 500 MG; Start 11/13/16 at 09:00 Clobetasol Propionate (Temovate 0.05% Cr) 1 applic BID TOP Last administered on 11/23/16 09:38; Admin Dose 1 APPLIC; Start 11/12/16 at 21:00 Diphenhydramine HCl (Benadryl) 25 mg Q6H PRN PO ITCHING; Start 11/12/16 at 11: 00 Hydroxyzine HCl (Atarax) 50 mg Q6H PRN PO ITCHING; Start 11/12/16 at 11:00 Potassium Chloride (Potassium Chloride Pwd/Soln) 10 meq DAILY PO Last administered on 11/23/16 09:32; Admin Dose 10 MEQ; Start 11/12/16 at 11:30 Thiamine HCl (Vitamin B1) 100 mg DAILY PO Last administered on 11/23/16 09:33; Admin Dose 100 MG; Start 11/13/16 at 09:00 Tolterodine Tartrate (Detrol La) 4 mg DAILY PO Last administered on 11/23/16 09 :32; Admin Dose 4 MG; Start 11/13/16 at 09:00 Zinc Sulfate (Zinc Sulfate) 220 mg DAILY PO Last administered on 11/23/16 09:33 ; Admin Dose 220 MG; Start 11/13/16 at 09:00 Lactulose (Enulose) 20 gm Q8 PO Last administered on 11/23/16 06:39; Admin Dose 20 GM; Start 11/12/16 at 14:00 Lorazepam (Ativan) 0.5 mg Q6H PRN PO ANXIETY Last administered on 11/23/16 10: 03; Admin Dose 0.5 MG; Start 11/12/16 at 12:30 Eye Lubricant (Artificial Tears Oph) 2 drop Q6H PRN BOTH EYES DRY EYES Last administered on 11/19/16 10:11; Admin Dose 2 DROP; Start 11/12/16 at 16:00 Acetaminophen (Tylenol Tab) 325 mg Q4H PRN PO PAIN AND OR ELEVATED TEMP; Start 11/12/16 at 18:30 Vitamin B Complex/ Vitamin C (Berocca) 1 cap DAILY PO Last administered on 09:33; Admin Dose 1 CAP; Start 11/14/16 at 09:00 Nystatin (Nystatin Powder) 1 applic DAILY TOP Last administered on 11/23/16 09: 37; Admin Dose 1 APPLIC; Start 11/15/16 at 09:00 Multi-Ingredient Ointment (Eucerin Cream) 1 applic BID TOP Last administered on 11/23/16 09:35; Admin Dose 1 APPLIC; Start 11/17/16 at 08:22 Montelukast Sodium (Singulair) 10 mg HS PO Last administered on 11/22/16 21:30 ; Admin Dose 10 MG; Start 11/19/16 at 21:00 Multivitamins Therapeutic (Theragran) 1 tab DAILY PO Last administered on 09:34; Admin Dose 1 TAB; Start 11/20/16 at 09:00 Mupirocin (Bactroban) 1 applic BID TOP Last administered on 11/23/16 09:36; Admin Dose 1 APPLIC; Start 11/19/16 at 11:30 Nitrofurantoin Macrocrystals (Macrobid) 100 mg BID PO Last administered on 09:32; Admin Dose 100 MG; Start 11/20/16 at 11:00 Morphine Sulfate (Ms Contin (Er)) 15 mg Q8 PO Last administered on 11/23/16 06: 39; Admin Dose 15 MG; Start 11/20/16 at 14:00 Metoprolol Tartrate (Lopressor) 12.5 mg BID PO ; Start 11/20/16 at 10:00 Levothyroxine Sodium (Synthroid) 88 mcg DAILY@06 PO ; Start 11/25/16 at 06:00; Status UNV Venlafaxine HCl (Effexor Xr) 75 mg DAILY ONCE PO ; Start 11/23/16 at 12:00; Stop 11/23/16 at 12:01; Status UNV TOSIN ENCARNACION Nov 23, 2016 11:56
[2016-11-23] MEDS ORDERED: VENLAFAXINE (XR) 75 MG CAP PO ONE (13:00)
[2016-11-23] MEDS: LEVOTHYROXINE 88 MCG TAB PO SCH (14:08)
[2016-11-23 17:44] VITALS: BP 127/79; PULSE 114; RESP 18
[2016-11-23 20:00] VITALS: BP 119/81; RESP 20
[2016-11-23] MEDS: MONTELUKAST 10 MG TAB PO SCH (20:57)
[2016-11-23] MEDS: traZODone 50 MG TAB PO SCH (20:57)
[2016-11-23 21:03] VITALS: BP 119/81; PULSE 102; RESP 18
[2016-11-24 02:00] VITALS: BP 124/88; RESP 16
[2016-11-24] MEDS: oxyCODONE 15 MG TAB PO PRN ×3 (03:12→18:34)
[2016-11-24] MEDS: LORAZEPAM 0.5 MG TAB PO PRN ×3 (03:12→18:34)
[2016-11-24 06:21] VITALS: BP 134/89; PULSE 93
[2016-11-24] MEDS: morphine (ER) 15 MG TAB PO SCH ×3 (06:22→21:58)
[2016-11-24] MEDS: PANTOPRAZOLE (EC) 40 MG TAB PO SCH (06:22)
[2016-11-24] MEDS: LEVOTHYROXINE 88 MCG TAB PO SCH (06:23)
[2016-11-24] MEDS: FUROSEMIDE 20 MG TAB PO SCH ×2 (06:23→18:09)
[2016-11-24] MEDS: LACTULOSE 30ML CUP PO SCH ×3 (06:23→22:00)
[2016-11-24 07:27] LABS: BASOPHILS % 0.3 % (0.0-2.0); EOSINOPHILS # 0.1 10^3/ul (0.0-0.5); EOSINOPHILS % 1.6 % (0.0-7.0); HEMATOCRIT 27.9 % (37.0-47.0); HEMOGLOBIN 9.1 g/dl (12.0-16.0); LYMPHOCYTES # 2.4 10^3/ul (0.8-2.9); LYMPHOCYTES % 41.4 % (15.0-51.0); MEAN CORPUSCULAR HEMOGLOBIN 30.7 pg (29.0-33.0); MEAN CORPUSCULAR HGB CONC 32.6 g/dl (32.0-37.0); MEAN CORPUSCULAR VOLUME 94.3 fl (82.0-101.0); MEAN PLATELET VOLUME 10.8 fl (7.4-10.4); MONOCYTE # 0.4 10^3/ul (0.3-0.9); MONOCYTES % 6.6 % (0.0-11.0); NEUTROPHILS % 49.9 % (39.0-77.0); PLATELET COUNT 202 10^3/UL (140-415); RED BLOOD COUNT 2.96 10^6/ul (4.20-5.40); RED CELL DISTRIBUTION WIDTH 21.5 % (11.5-14.5); WHITE BLOOD COUNT 5.8 10^3/ul (4.8-10.8)
[2016-11-24 07:47] LABS: CALCIUM 7.6 mg/dl (8.4-10.2); CREATININE 0.69 mg/dl (0.44-1.00); POTASSIUM 3.6 mmol/L (3.5-5.1)
[2016-11-24] MEDS: ZINC SULFATE 220 MG CAP PO SCH (09:41)
[2016-11-24] MEDS: TOLTERODINE (SR) 4 MG CAP PO SCH (09:42)
[2016-11-24] MEDS: MULTIVITAMINS THERAPEUTIC TAB PO SCH (09:42)
[2016-11-24] MEDS: POTASSIUM CHLORIDE 20 MEQ POWDER FOR ORAL SOLN PO SCH (09:42)
[2016-11-24] MEDS: VENLAFAXINE (XR) 75 MG CAP PO SCH (09:42)
[2016-11-24] MEDS: NITROFURANTOIN (SR) 100 MG CAP PO SCH ×2 (09:42→21:58)
[2016-11-24] MEDS: VITAMIN B COMPLEX/VIT C CAP PO SCH (09:43)
[2016-11-24] MEDS: THIAMINE 100 MG TAB PO SCH (09:43)
[2016-11-24] MEDS: GABAPENTIN 300 MG CAP PO SCH ×3 (09:43→23:06)
[2016-11-24] MEDS: SUCRALFATE 1 GM TAB PO SCH ×4 (09:43→21:00)
[2016-11-24] MEDS: DOCUSATE SODIUM 100 MG CAP PO SCH ×2 (09:44→21:58)
[2016-11-24] MEDS: FOLIC ACID 1 MG TAB PO SCH (09:44)
[2016-11-24] MEDS: ASCORBIC ACID 500 MG TAB PO SCH (09:44)
[2016-11-24] MEDS: METOPROLOL 25 MG TAB PO SCH (09:44)
[2016-11-24] MEDS: MUPIROCIN 2% 22 GM OINT TOP SCH ×2 (09:45→21:59)
[2016-11-24] MEDS: EUCERIN 113 GM CR TOP SCH ×2 (09:45→21:59)
[2016-11-24] MEDS: NYSTATIN 30 GM POWDER BTL TOP SCH (09:45)
[2016-11-24] MEDS: CLOBETASOL 0.05% 15 GM CR TOP SCH ×2 (09:46→22:04)
[2016-11-24] MEDS: HEPARIN 5,000 UNIT/0.5 ML VIAL SC SCH ×2 (10:18→22:12)
--- NOTE | 2016-11-24 11:50 | PN ---
Date/Time of Note Date/Time of Note DATE: 11/24/16 TIME: 11:47 Assessment/Plan VTE Prophylaxis VTE Prophylaxis Intervention: heparin Lines/Catheters IV Catheter Type (from Nrsg): Saline Lock Urinary Cath still in place: Yes Reason Cath still needed: urinary retention Assessment/Plan Chief Complaint/Hosp Course Assessment/Plan: 46-year-old female with a past medical history of chronic pain syndrome, hypothyroidism, gastroparesis 2/2 vagotomy, status post gastric bypass surgery in the past, pain and opioid dependence, depression, GERD, alcoholic liver disease, asthma presents with lower extremity redness and blistering, likely cellulitis, history of noncompliance as well. 1. Lower extremity erythema and swelling- patient has multiple admissions for this before, initial thought on admission was this was secondary to cellulitis. However, given low albumin, this may be from nutritional deficiency from inability to absorb nutrients from bypass surgery + decreased PO intake-->pt with severe protein calorie malnutrition, also B vitamin deficiency. -monitor for now -Continue Lasix PO BID -PT and OT consult follow-up their recommendations -pharmacology associate following -Continue B complex vitamin, thiamine, multivitamin, and now Megace daily 2. Headache: Head CT at the outside hospital was negative for acute processes -Pain management- f/u rec's 3. Hyponatremia-resolved Asymptomatic, monitor for now BMP every morning 4. History of alcoholic liver disease-although no cirrhosis identified on last CT scan from August 2016 -Continue diuresis 5. Opioid dependency Pain management consult on the case -For now continue MS Contin 3 times daily only for now, oxy IR as needed, follow -up final pain management consult recommendations 6. History of positive tumor markers with elevated CA 19-9, CA 125. and CEA : Patient has in the past been evaluated by oncology. CT chest/abdomen/pelvis was negative for malignancy. Colonoscopy also without finding of malignancy at that time. -Per oncology on last admission in August 2016, no need to do additional workup and no need to order additional tumor markers, monitor for now 7. History of Gastric bypass. Continue proton pump inhibitor. 8. Chronic depression -Continue antidepressant 9. Eye irritation: No signs of any discharge, although patient claims to have discharge from the right eye. -Continue gentamicin drops twice daily 3 days told 10. Hypothyroidism: Patient on levothyroxine. Her last thyroid panel is her back in June in August 2016. Less tachycardia today after adjustment made to the levothyroxine dose, as her repeat thyroid panel yesterday showed low free T4 levels and slightly high TSH levels. -Continue current levothyroxine at 88 mcg daily 10. 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 Problems: Subjective 24 Hr Interval Summary Free Text/Dictation No acute events overnight, patient refused metoprolol. Exam/Review of Systems Vital Signs Vitals Vital Signs Date Time Temp Pulse Resp B/P Pulse Ox O2 Delivery O2 Flow Rate FiO2 11/24/16 06:21 93 134/89 11/24/16 02:00 98.5 16 98 11/23/16 21:03 Room Air 11/20/16 15:33 21 Intake and Output 11/23/16 11/23/16 11/24/16 15:00 23:00 07:00 Intake Total 820 ml 480 ml Output Total 1150 ml Balance 820 ml -670 ml Exam Lying in bed, cachectic Pupils equal round reactive to light, extraocular muscles intact no mrg lungs clear bilaterally abd soft +edema and some redness bilateral lower extremities, no warmth Results Result Diagram: 11/24/16 0651 11/24/16 0651 Results 24 hrs Laboratory Tests Test 11/24/16 06:51 White Blood Count 5.8 Red Blood Count 2.96 L Hemoglobin 9.1 L Hematocrit 27.9 L Mean Corpuscular Volume 94.3 Mean Corpuscular Hemoglobin 30.7 Mean Corpuscular Hemoglobin Concent 32.6 Red Cell Distribution Width 21.5 H Platelet Count 202 Mean Platelet Volume 10.8 H Neutrophils % 49.9 Lymphocytes % 41.4 Monocytes % 6.6 Eosinophils % 1.6 Basophils % 0.3 Nucleated Red Blood Cells % 0.0 Neutrophils # (Manual) 2.9 Lymphocytes # 2.4 Monocytes # 0.4 Eosinophils # 0.1 Basophils # 0.0 Nucleated Red Blood Cells # 0.0 Sodium Level 138 Potassium Level 3.6 Chloride Level 102 Carbon Dioxide Level 25 Anion Gap 15 Blood Urea Nitrogen 6 L Creatinine 0.69 Glucose Level 111 Calcium Level 7.6 L Medications Medications Current Medications Ondansetron HCl (Zofran Inj) 4 mg Q6H PRN IV NAUSEA AND/OR VOMITING; Start at 21:30 Heparin Sodium (Porcine) (Heparin (5000 Units/0.5 ml)) 5,000 unit BID SC Last administered on 11/24/16 10:18; Admin Dose 5,000 UNIT; Start 11/11/16 at 09:00 Docusate Sodium (Colace) 100 mg BID PO Last administered on 11/24/16 09:44; Admin Dose 100 MG; Start 11/11/16 at 09:00 Folic Acid (Folic Acid) 1 mg DAILY PO Last administered on 11/24/16 09:44; Admin Dose 1 MG; Start 11/11/16 at 09:00 Pantoprazole (Protonix Tab) 40 mg DAILY@06 PO Last administered on 11/24/16 06: 22; Admin Dose 40 MG; Start 11/11/16 at 06:00 Gabapentin (Neurontin) 300 mg BID PO Last administered on 11/24/16 09:43; Admin Dose 300 MG; Start 11/11/16 at 09:00 Sucralfate (Carafate) 1 gm QID PO Last administered on 11/24/16 09:43; Admin Dose 1 GM; Start 11/11/16 at 09:00 Trazodone HCl (Desyrel) 50 mg HS PO Last administered on 11/20/16 23:56; Admin Dose 50 MG; Start 11/11/16 at 21:00 Oxycodone HCl (Roxicodone) 15 mg Q4H PRN PO PAIN LEVEL 6-10 Last administered on 11/24/16 10:07; Admin Dose 15 MG; Start 11/11/16 at 18:00 Ascorbic Acid (Vitamin C) 500 mg DAILY PO Last administered on 11/24/16 09:44; Admin Dose 500 MG; Start 11/13/16 at 09:00 Clobetasol Propionate (Temovate 0.05% Cr) 1 applic BID TOP Last administered on 11/24/16 09:46; Admin Dose 1 APPLIC; Start 11/12/16 at 21:00 Diphenhydramine HCl (Benadryl) 25 mg Q6H PRN PO ITCHING; Start 11/12/16 at 11: 00 Hydroxyzine HCl (Atarax) 50 mg Q6H PRN PO ITCHING; Start 11/12/16 at 11:00 Potassium Chloride (Potassium Chloride Pwd/Soln) 10 meq DAILY PO Last administered on 11/24/16 09:42; Admin Dose 10 MEQ; Start 11/12/16 at 11:30 Thiamine HCl (Vitamin B1) 100 mg DAILY PO Last administered on 11/24/16 09:43; Admin Dose 100 MG; Start 11/13/16 at 09:00 Tolterodine Tartrate (Detrol La) 4 mg DAILY PO Last administered on 11/24/16 09 :42; Admin Dose 4 MG; Start 11/13/16 at 09:00 Zinc Sulfate (Zinc Sulfate) 220 mg DAILY PO Last administered on 11/24/16 09:41 ; Admin Dose 220 MG; Start 11/13/16 at 09:00 Lactulose (Enulose) 20 gm Q8 PO Last administered on 11/24/16 06:23; Admin Dose 20 GM; Start 11/12/16 at 14:00 Lorazepam (Ativan) 0.5 mg Q6H PRN PO ANXIETY Last administered on 11/24/16 10: 07; Admin Dose 0.5 MG; Start 11/12/16 at 12:30 Eye Lubricant (Artificial Tears Oph) 2 drop Q6H PRN BOTH EYES DRY EYES Last administered on 11/19/16 10:11; Admin Dose 2 DROP; Start 11/12/16 at 16:00 Acetaminophen (Tylenol Tab) 325 mg Q4H PRN PO PAIN AND OR ELEVATED TEMP; Start 11/12/16 at 18:30 Vitamin B Complex/ Vitamin C (Berocca) 1 cap DAILY PO Last administered on 09:43; Admin Dose 1 CAP; Start 11/14/16 at 09:00 Nystatin (Nystatin Powder) 1 applic DAILY TOP Last administered on 11/24/16 09: 45; Admin Dose 1 APPLIC; Start 11/15/16 at 09:00 Multi-Ingredient Ointment (Eucerin Cream) 1 applic BID TOP Last administered on 11/24/16 09:45; Admin Dose 1 APPLIC; Start 11/17/16 at 08:22 Montelukast Sodium (Singulair) 10 mg HS PO Last administered on 11/23/16 20:57 ; Admin Dose 10 MG; Start 11/19/16 at 21:00 Multivitamins Therapeutic (Theragran) 1 tab DAILY PO Last administered on 09:42; Admin Dose 1 TAB; Start 11/20/16 at 09:00 Mupirocin (Bactroban) 1 applic BID TOP Last administered on 11/24/16 09:45; Admin Dose 1 APPLIC; Start 11/19/16 at 11:30 Nitrofurantoin Macrocrystals (Macrobid) 100 mg BID PO Last administered on 09:42; Admin Dose 100 MG; Start 11/20/16 at 11:00 Morphine Sulfate (Ms Contin (Er)) 15 mg Q8 PO Last administered on 11/24/16 06: 22; Admin Dose 15 MG; Start 11/20/16 at 14:00 Metoprolol Tartrate (Lopressor) 12.5 mg BID PO Last administered on 11/24/16 09 :44; Admin Dose 12.5 MG; Start 11/20/16 at 10:00 Levothyroxine Sodium (Synthroid) 88 mcg DAILY@06 PO Last administered on 06:23; Admin Dose 88 MCG; Start 11/23/16 at 14:00 Venlafaxine HCl (Effexor Xr) 225 mg DAILY PO Last administered on 11/24/16 09: 42; Admin Dose 225 MG; Start 11/24/16 at 09:00 TOSIN ENCARNACION Nov 24, 2016 11:50
[2016-11-24 12:24] VITALS: BP 142/101; RESP 16
[2016-11-24 20:00] VITALS: BP 124/87; RESP 18
[2016-11-24] MEDS: MONTELUKAST 10 MG TAB PO SCH (21:58)
[2016-11-24] MEDS: traZODone 50 MG TAB PO SCH ×2 (22:00→23:06)
[2016-11-25 02:00] VITALS: BP 106/76; RESP 16
[2016-11-25 05:30] VITALS: BP 105/73; PULSE 109; RESP 18
[2016-11-25] MEDS: morphine (ER) 15 MG TAB PO SCH ×3 (05:30→22:08)
[2016-11-25] MEDS: LEVOTHYROXINE 88 MCG TAB PO SCH (05:30)
[2016-11-25] MEDS: PANTOPRAZOLE (EC) 40 MG TAB PO SCH (05:30)
[2016-11-25] MEDS: LACTULOSE 30ML CUP PO SCH ×3 (05:30→22:07)
[2016-11-25] MEDS: FUROSEMIDE 20 MG TAB PO SCH ×2 (05:31→17:33)
[2016-11-25 07:52] LABS: CALCIUM 7.4 mg/dl (8.4-10.2); CREATININE 0.57 mg/dl (0.44-1.00); POTASSIUM 3.3 mmol/L (3.5-5.1)
[2016-11-25] MEDS: TOLTERODINE (SR) 4 MG CAP PO SCH (08:56)
[2016-11-25] MEDS: VENLAFAXINE (XR) 75 MG CAP PO SCH (08:56)
[2016-11-25] MEDS: SUCRALFATE 1 GM TAB PO SCH ×4 (08:56→20:37)
[2016-11-25] MEDS: THIAMINE 100 MG TAB PO SCH (08:56)
[2016-11-25] MEDS: POTASSIUM CHLORIDE 20 MEQ POWDER FOR ORAL SOLN PO SCH (08:56)
[2016-11-25] MEDS: EUCERIN 113 GM CR TOP SCH ×2 (08:57→20:38)
[2016-11-25] MEDS: GABAPENTIN 300 MG CAP PO SCH ×2 (08:57→20:37)
[2016-11-25] MEDS: CLOBETASOL 0.05% 15 GM CR TOP SCH ×2 (08:57→20:40)
[2016-11-25] MEDS: MUPIROCIN 2% 22 GM OINT TOP SCH ×2 (08:57→20:38)
[2016-11-25] MEDS: FOLIC ACID 1 MG TAB PO SCH (08:57)
[2016-11-25] MEDS: VITAMIN B COMPLEX/VIT C CAP PO SCH (08:57)
[2016-11-25] MEDS: ZINC SULFATE 220 MG CAP PO SCH (08:57)
[2016-11-25] MEDS: ASCORBIC ACID 500 MG TAB PO SCH (08:57)
[2016-11-25] MEDS: DOCUSATE SODIUM 100 MG CAP PO SCH ×2 (08:57→20:37)
[2016-11-25] MEDS: NYSTATIN 30 GM POWDER BTL TOP SCH (08:57)
[2016-11-25] MEDS: NITROFURANTOIN (SR) 100 MG CAP PO SCH ×2 (08:57→20:37)
[2016-11-25] MEDS: MULTIVITAMINS THERAPEUTIC TAB PO SCH (08:57)
[2016-11-25] MEDS: HEPARIN 5,000 UNIT/0.5 ML VIAL SC SCH ×2 (09:07→22:10)
[2016-11-25] MEDS: LORAZEPAM 0.5 MG TAB PO PRN ×2 (09:11→15:33)
[2016-11-25] MEDS: oxyCODONE 15 MG TAB PO PRN ×4 (09:11→23:29)
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
[2016-11-25] MEDS ORDERED: POTASSIUM CHLORIDE (SR) 20 MEQ TAB PO STA (11:26)
--- NOTE | 2016-11-25 11:30 | PN ---
Date/Time of Note Date/Time of Note DATE: 11/25/16 TIME: 11:28 Assessment/Plan VTE Prophylaxis VTE Prophylaxis Intervention: heparin Lines/Catheters IV Catheter Type (from Nrsg): Saline Lock Urinary Cath still in place: Yes Reason Cath still needed: urinary retention Assessment/Plan Chief Complaint/Hosp Course Assessment/Plan: 46-year-old female with a past medical history of chronic pain syndrome, hypothyroidism, gastroparesis 2/2 vagotomy, status post gastric bypass surgery in the past, pain and opioid dependence, depression, GERD, alcoholic liver disease, asthma presents with lower extremity redness and blistering, likely cellulitis, history of noncompliance as well. 1. Lower extremity erythema and swelling- patient has multiple admissions for this before, initial thought on admission was this was secondary to cellulitis. However, given low albumin, this may be from nutritional deficiency from inability to absorb nutrients from bypass surgery + decreased PO intake-->pt with severe protein calorie malnutrition, also B vitamin deficiency. -monitor for now -Continue Lasix PO BID -PT and OT consult follow-up their recommendations -hot box spotter following -Continue B complex vitamin, thiamine, multivitamin, and now Megace daily 2. Headache: Head CT at the outside hospital was negative for acute processes -Pain management- f/u rec's 3. Hyponatremia-resolved Asymptomatic, monitor for now BMP every morning 4. History of alcoholic liver disease-although no cirrhosis identified on last CT scan from August 2016 -Continue diuresis 5. Opioid dependency Pain management consult on the case -For now continue MS Contin 3 times daily only for now, oxy IR as needed, follow -up final pain management consult recommendations 6. History of positive tumor markers with elevated CA 19-9, CA 125. and CEA : Patient has in the past been evaluated by oncology. CT chest/abdomen/pelvis was negative for malignancy. Colonoscopy also without finding of malignancy at that time. -Per oncology on last admission in August 2016, no need to do additional workup and no need to order additional tumor markers, monitor for now 7. History of Gastric bypass. Continue proton pump inhibitor. 8. Chronic depression -Continue antidepressant 9. Eye irritation: No signs of any discharge, although patient claims to have discharge from the right eye. -Continue gentamicin drops twice daily 3 days told 10. Hypothyroidism: Patient on levothyroxine. Her last thyroid panel is her back in June in August 2016. Her repeat thyroid panel 2 days ago showed low free T4 levels and slightly high TSH levels. -We attempted to hold levothyroxine med 2 days ago and restarted yesterday, however patient has been having tachycardia the last 24 hours -We will go ahead and hold levothyroxine for 2 more days, and resume on November 28, 2016 at new dose (see orders) 10. 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 Problems: Subjective 24 Hr Interval Summary Free Text/Dictation Seen by pain management team this morning, no acute events overnight, tolerance of diet appears to be low to adequate at this point. Exam/Review of Systems Vital Signs Vitals Vital Signs Date Time Temp Pulse Resp B/P Pulse Ox O2 Delivery O2 Flow Rate FiO2 11/25/16 05:30 109 18 105/73 11/25/16 02:00 98.7 97 11/23/16 21:03 Room Air Intake and Output 11/24/16 11/24/16 11/25/16 15:00 23:00 07:00 Intake Total 360 ml 720 ml Output Total 600 ml 1200 ml Balance -240 ml -480 ml Exam Lying in bed, cachectic Pupils equal round reactive to light, extraocular muscles intact no mrg lungs clear bilaterally abd soft +edema and some redness bilateral lower extremities, no warmth Results Result Diagram: 11/24/16 0651 11/25/16 0703 Results 24 hrs Laboratory Tests Test 11/25/16 07:03 Sodium Level 135 Potassium Level 3.3 L Chloride Level 100 Carbon Dioxide Level 27 Anion Gap 11 Blood Urea Nitrogen 5 L Creatinine 0.57 Glucose Level 79 Calcium Level 7.4 L Medications Medications Current Medications Ondansetron HCl (Zofran Inj) 4 mg Q6H PRN IV NAUSEA AND/OR VOMITING; Start at 21:30 Heparin Sodium (Porcine) (Heparin (5000 Units/0.5 ml)) 5,000 unit BID SC Last administered on 11/25/16 09:07; Admin Dose 5,000 UNIT; Start 11/11/16 at 09:00 Docusate Sodium (Colace) 100 mg BID PO Last administered on 11/25/16 08:57; Admin Dose 100 MG; Start 11/11/16 at 09:00 Folic Acid (Folic Acid) 1 mg DAILY PO Last administered on 11/25/16 08:57; Admin Dose 1 MG; Start 11/11/16 at 09:00 Pantoprazole (Protonix Tab) 40 mg DAILY@06 PO Last administered on 11/25/16 05: 30; Admin Dose 40 MG; Start 11/11/16 at 06:00 Gabapentin (Neurontin) 300 mg BID PO Last administered on 11/25/16 08:57; Admin Dose 300 MG; Start 11/11/16 at 09:00 Sucralfate (Carafate) 1 gm QID PO Last administered on 11/25/16 08:56; Admin Dose 1 GM; Start 11/11/16 at 09:00 Trazodone HCl (Desyrel) 50 mg HS PO Last administered on 11/24/16 23:06; Admin Dose 50 MG; Start 11/11/16 at 21:00 Oxycodone HCl (Roxicodone) 15 mg Q4H PRN PO PAIN LEVEL 6-10 Last administered on 11/25/16 09:11; Admin Dose 15 MG; Start 11/11/16 at 18:00 Ascorbic Acid (Vitamin C) 500 mg DAILY PO Last administered on 11/25/16 08:57; Admin Dose 500 MG; Start 11/13/16 at 09:00 Clobetasol Propionate (Temovate 0.05% Cr) 1 applic BID TOP Last administered on 11/25/16 08:57; Admin Dose 1 APPLIC; Start 11/12/16 at 21:00 Diphenhydramine HCl (Benadryl) 25 mg Q6H PRN PO ITCHING; Start 11/12/16 at 11: 00 Hydroxyzine HCl (Atarax) 50 mg Q6H PRN PO ITCHING; Start 11/12/16 at 11:00 Potassium Chloride (Potassium Chloride Pwd/Soln) 10 meq DAILY PO Last administered on 11/25/16 08:56; Admin Dose 10 MEQ; Start 11/12/16 at 11:30 Thiamine HCl (Vitamin B1) 100 mg DAILY PO Last administered on 11/25/16 08:56; Admin Dose 100 MG; Start 11/13/16 at 09:00 Tolterodine Tartrate (Detrol La) 4 mg DAILY PO Last administered on 11/25/16 08 :56; Admin Dose 4 MG; Start 11/13/16 at 09:00 Zinc Sulfate (Zinc Sulfate) 220 mg DAILY PO Last administered on 11/25/16 08:57 ; Admin Dose 220 MG; Start 11/13/16 at 09:00 Lactulose (Enulose) 20 gm Q8 PO Last administered on 11/25/16 05:30; Admin Dose 20 GM; Start 11/12/16 at 14:00 Lorazepam (Ativan) 0.5 mg Q6H PRN PO ANXIETY Last administered on 11/25/16 09: 11; Admin Dose 0.5 MG; Start 11/12/16 at 12:30 Eye Lubricant (Artificial Tears Oph) 2 drop Q6H PRN BOTH EYES DRY EYES Last administered on 11/19/16 10:11; Admin Dose 2 DROP; Start 11/12/16 at 16:00 Acetaminophen (Tylenol Tab) 325 mg Q4H PRN PO PAIN AND OR ELEVATED TEMP; Start 11/12/16 at 18:30 Vitamin B Complex/ Vitamin C (Berocca) 1 cap DAILY PO Last administered on 08:57; Admin Dose 1 CAP; Start 11/14/16 at 09:00 Nystatin (Nystatin Powder) 1 applic DAILY TOP Last administered on 11/25/16 08: 57; Admin Dose 1 APPLIC; Start 11/15/16 at 09:00 Multi-Ingredient Ointment (Eucerin Cream) 1 applic BID TOP Last administered on 11/25/16 08:57; Admin Dose 1 APPLIC; Start 11/17/16 at 08:22 Montelukast Sodium (Singulair) 10 mg HS PO Last administered on 11/24/16 21:58 ; Admin Dose 10 MG; Start 11/19/16 at 21:00 Multivitamins Therapeutic (Theragran) 1 tab DAILY PO Last administered on 08:57; Admin Dose 1 TAB; Start 11/20/16 at 09:00 Mupirocin (Bactroban) 1 applic BID TOP Last administered on 11/25/16 08:57; Admin Dose 1 APPLIC; Start 11/19/16 at 11:30 Nitrofurantoin Macrocrystals (Macrobid) 100 mg BID PO Last administered on 08:57; Admin Dose 100 MG; Start 11/20/16 at 11:00 Morphine Sulfate (Ms Contin (Er)) 15 mg Q8 PO Last administered on 11/25/16 05: 30; Admin Dose 15 MG; Start 11/20/16 at 14:00 Metoprolol Tartrate (Lopressor) 12.5 mg BID PO Last administered on 11/24/16 09 :44; Admin Dose 12.5 MG; Start 11/20/16 at 10:00; Status Future Hold Levothyroxine Sodium (Synthroid) 88 mcg DAILY@06 PO Last administered on 05:30; Admin Dose 88 MCG; Start 11/23/16 at 14:00 Venlafaxine HCl (Effexor Xr) 225 mg DAILY PO Last administered on 11/25/16 08: 56; Admin Dose 225 MG; Start 11/24/16 at 09:00 TOSIN ENCARNACION Nov 25, 2016 11:30
[2016-11-25 13:00] VITALS: BP 103/70; RESP 16
[2016-11-25 19:30] VITALS: BP 105/73; RESP 20
[2016-11-25] MEDS: MONTELUKAST 10 MG TAB PO SCH (20:37)
[2016-11-25] MEDS: traZODone 50 MG TAB PO SCH (21:00)
[2016-11-26 01:33] VITALS: BP 105/73; RESP 18
[2016-11-26] MEDS: oxyCODONE 15 MG TAB PO PRN ×6 (03:26→23:46)
[2016-11-26] MEDS: PANTOPRAZOLE (EC) 40 MG TAB PO SCH (05:28)
[2016-11-26] MEDS: LACTULOSE 30ML CUP PO SCH ×3 (05:28→22:04)
[2016-11-26] MEDS: FUROSEMIDE 20 MG TAB PO SCH (05:28)
[2016-11-26] MEDS: morphine (ER) 15 MG TAB PO SCH ×3 (05:31→21:09)
[2016-11-26 07:33] VITALS: BP 107/70; RESP 18
[2016-11-26] MEDS: ZINC SULFATE 220 MG CAP PO SCH (08:36)
[2016-11-26] MEDS: TOLTERODINE (SR) 4 MG CAP PO SCH (08:36)
[2016-11-26] MEDS: ASCORBIC ACID 500 MG TAB PO SCH (08:36)
[2016-11-26] MEDS: THIAMINE 100 MG TAB PO SCH (08:36)
[2016-11-26] MEDS: GABAPENTIN 300 MG CAP PO SCH ×2 (08:36→21:08)
[2016-11-26] MEDS: FOLIC ACID 1 MG TAB PO SCH (08:36)
[2016-11-26] MEDS: LORAZEPAM 0.5 MG TAB PO PRN ×3 (08:36→22:04)
[2016-11-26] MEDS: MULTIVITAMINS THERAPEUTIC TAB PO SCH (08:36)
[2016-11-26] MEDS: SUCRALFATE 1 GM TAB PO SCH ×4 (08:36→21:08)
[2016-11-26] MEDS: NITROFURANTOIN (SR) 100 MG CAP PO SCH ×2 (08:36→21:08)
[2016-11-26] MEDS: DOCUSATE SODIUM 100 MG CAP PO SCH ×2 (08:36→21:00)
[2016-11-26] MEDS: POTASSIUM CHLORIDE 20 MEQ POWDER FOR ORAL SOLN PO SCH (08:36)
[2016-11-26] MEDS: VENLAFAXINE (XR) 75 MG CAP PO SCH (08:36)
[2016-11-26] MEDS: VITAMIN B COMPLEX/VIT C CAP PO SCH (08:36)
[2016-11-26] MEDS: EUCERIN 113 GM CR TOP SCH ×2 (08:37→21:10)
[2016-11-26] MEDS: MUPIROCIN 2% 22 GM OINT TOP SCH ×2 (08:37→21:11)
[2016-11-26] MEDS: CLOBETASOL 0.05% 15 GM CR TOP SCH ×2 (08:37→21:09)
[2016-11-26] MEDS: NYSTATIN 30 GM POWDER BTL TOP SCH (08:37)
[2016-11-26] MEDS: HEPARIN 5,000 UNIT/0.5 ML VIAL SC SCH ×2 (09:06→21:17)
[2016-11-26 10:41] LABS: BASOPHILS % 0.2 % (0.0-2.0); EOSINOPHILS % 0.3 % (0.0-7.0); HEMATOCRIT 24.5 % (37.0-47.0); HEMOGLOBIN 8.2 g/dl (12.0-16.0); LYMPHOCYTES # 1.8 10^3/ul (0.8-2.9); LYMPHOCYTES % 18.6 % (15.0-51.0); MEAN CORPUSCULAR HEMOGLOBIN 31.2 pg (29.0-33.0); MEAN CORPUSCULAR HGB CONC 33.5 g/dl (32.0-37.0); MEAN CORPUSCULAR VOLUME 93.2 fl (82.0-101.0); MEAN PLATELET VOLUME 11.5 fl (7.4-10.4); MONOCYTE # 0.5 10^3/ul (0.3-0.9); MONOCYTES % 5.3 % (0.0-11.0); NEUTROPHILS % 75.2 % (39.0-77.0); PLATELET COUNT 215 10^3/UL (140-415); RED BLOOD COUNT 2.63 10^6/ul (4.20-5.40); RED CELL DISTRIBUTION WIDTH 21.4 % (11.5-14.5); WHITE BLOOD COUNT 9.7 10^3/ul (4.8-10.8)
[2016-11-26 11:04] LABS: CALCIUM 7.2 mg/dl (8.4-10.2); CREATININE 0.59 mg/dl (0.44-1.00)
[2016-11-26 11:06] LABS: POTASSIUM 2.9 mmol/L (3.5-5.1)
[2016-11-26] MEDS ORDERED: POTASSIUM CHLORIDE (SR) 20 MEQ TAB PO STA (11:35)
[2016-11-26] MEDS ORDERED: POTASSIUM CHLORIDE 20 MEQ POWDER FOR ORAL SOLN PO ONE (12:00)
--- NOTE | 2016-11-26 15:48 | PN ---
Date/Time of Note Date/Time of Note DATE: 11/26/16 TIME: 15:42 Assessment/Plan VTE Prophylaxis VTE Prophylaxis Intervention: SCD's Lines/Catheters IV Catheter Type (from Nrs): Saline Lock Central line still needed: Yes Urinary Cath still in place: No Reason Cath still needed: other (indicate) (pt refusal) Assessment/Plan Assessment/Plan 46 yo F with pmhx gastric bypass surgery, gastroparesis 2/2 vagotomy admitted for hand and foot swelling and peeling. Pt with multiple admissions for similar with extensive work up for malignancy which was negative. Given low albumin, suspect etio is nutritional deficiency from inability to absorb nutrients from bypass surgery + decreased PO intake-->pt with severe protein calorie malnutrition, also likely B vitamin deficiency Pt's weight today 39 kg represents 18 kg loss from admission. Pt's fluid status only has her down 9L. Unclear where other 9kg weight loss has come from. RD following PLAN cont B complex vitamin pain management cont home meds RD notes reviewed. Unclear why calorie count never obtained. Will check now. decrease lasix from BID to daily as suspect pt back to dry weight. celiac screen TFTs noted. hold synthroid for now as pt with iatrogenic hyperthyroid DVT prophx still refusing howard removal CM working on dispo Subjective 24 Hr Interval Summary Free Text/Dictation States she's been eating but RN reports suggest otherwise Exam/Review of Systems Vital Signs Vitals Vital Signs Date Time Temp Pulse Resp B/P Pulse Ox O2 Delivery O2 Flow Rate FiO2 11/26/16 07:33 98.6 112 18 107/70 98 11/23/16 21:03 Room Air Intake and Output 11/25/16 11/25/16 11/26/16 15:00 23:00 07:00 Intake Total 1000 ml 400 ml Output Total 900 ml Balance 100 ml 400 ml Exam inc cachexia from when I saw pt last week no mrg abd soft palmar peeling still present no edema Results Result Diagram: 11/26/16 0935 11/26/16 0935 Results 24 hrs Laboratory Tests Test 11/26/16 09:35 White Blood Count 9.7 # Red Blood Count 2.63 L Hemoglobin 8.2 L Hematocrit 24.5 L Mean Corpuscular Volume 93.2 Mean Corpuscular Hemoglobin 31.2 Mean Corpuscular Hemoglobin Concent 33.5 Red Cell Distribution Width 21.4 H Platelet Count 215 Mean Platelet Volume 11.5 H Neutrophils % 75.2 Lymphocytes % 18.6 Monocytes % 5.3 Eosinophils % 0.3 Basophils % 0.2 Nucleated Red Blood Cells % 0.0 Neutrophils # (Manual) 7.3 Lymphocytes # 1.8 Monocytes # 0.5 Eosinophils # 0.0 Basophils # 0.0 Nucleated Red Blood Cells # 0.0 Sodium Level 133 L Potassium Level 2.9 *L Chloride Level 101 Carbon Dioxide Level 22 Anion Gap 13 Blood Urea Nitrogen 5 L Creatinine 0.59 Glucose Level 192 # Calcium Level 7.2 L Medications Medications Current Medications Ondansetron HCl (Zofran Inj) 4 mg Q6H PRN IV NAUSEA AND/OR VOMITING; Start at 21:30 Heparin Sodium (Porcine) (Heparin (5000 Units/0.5 ml)) 5,000 unit BID SC Last administered on 11/26/16 09:06; Admin Dose 5,000 UNIT; Start 11/11/16 at 09:00 Docusate Sodium (Colace) 100 mg BID PO Last administered on 11/26/16 08:36; Admin Dose 100 MG; Start 11/11/16 at 09:00 Folic Acid (Folic Acid) 1 mg DAILY PO Last administered on 11/26/16 08:36; Admin Dose 1 MG; Start 11/11/16 at 09:00 Pantoprazole (Protonix Tab) 40 mg DAILY@06 PO Last administered on 11/26/16 05: 28; Admin Dose 40 MG; Start 11/11/16 at 06:00 Gabapentin (Neurontin) 300 mg BID PO Last administered on 11/26/16 08:36; Admin Dose 300 MG; Start 11/11/16 at 09:00 Sucralfate (Carafate) 1 gm QID PO Last administered on 11/25/16 20:37; Admin Dose 1 GM; Start 11/11/16 at 09:00 Trazodone HCl (Desyrel) 50 mg HS PO Last administered on 11/24/16 23:06; Admin Dose 50 MG; Start 11/11/16 at 21:00 Oxycodone HCl (Roxicodone) 15 mg Q4H PRN PO PAIN LEVEL 6-10 Last administered on 11/26/16 15:15; Admin Dose 15 MG; Start 11/11/16 at 18:00 Ascorbic Acid (Vitamin C) 500 mg DAILY PO Last administered on 11/26/16 08:36; Admin Dose 500 MG; Start 11/13/16 at 09:00 Clobetasol Propionate (Temovate 0.05% Cr) 1 applic BID TOP Last administered on 11/26/16 08:37; Admin Dose 1 APPLIC; Start 11/12/16 at 21:00 Diphenhydramine HCl (Benadryl) 25 mg Q6H PRN PO ITCHING; Start 11/12/16 at 11: 00 Hydroxyzine HCl (Atarax) 50 mg Q6H PRN PO ITCHING; Start 11/12/16 at 11:00 Potassium Chloride (Potassium Chloride Pwd/Soln) 10 meq DAILY PO Last administered on 11/26/16 08:36; Admin Dose 10 MEQ; Start 11/12/16 at 11:30 Thiamine HCl (Vitamin B1) 100 mg DAILY PO Last administered on 11/26/16 08:36; Admin Dose 100 MG; Start 11/13/16 at 09:00 Zinc Sulfate (Zinc Sulfate) 220 mg DAILY PO Last administered on 11/26/16 08:36 ; Admin Dose 220 MG; Start 11/13/16 at 09:00 Lactulose (Enulose) 20 gm Q8 PO Last administered on 11/26/16 13:14; Admin Dose 20 GM; Start 11/12/16 at 14:00 Lorazepam (Ativan) 0.5 mg Q6H PRN PO ANXIETY Last administered on 11/26/16 15: 15; Admin Dose 0.5 MG; Start 11/12/16 at 12:30 Eye Lubricant (Artificial Tears Oph) 2 drop Q6H PRN BOTH EYES DRY EYES Last administered on 11/19/16 10:11; Admin Dose 2 DROP; Start 11/12/16 at 16:00 Acetaminophen (Tylenol Tab) 325 mg Q4H PRN PO PAIN AND OR ELEVATED TEMP; Start 11/12/16 at 18:30 Vitamin B Complex/ Vitamin C (Berocca) 1 cap DAILY PO Last administered on 08:36; Admin Dose 1 CAP; Start 11/14/16 at 09:00 Nystatin (Nystatin Powder) 1 applic DAILY TOP Last administered on 11/26/16 08: 37; Admin Dose 1 APPLIC; Start 11/15/16 at 09:00 Multi-Ingredient Ointment (Eucerin Cream) 1 applic BID TOP Last administered on 11/26/16 08:37; Admin Dose 1 APPLIC; Start 11/17/16 at 08:22 Montelukast Sodium (Singulair) 10 mg HS PO Last administered on 11/25/16 20:37 ; Admin Dose 10 MG; Start 11/19/16 at 21:00 Multivitamins Therapeutic (Theragran) 1 tab DAILY PO Last administered on 08:36; Admin Dose 1 TAB; Start 11/20/16 at 09:00 Mupirocin (Bactroban) 1 applic BID TOP Last administered on 11/26/16 08:37; Admin Dose 1 APPLIC; Start 11/19/16 at 11:30 Nitrofurantoin Macrocrystals (Macrobid) 100 mg BID PO Last administered on 08:36; Admin Dose 100 MG; Start 11/20/16 at 11:00 Morphine Sulfate (Ms Contin (Er)) 15 mg Q8 PO Last administered on 11/26/16 13: 14; Admin Dose 15 MG; Start 11/20/16 at 14:00 Metoprolol Tartrate (Lopressor) 12.5 mg BID PO Last administered on 11/24/16 09 :44; Admin Dose 12.5 MG; Start 11/20/16 at 10:00; Status Future Hold Venlafaxine HCl (Effexor Xr) 225 mg DAILY PO Last administered on 11/26/16 08: 36; Admin Dose 225 MG; Start 11/24/16 at 09:00 Tolterodine Tartrate (Detrol La) 4 mg HS PO ; Start 11/27/16 at 21:00 Furosemide (Lasix) 20 mg DAILY PO ; Start 11/27/16 at 09:00 OLLIE YUEN MD Nov 26, 2016 15:48
[2016-11-26 19:37] LABS: ALBUMIN 2.2 g/dl (3.3-4.9); MAGNESIUM 1.6 mg/dl (1.7-2.5)
[2016-11-26 19:44] LABS: PREALBUMIN 3.9 mg/dl (17.6-36.0)
[2016-11-26] MEDS: traZODone 50 MG TAB PO SCH (21:00)
[2016-11-26] MEDS: MONTELUKAST 10 MG TAB PO SCH (21:09)
[2016-11-27 02:00] VITALS: BP 95/62; RESP 20
[2016-11-27] MEDS: oxyCODONE 15 MG TAB PO PRN ×4 (04:08→19:47)
[2016-11-27] MEDS: LORAZEPAM 0.5 MG TAB PO PRN ×3 (04:08→17:05)
[2016-11-27] MEDS: PANTOPRAZOLE (EC) 40 MG TAB PO SCH (06:38)
[2016-11-27] MEDS: morphine (ER) 15 MG TAB PO SCH ×3 (06:38→21:43)
[2016-11-27] MEDS: LACTULOSE 30ML CUP PO SCH ×3 (06:38→21:40)
[2016-11-27 07:18] VITALS: BP 96/68; RESP 18
[2016-11-27 08:35] LABS: CALCIUM 7.6 mg/dl (8.4-10.2); CREATININE 0.51 mg/dl (0.44-1.00); POTASSIUM 4.1 mmol/L (3.5-5.1)
[2016-11-27] MEDS: VITAMIN B COMPLEX/VIT C CAP PO SCH (09:02)
[2016-11-27] MEDS: ASCORBIC ACID 500 MG TAB PO SCH (09:02)
[2016-11-27] MEDS: THIAMINE 100 MG TAB PO SCH (09:02)
[2016-11-27] MEDS: GABAPENTIN 300 MG CAP PO SCH ×2 (09:03→21:42)
[2016-11-27] MEDS: DOCUSATE SODIUM 100 MG CAP PO SCH ×2 (09:03→21:00)
[2016-11-27] MEDS: NITROFURANTOIN (SR) 100 MG CAP PO SCH ×2 (09:03→21:41)
[2016-11-27] MEDS: SUCRALFATE 1 GM TAB PO SCH ×4 (09:03→21:41)
[2016-11-27] MEDS: ZINC SULFATE 220 MG CAP PO SCH (09:03)
[2016-11-27] MEDS: VENLAFAXINE (XR) 75 MG CAP PO SCH (09:04)
[2016-11-27] MEDS: FUROSEMIDE 20 MG TAB PO SCH (09:04)
[2016-11-27] MEDS: MULTIVITAMINS THERAPEUTIC TAB PO SCH (09:05)
[2016-11-27] MEDS: FOLIC ACID 1 MG TAB PO SCH (09:05)
[2016-11-27] MEDS: EUCERIN 113 GM CR TOP SCH ×2 (09:06→21:42)
[2016-11-27] MEDS: MUPIROCIN 2% 22 GM OINT TOP SCH ×2 (09:06→21:43)
[2016-11-27] MEDS: CLOBETASOL 0.05% 15 GM CR TOP SCH ×2 (09:07→21:42)
[2016-11-27] MEDS: NYSTATIN 30 GM POWDER BTL TOP SCH (09:07)
[2016-11-27] MEDS: HEPARIN 5,000 UNIT/0.5 ML VIAL SC SCH ×2 (09:36→21:00)
[2016-11-27] MEDS: POTASSIUM CHLORIDE 20 MEQ POWDER FOR ORAL SOLN PO SCH (09:36)
[2016-11-27 14:43] VITALS: BP 104/83; RESP 18
--- NOTE | 2016-11-27 18:55 | PN ---
Date/Time of Note Date/Time of Note DATE: 11/27/16 TIME: 18:53 Assessment/Plan VTE Prophylaxis VTE Prophylaxis Intervention: SCD's Lines/Catheters IV Catheter Type (from Nrsg): Saline Lock Urinary Cath still in place: No Assessment/Plan Assessment/Plan 46 yo F with pmhx gastric bypass surgery, gastroparesis 2/2 vagotomy admitted for hand and foot swelling and peeling. Pt with multiple admissions for similar with extensive work up for malignancy which was negative. Given low albumin, suspect etio is nutritional deficiency from inability to absorb nutrients from bypass surgery + decreased PO intake-->pt with severe protein calorie malnutrition PLAN cont B complex vitamin pain management cont home meds RD notes reviewed. Unclear why calorie count never obtained. ordered yesterday decreased lasix from BID to daily as suspect pt back to dry weight. celiac screen TFTs noted. resume synthroid at decreased dose DVT prophx I will call pt's GI, Dr Tammy Wilson in the AM to f/u recent test results CM working on dispo Subjective 24 Hr Interval Summary Free Text/Dictation Pt states she had endoscopy last month with Dr Munoz Exam/Review of Systems Vital Signs Vitals Vital Signs Date Time Temp Pulse Resp B/P Pulse Ox O2 Delivery O2 Flow Rate FiO2 11/27/16 14:43 98.4 52 18 104/83 94 11/23/16 21:03 Room Air Intake and Output 11/26/16 11/26/16 11/27/16 15:00 23:00 07:00 Intake Total 920 ml 460 ml Output Total 1400 ml 600 ml Balance -480 ml -140 ml Exam cachectic no mrg lungs clear abd soft skin peeling still present Results Result Diagram: 11/26/16 0935 11/27/16 0732 Results 24 hrs Laboratory Tests Test 11/27/16 07:32 Sodium Level 138 Potassium Level 4.1 Chloride Level 106 Carbon Dioxide Level 27 Anion Gap 9 Blood Urea Nitrogen 4 L Creatinine 0.51 Glucose Level 87 # Calcium Level 7.6 L Medications Medications Current Medications Ondansetron HCl (Zofran Inj) 4 mg Q6H PRN IV NAUSEA AND/OR VOMITING; Start at 21:30 Heparin Sodium (Porcine) (Heparin (5000 Units/0.5 ml)) 5,000 unit BID SC Last administered on 11/27/16t 09:36; Admin Dose 5,000 UNIT; Start 11/11/16 at 09:00 Docusate Sodium (Colace) 100 mg BID PO Last administered on 11/27/16 09:03; Admin Dose 100 MG; Start 11/11/16 at 09:00 Folic Acid (Folic Acid) 1 mg DAILY PO Last administered on 11/27/16 09:05; Admin Dose 1 MG; Start 11/11/16 at 09:00 Pantoprazole (Protonix Tab) 40 mg DAILY@06 PO Last administered on 11/27/16 06: 38; Admin Dose 40 MG; Start 11/11/16 at 06:00 Gabapentin (Neurontin) 300 mg BID PO Last administered on 11/27/16 09:03; Admin Dose 300 MG; Start 11/11/16 at 09:00 Sucralfate (Carafate) 1 gm QID PO Last administered on 11/27/16 17:05; Admin Dose 1 GM; Start 11/11/16 at 09:00 Trazodone HCl (Desyrel) 50 mg HS PO Last administered on 11/24/16 23:06; Admin Dose 50 MG; Start 11/11/16 at 21:00 Oxycodone HCl (Roxicodone) 15 mg Q4H PRN PO PAIN LEVEL 6-10 Last administered on 11/27/16 14:25; Admin Dose 15 MG; Start 11/11/16 at 18:00 Ascorbic Acid (Vitamin C) 500 mg DAILY PO Last administered on 11/27/16 09:02; Admin Dose 500 MG; Start 11/13/16 at 09:00 Clobetasol Propionate (Temovate 0.05% Cr) 1 applic BID TOP Last administered on 11/27/16 09:07; Admin Dose 1 APPLIC; Start 11/12/16 at 21:00 Diphenhydramine HCl (Benadryl) 25 mg Q6H PRN PO ITCHING; Start 11/12/16 at 11: 00 Hydroxyzine HCl (Atarax) 50 mg Q6H PRN PO ITCHING; Start 11/12/16 at 11:00 Potassium Chloride (Potassium Chloride Pwd/Soln) 10 meq DAILY PO Last administered on 11/27/16 09:36; Admin Dose 10 MEQ; Start 11/12/16 at 11:30 Thiamine HCl (Vitamin B1) 100 mg DAILY PO Last administered on 11/27/16 09:02; Admin Dose 100 MG; Start 11/13/16 at 09:00 Zinc Sulfate (Zinc Sulfate) 220 mg DAILY PO Last administered on 11/27/16 09:03 ; Admin Dose 220 MG; Start 11/13/16 at 09:00 Lactulose (Enulose) 20 gm Q8 PO Last administered on 11/27/16 13:31; Admin Dose 20 GM; Start 11/12/16 at 14:00 Lorazepam (Ativan) 0.5 mg Q6H PRN PO ANXIETY Last administered on 11/27/16 17: 05; Admin Dose 0.5 MG; Start 11/12/16 at 12:30 Eye Lubricant (Artificial Tears Oph) 2 drop Q6H PRN BOTH EYES DRY EYES Last administered on 11/19/16 10:11; Admin Dose 2 DROP; Start 11/12/16 at 16:00 Acetaminophen (Tylenol Tab) 325 mg Q4H PRN PO PAIN AND OR ELEVATED TEMP; Start 11/12/16 at 18:30 Vitamin B Complex/ Vitamin C (Berocca) 1 cap DAILY PO Last administered on 09:02; Admin Dose 1 CAP; Start 11/14/16 at 09:00 Nystatin (Nystatin Powder) 1 applic DAILY TOP Last administered on 11/27/16 09: 07; Admin Dose 1 APPLIC; Start 11/15/16 at 09:00 Multi-Ingredient Ointment (Eucerin Cream) 1 applic BID TOP Last administered on 11/27/16 09:06; Admin Dose 1 APPLIC; Start 11/17/16 at 08:22 Montelukast Sodium (Singulair) 10 mg HS PO Last administered on 11/26/16 21:09 ; Admin Dose 10 MG; Start 11/19/16 at 21:00 Multivitamins Therapeutic (Theragran) 1 tab DAILY PO Last administered on 09:05; Admin Dose 1 TAB; Start 11/20/16 at 09:00 Mupirocin (Bactroban) 1 applic BID TOP Last administered on 11/27/16 09:06; Admin Dose 1 APPLIC; Start 11/19/16 at 11:30 Nitrofurantoin Macrocrystals (Macrobid) 100 mg BID PO Last administered on 09:03; Admin Dose 100 MG; Start 11/20/16 at 11:00 Morphine Sulfate (Ms Contin (Er)) 15 mg Q8 PO Last administered on 11/27/16 13: 31; Admin Dose 15 MG; Start 11/20/16 at 14:00 Metoprolol Tartrate (Lopressor) 12.5 mg BID PO Last administered on 11/24/16 09 :44; Admin Dose 12.5 MG; Start 11/20/16 at 10:00; Status Future Hold Venlafaxine HCl (Effexor Xr) 225 mg DAILY PO Last administered on 11/27/16 09: 04; Admin Dose 225 MG; Start 11/24/16 at 09:00 Tolterodine Tartrate (Detrol La) 4 mg HS PO ; Start 11/27/16 at 21:00 Furosemide (Lasix) 20 mg DAILY PO Last administered on 11/27/16 09:04; Admin Dose 20 MG; Start 11/27/16 at 09:00 Levothyroxine Sodium (Synthroid) 125 mcg DAILY@06 PO ; Start 11/28/16 at 06:00 OLLIE YUEN MD Nov 27, 2016 18:55
[2016-11-27 20:37] VITALS: BP 109/70; RESP 18
[2016-11-27] MEDS: traZODone 50 MG TAB PO SCH (21:00)
[2016-11-27] MEDS: TOLTERODINE (SR) 4 MG CAP PO SCH (21:41)
[2016-11-27] MEDS: MONTELUKAST 10 MG TAB PO SCH (21:41)
[2016-11-28] MEDS: oxyCODONE 15 MG TAB PO PRN ×4 (00:25→22:37)
[2016-11-28 02:00] VITALS: BP 107/73; RESP 18
[2016-11-28] MEDS: LORAZEPAM 0.5 MG TAB PO PRN ×2 (02:49→15:06)
[2016-11-28] MEDS: LACTULOSE 30ML CUP PO SCH ×3 (06:00→21:08)
[2016-11-28] MEDS ORDERED: LEVOTHYROXINE 125 MCG TAB PO SCH (06:00)
[2016-11-28] MEDS: morphine (ER) 15 MG TAB PO SCH ×3 (06:09→21:08)
[2016-11-28] MEDS: PANTOPRAZOLE (EC) 40 MG TAB PO SCH (06:09)
[2016-11-28] MEDS: LEVOTHYROXINE 125 MCG TAB PO SCH (06:09)
[2016-11-28 07:28] VITALS: BP 143/74; RESP 16
[2016-11-28 09:00] VITALS: BP 109/70; RESP 16
[2016-11-28 09:02] LABS: CALCIUM 7.3 mg/dl (8.4-10.2); CREATININE 0.43 mg/dl (0.44-1.00); POTASSIUM 3.6 mmol/L (3.5-5.1)
[2016-11-28] MEDS: THIAMINE 100 MG TAB PO SCH (09:48)
[2016-11-28] MEDS: VITAMIN B COMPLEX/VIT C CAP PO SCH (09:48)
[2016-11-28] MEDS: VENLAFAXINE (XR) 75 MG CAP PO SCH (09:49)
[2016-11-28] MEDS: GABAPENTIN 300 MG CAP PO SCH ×2 (09:49→21:08)
[2016-11-28] MEDS: MULTIVITAMINS THERAPEUTIC TAB PO SCH (09:50)
[2016-11-28] MEDS: ASCORBIC ACID 500 MG TAB PO SCH (09:50)
[2016-11-28] MEDS: SUCRALFATE 1 GM TAB PO SCH ×4 (09:50→21:10)
[2016-11-28] MEDS: FOLIC ACID 1 MG TAB PO SCH (09:50)
[2016-11-28] MEDS: DOCUSATE SODIUM 100 MG CAP PO SCH ×2 (09:50→21:00)
[2016-11-28] MEDS: ZINC SULFATE 220 MG CAP PO SCH (09:50)
[2016-11-28] MEDS: FUROSEMIDE 20 MG TAB PO SCH (09:51)
[2016-11-28] MEDS: NITROFURANTOIN (SR) 100 MG CAP PO SCH ×2 (09:52→21:08)
[2016-11-28] MEDS: POTASSIUM CHLORIDE 20 MEQ POWDER FOR ORAL SOLN PO SCH (09:52)
[2016-11-28] MEDS: EUCERIN 113 GM CR TOP SCH ×2 (09:53→21:09)
[2016-11-28] MEDS: NYSTATIN 30 GM POWDER BTL TOP SCH (09:53)
[2016-11-28] MEDS: MUPIROCIN 2% 22 GM OINT TOP SCH ×2 (09:54→21:09)
[2016-11-28] MEDS: HEPARIN 5,000 UNIT/0.5 ML VIAL SC SCH ×2 (10:11→21:00)
[2016-11-28] MEDS: CLOBETASOL 0.05% 15 GM CR TOP SCH ×2 (10:46→21:09)
[2016-11-28] MEDS: PRENATAL VITAMIN PO SCH ×2 (13:30→15:06)
[2016-11-28 14:09] VITALS: BP 146/98; RESP 16
--- NOTE | 2016-11-28 15:26 | PN ---
Date/Time of Note Date/Time of Note DATE: 11/28/16 TIME: 15:20 Assessment/Plan VTE Prophylaxis VTE Prophylaxis Intervention: SCD's Lines/Catheters IV Catheter Type (from Nrsg): Saline Lock Urinary Cath still in place: No Assessment/Plan Assessment/Plan Assessment/Plan 46 yo F with pmhx gastric bypass surgery, gastroparesis 2/2 vagotomy admitted for hand and foot swelling and peeling. Pt with multiple admissions for similar with extensive work up for malignancy which was negative. Given low albumin, suspect etio is nutritional deficiency from inability to absorb nutrients from bypass surgery + decreased PO intake-->pt with severe protein calorie malnutrition PLAN cont B complex vitamin pain management cont home meds RD notes reviewed. -->calorie count, supplements ordered per her rec cont daily lasix celiac screen in process TFTs noted. resumed synthroid at decreased dose DVT prophx I spoke with pt's GI Dr Tammy Wilson regarding recent endoscopies, he advised contacting [place] directly. have requested nursing obtain these documents. CM working on dispo. There was consideration for sending patient to hospice under diagnosis ESLD, however last PT/INR on file do not meet hospice ESLD criteria and she lacks refractory ascites, h/o SBP, HRS, refractory HE or hx variceal bleeding. Pt would qualify under adult failure to thrive, however that has not been an approve hospice primary diagnosis since 2013 Exam/Review of Systems Vital Signs Vitals Vital Signs Date Time Temp Pulse Resp B/P Pulse Ox O2 Delivery O2 Flow Rate FiO2 11/28/16 14:09 97.8 108 16 146/98 100 Intake and Output 11/27/16 11/27/16 11/28/16 15:00 23:00 07:00 Intake Total 680 ml Output Total 1600 ml Balance -920 ml Results Result Diagram: 11/26/16 0935 11/28/16 0808 Results 24 hrs Laboratory Tests Test 11/28/16 08:08 Sodium Level 132 L Potassium Level 3.6 Chloride Level 102 Carbon Dioxide Level 27 Anion Gap 7 L Blood Urea Nitrogen 3 L Creatinine 0.43 L Glucose Level 65 #L Calcium Level 7.3 L Medications Medications Current Medications Ondansetron HCl (Zofran Inj) 4 mg Q6H PRN IV NAUSEA AND/OR VOMITING; Start at 21:30 Heparin Sodium (Porcine) (Heparin (5000 Units/0.5 ml)) 5,000 unit BID SC Last administered on 11/28/16 10:11; Admin Dose 5,000 UNIT; Start 11/11/16 at 09:00 Docusate Sodium (Colace) 100 mg BID PO Last administered on 11/28/16 09:50; Admin Dose 100 MG; Start 11/11/16 at 09:00 Folic Acid (Folic Acid) 1 mg DAILY PO Last administered on 11/28/16 09:50; Admin Dose 1 MG; Start 11/11/16 at 09:00 Pantoprazole (Protonix Tab) 40 mg DAILY@06 PO Last administered on 11/28/16 06: 09; Admin Dose 40 MG; Start 11/11/16 at 06:00 Gabapentin (Neurontin) 300 mg BID PO Last administered on 11/28/16 09:49; Admin Dose 300 MG; Start 11/11/16 at 09:00 Sucralfate (Carafate) 1 gm QID PO Last administered on 11/28/16 13:42; Admin Dose 1 GM; Start 11/11/16 at 09:00 Trazodone HCl (Desyrel) 50 mg HS PO Last administered on 11/24/16 23:06; Admin Dose 50 MG; Start 11/11/16 at 21:00 Oxycodone HCl (Roxicodone) 15 mg Q4H PRN PO PAIN LEVEL 6-10 Last administered on 11/28/16 10:42; Admin Dose 15 MG; Start 11/11/16 at 18:00 Ascorbic Acid (Vitamin C) 500 mg DAILY PO Last administered on 11/28/16 09:50; Admin Dose 500 MG; Start 11/13/16 at 09:00 Clobetasol Propionate (Temovate 0.05% Cr) 1 applic BID TOP Last administered on 11/28/16 10:46; Admin Dose 1 APPLIC; Start 11/12/16 at 21:00 Diphenhydramine HCl (Benadryl) 25 mg Q6H PRN PO ITCHING; Start 11/12/16 at 11: 00 Hydroxyzine HCl (Atarax) 50 mg Q6H PRN PO ITCHING; Start 11/12/16 at 11:00 Potassium Chloride (Potassium Chloride Pwd/Soln) 10 meq DAILY PO Last administered on 11/28/16 09:52; Admin Dose 10 MEQ; Start 11/12/16 at 11:30 Thiamine HCl (Vitamin B1) 100 mg DAILY PO Last administered on 11/28/16 09:48; Admin Dose 100 MG; Start 11/13/16 at 09:00 Lactulose (Enulose) 20 gm Q8 PO Last administered on 11/28/16 13:42; Admin Dose 20 GM; Start 11/12/16 at 14:00 Lorazepam (Ativan) 0.5 mg Q6H PRN PO ANXIETY Last administered on 11/28/16 15: 06; Admin Dose 0.5 MG; Start 11/12/16 at 12:30 Eye Lubricant (Artificial Tears Oph) 2 drop Q6H PRN BOTH EYES DRY EYES Last administered on 11/19/16 10:11; Admin Dose 2 DROP; Start 11/12/16 at 16:00 Acetaminophen (Tylenol Tab) 325 mg Q4H PRN PO PAIN AND OR ELEVATED TEMP; Start 11/12/16 at 18:30 Vitamin B Complex/ Vitamin C (Berocca) 1 cap DAILY PO Last administered on 09:48; Admin Dose 1 CAP; Start 11/14/16 at 09:00 Nystatin (Nystatin Powder) 1 applic DAILY TOP Last administered on 11/28/16 09: 53; Admin Dose 1 APPLIC; Start 11/15/16 at 09:00 Multi-Ingredient Ointment (Eucerin Cream) 1 applic BID TOP Last administered on 11/28/16 09:53; Admin Dose 1 APPLIC; Start 11/17/16 at 08:22 Montelukast Sodium (Singulair) 10 mg HS PO Last administered on 11/27/16 21:41 ; Admin Dose 10 MG; Start 11/19/16 at 21:00 Multivitamins Therapeutic (Theragran) 1 tab DAILY PO Last administered on 09:50; Admin Dose 1 TAB; Start 11/20/16 at 09:00 Mupirocin (Bactroban) 1 applic BID TOP Last administered on 11/28/16 09:54; Admin Dose 1 APPLIC; Start 11/19/16 at 11:30 Nitrofurantoin Macrocrystals (Macrobid) 100 mg BID PO Last administered on 09:52; Admin Dose 100 MG; Start 11/20/16 at 11:00 Morphine Sulfate (Ms Contin (Er)) 15 mg Q8 PO Last administered on 11/28/16 13: 42; Admin Dose 15 MG; Start 11/20/16 at 14:00 Metoprolol Tartrate (Lopressor) 12.5 mg BID PO Last administered on 11/24/16 09 :44; Admin Dose 12.5 MG; Start 11/20/16 at 10:00; Status Future Hold Venlafaxine HCl (Effexor Xr) 225 mg DAILY PO Last administered on 11/28/16 09: 49; Admin Dose 225 MG; Start 11/24/16 at 09:00 Tolterodine Tartrate (Detrol La) 4 mg HS PO Last administered on 11/27/16 21:41 ; Admin Dose 4 MG; Start 11/27/16 at 21:00 Furosemide (Lasix) 20 mg DAILY PO Last administered on 11/28/16 09:51; Admin Dose 20 MG; Start 11/27/16 at 09:00 Levothyroxine Sodium (Synthroid) 125 mcg DAILY@06 PO Last administered on 06:09; Admin Dose 125 MCG; Start 11/28/16 at 06:00 Prenat Multivit/ [place]/Iron/Folic Ac () 1 tab DAILY PO Last administered on 11/28/16 15:06; Admin Dose 1 TAB; Start 11/28/16 at 13:30 Saccharomyces Boulardii (Florastor) 250 mg BID PO ; Start 11/28/16 at 21:00 OLLIE YUEN MD Nov 28, 2016 15:26
[2016-11-28] MEDS: GENTAMICIN 0.3% 3.5 GM OPH OINT RIGHT EYE SCH ×2 (16:00→21:00)
[2016-11-28] MEDS: CREON (12k-38k-60k) 1 CAP PO SCH (17:44)
[2016-11-28 19:39] VITALS: BP 108/76; RESP 20
[2016-11-28] MEDS: traZODone 50 MG TAB PO SCH (21:00)
[2016-11-28] MEDS: SACCHAROMYCES BOULARDII 250 MG CAP PO SCH (21:08)
[2016-11-28] MEDS: TOLTERODINE (SR) 4 MG CAP PO SCH (21:08)
[2016-11-28] MEDS: MONTELUKAST 10 MG TAB PO SCH (21:08)
[2016-11-29] MEDS: LORAZEPAM 0.5 MG TAB PO PRN ×3 (00:05→16:16)
[2016-11-29 01:25] VITALS: BP 110/81; RESP 20
[2016-11-29] MEDS: oxyCODONE 15 MG TAB PO PRN ×4 (03:53→23:28)
[2016-11-29] MEDS: ARTIFICIAL TEARS 15 ML OPH BOTH EYES PRN (03:55)
[2016-11-29] MEDS: LACTULOSE 30ML CUP PO SCH ×3 (06:19→22:20)
[2016-11-29] MEDS: PANTOPRAZOLE (EC) 40 MG TAB PO SCH (06:19)
[2016-11-29] MEDS: morphine (ER) 15 MG TAB PO SCH ×3 (06:19→22:20)
[2016-11-29] MEDS: LEVOTHYROXINE 125 MCG TAB PO SCH (06:19)
[2016-11-29] MEDS: NITROFURANTOIN (SR) 100 MG CAP PO SCH ×2 (09:31→22:18)
[2016-11-29] MEDS: VITAMIN B COMPLEX/VIT C CAP PO SCH (09:31)
[2016-11-29] MEDS: PRENATAL VITAMIN PO SCH (09:31)
[2016-11-29] MEDS: SUCRALFATE 1 GM TAB PO SCH ×4 (09:31→22:18)
[2016-11-29] MEDS: CREON (12k-38k-60k) 1 CAP PO SCH ×3 (09:31→17:34)
[2016-11-29] MEDS: VENLAFAXINE (XR) 75 MG CAP PO SCH (09:32)
[2016-11-29] MEDS: GABAPENTIN 300 MG CAP PO SCH ×2 (09:32→22:19)
[2016-11-29] MEDS: MULTIVITAMINS THERAPEUTIC TAB PO SCH (09:32)
[2016-11-29] MEDS: THIAMINE 100 MG TAB PO SCH (09:32)
[2016-11-29] MEDS: DOCUSATE SODIUM 100 MG CAP PO SCH ×2 (09:32→22:18)
[2016-11-29] MEDS: ASCORBIC ACID 500 MG TAB PO SCH (09:32)
[2016-11-29] MEDS: FOLIC ACID 1 MG TAB PO SCH (09:32)
[2016-11-29] MEDS: CLOBETASOL 0.05% 15 GM CR TOP SCH ×2 (09:33→22:19)
[2016-11-29] MEDS: SACCHAROMYCES BOULARDII 250 MG CAP PO SCH ×2 (09:33→22:19)
[2016-11-29] MEDS: POTASSIUM CHLORIDE 20 MEQ POWDER FOR ORAL SOLN PO SCH (09:33)
[2016-11-29] MEDS: FUROSEMIDE 20 MG TAB PO SCH (09:33)
[2016-11-29] MEDS: GENTAMICIN 0.3% 5 ML OPH RIGHT EYE SCH ×3 (09:33→22:19)
[2016-11-29] MEDS: MUPIROCIN 2% 22 GM OINT TOP SCH ×2 (09:34→22:21)
[2016-11-29] MEDS: EUCERIN 113 GM CR TOP SCH ×2 (09:34→21:00)
[2016-11-29] MEDS: NYSTATIN 30 GM POWDER BTL TOP SCH (09:34)
[2016-11-29] MEDS: HEPARIN 5,000 UNIT/0.5 ML VIAL SC SCH ×2 (09:48→21:00)
--- NOTE | 2016-11-29 13:06 | PN ---
Date/Time of Note Date/Time of Note DATE: 11/29/16 TIME: 13:04 Assessment/Plan VTE Prophylaxis VTE Prophylaxis Intervention: SCD's Lines/Catheters IV Catheter Type (from Nrsg): Saline Lock Urinary Cath still in place: No Assessment/Plan Assessment/Plan 46 yo F with pmhx gastric bypass surgery, gastroparesis 2/2 vagotomy admitted for hand and foot swelling and peeling. Pt with multiple admissions for similar with extensive work up for malignancy which was negative. Given low albumin, suspect etio is nutritional deficiency from inability to absorb nutrients from bypass surgery + decreased PO intake-->pt with severe protein calorie malnutrition PLAN cont B complex vitamin pain management cont home meds RD notes reviewed. -->calorie count, supplements ordered per her rec cont daily lasix celiac screen in process TFTs noted. resumed Synthroid at decreased dose DVT prophx RASHAWN sent to [place] for GI results Subjective 24 Hr Interval Summary Free Text/Dictation no complaints, dispo pending Exam/Review of Systems Vital Signs Vitals Vital Signs Date Time Temp Pulse Resp B/P Pulse Ox O2 Delivery O2 Flow Rate FiO2 11/29/16 01:25 97.8 97 20 110/81 100 Intake and Output 11/28/16 11/28/16 11/29/16 15:00 23:00 07:00 Intake Total 800 ml 360 ml 240 ml Output Total 1000 ml 900 ml 400 ml Balance -200 ml -540 ml -160 ml Exam nad no mrg lung clear abd soft peeling unchanged Results Result Diagram: 11/26/16 0935 11/28/16 0808 Medications Medications Current Medications Ondansetron HCl (Zofran Inj) 4 mg Q6H PRN IV NAUSEA AND/OR VOMITING; Start at 21:30 Heparin Sodium (Porcine) (Heparin (5000 Units/0.5 ml)) 5,000 unit BID SC Last administered on 11/29/16 09:48; Admin Dose 5,000 UNIT; Start 11/11/16 at 09:00 Docusate Sodium (Colace) 100 mg BID PO Last administered on 11/29/16 09:32; Admin Dose 100 MG; Start 11/11/16 at 09:00 Folic Acid (Folic Acid) 1 mg DAILY PO Last administered on 11/29/16 09:32; Admin Dose 1 MG; Start 11/11/16 at 09:00 Pantoprazole (Protonix Tab) 40 mg DAILY@06 PO Last administered on 11/29/16 06: 19; Admin Dose 40 MG; Start 11/11/16 at 06:00 Gabapentin (Neurontin) 300 mg BID PO Last administered on 11/29/16 09:32; Admin Dose 300 MG; Start 11/11/16 at 09:00 Sucralfate (Carafate) 1 gm QID PO Last administered on 11/29/16 09:31; Admin Dose 1 GM; Start 11/11/16 at 09:00 Trazodone HCl (Desyrel) 50 mg HS PO Last administered on 11/24/16 23:06; Admin Dose 50 MG; Start 11/11/16 at 21:00 Oxycodone HCl (Roxicodone) 15 mg Q4H PRN PO PAIN LEVEL 6-10 Last administered on 11/29/16 09:32; Admin Dose 15 MG; Start 11/11/16 at 18:00 Ascorbic Acid (Vitamin C) 500 mg DAILY PO Last administered on 11/29/16 09:32; Admin Dose 500 MG; Start 11/13/16 at 09:00 Clobetasol Propionate (Temovate 0.05% Cr) 1 applic BID TOP Last administered on 11/29/16 09:33; Admin Dose 1 APPLIC; Start 11/12/16 at 21:00 Diphenhydramine HCl (Benadryl) 25 mg Q6H PRN PO ITCHING; Start 11/12/16 at 11: 00 Hydroxyzine HCl (Atarax) 50 mg Q6H PRN PO ITCHING; Start 11/12/16 at 11:00 Potassium Chloride (Potassium Chloride Pwd/Soln) 10 meq DAILY PO Last administered on 11/29/16 09:33; Admin Dose 10 MEQ; Start 11/12/16 at 11:30 Thiamine HCl (Vitamin B1) 100 mg DAILY PO Last administered on 11/29/16 09:32; Admin Dose 100 MG; Start 11/13/16 at 09:00 Lactulose (Enulose) 20 gm Q8 PO Last administered on 11/29/16 06:19; Admin Dose 20 GM; Start 11/12/16 at 14:00 Lorazepam (Ativan) 0.5 mg Q6H PRN PO ANXIETY Last administered on 11/29/16 09: 32; Admin Dose 0.5 MG; Start 11/12/16 at 12:30 Eye Lubricant (Artificial Tears Oph) 2 drop Q6H PRN BOTH EYES DRY EYES Last administered on 11/29/16 03:55; Admin Dose 2 DROP; Start 11/12/16 at 16:00 Acetaminophen (Tylenol Tab) 325 mg Q4H PRN PO PAIN AND OR ELEVATED TEMP; Start 11/12/16 at 18:30 Vitamin B Complex/ Vitamin C (Berocca) 1 cap DAILY PO Last administered on 09:31; Admin Dose 1 CAP; Start 11/14/16 at 09:00 Nystatin (Nystatin Powder) 1 applic DAILY TOP Last administered on 11/29/16 09: 34; Admin Dose 1 APPLIC; Start 11/15/16 at 09:00 Multi-Ingredient Ointment (Eucerin Cream) 1 applic BID TOP Last administered on 11/29/16 09:34; Admin Dose 1 APPLIC; Start 11/17/16 at 08:22 Montelukast Sodium (Singulair) 10 mg HS PO Last administered on 11/28/16 21:08 ; Admin Dose 10 MG; Start 11/19/16 at 21:00 Multivitamins Therapeutic (Theragran) 1 tab DAILY PO Last administered on 09:32; Admin Dose 1 TAB; Start 11/20/16 at 09:00 Mupirocin (Bactroban) 1 applic BID TOP Last administered on 11/29/16 09:34; Admin Dose 1 APPLIC; Start 11/19/16 at 11:30 Nitrofurantoin Macrocrystals (Macrobid) 100 mg BID PO Last administered on 09:31; Admin Dose 100 MG; Start 11/20/16 at 11:00 Morphine Sulfate (Ms Contin (Er)) 15 mg Q8 PO Last administered on 11/29/16 06: 19; Admin Dose 15 MG; Start 11/20/16 at 14:00 Metoprolol Tartrate (Lopressor) 12.5 mg BID PO Last administered on 11/24/16 09 :44; Admin Dose 12.5 MG; Start 11/20/16 at 10:00; Status Future Hold Venlafaxine HCl (Effexor Xr) 225 mg DAILY PO Last administered on 11/29/16 09: 32; Admin Dose 225 MG; Start 11/24/16 at 09:00 Tolterodine Tartrate (Detrol La) 4 mg HS PO Last administered on 11/28/16 21:08 ; Admin Dose 4 MG; Start 11/27/16 at 21:00 Furosemide (Lasix) 20 mg DAILY PO Last administered on 11/29/16 09:33; Admin Dose 20 MG; Start 11/27/16 at 09:00 Levothyroxine Sodium (Synthroid) 125 mcg DAILY@06 PO Last administered on 06:19; Admin Dose 125 MCG; Start 11/28/16 at 06:00 Prenat Multivit/ [place]/Iron/Folic Ac () 1 tab DAILY PO Last administered on 11/29/16 09:31; Admin Dose 1 TAB; Start 11/28/16 at 13:30 Saccharomyces Boulardii (Florastor) 250 mg BID PO Last administered on 09:33; Admin Dose 250 MG; Start 11/28/16 at 21:00 Gentamicin Sulfate (Gentamicin 0.3% Oph Drop) 1 drop TID RIGHT EYE Last administered on 11/29/16 09:33; Admin Dose 1 DROP; Start 11/29/16 at 09:00 OLLIE YUEN MD Nov 29, 2016 13:06
[2016-11-29 13:38] VITALS: BP 97/67; RESP 16
[2016-11-29 20:16] VITALS: BP 115/77; RESP 16
[2016-11-29] MEDS: TOLTERODINE (SR) 4 MG CAP PO SCH (22:18)
[2016-11-29] MEDS: traZODone 50 MG TAB PO SCH (22:18)
[2016-11-29] MEDS: MONTELUKAST 10 MG TAB PO SCH (22:19)
[2016-11-30] MEDS: LORAZEPAM 0.5 MG TAB PO PRN ×3 (00:34→23:49)
[2016-11-30 01:57] VITALS: BP 95/63; RESP 20
[2016-11-30] MEDS: PANTOPRAZOLE (EC) 40 MG TAB PO SCH (07:17)
[2016-11-30] MEDS: morphine (ER) 15 MG TAB PO SCH ×3 (07:17→21:23)
[2016-11-30] MEDS: LACTULOSE 30ML CUP PO SCH ×3 (07:17→21:23)
[2016-11-30] MEDS: LEVOTHYROXINE 125 MCG TAB PO SCH (07:17)
[2016-11-30 07:37] VITALS: BP 127/75; RESP 18
[2016-11-30] MEDS: EUCERIN 113 GM CR TOP SCH ×2 (09:00→21:28)
[2016-11-30] MEDS: GABAPENTIN 300 MG CAP PO SCH ×2 (10:07→21:22)
[2016-11-30] MEDS: FOLIC ACID 1 MG TAB PO SCH (10:07)
[2016-11-30] MEDS: FUROSEMIDE 20 MG TAB PO SCH (10:07)
[2016-11-30] MEDS: VENLAFAXINE (XR) 75 MG CAP PO SCH (10:07)
[2016-11-30] MEDS: SUCRALFATE 1 GM TAB PO SCH ×4 (10:07→21:22)
[2016-11-30] MEDS: VITAMIN B COMPLEX/VIT C CAP PO SCH (10:08)
[2016-11-30] MEDS: ASCORBIC ACID 500 MG TAB PO SCH (10:08)
[2016-11-30] MEDS: POTASSIUM CHLORIDE 20 MEQ POWDER FOR ORAL SOLN PO SCH (10:08)
[2016-11-30] MEDS: MULTIVITAMINS THERAPEUTIC TAB PO SCH (10:08)
[2016-11-30] MEDS: CREON (12k-38k-60k) 1 CAP PO SCH ×3 (10:09→17:58)
[2016-11-30] MEDS: THIAMINE 100 MG TAB PO SCH (10:09)
[2016-11-30] MEDS: SACCHAROMYCES BOULARDII 250 MG CAP PO SCH ×2 (10:09→21:23)
[2016-11-30] MEDS: PRENATAL VITAMIN PO SCH (10:09)
[2016-11-30] MEDS: DOCUSATE SODIUM 100 MG CAP PO SCH ×2 (10:09→21:22)
[2016-11-30] MEDS: NITROFURANTOIN (SR) 100 MG CAP PO SCH ×2 (10:09→21:22)
[2016-11-30] MEDS: MUPIROCIN 2% 22 GM OINT TOP SCH ×2 (10:10→21:26)
[2016-11-30] MEDS: GENTAMICIN 0.3% 5 ML OPH RIGHT EYE SCH ×3 (10:10→21:24)
[2016-11-30] MEDS: CLOBETASOL 0.05% 15 GM CR TOP SCH ×2 (10:10→21:25)
[2016-11-30] MEDS: ARTIFICIAL TEARS 15 ML OPH BOTH EYES PRN (10:10)
[2016-11-30] MEDS: NYSTATIN 30 GM POWDER BTL TOP SCH (10:11)
[2016-11-30] MEDS: HEPARIN 5,000 UNIT/0.5 ML VIAL SC SCH ×2 (10:29→21:00)
[2016-11-30] MEDS: oxyCODONE 15 MG TAB PO PRN ×3 (10:38→19:50)
[2016-11-30 10:53] LABS: CALCIUM 7.7 mg/dl (8.4-10.2); CREATININE 0.52 mg/dl (0.44-1.00); POTASSIUM 3.5 mmol/L (3.5-5.1)
[2016-11-30] MEDS ORDERED: MAGNESIUM OXIDE 400 MG TAB PO ONE (12:30)
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
[2016-11-30 20:56] VITALS: BP 114/80; RESP 18
[2016-11-30] MEDS: traZODone 50 MG TAB PO SCH (21:00)
[2016-11-30] MEDS: TOLTERODINE (SR) 4 MG CAP PO SCH (21:22)
[2016-11-30] MEDS: MONTELUKAST 10 MG TAB PO SCH (21:23)
[2016-12-01 02:47] VITALS: BP 111/76; RESP 16
[2016-12-01] MEDS: PANTOPRAZOLE (EC) 40 MG TAB PO SCH (05:51)
[2016-12-01] MEDS: morphine (ER) 15 MG TAB PO SCH ×3 (05:51→22:10)
[2016-12-01] MEDS: LEVOTHYROXINE 125 MCG TAB PO SCH (05:51)
[2016-12-01] MEDS: LACTULOSE 30ML CUP PO SCH ×3 (05:51→22:11)
[2016-12-01 07:54] VITALS: BP 112/72; RESP 16
[2016-12-01] MEDS: oxyCODONE 15 MG TAB PO PRN ×3 (08:27→18:09)
[2016-12-01] MEDS: HEPARIN 5,000 UNIT/0.5 ML VIAL SC SCH (09:00)
[2016-12-01] MEDS: ASCORBIC ACID 500 MG TAB PO SCH (09:46)
[2016-12-01] MEDS: DOCUSATE SODIUM 100 MG CAP PO SCH ×3 (09:46→22:10)
[2016-12-01] MEDS: THIAMINE 100 MG TAB PO SCH (09:46)
[2016-12-01] MEDS: SUCRALFATE 1 GM TAB PO SCH ×3 (09:46→12:40)
[2016-12-01] MEDS: NITROFURANTOIN (SR) 100 MG CAP PO SCH ×2 (09:46→22:12)
[2016-12-01] MEDS: GABAPENTIN 300 MG CAP PO SCH ×2 (09:46→22:11)
[2016-12-01] MEDS: VITAMIN B COMPLEX/VIT C CAP PO SCH (09:46)
[2016-12-01] MEDS: SACCHAROMYCES BOULARDII 250 MG CAP PO SCH ×2 (09:46→22:12)
[2016-12-01] MEDS: MULTIVITAMINS THERAPEUTIC TAB PO SCH (09:47)
[2016-12-01] MEDS: CREON (12k-38k-60k) 1 CAP PO SCH ×3 (09:47→18:08)
[2016-12-01] MEDS: FOLIC ACID 1 MG TAB PO SCH (09:47)
[2016-12-01] MEDS: PRENATAL VITAMIN PO SCH (09:47)
[2016-12-01] MEDS: FUROSEMIDE 20 MG TAB PO SCH (09:48)
[2016-12-01] MEDS: VENLAFAXINE (XR) 75 MG CAP PO SCH (09:49)
[2016-12-01] MEDS: POTASSIUM CHLORIDE 20 MEQ POWDER FOR ORAL SOLN PO SCH (09:49)
[2016-12-01] MEDS: EUCERIN 113 GM CR TOP SCH ×2 (09:50→22:11)
[2016-12-01] MEDS: NYSTATIN 30 GM POWDER BTL TOP SCH (09:50)
[2016-12-01] MEDS: GENTAMICIN 0.3% 5 ML OPH RIGHT EYE SCH ×3 (09:51→22:16)
[2016-12-01] MEDS: MUPIROCIN 2% 22 GM OINT TOP SCH ×2 (09:51→22:14)
[2016-12-01] MEDS: CLOBETASOL 0.05% 15 GM CR TOP SCH ×2 (09:51→22:18)
[2016-12-01] MEDS: LORAZEPAM 0.5 MG TAB PO PRN ×2 (12:26→18:09)
--- NOTE | 2016-12-01 13:35 | PN ---
Date/Time of Note Date/Time of Note DATE: 12/01/16 TIME: 13:26 Assessment/Plan VTE Prophylaxis VTE Prophylaxis Intervention: SCD's Lines/Catheters IV Catheter Type (from Nrsg): Saline Lock Urinary Cath still in place: No Assessment/Plan Assessment/Plan 46 yo F with pmhx gastric bypass surgery, gastroparesis 2/2 vagotomy admitted for hand and foot swelling and peeling. Pt with multiple admissions for similar with extensive work up for malignancy which was negative. Given low albumin, suspect etio is nutritional deficiency from inability to absorb nutrients from bypass surgery + decreased PO intake-->pt with severe protein calorie malnutrition PLAN cont B complex vitamin pain management cont home meds RD notes reviewed. -->calorie count in process, supplements ordered per her rec cont daily lasix celiac screen in process TFTs noted. resumed Synthroid at decreased dose; recheck TFTs in AM DVT prophx Pt was wondering if given how long WLS was, why would her symptoms start now? There is evidence to support complications from WLS can be seen years after procedure. Aretha Strickland, et al. "Fatal malnutrition 6 years after gastric bypass surgery." Archives of internal medicine 170.11 (2010): [phone]. Pt should follow up with both her GI and bariatric surgeon after discharge Subjective 24 Hr Interval Summary Free Text/Dictation When I mentioned pt's EtOH related admissions to [facility] earlier this summer she became evasive. also reports an itchy patch on L rib cage Exam/Review of Systems Vital Signs Vitals Vital Signs Date Time Temp Pulse Resp B/P Pulse Ox O2 Delivery O2 Flow Rate FiO2 12/01/16 07:54 98.5 105 16 112/72 95 Intake and Output 11/30/16 11/30/16 12/01/16 15:00 23:00 07:00 Intake Total 1300 ml 840 ml Output Total 1600 ml 250 ml Balance -300 ml 590 ml Exam nad no mrg lungs clear abd soft + 4 cm patch of raised white papules on L ribcage Results Result Diagram: 11/30/16 0953 Results 24 hrs Laboratory Tests Test 12/01/16 12:28 Lab Scanned Report REFERENCE LAB Medications Medications Current Medications Ondansetron HCl (Zofran Inj) 4 mg Q6H PRN IV NAUSEA AND/OR VOMITING; Start at 21:30 Docusate Sodium (Colace) 100 mg BID PO Last administered on 12/01/16 09:46; Admin Dose 100 MG; Start 11/11/16 at 09:00 Folic Acid (Folic Acid) 1 mg DAILY PO Last administered on 12/01/16 09:47; Admin Dose 1 MG; Start 11/11/16 at 09:00 Pantoprazole (Protonix Tab) 40 mg DAILY@06 PO Last administered on 12/01/16 05: 51; Admin Dose 40 MG; Start 11/11/16 at 06:00 Gabapentin (Neurontin) 300 mg BID PO Last administered on 12/01/16 09:46; Admin Dose 300 MG; Start 11/11/16 at 09:00 Trazodone HCl (Desyrel) 50 mg HS PO Last administered on 11/29/16 22:18; Admin Dose 50 MG; Start 11/11/16 at 21:00 Oxycodone HCl (Roxicodone) 15 mg Q4H PRN PO PAIN LEVEL 6-10 Last administered on 12/01/16 12:27; Admin Dose 15 MG; Start 11/11/16 at 18:00 Ascorbic Acid (Vitamin C) 500 mg DAILY PO Last administered on 12/01/16 09:46; Admin Dose 500 MG; Start 11/13/16 at 09:00 Clobetasol Propionate (Temovate 0.05% Cr) 1 applic BID TOP Last administered on 12/01/16 09:51; Admin Dose 1 APPLIC; Start 11/12/16 at 21:00 Diphenhydramine HCl (Benadryl) 25 mg Q6H PRN PO ITCHING Last administered on 00:34; Admin Dose 25 MG; Start 11/12/16 at 11:00 Hydroxyzine HCl (Atarax) 50 mg Q6H PRN PO ITCHING; Start 11/12/16 at 11:00 Potassium Chloride (Potassium Chloride Pwd/Soln) 10 meq DAILY PO Last administered on 12/01/16 09:49; Admin Dose 10 MEQ; Start 11/12/16 at 11:30 Thiamine HCl (Vitamin B1) 100 mg DAILY PO Last administered on 12/01/16 09:46; Admin Dose 100 MG; Start 11/13/16 at 09:00 Lactulose (Enulose) 20 gm Q8 PO Last administered on 11/30/16 14:30; Admin Dose 20 GM; Start 11/12/16 at 14:00 Lorazepam (Ativan) 0.5 mg Q6H PRN PO ANXIETY Last administered on 12/01/16 12: 26; Admin Dose 0.5 MG; Start 11/12/16 at 12:30 Eye Lubricant (Artificial Tears Oph) 2 drop Q6H PRN BOTH EYES DRY EYES Last administered on 11/30/16 10:10; Admin Dose 2 DROP; Start 11/12/16 at 16:00 Acetaminophen (Tylenol Tab) 325 mg Q4H PRN PO PAIN AND OR ELEVATED TEMP; Start 11/12/16 at 18:30 Vitamin B Complex/ Vitamin C (Berocca) 1 cap DAILY PO Last administered on 09:46; Admin Dose 1 CAP; Start 11/14/16 at 09:00 Nystatin (Nystatin Powder) 1 applic DAILY TOP Last administered on 12/01/16 09: 50; Admin Dose 1 APPLIC; Start 11/15/16 at 09:00 Multi-Ingredient Ointment (Eucerin Cream) 1 applic BID TOP Last administered on 12/01/16 09:50; Admin Dose 1 APPLIC; Start 11/17/16 at 08:22 Montelukast Sodium (Singulair) 10 mg HS PO Last administered on 11/30/16 21:23 ; Admin Dose 10 MG; Start 11/19/16 at 21:00 Multivitamins Therapeutic (Theragran) 1 tab DAILY PO Last administered on 09:47; Admin Dose 1 TAB; Start 11/20/16 at 09:00 Mupirocin (Bactroban) 1 applic BID TOP Last administered on 12/01/16 09:51; Admin Dose 1 APPLIC; Start 11/19/16 at 11:30 Nitrofurantoin Macrocrystals (Macrobid) 100 mg BID PO Last administered on 09:46; Admin Dose 100 MG; Start 11/20/16 at 11:00 Morphine Sulfate (Ms Contin (Er)) 15 mg Q8 PO Last administered on 12/01/16 05: 51; Admin Dose 15 MG; Start 11/20/16 at 14:00 Metoprolol Tartrate (Lopressor) 12.5 mg BID PO Last administered on 11/24/16 09 :44; Admin Dose 12.5 MG; Start 11/20/16 at 10:00; Status Future Hold Venlafaxine HCl (Effexor Xr) 225 mg DAILY PO Last administered on 12/01/16 09: 49; Admin Dose 225 MG; Start 11/24/16 at 09:00 Tolterodine Tartrate (Detrol La) 4 mg HS PO Last administered on 11/30/16 21:22 ; Admin Dose 4 MG; Start 11/27/16 at 21:00 Furosemide (Lasix) 20 mg DAILY PO Last administered on 12/01/16 09:48; Admin Dose 20 MG; Start 11/27/16 at 09:00 Levothyroxine Sodium (Synthroid) 125 mcg DAILY@06 PO Last administered on 05:51; Admin Dose 125 MCG; Start 11/28/16 at 06:00 Prenat Multivit/ [place]/Iron/Folic Ac () 1 tab DAILY PO Last administered on 12/01/16 09:47; Admin Dose 1 TAB; Start 11/28/16 at 13:30 Saccharomyces Boulardii (Florastor) 250 mg BID PO Last administered on 09:46; Admin Dose 250 MG; Start 11/28/16 at 21:00 Gentamicin Sulfate (Gentamicin 0.3% Oph Drop) 1 drop TID RIGHT EYE Last administered on 12/01/16 12:26; Admin Dose 1 DROP; Start 11/29/16 at 09:00 Hydrocortisone (Hydrocortisone 0.5% Cr) 1 applic BID TOP ; Start 12/01/16 at 21: 00; Status OLLIE LEMA MD Dec 01, 2016 13:35
[2016-12-01 19:30] VITALS: BP 107/73; RESP 18
[2016-12-01] MEDS: MONTELUKAST 10 MG TAB PO SCH (22:11)
[2016-12-01] MEDS: traZODone 50 MG TAB PO SCH (22:12)
[2016-12-01] MEDS: HYDROCORTISONE 0.5% 28.35 GM CR TOP SCH (22:13)
[2016-12-01] MEDS: TOLTERODINE (SR) 4 MG CAP PO SCH (22:14)
[2016-12-01] MEDS: ARTIFICIAL TEARS 15 ML OPH BOTH EYES PRN (22:16)
[2016-12-02 02:00] VITALS: BP 82/56; RESP 18
[2016-12-02] MEDS: LEVOTHYROXINE 125 MCG TAB PO SCH (06:51)
[2016-12-02] MEDS: LACTULOSE 30ML CUP PO SCH ×3 (06:51→21:55)
[2016-12-02] MEDS: morphine (ER) 15 MG TAB PO SCH ×3 (06:51→21:54)
[2016-12-02] MEDS: PANTOPRAZOLE (EC) 40 MG TAB PO SCH (06:51)
[2016-12-02 08:13] VITALS: BP 92/63; RESP 18
[2016-12-02] MEDS: MULTIVITAMINS THERAPEUTIC TAB PO SCH (09:22)
[2016-12-02] MEDS: NITROFURANTOIN (SR) 100 MG CAP PO SCH ×2 (09:22→21:54)
[2016-12-02] MEDS: GABAPENTIN 300 MG CAP PO SCH ×2 (09:22→21:53)
[2016-12-02] MEDS: DOCUSATE SODIUM 100 MG CAP PO SCH ×2 (09:22→21:53)
[2016-12-02] MEDS: POTASSIUM CHLORIDE 20 MEQ POWDER FOR ORAL SOLN PO SCH (09:22)
[2016-12-02] MEDS: THIAMINE 100 MG TAB PO SCH (09:22)
[2016-12-02] MEDS: PRENATAL VITAMIN PO SCH (09:23)
[2016-12-02] MEDS: VENLAFAXINE (XR) 75 MG CAP PO SCH (09:23)
[2016-12-02] MEDS: VITAMIN B COMPLEX/VIT C CAP PO SCH (09:23)
[2016-12-02] MEDS: FUROSEMIDE 20 MG TAB PO SCH (09:23)
[2016-12-02] MEDS: FOLIC ACID 1 MG TAB PO SCH (09:23)
[2016-12-02] MEDS: SACCHAROMYCES BOULARDII 250 MG CAP PO SCH ×2 (09:23→21:53)
[2016-12-02] MEDS: HYDROCORTISONE 0.5% 28.35 GM CR TOP SCH ×2 (09:24→21:54)
[2016-12-02] MEDS: ASCORBIC ACID 500 MG TAB PO SCH (09:24)
[2016-12-02] MEDS: CLOBETASOL 0.05% 15 GM CR TOP SCH ×2 (09:25→21:54)
[2016-12-02] MEDS: MUPIROCIN 2% 22 GM OINT TOP SCH ×2 (09:26→21:54)
[2016-12-02] MEDS: EUCERIN 113 GM CR TOP SCH ×2 (09:26→21:00)
[2016-12-02] MEDS: NYSTATIN 30 GM POWDER BTL TOP SCH (09:29)
[2016-12-02] MEDS: CREON (12k-38k-60k) 1 CAP PO SCH ×3 (09:36→18:16)
[2016-12-02] MEDS: oxyCODONE 15 MG TAB PO PRN ×2 (09:36→16:54)
[2016-12-02] MEDS: LORAZEPAM 0.5 MG TAB PO PRN ×2 (09:36→16:54)
[2016-12-02] MEDS: GENTAMICIN 0.3% 5 ML OPH RIGHT EYE SCH ×3 (09:48→21:54)
[2016-12-02 11:12] LABS: ALBUMIN 2.2 g/dl (3.3-4.9); ALBUMIN/GLOBULIN RATIO 0.66; BILIRUBIN,INDIRECT 0.7 mg/dl (0-1.1); BILIRUBIN,TOTAL 0.7 mg/dl (0.2-1.3); CALCIUM 7.8 mg/dl (8.4-10.2); CREATININE 0.56 mg/dl (0.44-1.00); POTASSIUM 3.8 mmol/L (3.5-5.1); TOTAL PROTEIN 5.5 g/dl (6.1-8.1)
[2016-12-02 11:45] LABS: THYROID STIMULATING HORMONE < 0.015 MIU/L (0.465-4.680)
[2016-12-02 14:30] VITALS: BP 94/68; RESP 20
--- NOTE | 2016-12-02 16:02 | PN ---
Date/Time of Note Date/Time of Note DATE: 12/02/16 TIME: 15:55 Assessment/Plan VTE Prophylaxis VTE Prophylaxis Intervention: SCD's Lines/Catheters IV Catheter Type (from Nrsg): Saline Lock Urinary Cath still in place: Yes Reason Cath still needed: other (indicate) (pt refusing dc) Assessment/Plan Assessment/Plan 46 yo F with pmhx gastric bypass surgery, gastroparesis 2/2 vagotomy admitted for hand and foot swelling and peeling. Pt with multiple admissions for similar with extensive work up for malignancy which was negative. Given low albumin, suspect etio is nutritional deficiency from inability to absorb nutrients from bypass surgery + decreased PO intake-->pt with severe protein calorie malnutrition PLAN cont B complex vitamin pain management cont home meds RD notes reviewed. -->calorie count in process, supplements ordered per her rec. await calorie count reports. cont daily lasix celiac screen negative Repeat TFTs with persistent hyperthyroid. will again hold Synthroid DVT prophx hyponatremia: FW restriction Pt remains medically stable for transfer to SNF. Does not meet hospice criteria as pt without proof of ESLD. Pt needs to f/u with her chief underwriter and bariatrician after discharge. Subjective 24 Hr Interval Summary Free Text/Dictation Reports low energy. Calorie count results pending Exam/Review of Systems Vital Signs Vitals Vital Signs Date Time Temp Pulse Resp B/P Pulse Ox O2 Delivery O2 Flow Rate FiO2 12/02/16 08:13 98.0 105 18 92/63 97 12/01/16 16:52 21 Intake and Output 12/01/16 12/01/16 12/02/16 15:00 23:00 07:00 Intake Total 1200 ml Output Total 1500 ml Balance -300 ml Exam nad lungs clear abd soft skin peeling unchanged trace LE edema Results Result Diagram: 12/02/16 1009 Results 24 hrs Laboratory Tests Test 12/02/16 10:09 Sodium Level 132 L Potassium Level 3.8 Chloride Level 101 Carbon Dioxide Level 27 Anion Gap 8 Blood Urea Nitrogen 4 L Creatinine 0.56 Glucose Level 98 Calcium Level 7.8 L Total Bilirubin 0.7 Direct Bilirubin 0.00 Indirect Bilirubin 0.7 Aspartate Amino Transf (AST/SGOT) 32 Alanine Aminotransferase (ALT/SGPT) 38 Alkaline Phosphatase 155 H Total Protein 5.5 L Albumin 2.2 L Globulin 3.30 H Albumin/Globulin Ratio 0.66 Thyroid Stimulating Hormone (TSH) < 0.015 L Free Thyroxine 4.08 H Thyroxine (T4) 6.7 Medications Medications Current Medications Ondansetron HCl (Zofran Inj) 4 mg Q6H PRN IV NAUSEA AND/OR VOMITING; Start at 21:30 Docusate Sodium (Colace) 100 mg BID PO Last administered on 12/02/16 09:22; Admin Dose 100 MG; Start 11/11/16 at 09:00 Folic Acid (Folic Acid) 1 mg DAILY PO Last administered on 12/02/16 09:23; Admin Dose 1 MG; Start 11/11/16 at 09:00 Pantoprazole (Protonix Tab) 40 mg DAILY@06 PO Last administered on 12/02/16 06 :51; Admin Dose 40 MG; Start 11/11/16 at 06:00 Gabapentin (Neurontin) 300 mg BID PO Last administered on 12/02/16 09:22; Admin Dose 300 MG; Start 11/11/16 at 09:00 Trazodone HCl (Desyrel) 50 mg HS PO Last administered on 12/01/16 22:12; Admin Dose 50 MG; Start 11/11/16 at 21:00 Oxycodone HCl (Roxicodone) 15 mg Q4H PRN PO PAIN LEVEL 6-10 Last administered on 12/02/16 09:36; Admin Dose 15 MG; Start 11/11/16 at 18:00 Ascorbic Acid (Vitamin C) 500 mg DAILY PO Last administered on 12/02/16 09:24 ; Admin Dose 500 MG; Start 11/13/16 at 09:00 Clobetasol Propionate (Temovate 0.05% Cr) 1 applic BID TOP Last administered on 12/02/16 09:25; Admin Dose 1 APPLIC; Start 11/12/16 at 21:00 Diphenhydramine HCl (Benadryl) 25 mg Q6H PRN PO ITCHING Last administered on 00:34; Admin Dose 25 MG; Start 11/12/16 at 11:00 Hydroxyzine HCl (Atarax) 50 mg Q6H PRN PO ITCHING; Start 11/12/16 at 11:00 Potassium Chloride (Potassium Chloride Pwd/Soln) 10 meq DAILY PO Last administered on 12/02/16 09:22; Admin Dose 10 MEQ; Start 11/12/16 at 11:30 Thiamine HCl (Vitamin B1) 100 mg DAILY PO Last administered on 12/02/16 09:22 ; Admin Dose 100 MG; Start 11/13/16 at 09:00 Lactulose (Enulose) 20 gm Q8 PO Last administered on 12/02/16 15:06; Admin Dose 20 GM; Start 11/12/16 at 14:00 Lorazepam (Ativan) 0.5 mg Q6H PRN PO ANXIETY Last administered on 12/02/16 09: 36; Admin Dose 0.5 MG; Start 11/12/16 at 12:30 Eye Lubricant (Artificial Tears Oph) 2 drop Q6H PRN BOTH EYES DRY EYES Last administered on 12/01/16 22:16; Admin Dose 2 DROP; Start 11/12/16 at 16:00 Acetaminophen (Tylenol Tab) 325 mg Q4H PRN PO PAIN AND OR ELEVATED TEMP; Start 11/12/16 at 18:30 Vitamin B Complex/ Vitamin C (Berocca) 1 cap DAILY PO Last administered on 12/02 09:23; Admin Dose 1 CAP; Start 11/14/16 at 09:00 Nystatin (Nystatin Powder) 1 applic DAILY TOP Last administered on 12/02/16 09 :29; Admin Dose 1 APPLIC; Start 11/15/16 at 09:00 Multi-Ingredient Ointment (Eucerin Cream) 1 applic BID TOP Last administered on 12/02/16 09:26; Admin Dose 1 APPLIC; Start 11/17/16 at 08:22 Montelukast Sodium (Singulair) 10 mg HS PO Last administered on 12/01/16 22:11 ; Admin Dose 10 MG; Start 11/19/16 at 21:00 Multivitamins Therapeutic (Theragran) 1 tab DAILY PO Last administered on 09:22; Admin Dose 1 TAB; Start 11/20/16 at 09:00 Mupirocin (Bactroban) 1 applic BID TOP Last administered on 12/02/16 09:26; Admin Dose 1 APPLIC; Start 11/19/16 at 11:30 Nitrofurantoin Macrocrystals (Macrobid) 100 mg BID PO Last administered on 12/02 09:22; Admin Dose 100 MG; Start 11/20/16 at 11:00 Morphine Sulfate (Ms Contin (Er)) 15 mg Q8 PO Last administered on 12/02/16 15 :06; Admin Dose 15 MG; Start 11/20/16 at 14:00 Metoprolol Tartrate (Lopressor) 12.5 mg BID PO Last administered on 11/24/16 09 :44; Admin Dose 12.5 MG; Start 11/20/16 at 10:00; Status Future Hold Venlafaxine HCl (Effexor Xr) 225 mg DAILY PO Last administered on 12/02/16 09: 23; Admin Dose 225 MG; Start 11/24/16 at 09:00 Tolterodine Tartrate (Detrol La) 4 mg HS PO Last administered on 12/01/16 22:14 ; Admin Dose 4 MG; Start 11/27/16 at 21:00 Furosemide (Lasix) 20 mg DAILY PO Last administered on 12/02/16 09:23; Admin Dose 20 MG; Start 11/27/16 at 09:00 Levothyroxine Sodium (Synthroid) 125 mcg DAILY@06 PO Last administered on 06:51; Admin Dose 125 MCG; Start 11/28/16 at 06:00 Prenat Multivit/ [place]/Iron/Folic Ac () 1 tab DAILY PO Last administered on 12/02/16 09:23; Admin Dose 1 TAB; Start 11/28/16 at 13:30 Saccharomyces Boulardii (Florastor) 250 mg BID PO Last administered on 09:23; Admin Dose 250 MG; Start 11/28/16 at 21:00 Gentamicin Sulfate (Gentamicin 0.3% Oph Drop) 1 drop TID RIGHT EYE Last administered on 12/02/16 12:23; Admin Dose 1 DROP; Start 11/29/16 at 09:00 Hydrocortisone (Hydrocortisone 0.5% Cr) 1 applic BID TOP Last administered on 09:24; Admin Dose 1 APPLIC; Start 12/01/16 at 21:00 OLLIE YUEN MD Dec 02, 2016 16:02
[2016-12-02 20:00] VITALS: BP 80/51; RESP 20
[2016-12-02] MEDS: TOLTERODINE (SR) 4 MG CAP PO SCH (21:00)
[2016-12-02] MEDS: MONTELUKAST 10 MG TAB PO SCH (21:53)
[2016-12-02] MEDS: traZODone 50 MG TAB PO SCH (21:53)
[2016-12-03 02:00] VITALS: BP 93/60; RESP 20
[2016-12-03] MEDS: morphine (ER) 15 MG TAB PO SCH ×3 (06:09→21:41)
[2016-12-03] MEDS: LACTULOSE 30ML CUP PO SCH ×3 (06:10→21:41)
[2016-12-03] MEDS: PANTOPRAZOLE (EC) 40 MG TAB PO SCH (06:10)
[2016-12-03 07:25] VITALS: BP 90/65; RESP 20
[2016-12-03] MEDS: oxyCODONE 15 MG TAB PO PRN ×4 (07:52→23:28)
[2016-12-03] MEDS: VITAMIN B COMPLEX/VIT C CAP PO SCH (08:58)
[2016-12-03] MEDS: THIAMINE 100 MG TAB PO SCH (08:58)
[2016-12-03] MEDS: DOCUSATE SODIUM 100 MG CAP PO SCH ×2 (08:59→21:00)
[2016-12-03] MEDS: MULTIVITAMINS THERAPEUTIC TAB PO SCH (08:59)
[2016-12-03] MEDS: PRENATAL VITAMIN PO SCH (08:59)
[2016-12-03] MEDS: FOLIC ACID 1 MG TAB PO SCH (09:00)
[2016-12-03] MEDS: CREON (12k-38k-60k) 1 CAP PO SCH ×3 (09:00→16:56)
[2016-12-03] MEDS: FUROSEMIDE 20 MG TAB PO SCH (09:00)
[2016-12-03] MEDS: GABAPENTIN 300 MG CAP PO SCH ×2 (09:00→21:42)
[2016-12-03] MEDS: SACCHAROMYCES BOULARDII 250 MG CAP PO SCH ×2 (09:00→21:42)
[2016-12-03] MEDS: ASCORBIC ACID 500 MG TAB PO SCH (09:01)
[2016-12-03] MEDS: VENLAFAXINE (XR) 75 MG CAP PO SCH (09:01)
[2016-12-03] MEDS: POTASSIUM CHLORIDE 20 MEQ POWDER FOR ORAL SOLN PO SCH (09:02)
[2016-12-03] MEDS: NITROFURANTOIN (SR) 100 MG CAP PO SCH (09:02)
[2016-12-03] MEDS: GENTAMICIN 0.3% 5 ML OPH RIGHT EYE SCH ×3 (09:03→21:44)
[2016-12-03] MEDS: LORAZEPAM 0.5 MG TAB PO PRN ×3 (09:17→23:28)
[2016-12-03] MEDS: HYDROCORTISONE 0.5% 28.35 GM CR TOP SCH ×2 (09:17→21:00)
[2016-12-03] MEDS: CLOBETASOL 0.05% 15 GM CR TOP SCH ×2 (09:17→21:46)
[2016-12-03] MEDS: MUPIROCIN 2% 22 GM OINT TOP SCH ×2 (09:17→21:46)
[2016-12-03] MEDS: NYSTATIN 30 GM POWDER BTL TOP SCH (09:17)
[2016-12-03] MEDS: EUCERIN 113 GM CR TOP SCH ×3 (09:23→21:49)
--- NOTE | 2016-12-03 10:24 | PN ---
Date/Time of Note Date/Time of Note DATE: 12/03/16 TIME: : Assessment/Plan VTE Prophylaxis VTE Prophylaxis Intervention: SCD's Lines/Catheters IV Catheter Type (from Nrsg): Saline Lock Urinary Cath still in place: Yes Reason Cath still needed: urinary retention Assessment/Plan Chief Complaint/Hosp Course Assessment/Plan: 46-year-old female with a past medical history of chronic pain syndrome, hypothyroidism, gastroparesis 2/2 vagotomy, status post gastric bypass surgery in the past, pain and opioid dependence, depression, GERD, alcoholic liver disease, asthma presents with lower extremity redness and blistering, likely cellulitis, history of noncompliance as well. 1. Lower extremity erythema and swelling- patient has multiple admissions for this before, initial thought on admission was this was secondary to cellulitis. However, given low albumin, this may be from nutritional deficiency from inability to absorb nutrients from bypass surgery + decreased PO intake-->pt with severe protein calorie malnutrition, also B vitamin deficiency. -Continue Lasix PO BID -PT and OT consult follow-up their recommendations -Continue B complex vitamin, thiamine, multivitamin 2. Hyponatremia-resolved Asymptomatic, monitor for now BMP every morning 3. History of alcoholic liver disease-although no cirrhosis identified on last CT scan from August 2016 -Continue diuresis 5. Opioid dependency Pain management consult on the case -For now continue MS Contin 3 times daily only for now, oxy IR as needed, follow -up final pain management consult recommendations 6. History of positive tumor markers with elevated CA 19-9, CA 125. and CEA : Patient has in the past been evaluated by oncology. CT chest/abdomen/pelvis was negative for malignancy. Colonoscopy also without finding of malignancy at that time. -Per oncology on last admission in August 2016, no need to do additional workup and no need to order additional tumor markers, monitor for now 7. History of Gastric bypass. Continue proton pump inhibitor. 8. Chronic depression -Continue antidepressant 9. Eye irritation: Continue steroid and gentamicin eyedrops for now, monitor 10. Hypothyroidism: Her repeat thyroid panel yesterday showed lower free T4 levels and higher TSH levels compared to thyroid panel from 10 days ago. -Have again held levothyroxine for now 10. Dispo: Pt remains medically stable for transfer to SNF. Does not meet hospice criteria as pt without proof of ESLD. Pt needs to f/u with her handkerchief maker and bariatrician after discharge. Problems: Subjective 24 Hr Interval Summary Free Text/Dictation No acute events overnight, per nursing staff patient appears to be tolerating p.o. diet. Exam/Review of Systems Vital Signs Vitals Vital Signs Date Time Temp Pulse Resp B/P Pulse Ox O2 Delivery O2 Flow Rate FiO2 12/03/16 07:25 99.1 119 20 90/65 99 12/01/16 16:52 21 Intake and Output 12/02/16 12/02/16 12/03/16 15:00 23:00 07:00 Intake Total 600 ml 320 ml Output Total 350 ml Balance 600 ml -30 ml Exam Lying in bed, smiling, Nad supple lungs clear abd soft skin peeling unchanged trace LE edema Results Result Diagram: 12/02/16 1009 Medications Medications Current Medications Ondansetron HCl (Zofran Inj) 4 mg Q6H PRN IV NAUSEA AND/OR VOMITING; Start at 21:30 Docusate Sodium (Colace) 100 mg BID PO Last administered on 12/03/16 08:59; Admin Dose 100 MG; Start 11/11/16 at 09:00 Folic Acid (Folic Acid) 1 mg DAILY PO Last administered on 12/03/16 09:00; Admin Dose 1 MG; Start 11/11/16 at 09:00 Pantoprazole (Protonix Tab) 40 mg DAILY@06 PO Last administered on 12/03/16 06 :10; Admin Dose 40 MG; Start 11/11/16 at 06:00 Gabapentin (Neurontin) 300 mg BID PO Last administered on 12/03/16 09:00; Admin Dose 300 MG; Start 11/11/16 at 09:00 Trazodone HCl (Desyrel) 50 mg HS PO Last administered on 12/02/16 21:53; Admin Dose 50 MG; Start 11/11/16 at 21:00 Oxycodone HCl (Roxicodone) 15 mg Q4H PRN PO PAIN LEVEL 6-10 Last administered on 12/03/16 07:52; Admin Dose 15 MG; Start 11/11/16 at 18:00 Ascorbic Acid (Vitamin C) 500 mg DAILY PO Last administered on 12/03/16 09:01 ; Admin Dose 500 MG; Start 11/13/16 at 09:00 Clobetasol Propionate (Temovate 0.05% Cr) 1 applic BID TOP Last administered on 12/03/16 09:17; Admin Dose 1 APPLIC; Start 11/12/16 at 21:00 Diphenhydramine HCl (Benadryl) 25 mg Q6H PRN PO ITCHING Last administered on 00:34; Admin Dose 25 MG; Start 11/12/16 at 11:00 Hydroxyzine HCl (Atarax) 50 mg Q6H PRN PO ITCHING; Start 11/12/16 at 11:00 Potassium Chloride (Potassium Chloride Pwd/Soln) 10 meq DAILY PO Last administered on 12/03/16 09:02; Admin Dose 10 MEQ; Start 11/12/16 at 11:30 Thiamine HCl (Vitamin B1) 100 mg DAILY PO Last administered on 12/03/16 08:58 ; Admin Dose 100 MG; Start 11/13/16 at 09:00 Lactulose (Enulose) 20 gm Q8 PO Last administered on 12/03/16 06:10; Admin Dose 20 GM; Start 11/12/16 at 14:00 Lorazepam (Ativan) 0.5 mg Q6H PRN PO ANXIETY Last administered on 12/03/16 09: 17; Admin Dose 0.5 MG; Start 11/12/16 at 12:30 Eye Lubricant (Artificial Tears Oph) 2 drop Q6H PRN BOTH EYES DRY EYES Last administered on 12/01/16 22:16; Admin Dose 2 DROP; Start 11/12/16 at 16:00 Acetaminophen (Tylenol Tab) 325 mg Q4H PRN PO PAIN AND OR ELEVATED TEMP; Start 11/12/16 at 18:30 Vitamin B Complex/ Vitamin C (Berocca) 1 cap DAILY PO Last administered on 12/03 08:58; Admin Dose 1 CAP; Start 11/14/16 at 09:00 Nystatin (Nystatin Powder) 1 applic DAILY TOP Last administered on 12/03/16 09 :17; Admin Dose 1 APPLIC; Start 11/15/16 at 09:00 Multi-Ingredient Ointment (Eucerin Cream) 1 applic BID TOP Last administered on 12/03/16 09:23; Admin Dose 1 APPLIC; Start 11/17/16 at 08:22 Montelukast Sodium (Singulair) 10 mg HS PO Last administered on 12/02/16 21:53 ; Admin Dose 10 MG; Start 11/19/16 at 21:00 Multivitamins Therapeutic (Theragran) 1 tab DAILY PO Last administered on 08:59; Admin Dose 1 TAB; Start 11/20/16 at 09:00 Mupirocin (Bactroban) 1 applic BID TOP Last administered on 12/03/16 09:17; Admin Dose 1 APPLIC; Start 11/19/16 at 11:30 Morphine Sulfate (Ms Contin (Er)) 15 mg Q8 PO Last administered on 12/03/16 06 :09; Admin Dose 15 MG; Start 11/20/16 at 14:00 Metoprolol Tartrate (Lopressor) 12.5 mg BID PO Last administered on 11/24/16 09 :44; Admin Dose 12.5 MG; Start 11/20/16 at 10:00; Status Future Hold Venlafaxine HCl (Effexor Xr) 225 mg DAILY PO Last administered on 12/03/16 09: 01; Admin Dose 225 MG; Start 11/24/16 at 09:00 Tolterodine Tartrate (Detrol La) 4 mg HS PO Last administered on 12/01/16 22:14 ; Admin Dose 4 MG; Start 11/27/16 at 21:00 Furosemide (Lasix) 20 mg DAILY PO Last administered on 12/02/16 09:23; Admin Dose 20 MG; Start 11/27/16 at 09:00 Prenat Multivit/ [place]/Iron/Folic Ac () 1 tab DAILY PO Last administered on 12/03/16 08:59; Admin Dose 1 TAB; Start 11/28/16 at 13:30 Saccharomyces Boulardii (Florastor) 250 mg BID PO Last administered on 09:00; Admin Dose 250 MG; Start 11/28/16 at 21:00 Gentamicin Sulfate (Gentamicin 0.3% Oph Drop) 1 drop TID RIGHT EYE Last administered on 12/03/16 09:03; Admin Dose 1 DROP; Start 11/29/16 at 09:00 Hydrocortisone (Hydrocortisone 0.5% Cr) 1 applic BID TOP Last administered on 09:17; Admin Dose 1 APPLIC; Start 12/01/16 at 21:00 TOSIN ENCARNACION Dec 03, 2016 10:24
[2016-12-03 14:25] VITALS: BP 86/60; RESP 20
[2016-12-03 16:00] VITALS: BP 105/76; PULSE 108
[2016-12-03 16:55] VITALS: PULSE 98
[2016-12-03 19:24] VITALS: BP 99/67; RESP 20
[2016-12-03] MEDS: traZODone 50 MG TAB PO SCH (21:00)
[2016-12-03] MEDS: MONTELUKAST 10 MG TAB PO SCH (21:42)
[2016-12-03] MEDS: TOLTERODINE (SR) 4 MG CAP PO SCH (23:28)
[2016-12-04 02:00] VITALS: BP 83/53; RESP 20
[2016-12-04] MEDS: oxyCODONE 15 MG TAB PO PRN ×5 (04:09→23:07)
[2016-12-04 05:52] LABS: BASOPHILS % 0.2 % (0.0-2.0); EOSINOPHILS # 0.2 10^3/ul (0.0-0.5); EOSINOPHILS % 2.6 % (0.0-7.0); HEMATOCRIT 22.2 % (37.0-47.0); HEMOGLOBIN 7.2 g/dl (12.0-16.0); LYMPHOCYTES # 2.2 10^3/ul (0.8-2.9); LYMPHOCYTES % 37.8 % (15.0-51.0); MEAN CORPUSCULAR HEMOGLOBIN 32.4 pg (29.0-33.0); MEAN CORPUSCULAR HGB CONC 32.4 g/dl (32.0-37.0); MEAN PLATELET VOLUME 11.1 fl (7.4-10.4); MONOCYTE # 0.4 10^3/ul (0.3-0.9); MONOCYTES % 7.6 % (0.0-11.0); NEUTROPHILS % 51.6 % (39.0-77.0); PLATELET COUNT 183 10^3/UL (140-415); RED BLOOD COUNT 2.22 10^6/ul (4.20-5.40); RED CELL DISTRIBUTION WIDTH 19.4 % (11.5-14.5); WHITE BLOOD COUNT 5.8 10^3/ul (4.8-10.8)
[2016-12-04] MEDS: LACTULOSE 30ML CUP PO SCH ×3 (06:00→22:00)
[2016-12-04 06:11] LABS: CALCIUM 7.4 mg/dl (8.4-10.2); CREATININE 0.46 mg/dl (0.44-1.00); POTASSIUM 3.9 mmol/L (3.5-5.1)
[2016-12-04 06:17] LABS: MAGNESIUM 1.8 mg/dl (1.7-2.5); PHOSPHORUS 2.3 mg/dl (2.5-4.9)
[2016-12-04] MEDS: PANTOPRAZOLE (EC) 40 MG TAB PO SCH (06:18)
[2016-12-04] MEDS: morphine (ER) 15 MG TAB PO SCH ×3 (06:19→22:05)
[2016-12-04 07:20] VITALS: BP 84/56; RESP 18
[2016-12-04] MEDS: CLOBETASOL 0.05% 15 GM CR TOP SCH ×2 (09:00→22:06)
[2016-12-04] MEDS: DOCUSATE SODIUM 100 MG CAP PO SCH ×2 (09:00→21:00)
[2016-12-04 09:23] VITALS: BP 101/69; PULSE 102
[2016-12-04] MEDS: POTASSIUM CHLORIDE 20 MEQ POWDER FOR ORAL SOLN PO SCH (09:27)
[2016-12-04] MEDS: MULTIVITAMINS THERAPEUTIC TAB PO SCH (09:28)
[2016-12-04] MEDS: VENLAFAXINE (XR) 75 MG CAP PO SCH (09:28)
[2016-12-04] MEDS: ASCORBIC ACID 500 MG TAB PO SCH (09:28)
[2016-12-04] MEDS: THIAMINE 100 MG TAB PO SCH (09:28)
[2016-12-04] MEDS: FOLIC ACID 1 MG TAB PO SCH (09:28)
[2016-12-04] MEDS: CREON (12k-38k-60k) 1 CAP PO SCH ×3 (09:29→18:24)
[2016-12-04] MEDS: PRENATAL VITAMIN PO SCH (09:29)
[2016-12-04] MEDS: VITAMIN B COMPLEX/VIT C CAP PO SCH (09:29)
[2016-12-04] MEDS: GABAPENTIN 300 MG CAP PO SCH ×2 (09:29→22:04)
[2016-12-04] MEDS: SACCHAROMYCES BOULARDII 250 MG CAP PO SCH ×2 (09:29→22:04)
[2016-12-04] MEDS: HYDROCORTISONE 0.5% 28.35 GM CR TOP SCH ×2 (09:30→22:06)
[2016-12-04] MEDS: MUPIROCIN 2% 22 GM OINT TOP SCH (09:30)
[2016-12-04] MEDS: GENTAMICIN 0.3% 5 ML OPH RIGHT EYE SCH ×3 (09:30→22:07)
[2016-12-04] MEDS: NYSTATIN 30 GM POWDER BTL TOP SCH (09:31)
[2016-12-04] MEDS: FUROSEMIDE 20 MG TAB PO SCH (09:42)
[2016-12-04] MEDS: EUCERIN 113 GM CR TOP SCH ×2 (09:43→22:07)
[2016-12-04] MEDS: LORAZEPAM 0.5 MG TAB PO PRN ×2 (10:48→23:07)
--- NOTE | 2016-12-04 10:59 | PN ---
Date/Time of Note Date/Time of Note DATE: 12/04/16 TIME: 10:55 Assessment/Plan VTE Prophylaxis VTE Prophylaxis Intervention: SCD's Lines/Catheters IV Catheter Type (from Nrsg): Saline Lock Urinary Cath still in place: Yes Reason Cath still needed: urinary retention Assessment/Plan Chief Complaint/Hosp Course Assessment/Plan: 46-year-old female with a past medical history of chronic pain syndrome, hypothyroidism, gastroparesis 2/2 vagotomy, status post gastric bypass surgery in the past, pain and opioid dependence, depression, GERD, alcoholic liver disease, asthma presents with lower extremity redness and blistering, likely cellulitis, history of noncompliance as well. 1. Lower extremity erythema and swelling- patient has multiple admissions for this before, initial thought on admission was this was secondary to cellulitis. However, given low albumin, this may be from nutritional deficiency from inability to absorb nutrients from bypass surgery + decreased PO intake-->pt with severe protein calorie malnutrition, also B vitamin deficiency. -Continue Lasix PO BID -PT and OT consult follow-up their recommendations -Continue B complex vitamin, thiamine, multivitamin 2. Hyponatremia-resolved Asymptomatic, monitor for now BMP every morning 3. History of alcoholic liver disease-although no cirrhosis identified on last CT scan from August 2016 -Continue diuresis 5. Opioid dependency Pain management consult on the case -For now continue MS Contin 3 times daily only for now, oxy IR as needed, follow -up final pain management consult recommendations 6. History of positive tumor markers with elevated CA 19-9, CA 125. and CEA : Patient has in the past been evaluated by oncology. CT chest/abdomen/pelvis was negative for malignancy. Colonoscopy also without finding of malignancy at that time. -Per oncology on last admission in August 2016, no need to do additional workup and no need to order additional tumor markers, monitor for now 7. History of Gastric bypass. Continue proton pump inhibitor. 8. Chronic depression -Continue antidepressant 9. Eye irritation: Continue steroid and gentamicin eyedrops for now, monitor 10. Hypothyroidism: Her repeat thyroid panel 2 days ago showed lower free T4 levels and higher TSH levels compared to thyroid panel from 11 days ago. -Have again held levothyroxine for now, monitor heart rate 10. Dispo: Pt remains medically stable for transfer to SNF. Does not meet hospice criteria as pt without proof of ESLD. Pt needs to f/u with her scholarship counselor and bariatrician after discharge. However will still try to get hospice reevaluation since the repeat MRSA screen is negative. Problems: Subjective 24 Hr Interval Summary Free Text/Dictation No acute events overnight. Exam/Review of Systems Vital Signs Vitals Vital Signs Date Time Temp Pulse Resp B/P Pulse Ox O2 Delivery O2 Flow Rate FiO2 12/04/16 09:23 102 101/69 12/04/16 07:20 97.9 18 98 12/01/16 16:52 21 Intake and Output 12/03/16 12/03/16 12/04/16 15:00 23:00 07:00 Intake Total 1140 ml 720 ml Output Total 700 ml 300 ml Balance 440 ml 420 ml Exam Lying in bed, no acute distress supple lungs clear abd soft skin peeling unchanged trace LE edema Results Result Diagram: 12/04/16 0509 12/04/16 0509 Results 24 hrs Laboratory Tests Test 12/04/16 05:09 White Blood Count 5.8 # Red Blood Count 2.22 L Hemoglobin 7.2 L Hematocrit 22.2 L Mean Corpuscular Volume 100.0 Mean Corpuscular Hemoglobin 32.4 Mean Corpuscular Hemoglobin Concent 32.4 Red Cell Distribution Width 19.4 H Platelet Count 183 Mean Platelet Volume 11.1 H Neutrophils % 51.6 Lymphocytes % 37.8 Monocytes % 7.6 Eosinophils % 2.6 Basophils % 0.2 Nucleated Red Blood Cells % 0.0 Neutrophils # (Manual) 3.0 Lymphocytes # 2.2 Monocytes # 0.4 Eosinophils # 0.2 Basophils # 0.0 Nucleated Red Blood Cells # 0.0 Sodium Level 134 L Potassium Level 3.9 Chloride Level 105 Carbon Dioxide Level 28 Anion Gap 5 L Blood Urea Nitrogen 3 L Creatinine 0.46 Glucose Level 65 #L Calcium Level 7.4 L Phosphorus Level 2.3 L Magnesium Level 1.8 Medications Medications Current Medications Ondansetron HCl (Zofran Inj) 4 mg Q6H PRN IV NAUSEA AND/OR VOMITING; Start at 21:30 Docusate Sodium (Colace) 100 mg BID PO Last administered on 12/03/16 08:59; Admin Dose 100 MG; Start 11/11/16 at 09:00 Folic Acid (Folic Acid) 1 mg DAILY PO Last administered on 12/04/16 09:28; Admin Dose 1 MG; Start 11/11/16 at 09:00 Pantoprazole (Protonix Tab) 40 mg DAILY@06 PO Last administered on 12/04/16 06 :18; Admin Dose 40 MG; Start 11/11/16 at 06:00 Gabapentin (Neurontin) 300 mg BID PO Last administered on 12/04/16 09:29; Admin Dose 300 MG; Start 11/11/16 at 09:00 Trazodone HCl (Desyrel) 50 mg HS PO Last administered on 12/02/16 21:53; Admin Dose 50 MG; Start 11/11/16 at 21:00 Oxycodone HCl (Roxicodone) 15 mg Q4H PRN PO PAIN LEVEL 6-10 Last administered on 12/04/16 09:41; Admin Dose 15 MG; Start 11/11/16 at 18:00 Ascorbic Acid (Vitamin C) 500 mg DAILY PO Last administered on 12/04/16 09:28 ; Admin Dose 500 MG; Start 11/13/16 at 09:00 Clobetasol Propionate (Temovate 0.05% Cr) 1 applic BID TOP Last administered on 12/03/16 21:46; Admin Dose 1 APPLIC; Start 11/12/16 at 21:00 Diphenhydramine HCl (Benadryl) 25 mg Q6H PRN PO ITCHING Last administered on 00:34; Admin Dose 25 MG; Start 11/12/16 at 11:00 Hydroxyzine HCl (Atarax) 50 mg Q6H PRN PO ITCHING; Start 11/12/16 at 11:00 Potassium Chloride (Potassium Chloride Pwd/Soln) 10 meq DAILY PO Last administered on 12/04/16 09:27; Admin Dose 10 MEQ; Start 11/12/16 at 11:30 Thiamine HCl (Vitamin B1) 100 mg DAILY PO Last administered on 12/04/16 09:28 ; Admin Dose 100 MG; Start 11/13/16 at 09:00 Lactulose (Enulose) 20 gm Q8 PO Last administered on 12/03/16 13:11; Admin Dose 20 GM; Start 11/12/16 at 14:00 Lorazepam (Ativan) 0.5 mg Q6H PRN PO ANXIETY Last administered on 12/04/16 10: 48; Admin Dose 0.5 MG; Start 11/12/16 at 12:30 Eye Lubricant (Artificial Tears Oph) 2 drop Q6H PRN BOTH EYES DRY EYES Last administered on 12/01/16 22:16; Admin Dose 2 DROP; Start 11/12/16 at 16:00 Acetaminophen (Tylenol Tab) 325 mg Q4H PRN PO PAIN AND OR ELEVATED TEMP; Start 11/12/16 at 18:30 Vitamin B Complex/ Vitamin C (Berocca) 1 cap DAILY PO Last administered on 12/04 09:29; Admin Dose 1 CAP; Start 11/14/16 at 09:00 Nystatin (Nystatin Powder) 1 applic DAILY TOP Last administered on 12/04/16 09 :31; Admin Dose 1 APPLIC; Start 11/15/16 at 09:00 Multi-Ingredient Ointment (Eucerin Cream) 1 applic BID TOP Last administered on 12/04/16 09:43; Admin Dose 1 APPLIC; Start 11/17/16 at 08:22 Montelukast Sodium (Singulair) 10 mg HS PO Last administered on 12/03/16 21:42 ; Admin Dose 10 MG; Start 11/19/16 at 21:00 Multivitamins Therapeutic (Theragran) 1 tab DAILY PO Last administered on 09:28; Admin Dose 1 TAB; Start 11/20/16 at 09:00 Mupirocin (Bactroban) 1 applic BID TOP Last administered on 12/04/16 09:30; Admin Dose 1 APPLIC; Start 11/19/16 at 11:30 Morphine Sulfate (Ms Contin (Er)) 15 mg Q8 PO Last administered on 12/04/16 06 :19; Admin Dose 15 MG; Start 11/20/16 at 14:00 Metoprolol Tartrate (Lopressor) 12.5 mg BID PO Last administered on 11/24/16 09 :44; Admin Dose 12.5 MG; Start 11/20/16 at 10:00; Status Future Hold Venlafaxine HCl (Effexor Xr) 225 mg DAILY PO Last administered on 12/04/16 09: 28; Admin Dose 225 MG; Start 11/24/16 at 09:00 Tolterodine Tartrate (Detrol La) 4 mg HS PO Last administered on 12/03/16 23: 28; Admin Dose 4 MG; Start 11/27/16 at 21:00 Furosemide (Lasix) 20 mg DAILY PO Last administered on 12/04/16 09:42; Admin Dose 20 MG; Start 11/27/16 at 09:00 Prenat Multivit/ [place]/Iron/Folic Ac () 1 tab DAILY PO Last administered on 12/04/16 09:29; Admin Dose 1 TAB; Start 11/28/16 at 13:30 Saccharomyces Boulardii (Florastor) 250 mg BID PO Last administered on 09:29; Admin Dose 250 MG; Start 11/28/16 at 21:00 Gentamicin Sulfate (Gentamicin 0.3% Oph Drop) 1 drop TID RIGHT EYE Last administered on 12/04/16 09:30; Admin Dose 1 DROP; Start 11/29/16 at 09:00 Hydrocortisone 1 applic 1 applic BID TOP Last administered on 12/04/16 09:30; Admin Dose 1 APPLIC; Start 12/01/16 at 21:00 Potassium Phosphate/Sodium Chloride (K Phos (Meq)/NS) 254.5455 ml @ 63.636 m... ONCE ONCE IVPB ; Start 12/04/16 at 11:00; Stop 12/04/16 at 14:59; Status TOSIN CABAN Dec 04, 2016 10:59
[2016-12-04] MEDS ORDERED: POTASSIUM PHOSPHATE 20 MEQ in SOD CHLORIDE 0.9% 250 ML IVPB SCH (12:00)
[2016-12-04 12:27] LABS: HEMATOCRIT 26.2 % (37.0-47.0); HEMOGLOBIN 8.3 g/dl (12.0-16.0)
[2016-12-04 13:04] VITALS: BP 90/59; RESP 20
[2016-12-04 17:20] LABS: ADD UMIC YES; UR ASCORBIC ACID 20 mg/dL (NEGATIVE); UR BILIRUBIN (Dip) NEGATIVE (NEGATIVE); UR BLOOD (Dip) NEGATIVE (NEGATIVE); UR CLARITY CLEAR (CLEAR); UR COLOR YELLOW (YELLOW); UR GLUCOSE (Dip) NEGATIVE (NEGATIVE); UR KETONES (Dip) NEGATIVE (NEGATIVE); UR LEUKOCYTE ESTERASE (Dip) TRACE Leu/ul (NEGATIVE); UR NITRITE (Dip) NEGATIVE (NEGATIVE); UR RBC 1 /HPF (0-5); UR SPECIFIC GRAVITY (Dip) 1.006 (1.003-1.030); UR TOTAL PROTEIN (Dip) NEGATIVE (NEGATIVE); UR UROBILINOGEN (Dip) NEGATIVE (NEGATIVE)
[2016-12-04 18:26] VITALS: BP 94/63; PULSE 106
[2016-12-04 19:23] VITALS: BP 99/64; RESP 20
[2016-12-04] MEDS: traZODone 50 MG TAB PO SCH (21:00)
[2016-12-04] MEDS: TOLTERODINE (SR) 4 MG CAP PO SCH (22:03)
[2016-12-04] MEDS: MONTELUKAST 10 MG TAB PO SCH (22:04)
[2016-12-05 02:00] VITALS: BP 101/65; RESP 20
[2016-12-05] MEDS: LACTULOSE 30ML CUP PO SCH ×2 (05:37→13:03)
[2016-12-05] MEDS: PANTOPRAZOLE (EC) 40 MG TAB PO SCH (05:45)
[2016-12-05] MEDS: morphine (ER) 15 MG TAB PO SCH ×2 (05:45→13:04)
[2016-12-05 05:57] LABS: EOSINOPHILS % 0.4 % (0.0-7.0); HEMATOCRIT 26.5 % (37.0-47.0); HEMOGLOBIN 8.3 g/dl (12.0-16.0); LYMPHOCYTES # 2.4 10^3/ul (0.8-2.9); LYMPHOCYTES % 42.3 % (15.0-51.0); MEAN CORPUSCULAR HGB CONC 31.3 g/dl (32.0-37.0); MEAN CORPUSCULAR VOLUME 98.9 fl (82.0-101.0); MEAN PLATELET VOLUME 11.4 fl (7.4-10.4); MONOCYTE # 0.3 10^3/ul (0.3-0.9); MONOCYTES % 5.9 % (0.0-11.0); NEUTROPHILS % 50.9 % (39.0-77.0); PLATELET COUNT 173 10^3/UL (140-415); RED BLOOD COUNT 2.68 10^6/ul (4.20-5.40); RED CELL DISTRIBUTION WIDTH 19.7 % (11.5-14.5); WHITE BLOOD COUNT 5.6 10^3/ul (4.8-10.8)
[2016-12-05 06:42] LABS: CALCIUM 7.8 mg/dl (8.4-10.2); CREATININE 0.54 mg/dl (0.44-1.00); POTASSIUM 4.3 mmol/L (3.5-5.1)
[2016-12-05 07:34] VITALS: BP 96/62; RESP 16
[2016-12-05] MEDS: DOCUSATE SODIUM 100 MG CAP PO SCH (09:00)
[2016-12-05] MEDS: SACCHAROMYCES BOULARDII 250 MG CAP PO SCH (09:06)
[2016-12-05] MEDS: VENLAFAXINE (XR) 75 MG CAP PO SCH (09:06)
[2016-12-05] MEDS: POTASSIUM CHLORIDE 20 MEQ POWDER FOR ORAL SOLN PO SCH (09:06)
[2016-12-05] MEDS: THIAMINE 100 MG TAB PO SCH (09:06)
[2016-12-05] MEDS: MULTIVITAMINS THERAPEUTIC TAB PO SCH (09:07)
[2016-12-05] MEDS: PRENATAL VITAMIN PO SCH (09:07)
[2016-12-05] MEDS: CREON (12k-38k-60k) 1 CAP PO SCH ×2 (09:07→13:03)
[2016-12-05] MEDS: GABAPENTIN 300 MG CAP PO SCH (09:07)
[2016-12-05] MEDS: FOLIC ACID 1 MG TAB PO SCH (09:07)
[2016-12-05] MEDS: VITAMIN B COMPLEX/VIT C CAP PO SCH (09:07)
[2016-12-05] MEDS: ASCORBIC ACID 500 MG TAB PO SCH (09:07)
[2016-12-05] MEDS: EUCERIN 113 GM CR TOP SCH (09:08)
[2016-12-05] MEDS: GENTAMICIN 0.3% 5 ML OPH RIGHT EYE SCH ×2 (09:08→13:03)
[2016-12-05] MEDS: HYDROCORTISONE 0.5% 28.35 GM CR TOP SCH (09:09)
[2016-12-05] MEDS: NYSTATIN 30 GM POWDER BTL TOP SCH (09:09)
[2016-12-05] MEDS: CLOBETASOL 0.05% 15 GM CR TOP SCH (09:09)
[2016-12-05] MEDS: LORAZEPAM 0.5 MG TAB PO PRN (09:17)
[2016-12-05] MEDS: oxyCODONE 15 MG TAB PO PRN ×2 (09:17→14:55)
[2016-12-05] MEDS: FUROSEMIDE 20 MG TAB PO SCH (09:17)
--- NOTE | 2016-12-05 09:40 | PDOCDIS ---
Discharge Instructions CONDITION Patient Condition: Stable HOME CARE INSTRUCTIONS: Special Diet: Regular Diet ACTIVITY: Activity Restrictions: Rest between Activity Avoid heavy lifting FOLLOW UP/APPOINTMENTS Follow-up Plan Please take your medications as prescribed, please follow-up with her primary care doctor in the next 1 week. TOSIN ENCARNAICON Dec 05, 2016 09:40
[2016-12-05] MEDS ORDERED: MORP15TA3 PO (09:51)
[2016-12-05] MEDS ORDERED: TEM15CR5 TOP (09:51)
[2016-12-05] MEDS ORDERED: HYDR28.340 TOP (09:51)
[2016-12-05] MEDS ORDERED: VITBC PO (09:51)
[2016-12-05] MEDS ORDERED: VENL75CA89 PO (09:51)
[2016-12-05] MEDS ORDERED: MONT10TA24 PO (09:51)
[2016-12-05] MEDS ORDERED: MULTI PO (09:51)
[2016-12-05] MEDS ORDERED: LIPA1CAP4 PO (09:51)
[2016-12-05] MEDS ORDERED: OXYC15TA PO (09:51)
[2016-12-05] MEDS ORDERED: PANT40TA4 PO (09:51)
[2016-12-05] MEDS ORDERED: LACT20SO12 PO (09:51)
[2016-12-05] MEDS ORDERED: POTA20PA23 PO (09:51)
[2016-12-05] MEDS ORDERED: POLY15DR11 BOTH EYES (09:51)
[2016-12-05] MEDS ORDERED: BEN25 PO (09:51)
[2016-12-05] MEDS ORDERED: GABA300C16 PO (09:51)
[2016-12-05] MEDS ORDERED: METO-448 PO (09:51)
[2016-12-05] MEDS ORDERED: TRAZ50TA18 PO (09:51)
[2016-12-05] MEDS ORDERED: LAS20 PO (09:51)
[2016-12-05] MEDS ORDERED: ASC500 PO (09:51)
[2016-12-05] MEDS ORDERED: FOLI-49 PO (09:51)
[2016-12-05] MEDS ORDERED: TOLT4CAP13 PO (09:51)
[2016-12-05] MEDS ORDERED: HYDR-842 PO (09:51)
[2016-12-05] MEDS ORDERED: ZINC220T PO (09:51)
[2016-12-05] MEDS ORDERED: LORA-441 PO (09:51)
[2016-12-05] MEDS ORDERED: Saccharomyces Boulardii PO (09:51)
[2016-12-05] MEDS ORDERED: Thiamine PO (09:51)
--- NOTE | 2016-12-05 10:06 | DS ---
Date/Time of Note Date/Time of Note DATE: 12/05/16 TIME: 09:56 Discharge Summary Admission/Discharge Info Admit Date/Time Nov 10, 2016 at 19:31 Discharge Date/Time Discharge Diagnosis 1. Lower extremity erythema and swelling- patient has multiple admissions for this before, initial thought on admission was this was secondary to cellulitis. However, given low albumin, this may be from nutritional deficiency from inability to absorb nutrients from bypass surgery + decreased PO intake-->pt with severe protein calorie malnutrition, also B vitamin deficiency. -Continue Lasix PO BID -PT and OT consult follow-up their recommendations -Continue B complex vitamin, thiamine, multivitamin 2. Hyponatremia-resolved Asymptomatic, monitor for now BMP every morning 3. History of alcoholic liver disease-although no cirrhosis identified on last CT scan from August 2016 -Continue low-dose diuresis 5. Opioid dependency: Pain management consult on the case -For now continue MS Contin 3 times daily only for now, oxy IR as needed, follow -up final pain management consult recommendations 6. History of positive tumor markers with elevated CA 19-9, CA 125. and CEA : Patient has in the past been evaluated by oncology. CT chest/abdomen/pelvis was negative for malignancy. Colonoscopy also without finding of malignancy at that time. -Per oncology on last admission in August 2016, no need to do additional workup and no need to order additional tumor markers, monitor for now 7. History of Gastric bypass. Continue proton pump inhibitor. 8. Chronic depression -Continue antidepressant 9. Eye irritation: Continue rewetting drops as needed 10. Hypothyroidism: Recommend holding thyroid medications for 1 week then restarting at that time given her residents borderline tachycardia Patient Condition: Stable Hospital Course 46-year-old female with a past medical history of chronic pain syndrome, hypothyroidism, gastroparesis 2/2 vagotomy, status post gastric bypass surgery in the past, pain and opioid dependence, depression, GERD, alcoholic liver disease, asthma presents with lower extremity redness and blistering, likely cellulitis, history of noncompliance as well. Patient initially presented to an outside hospital complaining of lower extremity swelling, redness, headache and shortness of breath. She was transferred here because of insurance reasons. She recently ran out of her opioid medication and has been feeling weak. At the outside hospital, head CT was done and was negative for acute processes. Labs on this admission showed a sodium of 129 and lactate of 3. Regarding her lower extremity erythema and swelling, the initial thought on admission was this was secondary to cellulitis. However, given low albumin, this actually may be from nutritional deficiency from inability to absorb nutrients from her prior history of gastric bypass surgery + decreased PO intake. Again, pt was found with severe protein calorie malnutrition, also B vitamin deficiency. Patient was continued on Lasix PO, and she was also placed on B complex vitamin , as well as thiamine, multivitamin medications, and at one point did receive Megace for a few days for appetite stimulant. Her nutrition status improved during this hospital stay. Her lower extremity and upper extremity erythema responded this admission to steroid and antibiotic medicine treatments. He was treated for MRSA positivity of the nares with Bactroban, and repeat test after 10 days of treatment showed negative MRSA of the nares. Initially on this admission there was thought that patient may qualify for hospice, however given a lack of a terminal diagnosis, she does not meet hospice criteria as pt without proof of ESLD. Pt needs to f/u with her registered nurse behavioral health and bariatrician after discharge. Patient is well known to our service and has been admitted here to [facility] multiple times past few months for the same general issues of lower extremity redness and swelling and history of noncompliance with medications in the past, prior history of opioid dependence in the past as well. In the past, she has had positive tumor markers for which she had a malignancy workup with negative CT chest/abdomen/pelvis, as this was confirmed by hematology oncology consultation, and no further workup is required from their perspective.. She also had a colonoscopy with no findings of malignancy. She is strongly recommended to follow-up with her primary care doctor, adhere to her medications strictly. See below for full list of discharge medications. Home Meds Active Scripts Lactulose* (Cephulac*) 20 Gm/30 Ml Soln, 20 GM PO Q8, #1 BOTTLE 4 Refills Prov:SANDY ENCARNACIONP S. 12/05/16 Vitamin B Complex/Vit C (Total B with C) 1 Each Tablet, 1 CAP PO DAILY, #30 TAB 3 Refills Prov:RACHRISTINE MOFFETTEEP S. 12/05/16 Folic Acid* (Folic Acid*) 1 Mg Tablet, 1 MG PO DAILY, #30 TAB 2 Refills Prov:RACHRISTINE MOFFETTEEP S. 12/05/16 [Thiamine] 100 MG TAB No Conflict Check, 100 MG PO DAILY, #30 3 Refills Prov:TOSIN ENCARNACION S. 12/05/16 Multivitamins* (Theragran*) 1 Tab Tab, 1 TAB PO DAILY, #30 TAB 2 Refills Prov:TOSIN ENCARNACION S. 12/05/16 Ascorbic Acid (Vitamin C) 500 Mg Tab, 500 MG PO DAILY, #30 TAB 2 Refills Prov:TOSIN ENCARNACION S. 12/05/16 Tolterodine Tartrate* (Tolterodine Tartrate* ER) 4 Mg Cap.er.24h, 4 MG PO HS, # 30 CAP 2 Refills Prov:TOSIN ENCARNACION S. 12/05/16 Hydrocortisone* Topical (Hydrocortisone* Topical) 0.5%-28.35 Gm Cream..g., 1 APPLIC TOP BID, #1 BOTTLE 2 Refills Prov:TOSIN ENCARNACION S. 12/05/16 Clobetasol Propionate* (Temovate*) 0.05%-15gm Cream..g., 1 APPLIC TOP BID, #1 BOTTLE 2 Refills Prov:TOSIN ENCARNACION S. 12/05/16 [Saccharomyces Boulardii] 250 MG CAP No Conflict Check, 250 MG PO BID, #60 2 Refills Prov:TOSIN ENCARNACION S. 12/05/16 Polyvinyl Alcohol* ([place] Tears*) 1.4% - 15 Ml Drops, 2 DROP BOTH EYES Q6H Y for DRY EYES, #1 BOTTLE 1 Refill Prov:TOSIN ENCARNACION S. 12/05/16 Kfmtnf-Toexrnuo-Benztmp* (Memo WHITE* 12,000) 12,000 L-38,000-60,000 Unit Capsule., 1 CAP PO WITH MEALS, #90 2 Refills Prov:TOSIN ENCARNACION S. 12/05/16 Potassium Chloride (Potassium Chloride) 20 Meq Packet, 10 MEQ PO DAILY, #30 PACKET 2 Refills Prov:TOSIN ENCARNACION S. 12/05/16 Venlafaxine Hcl* (Venlafaxine Hcl ER*) 75 Mg Cap.er.24h, 225 MG PO DAILY, #30 CAP 2 Refills Prov:TOSIN ENCARNACION S. 12/05/16 Trazodone Hcl* (Desyrel*) 50 Mg Tab, 50 MG PO HS, #30 TAB 3 Refills Prov:TOSIN ENCARNACION 12/05/16 Oxycodone Hcl* (IR) (Oxycodone Hcl*) 15 Mg Tablet, 15 MG PO Q4H Y for PAIN LEVEL 6-10, #30 TAB Prov:CHRISTINE ENCARNACION12/05/16 Morphine Sulfate (Morphine Sulfate ER) 15 Mg Tablet.er, 15 MG PO Q8, #30 TAB Prov:CHRISTINE ENCARNACION12/05/16 Lorazepam* (Ativan*) 0.5 Mg Tablet, 0.5 MG PO Q6H Y for ANXIETY, #30 TAB Prov:CHRISTINE ENCARNACION12/05/16 Gabapentin* (Gabapentin*) 300 Mg Capsule, 300 MG PO BID, #60 CAP 1 Refill Prov:CHRISTINE ENCARNACION12/05/16 Hydroxyzine Hcl* (Atarax*) 25 Mg Tab, 50 MG PO Q6H Y for ITCHING, #60 TAB Prov:CHRISTINE ENCARNACION12/05/16 Metoprolol Tartrate* (Lopressor*) 25 Mg Tab, 12.5 MG PO BID, #60 TAB 2 Refills Prov:SANDY ENCARNACION12/05/16 Diphenhydramine Hcl* (Benadryl*) 25 Mg Cap, 25 MG PO Q6H Y for ITCHING, #60 CAP Prov:SANDY ENCARNACION12/05/16 Pantoprazole* (Pantoprazole*) 40 Mg Tablet.dr, 40 MG PO DAILY@06 for 30 Days, # 30 2 Refills Prov:SANDY ENCARNACION12/05/16 Furosemide (Lasix) 20 Mg Tab, 20 MG PO DAILY for 30 Days, #30 TAB 3 Refills Prov:CHRISTINE ENCARNACION12/05/16 Zinc Sulfate* (Zinc Sulfate*) 220 Mg Tablet, 220 MG PO DAILY, #30 TAB 3 Refills Prov:CHRISTINE ENCARNACION12/05/16 Montelukast Sodium* (Montelukast Sodium*) 10 Mg Tablet, 10 MG PO HS for 30 Days , #30 TAB 3 Refills Prov:TOSIN ENCARNACION. 12/05/16 Reported Medications Ipratropium-Albuterol (Ipratropium-Albuterol) 0.5-3 Mg/3 Ml Ampul.neb, 3 ML INHALATION Q4 Y for SHORTNESS OF BREATH, #30 VIAL 01/27/16 Discontinued Reported Medications Tolterodine Tartrate* (Detrol LA*) 4 Mg Cap.sr.24h, 4 MG PO DAILY, #30 CAP 08/29/16 Thiamine* (Thiamine*) 100 Mg Tablet, 100 MG PO DAILY, TAB 01/27/16 Ascorbic Acid* (Vitamin C*) 500 Mg Capsule.sa, 500 MG PO DAILY, CAP 01/06/16 Discontinued Scripts Prednisone (Prednisone) 10 Mg Tab, 10 MG PO DAILY, #16 TAB Take 5 tablets tomorrow September 14, 2016 Take 4 tablets on September 15, 2016 Take 3 tablets on September 16, 2016 Take 2 tablets on September 17, 2016 Take 1 tablets on September 18, 2016 Take 1 tablet on September 19 2016 Then stop. Prov:DOMINICK MCKEON MD 09/13/16 Oxycodone Hcl* (Oxycontin*) 10 Mg Tab.sr.12h, 30 MG PO BID for 30 Days Prov:TRINIDAD GOODE 07/27/16 Multivitamins* (Theragran*) 1 Tab Tab, 1 TAB PO DAILY for 30 Days, TAB Prov:TRINIDAD GOODE 07/27/16 Potassium Chloride* (Potassium Chloride*) 20 Meq/15 Ml Liquid, 10 MEQ PO DAILY for 30 Days, ML Prov:TRINIDAD GOODE 07/27/16 Clobetasol Propionate* (Clobetasol Propionate*) 60 Gm Cream.gm., 1 APPLIC TOP BID, #1 TUB Prov:TRINIDAD GOODE 07/27/16 [Lactulose] 20 GM/30 ML SOLN No Conflict Check, 20 GM PO Q8 for 30 Days, 4 Refills Prov:TRINIDAD GOODE 07/27/16 Hydroxyzine Hcl* (Atarax*) 25 Mg Tab, 50 MG PO Q6 Y for ITCHING, #30 TAB 1 Refill Prov:TRINIDAD GOODE 07/27/16 Gabapentin* (Gabapentin*) 100 Mg Capsule, 100 MG PO BID for 30 Days, CAP 2 Refills Prov:TRINIDAD GOODE M. 07/27/16 Venlafaxine Hcl* (Venlafaxine Hcl*) 75 Mg Tablet, 150 MG PO DAILY for 30 Days, TAB Prov:CHENCHO BANUELOS V. BODY WIRER 12/30/15 Levothyroxine Sodium* (Levoxyl*) 175 Mcg Tablet, 175 MCG PO DAILY@06 for 30 Days , TAB Prov:CHENCHO BANUELOS V. BODY WIRER 12/30/15 Follow-up Plan Please take your medications as prescribed, please follow-up with her primary care doctor in the next 1 week. Primary Care Provider Jimenez Baeza Pending Labs Laboratory Tests Test 12/04/16 11:49 12/04/16 14:15 12/05/16 05:20 Hemoglobin 8.3g/dl (12.0-16.0) 8.3g/dl (12.0-16.0) Hematocrit 26.2% (37.0-47.0) 26.5% (37.0-47.0) Urine Color YELLOW (YELLOW) Urine Clarity CLEAR (CLEAR) Urine pH 7.0 (5.0-9.0) Urine Specific [place] 1.006 (1.003-1.030) Urine Ketones NEGATIVEmg/dL (NEGATIVE) Urine Nitrite NEGATIVEmg/dL (NEGATIVE) Urine Bilirubin NEGATIVEmg/dL (NEGATIVE) Urine Urobilinogen NEGATIVEmg/dL (NEGATIVE) Urine Leukocyte Esterase TRACELeu/ul (NEGATIVE) Urine Microscopic RBC 1/HPF (0-5) Urine Microscopic WBC 3/HPF (0-5) Urine Hemoglobin NEGATIVEmg/dL (NEGATIVE) Urine Glucose NEGATIVEmg/dL (NEGATIVE) Urine Total Protein NEGATIVEmg/dl (NEGATIVE) White Blood Count 5.610^3/ul (4.8-10.8) Red Blood Count 2.6810^6/ul (4.20-5.40) Mean Corpuscular Volume 98.9fl (82.0-101.0) Mean Corpuscular Hemoglobin 31.0pg (29.0-33.0) Mean Corpuscular Hemoglobin Concent 31.3g/dl (32.0-37.0) Red Cell Distribution Width 19.7% (11.5-14.5) Platelet Count 28610^3/UL (140-415) Mean Platelet Volume 11.4fl (7.4-10.4) Neutrophils % 50.9% (39.0-77.0) Lymphocytes % 42.3% (15.0-51.0) Monocytes % 5.9% (0.0-11.0) Eosinophils % 0.4% (0.0-7.0) Basophils % 0.0% (0.0-2.0) Nucleated Red Blood Cells % 0.0/100WBC (0.0-0.0) Neutrophils # (Manual) 2.810^3/ul (1.7-7.5) Lymphocytes # 2.410^3/ul (0.8-2.9) Monocytes # 0.310^3/ul (0.3-0.9) Eosinophils # 0.010^3/ul (0.0-0.5) Basophils # 0.010^3/ul (0.0-0.1) Nucleated Red Blood Cells # 0.010^3/ul (0.0-0.0) Sodium Level 134mmol/L (135-144) Potassium Level 4.3mmol/L (3.5-5.1) Chloride Level 104mmol/L (97-110) Carbon Dioxide Level 27mmol/L (21-31) Anion Gap 7 (8-16) Blood Urea Nitrogen 6mg/dl (7-20) Creatinine 0.54mg/dl (0.44-1.00) Glucose Level 66mg/dl (70-220) Calcium Level 7.8mg/dl (8.4-10.2) Microbiology Date/Time Source Procedure Growth Status 12/04/16 14:15 Clean Catch Urine Urine Culture - Preliminary Annalise Albicans Resulted TOSIN ENCARNACION Dec 05, 2016 10:06
[2016-12-05 14:00] VITALS: BP 90/55; RESP 18
--- NOTE | 2016-12-05 14:48 | PDOCDIS ---
Discharge Instructions DIAGNOSIS Discharge Diagnosis 1. Lower extremity erythema and swelling- patient has multiple admissions for this before, initial thought on admission was this was secondary to cellulitis. However, given low albumin, this may be from nutritional deficiency from inability to absorb nutrients from bypass surgery + decreased PO intake-->pt with severe protein calorie malnutrition, also B vitamin deficiency. -Continue Lasix PO BID -PT and OT consult follow-up their recommendations -Continue B complex vitamin, thiamine, multivitamin 2. Hyponatremia-resolved Asymptomatic, monitor for now BMP every morning 3. History of alcoholic liver disease-although no cirrhosis identified on last CT scan from August 2016 -Continue low-dose diuresis 5. Opioid dependency: Pain management consult on the case -For now continue MS Contin 3 times daily only for now, oxy IR as needed, follow -up final pain management consult recommendations 6. History of positive tumor markers with elevated CA 19-9, CA 125. and CEA : Patient has in the past been evaluated by oncology. CT chest/abdomen/pelvis was negative for malignancy. Colonoscopy also without finding of malignancy at that time. -Per oncology on last admission in August 2016, no need to do additional workup and no need to order additional tumor markers, monitor for now 7. History of Gastric bypass. Continue proton pump inhibitor. 8. Chronic depression -Continue antidepressant 9. Eye irritation: Continue rewetting drops as needed 10. Hypothyroidism: Recommend holding thyroid medications for 1 week then restarting at that time given her residents borderline tachycardia CONDITION Patient Condition: Stable HOME CARE INSTRUCTIONS: Special Diet: Regular Diet ACTIVITY: Activity Restrictions: Rest between Activity Avoid heavy lifting FOLLOW UP/APPOINTMENTS Follow-up Plan Please take your medications as prescribed, please follow-up with her primary care doctor in the next 1 week. TOSIN ENCARNACION Dec 05, 2016 14:48
[2016-12-05 18:00] VITALS: BP 100/60; PULSE 92
== END 2016-12-05 18:40 | disposition home or self-care (01) | DRG 843 ==
LOC: TEL 19:31 → MS2 11-13 15:50
PROVIDERS: ADMIT Internal Medicine; ATTEND Internal Medicine
DX: E88.09 Other disorders of plasma-protein metabolism, not elsewhere classified (principal); E43 Unspecified severe protein-calorie malnutrition; R64 Cachexia; K91.2 Postsurgical malabsorption, not elsewhere classified; L03.115 Cellulitis of right lower limb; E87.1 Hypo-osmolality and hyponatremia; K70.9 Alcoholic liver disease, unspecified; F11.20 Opioid dependence, uncomplicated; L03.116 Cellulitis of left lower limb; Z68.1 Body mass index [BMI] 19.9 or less, adult; K31.84 Gastroparesis; Z98.84 Bariatric surgery status; E53.9 Vitamin B deficiency, unspecified; F32.9 Major depressive disorder, single episode, unspecified; E03.9 Hypothyroidism, unspecified; G89.4 Chronic pain syndrome; R51 Headache; M54.2 Cervicalgia; Z76.5 Malingerer [conscious simulation]; Z22.322 Carrier or suspected carrier of Methicillin resistant Staphylococcus aureus; Z66 Do not resuscitate
CPT/HCPCS: 80048; 80053; 81001; 82040; 82140; 82150; 83690; 83735; 84100; 84134; 84425; 84436; 84439; 84443; 85014; 85018; 85025; 87081; 87086; 97003; 97110; 97116; 97162; 97166; 97530; 97535; J1940; J1644; J1956; J2920; J3475; J3480; J7040; J7050; J7512; P9047

== ENCOUNTER 2016-12-07 11:56 | Inpatient (IN) | payer MEDICAID, OTHER ==
[~2016-12-07] VITALS: Ht 162.6 cm; Wt 36.4 kg
[~2016-12-07 11:56] MED LIST changes: +ASC500 PO; -ASCO500C7 PO; -CLOB60CR2 TOP; +FOLI-49 PO; -GABA100C14 PO; +GABA300C16 PO; +HYDR28.340 TOP; +LACT20SO12 PO; -LEVO175T38 PO; +LIPA1CAP4 PO; +LORA-441 PO; -Lactulose PO; +METO-448 PO; +MORP15TA3 PO; -OXYC10TA63 PO; +OXYC15TA PO; +POLY15DR11 BOTH EYES; -POTA20LI5 PO; +POTA20PA23 PO; -PRED10TA PO; +Saccharomyces Boulardii PO; +TEM15CR5 TOP; -THIA100T10 PO; -TOLT4CAP PO; +TOLT4CAP13 PO; +TRAZ50TA18 PO; +Thiamine PO; +VENL75CA89 PO; -VENL75TA PO; +VITBC PO
[2016-12-07 11:58] VITALS: Ht 162.6 cm; Wt 36.4 kg
[2016-12-07] MEDS ORDERED: LEVOFLOXACIN 500MG/D5W (PMX) 100 ML IVPB STA (12:19)
[2016-12-07] MEDS ORDERED: VANCOMYCIN 1 GM (PMX) 250 ML IVPB ONE (12:30)
[2016-12-07 12:46] LABS: BASOPHILS % 0.2 % (0.0-2.0); EOSINOPHILS % 0.2 % (0.0-7.0); HEMATOCRIT 32.5 % (37.0-47.0); HEMOGLOBIN 10.4 g/dl (12.0-16.0); LYMPHOCYTES # 2.6 10^3/ul (0.8-2.9); LYMPHOCYTES % 48.2 % (15.0-51.0); MEAN CORPUSCULAR HEMOGLOBIN 31.2 pg (29.0-33.0); MEAN CORPUSCULAR VOLUME 97.6 fl (82.0-101.0); MEAN PLATELET VOLUME 11.2 fl (7.4-10.4); MONOCYTE # 0.2 10^3/ul (0.3-0.9); MONOCYTES % 3.7 % (0.0-11.0); NEUTROPHIL # 2.6 10^3/ul (1.6-7.5); NEUTROPHILS % 47.3 % (39.0-77.0); PLATELET COUNT 291 10^3/UL (140-415); RED BLOOD COUNT 3.33 10^6/ul (4.20-5.40); RED CELL DISTRIBUTION WIDTH 18.9 % (11.5-14.5); WHITE BLOOD COUNT 5.4 10^3/ul (4.8-10.8)
--- NOTE | 2016-12-07 12:50 | RADRPT ---
PROCEDURE: XR Chest. CLINICAL INDICATION: chest pain, sepsis TECHNIQUE: Single frontal view of the chest was obtained COMPARISON: 07/18/2016 , 09/03/2016 FINDINGS: The heart and mediastinum are within normal limits. There is a mild patchy left lower lobe interstitial infiltrate.. There is mild dextroscoliosis of the thoracic spine. There is no pleural effusion or pneumothorax. RPTAT: AA IMPRESSION: Mild patchy left lower lobe interstitial infiltrate. .Karthik Rod MD, MD Date Time Electronically viewed and signed by .Karthik Rod MD, MD on 12/07/2016 12:49 .S/
--- NOTE | 2016-12-07 12:50 | RADRPT ---
PROCEDURE: CT Brain without contrast. CLINICAL INDICATION: Headaches. TECHNIQUE: A CT of the brain was performed on multidetector high-resolution CT scanner utilizing a xial sections from the skull base through the vertex without contrast. One or more of the following dose reduction techniques were used: Automated exposure control, Adjustment of the mA and/or kV acc ording to patient size, and/or use of iterative reconstruction technique. DOSE: CTDI = 44 mGy and the DLP = 720 mGy-cm. COMPARISON: Brain MRI 07/26/2016 FINDINGS: No acute intracranial hemorrhage, significant mass effect or midline shift. The escoto-white different iation is grossly preserved. The ventricles are normal in size. Mild generalized volume loss. No significant opacification of the visualized paranasal sinuses or mastoids. IMPRESSION: No acute intracranial findings. RPTAT: AA .Caleb Turcios MD, MD Date Time Electronically viewed and signed by .Caleb Turcios MD, on 12/07/2016 12:49 .T/
[2016-12-07 13:04] LABS: ALANINE AMINOTRANSFERASE 40 IU/L (13-69); ALBUMIN 2.5 g/dl (3.3-4.9); ALBUMIN/GLOBULIN RATIO 0.69; ALKALINE PHOSPHATASE 168 IU/L (42-121); ANION GAP 12 (8-16); ASPARTATE AMINO TRANSFERASE 38 IU/L (15-46); BILIRUBIN,INDIRECT 0.7 mg/dl (0-1.1); BILIRUBIN,TOTAL 0.7 mg/dl (0.2-1.3); BLOOD UREA NITROGEN 7 mg/dl (7-20); CARBON DIOXIDE 28 mmol/L (21-31); CHLORIDE 103 mmol/L (97-110); GLUCOSE 93 mg/dl (70-220); POTASSIUM 4.2 mmol/L (3.5-5.1); SODIUM 139 mmol/L (135-144); TOTAL PROTEIN 6.1 g/dl (6.1-8.1)
[2016-12-07 13:18] LABS: TROPONIN-I < 0.012 ng/ml (0.00-0.12)
[2016-12-07 13:23] LABS: INR 1.23; PROTIME 15.6 Sec (12.2-14.2); PT RATIO 1.2
[2016-12-07 13:24] LABS: PARTIAL THROMBOPLASTIN TIME 36.5 Sec (25.0-35.0)
[2016-12-07] MEDS ORDERED: SODIUM CHLORIDE 0.9% 1L BAG IV* STA (14:00)
[2016-12-07] MEDS ORDERED: CHOL100062 PO (14:25)
[2016-12-07] MEDS ORDERED: DOCU-159 PO (14:29)
[2016-12-07] MEDS ORDERED: LEVO150T64 PO (14:30)
--- NOTE | 2016-12-07 15:28 | ERA ---
ER Documentation Chief Complaint Date/Time DATE: 12/07/16 TIME: 15:16 Chief Complaint BROUGHT IN VIA EMS DUE TO ALOC HPI This 46-year-old female found by her significant other on the floor in her hotel room awake. The patient is not a good historian whatsoever she will not talk to me or answer any questions. She is much older than stated age in bad physical shape she looks very cachectic. The patient will follow some basic commands but will not answer any questions. Apparently the patient's been admitted to this hospital multiple visits ROS All systems reviewed and are negative except as per history of present illness. Medications Home Meds Active Scripts Folic Acid* (Folic Acid*) 1 Mg Tablet, 1 MG PO DAILY, #30 TAB 2 Refills Prov:TOSIN ENCARNACION S. 12/05/16 Trazodone Hcl* (Desyrel*) 50 Mg Tab, 50 MG PO HS, #30 TAB 3 Refills Prov:TOSIN ENCARNACION S. 12/05/16 Montelukast Sodium* (Montelukast Sodium*) 10 Mg Tablet, 10 MG PO HS for 30 Days , #30 TAB 3 Refills Prov:TOSIN ENCARNACION S. 12/05/16 Reported Medications Levothyroxine Sodium* (Levoxyl*) 150 Mcg Tablet, 150 MCG PO BEFORE BREAKFAST, # 30 TAB 12/07/16 Docusate Sodium* (Docusate Sodium*) 100 Mg Capsule, 100 MG PO BID, #60 CAP 12/07/16 Cholecalciferol* (Vitamin D3*) 1,000 Unit Tablet, 1000 UNIT PO DAILY, TAB 12/07/16 Discontinued Reported Medications Ipratropium-Albuterol (Ipratropium-Albuterol) 0.5-3 Mg/3 Ml Ampul.neb, 3 ML INHALATION Q4 Y for SHORTNESS OF BREATH, #30 VIAL 01/27/16 Tolterodine Tartrate* (Detrol LA*) 4 Mg Cap.sr.24h, 4 MG PO DAILY, #30 CAP 08/29/16 Thiamine* (Thiamine*) 100 Mg Tablet, 100 MG PO DAILY, TAB 01/27/16 Ascorbic Acid* (Vitamin C*) 500 Mg Capsule.sa, 500 MG PO DAILY, CAP 01/06/16 Discontinued Scripts Lactulose* (Cephulac*) 20 Gm/30 Ml Soln, 20 GM PO Q8, #1 BOTTLE 4 Refills Prov:TOSIN ENCARNACION S. 12/05/16 Vitamin B Complex/Vit C (Total B with C) 1 Each Tablet, 1 CAP PO DAILY, #30 TAB 3 Refills Prov:TOSIN ENCARNACION . 12/05/16 [Thiamine] 100 MG TAB No Conflict Check, 100 MG PO DAILY, #30 3 Refills Prov:TOSIN ENCARNACION . 12/05/16 Multivitamins* (Theragran*) 1 Tab Tab, 1 TAB PO DAILY, #30 TAB 2 Refills Prov:TOSIN ENCARNACION . 12/05/16 Ascorbic Acid (Vitamin C) 500 Mg Tab, 500 MG PO DAILY, #30 TAB 2 Refills Prov:TOSIN ENCARNACION . 12/05/16 Tolterodine Tartrate* (Tolterodine Tartrate* ER) 4 Mg Cap.er.24h, 4 MG PO HS, # 30 CAP 2 Refills Prov:TOSIN ENCARNACION . 12/05/16 Hydrocortisone* Topical (Hydrocortisone* Topical) 0.5%-28.35 Gm Cream..g., 1 APPLIC TOP BID, #1 BOTTLE 2 Refills Prov:TOSIN ENCARNACION . 12/05/16 Clobetasol Propionate* (Temovate*) 0.05%-15gm Cream..g., 1 APPLIC TOP BID, #1 BOTTLE 2 Refills Prov:TOSIN ENCARNACION . 12/05/16 [Saccharomyces Boulardii] 250 MG CAP No Conflict Check, 250 MG PO BID, #60 2 Refills Prov:TOSIN ENCARNACION . 12/05/16 Polyvinyl Alcohol* (Akwa Tears*) 1.4% - 15 Ml Drops, 2 DROP BOTH EYES Q6H Y for DRY EYES, #1 BOTTLE 1 Refill Prov:TOSIN ENCARNACION12/05/16 Cisinv-Xtgfpuvd-Xdvuayn* (Memo WHITE* 12,000) 12,000 L-38,000-60,000 Unit Capsule.dr, 1 CAP PO WITH MEALS, #90 2 Refills Prov:TOSIN ENCARNACION. 12/05/16 Potassium Chloride (Potassium Chloride) 20 Meq Packet, 10 MEQ PO DAILY, #30 PACKET 2 Refills Prov:TOSIN ENCARNACION 12/05/16 Venlafaxine Hcl* (Venlafaxine Hcl ER*) 75 Mg Cap.er.24h, 225 MG PO DAILY, #30 CAP 2 Refills Prov:TOSIN ENCARNACION 12/05/16 Oxycodone Hcl* (IR) (Oxycodone Hcl*) 15 Mg Tablet, 15 MG PO Q4H Y for PAIN LEVEL 6-10, #30 TAB Prov:SANDY ENCARNACIONP 12/05/16 Morphine Sulfate (Morphine Sulfate ER) 15 Mg Tablet.er, 15 MG PO Q8, #30 TAB Prov:SANDY ENCARNACIONP 12/05/16 Lorazepam* (Ativan*) 0.5 Mg Tablet, 0.5 MG PO Q6H Y for ANXIETY, #30 TAB Prov:SANDY ENCARNACIONP 12/05/16 Gabapentin* (Gabapentin*) 300 Mg Capsule, 300 MG PO BID, #60 CAP 1 Refill Prov:SANDY ENCARNACIONP 12/05/16 Hydroxyzine Hcl* (Atarax*) 25 Mg Tab, 50 MG PO Q6H Y for ITCHING, #60 TAB Prov:SANDY ENCARNACIONP 12/05/16 Metoprolol Tartrate* (Lopressor*) 25 Mg Tab, 12.5 MG PO BID, #60 TAB 2 Refills Prov:SANDY ENCARNACIONP 12/05/16 Diphenhydramine Hcl* (Benadryl*) 25 Mg Cap, 25 MG PO Q6H Y for ITCHING, #60 CAP Prov:SANDY ENCARNACIONP 12/05/16 Pantoprazole* (Pantoprazole*) 40 Mg Tablet.dr, 40 MG PO DAILY@06 for 30 Days, # 30 2 Refills Prov:TOSIN ENCARNACION 12/05/16 Furosemide (Lasix) 20 Mg Tab, 20 MG PO DAILY for 30 Days, #30 TAB 3 Refills Prov:SANDY ENCARNACIONP 12/05/16 Zinc Sulfate* (Zinc Sulfate*) 220 Mg Tablet, 220 MG PO DAILY, #30 TAB 3 Refills Prov:TOSIN ENCARNACION Hiral 12/05/16 Prednisone (Prednisone) 10 Mg Tab, 10 MG PO DAILY, #16 TAB Take 5 tablets tomorrow September 14, 2016 Take 4 tablets on September 15, 2016 Take 3 tablets on September 16, 2016 Take 2 tablets on September 17, 2016 Take 1 tablets on September 18, 2016 Take 1 tablet on September 19 2016 Then stop. Prov:DOMINICK MCKEON MD 09/13/16 Oxycodone Hcl* (Oxycontin*) 10 Mg Tab.sr.12h, 30 MG PO BID for 30 Days Prov:PIEDAD GOODEAnna VeronaSindhu 07/27/16 Multivitamins* (Theragran*) 1 Tab Tab, 1 TAB PO DAILY for 30 Days, TAB Prov:PIEDAD GOODEAnna [place]. 07/27/16 Potassium Chloride* (Potassium Chloride*) 20 Meq/15 Ml Liquid, 10 MEQ PO DAILY for 30 Days, ML Prov:PIEDAD GOODEAnna . 07/27/16 Clobetasol Propionate* (Clobetasol Propionate*) 60 Gm Cream.gm., 1 APPLIC TOP BID, #1 TUB Prov:PIEDAD GOODEAnna Sindhu 07/27/16 [Lactulose] 20 GM/30 ML SOLN No Conflict Check, 20 GM PO Q8 for 30 Days, 4 Refills Prov:PIEDAD GOODEAnna VeronaSindhu 07/27/16 Hydroxyzine Hcl* (Atarax*) 25 Mg Tab, 50 MG PO Q6 Y for ITCHING, #30 TAB 1 Refill Prov:PIEDAD GOODEAnna VeronaSindhu 07/27/16 Gabapentin* (Gabapentin*) 100 Mg Capsule, 100 MG PO BID for 30 Days, CAP 2 Refills Prov:PIEDAD GOODEAnna Verona. 07/27/16 Venlafaxine Hcl* (Venlafaxine Hcl*) 75 Mg Tablet, 150 MG PO DAILY for 30 Days, TAB Prov:CHENCHO BANUELOS NP 12/30/15 Levothyroxine Sodium* (Levoxyl*) 175 Mcg Tablet, 175 MCG PO DAILY@06 for 30 Days , TAB Prov:CHENCHO BANUELOS NP 12/30/15 Allergies Allergies: Coded Allergies: Sulfa (Sulfonamide Antibiotics) (Verified Allergy, Intermediate, 12/07/16) prochlorperazine (Verified Allergy, Intermediate, 12/07/16) Penicillins (Verified Allergy, Unknown, 12/07/16) cefaclor (Verified Allergy, Unknown, 12/07/16) penicillin V (Verified Allergy, Unknown, 12/07/16) PMhx/Soc History of Surgery: Yes Anesthesia Reaction: No Hx Neurological Disorder: Yes (hypothyroid) Hx Respiratory Disorders: Yes (asthma) Hx Cardiac Disorders: Yes (heart problem) Hx Psychiatric Problems: No Hx Miscellaneous Medical Probl: Yes (alcohol dz, chronic pain syndrome, opioid dependency ) Hx Alcohol Use: No Hx Substance Use: Yes (OPIET ABUSE) Hx Tobacco Use: No Smoking Status: Unknown if ever smoked FmHx Family History: No coronary disease Physical Exam Vitals Vital Signs Date Time Temp Pulse Resp B/P Pulse Ox O2 Delivery O2 Flow Rate FiO2 12/07/16 11:58 98.5 104 18 98/68 96 Physical Exam Const: Well-developed, cachectic, smells like urine with urine soaked clothes, Head: Atraumatic, normocephalic, large scars to the forehead Eyes: Normal Conjunctiva, PERRLA, EOMI, normal sclera, no nystagmus ENT: Normal External Ears, Nose and Mouth, moist mucus membranes. Neck: Full range of motion. No meningismus, no lymphadenopathy. Resp: Clear to auscultation bilaterally, no wheezing, rhonchi, rales Cardio: Regular rate and rhythm, no murmurs, S1 S2 present Abd: Soft, non tender x 4, non distended. Normal bowel sounds, no guarding or rebound, no pulsitile abdominal masses or bruits Skin: No petechiae or rashes, no ecchymosis , no maculopapular rash Back: No midline or flank tenderness Ext: No cyanosis, or edema, FROM x 4, normal inspection, neurovascularly intact x 4 Neur: Awake and alert, STR 5/5 x 4, sensation intact x 4, no focal findings, cerebellum intact Psych: Normal Mood and Affect Result Diagram: 12/07/16 1220 12/07/16 1220 Results 24 hrs Laboratory Tests Test 12/07/16 12:20 White Blood Count 5.410^3/ul Red Blood Count 3.3310^6/ul Hemoglobin 10.4g/dl Hematocrit 32.5% Mean Corpuscular Volume 97.6fl Mean Corpuscular Hemoglobin 31.2pg Mean Corpuscular Hemoglobin Concent 32.0g/dl Red Cell Distribution Width 18.9% Platelet Count 10342^3/UL Mean Platelet Volume 11.2fl Neutrophils % 47.3% Lymphocytes % 48.2% Monocytes % 3.7% Eosinophils % 0.2% Basophils % 0.2% Nucleated Red Blood Cells % 0.0/100WBC Neutrophils # 2.610^3/ul Lymphocytes # 2.610^3/ul Monocytes # 0.210^3/ul Eosinophils # 0.010^3/ul Basophils # 0.010^3/ul Nucleated Red Blood Cells # 0.010^3/ul Prothrombin Time 15.6Sec Prothrombin Time Ratio 1.2 INR International Normalized Ratio 1.23 Activated Partial Thromboplast Time 36.5Sec Sodium Level 139mmol/L Potassium Level 4.2mmol/L Chloride Level 103mmol/L Carbon Dioxide Level 28mmol/L Anion Gap 12 Blood Urea Nitrogen 7mg/dl Creatinine 0.60mg/dl Glucose Level 93mg/dl Lactic Acid Level 3.2mmol/L Calcium Level 8.0mg/dl Total Bilirubin 0.7mg/dl Direct Bilirubin 0.00mg/dl Indirect Bilirubin 0.7mg/dl Aspartate Amino Transf (AST/SGOT) 38IU/L Alanine Aminotransferase (ALT/SGPT) 40IU/L Alkaline Phosphatase 168IU/L Troponin I < 0.012ng/ml Total Protein 6.1g/dl Albumin 2.5g/dl Globulin 3.60g/dl Albumin/Globulin Ratio 0.69 Current Medications Medications (Trade) Dose Ordered Sig/Kristy Route PRN Reason Start Time Stop Time Status Last Admin Dose Admin Vancomycin HCl 250 ml @ 125 mls/hr ONCE ONCE IVPB 12/07/16 12:30 12/07/16 14:29 DC 12/07/16 14:45 Levofloxacin/ Dextrose (Levaquin 500mg/ D5W 100 ml (Pmx)) 100 ml @ 100 mls/hr ONCE STAT IVPB 12/07/16 12:19 12/07/16 13:18 DC 12/07/16 13:49 Sodium Chloride (NS) 1,130 ml BOLUS OVER 2 HOURS STAT IV* 12/07/16 14:00 12/07/16 14:01 DC 12/07/16 14:50 Procedures/MDM PROCEDURE: CT Brain without contrast. CLINICAL INDICATION: Headaches. TECHNIQUE: A CT of the brain was performed on multidetector high-resolution CT scanner utilizing axial sections from the skull base through the vertex without contrast. One or more of the following dose reduction techniques were used: Automated exposure control, Adjustment of the mA and/or kV according to patient size, and/or use of iterative reconstruction technique. DOSE: CTDI = 44 mGy and the DLP = 720 mGy-cm. COMPARISON: Brain MRI 07/26/2016 FINDINGS: No acute intracranial hemorrhage, significant mass effect or midline shift. The escoto-white differentiation is grossly preserved. The ventricles are normal in size. Mild generalized volume loss. No significant opacification of the visualized paranasal sinuses or mastoids. IMPRESSION: No acute intracranial findings. RPTAT: AA .Caleb Turcios MD, Date Time Electronically viewed and signed by .Caleb Turcios MD, on 12/07/2016 12:49 .T/ CC: HARJINDER SAWYER DO EKG: Rate/Rhythm: Sinus tachycardia QRS, ST, QT: NORMAL PA, QRS, QT] Impression: NORMAL EKG PROCEDURE: XR Chest. CLINICAL INDICATION: chest pain, sepsis TECHNIQUE: Single frontal view of the chest was obtained COMPARISON: 07/18/2016 , 09/03/2016 FINDINGS: The heart and mediastinum are within normal limits. There is a mild patchy left lower lobe interstitial infiltrate.. There is mild dextroscoliosis of the thoracic spine. There is no pleural effusion or pneumothorax. RPTAT: AA IMPRESSION: Mild patchy left lower lobe interstitial infiltrate. .Karthik Rod MD, Date Time Electronically viewed and signed by .Karthik Rod MD, on 12/07/2016 12: 49 .S/ CC: HARJINDER SAWYER DO Admit MDM: Patient's infectious symptoms have not stabilized and the patient is at risk of rapid decompensation. The patient will be admitted for careful hydration, antibiotic therapy, and infectious source control. Severe Sepsis criteria: Infectious source: Pneumonia End organ damage indicated by: Elevated lactate lactate > 2.0 mmol/L Hypotension (SBP < 90 or >40 mmHG drop or MAP < 65) Acute Resp Failure (sat < 92% w/o oxygen) B2B Sales Consultant > 2.0 INR > 1.5 Plt < 100 Bili > 2 Sepsis Management: Time of recognition of severe sepsis/septic shock: 2 PM Within 3 hours of recognition: Blood cultures x 2 before broad-spectrum antibiotics: Yes 30 ml/kg NS bolus completed Initial lactate 3.2 repeat lactate pending not indicated as initial lactate < 2.0 Accepting Care Team Current data and ongoing care discussed. Time: Admitting Physician: Fire Apparatus Engineer(s): Outstanding Data: None Critical Care Time: 30 minutes Treatments/Evaluations: Close monitoring and treatment of unstable vital signs, cardiorespiratory, and neurologic status, while maintaining tight balance of fluid, respiratory, and cardiac interventions. This includes the administration of emergency fluid management while maintaining close respiratory support as well as the provision of immediate and broad-spectrum antibiotic therapy, while performing a simultaneous assessment for possible sources in order to direct targeted therapy. This time includes discussing the case with the patient and the patient's family. This time also includes the consideration for invasive and chemical support to prevent cardiopulmonary collapse. This time does not include all procedures stated elsewhere in this record. This time also includes reviewing old records, labs and radiological studies. This time includes examining and re-examining the patient. Additionally, this time also includes arranging care with admitting and consulting physicians. Departure Diagnosis: Primary Impression: Sepsis Qualified Code: A41.9 - Sepsis, due to unspecified organism Additional Impression: Pneumonia Qualified Code: J18.1 - Pneumonia of left lower lobe due to infectious organism Condition: HARJINDER Aguiar DO Dec 07, 2016 15:27
[2016-12-07] MEDS ORDERED: ACETAMINOPHEN 325 MG TAB PO PRN ×2 (16:00→19:00)
[2016-12-07] MEDS ORDERED: ONDANSETRON 4 MG INJ IV PRN ×2 (16:00→19:00)
--- NOTE | 2016-12-07 16:20 | EN ---
Date/Time of Note Date/Time of Note DATE: 12/07/16 TIME: 16:16 Event Note Medicine Medicine Event Note 46-year-old female well-known to the hospitalist service,with a past medical history of chronic pain syndrome, hypothyroidism, gastroparesis 2/2 vagotomy, status post gastric bypass surgery in the past, pain and opioid dependence, depression, GERD, alcoholic liver disease, asthma presents with lower extremity redness and blistering, likely cellulitis, history of noncompliance as well. Patient brought in today because of cachectic and was not providing much information to the ER staff and myself upon questioning today. Patient was recently discharged from our hospital December 05, 2016and after a prolonged hospital course, see discharge summary from December 05. Today patient was found with slightly elevated lactic acid 3.2, but normal CBC, normal basic metabolic count. Chest x-ray showed mild infiltrate in the left side, but no fevers in the patient. When I examined patient she was alert and oriented 3 heart sounds are normal, lungs are clear, abdominal exam was negative, neurologically intact no focal deficits. Case was reviewed with showcase trimmer and ideally patient needs to be placed in some kind of correction facility to continue medical care, if not, after getting some IV fluids and possibly a dose of antibiotics x1, patient from medicine recommendations can be safely discharged back home today in improved condition, with again the strong recommendation that she adhere to her medications at home as she does have a history of noncompliance. TOSIN ENCARNACION Dec 07, 2016 16:20
[2016-12-07 17:10] VITALS: BP 84/53; PULSE 93; RESP 18
[2016-12-07] MEDS: SOD CHLORIDE 0.9% 1,000 ML IV SCH (17:25)
[2016-12-07 17:54] VITALS: PULSE 94
[2016-12-07] MEDS ORDERED: DOCUSATE SODIUM 100 MG CAP PO PRN (19:00)
[2016-12-07] MEDS ORDERED: HYDROCODONE/APAP (5/325) TAB PO PRN (19:00)
[2016-12-07] MEDS ORDERED: VANCOMYCIN IV PER PHARMACY XX SCH (19:00)
[2016-12-07] MEDS ORDERED: MAGNESIUM HYDROXIDE 30ML CUP PO PRN (19:00)
[2016-12-07] MEDS ORDERED: ZOLPIDEM 5 MG TAB PO PRN (19:00)
[2016-12-07] MEDS ORDERED: NACL 0.9% 3 ML SYG IV SCH (19:00)
[2016-12-07] MEDS ORDERED: morphine 2 MG INJ IV PRN (19:00)
[2016-12-07 20:03] VITALS: PULSE 95
[2016-12-07 20:30] VITALS: BP 92/50; RESP 16
[2016-12-07] MEDS ORDERED: MONTELUKAST 10 MG TAB PO SCH (21:00)
[2016-12-07] MEDS ORDERED: traZODone 50 MG TAB PO SCH (21:00)
[2016-12-07] MEDS: DOCUSATE SODIUM 100 MG CAP PO SCH (21:43)
[2016-12-07] MEDS ORDERED: PIPER-TAZO 3.375 GM IV (PMX) 100 ML IVPB SCH (22:00)
[2016-12-07 23:46] VITALS: BP 91/56; RESP 18
[2016-12-08] VITALS (9 sets, daily range): BP systolic 100–113; BP diastolic 62–67; PULSE 110–129; RESP 17–18
[2016-12-08] MEDS: SOD CHLORIDE 0.9% 1,000 ML IV SCH ×2 (01:31→09:12)
[2016-12-08] MEDS ORDERED: LEVOTHYROXINE 150 MCG TAB PO SCH (06:00)
[2016-12-08 07:24] LABS: HEMATOCRIT 25.6 % (37.0-47.0); HEMOGLOBIN 8.4 g/dl (12.0-16.0); LYMPHOCYTES # 1.9 10^3/ul (0.8-2.9); LYMPHOCYTES % 26.9 % (15.0-51.0); MEAN CORPUSCULAR HEMOGLOBIN 31.9 pg (29.0-33.0); MEAN CORPUSCULAR HGB CONC 32.8 g/dl (32.0-37.0); MEAN CORPUSCULAR VOLUME 97.3 fl (82.0-101.0); MONOCYTE # 0.3 10^3/ul (0.3-0.9); MONOCYTES % 4.3 % (0.0-11.0); NEUTROPHIL # 4.9 10^3/ul (1.6-7.5); NEUTROPHILS % 68.4 % (39.0-77.0); PLATELET COUNT 257 10^3/UL (140-415); RED BLOOD COUNT 2.63 10^6/ul (4.20-5.40); RED CELL DISTRIBUTION WIDTH 19.6 % (11.5-14.5); WHITE BLOOD COUNT 7.1 10^3/ul (4.8-10.8)
[2016-12-08 08:18] LABS: CREATININE 0.66 mg/dl (0.44-1.00); MAGNESIUM 1.2 mg/dl (1.7-2.5); PHOSPHORUS 3.1 mg/dl (2.5-4.9); POTASSIUM 3.8 mmol/L (3.5-5.1)
[2016-12-08] MEDS ORDERED: CHOLECALCIFEROL 1,000 UNIT TAB PO SCH (09:00)
[2016-12-08] MEDS ORDERED: FOLIC ACID 1 MG TAB PO SCH (09:00)
[2016-12-08] MEDS: DOCUSATE SODIUM 100 MG CAP PO SCH (09:12)
--- NOTE | 2016-12-08 10:42 | PDOCDIS ---
Discharge Instructions CONDITION Patient Condition: Stable HOME CARE INSTRUCTIONS: Diet Instructions: Low Fat /Cholesterol ACTIVITY: Activity Restrictions: Slowly Increase Activity FOLLOW UP/APPOINTMENTS Follow-up Plan Take your medications as prescribed, see your doctor in the clinic in 1 week. TOSIN ENCARNACION Dec 08, 2016 10:42
--- NOTE | 2016-12-08 10:59 | DS ---
Date/Time of Note Date/Time of Note DATE: 12/08/16 TIME: 10:55 Discharge Summary Admission/Discharge Info Admit Date/Time Dec 07, 2016 at 15:15 Discharge Date/Time Discharge Diagnosis 1. Mild sepsis sec to mild URI with lactic acidosis - resolved 2. Lower extremity erythema and swelling- patient has multiple admissions for this before, initial thought on admission was this was secondary to cellulitis. However, given low albumin, this may be from nutritional deficiency from inability to absorb nutrients from bypass surgery + decreased PO intake-->pt with severe protein calorie malnutrition, also B vitamin deficiency. -Continue Lasix PO -Continue B complex vitamin, thiamine, multivitamin 2. Hyponatremia-resolved Asymptomatic, monitor for now BMP every morning 3. History of alcoholic liver disease-although no cirrhosis identified on last CT scan from August 2016 -Continue low-dose diuresis 5. Opioid dependency: Pain management consult on the case -For now continue MS Contin 3 times daily only for now, oxy IR as needed, follow -up final pain management consult recommendations 6. History of positive tumor markers with elevated CA 19-9, CA 125. and CEA : Patient has in the past been evaluated by oncology. CT chest/abdomen/pelvis was negative for malignancy. Colonoscopy also without finding of malignancy at that time. -Per oncology on last admission in August 2016, no need to do additional workup and no need to order additional tumor markers, monitor for now 7. History of Gastric bypass. Continue proton pump inhibitor. 8. Chronic depression -Continue antidepressant 9. Eye irritation: Continue rewetting drops as needed 10. Hypothyroidism: Recommend holding thyroid medications for 1 week then restarting at that time given her residents borderline tachycardia Patient Condition: Stable Hospital Course 46-year-old female well-known to the hospitalist service,with a past medical history of chronic pain syndrome, hypothyroidism, gastroparesis 2/2 vagotomy, status post gastric bypass surgery in the past, pain and opioid dependence, depression, GERD, alcoholic liver disease, asthma presents with lower extremity redness and blistering, likely cellulitis, history of noncompliance as well. Patient brought in yesterday because of cachectic and was not providing much information to the ER staff and myself upon questioning. Patient was recently discharged from our hospital December 05, 2016and after a prolonged hospital course, see discharge summary from December 05. Today patient was found with slightly elevated lactic acid 3.2, but normal CBC, normal basic metabolic count. Chest x-ray showed mild infiltrate in the left side, but no fevers in the patient. When I examined patient she was alert and oriented 3 heart sounds are normal, lungs are clear, abdominal exam was negative, neurologically intact no focal deficits. Case was reviewed with window caser and ideally patient needs to be placed in some kind of longterm facility to continue medical care, if not, admitted for 24 hours. After getting some IV fluids and antibiotics, her lactic acidosis resolved, no fevers, normal white blood cell count. Patient can be safely discharged back home today in improved condition, with again the strong recommendation that she adhere to her medications at home as she does have a history of noncompliance. See below for full list of discharge medications. She will also get Levaquin 750 mg p.o. daily for 7 days. Of note, this 46-year-old female with a past medical history of chronic pain syndrome, hypothyroidism, gastroparesis 2/2 vagotomy, status post gastric bypass surgery in the past, pain and opioid dependence, depression, GERD, alcoholic liver disease, asthma presents with lower extremity redness and blistering, likely cellulitis, history of noncompliance as well. Patient is well known to our service and has been admitted here to [facility] multiple times past few months for the same general issues of lower extremity redness and swelling and history of noncompliance with medications in the past, prior history of opioid dependence in the past as well. In the past, she has had positive tumor markers for which she had a malignancy workup with negative CT chest/abdomen/pelvis, as this was confirmed by hematology oncology consultation, and no further workup is required from their perspective.. She also had a colonoscopy with no findings of malignancy. She is strongly recommended to follow-up with her primary care doctor, adhere to her medications strictly. See below for full list of discharge medications. Home Meds Active Scripts Folic Acid* (Folic Acid*) 1 Mg Tablet, 1 MG PO DAILY, #30 TAB 2 Refills Prov:SANDY ENCARNACIONP S. 12/05/16 Trazodone Hcl* (Desyrel*) 50 Mg Tab, 50 MG PO HS, #30 TAB 3 Refills Prov:RAZUHAIR,TOSIN S. 12/05/16 Montelukast Sodium* (Montelukast Sodium*) 10 Mg Tablet, 10 MG PO HS for 30 Days , #30 TAB 3 Refills Prov:TOSIN ENCARNACION S. 12/05/16 Reported Medications Docusate Sodium* (Docusate Sodium*) 100 Mg Capsule, 100 MG PO BID, #60 CAP 12/07/16 Cholecalciferol* (Vitamin D3*) 1,000 Unit Tablet, 1000 UNIT PO DAILY, TAB 12/07/16 Discontinued Reported Medications Levothyroxine Sodium* (Levoxyl*) 150 Mcg Tablet, 150 MCG PO BEFORE BREAKFAST, # 30 TAB 12/07/16 Ipratropium-Albuterol (Ipratropium-Albuterol) 0.5-3 Mg/3 Ml Ampul.neb, 3 ML INHALATION Q4 Y for SHORTNESS OF BREATH, #30 VIAL 01/27/16 Tolterodine Tartrate* (Detrol LA*) 4 Mg Cap.sr.24h, 4 MG PO DAILY, #30 CAP 08/29/16 Thiamine* (Thiamine*) 100 Mg Tablet, 100 MG PO DAILY, TAB 01/27/16 Ascorbic Acid* (Vitamin C*) 500 Mg Capsule.sa, 500 MG PO DAILY, CAP 01/06/16 Discontinued Scripts Lactulose* (Cephulac*) 20 Gm/30 Ml Soln, 20 GM PO Q8, #1 BOTTLE 4 Refills Prov:TOSIN ENCARNACION S. 12/05/16 Vitamin B Complex/Vit C (Total B with C) 1 Each Tablet, 1 CAP PO DAILY, #30 TAB 3 Refills Prov:TOSIN ENCARNACION S. 12/05/16 [Thiamine] 100 MG TAB No Conflict Check, 100 MG PO DAILY, #30 3 Refills Prov:TOSIN ENCARNACION S. 12/05/16 Multivitamins* (Theragran*) 1 Tab Tab, 1 TAB PO DAILY, #30 TAB 2 Refills Prov:TOSIN ENCARNACION S. 12/05/16 Ascorbic Acid (Vitamin C) 500 Mg Tab, 500 MG PO DAILY, #30 TAB 2 Refills Prov:TOSIN ENCARNACION S. 12/05/16 Tolterodine Tartrate* (Tolterodine Tartrate* ER) 4 Mg Cap.er.24h, 4 MG PO HS, # 30 CAP 2 Refills Prov:TOSIN ENCARNACION . 12/05/16 Hydrocortisone* Topical (Hydrocortisone* Topical) 0.5%-28.35 Gm Cream..g., 1 APPLIC TOP BID, #1 BOTTLE 2 Refills Prov:TOSIN ENCARNACION . 12/05/16 Clobetasol Propionate* (Temovate*) 0.05%-15gm Cream..g., 1 APPLIC TOP BID, #1 BOTTLE 2 Refills Prov:TOSIN ENCARNACION . 12/05/16 [Saccharomyces Boulardii] 250 MG CAP No Conflict Check, 250 MG PO BID, #60 2 Refills Prov:TOSIN ENCARNACION . 12/05/16 Polyvinyl Alcohol* (Akwa Tears*) 1.4% - 15 Ml Drops, 2 DROP BOTH EYES Q6H Y for DRY EYES, #1 BOTTLE 1 Refill Prov:TOSIN ENCARNACION 12/05/16 Zzaepl-Ayifawpf-Jxytbdv* (Memo WHITE* 12,000) 12,000 L-38,000-60,000 Unit Capsule.dr, 1 CAP PO WITH MEALS, #90 2 Refills Prov:TOSIN ENCARNACION . 12/05/16 Potassium Chloride (Potassium Chloride) 20 Meq Packet, 10 MEQ PO DAILY, #30 PACKET 2 Refills Prov:TOSIN ENCARNACION 12/05/16 Venlafaxine Hcl* (Venlafaxine Hcl ER*) 75 Mg Cap.er.24h, 225 MG PO DAILY, #30 CAP 2 Refills Prov:TOSIN ENCARNACION 12/05/16 Oxycodone Hcl* (IR) (Oxycodone Hcl*) 15 Mg Tablet, 15 MG PO Q4H Y for PAIN LEVEL 6-10, #30 TAB Prov:TOSIN ENCARNACION . 12/05/16 Morphine Sulfate (Morphine Sulfate ER) 15 Mg Tablet.er, 15 MG PO Q8, #30 TAB Prov:TOSIN ENCARNACION 12/05/16 Lorazepam* (Ativan*) 0.5 Mg Tablet, 0.5 MG PO Q6H Y for ANXIETY, #30 TAB Prov:TOSIN ENCARNACION . 12/05/16 Gabapentin* (Gabapentin*) 300 Mg Capsule, 300 MG PO BID, #60 CAP 1 Refill Prov:TOSIN ENCARNACION S. 12/05/16 Hydroxyzine Hcl* (Atarax*) 25 Mg Tab, 50 MG PO Q6H Y for ITCHING, #60 TAB Prov:TOSIN ENCARNACION S. 12/05/16 Metoprolol Tartrate* (Lopressor*) 25 Mg Tab, 12.5 MG PO BID, #60 TAB 2 Refills Prov:TOSIN ENCARNACION S. 12/05/16 Diphenhydramine Hcl* (Benadryl*) 25 Mg Cap, 25 MG PO Q6H Y for ITCHING, #60 CAP Prov:TOSIN ENCARNACION . 12/05/16 Pantoprazole* (Pantoprazole*) 40 Mg Tablet.dr, 40 MG PO DAILY@06 for 30 Days, # 30 2 Refills Prov:TOSIN ENCARNACION . 12/05/16 Furosemide (Lasix) 20 Mg Tab, 20 MG PO DAILY for 30 Days, #30 TAB 3 Refills Prov:TOSIN ENCARNACION S. 12/05/16 Zinc Sulfate* (Zinc Sulfate*) 220 Mg Tablet, 220 MG PO DAILY, #30 TAB 3 Refills Prov:TOSIN ENCARNACION . 12/05/16 Prednisone (Prednisone) 10 Mg Tab, 10 MG PO DAILY, #16 TAB Take 5 tablets tomorrow September 14, 2016 Take 4 tablets on September 15, 2016 Take 3 tablets on September 16, 2016 Take 2 tablets on September 17, 2016 Take 1 tablets on September 18, 2016 Take 1 tablet on September 19 2016 Then stop. Prov:DOMINICK MCKEON MD 09/13/16 Oxycodone Hcl* (Oxycontin*) 10 Mg Tab.sr.12h, 30 MG PO BID for 30 Days Prov:TRINIDAD GOODE. 07/27/16 Multivitamins* (Theragran*) 1 Tab Tab, 1 TAB PO DAILY for 30 Days, TAB Prov:TRINIDAD GOODE. 07/27/16 Potassium Chloride* (Potassium Chloride*) 20 Meq/15 Ml Liquid, 10 MEQ PO DAILY for 30 Days, ML Prov:TRINIDAD GOODE. 07/27/16 Clobetasol Propionate* (Clobetasol Propionate*) 60 Gm Cream.gm., 1 APPLIC TOP BID, #1 TUB Prov:TRINIDAD GOODE. 07/27/16 [Lactulose] 20 GM/30 ML SOLN No Conflict Check, 20 GM PO Q8 for 30 Days, 4 Refills Prov:TRINIDAD GOODE. 07/27/16 Hydroxyzine Hcl* (Atarax*) 25 Mg Tab, 50 MG PO Q6 Y for ITCHING, #30 TAB 1 Refill Prov:TRINIDAD GOODE. 07/27/16 Gabapentin* (Gabapentin*) 100 Mg Capsule, 100 MG PO BID for 30 Days, CAP 2 Refills Prov:TRINIDAD GOODE. 07/27/16 Venlafaxine Hcl* (Venlafaxine Hcl*) 75 Mg Tablet, 150 MG PO DAILY for 30 Days, TAB Prov:CHENCHO BANUELOS NP 12/30/15 Levothyroxine Sodium* (Levoxyl*) 175 Mcg Tablet, 175 MCG PO DAILY@06 for 30 Days , TAB Prov:CHENCHO BANUELOS V. [employer] 12/30/15 Follow-up Plan Take your medications as prescribed, see your doctor in the clinic in 1 week. Primary Care Provider Jimenez Baeza Time spent on discharge: > 30 minutes Pending Labs Laboratory Tests Test 12/07/16 12:20 12/07/16 15:20 12/07/16 19:26 12/08/16 00:54 White Blood Count 5.410^3/ul (4.8-10.8) Red Blood Count 3.3310^6/ul (4.20-5.40) Hemoglobin 10.4g/dl (12.0-16.0) Hematocrit 32.5% (37.0-47.0) Mean Corpuscular Volume 97.6fl (82.0-101.0) Mean Corpuscular Hemoglobin 31.2pg (29.0-33.0) Mean Corpuscular Hemoglobin Concent 32.0g/dl (32.0-37.0) Red Cell Distribution Width 18.9% (11.5-14.5) Platelet Count 32684^3/UL (140-415) Mean Platelet Volume 11.2fl (7.4-10.4) Neutrophils % 47.3% (39.0-77.0) Lymphocytes % 48.2% (15.0-51.0) Monocytes % 3.7% (0.0-11.0) Eosinophils % 0.2% (0.0-7.0) Basophils % 0.2% (0.0-2.0) Nucleated Red Blood Cells % 0.0/100WBC (0.0-0.0) Neutrophils # 2.610^3/ul (1.6-7.5) Lymphocytes # 2.610^3/ul (0.8-2.9) Monocytes # 0.210^3/ul (0.3-0.9) Eosinophils # 0.010^3/ul (0.0-0.5) Basophils # 0.010^3/ul (0.0-0.1) Nucleated Red Blood Cells # 0.010^3/ul (0.0-0.0) Prothrombin Time 15.6Sec (12.2-14.2) Prothrombin Time Ratio 1.2 INR International Normalized Ratio 1.23 Activated Partial Thromboplast Time 36.5Sec (25.0-35.0) Sodium Level 139mmol/L (135-144) Potassium Level 4.2mmol/L (3.5-5.1) Chloride Level 103mmol/L (97-110) Carbon Dioxide Level 28mmol/L (21-31) Anion Gap 12 (8-16) Blood Urea Nitrogen 7mg/dl (7-20) Creatinine 0.60mg/dl (0.44-1.00) Glucose Level 93mg/dl (70-220) Lactic Acid Level 3.2mmol/L (0.5-2.0) 5.6mmol/L (0.5-2.0) 5.3mmol/L (0.5-2.0) 3.1mmol/L (0.5-2.0) Calcium Level 8.0mg/dl (8.4-10.2) Total Bilirubin 0.7mg/dl (0.2-1.3) Direct Bilirubin 0.00mg/dl (0.00-0.20) Indirect Bilirubin 0.7mg/dl (0-1.1) Aspartate Amino Transf (AST/SGOT) 38IU/L (15-46) Alanine Aminotransferase (ALT/SGPT) 40IU/L (13-69) Alkaline Phosphatase 168IU/L (42-121) Troponin I < 0.012ng/ml (0.00-0.12) Total Protein 6.1g/dl (6.1-8.1) Albumin 2.5g/dl (3.3-4.9) Globulin 3.60g/dl (1.3-3.2) Albumin/Globulin Ratio 0.69 Test 12/08/16 06:48 White Blood Count 7.110^3/ul (4.8-10.8) Red Blood Count 2.6310^6/ul (4.20-5.40) Hemoglobin 8.4g/dl (12.0-16.0) Hematocrit 25.6% (37.0-47.0) Mean Corpuscular Volume 97.3fl (82.0-101.0) Mean Corpuscular Hemoglobin 31.9pg (29.0-33.0) Mean Corpuscular Hemoglobin Concent 32.8g/dl (32.0-37.0) Red Cell Distribution Width 19.6% (11.5-14.5) Platelet Count 86440^3/UL (140-415) Mean Platelet Volume 11.0fl (7.4-10.4) Neutrophils % 68.4% (39.0-77.0) Lymphocytes % 26.9% (15.0-51.0) Monocytes % 4.3% (0.0-11.0) Eosinophils % 0.0% (0.0-7.0) Basophils % 0.0% (0.0-2.0) Nucleated Red Blood Cells % 0.0/100WBC (0.0-0.0) Neutrophils # 4.910^3/ul (1.6-7.5) Lymphocytes # 1.910^3/ul (0.8-2.9) Monocytes # 0.310^3/ul (0.3-0.9) Eosinophils # 0.010^3/ul (0.0-0.5) Basophils # 0.010^3/ul (0.0-0.1) Nucleated Red Blood Cells # 0.010^3/ul (0.0-0.0) Sodium Level 141mmol/L (135-144) Potassium Level 3.8mmol/L (3.5-5.1) Chloride Level 110mmol/L (97-110) Carbon Dioxide Level 22mmol/L (21-31) Anion Gap 13 (8-16) Blood Urea Nitrogen 6mg/dl (7-20) Creatinine 0.66mg/dl (0.44-1.00) Glucose Level 87mg/dl (70-220) Lactic Acid Level 2.0mmol/L (0.5-2.0) Calcium Level 7.0mg/dl (8.4-10.2) Phosphorus Level 3.1mg/dl (2.5-4.9) Magnesium Level 1.2mg/dl (1.7-2.5) TOSIN ENCARNACION. Dec 08, 2016 10:59
[2016-12-08] MEDS ORDERED: MAGNESIUM SULFATE 3 GM in SOD CHLORIDE 0.9% 100 ML IVPB ONE (11:00)
[2016-12-08] MEDS ORDERED: LEVOFLOXACIN 750MG/D5W (PMX) 150 ML IVPB SCH (14:00)
[2016-12-08] MEDS ORDERED: VANCOMYCIN 750 MG in SOD CHLORIDE 0.9% 150 ML IVPB SCH (16:00)
[2016-12-08] MEDS ORDERED: LEVOFLOXACIN 750 MG TABLET PO ONE (17:30)
== END 2016-12-08 18:08 | disposition home or self-care (01) | DRG 871 ==
LOC: E/R 11:56 → TEL 15:15
PROVIDERS: ADMIT Internal Medicine; ATTEND Internal Medicine
DX: A41.9 Sepsis, unspecified organism (principal); J18.9 Pneumonia, unspecified organism; E43 Unspecified severe protein-calorie malnutrition; R64 Cachexia; K70.9 Alcoholic liver disease, unspecified; E87.1 Hypo-osmolality and hyponatremia; F11.20 Opioid dependence, uncomplicated; Z68.1 Body mass index [BMI] 19.9 or less, adult; Z91.19 Patient's noncompliance with other medical treatment and regimen; Z98.84 Bariatric surgery status; F32.9 Major depressive disorder, single episode, unspecified; E03.9 Hypothyroidism, unspecified
CPT/HCPCS: 36415; 70450; 71010; 80048; 80053; 83605; 83735; 84100; 84484; 85025; 85610; 85730; 87040; 87081; 93005; 96361; 96374; 96375; J1956; J3370; J3475; J7030